=== PATIENT | female | born 1940 | race Caucasian/White ===

== ENCOUNTER 2023-04-29 14:10 | Outpatient (REF) | payer MEDICARE, SELFPAY ==
[2023-04-29 14:21] LABS: Bilirubin Urine NEGATIVE (NEGATIVE); Blood Urine SMALL (NEGATIVE); Clarity Urine SLIGHTLY CLOUDY (CLEAR); Color Urine LT. YELLOW (YELLOW); Glucose Urine UA NEGATIVE (NEGATIVE); Ketones Urine NEGATIVE (NEGATIVE); Leukocyte Esterase Urine SMALL (NEGATIVE); Nitrite Urine POSITIVE (NEGATIVE); Protein Urine NEGATIVE (NEG/TRACE); Specific Gravity Urine 1.025 (1.005-1.025); Urine Microscopic Indicated YES; Urobilinogen Urine 0.2 EU/dL (0.2-1.0)
[2023-04-29 14:28] LABS: Bacteria Urine SMALL #/HPF (NONE SEEN); Cast Seen? NONE SEEN #/LPF (NONE SEEN); Crystals Seen? None Seen #/HPF (None Seen); Mucus Urine NONE SEEN (NONE SEEN); RBC Urine 0-2 #/HPF (0-2); Squamous Epithelial Cell Urine RARE #/LPF (NONE/RARE); Urine Culture Indicated YES
== END 2023-04-29 14:11 | disposition home or self-care (01) ==
LOC: LAB 14:10
PROVIDERS: PCP Family Medicine; Visit Provider Family Medicine
DX: R35.0 Frequency of micturition (principal); R32 Unspecified urinary incontinence
CPT/HCPCS: 81001; 87086; 87150; 87186

== ENCOUNTER 2023-11-04 08:31 | Outpatient (REF) | payer MEDICARE, SELFPAY ==
--- OUTSIDE RECORDS SUMMARY | 2023-11-04 08:38 | XMS_ITS | CCD ---
Author Organization [place] [facility] Care Team Providers Care Engraver Flatware Name Role Phone Whitney Goodman MD Primary Care Provider [phone] DOLORES CHAPA Referring Unavailable WHITNEY GOODMAN Primary Care Unavailable WHITNEY GOODMAN Primary Care Unavailable DOLORES CHAPA Referring Unavailable WHITNEY GOODMAN Primary Care Unavailable UNKNOWN, PHYSICIAN Referring Unavailable JULIETH YOUNG Attending Unavailable BINA MOSCOSO Admitting Unavailable WHITNEY GOODMAN Primary Care Unavailable EMERGENCY, BELLUE Referring Unavailable YANIKC HEALY Admitting Unavailable YANICK HEALY Attending Unavailable MAXINE Gamble, DR OLSON Primary Care Unavailable HOY ., DR OLSON Consulting Unavailable HOY ., DR OLSON Admitting Unavailable HOY ., DR OLSON Attending Unavailable ZIEBER, DR NGOC Villafuerte Consulting Unavailable HOY ., DR OLSON Primary Care Unavailable ZIEBCORNELIUS, DR NGOC Villafuerte Consulting Unavailable ANH RAMIREZ Admitting Unavailable ANH RAMIREZ Attending Unavailable ANH RAMIREZ Consulting Unavailable HOY ., DR OLSON Attending Unavailable HOY ., DR OLSON Primary Care Unavailable HOY ., DR OLSON Admitting Unavailable YENIFER, DR DIANA Villafuerte Consulting Unavailable HOY ., DR OLSON Consulting Unavailable JAZZY, DR МАРИЯ Givens Consulting Unavailable REINA CNOWAY Consulting Unavailable Мария Whittington Consulting Unavailable HARVEYY ., DR OLSON Attending Unavailable HOY ., DR OLSON Primary Care Unavailable HOVern ., DR OLSON Consulting Unavailable MAXINE ., DR OLSON Admitting Unavailable ZIEBCORNELIUS, DR NGOC Villafuerte Consulting Unavailable PAY ., DR BECKER Consulting Unavailable CHRISTINATOMASA REECE Consulting Unavailable HOY ., DR OLSON Primary Care Unavailable HOY ., DR OLSON Consulting Unavailable HOY ., DR OLSON Admitting Unavailable HOY ., DR OLSON Attending Unavailable CURTER, DR NGOC Villafuerte Consulting Unavailable ANAYELI .LEONEL Consulting Unavailabl ana WELLS ., DR IQBAL Consulting Unavailable AHDOOT, LEESA Consulting Unavailable RENEA DIXON Consulting Unavailable KEITH ., JOSE Consulting Unavailable SHAIKH Ady FELIPE Consulting Unavailable MARGAUX WILDE Consulting Unavailable FIDEL MICHAELS Consulting Unavailable HOY ., DR OLSON Consulting Unavailable HOY ., DR OLSON Primary Care Unavailable HOY ., DR OLSON Attending Unavailable HOY ., DR OLSON Admitting Unavailable HOY ., DR OLSON Primary Care Unavailable HOY ., DR OLSNO Consulting Unavailable HOY ., DR OLSON Admitting Unavailable HOY ., DR OLSON Attending Unavailable HOY ., DR OLSON Consulting Unavailable HOY ., DR OLSON Admitting Unavailable HOY ., DR OLSON Attending Unavailable HOY ., DR OLSON Primary Care Unavailable HOY ., DR OLSON Consulting Unavailable HOY ., DR OLSON Admitting Unavailable HOY ., DR OLSON Primary Care Unavailable HOY ., DR OLSON Attending Unavailable HOY ., DR OLSON Primary Care Unavailable KEITH ., JOSE Attending Unavailable KEITH ., JOSE Admitting Unavailable KEITH ., JOSE Consulting Unavailable ANSHUL LOPEZ Consulting Unavailable EBONI CHAN Consulting Unavailable DAVID GRIFFITH Consulting Unavailable MAXINE ., DR OLSON Primary Care Unavailable AUBREY PANTOJA Attending Unavailable YENIFER, DR DIANA Villafuerte Consulting Unavailable AUBREY PANTOJA Admitting Unavailable RONDA, DR NGOC Villafuerte Consulting Unavailable AUBREY PANTOJA Consulting Unavailable JOHNATHON, LEESA Consulting Unavailable JUANITO ADAME Consulting Unavailable SHINE, CHRISTOPHER Referring Unavailable SHINE, CHRISTOPHER Referring Unavailable DEVAN, GEORGE A Referring Unavailable SHINE, CHRISTOPHER Referring Unavailable SHINE, CHRISTFORREST Attending Unavailable DEVAN, GEORGE A Attending Unavailable DEVAN, GEORGE A Attending Unavailable SHINE, CHRISTOPHER Attending Unavailable EBRAHEIM, JASKARAN Referring Unavailable DEVAN, GEORGE A Referring Unavailable SHINE, CHRISTADEER Attending Unavailable ANH RAMIREZ Referring Unavailable VELY, ULISES Admitting Unavailable LEONID WHITTEN Attending Unavailable DEVAN, GEORGE A Referring Unavailable SHINE, CHRISTOPHER Referring Unavailable EBRAHEIM, JASKARAN Referring Unavailable GEORGE HARTMAN Referring Unavailable GEORGINAEVANREMY Referring Unavailable MERZA, NOORALDIN Referring Unavailable GAGANDEEP LUGO Referring Unavailable MERGALLITO, NOORALDIN Referring Unavailable CARLIE SHINE Referring Unavailable GEORGE HARTMAN Attending Unavailable SELF, REFERRED Referring Unavailable CARLIE SHINE Referring Unavailable Allergies Allergy Classification Reported Allergen(s) Allergy Type Date of Onset Reaction(s) Facility Acetaminophen / oxyCODONE (2 sources) Acetaminophen / oxyCODONE Drug Allergy 09-25-19 21 [facility] Adhesive Tape (2 sources) Adhesive Tape Substance Allergy 10-10-19 21 [facility] Quinolones (antibiotic) (2 sources) Ciprofloxacin Drug Allergy 10-10-19 21 Other (See Comments) [facility] Sulfamethoxazole / Trimethoprim (2 sources) Sulfamethoxazole / Trimethoprim Drug Allergy 10-10-19 21 [facility] Sulfonamides (antibiotic) (2 sources) Sulfonamides (Antibiotic) Drug Allergy 10-10-19 21 [facility] (2 sources) Acetaminophen / oxyCODONE Drug Allergy 09-25-19 21 [facility] Rep[facility] (3 sources) Adhesive agent; Translations: [ADHESIVE] Drug allergy (disorder) 06-11-19 14 [facility] (2 sources) Ciprofloxacin Drug Allergy 09-29-19 17 [facility] (2 sources) Penicillin Drug Allergy 11-22-19 22 [facility] (2 sources) Sulfonamides (Antibiotic) Drug allergy (disorder) 12-21-19 12 [facility] (1 source) Acetaminophen / oxyCODONE; Translations: [OXYCODONE-ACETAMIN OPHEN] Drug Allergy 09-25-19 21 [facility] (1 source) Ciprofloxacin; Translations: [CIPROFLOXACIN] Drug Allergy 10-10-19 21 [facility] (1 source) Sulfamethoxazole / Trimethoprim; Translations: [SULFAMETHOXAZOLE-T RIMETHOPRIM] Drug Allergy 10-10-19 21 [facility] Rep[facility] (1 source) Sulfonamides (Antibiotic); Translations: [SULFA (SULFONAMIDE ANTIBIOTICS)] Propensity to adverse reactions to drug (disorder) 04-19-20 14 [facility] Rep[facility] (1 source) ADHESIVE TAPE-SILICONES; Translations: [ADHESIVE TAPE-SILICONES] Propensity to adverse reactions to drug (disorder) 10-10-19 21 [facility] NEGATED: Highlighted row has been ruled out!Unclassified (2 sources) Other Propensity to adverse reactions 06-23-19 16 Rash, Other (See Comments) [facility] Medications Current Medications Medication Drug Class(es) Dates Sig (Normalized) Sig (Original) ALPRAZolam 0.5 mg oral tablet (2 sources) Benzodiazepine Start: 07-15-2020 take 1-2 tablets by mouth three times daily as needed ALPRAZolam (XANAX) 0.5 MG tablet TAKE 1 TO 2 TABLETS BY MOUTH 3 TIMES A DAY NEEDED 0 07/15/2020 Active carbidopa 10 mg / levodopa 100 mg oral tablet (2 sources) Aromatic Amino Acid Decarboxylation Inhibitor, Aromatic Amino Acid Start: 09-28-2020 take 1 tablet by mouth three times daily carbidopa-levodop a (SINEMET) 10-100 MG per tablet TAKE 1 TABLET BY MOUTH THREE TIMES A DAY 0 09/28/2020 Active clonazePAM 0.5 mg oral tablet (1 source) Benzodiazepine Start: 10-28-2020 End: 11-27-2020 take 1 tablet by mouth twice daily clonazePAM (KLONOPIN) 0.5 MG tablet Indications: Anxiety , Panic disorder Take 1 tablet by mouth 2 times daily for 30 days. 60 tablet 3 10/28/2020 11/27/2020 Active hyoscyamine sulfate 0.125 mg sublingual tablet (2 sources) Start: 09-01-2020 hyoscyamine (LEVSIN/SL) 125 MCG sublingual tablet memantine hydrochloride 5 mg oral tablet (1 source) P-gqyvcc-C-aspartate Receptor Antagonist Start: 10-20-2020 take 1 tablet by mouth once daily memantine (NAMENDA) 5 MG tablet Take 1 tablet by mouth nightly 30 tablet 1 10/20/2020 Active metoprolol tartrate 25 mg oral tablet (2 sources) beta-Adrenergic Roberto Start: 10-08-2020 metoprolol tartrate (LOPRESSOR) 25 MG tablet pantoprazole 40 mg delayed release oral tablet (2 sources) Proton Pump Inhibitor Start: 09-06-2020 pantoprazole (PROTONIX) 40 MG tablet sucralfate 1000 mg oral tablet (2 sources) Aluminum Complex Start: 10-08-2020 sucralfate (CARAFATE) 1 GM tablet traMADol hydrochloride 50 mg oral tablet (2 sources) Opioid Agonist take 1 tablet by mouth every four hours as needed for pain traMADol (ULTRAM) 50 MG tablet Take 50 mg by mouth every 4 hours as needed for Pain. 0 Active 24 hr venlafaxine 75 mg extended release oral capsule (2 sources) Serotonin and Norepinephrine Reuptake Inhibitor Start: 10-08-2020 venlafaxine (EFFEXOR XR) 75 MG extended release capsule Problems Active Problems Problem Classification Problem Date Documented Date Episodic/Chronic Abdominal pain (1 source) Abdominal pain; Translations: [Unspecified abdominal pain] Onset: 10-09-2020 10-09-2020 Episodic Acute cerebrovascular disease (1 source) Cerebrovascular accident; Translations: [Cerebral infarction, unspecified] Chronic Acute posthemorrhagic anemia (1 source) Acute posthemorrhagic anemia; Translations: [Acute posthemorrhagic anemia] Onset: 10-15-2020 11-05-2020 Episodic Anxiety disorders (2 sources) Anxiety disorder; Translations: [Anxiety disorder, unspecified] Onset: 10-15-2020 11-13-2020 Chronic Cancer of colon (1 source) Malignant tumor of appendix; 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] Onset: 10-23-2020 11-13-2020 Chronic Cataract (1 source) Age-related nuclear cataract of right eye; Translations: [Age-related nuclear cataract, right eye] Onset: 05-13-2020 11-05-2020 Chronic Chronic obstructive pulmonary disease and bronchiectasis (4 sources) Chronic obstructive lung disease; Translations: [Chronic obstructive pulmonary disease, unspecified] Onset: 03-06-2020 10-09-2020 Chronic Coagulation and hemorrhagic disorders (2 sources) Platelet count below reference range; Translations: [Thrombocytopenia, unspecified] Onset: 10-15-2020 11-13-2020 Chronic Deficiency and other anemia (2 sources) Iron deficiency anemia; Translations: [Iron deficiency anemia, unspecified] Onset: 10-09-2020 10-09-2020 Episodic Delirium, dementia, and amnestic and other cognitive disorders (4 sources) Dementia; Translations: [Unspecified dementia without behavioral disturbance] Onset: 10-15-2020 11-13-2020 Chronic Disorders of lipid metabolism (6 sources) Pure hypercholesterolemia; Translations: [Pure hypercholesterolemia, unspecified] Onset: 03-06-2020 11-05-2020 Chronic Esophageal disorders (3 sources) Gastroesophageal reflux disease; Translations: [Gastro-esophageal reflux disease without esophagitis] Onset: 10-09-2020 10-09-2020 Chronic Essential hypertension (2 sources) Essential hypertension; Translations: [Essential (primary) hypertension] Onset: 10-29-2019 11-05-2020 Chronic Genitourinary symptoms and ill-defined conditions (7 sources) Abnormal urine; Translations: [Other abnormal findings in urine] Onset: 02-25-2020 11-05-2020 Episodic Immunizations and screening for infectious disease (2 sources) Contact with or exposure to other viral diseases; Translations: [Contact with and (suspected) exposure to covid-19] Onset: 02-25-2020 11-05-2020 Episodic Malaise and fatigue (3 sources) Asthenia; Translations: [Weakness] Onset: 02-11-2020 11-05-2020 Episodic Mood disorders (4 sources) Recurrent major depressive episodes, moderate ; Translations: [Major depressive disorder, recurrent, moderate] Onset: 06-23-2015 11-05-2020 Chronic Mood disorders (1 source) Mood disorders; Translations: [DEPRESSION UNSPECIFIED] Onset: 05-12-2022 Neoplasms of unspecified nature or uncertain behavior (1 source) Neoplasm of digestive system; Translations: [Neoplasm of unspecified behavior of digestive system] Onset: 10-15-2020 11-05-2020 Episodic Nutritional deficiencies (1 source) Moderate protein-calorie malnutrition; Translations: [MODERATE PROTEIN-CALORIE MLNUTRIT] Onset: 02-04-2022 Chronic Osteoporosis (2 sources) Other osteoporosis without current pathological fracture; Translations: [Other osteoporosis without current pathological fracture] Onset: 01-25-2022 Chronic Other aftercare (1 source) Long-term current use of drug therapy; Translations: [Other [place] [facility] therapy] Onset: 10-15-2020 11-13-2020 Episodic Other aftercare (2 sources) Encounter for other specified surgical aftercare; Translations: [Encounter for other specified surgical aftercare] Onset: 11-19-2022 Episodic Other and ill-defined heart disease (1 source) Heart disease, unspecified; Translations: [HEART DISEASE UNSPECIFIED] Onset: 02-04-2022 Chronic Other connective tissue disease (2 sources) Presence of left artificial hip joint; Translations: [Presence of left artificial hip joint] Onset: 05-28-2022 Chronic Other infections; including parasitic (2 sources) Personal history of other infectious and parasitic diseases; Translations: [Personal history of COVID-19] Onset: 10-09-2020 10-09-2020 Episodic Other lower respiratory disease (1 source) History of recurrent pneumonia; Translations: [Personal history of pneumonia (recurrent)] Onset: 10-15-2020 11-13-2020 Episodic Other nervous system disorders (1 source) Metabolic encephalopathy; Translations: [METABOLIC ENCEPHALOPATHY] Onset: 02-04-2022 Chronic Parkinson`s disease (3 sources) Parkinson's disease; Translations: [Parkinson's disease] Onset: 09-30-2020 Chronic Residual codes; unclassified (1 source) Sleep apnea; Translations: [Sleep apnea, unspecified] Onset: 10-15-2020 11-13-2020 Chronic Residual codes; unclassified (1 source) Memory impairment; Translations: [Other amnesia] Episodic Residual codes; unclassified (2 sources) Acquired absence of organ; Translations: [Acquired absence of other organs] Onset: 10-09-2020 10-09-2020 Episodic Residual codes; unclassified (1 source) Disorientation, unspecified; Translations: [DISORIENTATION UNSPECIFIED] Onset: 08-22-2022 Episodic Thyroid disorders (5 sources) Hypothyroidism, unspecified; Translations: [HYPOTHYROIDISM UNSPECIFIED] Onset: 02-04-2022 Chronic Unclassified (1 source) PERSONAL HISTORY OF COVID-19; Translations: [PERSONAL HISTORY OF COVID-19] Onset: 05-12-2022 Unclassified (1 source) CONTACT W/AND (SUSP) EXPOS COVID-19; Translations: [CONTACT W/AND (SUSP) EXPOS COVID-19] Onset: 05-12-2022 Urinary tract infections (5 sources) Urinary tract infectious disease; Translations: [Urinary tract infection, site not specified] Onset: 02-11-2020 11-05-2020 Episodic Past or Other Problems Problem Classification Problem Date Documented Da te Episodic/Chronic Acute and unspecified renal failure (2 sources) Acute renal failure syndrome; Translations: [Acute kidney failure, unspecified] Onset: 1 11-13-2020 Episodic Allergic reactions (1 source) Eczema; Translations: [Dermatitis, unspecified] Onset: 9 11-05-2020 Episodic Appendicitis and other appendiceal conditions (1 source) Acute appendicitis; Translations: [Unspecified acute appendicitis] Onset: 0 11-05-2020 Episodic Aspiration pneumonitis; food/vomitus (1 source) Pneumonitis due to inhalation of food and vomit; Translations: [PNEUMONITIS D/T INHAL FOOD AND VOMIT] Onset: 2 Episodic Cardiac dysrhythmias (1 source) Tachycardia, unspecified; Translations: [TACHYCARDIA UNSPECIFIED] Onset: 2 Episodic Conditions associated with dizziness or vertigo (1 source) Dizziness and giddiness; Translations: [Dizziness and giddiness] Onset: 9 11-05-2020 Episodic Deficiency and other anemia (1 source) Iron deficiency anemia, unspecified; Translations: [IRON DEFICIENCY ANEMIA UNSPECIFIED] Onset: 3 Episodic Deficiency and other anemia (1 source) Other iron deficiency anemias; Translations: [OTHER IRON DEFICIENCY ANEMIAS] Onset: 2 Episodic E Codes: Fall (5 sources) Unspecified fall, initial encounter; Translations: [Unspecified fall, sequela] Onset: 3 Episodic E Codes: Place of occurrence (2 sources) Unspecified place in unspecified non-institutional (private) residence as the place of occurrence of the external cause; Translations: [Unspecified place in unspecified non-institutional (private) residence as the place of occurrence of the external cause] Onset: 3 Episodic Fluid and electrolyte disorders (5 sources) Dehydration; Translations: [Dehydration] Onset: 0 11-05-2020 Episodic Fracture of lower limb (6 sources) Unspecified fracture of lower end of left tibia, initial encounter for closed fracture; Translations: [Other fracture of upper and lower end of left fibula, initial encounter for closed fracture] Onset: 2 Episodic Fracture of neck of femur (hip) (3 sources) Fracture of unspecified part of neck of right femur, initial encounter for closed fracture; Translations: [FX UNS PRT NCK RT FEM INIT CLOS] Onset: 3 Episodic Fracture of neck of femur (hip) (1 source) Displaced intertrochanteric fracture of left femur, initial encounter for closed fracture; Translations: [DSPL IT FX LT FEMUR INITIAL CLOS FX] Onset: 2 Episodic Headache; including migraine (1 source) Cervicogenic headache; Translations: [Cervicogenic headache] Onset: 9 11-05-2020 Episodic Menopausal disorders (1 source) Hormone replacement therapy; Translations: [HORMONE REPLACEMENT THERAPY] Onset: 3 Episodic Nausea and vomiting (1 source) Nausea and vomiting; Translations: [Nausea with vomiting, unspecified] Onset: 0 11-05-2020 Episodic Nonspecific chest pain (1 source) Chest pain; Translations: [Chest pain, unspecified] Onset: 0 11-05-2020 Episodic Other aftercare (1 source) Polypharmacy ; Translations: [Other buttermaker helper (current) drug therapy] Onset: 9 11-05-2020 Episodic Other aftercare (1 source) Other buttermaker helper (current) drug therapy; Translations: [OTH [facility] CURRENT DRUG THERAPY] Onset: 3 Episodic Other bone disease and musculoskeletal deformities (1 source) Other specified disorders of bone density and structure, unspecified site; Translations: [OTH D/O BONE DEN STRUCT UNS SITE] Onset: 2 Episodic Other circulatory disease (1 source) Low blood pressure; Translations: [Hypotension, unspecified] Onset: 0 11-05-2020 Episodic Other connective tissue disease (3 sources) Pain in right leg; Translations: [PAIN IN RIGHT LEG] Onset: 3 Episodic Other connective tissue disease (5 sources) Pain in left leg; Translations: [PAIN IN LEFT LEG] Onset: 2 Episodic Other gastrointestinal disorders (1 source) Dysphagia, unspecified; Translations: [DYSPHAGIA UNSPECIFIED] Onset: 2 Episodic Other gastrointestinal disorders (1 source) Constipation, unspecified; Translations: [CONSTIPATION UNSPECIFIED] Onset: 2 Episodic Other hematologic conditions (1 source) Other specified abnormalities of plasma proteins; Translations: [OTH SPEC ABNORM PLASMA PROTEINS] Onset: 2 Episodic Other infections; including parasitic (1 source) H/O: infectious disease; Translations: [Personal history of other infectious and parasitic diseases] Onset: 0 11-05-2020 Episodic Other injuries and conditions due to external causes (1 source) History of fall; Translations: [History of falling] Onset: 0 11-05-2020 Episodic Other injuries and conditions due to external causes (1 source) Personal history of (healed) traumatic fracture; Translations: [PERSONAL HX HEALED TRAUMATIC FX] Onset: 2 Episodic Other lower respiratory disease (1 source) Dyspnea; Translations: [Shortness of breath] Onset: 0 11-05-2020 Episodic Other lower respiratory disease (1 source) Personal history of pneumonia (recurrent); Translations: [PERSONAL HX OF PNEUMONIA RECURRENT] Onset: 3 Episodic Other lower respiratory disease (4 sources) Other nonspecific abnormal finding of lung field; Translations: [OTH NONSPECIFIC ABN FIND LNG FIELD] Onset: 2 Episodic Other nervous system disorders (1 source) Abnormal gait; Translations: [Unspecified abnormalities of gait and mobility] Onset: 9 11-05-2020 Episodic Other non-traumatic joint disorders (5 sources) Pain in left hip; Translations: [PAIN IN LEFT HIP] Onset: 2 Episodic Other nutritional; endocrine; and metabolic disorders (1 source) Body mass index (BMI) 27.0-27.9, adult; Translations: [BODY MASS INDEX BMI 27.0-27.9 ADULT] Onset: 2 Episodic Other screening for suspected conditions (not mental disorders or infectious disease) (2 sources) Blood chemistry abnormal; Translations: [Other specified abnormal findings of blood chemistry] Onset: 0 11-05-2020 Episodic Pneumonia (except that caused by tuberculosis or sexually transmitted disease) (2 sources) Infective pneumonia; Translations: [Pneumonia, unspecified organism] Onset: 0 11-05-2020 Episodic Pulmonary heart disease (1 source) Other pulmonary embolism without acute cor pulmonale; Translations: [OTH PULM EMBO W/O AC COR PULMONALE] Onset: 2 Episodic Residual codes; unclassified (1 source) Acquired absence of other specified parts of digestive tract; Translations: [ACQ ABSENCE OTH PART DIGESTV TRACT] Onset: 3 Episodic Residual codes; unclassified (4 sources) Altered mental status, unspecified; Translations: [ALTERED MENTAL STATUS UNSPECIFIED] Onset: 2 Episodic Septicemia (except in labor) (4 sources) Sepsis, unspecified organism; Translations: [Severe sepsis without septic shock] Onset: 2 Episodic Spondylosis; intervertebral disc disorders; other back problems (1 source) Neck pain; Translations: [Cervicalgia] Onset: 9 11-05-2020 Episodic Results Test Name Value Interpretation Reference Range Facility Follow-Upon 11-19-2022 Follow-Up [id number] Fausto Yanes 1940 F Date Provider Department Center 11/19/2022 CARLIE MITCHELL MP ORTH[facility] MP[facility]THO Family History Family history unknown: Yes Level of Service:81609 OK OFFICE/OUTPATIENT ESTABLISHED LOW MDM 20-29 MIN (GC) Reason for Visit and Comments: Follow-up [964263] Follow-up [[id number]] Normal [facility] 36on 10-26-2022 36 Lvm to call office back to reschedule appointment on 11/12/2022- please schedule on 11/19/2022 Normal [facility] CULTURE URINEon 08-20-2022 CULTURE URINE Normal [facility] Comment on above: Performed By: #### U RCX ####[facility] [id number] [place], [place] [address]Dr. 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 Arnoldo Taylor Color (U) LT. YELLOW Normal YELLOW [facility] Comment on above: Performed By: #### U MICRO, UACSIND ####[facility] [id number] [place] [address]Dr. Arnoldo Taylor Glucose Ql (U) Negative Normal NEGATIVE [facility] Comment on above: Performed By: #### U MICRO, UACSIND ####[facility] [id number] [place], [place] [address]Dr. Arnoldo Taylor Hemoglobin Ql (U) TRACE-INTACT Abnormal NEGATIVE [facility] Comment on above: Performed By: #### U MICRO, UACSIND ####[facility] [id number] [place], [place] [address]Dr. Arnoldo Taylor Ketones Ql (U) Negative Normal NEGATIVE [facility] Comment on above: Performed By: #### U MICRO, UACSIND ####[facility] [id number] [place], [place] [address]Dr. Arnoldo Taylor LEUKOCYTES LARGE Abnormal NEGATIVE [facility] Comment on above: Performed By: #### U MICRO, UACSIND ####[facility] [id number] [place], [place] [address]Dr. Arnoldo Taylor Nitrite Ql (U) Positive Abnormal NEGATIVE [facility] Comment on above: Performed By: #### U MICRO, UACSIND ####[facility] [address] [place], [place] [address]Dr. Arnoldo Taylor pH (U) 5.5 [pH] Normal 5-9 [facility] Comment on above: Performed By: #### U MICRO, UACSIND ####[facility] F[address]fun[address] [place], [place] [address]Dr. Arnoldo Taylor SPEC GRAVITY 1.010 Normal 1.005-<=1.025 [facility] Comment on above: Performed By: #### U MICRO, UACSIND ####[facility] Sdgzlmeaye[address] [place], [place] [address]Dr. Arnoldo Taylor UA PROTEIN Negative Normal NEGATIVE/ TRACE [facility] Comment on above: Performed By: #### U MICRO, UACSIND ####[facility] Yncehgmcvc36[address] [place] [address]Dr. Arnoldo Taylor UR MICRO IND INDICATED Normal [facility] Comment on above: Performed By: #### U MICRO, UACSIND ####[facility] Pguuvvsfxd3027 [place] [address]Dr. Arnoldo Taylor Urobilinogen Qn (U) 0.2 {Adrienne'U}/dL Normal 0.2 - 1. 0 [facility] Comment on above: Performed By: #### U MICRO, UACSIND ####[facility] Cbglhzuwnx[address] [place], [place] [address]Dr. Arnoldo Taylor URINE MICROSCOPIC ONLYon BACTERIA SMALL Abnormal NONE SEEN [facility] Comment on above: Performed By: #### U MICRO, UACSIND ####[facility] Eldjavokju[address] [place], [place] [address]Dr. Arnoldo Taylor Bacteria identified Cx Nom (U) INDICATED Normal [facility] Comment on above: Performed By: #### U MICRO, UACSIND ####[facility] Akrhdbqhjj[address] [place], [place] [address]Dr. Arnoldo Taylor CAST NONE SEEN Normal NONE SEEN [facility] Comment on above: Performed By: #### U MICRO, UACSIND ####[facility] Brrljwymdz[address] [place], [place] [address]Dr. Arnoldo Taylor Crystals LM Nom (Urine sed) NONE SEEN Normal NONE SEEN [facility] Comment on above: Performed By: #### U MICRO, UACSIND ####[facility] Miflqhclfy[address] [place], [place] [address]Dr. Arnoldo Taylor Epithelial cells LM Ql (Urine sed) FEW Abnormal NONE SEEN /RARE [facility] Comment on above: Performed By: #### U MICRO, UACSIND ####[facility] Qvmtwbjlkl48[address] [place] [address]Dr. Arnoldo Taylor MUCOUS NONE SEEN Normal NONE SEEN [facility] Comment on above: Performed By: #### U MICRO, UACSIND ####[facility] [address] [place], [place] [address]Yo. Arnoldo Taylor RBC 0-2 Normal 0-2 [facility] Comment on above: Performed By: #### U MICRO, UACSIND ####[facility] Dyywuywhdr033[address] [place] [id number]. Arnoldo Taylor WBC 5-10 Abnormal NONE SEEN [facility] Comment on above: Performed By: #### U MICRO, UACSIND ####[facility] Taxcpnvdqq4[address] [place] [id number]. Arnoldo Taylor Follow-Upon 07-02-2022 Follow-Up [id number] Fausto Yanes 1940 F Date Provider Department Center 07/02/2022 CARLIE MITCHELL MP ORTHO MPORTHO Family History Family history unknown: Yes Level of Service:51864 [place] POSTOP FOLLOW UP VISIT RELATED TO ORIGINAL PX Reason for Visit and Comments: Follow-up [691270] Follow-up [114709] - Older injury that is bothering her more than her newer left hip surgery. Normal [facility] CBC AUTO DIFFon 06-18-2022 BASO # 0.0 103/ul Normal 0.0-0.1 [facility] Comment on above: Performed By: #### C BC ####[facility] Pbjikthuex97[address] [place] [id number]. Arnoldo Taylor Basophils/100 WBC (Bld) 0.1 % Critically low 0.2-2.0 [facility] Comment on above: Performed By: #### C BC ####[facility] Oektnindyz3286 [place] [id number]. Arnoldo Taylor EO # 0.2 103/ul Normal 0.0-0.7 [facility] Comment on above: Performed By: #### C BC ####[facility] Vtpcmusspl4096 [place] [id number]. Arnoldo Taylor Eosinophils/100 WBC (Bld) 2.4 % Normal 0.9-7.0 [facility] Comment on above: Performed By: #### C BC ####[facility] Ygtsnvgzbh2202 [place] [address]Dr. Arnoldo Taylor Erythrocyte distribution width (RBC) [Ratio] 13.7 % Normal 11.0-15.0 [facility] Comment on above: Performed By: #### C BC ####[facility] Owafnspvri6[address] [place], [place] [address]Dr. Arnoldo Taylor Hematocrit (Bld) [Volume fraction] 32.7 % Critically low 36.0-48.0 [facility] Comment on above: Performed By: #### C BC ####[facility] Utnciwldhf[address] [place], [place] [address]Dr. Arnoldo Taylor Hemoglobin (Bld) [Mass/Vol] 10.5 g/dL Critically low 12.0-16.0 [facility] Comment on above: Performed By: #### C BC ####[facility] Zczzvsghio[address] [place], [place] [address]Dr. Arnoldo Taylor IG # 0.02 10e3/ul Normal 0.00-0.03 [facility] Comment on above: Performed By: #### C BC ####[facility] Rcrwnkdvsk[address] [place], [place] [address]Dr. Arnoldo Taylor IG % 0.3 % Normal 0.0-0.5 [facility] Comment on above: Performed By: #### C BC ####[facility] Bugkucrgbt[address] [place], [place] [address]Dr. Arnoldo Taylor LYMPH # 2.1 103/ul Normal 1.2-3.8 [facility] Comment on above: Performed By: #### C BC ####[facility] Ozfvwelsgz6463[address] [place], [place] [address]Dr. Arnoldo Taylor Lymphocytes/100 WBC (Bld) 31.5 % Normal 20.5-60.0 [facility] Comment on above: Performed By: #### C BC ####[facility] Afdytemkfz[address] [place], [place] [address]Dr. Arnoldo Taylor MANUAL DIFF REQ NO Normal [facility] Comment on above: Performed By: #### C BC ####[facility] Vkuecoyjji12[address] [place] [address]Dr. Arnoldo Taylor MCH (RBC) [Entitic mass] 30.0 pg Normal 26.7-34.0 [facility] Comment on above: Performed By: #### C BC ####[facility] Zxhcbgoeuu3724 [place] [address]Dr. Arnoldo Taylro MCHC (RBC) [Mass/Vol] 32.1 g/dL Normal 29.9-35.2 [facility] Comment on above: Performed By: #### C BC ####[facility] Zyrxqbiodn[address] [place], [place] [address]Dr. Arnoldo Taylor MCV (RBC) [Entitic vol] 93.4 fL Normal 81.0-99.0 [facility] Comment on above: Performed By: #### C BC ####[facility] Xjyorhmchx64[address] [place], [place] [address]Dr. Arnoldo Taylor MONO # 0.8 103/ul Normal 0.3-0.8 [facility] Comment on above: Performed By: #### C BC ####[facility] Poylqttfye[address] [place], [place] [address]Dr. Arnoldo Taylor Monocytes/100 WBC (Bld) 12.3 % Critically high 1.7-12.0 [facility] Comment on above: Performed By: #### C BC ####[facility] Odnhzkehvl[address] [place], [place] [address]Dr. Arnoldo Taylor NEUT # 3.6 103/ul Normal 1.4-6.5 [facility] Comment on above: Performed By: #### C BC ####[facility] Ihoaaydivf[address] [place], [place] [address]Dr. Arnoldo Taylor Neutrophils/100 WBC (Bld) 53.4 % Normal 43.0-75.0 [facility] Comment on above: Performed By: #### C BC ####[facility] Ecckuoqruf[address] [place], [place] [address]Dr. Arnoldo Taylor Platelet mean volume (Bld) [Entitic vol] 8.9 fL Critically low 9.5-13.5 [facility] Comment on above: Performed By: #### C BC ####[facility] Uddgxiyrcb8[address] [place] [address]Dr. Arnoldo Taylor PLT 214 103/ul Normal 150-450 [facility] Comment on above: Performed By: #### C BC ####[facility] Vqawfkuyae1296 [place] [phone]. Arnoldo Taylor RBC 3.50 106/ul Critically low 4.20-5.40 [facility] Comment on above: Performed By: #### C BC ####[facility] Xrglkxhlzv9347 [place] [phone]. Arnoldo Taylor WBC 6.7 103/ul Normal 4.0-11.0 [facility] Comment on above: Performed By: #### C BC ####[facility] Qqirozsmek0768 [place] [address]Dr. Arnoldo Taylor FREE T3on 06-18-2022 FREE T3 1.89 pg/mlL Critically low 2.18-3.98 [facility] Comment on above: Performed By: #### F T3, T4, TSH, BMP ####[facility] Nxfqluxaff0767 [place] [address]Dr. Arnoldo Taylor PROF CHEM 8 (BAS METB)on Anion gap [Moles/Vol] 11.5 mmol/L Normal [facility] Comment on above: Performed By: #### F T3, T4, TSH, BMP ####[facility] Wlmezpnykn5[address] [place] [address]Dr. Arnoldo Taylor Calcium [Mass/Vol] 8.9 mg/dL Normal 8.5-10.1 [facility] Comment on above: Performed By: #### F T3, T4, TSH, BMP ####[facility] Ueocsuzykm6358 [place] [address]Dr. Arnoldo Taylor Chloride [Moles/Vol] 107 mmol/L Normal 98-107 [facility] Comment on above: Performed By: #### F T3, T4, TSH, BMP ####[facility] Xyezncaajs0480 [place] [address]Dr. Arnoldo Taylor CO2 [Moles/Vol] 30.5 mmol/L Normal 21.0-32.0 [facility] Comment on above: Performed By: #### F T3, T4, TSH, BMP ####[facility] Jeqryxmzbp1898 [place] [address]Dr. Arnoldo Taylor Creatinine [Mass/Vol] 0.87 mg/dL Normal 0.55-1.02 [facility] Comment on above: Performed By: #### F T3, T4, TSH, BMP ####[facility] Ajiargtdwo25[address] [place], [place] [address]Dr. Arnoldo Taylor EGFR-AF BURKINAN >60 Normal >=60 [facility] Comment on above: Performed By: #### F T3, T4, TSH, BMP ####[facility] Buswuvwhvd[address] [place], [place] [address]Dr. Arnoldo Taylor EGFR-NON AF BURKINAN >60 Normal >=60 [facility] Comment on above: Performed By: #### F T3, T4, TSH, BMP ####[facility] Glbphilzxg05[address] [place], [place] [address]Dr. Arnoldo Taylor Glucose [Mass/Vol] 91 mg/dL Normal 74-106 [facility] Comment on above: Performed By: #### F T3, T4, TSH, BMP ####[facility] Zlcjrpxgbr4508 [place] [address]Dr. Arnoldo Taylor Potassium [Moles/Vol] 3.0 mmol/L Critically low 3.5-5.1 [facility] Comment on above: Performed By: #### F T3, T4, TSH, BMP ####[facility] Kkozybtgdj02[address] [place], [place] [address]Dr. Arnoldo Taylor Sodium [Moles/Vol] 146 mmol/L Critically high 136-145 [facility] Comment on above: Performed By: #### F T3, T4, TSH, BMP ####[facility] Xxfeesmlbr99[address] [place], [place] [address]Dr. Arnoldo Taylor Urea nitrogen [Mass/Vol] 13.0 mg/dL Normal 7.0-18.0 [facility] Comment on above: Performed By: #### F T3, T4, TSH, BMP ####[facility] Wcarwwykjd06[address] [place], [place] [address]Dr. Arnoldo Taylor Urea nitrogen/Creatinine [Mass ratio] 14.9 mg/mg Normal [facility] Comment on above: Performed By: #### F T3, T4, TSH, BMP ####[facility] Xnjutckjcc[address]24[address] [place], [place] [address]Dr. Arnoldo Taylor T4on 06-18-2022 T4 [Mass/Vol] 9.30 ug/dL Normal 4.80-13.90 [facility] Comment on above: Performed By: #### F T3, T4, TSH, BMP ####[facility] Vmukjredrb[address] [place], [place] [address]Dr. Arnoldo Taylor TSHon 06-18-2022 TSH 1.387 uIU/mL Normal 0.358-3.740 [facility] Comment on above: Performed By: #### F T3, T4, TSH, BMP ####[facility] Drfetzgogo66[address] [place], [place] [address]Dr. Arnoldo Brandon CULTURE URINEon 06-04-2022 CULTURE URINE Isolate 1 Ashlyn glabrata 75,000 cfu/mL of Normal [facility] Comment on above: Performed By: #### U RCX ####[facility] Wmaruyoiiz[address] [place], [place] [address]Dr. Arnoldo Taylor UA (CLEAN/CATCH) CATHEAD WORKER/MICRO I F IND.on 06-04-2022 Bilirubin Ql (U) Negative Normal NEGATIVE [facility] Comment on above: Performed By: #### U ACSCRYSTAL UMICRO ####[facility] Tpwjtzywmb8[address] [place], [place] [address]Dr. Arnoldo Taylor Clarity (U) CLEAR Normal CLEAR [facility] Comment on above: Performed By: #### U ACSCRYSTAL UMICRO ####[facility] Fgauahgnaq[address] [place], [place] [address]Dr. Arnoldo Taylor Color (U) LT. YELLOW Normal YELLOW [facility] Comment on above: Performed By: #### U ACSCRYSTAL UMICRO ####[facility] Zjuiygrryp9389 [place] [address]Dr. Arnoldo Taylor Glucose Ql (U) Negative Normal NEGATIVE [facility] Comment on above: Performed By: #### U ACSIND, UMICRO ####[facility] Aymzboiknh[address] [place], [place] [address]Dr. Lynettesujata Brandon Hemoglobin Ql (U) Negative Normal NEGATIVE [facility] Comment on above: Performed By: #### U ACSIND, UMICRO ####[facility] Bzqtkupmbv13[address] [place], [place] [address]Dr. Arnoldo Taylor Ketones Ql (U) Negative Normal NEGATIVE [facility] Comment on above: Performed By: #### U ACSIND, UMICRO ####[facility] Iedbtktazi[address] [place], [place] [address]Dr. Arnoldo Taylor LEUKOCYTES SMALL Abnormal NEGATIVE [facility] Comment on above: Performed By: #### U ACSCRYSTAL, UMICRO ####[facility] Tuhayguvpt[address] [place], [place] [address]Dr. Arnoldo Taylor Nitrite Ql (U) Negative Normal NEGATIVE [facility] Comment on above: Performed By: #### U ACSCRYSTAL, UMICRO ####[facility] Qnnfucvbgz[address] [place], [place] [address]Dr. Arnoldo Taylor pH (U) 6.0 [pH] Normal 5-9 [facility] Comment on above: Performed By: #### U ACSIND, UMICRO ####[facility] Fjhnuqnzbv33[address] [place], [place] [address]Dr. Arnoldo Taylor SPEC GRAVITY 1.010 Normal 1.005-<=1.025 [facility] Comment on above: Performed By: #### U ACSIND, UMICRO ####[facility] Iovhqijpst[address] [place], [place] [address]Dr. Arnoldo Taylor UA PROTEIN Negative Normal NEGATIVE/ TRACE [facility] Comment on above: Performed By: #### U ACSIND, UMICRO ####[facility] Xoknquhrta4[address] [place], [place] [address]Dr. Arnoldo Taylor UR MICRO IND INDICATED Normal [facility] Comment on above: Performed By: #### U ACSIND, UMICRO ####[facility] Alypmmqfmj7760 [place] [address]Dr. Arnoldo Taylor Urobilinogen Qn (U) 0.2 {Adrienne'U}/dL Normal 0.2 - 1. 0 [facility] Comment on above: Performed By: #### U ACSIND, UMICRO ####[facility] Jijxefgcbs3127 [place] [address]Dr. Arnoldo Brandon URINE MICROSCOPIC ONLYon BACTERIA TRACE Abnormal NONE SEEN [facility] Comment on above: Performed By: #### U ACSCRYSTAL, UMICRO ####[facility] Iqqdimjakf8620 [place] [address]Dr. Lynettesujata Taylor Bacteria identified Cx Nom (U) INDICATED Normal [facility] Comment on above: Performed By: #### U ACSCRYSTAL, UMICRO ####[facility] Z[address]mmwljnjz[address] [place], [place] [address]Dr. Arnoldo Taylor CAST NONE SEEN Normal NONE SEEN [facility] Comment on above: Performed By: #### U ACSCRYSTAL, UMICRO ####[facility] Xbezywvlhs42[address] [place], [place] [address]Dr. Arnoldo Brandon Crystals LM Nom (Urine sed) NONE SEEN Normal NONE SEEN [facility] Comment on above: Performed By: #### U ACSCRYSTAL, UMICRO ####[facility] Igxzhhntdx5[address] [place], [place] [address]Dr. Arnoldo Taylor Epithelial cells LM Ql (Urine sed) FEW Abnormal NONE SEEN /RARE [facility] Comment on above: Performed By: #### U ACSCRYSTAL, UMICRO ####[facility] Onzxjswibs[address] [place], [place] [address]Dr. Arnoldo Taylor MUCOUS NONE SEEN Normal NONE SEEN [facility] Comment on above: Performed By: #### U ACSIND, UMICRO ####[facility] Sxcvcdmvgn7792 [place] [address]Dr. Arnoldo Taylor RBC 0-2 Normal 0-2 [facility] Comment on above: Performed By: #### U ACSIND, UMICRO ####[facility] Sworey[address] [place], [place] [address]Kv. Lynettesujata Taylor WBC 10-20 Abnormal NONE SEEN [facility] Comment on above: Performed By: #### U JESSICA CLEANING ####[facility] Dgoglscbar6401 [place] [phone]. Arnoldo Taylor YEAST PRESENT Abnormal NONE SEEN [facility] Comment on above: Performed By: #### U CHARLY CLEANINGRO ####[facility] Yshjdfnouy27[address] [place] [phone]. 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 Pat nurse said PCP has already been advised and she is not sure who called. Normal [facility] CBC AUTO DIFFon 05-17-2022 BASO # 0.0 103/ul Normal 0.0-0.1 [facility] Comment on above: Performed By: #### C BC ####[facility] Rryylykxzv3593 [place] [address]Dr. Arnoldo Taylor Basophils/100 WBC (Bld) 0.1 % Critically low 0.2-2.0 [facility] Comment on above: Performed By: #### C BC ####[facility] Atbrjaqgwf3167 [place] [id number]. Arnoldo Taylor EO # 0.2 103/ul Normal 0.0-0.7 [facility] Comment on above: Performed By: #### C BC ####[facility] Kwqvhgyhao5165 [place] [id number]. Arnoldo Taylor Eosinophils/100 WBC (Bld) 2.0 % Normal 0.9-7.0 [facility] Comment on above: Performed By: #### C BC ####[facility] Bvuoirvcbe4586 [place] [address]Dr. Arnoldo Taylor Erythrocyte distribution width (RBC) [Ratio] 14.5 % Normal 11.0-15.0 [facility] Comment on above: Performed By: #### C BC ####[facility] Ozkzxfbqrs8120 [place] [address]Dr. Arnoldo Taylor Hematocrit (Bld) [Volume fraction] 26.2 % Critically low 36.0-48.0 [facility] Comment on above: Performed By: #### C BC ####[facility] Ijylizvtjl47[address] [place], [place] [address]Dr. Arnoldo Taylor Hemoglobin (Bld) [Mass/Vol] 8.4 g/dL Critically low 12.0-16.0 [facility] Comment on above: Performed By: #### C BC ####[facility] Qyzpdthvda[address] [place], [place] [address]DrTye Arnoldo Taylor IG # 0.05 10e3/ul Critically high 0.00-0.03 [facility] Comment on above: Performed By: #### C BC ####[facility] Gqwzifunfl[address] [place], [place] [address]Dr. Arnoldo Taylor IG % 0.5 % Normal 0.0-0.5 [facility] Comment on above: Performed By: #### C BC ####[facility] Jgtcclnrtn[address] [place], [place] [address]DrTye Arnoldo Taylor LYMPH # 2.0 103/ul Normal 1.2-3.8 [facility] Comment on above: Performed By: #### C BC ####[facility] Bqaaqislck[address] [place], [place] [address]DrTye Arnoldo Brandon Lymphocytes/100 WBC (Bld) 20.9 % Normal 20.5-60.0 [facility] Comment on above: Performed By: #### C BC ####[facility] Wnedrffuwr8064[address] [place], [place] [address]DrTye Lynettesujata Taylor MANUAL DIFF REQ NO Normal [facility] Comment on above: Performed By: #### C BC ####[facility] Hivrqjfpsp9659 [place] [id number]. Arnoldo Brandon MCH (RBC) [Entitic mass] 29.8 pg Normal 26.7-34.0 [facility] Comment on above: Performed By: #### C BC ####[facility] Fyaiinqngz6803 [place] [id number]. Arnoldo Taylor MCHC (RBC) [Mass/Vol] 32.1 g/dL Normal 29.9-35.2 [facility] Comment on above: Performed By: #### C BC ####[facility] Frestummhg4063 [place] [address]Dr. Arnoldo Taylor MCV (RBC) [Entitic vol] 92.9 fL Normal 81.0-99.0 [facility] Comment on above: Performed By: #### C BC ####[facility] Wfkxnqkmav6[address] [place], [place] [address]DrTye Taylor MONO # 1.2 103/ul Critically high 0.3-0.8 [facility] Comment on above: Performed By: #### C BC ####[facility] Ruhcoelokg7[address] [place], [place] [address]Dr. Arnoldo Taylor Monocytes/100 WBC (Bld) 12.0 % Normal 1.7-12.0 [facility] Comment on above: Performed By: #### C BC ####[facility] Saxqgbjhuj7[address] [place], [place] [address]Dr. Arnoldo Taylor NEUT # 6.2 103/ul Normal 1.4-6.5 [facility] Comment on above: Performed By: #### C BC ####[facility] K[address]bibvcsnr[address] [place], [place] [address]DrTye Taylor Neutrophils/100 WBC (Bld) 64.5 % Normal 43.0-75.0 [facility] Comment on above: Performed By: #### C BC ####[facility] Lfssggltgi4[address] [place], [place] [address]DrTye Taylor Platelet mean volume (Bld) [Entitic vol] 9.6 fL Normal 9.5-13.5 [facility] Comment on above: Performed By: #### C BC ####[facility] Rvgfhpjwdp5640 [place] [id number]. Arnoldo Taylor PLT 212 103/ul Normal 150-450 [facility] Comment on above: Performed By: #### C BC ####[facility] Diawvmwkat6138 [place] [id number]. Arnoldo Taylor RBC 2.82 106/ul Critically low 4.20-5.40 [facility] Comment on above: Performed By: #### C BC ####[facility] Dhnfsfpsih9181 [place] [id number]. Arnoldo Taylor WBC 9.6 103/ul Normal 4.0-11.0 [facility] Comment on above: Performed By: #### C BC ####[facility] Ptkgbjowpc3507 [place] [address]Dr. Arnoldo Taylor PROF CHEM 8 (BAS METB)on Anion gap [Moles/Vol] 10.5 mmol/L Normal [facility] Comment on above: Performed By: #### B MP ####[facility] Jcpgsunihd[address] [place], [place] [address]Dr. Arnoldo Taylor Calcium [Mass/Vol] 8.8 mg/dL Normal 8.5-10.1 [facility] Comment on above: Performed By: #### B MP ####[facility] Ybmrtokjoj3682 [place] [address]Dr. Arnoldo Taylor Chloride [Moles/Vol] 103 mmol/L Normal 98-107 [facility] Comment on above: Performed By: #### B MP ####[facility] Mzwigndjjl3966 [place] [phone] Taylor CO2 [Moles/Vol] 30.5 mmol/L Normal 21.0-32.0 [facility] Comment on above: Performed By: #### B MP ####[facility] Omqhrsgkje0236 [place] [id number]. Arnoldo Taylor Creatinine [Mass/Vol] 0.83 mg/dL Normal 0.55-1.02 [facility] Comment on above: Performed By: #### B MP ####[facility] Abljipsdwx7495 [place] [id number]. Arnoldo Taylor EGFR-AF BURKINAN >60 Normal >=60 [facility] Comment on above: Performed By: #### B MP ####[facility] Btgfmhbukv8341 [place] [id number]. Lynettesujata Brandon EGFR-NON AF BURKINAN >60 Normal >=60 [facility] Comment on above: Performed By: #### B MP ####[facility] Ndjotbjsya2866 [place] [id number]. Arnoldo Taylor Glucose [Mass/Vol] 96 mg/dL Normal 74-106 [facility] Comment on above: Performed By: #### B MP ####[facility] Himugygrep1530 [place] [address]Dr. Arnoldo Taylor Potassium [Moles/Vol] 4.0 mmol/L Normal 3.5-5.1 [facility] Comment on above: Performed By: #### B MP ####[facility] Rlzgowibih5953 [place] [id number]. Arnoldo Taylor Sodium [Moles/Vol] 140 mmol/L Normal 136-145 The [facility] Comment on above: Performed By: #### B MP ####[facility] [id number] [id number]. Arnoldo Taylor Urea nitrogen [Mass/Vol] 22.0 mg/dL Critically high 7.0-18.0 [facility] Comment on above: Performed By: #### B MP ####[facility] [id number] [id number]. Arnoldo Taylor Urea nitrogen/Creatinine [Mass ratio] 26.5 mg/mg Normal [facility] Comment on above: Performed By: #### B MP ####[facility] [id number] [id number]. Arnoldo Taylor BASIC METABOLIC PANELon 05-02 Anion gap [Moles/Vol] 8 mmol/L Normal 7-20 [facility] Comment on above: Performed By: #### L [id number] ####[facility] [place] [address] Calcium [Mass/Vol] 8.8 mg/dL Normal 8.6-10.3 [facility] Comment on above: Performed By: #### L [id number] ####[facility] ([facility])[address] [place] [address] Chloride [Moles/Vol] 105 mmol/L Normal 98-107 [facility] Comment on above: Performed By: #### L [id number] ####[facility] ([facility])[address] [place] [address] CO2 [Moles/Vol] 24 mmol/L Normal 21-31 [facility] Comment on above: Performed By: #### L [id number] ####[facility] ([facility])[address] [place] [address] Creatinine [Mass/Vol] 0.93 mg/dL Normal 0.60-1.20 [facility] Comment on above: Performed By: #### L [id number] ####[facility] ([facility])[address] [place] [address] GLOMERULAR FILTRATION RATE ML/MIN/1.73 SQ M.PREDICTED 58.6 mL/min/1.73m*2 Low >60.0 [facility] Comment on above: Result Comment: The [facility]???s estimated glomerular filtration rate (eGFR) will no longer include consideration of race in its calculation. The National Kidney Foundation???s eGFR Task Force developed new recommendations for the estimation of the glomerular filtration rate in the [place] They recommend immediate implementation of the new equation refit without the race variable in all laboratories because the calculation does not include race. In addition to not including race in the calculation and reporting, it included diversity in its development, and has acceptable performance characteristics and potential consequences that do not disproportionately affect any one group of individuals. Performed By: #### L [id number] ####[facility] ([facility] [place] [address] Glucose [Mass/Vol] 164 mg/dL High 70-100 [facility] Comment on above: Performed By: #### L [id number] ####[facility] ([facility])[address] [place] [address] Potassium [Moles/Vol] 4.2 mmol/L Normal 3.5-5.1 [facility] Comment on above: Performed By: #### L [id number] ####[facility] ([facility])[address] [place] [address] Sodium [Moles/Vol] 137 mmol/L Normal 136-145 [facility] Comment on above: Performed By: #### L [id number] ####[facility] ([facility])[address] [place] [address] Urea nitrogen [Mass/Vol] 17 mg/dL Normal 7-25 [facility] Comment on above: Performed By: #### L [id number] ####[facility] ([facility])[address] [place] [address] UREA NITROGEN/CREATININE (MASS RATIO) IN SER/PLAS 18.28 Normal [facility] Comment on above: Performed By: #### L [id number] ####[facility] ([facility])[address] [place] [address] CBCon 05-12-2022 Erythrocyte distribution width (RBC) [Ratio] 13.6 % Normal 11.5-15.0 [facility] Comment on above: Performed By: #### L [id number] ####[facility] ([facility])[address] [place] [address] ERYTHROCYTE MEAN CORPUSCULAR HEMOGLOBIN CONCENTRATION (G/DL) BY AUTOMATED 34.0 g/dL Normal 32.0-35.0 [facility] Comment on above: Performed By: #### L [id number] ####[facility] ([facility])[address] [place] [address] Hematocrit (Bld) [Volume fraction] 28.8 % Low 36.0-48.0 [facility] Comment on above: Performed By: #### L [id number] ####[facility] [place] [address] Hemoglobin (Bld) [Mass/Vol] 9.8 g/dL Low 12.0-15.0 [facility] Comment on above: Performed By: #### L [id number] ####[facility] ([facility] [place] [address] MCH (RBC) [Entitic mass] 30.8 pg Normal 27.0-33.0 [facility] Comment on above: Performed By: #### L [id number] ####[facility] ([facility])[address] [place] [address] MCV (RBC) [Entitic vol] 90.6 fL Normal 82.0-98.0 [facility] Comment on above: Performed By: #### L [id number] ####[facility] ([facility])[address] [place] [address] PLATELETS (10*3/UL) IN BLOOD AUTOMATED COUNT 111 10*3/uL Low 150-400 [facility] Comment on above: Performed By: #### L [id number] ####[facility] ([facility])[address] [place] [address] RBC (Bld) [#/Vol] 3.18 10*6/uL Low 3.80-5.00 [facility] Comment on above: Performed By: #### L [id number] ####[facility] ([facility])[address] [place] [address] WBC (Bld) [#/Vol] 11.38 10*3/uL High 4.00-10.60 [facility] Comment on above: Performed By: #### L [id number] ####[facility] ([facility] [place] [address] MAGNESIUMon 05-12-2022 Magnesium [Mass/Vol] 1.5 mg/dL Low 1.9-2.7 [facility] Comment on above: Performed By: #### L [id number] ####[facility] ([facility])[address] [place] [address] PHOSPHORUSon 05-12-2022 Magnesium [Mass/Vol] 2.6 mg/dL Normal 2.5-5.0 [facility] Comment on above: Performed By: #### L [id number] ####[facility] ([facility])[address] [place] [address] Anesthesiaon 05-11-2022 Anesthesia [id number] Fausto Yanes 1940 F Date Provider Department Center 05/11/2022 ELISHA SINGLETON [facility] [place] [facility] Family History Family history unknown: Yes Normal [facility] BASIC METABOLIC PANELon 05-02 Anion gap [Moles/Vol] 6 mmol/L Low 7-20 [facility] Comment on above: Performed By: #### L [id number] ####[facility] ([facility])[address] [place] [address] Calcium [Mass/Vol] 9.1 mg/dL Normal 8.6-10.3 [facility] Comment on above: Performed By: #### L [id number] ####[facility] ([facility])[address] [place] [address] Chloride [Moles/Vol] 106 mmol/L Normal 98-107 [facility] Comment on above: Performed By: #### L [id number] ####[facility] ([facility])[address] [place] [address] CO2 [Moles/Vol] 27 mmol/L Normal 21-31 [facility] Comment on above: Performed By: #### L [id number] ####[facility] ([facility])[address] [place] [address] Creatinine [Mass/Vol] 0.84 mg/dL Normal 0.60-1.20 [facility] Comment on above: Performed By: #### L [id number] ####[facility] ([facility])[address] [place] [address] GLOMERULAR FILTRATION RATE ML/MIN/1.73 SQ M.PREDICTED 66.3 mL/min/1.73m*2 Normal >60.0 [facility] Comment on above: Result Comment: The [facility]???s estimated glomerular filtration rate (eGFR) will no longer include consideration of race in its calculation. The National Kidney Foundation???s eGFR Task Force developed new recommendations for the estimation of the glomerular filtration rate in the [place] They recommend immediate implementation of the new equation refit without the race variable in all laboratories because the calculation does not include race. In addition to not including race in the calculation and reporting, it included diversity in its development, and has acceptable performance characteristics and potential consequences that do not disproportionately affect any one group of individuals. Performed By: #### L [id number] ####[facility] ([facility])[address] [place] [address] Glucose [Mass/Vol] 100 mg/dL Normal 70-100 [facility] Comment on above: Performed By: #### L [id number] ####[facility] ([facility])[address] [place] [address] Potassium [Moles/Vol] 4.2 mmol/L Normal 3.5-5.1 [facility] Comment on above: Performed By: #### L [id number] ####[facility] ([facility])[address] [place] [address] Sodium [Moles/Vol] 139 mmol/L Normal 136-145 [facility] Comment on above: Performed By: #### L [id number] ####[facility] ([facility])[address] [place] [address] Urea nitrogen [Mass/Vol] 18 mg/dL Normal 7-25 [facility] Comment on above: Performed By: #### L [id number] ####[facility] ([facility])[address] [place] [address] UREA NITROGEN/CREATININE (MASS RATIO) IN SER/PLAS 21.43 Normal [facility] Comment on above: Performed By: #### L [id number] ####[facility] ([facility])[address] [place] [address] CBCon 05-11-2022 Erythrocyte distribution width (RBC) [Ratio] 13.7 % Normal 11.5-15.0 [facility] Comment on above: Performed By: #### L [id number] ####[facility] ([facility])[address] [place] [address] ERYTHROCYTE MEAN CORPUSCULAR HEMOGLOBIN CONCENTRATION (G/DL) BY AUTOMATED 33.3 g/dL Normal 32.0-35.0 [facility] Comment on above: Performed By: #### L [id number] ####[facility] ([facility] [place] [address] Hematocrit (Bld) [Volume fraction] 37.2 % Normal 36.0-48.0 [facility] Comment on above: Performed By: #### L [id number] ####[facility] ([facility] [place] [address] Hemoglobin (Bld) [Mass/Vol] 12.4 g/dL Normal 12.0-15.0 [facility] Comment on above: Performed By: #### L [id number] ####[facility] ([facility])[address] [place] [address] IMMATURE PLATELET FRACTION % 1.5 % Normal 0.8-6.3 [facility] Comment on above: Performed By: #### L [id number] ####[facility] ([facility])[address] [place] [address] MCH (RBC) [Entitic mass] 30.5 pg Normal 27.0-33.0 [facility] Comment on above: Performed By: #### L [id number] ####[facility] ([facility])[address] [place] [address] MCV (RBC) [Entitic vol] 91.4 fL Normal 82.0-98.0 [facility] Comment on above: Performed By: #### L [id number] ####[facility] ([facility])[address] [place] [address] PLATELETS (10*3/UL) IN BLOOD AUTOMATED COUNT 130 10*3/uL Low 150-400 [facility] Comment on above: Performed By: #### L [id number] ####[facility] ([facility])[address] [place] [address] RBC (Bld) [#/Vol] 4.07 10*6/uL Normal 3.80-5.00 [facility] Comment on above: Performed By: #### L [id number] ####[facility] ([facility])[address] [place] [address] WBC (Bld) [#/Vol] 8.01 10*3/uL Normal 4.00-10.60 [facility] Comment on above: Performed By: #### L [id number] ####[facility] ([facility])[address] [place] [address] CONSULTon 05-11-2022 CONSULT -- Attestation signed by Ulises Thomas MD at 05/11/2022 10:27 PM I personally saw and examined the patient on the same date of service as the Non-Physician Provider LEONEL Wasserman. I discussed the findings and therapeutic plan with the Non-Physician Provider LEONEL Wasserman. I agree with the documentation, except for any edits/updates below. Teaching Physician's Revisions: 81 year old woman in fall with right hip fracture on anticoagulation (Eliquis) Geriatric consult Ortho consult Reason For Consult Fall, primary Referring Provider: Hospital medicine History Of Present Illness Myranda A Jimbo is a 81 y.o. female presenting with Hip Pain. She was a transfer from [place] for a fall, hip fracture. Patient is a very poor historian with no family at bedside Per OSH report, she was found down at 1am at her nursing facility on 05/10 and taken to [facility], where she was found to have a right femoral neck fracture. Upon exam patient admits to right hip pain, denies headache, neck pain, chest pain, abdominal pain Of note she had a left hip fracture in October that was operative fixation and left tibia fracture 2 weeks later Patient is on anticoagulation: Eliquis Past Medical History She has a past medical history of Anxiety, COPD (chronic obstructive pulmonary disease) ([facility]), Dementia ([facility]), GERD (gastroesophageal reflux disease), and Hypertension. Surgical History She has a past surgical history that includes Hip surgery (Left). Family History Family History Family history unknown: Yes Social History She reports that she has never smoked. She has never used smokeless tobacco. She reports that she does not drink alcohol. No history on file for drug use. Allergies Sulfa (sulfonamide antibiotics), Adhesive, Adhesive tape-silicones, Ciprofloxacin, Oxycodone-acetaminophe n, and Sulfamethoxazole-trime thoprim Medications (Not in a hospital admission) Active Hospital Medications Medication Dose Route Frequency Last Admin acetaminophen 650 mg oral q6h PRN ALPRAZolam 0.25 mg oral TID PRN 0.25 mg at 05/10/22 2340 D5 % and 0.9 % sodium chloride 50 mL/hr intravenous Continuous 50 mL/hr at 05/11/22 0300 HYDROmorphone 0.4 mg intravenous q3h PRN 0.4 mg at 05/11/22 0020 metoprolol tartrate 12.5 mg oral BID 12.5 mg at 05/10/22 2303 pantoprazole 40 mg oral Daily 40 mg at 05/10/22 2304 prazosin 1 mg oral Nightly 1 mg at 05/10/22 2304 sodium chloride 10 mL intravenous q8h PRN Review of Systems Negative unless stated in HPI Last Recorded Vitals Patient Vitals for the past 24 hrs: BP Temp Temp src Pulse Resp SpO2 Height Weight 05/11/22 0243 134/61 -- -- (!) 112 -- 96 % -- -- 05/11/22 0226 133/59 -- -- (!) 115 -- 96 % -- -- 05/11/22 0216 133/61 -- -- (!) 121 -- 96 % -- -- 05/11/22 0206 139/65 -- -- 109 -- 97 % -- -- 05/11/22 0156 142/66 -- -- 104 -- 97 % -- -- 05/11/22 0146 133/69 -- -- 109 -- 98 % -- -- 05/11/22 0136 141/60 -- -- 101 -- 98 % -- -- 05/11/22 0123 129/63 -- -- 103 -- 96 % -- -- 05/11/22 0115 134/70 -- -- 97 -- 94 % -- -- 05/11/22 0105 132/60 -- -- 97 -- 95 % -- -- 05/11/22 0055 130/73 -- -- 94 -- 93 % -- -- 05/11/22 0028 117/62 -- -- 101 -- 98 % -- -- 05/11/22 0016 132/68 -- -- 96 -- 97 % -- -- 05/10/22 2243 163/84 -- -- -- -- 94 % -- -- 05/10/22 2233 173/80 -- -- -- -- 93 % -- -- 05/10/22 2224 (!) 181/87 -- -- 108 22 95 % -- -- 05/10/22 2130 (!) 181/95 -- -- -- -- 94 % -- -- 05/10/22 2116 (!) 160/92 36.1 ???C (97 ???F) Oral 93 20 100 % 1.702 m (5' 7 ) 74.8 kg (165 lb) Physical Exam General: Awake, Alert, No acute distress Head: Normocephalic And Atraumatic. Mid Face Stable. Tympanic Membranes Intact. Nares Patent Bilaterally, No Epistaxis. Mouth Clear Of Foreign Bodies, No Lacerations Or Abrasions, Teeth Intact Eyes: PERRL. EOMI. Atraumatic Neurologic: Alert And Oriented X1. Moving Extremities And Following Commands. CN 2-12 Grossly Intact Neck: Cervical Spine Is Nontender To Palpation Without Step-Offs, Crepitus, Or Deformity. No Abrasions, Contusions, Or Ecchymosis Noted Back: Thoracic And Lumbar Spine Are Nontender To Palpation Without Step-Offs, Crepitus, Or Deformity. No Abrasions, Contusions, Or Ecchymosis Noted Lungs: Clear To Auscultation Bilaterally With Normal Work Of Breathing On Room Air Chest Wall: Chest Rise Symmetrical. No Crepitus, Deformities, Lacerations, Or Abrasions Heart: RRR. Normal S1/S2. No Obvious Murmurs Abdomen: Soft, Nontender, And Nondistended With Normoactive Bowel Sounds. No Guarding, Non-Peritoneal Pelvis: Pelvis Is Stable To Compression, tenderness to right hip GI/: No Blood At The Urinary Meatus. No Gross Hematuria Extremities: No Gross Deformities. Pulse, Motor, And Sensation Intact Bilaterally Skin: Warm And Dry. Normal For Ethnic (more content not included)... Normal [facility] CT CERVICAL SPINE WO IV CONT [facility] 05-11-2022 CT CERVICAL SPINE WO IV CONTRAST CT CERVICAL SPINE WO IV CONTRAST 05/11/2022 12:00 AM CLINICAL INDICATIONS: Neck pain, fall. TECHNIQUE: Multi detector CT axial slices of the cervical spine are obtained. Coronal and sagittal reformats obtained. All CT scans at this facility use dose modulation, iterative reconstruction, and/or weight based dosing when appropriate to reduce radiation dose to as low as reasonably achievable COMPARISON: 11/21/2021. FINDINGS: No acute fracture or malalignment of cervical spine. Intact dens. Normal atlantodental interval. Unremarkable prevertebral soft tissues. Multilevel facet hypertrophy. Atlantodental spurring. Biapical pleural thickening, which was seen on prior chest radiograph. 3-4 mm anterior right upper lobe nodule axial image 75 series 3. Additional 6 mm groundglass nodule anterior upper lobe and 3 mm solid nodule anterior upper lobe axial images 64 and 66, respectively. A 1.5 cm low-density nodule right thyroid. IMPRESSION: 1. No acute fracture or malalignment of cervical spine. MRI or flexion/extension radiographs can be considered if concerns for occult or ligamentous injury. 2. Incidental 1.5 cm right thyroid nodule, recommend thyroid ultrasound in the outpatient setting. 3. There is a 3-4 mm anterior right upper lobe pulmonary nodule. Additional 6 mm groundglass nodule anterior upper lobe and 3 mm solid nodule anterior upper lobe. Follow-up CT chest in 12 months is advised for Fleischner guidelines. Approved by:Miguel Benavidez05/11/2022 1:04 AM. I, Duarte Pollard,have reviewed the image(s) and agree with the findings in this report. Electronically signed: Duarte Pollard. Normal [facility] HEMOGLOBIN A1Con 05-11-2022 Glucose [Mass/Vol] 93.93 mg/dL Normal [facility] Comment on above: Performed By: #### L [id number] ####[facility] ([facility])[address] [place] [address] HbA1c (Bld) [Mass fraction] 4.9 % Normal 4.0-6.0 [facility] Comment on above: Performed By: #### L [id number] ####[facility] ([facility])[address] [place] [address] HPon 05-11-2022 HP History Of Present Illness Myranda Yanes is a 81 y.o. female presenting with Hip Pain. This is a 81 years old female lady with a medical history of hypertension, advanced vascular dementia, deafness type II, Parkinson disease, peripheral neuropathy, gastroesophageal reflux disease, hypothyroidism, ideation hours anxiety disorder, obstructive sleep apnea, thrombocytopenia unspecified, iron deficiency anemia. She came into [facility] ED as a transfer from outside hospital /[facility] for fall and hip fracture. The patient is very poor historian and she has advanced dementia and the details from the record & medical report from the ED physician as that she was found on the floor at 1am 05/10/22 and taken to [facility]. And found to have a R femoral neck fracture and bruising to her forehead when found. She denies loss of consciousness and is on plavix/on a different report they state that she is on Eliquis we will need to verified as the care everywhere in [facility] does not show the correct medication list. Follow radiological evaluation and trauma consult was placed and we are trying to work her up for possible medical clearance Past Medical History She has a past medical history of Anxiety, COPD (chronic obstructive pulmonary disease) ([facility]), Dementia ([facility]), GERD (gastroesophageal reflux disease), and Hypertension. Surgical History She has a past surgical history that includes Hip surgery (Left). Social History She reports that she has never smoked. She has never used smokeless tobacco. She reports that she does not drink alcohol. No history on file for drug use. Family History Family History Family history unknown: Yes Allergies Sulfa (sulfonamide antibiotics), Adhesive, Adhesive tape-silicones, Ciprofloxacin, Oxycodone-acetaminophe n, and Sulfamethoxazole-trime thoprim Medications (Not in a hospital admission) Review of Systems Constitutional: Positive for activity change and fatigue. Psychiatric/Behavioral : Positive for confusion. All other systems reviewed and are negative. Last Recorded Vitals Patient Vitals for the past 24 hrs: BP Temp Temp src Pulse Resp SpO2 Height Weight 05/10/22 2224 (!) 181/87 -- -- 108 22 95 % -- -- 05/10/22 2130 (!) 181/95 -- -- -- -- 94 % -- -- 05/10/22 2116 (!) 160/92 36.1 ???C (97 ???F) Oral 93 20 100 % 1.702 m (5' 7 ) 74.8 kg (165 lb) Physical Exam Vitals and nursing note reviewed. Constitutional: Appearance: Normal appearance. She is normal weight. HENT: Head: Normocephalic. Comments: Bruises at the forehead area Right Ear: Tympanic membrane and external ear normal. Left Ear: Ear canal normal. Nose: Nose normal. Mouth/Throat: Mouth: Mucous membranes are moist. Pharynx: Oropharynx is clear. Eyes: Conjunctiva/sclera: Conjunctivae normal. Pupils: Pupils are equal, round, and reactive to light. Cardiovascular: Rate and Rhythm: Normal rate. Pulmonary: Effort: Pulmonary effort is normal. Abdominal: General: Abdomen is flat. Bowel sounds are normal. Musculoskeletal: General: Normal range of motion. Cervical back: Neck supple. Skin: General: Skin is warm. Capillary Refill: Capillary refill takes 2 to 3 seconds. Neurological: General: No focal deficit present. Mental Status: She is alert. Mental status is at baseline. She is disoriented. Psychiatric: Mood and Affect: Mood normal. Relevant Lab Results Lab Results Component Value Date CO2 28 11/28/2021 BUN 21 11/28/2021 CALCIUM 8.1 (L) 11/28/2021 EGFR >60 11/28/2021 Relevant Imaging Results XR hip left 2 or 3 views Narrative: XR HIP 2 OR 3 VW LEFT 03/30/2022 9:26 AM Clinical Indication: Orthopedic follow-up. Comparison: 02/23/2022 FINDINGS: Status post intramedullary nail fixation of the left proximal femur, with no evidence of hardware associated complication. Similar appearance of heterotopic bone formation about the left greater and lesser trochanters. Similar appearance of nondisplaced lesser trochanter fracture. Significant degenerative changes of the visualized lumbar spine. Impression: Stable appearance of left hip hardware with no evidence of complication. Approved by:Rochelle Camarillo04/01/2022 8:39 AM. I, Michel Willett,have reviewed the image(s) and agree with the findings in this report. Electronically signed: Michel Willett. XR tibia fibula 2 views left Narrative: XR TIBIA FIBULA 2 VIEWS LEFT 03/30/2022 9:26 AM Clinical Indication: Orthopedic follow-up, left leg pain. Comparison: 02/23/2022. FINDINGS: Status post intramedullary nikhil fixation of the left tibia, with no evidence of hardware associated complication. Stable alignment and similar appearance of healing progression at distal tibia and fibula distal diaphyseal oblique fractures. Degenerative changes of the left knee joint and posterior calcaneal enthesophytosis. Impression: 1.No acute findings. 2.Intramedullary nikhil internal fixation o (more content not included)... Normal [facility] LIPID PANELon 05-11-2022 CHOL/HDL 3.96 mg/dL Normal [facility] Comment on above: Performed By: #### L [id number] ####[facility] ([facility])[address] [place] [address] Cholesterol [Mass/Vol] 198 mg/dL Normal 120-200 [facility] Comment on above: Performed By: #### L [id number] ####[facility] ([employer])[address] [place] [address] Magnesium [Mass/Vol] 95 mg/dL Normal 40-149 [facility] Comment on above: Result Comment: TRIG LYCERIDE REFERENCE RANGE: 20 YEARS AND OLDER CARDIOVASCULAR RISK LESS THAN 150 mg/dL LOW RISK 150 TO 199 mg/dL BORDERLINE RISK 200 mg/dL AND GREATER HIGH RISK Performed By: #### L [id number] ####[facility] ([facility])[address] [place] [address] Magnesium [Mass/Vol] 129 mg/dL Normal 0-160 [facility] Comment on above: Performed By: #### L [id number] ####[facility] ([facility])[address] [place] [address] Magnesium [Mass/Vol] 50 mg/dL Normal 23-92 [facility] Comment on above: Performed By: #### L [id number] ####[facility] ([facility])[address] [place] [address] NON HDL CHOL. (LDL+VLDL) 148 Normal [facility] Comment on above: Performed By: #### L [id number] ####[facility] ([facility])[address] [place] [address] TOTAL VLDL-C 19 mg/dL Normal 0-40 [facility] Comment on above: Performed By: #### L [id number] ####[facility] ([facility])[address] [place] [address] OPNOTEon 05-11-2022 OPNOTE -- Attestation signed by Carlie Shine MD at 05/11/2022 8:37 PM I agree with above documentation. Date: 05/11/2022 Location: [facility] OR Name: Myranda Yanes, : 1940, Diagnosis Pre-op Diagnosis * Closed fracture of neck of right femur, initial encounter ([facility]) [S72.001A] Post-op Diagnosis * Closed fracture of neck of right femur, initial encounter ([facility]) [S72.001A] Procedures * Right femur hemiarthroplasty Surgeons * Carlie Shine - Primary Procedure Summary Anesthesia: General ASA: III Estimated Blood Loss: 150 mL Total IV Fluids: See anesthesia note. Drains: Urethral Catheter (Active) Site Assessment Other (Comment) 05/11/22 1450 Collection Container Standard drainage bag 05/11/22 0507 Output (mL) 250 mL 05/11/22 0508 Implants Type Name Action Serial No. Bone Cement CEMENT,BONE,R,1X40US - [id number] Wasted Echo FX Hip System Implanted Total Joint PLUG,BONE,LARGE - [id number] Implanted Distal Centralizer/Centering Sleeve Implanted Bone Cement CEMENT,BONE,R,1X40US - [id number] Implanted Total Joint INSERT,ENDO II TAPER,STD - [id number] Implanted Total Joint HEAD,MODULAR,49MM - [id number] Implanted Staff: Oil Burner: Aidan Park RN Relief Scrub: Batsheva Smith Scrub Person: Susana Guerrero, INDUSTRIAL SAFETY AND HEALTH MANAGER Indications: Myranda Yanes is an 81 y.o. female who is having surgery for Closed fracture of neck of right femur, initial encounter ([facility]) [S72.001A]. Findings: femoral neck fracture, displaced minimally Complications: None; patient tolerated the procedure well. Disposition: PACU - hemodynamically stable. Condition: stable Specimens Collected: No specimens collected during this procedure. Attending Attestation: I was present for the entire procedure. Carlie Shine Dictated by Мария Pillai MD Orthopedic Surgery, PGY-2 Pager [phone] [facility] OPNOTE Right femur hemiarthroplasty (R) Operative Note Date: 05/11/2022 Location: [facility] OR Name: Myranda Yanes, : 1940, Diagnosis Pre-op Diagnosis * Closed fracture of neck of right femur, initial encounter ([facility]) [S72.001A] Post-op Diagnosis * Closed fracture of neck of right femur, initial encounter ([facility]) [S72.001A] Procedures * Right femur hemiarthroplasty Surgeons * Carlie Shine - Primary Procedure Summary Anesthesia: General ASA: III Estimated Blood Loss: 350 mL Total IV Fluids: see anesthesia note Drains: Urethral Catheter (Active) Site Assessment Other (Comment) 05/11/22 1450 Collection Container Standard drainage bag 05/11/22 0507 Output (mL) 250 mL 05/11/22 0508 Implants Type Name Action Serial No. Bone Cement CEMENT,BONE,R,1X40US - [id number] Wasted Echo FX Hip System Implanted Total Joint PLUG,BONE,LARGE - [id number] Implanted Distal Centralizer/Centering Sleeve Implanted Bone Cement CEMENT,BONE,R,1X40US - [id number] Implanted Total Joint INSERT,ENDO II TAPER,STD - [id number] Implanted Total Joint HEAD,MODULAR,49MM - [id number] Implanted Staff: Oil Burner: Aidan Park RN Relief Scrub: Batsheva Smith Scrub Person: Susana Guerrero CST Indications: Myranda Yanes is an 81 y.o. female who is having surgery for Closed fracture of neck of right femur, initial encounter ([facility]) [S72.001A]. DISPOSITION: PACU. FINDINGS: Displaced femoral neck fracture, stable. Palpable pulse, equal leg at the completion of the case. No iatrogenic fracture on postop Xray. IMPLANTS USED: Biomet size #11 cemented Echo hemiarthroplasty stem, standard neck, 49 head, cement restrictor. HISTORY OF PRESENT ILLNESS/INDICATION FOR SURGERY: Pt is a 81 yo F with dementia who sustained a mechanical fall with right hip pain and inability to ambulate. Radiographic imaging identified a right slighlty displaced and comminuted femoral neck fracture indicating for the aforementioned hemiarthroplasty procedure. The patient has multiple medical problems and has been seen evaluated and optimized for surgical intervention by the Medical and Trauma Services. Risks, benefits, alternatives, surgical versus nonoperative management including bleeding, infection, , damage to normal structure, PE, DVT, SC, stroke, nonunion, malunion, chronic pain, arthrosis, arthritis, limited function, and need for further surgical intervention. The patient and family understand possibility of hip dislocation as a complication of the procedure. The patient/family understand the limited function need for assistive devices with rehabilitation, high risk of mortality at 1 year and the risks of recumbency (PE/DVT, UTI, decubitus ulcer, pneumonia) associated with hip fractures. Informed consent was obtained and documented in chart. DESCRIPTION OF PROCEDURE: The patient was identified in the preoperative holding area. Dr. Shine's initials were placed in the operative extremity. Consent was deemed to be appropriate. The patient was taken to the operating room by the anesthesia staff with controlled airway and C-spine all times during the case. The patient underwent anesthesia and was placed on the OR table in the standard fashion. Care was taken to identify and pad all bony prominences. The patient was rolled in lateral decubitus position and the down leg and peroneal nerves were padded appropriately with blankets as well as the axillary roll. Beanbag was inflated and the patient was secured appropriately to the table in the standard fashion. The operative limb was provisionally draped in plastic draping and then scrubbed with pre-scrub wipes. The limb was then prepped and draped in standard sterile orthopedic fashion. A time-out was performed. Everybody in the room stopped. Consent was read aloud and surgical procedure commenced after ancef was given were confirmed and given and operative leg confirmed by team and initials. A curvilinear incision was made over the proximal buttock region. Sharp and blunt dissection was taken down to the level of fascia. Electrocautery was used to obtain hemostasis. The fascia was identified and opened in line with the incision. First wheatlander then Charnley retractors were placed to protect neurovascular structures, especially the sciatic nerve. The piriformis and short external rotators were tenotomized and tagged for later repair. Capsulotomy was performed following the piriformis, in line with the neck. Displaced femoral neck fracture was identified and hematoma was removed. The neck cut was freshened with an oscillating saw 1 cm above the lesser trochanter after protecting the trochanters and neurovascular structures. The bony fragments were removed. The head was removed from the acetabulum, and sized for a size 49. The acetabulum was copiously irrigated with normal saline. Attention was turned to the proximal femur preparation. (more content not included)... Normal [facility] POCT GLUCOSE METER UNSOLICIT ED RESULTSon 05-11-2022 Glucose [Mass/Vol] 116 mg/dL High 70-105 [facility] Comment on above: Result Comment: [facility] Performed By: #### L [id number] ####[facility] ([facility])[address] [place] [address] Prep for Procedureon 023 Prep for Procedure [id number] Fausot Yanes 1940 F Date Provider Department Center 05/11/2022 JOHN RASHID MP [facility] Family History Family history unknown: Yes Normal [facility] T4, FREEon 05-11-2022 THYROXINE (T4) FREE (NG/DL) IN SER/PLAS 1.38 ng/dL Normal 0.71-1.85 [facility] Comment on above: Performed By: #### L [id number] ####[facility] ([facility])[address] [place] [address] TSH3 REFLEX TO FT4on 023 THYROTROPIN (MIU/L) IN SER/PLAS BY DETECTION LIMIT <= 0.05 MIU/L 0.03 mIU/L Low 0.34-5.60 [facility] Comment on above: Performed By: #### L [id number] ####[facility] ([facility])[address] [place] [address] TYPE AND SCREENon 05-11-2022 AB SCREEN Negative Normal [facility] Comment on above: Performed By: #### L [id number] ####[facility], ABO group Nom (Bld) A Normal [facility] Comment on above: Performed By: #### L [id number] ####[facility], RH TYPE IN BLOOD Positive Normal [facility] Comment on above: Performed By: #### L [id number] ####[facility], URINALYSIS MICROSCOPIC WITH REFLEX CULTUREon 05-11-2022 CASTS IN URINE Normal [facility] Comment on above: Performed By: #### L [id number] ####[facility] ([facility])[address] [place] [address] CRYSTALS IN URINE Normal [facility] Comment on above: Performed By: #### L [id number] ####[facility] ([facility])[address] [place] [address] LEUKOCYTE ESTERASE PRESENCE IN URINE BY TEST STRIP Negative Normal Negative [facility] Comment on above: Performed By: #### L [id number] ####[facility] ([facility])[address] [place] [address] Order Comment: 0000 Performed By: #### L [id number] ####[facility] ([facility])[address] [place] [address] MUCUS (#/HPF) IN URINE SEDIMENT Occasional Normal None Seen, Occasional, Few [facility] Comment on above: Performed By: #### L [id number] ####[facility] ([facility])[address] [place] [address] NITRITE PRESENCE IN URINE Negative Normal Negative [facility] Comment on above: Performed By: #### L [id number] ####[facility] ([facility])[address] [place] [address] Order Comment: 0000 Performed By: #### L [id number] ####[facility] ([facility])[address] [place] [address] OTHER MICROSCOPIC ELEMENTS Normal [facility] Comment on above: Performed By: #### L [id number] ####[facility] ([facility])[address] [place] [address] RBC (#/HPF) IN URINE SEDIMENT 11-20 Abnormal None Seen [facility] Comment on above: Performed By: #### L [id number] ####[facility] ([facility])[address] [place] [address] SQUAMOUS EPITHELIAL CELLS (#/HPF) IN URINE SEDIMENT None Seen Normal None Seen, Occasional [facility] Comment on above: Performed By: #### L [id number] ####[facility] ([facility])[address] [place] [address] WBC (LEUKOCYTE) (#/HPF) IN URINE SEDIMENT 0-2 Abnormal None Seen [facility] Comment on above: Performed By: #### L [id number] ####[facility] ([facility])[address] [place] [address] URINALYSIS WITH REFLEX CULTU REon 05-11-2022 BILIRUBIN, TOTAL PRESENCE IN URINE Negative Normal Negative [facility] Comment on above: Order Comment: 0000 Performed By: #### L [id number] ####[facility] ([facility])[address] [place] [address] Clarity (U) Clear Normal Clear [facility] Comment on above: Order Comment: 0000 Performed By: #### L [id number] ####[facility] ([facility])[address] [place] [address] Color (U) Yellow Normal Yellow, Dark Yellow, Straw [facility] Comment on above: Order Comment: 0000 Performed By: #### L [id number] ####[facility] ([facility])[address] [place] [address] Glucose (U) [Mass/Vol] Negative Normal Negative [facility] Comment on above: Order Comment: 0000 Performed By: #### L [id number] ####[facility] ([facility])[address] [place] [address] HEMOGLOBIN PRESENCE IN URINE Small Abnormal Negative [facility] Comment on above: Order Comment: 0000 Performed By: #### L [id number] ####[facility] ([facility])[address] [place] [address] Ketones Ql (U) Negative Normal Negative [facility] Comment on above: Order Comment: 0000 Performed By: #### L [id number] ####[facility] ([facility])[address] [place] [address] pH (U) 7.5 [pH] Normal 5.0-8.0 [facility] Comment on above: Order Comment: 0000 Performed By: #### L [id number] ####[facility] ([facility])[address] [place] [address] Protein (U) [Mass/Vol] Negative Normal Negative [facility] Comment on above: Order Comment: 0000 Performed By: #### L [id number] ####[facility] ([facility])[address] [place] [address] Specific gravity (U) [Rel density] 1.015 Normal 1.015-1.020 [facility] Comment on above: Order Comment: 0000 Performed By: #### L [id number] ####[facility] ([facility])[address] [place] [facility] [address] UROBILINOGEN (EU/DL) IN URINE 0.2 EU/dL Normal Negative [facility] Comment on above: Order Comment: 0000 Performed By: #### L [id number] ####[facility] ([facility])[address] [place] [address] CBC AUTO DIFFon 05-10-2022 BASO # 0.0 103/ul Normal 0.0-0.1 [facility] Comment on above: Performed By: #### C BC ####[facility] [address] [place], [place] [address]Dr. Arnoldo Taylor Basophils/100 WBC (Bld) 0.1 % Critically low 0.2-2.0 [facility] Comment on above: Performed By: #### C BC ####[facility] [address] [place], [place] [address]Dr. Arnoldo Taylor EO # 0.2 103/ul Normal 0.0-0.7 [facility] Comment on above: Performed By: #### C BC ####[facility] [address] [place], [place] [address]Dr. Arnoldo Taylor Eosinophils/100 WBC (Bld) 1.7 % Normal 0.9-7.0 [facility] Comment on above: Performed By: #### C BC ####[facility] [address] [place], [place] [address]Dr. Arnoldo Taylor Erythrocyte distribution width (RBC) [Ratio] 13.9 % Normal 11.0-15.0 [facility] Comment on above: Performed By: #### C BC ####[facility] [address] [place] [address]Dr. Arnoldo Taylor Hematocrit (Bld) [Volume fraction] 34.1 % Critically low 36.0-48.0 [facility] Comment on above: Performed By: #### C BC ####[facility] [address] [place], [place] [address]Dr. Arnoldo Taylor Hemoglobin (Bld) [Mass/Vol] 11.8 g/dL Critically low 12.0-16.0 [facility] Comment on above: Performed By: #### C BC ####[facility] [address] [place], [place] [address]Dr. Arnoldo Taylor IG # 0.01 10e3/ul Normal 0.00-0.03 [facility] Comment on above: Performed By: #### C BC ####[facility] [address] [place], [place] [address]Dr. Arnoldo Taylor IG % 0.1 % Normal 0.0-0.5 [facility] Comment on above: Performed By: #### C BC ####[facility] [address] [place], [place] [address]Dr. Arnoldo Taylor LYMPH # 1.6 103/ul Normal 1.2-3.8 [facility] Comment on above: Performed By: #### C BC ####[facility] [address] [place], [place] [address]Dr. Arnoldo Taylor Lymphocytes/100 WBC (Bld) 17.9 % Critically low 20.5-60.0 [facility] Comment on above: Performed By: #### C BC ####[facility] [address] [place], [place] [address]Dr. Arnoldo Brandon MANUAL DIFF REQ NO Normal [facility] Comment on above: Performed By: #### C BC ####[facility] [address] [place], [place] [address]Dr. Arnoldo Brandon MCH (RBC) [Entitic mass] 29.9 pg Normal 26.7-34.0 [facility] Comment on above: Performed By: #### C BC ####[facility] [address] [place] [address]Dr. Arnoldo Talyor MCHC (RBC) [Mass/Vol] 34.6 g/dL Normal 29.9-35.2 [facility] Comment on above: Performed By: #### C BC ####[facility] [address] [place], [place] [address]Dr. Arnoldo Brandon MCV (RBC) [Entitic vol] 86.3 fL Normal 81.0-99.0 [facility] Comment on above: Performed By: #### C BC ####[facility] [address] [place], [place] [address]Dr. Arnoldo Taylor MONO # 0.9 103/ul Critically high 0.3-0.8 [facility] Comment on above: Performed By: #### C BC ####[facility] [address] [place], [place] [address]Dr. Lynettesujata Taylor Monocytes/100 WBC (Bld) 9.9 % Normal 1.7-12.0 [facility] Comment on above: Performed By: #### C BC ####[facility] [address] [place], [place] [address]Dr. Arnoldo Taylor NEUT # 6.2 103/ul Normal 1.4-6.5 [facility] Comment on above: Performed By: #### C BC ####[facility] [address] [place], [place] [address]Dr. Arnoldo Taylor Neutrophils/100 WBC (Bld) 70.3 % Normal 43.0-75.0 [facility] Comment on above: Performed By: #### C BC ####[facility] [address] [place], [place] [address]Dr. Arnoldo Taylor Platelet mean volume (Bld) [Entitic vol] 9.3 fL Critically low 9.5-13.5 [facility] Comment on above: Performed By: #### C BC ####[facility] [address] [place], [place] [address]Sp. Arnoldo Taylor PLT 134 103/ul Critically low 150-450 [facility] Comment on above: Performed By: #### C BC ####[facility] [address] [place], [place] [address]Sq. Arnoldo Taylor RBC 3.95 106/ul Critically low 4.20-5.40 [facility] Comment on above: Performed By: #### C BC ####[facility] [address] [place], [place] [address]Fz. Arnoldo Taylor WBC 8.8 103/ul Normal 4.0-11.0 [facility] Comment on above: Performed By: #### C BC ####[facility] [address] [place], [place] [address]Vz. Arnoldo Taylor CONSULTon 05-10-2022 CONSULT -- Attestation signed by Carlie Shine MD at 05/11/2022 3:35 PM I personally saw and examined the patient on the same date of service as resident/fellow Yosvany Ballard. I discussed the findings and therapeutic plan with the resident/fellow Yosvany Ballard. I agree with the documentation, except for any edits/updates below. Teaching Physician's Revisions: I agree with above. Patient with right hip pain after a fall from standing yesterday. She has a history of dementia. Awake and alert. Follows commands but not fully oriented. Right hip- skin is clean and dry. No open wounds or skin compromise. Motion deferred due to known fracture. Intact DF/PF/EHL. Full sensation distally. 2+ DP pulse. No gross deformity. X-rays and CT reviewed showing a minimally displaced valgus impacted right femoral neck fracture in the setting of osteoporosis. Given her dementia and fracture with mild displacement, will plan to proceed with right hip cemented hemiarthroplasty to hopefully prevent excessive collapse or reoperation risk with cannulated screw fixation. Consented. Marked. All questions answered and patient and her son wish to proceed. Reason For Consult hip fracture History Of Present Illness Myranda Yanes is a 81 y.o. female presenting as a transfer from an outside hospital for concern of right hip fracture. Due to her history of dementia, it is difficult to obtain a complete history from her and therefore, her son, who says that he is he MPOA, provided the majority of her history. He said that she fell last night and was taken to the ER. Of note, she had a left hip fracture in October that was treated with operative fixation and left tibia fracture two weeks later that was treated as well. On examination, she does note left leg pain. She denies back pain. Past Medical History She has no past medical history on file. Dementia. Surgical History She has a past surgical history that includes Hip surgery (Left). And left tibia IM nikhil. Family History Family History Family history unknown: Yes Social History She reports that she has never smoked. She has never used smokeless tobacco. She reports that she does not drink alcohol. No history on file for drug use. Allergies Sulfa (sulfonamide antibiotics), Adhesive, Adhesive tape-silicones, Ciprofloxacin, Oxycodone-acetaminophe n, and Sulfamethoxazole-trime thoprim Medications (Not in a hospital admission) No current facility-administered medications for this encounter. Last Recorded Vitals No data found. Physical Exam Gen: Alert, no acute distress. Respiratory: Breathing comfortably. Right upper extremity: Skin is intact along the right shoulder, elbow, wrist. Nontender to palpation along the shoulder elbow and wrist. Nontender with short arc range of motion of shoulder elbow and wrist. Left upper extremity: Skin is intact along the right shoulder, elbow, wrist. Nontender palpation along the shoulder elbow and wrist. Nontender with short arc range of motion of shoulder elbow and wrist. Right lower extremity: Skin is intact along the right groin, right thigh, right knee right leg and ankle. Positive logroll. Right knee and leg is tender palpation Fires ankle dorsiflexors and plantar flexors appropriately. Dorsalis pedis pulse intact. Left lower extremity: Skin is intact along the left hip, left thigh, left knee, left leg and ankle (there is a small wound along the posterior heel that is likely a pressure sore). Left leg is tender to palpation Fires ankle dorsiflexors and plantar flexors appropriately. Dorsalis pedis pulse intact. Relevant Results No visits with results within 1 Day(s) from this visit. Latest known visit with results is: Legacy Encounter on 11/06/2021 Component Date Value Ref Range Status Ventricular Rate 11/06/2021 81 BPM Final Atrial Rate 11/06/2021 81 BPM Final OK Interval 11/06/2021 162 ms Final QRS DURATION 11/06/2021 90 ms Final QT Interval 11/06/2021 414 ms Final QTC CALCULATION(BAZETT) 11/06/2021 480 ms Final P [place] 11/06/2021 80 degrees Final R-[place] 11/06/2021 61 degrees Final T Wave [place] 11/06/2021 69 degrees Final Diagnosis 11/06/2021 Final Value:Normal sinus rhythm Nonspecific ST abnormality Abnormal ECG No previous ECGs available Confirmed by Sheeba LR, SAPNA Thompson ([id number]) on 11/06/2021 9:12:48 AM Assessment/Plan Active Problems: There are no active Hospital Problems. 81 yo f with right femoral neck fracture that will benefit from operative fixation. -Keep NPO at midnight. -Will obtain consent from her son who he says is her Medical Power Of Dobie Worker, as the patient is unable to consent for herself due to her dementia. The son stated that he did her prior two surgical consents as well. -Appreci (more content not included)... Normal [facility] CT HEAD WO CONon 05-10-2022 CT HEAD WO CON Normal [facility] CT HIP RT WO CONon CT HIP RT WO CON Normal [facility] Covid-19 PCR (CVDTB)on SARS-CoV-2 (COVID-19) RNA JAMMIE+probe Ql (Unsp spec) Not detected Normal NOT DETECTED [facility] Comment on above: Result Comment: When diagnostic testing is negative, the possibility of a false negative should be considered inthe context of a patient's recent exposures and the presence of clinical signs and symptomsconsistent with SARS-CoV-2.This test is not yet approved or cleared by the [place] FDA. When there are no FDA-approved or cleared tests available, and other criteria are met, FDA can make tests available under an emergency access mechanism called an Emergency Use Authorization (EUA). The EUA for this test is supported by the Executive Sous Chef of Health and Human Service's declaration that circumstances exist to justify the emergency use of in vitro diagnostics for the detection and/or diagnosis of the virus that causes COVID-19. This EUA will remain in effect for the duration of the COVID-19 declaration justifying emergency of IVDs, unless it is terminated or revoked by the FDA (after which the test may no longer be used). Performed By: #### C [facility] ####[facility] [address] [place], [place] [address]Rh. Arnoldo Taylor EDNIlana 05-10-2022 EDKALE Pt arrives by squad this date as an ER transfer from [facility]. Pt is a resident of [facility], she was found on the floor at 1am 05/10/22 and taken to [facility]. Pt found to have a R femoral neck fracture and bruising to her forehead when found. Pt denies loss of consciousness and is on plavix. The son (Attila Yanes) is patients POA and his number is [phone]. The son is notified by ortho and proposal writer speaks with him as witness regarding consent and explanation of plan for upcoming procedure. Per son, he reports pt had dementia and since her last surgery she has drastically declined. Son states she most likely will not make any sense and is difficult to understand, he also states she is prone to UTIs which worsen her orientation Normal [facility] EDPROVon 05-10-2022 EDPROV HPI Chief Complaint Patient presents with Hip Pain R hip fracture Patient presenting as transfer from outside hospital for fall and hip fracture. Per report, she fell at her assisted and had right hip pain, she was found on x-ray and CT at outside facility to have a right femoral neck fracture with no other injuries. She is on Eliquis per her report. The patient has a history of dementia and is oriented to self only at baseline, she is unable to provide any history. She complains of pain in her left hip. Lorna Coma Scale Score: 15 Patient History Past Medical History: Diagnosis Date Anxiety COPD (chronic obstructive pulmonary disease) ([facility]) Dementia ([facility]) GERD (gastroesophageal reflux disease) Hypertension Past Surgical History: Procedure Laterality Date HIP SURGERY Left Family History Family history unknown: Yes Social History Tobacco Use Smoking status: Never Smokeless tobacco: Never Substance Use Topics Alcohol use: Never Drug use: Not on file Review of Systems Review of Systems Constitutional: Negative for fatigue and fever. HENT: Negative for congestion. Eyes: Negative for visual disturbance. Respiratory: Negative for shortness of breath. Cardiovascular: Negative for chest pain. Gastrointestinal: Negative for abdominal pain, nausea and vomiting. Genitourinary: Negative for dysuria. Musculoskeletal: Negative for back pain and neck pain. Hip pain Skin: Negative for wound. Neurological: Negative for headaches. Hematological: Bruises/bleeds easily. Physical Exam ED Triage Vitals Temp Pulse Resp BP -- -- -- -- SpO2 Temp src Heart Rate Source Patient Position -- -- -- -- BP Location FiO2 (%) -- -- Physical Exam Vitals and nursing note reviewed. Constitutional: General: She is not in acute distress. Appearance: She is not ill-appearing. HENT: Head: Normocephalic and atraumatic. Eyes: Extraocular Movements: Extraocular movements intact. Cardiovascular: Rate and Rhythm: Normal rate and regular rhythm. Pulses: Normal pulses. Heart sounds: No murmur heard. Pulmonary: Effort: No tachypnea or respiratory distress. Breath sounds: Normal breath sounds. Abdominal: Palpations: Abdomen is soft. Tenderness: There is no abdominal tenderness. Musculoskeletal: Cervical back: Normal range of motion and neck supple. Right lower leg: No edema. Left lower leg: No edema. Comments: Pelvis stable. There is no significant tenderness over the right hip. There is tenderness over the left greater trochanter and pain in the left hip with attempted external rotation of the leg. Skin: General: Skin is warm and dry. Neurological: General: No focal deficit present. Mental Status: She is alert. Mental status is at baseline. Psychiatric: Mood and Affect: Mood normal. Behavior: Behavior normal. Procedures ED Course & MDM ED Course as of 05/10/222224May 10, 20222010 Patient transferred from outside hospital for hip fracture. Lives at SNF, history of significant dementia, patient is a very poor historian, unsure what happened. Per note, she fell. She is on Eliquis. Work-up at outside hospital was sent here with CT reads but no images. CT brain did not show any bleeds. CT hip showed right femoral neck fracture. Because we do not have images in our charts here, orthopedic surgery is requesting repeat hip x-ray. She also has left hip pain with tenderness to palpation as well as pain with range of motion on my exam, therefore will obtain images of the left hip and femur as well as the right. If isolated hip fracture, she will likely need admission to hospitalist. [LM] 214 Orthopedic resident stating on AP view of pelvis, no obvious left hip fracture, he would recommend admission to medicine at this time to begin clearance process for surgery for right hip [LM] 2151 Internal medicine agreed to admission but requested trauma consultation due to fall and fracture on blood thinner; I will call Trauma team [LM] 2223 Spoke with surgery resident who will evaluate patient for trauma clearance [LM] ED Course User Index [LM] Keyonna Flaco Diagnoses as of 05/10/222224 Fall, initial encounter Closed fracture of neck of right femur, initial encounter ([facility]) Fall at home, sequela Medical Decision Making Dr. Ramsay performed a history and physical examination of Myranda Yanes and discussed her management with the resident. Dr. Ramsay agrees with the history, physical, assessment, and plan of care, with the following exceptions: None A 81 y.o female presents to the ED via transfer from [facility] for right hip fracture. Pt updated on plan of care. JESSICA MOORE Attestation: I performed a history and physical exam on this patient and discussed his or her management with the resident. I reviewed the resident's note and agree with the documented findings and plan of care with th (more content not included)... Normal [facility] PROF CHEM 8 (BAS METB)on Anion gap [Moles/Vol] 10.0 mmol/L Normal [facility] Comment on above: Performed By: #### B MP ####[facility] [address] [place] [address]Dr. Arnoldo Taylor Calcium [Mass/Vol] 9.1 mg/dL Normal 8.5-10.1 [facility] Comment on above: Performed By: #### B MP ####[facility] [address] [place] [address]Dr. Arnoldo Taylor Chloride [Moles/Vol] 106 mmol/L Normal 98-107 [facility] Comment on above: Performed By: #### B MP ####[facility] [address] [place] [address]Dr. Arnoldo Taylor CO2 [Moles/Vol] 28.1 mmol/L Normal 21.0-32.0 [facility] Comment on above: Performed By: #### B MP ####[facility] [address] [place], [place] [address]Dr. Arnoldo Taylor Creatinine [Mass/Vol] 0.92 mg/dL Normal 0.55-1.02 [facility] Comment on above: Performed By: #### B MP ####[facility] [address] [place], [place] [address]Dr. Arnoldo Taylor EGFR-AF BURKINAN >60 Normal >=60 [facility] Comment on above: Performed By: #### B MP ####[facility] [address] [place], [place] [address]Dr. Arnoldo Taylor EGFR-NON AF BURKINAN 59 mL/min/1.73m2 Critically low >=60 [facility] Comment on above: Performed By: #### B MP ####[facility] [address] [place], [place] [address]Dr. Arnoldo Taylor Glucose [Mass/Vol] 103 mg/dL Normal 74-106 [facility] Comment on above: Performed By: #### B MP ####[facility] [address] [place], [place] [address]Dr. Arnoldo Taylor Potassium [Moles/Vol] 4.1 mmol/L Normal 3.5-5.1 [facility] Comment on above: Performed By: #### B MP ####[facility] [address] [place], [place] [address]Xk. Arnoldo Taylor Sodium [Moles/Vol] 140 mmol/L Normal 136-145 [facility] Comment on above: Performed By: #### B MP ####[facility] [address] [place], [place] [address]Mg. Arnoldo Taylor Urea nitrogen [Mass/Vol] 22.0 mg/dL Critically high 7.0-18.0 [facility] Comment on above: Performed By: #### B MP ####[facility] [address] [place], [place] [address]Fv. Arnoldo Taylor Urea nitrogen/Creatinine [Mass ratio] 23.9 mg/mg Normal [facility] Comment on above: Performed By: #### B MP ####[facility] [address] [place], [place] [address]Vh. Arnoldo Taylor XR HIP RT 2 3V W PELVISon XR HIP RT 2 3V W PELVIS Normal [facility] XR KNEE RT 4V or >on 023 XR KNEE RT 4V or > Normal [facility] CT CHEST WO CONon 04-06-2022 CT CHEST WO CON Normal [facility] Office Visiton 03-30-2022 Follow-up visit [id number] Fausto Yanes 1940 Provider Department Center 03/30/2022 GEORGE HOOD MP [facility] Family History Family history unknown: Yes Level of Service:85353 [place] OFFICE/OUTPATIENT ESTABLISHED LOW MDM 20-29 MIN Reason for Visit and Comments: Follow-up [918315] Normal [facility] Orders Onlyon 03-30-2022 Orders Only [id number] Fausto Yanes 1940 Provider Department Center 03/30/2022 CHANDRA DEAL MP ORTHO [facility] Family History Family history unknown: Yes Normal [facility] Office Visiton 02-23-2022 Follow-up visit [id number] Fausto Yanes 1940 Date Provider Department Center 02/23/2022 GEORGE HOOD MP [facility] Family History Family history unknown: Yes Level of Service:63377 [place] POSTOP FOLLOW UP VISIT RELATED TO ORIGINAL PX Reason for Visit and Comments: Pain [136] Normal [facility] Orders Onlyon 02-23-2022 Orders Only [id number] Fausto Yanes 1940 F Date Provider Department Center 02/23/2022 792-CHANDRA LUCIO MP [facility] Family History Family history unknown: Yes Normal [facility] CBC AUTO DIFFon 02-01-2022 BASO # 0.0 103/ul Normal 0.0-0.1 [facility] Comment on above: Performed By: #### C BC ####[facility] [address] [place] [address]Dr. Arnoldo Taylor Basophils/100 WBC (Bld) 0.3 % Normal 0.2-2.0 [facility] Comment on above: Performed By: #### C BC ####[facility] [address] [place], [place] [address]Dr. Arnoldo Taylor EO # 0.5 103/ul Normal 0.0-0.7 [facility] Comment on above: Performed By: #### C BC ####[facility] [address] [place], [place] [address]Dr. Arnoldo Taylor Eosinophils/100 WBC (Bld) 6.5 % Normal 0.9-7.0 [facility] Comment on above: Performed By: #### C BC ####[facility] [address] [place] [address]Dr. Arnoldo Taylor Erythrocyte distribution width (RBC) [Ratio] 13.3 % Normal 11.0-15.0 [facility] Comment on above: Performed By: #### C BC ####[facility] [address] [place], [place] [address]Dr. Arnoldo Taylor Hematocrit (Bld) [Volume fraction] 36.2 % Normal 36.0-48.0 [facility] Comment on above: Performed By: #### C BC ####[facility] [address] [place], [place] [address]Dr. Arnoldo Taylor Hemoglobin (Bld) [Mass/Vol] 11.4 g/dL Critically low 12.0-16.0 [facility] Comment on above: Performed By: #### C BC ####[facility] [address] [place] [address]Dr. Arnoldo Taylor IG # 0.02 10e3/ul Normal 0.00-0.03 [facility] Comment on above: Performed By: #### C BC ####[facility] [address] [place] [address]Dr. Arnoldo Taylor IG % 0.3 % Normal 0.0-0.5 [facility] Comment on above: Performed By: #### C BC ####[facility] [address] [place], [place] [address]Dr. Arnoldo Taylor LYMPH # 3.0 103/ul Normal 1.2-3.8 [facility] Comment on above: Performed By: #### C BC ####[facility] [address] [place], [place] [address]Dr. Arnoldo Taylor Lymphocytes/100 WBC (Bld) 39.8 % Normal 20.5-60.0 [facility] Comment on above: Performed By: #### C BC ####[facility] [address] [place], [place] [address]Dr. Arnoldo Taylor MANUAL DIFF REQ NO Normal [facility] Comment on above: Performed By: #### C BC ####[facility] [address] [place], [place] [address]Dr. Arnoldo Taylor MCH (RBC) [Entitic mass] 29.3 pg Normal 26.7-34.0 [facility] Comment on above: Performed By: #### C BC ####[facility] Gh[address]mum[address] [place], [place] [address]Dr. Arnoldo Taylor MCHC (RBC) [Mass/Vol] 31.5 g/dL Normal 29.9-35.2 [facility] Comment on above: Performed By: #### C BC ####[facility] [address] [place], [place] [address]Dr. Arnoldo Taylor MCV (RBC) [Entitic vol] 93.1 fL Normal 81.0-99.0 [facility] Comment on above: Performed By: #### C BC ####[facility] [address] [place] [address]DrTye Taylor MONO # 0.8 103/ul Normal 0.3-0.8 [facility] Comment on above: Performed By: #### C BC ####[facility] [address] [place], [place] [address]Dr. Arnoldo Taylor Monocytes/100 WBC (Bld) 10.0 % Normal 1.7-12.0 [facility] Comment on above: Performed By: #### C BC ####[facility] [address] [place], [place] [address]Dr. Arnoldo Taylor NEUT # 3.3 103/ul Normal 1.4-6.5 [facility] Comment on above: Performed By: #### C BC ####[facility] [address] [place], [place] [address]Dr. Arnoldo Taylor Neutrophils/100 WBC (Bld) 43.1 % Normal 43.0-75.0 [facility] Comment on above: Performed By: #### C BC ####[facility] [address] [place], [place] [address]Dr. Arnoldo Taylor Platelet mean volume (Bld) [Entitic vol] 9.4 fL Critically low 9.5-13.5 [facility] Comment on above: Performed By: #### C BC ####[facility] [address] [place], [place] [address]Dr. Arnoldo Brandon PLT 185 103/ul Normal 150-450 [facility] Comment on above: Performed By: #### C BC ####[facility] [address] [place], [place] [address]DrTye Arnoldo Brandon RBC 3.89 106/ul Critically low 4.20-5.40 [facility] Comment on above: Performed By: #### C BC ####[facility] [address] [place], [place] [address]DrTye Arnoldo Taylor WBC 7.6 103/ul Normal 4.0-11.0 [facility] Comment on above: Performed By: #### C BC ####[facility] [address] [place] [address]Dr. Arnoldo Taylor POINT OF CARE GLUCOSEon 10-0 Glucose [Mass/Vol] 136 mg/dL Critically high 74-106 [facility] Comment on above: Performed By: #### P OCGLUC ####[facility] [address] [place] [address]Dr. Arnoldo Taylor PROF 14(COMP METB)on 022 Albumin [Mass/Vol] 2.4 g/dL Critically low 3.4-5.0 [facility] Comment on above: Performed By: #### C MP ####[facility] [address] [place] [address]Dr. Arnoldo Taylor Albumin/Globulin [Mass ratio] 0.6 {ratio} Normal [facility] Comment on above: Performed By: #### C MP ####[facility] [address] [place], [place] [address]Dr. Arnoldo Taylor ALP [Catalytic activity/Vol] 76 U/L Normal 46-116 [facility] Comment on above: Performed By: #### C MP ####[facility] [address] [place] [address]Dr. Arnoldo Taylor ALT [Catalytic activity/Vol] 12 U/L Critically low 14-59 [facility] Comment on above: Performed By: #### C MP ####[facility] [address] [place] [address]Dr. Arnoldo Taylor Anion gap [Moles/Vol] 10.5 mmol/L Normal [facility] Comment on above: Performed By: #### C MP ####[facility] [address] [place], [place] [address]Dr. Arnoldo Taylor AST [Catalytic activity/Vol] 16 U/L Normal 15-37 [facility] Comment on above: Performed By: #### C MP ####[facility] [address] [place], [place] [address]Dr. Arnoldo Taylor Bilirubin [Mass/Vol] 0.3 mg/dL Normal 0.2-1.0 [facility] Comment on above: Performed By: #### C MP ####[facility] [address] [place], [place] [address]Dr. Arnoldo Taylor Calcium [Mass/Vol] 8.5 mg/dL Normal 8.5-10.1 [facility] Comment on above: Performed By: #### C MP ####[facility] [address]tysp[address] [place], [place] [address]Dr. Arnoldo Taylor Chloride [Moles/Vol] 110 mmol/L Critically high 98-107 [facility] Comment on above: Performed By: #### C MP ####[facility] [address]jbjsba[address] [place], [place] [address]Dr. Arnoldo Taylor CO2 [Moles/Vol] 26.3 mmol/L Normal 21.0-32.0 [facility] Comment on above: Performed By: #### C MP ####[facility] [address]lonhhlri[address] [place], [place] [address]Dr. Arnoldo Taylor Creatinine [Mass/Vol] 0.82 mg/dL Normal 0.55-1.02 [facility] Comment on above: Performed By: #### C MP ####[facility] [address]qzwujox[address] [place], [place] [address]Dr. Arnoldo Brandon EGFR-AF BURKINAN >60 Normal >=60 [facility] Comment on above: Performed By: #### C MP ####[facility] [address] [place], [place] [address]Dr. Arnoldo Brandon EGFR-NON AF BURKINAN >60 Normal >=60 [facility] Comment on above: Performed By: #### C MP ####[facility] [address] [place], [place] [address]Dr. Lynettesujata Brandon Globulin (S) [Mass/Vol] 4.0 g/dL Normal [facility] Comment on above: Performed By: #### C MP ####[facility] [address]sxy[address]ivx[address] [place], [place] [address]Dr. Lynettesujata Brandon Glucose [Mass/Vol] 97 mg/dL Normal 74-106 [facility] Comment on above: Performed By: #### C MP ####[facility] [address] [place] [address]Dr. Arnoldo Taylor Potassium [Moles/Vol] 3.8 mmol/L Normal 3.5-5.1 [facility] Comment on above: Performed By: #### C MP ####[facility] [address] [place], [place] [address]Dr. Arnoldo Taylor Protein [Mass/Vol] 6.4 g/dL Normal 6.4-8.2 [facility] Comment on above: Performed By: #### C MP ####[facility] [address] [place], [place] [address]Dr. Arnoldo Taylor Sodium [Moles/Vol] 143 mmol/L Normal 136-145 [facility] Comment on above: Performed By: #### C MP ####[facility] Mrspxeqsdl[address] [place], [place] [address]Dr. Arnoldo Taylor Urea nitrogen [Mass/Vol] 13.0 mg/dL Normal 7.0-18.0 [facility] Comment on above: Performed By: #### C MP ####[facility] [address] [place], [place] [address]Dr. Arnoldo Taylor Urea nitrogen/Creatinine [Mass ratio] 15.9 mg/mg Normal [facility] Comment on above: Performed By: #### C MP ####[facility] [address]mfz[address] [place], [place] [address]Dr. Arnoldo Taylor CBC AUTO DIFFon 01-31-2022 BASO # 0.0 103/ul Normal 0.0-0.1 [facility] Comment on above: Performed By: #### C BC ####[facility] [address]clf[address]fs[address] [place], [place] [address]Dr. Arnoldo Taylor Basophils/100 WBC (Bld) 0.1 % Critically low 0.2-2.0 [facility] Comment on above: Performed By: #### C BC ####[facility] [address]qpbfehb[address] [place], [place] [address]Dr. Arnoldo Taylor EO # 0.5 103/ul Normal 0.0-0.7 [facility] Comment on above: Performed By: #### C BC ####[facility] [address] [place] [address]Dr. Arnoldo Taylor Eosinophils/100 WBC (Bld) 6.6 % Normal 0.9-7.0 [facility] Comment on above: Performed By: #### C BC ####[facility] [address]yrz[address] [place], [place] [address]Dr. Arnoldo Taylor Erythrocyte distribution width (RBC) [Ratio] 13.2 % Normal 11.0-15.0 [facility] Comment on above: Performed By: #### C BC ####[facility] [address]frta[address]az[address] [place], [place] [address]Dr. Arnoldo Taylor Hematocrit (Bld) [Volume fraction] 36.7 % Normal 36.0-48.0 [facility] Comment on above: Performed By: #### C BC ####[facility] [address]seq[address]zj[address] [place], [place] [address]Dr. Arnoldo Taylor Hemoglobin (Bld) [Mass/Vol] 11.9 g/dL Critically low 12.0-16.0 [facility] Comment on above: Performed By: #### C BC ####[facility] [address] [place], [place] [address]Dr. Arnoldo Taylor IG # 0.01 10e3/ul Normal 0.00-0.03 [facility] Comment on above: Performed By: #### C BC ####[facility] [address]gs[address] [place], [place] [address]Dr. Arnoldo Taylor IG % 0.1 % Normal 0.0-0.5 [facility] Comment on above: Performed By: #### C BC ####[facility] [address]wqn[address] [place], [place] [address]DrTye Arnoldo Taylor LYMPH # 2.8 103/ul Normal 1.2-3.8 [facility] Comment on above: Performed By: #### C BC ####[facility] [address]ks[address]fr[address] [place], [place] [address]Dr. Arnoldo Taylor Lymphocytes/100 WBC (Bld) 39.1 % Normal 20.5-60.0 [facility] Comment on above: Performed By: #### C BC ####[facility] [address] [place] [address]DrTye Taylor MANUAL DIFF REQ NO Normal [facility] Comment on above: Performed By: #### C BC ####[facility] [address] [place] [address]Dr. Arnoldo Taylor MCH (RBC) [Entitic mass] 30.1 pg Normal 26.7-34.0 [facility] Comment on above: Performed By: #### C BC ####[facility] [address] [place], [place] [address]Dr. Arnoldo Taylor MCHC (RBC) [Mass/Vol] 32.4 g/dL Normal 29.9-35.2 [facility] Comment on above: Performed By: #### C BC ####[facility] [address] [place], [place] [address]Dr. Arnoldo Taylor MCV (RBC) [Entitic vol] 92.9 fL Normal 81.0-99.0 [facility] Comment on above: Performed By: #### C BC ####[facility] Tohhzyztre[address] [place], [place] [address]Dr. Arnoldo Taylor MONO # 0.7 103/ul Normal 0.3-0.8 [facility] Comment on above: Performed By: #### C BC ####[facility] Tquhbukjpy[address] [place], [place] [address]Dr. Arnoldo Taylor Monocytes/100 WBC (Bld) 9.5 % Normal 1.7-12.0 [facility] Comment on above: Performed By: #### C BC ####[facility] Tethwswvqu[address] [place], [place] [address]DrTye Taylor NEUT # 3.2 103/ul Normal 1.4-6.5 [facility] Comment on above: Performed By: #### C BC ####[facility] Nmvdedlfbp06[address] [place], [place] [address]DrTye Taylor Neutrophils/100 WBC (Bld) 44.6 % Normal 43.0-75.0 [facility] Comment on above: Performed By: #### C BC ####[facility] Xkkmxshesq0[address] [place] [address]Dr. Arnoldo Taylor Platelet mean volume (Bld) [Entitic vol] 9.6 fL Normal 9.5-13.5 [facility] Comment on above: Performed By: #### C BC ####[facility] Rweinjfjlx3406 [place] [address]Dr. Arnoldo Brandon PLT 169 103/ul Normal 150-450 [facility] Comment on above: Performed By: #### C BC ####[facility] Cscooailoo7082 [place] [address]Dr. Arnoldo Brandon RBC 3.95 106/ul Critically low 4.20-5.40 [facility] Comment on above: Performed By: #### C BC ####[facility] Vigucuwwma0759 [place] [address]Dr. Arnoldo Brandon WBC 7.1 103/ul Normal 4.0-11.0 [facility] Comment on above: Performed By: #### C BC ####[facility] Vrxycgyglh6[address] [place], [place] [address]Dr. Arnoldo Taylor POINT OF CARE GLUCOSEon 10-0 -2021 Glucose [Mass/Vol] 111 mg/dL Critically high 74-106 [facility] Comment on above: Performed By: #### P OCGLUC ####[facility] Xjfpcvqrte1750 [place] [address]Dr. Arnoldo Taylor Glucose [Mass/Vol] 91 mg/dL Normal 74-106 [facility] Comment on above: Performed By: #### P OCGLUC ####[facility] Iogffnfbmn09[address] [place], [place] [address]Dr. Arnoldo Taylor Glucose [Mass/Vol] 114 mg/dL Critically high 74-106 [facility] Comment on above: Performed By: #### P OCGLUC ####[facility] Mvyhdxtxdu6[address] [place], [place] [address]DrTye Taylor PROF 14(COMP METB)on 022 Albumin [Mass/Vol] 2.5 g/dL Critically low 3.4-5.0 [facility] Comment on above: Performed By: #### C MP ####[facility] Mrgusporix4368 [place] [address]Dr. Arnoldo Taylor Albumin/Globulin [Mass ratio] 0.6 {ratio} Normal [facility] Comment on above: Performed By: #### C MP ####[facility] Qfjywcdvza[address] [place], [place] [address]Dr. Arnoldo Taylor ALP [Catalytic activity/Vol] 77 U/L Normal 46-116 [facility] Comment on above: Performed By: #### C MP ####[facility] Ehhpdyzynr220[address] [place], [place] [address]Dr. Arnoldo Taylor ALT [Catalytic activity/Vol] 14 U/L Normal 14-59 [facility] Comment on above: Performed By: #### C MP ####[facility] Dlncpzmufg499[address] [place], [place] [address]Dr. Arnoldo Taylor Anion gap [Moles/Vol] 10.1 mmol/L Normal [facility] Comment on above: Performed By: #### C MP ####[facility] Wblqrbaamt25[address] [place], [place] [address]Dr. Arnoldo Taylor AST [Catalytic activity/Vol] 27 U/L Normal 15-37 [facility] Comment on above: Performed By: #### C MP ####[facility] Oyhdnldrfx44[address] [place], [place] [address]Dr. Arnoldo Taylor Bilirubin [Mass/Vol] 0.4 mg/dL Normal 0.2-1.0 [facility] Comment on above: Performed By: #### C MP ####[facility] Reljukkgjw3367[address] [place], [place] [address]Dr. Arnoldo Taylor Calcium [Mass/Vol] 8.6 mg/dL Normal 8.5-10.1 [facility] Comment on above: Performed By: #### C MP ####[facility] Dqqvvissmz067[address] [place], [place] [address]Dr. Arnoldo Taylor Chloride [Moles/Vol] 108 mmol/L Critically high 98-107 [facility] Comment on above: Performed By: #### C MP ####[facility] Pwloqhsgzh1656 [place] [address]Dr. Arnoldo Taylor CO2 [Moles/Vol] 25.7 mmol/L Normal 21.0-32.0 [facility] Comment on above: Performed By: #### C MP ####[facility] Leqjddiipf3120 [place] [address]Dr. Arnoldo Taylor Creatinine [Mass/Vol] 0.81 mg/dL Normal 0.55-1.02 [facility] Comment on above: Performed By: #### C MP ####[facility] Gfkitbqecq8670 [place] [address]Dr. Arnoldo Taylor EGFR-AF BURKINAN >60 Normal >=60 [facility] Comment on above: Performed By: #### C MP ####[facility] Lxzceauess4185 [place] [address]Dr. Arnoldo Taylor EGFR-NON AF BURKINAN >60 Normal >=60 [facility] Comment on above: Performed By: #### C MP ####[facility] Rguqqwsank4737 [place] [address]Dr. Arnoldo Talyor Globulin (S) [Mass/Vol] 4.2 g/dL Normal [facility] Comment on above: Performed By: #### C MP ####[facility] Vtbwthdilr8692 [place] [address]Dr. Arnoldo Brandon Glucose [Mass/Vol] 90 mg/dL Normal 74-106 [facility] Comment on above: Performed By: #### C MP ####[facility] Tborjlareh8100 [place] [address]Dr. Arnoldo Taylor Potassium [Moles/Vol] 3.8 mmol/L Normal 3.5-5.1 [facility] Comment on above: Performed By: #### C MP ####[facility] Epluhqelfa8185 [place] [address]Dr. Arnoldo Brandon Protein [Mass/Vol] 6.7 g/dL Normal 6.4-8.2 [facility] Comment on above: Performed By: #### C MP ####[facility] Mzcfllkqoy57[address] [place], [place] [address]Dr. Arnoldo Brandon Sodium [Moles/Vol] 140 mmol/L Normal 136-145 [facility] Comment on above: Performed By: #### C MP ####[facility] Ksemdvbrer65[address] [place], [place] [address]Dr. Arnoldo Brandon Urea nitrogen [Mass/Vol] 10.0 mg/dL Normal 7.0-18.0 [facility] Comment on above: Performed By: #### C MP ####[facility] Tpctaludjo9[address] [place], [place] [address]Dr. Arnoldo Taylor Urea nitrogen/Creatinine [Mass ratio] 12.3 mg/mg Normal [facility] Comment on above: Performed By: #### C MP ####[facility] Huqtpvjgav144[address] [place], [place] [address]Dr. Arnoldo Taylor CBC AUTO DIFFon 01-30-2022 BASO # 0.0 103/ul Normal 0.0-0.1 [facility] Comment on above: Performed By: #### C BC ####[facility] Wvaecjtrkz14[address] [place], [place] [address]Dr. Arnoldo Taylor Basophils/100 WBC (Bld) 0.1 % Critically low 0.2-2.0 [facility] Comment on above: Performed By: #### C BC ####[facility] Kzdrfpiicw15[address] [place], [place] [address]Dr. Lynettesujata Brandon EO # 0.6 103/ul Normal 0.0-0.7 [facility] Comment on above: Performed By: #### C BC ####[facility] Ylfvrtdvql631[address] [place], [place] [address]Dr. Arnoldo Taylor Eosinophils/100 WBC (Bld) 8.8 % Critically high 0.9-7.0 [facility] Comment on above: Performed By: #### C BC ####[facility] Vuiwuyfzuv6826[address] [place], [place] [address]Dr. Arnoldo Taylor Erythrocyte distribution width (RBC) [Ratio] 13.2 % Normal 11.0-15.0 [facility] Comment on above: Performed By: #### C BC ####[facility] Jjxiouioon8208 [place] [address]Dr. Arnoldo Taylor Hematocrit (Bld) [Volume fraction] 34.7 % Critically low 36.0-48.0 [facility] Comment on above: Performed By: #### C BC ####[facility] Lymmshufpc8869[address] [place], [place] [address]Dr. Arnoldo Taylor Hemoglobin (Bld) [Mass/Vol] 11.2 g/dL Critically low 12.0-16.0 [facility] Comment on above: Performed By: #### C BC ####[facility] Xfnubkloqi668[address] [place], [place] [address]Dr. Lynettesujata Taylor IG # 0.02 10e3/ul Normal 0.00-0.03 [facility] Comment on above: Performed By: #### C BC ####[facility] Qjrsnuvgat5594[address] [place], [place] [address]Dr. Arnoldo Brandon IG % 0.3 % Normal 0.0-0.5 [facility] Comment on above: Performed By: #### C BC ####[facility] Itatdrafzk5586[address] [place], [place] [address]Dr. Arnoldo Brandon LYMPH # 2.0 103/ul Normal 1.2-3.8 [facility] Comment on above: Performed By: #### C BC ####[facility] Zrkqpjgvwh3313[address] [place], [place] [address]Dr. Arnoldo Brandon Lymphocytes/100 WBC (Bld) 28.4 % Normal 20.5-60.0 [facility] Comment on above: Performed By: #### C BC ####[facility] Wlyfdrxzut8[address] [place], [place] [address]Dr. Lynettesujata Taylor MANUAL DIFF REQ NO Normal [facility] Comment on above: Performed By: #### C BC ####[facility] Bbgbijagjy[address] [place], [place] [address]Dr. Lynettesujata Taylor MCH (RBC) [Entitic mass] 30.0 pg Normal 26.7-34.0 [facility] Comment on above: Performed By: #### C BC ####[facility] Oybybktahp3197 [place] [address]DrTye Taylor MCHC (RBC) [Mass/Vol] 32.3 g/dL Normal 29.9-35.2 [facility] Comment on above: Performed By: #### C BC ####[facility] Votthhvszk3186[address] [place], [place] [address]DrTye Taylor MCV (RBC) [Entitic vol] 93.0 fL Normal 81.0-99.0 [facility] Comment on above: Performed By: #### C BC ####[facility] Dxcdxzpqlg9904[address] [place], [place] [address]DrTye Taylor MONO # 0.8 103/ul Normal 0.3-0.8 [facility] Comment on above: Performed By: #### C BC ####[facility] Wtmucedruw01[address] [place], [place] [address]DrTye Taylor Monocytes/100 WBC (Bld) 11.0 % Normal 1.7-12.0 [facility] Comment on above: Performed By: #### C BC ####[facility] Xlnkttorqp766[address] [place], [place] [address]DrTye Taylor NEUT # 3.6 103/ul Normal 1.4-6.5 [facility] Comment on above: Performed By: #### C BC ####[facility] Nhalpbbqen60[address] [place], [place] [address]DrTye Taylor Neutrophils/100 WBC (Bld) 51.4 % Normal 43.0-75.0 [facility] Comment on above: Performed By: #### C BC ####[facility] Qwcqejrsly46[address] [place], [place] [address]DrTye Taylor Platelet mean volume (Bld) [Entitic vol] 9.2 fL Critically low 9.5-13.5 [facility] Comment on above: Performed By: #### C BC ####[facility] Ffbgwtoaek139[address] [place], [place] [address]Dr. Arnoldo Taylor PLT 150 103/ul Normal 150-450 [facility] Comment on above: Performed By: #### C BC ####[facility] Ujanpojtdu4404 [place] [address]Dr. Arnoldo Taylor RBC 3.73 106/ul Critically low 4.20-5.40 [facility] Comment on above: Performed By: #### C BC ####[facility] Nmkrbptbtv4368 [place] [address]Dr. Arnoldo Taylor WBC 7.0 103/ul Normal 4.0-11.0 [facility] Comment on above: Performed By: #### C BC ####[facility] Rbxesoyjin1886 [place] [address]Dr. Arnoldo Brandon POINT OF CARE GLUCOSEon 10-0 Glucose [Mass/Vol] 90 mg/dL Normal 74-106 [facility] Comment on above: Performed By: #### P OCGLUC ####[facility] Zymyvmiquu3670 [place] [address]Dr. Arnoldo Taylor Glucose [Mass/Vol] 137 mg/dL Critically high 74-106 [facility] Comment on above: Performed By: #### P OCGLUC ####[facility] Bwhxzppqqv75[address] [place], [place] [address]Dr. Arnoldo Taylor Glucose [Mass/Vol] 91 mg/dL Normal 74-106 [facility] Comment on above: Performed By: #### P OCGLUC ####[facility] Fqvyhfrkhg2063[address] [place], [place] [address]Dr. Arnoldo Brandon PROF 14(COMP METB)on 022 Albumin [Mass/Vol] 2.5 g/dL Critically low 3.4-5.0 [facility] Comment on above: Performed By: #### C MP ####[facility] Ofnwaqwiyj0916[address] [place], [place] [address]Dr. Arnoldo Taylor Albumin/Globulin [Mass ratio] 0.7 {ratio} Normal [facility] Comment on above: Performed By: #### C MP ####[facility] Zpputmufnq4828 [place] [address]Dr. Arnoldo Taylor ALP [Catalytic activity/Vol] 83 U/L Normal 46-116 [facility] Comment on above: Performed By: #### C MP ####[facility] Euixzqohjj3460 [place] [address]Dr. Arnoldo Taylor ALT [Catalytic activity/Vol] 14 U/L Normal 14-59 [facility] Comment on above: Performed By: #### C MP ####[facility] Ipfawtclbo2516 [place] [address]Dr. Arnoldo Brandon Anion gap [Moles/Vol] 11.3 mmol/L Normal [facility] Comment on above: Performed By: #### C MP ####[facility] Qeglemyctt3239[address] [place], [place] [address]Dr. Arnoldo Brandon AST [Catalytic activity/Vol] 16 U/L Normal 15-37 [facility] Comment on above: Performed By: #### C MP ####[facility] Gnkpfjxzex6[address] [place], [place] [address]Dr. Arnoldo Brandon Bilirubin [Mass/Vol] 0.3 mg/dL Normal 0.2-1.0 [facility] Comment on above: Performed By: #### C MP ####[facility] Afkghkhuug4932[address] [place], [place] [address]Dr. Arnoldo Brandon Calcium [Mass/Vol] 8.5 mg/dL Normal 8.5-10.1 [facility] Comment on above: Performed By: #### C MP ####[facility] Uzjzpilloj0404 [place] [address]Dr. Arnoldo Brandon Chloride [Moles/Vol] 110 mmol/L Critically high 98-107 [facility] Comment on above: Performed By: #### C MP ####[facility] Jayiemlnnk[address] [place], [place] [address]Dr. Arnoldo Taylor CO2 [Moles/Vol] 25.8 mmol/L Normal 21.0-32.0 [facility] Comment on above: Performed By: #### C MP ####[facility] Vpnnviwaik9513 [place] [address]Dr. [place] Taylor Creatinine [Mass/Vol] 0.83 mg/dL Normal 0.55-1.02 [facility] Comment on above: Performed By: #### C MP ####[facility] Qlfpioijff9530 [place] [id number]. Arnoldo Taylor EGFR-AF BURKINAN >60 Normal >=60 [facility] Comment on above: Performed By: #### C MP ####[facility] Schiodpuaf3146 [place] [id number]. Arnoldo Brandon EGFR-NON AF BURKINAN >60 Normal >=60 [facility] Comment on above: Performed By: #### C MP ####[facility] Fmqhyojwjt9352 [place] [id number]. Arnoldo Brandon Globulin (S) [Mass/Vol] 3.8 g/dL Normal [facility] Comment on above: Performed By: #### C MP ####[facility] Hwsyyywrru8563 [place] [address]Dr. Arnoldo Brandon Glucose [Mass/Vol] 98 mg/dL Normal 74-106 [facility] Comment on above: Performed By: #### C MP ####[facility] Qxojfchacr9030 [place] [address]Dr. Arnoldo Brandon Potassium [Moles/Vol] 3.1 mmol/L Critically low 3.5-5.1 [facility] Comment on above: Performed By: #### C MP ####[facility] Wobwxxxbnk8471 [place] [id number]. Arnoldo Brandon Protein [Mass/Vol] 6.3 g/dL Critically low 6.4-8.2 [facility] Comment on above: Performed By: #### C MP ####[facility] Vdidomxdbo5112 [place] [address]Dr. Arnoldo Brandon Sodium [Moles/Vol] 144 mmol/L Normal 136-145 [facility] Comment on above: Performed By: #### C MP ####[facility] Ytgfpvdtoy8984 [place] [address]Dr. Arnoldo Brandon Urea nitrogen [Mass/Vol] 8.0 mg/dL Normal 7.0-18.0 [facility] Comment on above: Performed By: #### C MP ####[facility] Nxinjeoblc84[address] [place], [place] [address]Dr. Arnoldo Taylor Urea nitrogen/Creatinine [Mass ratio] 9.6 mg/mg Normal [facility] Comment on above: Performed By: #### C MP ####[facility] Okywtwzvfy8127[address] [place], [place] [address]Dr. Arnoldo Taylor CBC AUTO DIFFon 01-29-2022 BASO # 0.0 103/ul Normal 0.0-0.1 [facility] Comment on above: Performed By: #### C BC ####[facility] Eastwgfzlj257[address] [place], [place] [address]Dr. Arnoldo Taylor Basophils/100 WBC (Bld) 0.2 % Normal 0.2-2.0 [facility] Comment on above: Performed By: #### C BC ####[facility] Mjhhhfrflz5865[address] [place], [place] [address]DrTye Taylor EO # 0.6 103/ul Normal 0.0-0.7 [facility] Comment on above: Performed By: #### C BC ####[facility] Heyblbpsjq9717[address] [place], [place] [address]Dr. Arnoldo Taylor Eosinophils/100 WBC (Bld) 9.9 % Critically high 0.9-7.0 [facility] Comment on above: Performed By: #### C BC ####[facility] Vndqvurijd4134[address] [place], [place] [address]Dr. Arnoldo Taylor Erythrocyte distribution width (RBC) [Ratio] 13.7 % Normal 11.0-15.0 [facility] Comment on above: Performed By: #### C BC ####[facility] Ajjcicqpbq10[address] [place], [place] [address]DrTye Taylor Hematocrit (Bld) [Volume fraction] 32.0 % Critically low 36.0-48.0 [facility] Comment on above: Performed By: #### C BC ####[facility] Omxekfjesw6612[address] [place], [place] [address]Dr. Arnoldo Taylor Hemoglobin (Bld) [Mass/Vol] 10.2 g/dL Critically low 12.0-16.0 [facility] Comment on above: Performed By: #### C BC ####[facility] Ytgxxvsvme5516 [place] [address]Dr. Arnoldo Taylor IG # 0.03 10e3/ul Normal 0.00-0.03 [facility] Comment on above: Performed By: #### C BC ####[facility] Dqhxeetbyq1070 [place] [address]Dr. Arnoldo Taylor IG % 0.5 % Normal 0.0-0.5 [facility] Comment on above: Performed By: #### C BC ####[facility] Pcugximwdh3138[address] [place], [place] [address]DrTye Taylor LYMPH # 2.0 103/ul Normal 1.2-3.8 [facility] Comment on above: Performed By: #### C BC ####[facility] Zkoutjbhsm6975[address] [place], [place] [address]Dr. Arnoldo Taylor Lymphocytes/100 WBC (Bld) 32.9 % Normal 20.5-60.0 [facility] Comment on above: Performed By: #### C BC ####[facility] Ruoxkeovnz8654[address] [place], [place] [address]DrTye Taylor MANUAL DIFF REQ NO Normal [facility] Comment on above: Performed By: #### C BC ####[facility] Nfiljkovau8413[address] [place], [place] [address]Dr. Arnoldo Taylor MCH (RBC) [Entitic mass] 30.2 pg Normal 26.7-34.0 [facility] Comment on above: Performed By: #### C BC ####[facility] Ygbvgmnyaa9718[address] [place], [place] [address]Dr. Arnoldo Taylor MCHC (RBC) [Mass/Vol] 31.9 g/dL Normal 29.9-35.2 [facility] Comment on above: Performed By: #### C BC ####[facility] Ibiqahojsi6074[address] [place], [place] [address]Dr. Arnoldo Taylor MCV (RBC) [Entitic vol] 94.7 fL Normal 81.0-99.0 [facility] Comment on above: Performed By: #### C BC ####[facility] Moktfkhvht3142 [place] [address]DrTye Arnoldo Taylor MONO # 0.7 103/ul Normal 0.3-0.8 [facility] Comment on above: Performed By: #### C BC ####[facility] Gmpighzoqp7041 [place] [address]DrTye Taylor Monocytes/100 WBC (Bld) 11.7 % Normal 1.7-12.0 [facility] Comment on above: Performed By: #### C BC ####[facility] Yoyvcrtvie2768[address] [place], [place] [address]Dr. Arnoldo Taylor NEUT # 2.8 103/ul Normal 1.4-6.5 [facility] Comment on above: Performed By: #### C BC ####[facility] Mpzatxkwhh[address] [place], [place] [address]Dr. Arnoldo Taylor Neutrophils/100 WBC (Bld) 44.8 % Normal 43.0-75.0 [facility] Comment on above: Performed By: #### C BC ####[facility] Bohtxghira745[address] [place], [place] [address]Dr. Lynettesujata Taylor Platelet mean volume (Bld) [Entitic vol] 9.3 fL Critically low 9.5-13.5 [facility] Comment on above: Performed By: #### C BC ####[facility] Xeerstwgnm0418 [place] [address]Dr. Arnoldo Taylor PLT 130 103/ul Critically low 150-450 [facility] Comment on above: Performed By: #### C BC ####[facility] Dyzlhpkast6[address] [place], [place] [address]Dr. Arnoldo Taylor RBC 3.38 106/ul Critically low 4.20-5.40 [facility] Comment on above: Performed By: #### C BC ####[facility] Zariouunfr149[address] [place], [place] [address]Dr. Arnoldo Taylor WBC 6.2 103/ul Normal 4.0-11.0 [facility] Comment on above: Performed By: #### C BC ####[facility] Ysewmwgkoa6725 [place] [address]Dr. Arnoldo Taylor POINT OF CARE GLUCOSEon 01-02 Glucose [Mass/Vol] 97 mg/dL Normal 74-106 [facility] Comment on above: Performed By: #### P OCGLUC ####[facility] Asrwnstyrd8571 [place] [address]Dr. Arnoldo Taylor Glucose [Mass/Vol] 95 mg/dL Normal 74-106 [facility] Comment on above: Performed By: #### P OCGLUC ####[facility] Gfvmgaommv97[address] [place], [place] [address]Dr. Arnoldo Taylor Glucose [Mass/Vol] 94 mg/dL Normal 74-106 [facility] Comment on above: Performed By: #### P OCGLUC ####[facility] Sjkdggcckv17[address] [place], [place] [address]Dr. Arnoldo Taylor PROF 14(COMP METB)on 022 Albumin [Mass/Vol] 2.4 g/dL Critically low 3.4-5.0 [facility] Comment on above: Performed By: #### C MP ####[facility] Vnltpbfclc1509 [place] [address]Dr. Arnoldo Taylor Albumin/Globulin [Mass ratio] 0.6 {ratio} Normal [facility] Comment on above: Performed By: #### C MP ####[facility] Xjzocuufaz3106 [place] [address]Dr. Arnoldo Taylor ALP [Catalytic activity/Vol] 79 U/L Normal 46-116 [facility] Comment on above: Performed By: #### C MP ####[facility] Gaakmsrmhd0657[address] [place], [place] [address]Dr. Arnoldo Taylor ALT [Catalytic activity/Vol] 14 U/L Normal 14-59 [facility] Comment on above: Performed By: #### C MP ####[facility] Srdubtdtra40[address] [place], [place] [address]Dr. Arnoldo Taylor Anion gap [Moles/Vol] 13.2 mmol/L Normal [facility] Comment on above: Performed By: #### C MP ####[facility] Qncubjxcmo2684 [place] [address]Dr. Arnoldo Brandon AST [Catalytic activity/Vol] 16 U/L Normal 15-37 [facility] Comment on above: Performed By: #### C MP ####[facility] Luhbdvluxe6[address] [place], [place] [address]Dr. Arnoldo Brandon Bilirubin [Mass/Vol] 0.3 mg/dL Normal 0.2-1.0 [facility] Comment on above: Performed By: #### C MP ####[facility] Mbyrqkdmxf00[address] [place], [place] [address]Dr. Arnoldo Brandon Calcium [Mass/Vol] 8.6 mg/dL Normal 8.5-10.1 [facility] Comment on above: Performed By: #### C MP ####[facility] Iojolqmqcg8675[address] [place], [place] [address]Dr. Arnoldo Taylor Chloride [Moles/Vol] 113 mmol/L Critically high 98-107 [facility] Comment on above: Performed By: #### C MP ####[facility] Owpsxxbsnj8676[address] [place], [place] [address]Dr. Arnoldo Brandon CO2 [Moles/Vol] 22.2 mmol/L Normal 21.0-32.0 [facility] Comment on above: Performed By: #### C MP ####[facility] Hsxxchkgho[address] [place], [place] [address]Dr. Lynettesujata Taylor Creatinine [Mass/Vol] 0.86 mg/dL Normal 0.55-1.02 [facility] Comment on above: Performed By: #### C MP ####[facility] Xepgqwrcgn89[address] [place], [place] [address]Dr. Arnoldo Taylor EGFR-AF BURKINAN >60 Normal >=60 [facility] Comment on above: Performed By: #### C MP ####[facility] Eqpoqdlncu5[address] [place], [place] [address]Dr. Arnoldo Taylor EGFR-NON AF BURKINAN >60 Normal >=60 [facility] Comment on above: Performed By: #### C MP ####[facility] Gdnmwxyymw[address] [place] [address]Dr. Arnoldo Taylor Globulin (S) [Mass/Vol] 3.8 g/dL Normal [facility] Comment on above: Performed By: #### C MP ####[facility] Wpurexobwn8[address] [place] [id number]. Arnoldo Taylor Glucose [Mass/Vol] 97 mg/dL Normal 74-106 [facility] Comment on above: Performed By: #### C MP ####[facility] Wuqmgcqori14[address] [place] [address]Dr. Arnoldo Taylor Potassium [Moles/Vol] 3.4 mmol/L Critically low 3.5-5.1 [facility] Comment on above: Performed By: #### C MP ####[facility] Ioleigcwox[address] [place], [place] [address]Dr. Arnoldo Taylor Protein [Mass/Vol] 6.2 g/dL Critically low 6.4-8.2 [facility] Comment on above: Performed By: #### C MP ####[facility] Wyipfkrclp[address] [place], [place] [address]Dr. Arnoldo Taylor Sodium [Moles/Vol] 145 mmol/L Normal 136-145 [facility] Comment on above: Performed By: #### C MP ####[facility] Okyzdbtbol45[address] [place] [address]Dr. Arnoldo Taylor Urea nitrogen [Mass/Vol] 8.0 mg/dL Normal 7.0-18.0 [facility] Comment on above: Performed By: #### C MP ####[facility] Gubzaszsuo[address] [place], [place] [address]Dr. Arnoldo Taylor Urea nitrogen/Creatinine [Mass ratio] 9.3 mg/mg Normal [facility] Comment on above: Performed By: #### C MP ####[facility] Jnkpijfhsp[address] [place], [place] [address]Dr. Lynettesujata Brandon T4 LABCORPon 01-29-2022 T4 [Mass/Vol] 8.5 ug/dL Normal 4.5-12.0 [facility] Comment on above: Performed By: #### T 4LC ####[facility] Wefyzjmooa[address] [place] [address]Dr. Arnoldo Taylor CARDIAC DIANA 3-6on 2 CK [Catalytic activity/Vol] 102 U/L Normal 26-192 [facility] Comment on above: Performed By: #### C MREP ####[facility] Dbvrznupxc1373 [place] [address]Dr. Arnoldo Taylor CK.MB [Mass/Vol] 2.04 ng/mL Normal <=3.60 [facility] Comment on above: Performed By: #### C MREP ####[facility] Hakjmjeztp38[address] [place] [address]Dr. Arnoldo Taylor HSTROP 53.7 pg/mL Critically high 4.0-51.3 [facility] Comment on above: Result Comment: CUT- OFF POINTS HAVE BEEN ESTABLISHED BASED ON THE FOURTH UNIVERSAL DEFINITIONS OF MYOCARDIALINFARCTION. THE UPPER REFERENCE LIMIT (URL) OF TROPONIN, DEFINED THE 99TH PERCENTILE OFcTnI DISTRIBUTION IN A REFERENCE POPULATION, HAS BEEN CONFIRMED THE DECISION THRESHOLDFOR SC DIAGNOSIS. Performed By: #### C MREP ####[facility] Bjhejtbzcj27[address] [place] [address]Dr. Arnoldo Taylor CK [Catalytic activity/Vol] 107 U/L Normal 26-192 [facility] Comment on above: Performed By: #### C MREP ####[facility] Hwxzqhczwm6943 [place] [address]Dr. Arnoldo Taylor CK.MB [Mass/Vol] 2.23 ng/mL Normal <=3.60 [facility] Comment on above: Performed By: #### C MREP ####[facility] Jhlfvtqhyb[address] [place], [place] [address]Dr. Arnoldo Taylor HSTROP 66.7 pg/mL Critically high 4.0-51.3 [facility] Comment on above: Result Comment: CUT- OFF POINTS HAVE BEEN ESTABLISHED BASED ON THE FOURTH UNIVERSAL DEFINITIONS OF MYOCARDIALINFARCTION. THE UPPER REFERENCE LIMIT (URL) OF TROPONIN, DEFINED THE 99TH PERCENTILE OFcTnI DISTRIBUTION IN A REFERENCE POPULATION, HAS BEEN CONFIRMED THE DECISION THRESHOLDFOR SC DIAGNOSIS. Performed By: #### C MREP ####[facility] Gdhuvihodr7[address] [place] [address]Dr. Arnoldo Taylor CBC AUTO DIFFon 01-28-2022 BASO # 0.0 103/ul Normal 0.0-0.1 [facility] Comment on above: Performed By: #### C BC ####[facility] Okrdnnrjtr70[address] [place], [place] [address]Dr. Arnoldo Taylor Basophils/100 WBC (Bld) 0.1 % Critically low 0.2-2.0 [facility] Comment on above: Performed By: #### C BC ####[facility] Mlcbckctyf84[address] [place], [place] [address]Dr. Arnoldo Taylor EO # 0.5 103/ul Normal 0.0-0.7 [facility] Comment on above: Performed By: #### C BC ####[facility] Emjkwgkplv684[address] [place], [place] [address]Dr. Arnoldo Taylor Eosinophils/100 WBC (Bld) 5.9 % Normal 0.9-7.0 [facility] Comment on above: Performed By: #### C BC ####[facility] Nfxuokfnga5[address] [place], [place] [address]Dr. Arnoldo Taylor Erythrocyte distribution width (RBC) [Ratio] 13.8 % Normal 11.0-15.0 [facility] Comment on above: Performed By: #### C BC ####[facility] Seolznofor59[address] [place], [place] [address]Dr. Arnoldo Taylor Hematocrit (Bld) [Volume fraction] 30.4 % Critically low 36.0-48.0 [facility] Comment on above: Performed By: #### C BC ####[facility] Hlinjgiwxo5[address] [place], [place] [address]Dr. Arnoldo Taylor Hemoglobin (Bld) [Mass/Vol] 9.8 g/dL Critically low 12.0-16.0 [facility] Comment on above: Performed By: #### C BC ####[facility] Sgmifmiays9[address] [place] [phone]. Arnoldo Taylor IG # 0.01 10e3/ul Normal 0.00-0.03 [facility] Comment on above: Performed By: #### C BC ####[facility] Uiggitqpql1238 [place] [phone]. Arnoldo Taylor IG % 0.1 % Normal 0.0-0.5 [facility] Comment on above: Performed By: #### C BC ####[facility] Swjaqmbwlh47[address] [place] [address]Dr. Arnoldo Brandon LYMPH # 3.4 103/ul Normal 1.2-3.8 [facility] Comment on above: Performed By: #### C BC ####[facility] Onfpcccnqi0921 [place] [address]Dr. Arnoldo Taylor Lymphocytes/100 WBC (Bld) 44.4 % Normal 20.5-60.0 [facility] Comment on above: Performed By: #### C BC ####[facility] Pazwanzrti8[address] [place] [address]Dr. Lynettesujata Taylor MANUAL DIFF REQ NO Normal [facility] Comment on above: Performed By: #### C BC ####[facility] Idytnpookc7530 [place] [address]Dr. Arnoldo Brandon MCH (RBC) [Entitic mass] 30.1 pg Normal 26.7-34.0 [facility] Comment on above: Performed By: #### C BC ####[facility] Dapewpazpl1041 [place] [address]Dr. Arnoldo Brandon MCHC (RBC) [Mass/Vol] 32.2 g/dL Normal 29.9-35.2 [facility] Comment on above: Performed By: #### C BC ####[facility] Geadupcuqb52[address] [place] [address]Dr. Arnoldo Brandon MCV (RBC) [Entitic vol] 93.3 fL Normal 81.0-99.0 [facility] Comment on above: Performed By: #### C BC ####[facility] Iqxdsuutmk29[address] [place] [phone]. Arnoldo Taylor MONO # 0.8 103/ul Normal 0.3-0.8 [facility] Comment on above: Performed By: #### C BC ####[facility] Brmrwvgelp2298 [place] [phone]. Arnoldo Taylor Monocytes/100 WBC (Bld) 10.4 % Normal 1.7-12.0 [facility] Comment on above: Performed By: #### C BC ####[facility] Qdfrnhtpdq8365 [place] [phone]. Arnoldo Taylor NEUT # 3.0 103/ul Normal 1.4-6.5 [facility] Comment on above: Performed By: #### C BC ####[facility] Zvydrjrube1188 [place] [phone]. Arnoldo Taylor Neutrophils/100 WBC (Bld) 39.1 % Critically low 43.0-75.0 [facility] Comment on above: Performed By: #### C BC ####[facility] Wbcokhuxzk9934 [place] [phone]. Arnoldo Taylor Platelet mean volume (Bld) [Entitic vol] 9.5 fL Normal 9.5-13.5 [facility] Comment on above: Performed By: #### C BC ####[facility] Pumnnwemyk040[address] [place] [phone]. Arnoldo Taylor PLT 108 103/ul Critically low 150-450 [facility] Comment on above: Performed By: #### C BC ####[facility] Qhwmywpanz3840 [place] [phone]. Arnoldo Taylor RBC 3.26 106/ul Critically low 4.20-5.40 [facility] Comment on above: Performed By: #### C BC ####[facility] Hwetpfbyyk0900 [place] [phone]. Arnoldo Taylor WBC 7.6 103/ul Normal 4.0-11.0 [facility] Comment on above: Performed By: #### C BC ####[facility] Xrafubtqyx9845 [place] [phone]. Arnoldo Taylor CTA CHEST WO W CONon 022 CTA CHEST WO W CON Normal [facility] POINT OF CARE GLUCOSEon 01-01 Glucose [Mass/Vol] 88 mg/dL Normal 74-106 [facility] Comment on above: Performed By: #### P OCGLUC ####[facility] Komuhsusgh20[address] [place] [address]Dr. Arnoldo Taylor Glucose [Mass/Vol] 95 mg/dL Normal 74-106 [facility] Comment on above: Performed By: #### P OCGLUC ####[facility] Sayogxhwvl6407 [place] [address]Dr. Arnoldo Taylor Glucose [Mass/Vol] 117 mg/dL Critically high 74-106 [facility] Comment on above: Performed By: #### P OCGLUC ####[facility] Sopljdtnqv5827 [place] [address]Dr. Arnoldo Taylor PROF 14(COMP METB)on 022 Albumin [Mass/Vol] 2.4 g/dL Critically low 3.4-5.0 [facility] Comment on above: Performed By: #### C MP ####[facility] Itlnmycrtl9642 [place] [address]Dr. Arnoldo Taylor Albumin/Globulin [Mass ratio] 0.7 {ratio} [facility] Comment on above: Performed By: #### C MP ####[facility] Eufwwmwyfe4474 [place] [address]Dr. Arnoldo Taylor ALP [Catalytic activity/Vol] 75 U/L Normal 46-116 [facility] Comment on above: Performed By: #### C MP ####[facility] Gbkzxhndyc5379 [place] [address]Dr. Arnoldo Taylor ALT [Catalytic activity/Vol] 14 U/L Normal 14-59 [facility] Comment on above: Performed By: #### C MP ####[facility] Trdpsbuxah5808 [place] [address]Dr. Arnoldo Taylor Anion gap [Moles/Vol] 13.0 mmol/L Normal [facility] Comment on above: Performed By: #### C MP ####[facility] Fwvrrukhak6601 [place] [phone]. Arnoldo Taylor AST [Catalytic activity/Vol] 15 U/L Normal 15-37 [facility] Comment on above: Performed By: #### C MP ####[facility] Ytecdxuemx3870 [place] [phone]. Arnoldo Taylor Bilirubin [Mass/Vol] 0.3 mg/dL Normal 0.2-1.0 [facility] Comment on above: Performed By: #### C MP ####[facility] Vmfnkiokmg3100 [place] [address]Dr. Arnoldo Taylor Calcium [Mass/Vol] 8.2 mg/dL Critically low 8.5-10.1 [facility] Comment on above: Performed By: #### C MP ####[facility] Kagaraaswt[address] [place], [place] [address]Dr. Arnoldo Taylor Chloride [Moles/Vol] 111 mmol/L Critically high 98-107 [facility] Comment on above: Performed By: #### C MP ####[facility] Euspldwxup8[address] [place], [place] [address]Dr. Arnoldo Taylor CO2 [Moles/Vol] 21.3 mmol/L Normal 21.0-32.0 [facility] Comment on above: Performed By: #### C MP ####[facility] Ltizxdyxgl45[address] [place], [place] [address]Dr. Arnoldo Taylor Creatinine [Mass/Vol] 0.96 mg/dL Normal 0.55-1.02 [facility] Comment on above: Performed By: #### C MP ####[facility] Twbcmkadgz23[address] [place], [place] [phone]. Lynettesujata Brandon EGFR-AF BURKINAN >60 Normal >=60 [facility] Comment on above: Performed By: #### C MP ####[facility] Powpautqbo[address] [place], [place] [phone]. Arnoldo Taylor EGFR-NON AF BURKINAN 56 mL/min/1.73m2 Critically low >=60 [facility] Comment on above: Performed By: #### C MP ####[facility] Chsklmnett1025 [place] [address]Dr. Arnoldo Taylor Globulin (S) [Mass/Vol] 3.4 g/dL Normal [facility] Comment on above: Performed By: #### C MP ####[facility] Iolcyihsyr5631 [place] [phone]. Arnoldo Taylor Glucose [Mass/Vol] 97 mg/dL Normal 74-106 [facility] Comment on above: Performed By: #### C MP ####[facility] Mimafexnmk2094 [place] [address]Dr. Arnoldo Taylor Potassium [Moles/Vol] 3.3 mmol/L Critically low 3.5-5.1 [facility] Comment on above: Performed By: #### C MP ####[facility] Umvszhtvfm2677 [place] [address]Dr. Arnoldo Taylor Protein [Mass/Vol] 5.8 g/dL Critically low 6.4-8.2 [facility] Comment on above: Performed By: #### C MP ####[facility] Uwtfqyzxtj2179 [place] [address]Dr. Arnoldo Taylor Sodium [Moles/Vol] 142 mmol/L Normal 136-145 [facility] Comment on above: Performed By: #### C MP ####[facility] Dvfpxfnxrl9185 [place] [address]Dr. Arnoldo Taylor Urea nitrogen [Mass/Vol] 12.0 mg/dL Normal 7.0-18.0 [facility] Comment on above: Performed By: #### C MP ####[facility] Eexasgfvnb7641 [place] [address]Dr. Arnoldo Taylor Urea nitrogen/Creatinine [Mass ratio] 12.5 mg/mg Normal [facility] Comment on above: Performed By: #### C MP ####[facility] Vskjonvezx1656 [place] [address]Dr. Arnoldo [address] CT CHEST WO CONon 01-27-2022 CT CHEST WO CON Normal [facility] ECHOCARDIO M/2D COMPLETEon 0 01-27-2022 ECHOCARDIO M/2D COMPLETE Normal [facility] POINT OF CARE GLUCOSEon 09-2 Glucose [Mass/Vol] 142 mg/dL Critically high 74-106 [facility] Comment on above: Performed By: #### P OCGLUC ####[facility] Lnpngwkwov7065 [place] [address]Dr. Arnoldo Taylor Glucose [Mass/Vol] 121 mg/dL Critically high 74-106 [facility] Comment on above: Performed By: #### P OCGLUC ####[facility] Ydokcsinvv8729 [place] [address]Dr. Arnoldo Taylor RESPIRATORY PANEL PLUSon Adenovirus Not detected Normal NOT DETECTED [facility] Comment on above: Performed By: #### R SPLUS ####[facility] Wqvcbqsspr13[address] [place], [place] [address]Dr. Arnoldo Taylor B. Parapertusis Not detected Normal NOT DETECTED [facility] Comment on above: Performed By: #### R SPLUS ####[facility] Ijqymzhuee3[address] [place], [place] [address]Dr. Arnoldo Taylor B. Pertussis Not detected Normal NOT DETECTED [facility] Comment on above: Performed By: #### R SPLUS ####[facility] Ziyfuirkrs029[address] [place], [place] [address]Dr. Arnoldo Taylor Chlamydia Pneumoniae Not detected Normal NOT DETECTED [facility] Comment on above: Performed By: #### R SPLUS ####[facility] Iwiuppjpck184[address] [place], [place] [address]Dr. Arnoldo Taylor Coronavirus 229E Not detected Normal NOT DETECTED [facility] Comment on above: Performed By: #### R SPLUS ####[facility] Jifqcbmoyz8735[address] [place], [place] [address]Dr. Arnoldo Taylor Coronavirus HKU1 Not detected Normal NOT DETECTED [facility] Comment on above: Performed By: #### R SPLUS ####[facility] Ugxwtckiwd8527[address] [place], [place] [address]Dr. Arnoldo Taylor Coronavirus NL63 Not detected Normal NOT DETECTED [facility] Comment on above: Performed By: #### R SPLUS ####[facility] Dckznlibfk2188 [place] [address]Dr. Arnoldo Taylor Coronavirus OC43 Not detected Normal NOT DETECTED [facility] Comment on above: Performed By: #### R SPLUS ####[facility] Bgoghtefqz4323 [place] [address]Dr. Arnoldo Taylor Influenza A H1 2009 Not detected Normal NOT DETECTED [facility] Comment on above: Performed By: #### R SPLUS ####[facility] Qgckrwfhdl549[address] [place], [place] [address]Dr. Arnoldo Taylor Influenza A H3 Not detected Normal NOT DETECTED [facility] Comment on above: Performed By: #### R SPLUS ####[facility] Siigbccmcj634[address] [place], [place] [address]Dr. Arnoldo Taylor Influenza B Not detected Normal NOT DETECTED [facility] Comment on above: Performed By: #### R SPLUS ####[facility] Pxagfqbnzl13[address] [place], [place] [address]Dr. Arnoldo Taylor Metapneumovirus Not detected Normal NOT DETECTED [facility] Comment on above: Performed By: #### R SPLUS ####[facility] Muhjipjtoc045[address] [place], [place] [address]Dr. Arnoldo Taylor Mycoplas. Pneumoniae Not detected Normal NOT DETECTED [facility] Comment on above: Performed By: #### R SPLUS ####[facility] Bkqumljkfj96[address] [place], [place] [address]Dr. Arnoldo Taylor Parainfluenza 1 Not detected Normal NOT DETECTED [facility] Comment on above: Performed By: #### R SPLUS ####[facility] Ikggetjpzj3599[address] [place], [place] [address]Dr. Yisujata Taylor Parainfluenza 2 Not detected Normal NOT DETECTED [facility] Comment on above: Performed By: #### R SPLUS ####[facility] Frcqwvbqif3[address] [place], [place] [address]Dr. Arnoldo Taylor Parainfluenza 3 Not detected Normal NOT DETECTED [facility] Comment on above: Performed By: #### R SPLUS ####[facility] Lebswqmjkf8131 [place] [address]Dr. Arnoldo Taylor Parainfluenza 4 Not detected Normal NOT DETECTED [facility] Comment on above: Performed By: #### R SPLUS ####[facility] Zguzbxueet8165 [place] [address]Dr. Arnoldo Taylor Rhino/Enterovirus Not detected Normal NOT DETECTED [facility] Comment on above: Performed By: #### R SPLUS ####[facility] Wuarvwokqc7792[address] [place], [place] [address]Dr. Arnoldo Taylor RP2 Header 1 RESPIRATORY PANEL: VIRUSES Normal [facility] Comment on above: Performed By: #### R SPLUS ####[facility] Fbpglpoxvl8634[address] [place], [place] [address]Dr. Arnoldo Taylor RP2 Header 2 RESPIRATORY PANEL: BACTERIA Normal [facility] Comment on above: Performed By: #### R SPLUS ####[facility] Thudmkwore9454[address] [place], [place] [address]Dr. Arnoldo Taylor RSV Not detected Normal NOT DETECTED [facility] Comment on above: Performed By: #### R SPLUS ####[facility] Thanwxcrni4605[address] [place], [place] [address]Dr. Arnoldo Taylor SARS-CoV-2 (COVID-19) RNA JAMMIE+probe Ql (Unsp spec) Not detected Normal NOT DETECTED [facility] Comment on above: Performed By: #### R SPLUS ####[facility] Pebduormua4943[address] [place], [place] [address]Dr. Arnoldo Taylor TROPONIN, HIGH SENSITIVITYon 01-27-2022 HSTROP 149.8 pg/mL Critically high 4.0-51.3 [facility] Comment on above: Result Comment: CUT- OFF POINTS HAVE BEEN ESTABLISHED BASED ON THE FOURTH UNIVERSAL DEFINITIONS OF MYOCARDIALINFARCTION. THE UPPER REFERENCE LIMIT (URL) OF TROPONIN, DEFINED THE 99TH PERCENTILE OFcTnI DISTRIBUTION IN A REFERENCE POPULATION, HAS BEEN CONFIRMED THE DECISION THRESHOLDFOR SC DIAGNOSIS. Performed By: #### H STROPN ####[facility] Ipvykqehpq1521 [place] [address]Dr. Arnoldo Taylor ACETONE SERUMon 01-26-2022 ACETONE Negative Normal NEGATIVE [facility] Comment on above: Performed By: #### A CETON ####[facility] Fdjcvrzvvh15[address] [place], [place] [address]Dr. Arnoldo Taylor AMMONIAon 01-26-2022 Ammonia (P) [Mass/Vol] ug/dL Critically low 11-32 [facility] Comment on above: Performed By: #### A MM ####[facility] Ouiponpjov50[address] [place], [place] [address]Dr. Arnoldo Taylor CBC AUTO DIFFon 01-26-2022 BASO # 0.0 103/ul Normal 0.0-0.1 [facility] Comment on above: Performed By: #### C BC ####[facility] Vboqqyhuco8[address] [place], [place] [address]Dr. Arnoldo Taylor Basophils/100 WBC (Bld) 0.1 % Critically low 0.2-2.0 [facility] Comment on above: Performed By: #### C BC ####[facility] Okhfhhqcpo223[address] [place], [place] [address]Dr. Arnoldo Taylor EO # 0.2 103/ul Normal 0.0-0.7 [facility] Comment on above: Performed By: #### C BC ####[facility] Uivqiflkva5184[address] [place], [place] [address]Dr. Arnoldo Taylor Eosinophils/100 WBC (Bld) 2.6 % Normal 0.9-7.0 [facility] Comment on above: Performed By: #### C BC ####[facility] Dvxmbeoljn0512[address] [place], [place] [address]Dr. Arnoldo Taylor Erythrocyte distribution width (RBC) [Ratio] 13.4 % Normal 11.0-15.0 [facility] Comment on above: Performed By: #### C BC ####[facility] Jowvooeghj4825[address] [place], [place] [address]Dr. Arnoldo Taylor Hematocrit (Bld) [Volume fraction] 35.3 % Critically low 36.0-48.0 [facility] Comment on above: Performed By: #### C BC ####[facility] Yggpclzumr4036 [place] [phone]. Arnoldo Taylor Hemoglobin (Bld) [Mass/Vol] 11.5 g/dL Critically low 12.0-16.0 [facility] Comment on above: Performed By: #### C BC ####[facility] Wuqckhjrah3691 [place] [phone]. Arnoldo Taylor IG # 0.04 10e3/ul Critically high 0.00-0.03 [facility] Comment on above: Performed By: #### C BC ####[facility] Cyulcvjbsz3830 [place] [address]Dr. Arnoldo Taylor IG % 0.5 % Normal 0.0-0.5 [facility] Comment on above: Performed By: #### C BC ####[facility] Rzyogseuxn86[address] [place], [place] [address]Dr. Arnoldo Taylor LYMPH # 2.8 103/ul Normal 1.2-3.8 [facility] Comment on above: Performed By: #### C BC ####[facility] Mnixptlsbm6678 [place] [address]Dr. Arnoldo Taylor Lymphocytes/100 WBC (Bld) 31.3 % Normal 20.5-60.0 [facility] Comment on above: Performed By: #### C BC ####[facility] Hwzfztxitl2606 [place] [address]Dr. Arnoldo Taylor MANUAL DIFF REQ NO Normal [facility] Comment on above: Performed By: #### C BC ####[facility] Ckbpjccaal[address] [place], [place] [address]Dr. Arnoldo Taylor MCH (RBC) [Entitic mass] 30.2 pg Normal 26.7-34.0 [facility] Comment on above: Performed By: #### C BC ####[facility] Oijxlnkvhg759[address] [place], [place] [address]Dr. Arnoldo Taylor MCHC (RBC) [Mass/Vol] 32.6 g/dL Normal 29.9-35.2 [facility] Comment on above: Performed By: #### C BC ####[facility] [address]owhuqexw[address] [place] [id number]. Arnoldo Taylor MCV (RBC) [Entitic vol] 92.7 fL Normal 81.0-99.0 [facility] Comment on above: Performed By: #### C BC ####[facility] [address]si[address]sizc[address] [place] [id number]. Arnoldo Taylor MONO # 0.9 103/ul Critically high 0.3-0.8 [facility] Comment on above: Performed By: #### C BC ####[facility] Zbnkcehwhd0939 [place] [id number]. Arnoldo Taylor Monocytes/100 WBC (Bld) 9.8 % Normal 1.7-12.0 [facility] Comment on above: Performed By: #### C BC ####[facility] Bnwxkyvvik[address] [place], [place] [address]Dr. Arnoldo Taylor NEUT # 4.9 103/ul Normal 1.4-6.5 [facility] Comment on above: Performed By: #### C BC ####[facility] Thoueqlzqe[address] [place], [place] [id number]. Arnoldo Taylor Neutrophils/100 WBC (Bld) 55.7 % Normal 43.0-75.0 [facility] Comment on above: Performed By: #### C BC ####[facility] Ugvzkyhyxr[address] [place], [place] [id number]. Arnoldo Taylor Platelet mean volume (Bld) [Entitic vol] 9.5 fL Normal 9.5-13.5 [facility] Comment on above: Performed By: #### C BC ####[facility] Imgtkgateh8[address] [place] [id number]. Arnoldo Taylor PLT 124 103/ul Critically low 150-450 [facility] Comment on above: Performed By: #### C BC ####[facility] Qoxvbwgced5865 [place] [id number]. Arnoldo Taylor RBC 3.81 106/ul Critically low 4.20-5.40 [facility] Comment on above: Performed By: #### C BC ####[facility] Xgqwvxwlcn9133 [place], [place] [address]Er. Arnoldo Taylor WBC 8.9 103/ul Normal 4.0-11.0 [facility] Comment on above: Performed By: #### C BC ####[facility] Phhpmijmlu6640 [place], [place] [address]Nb. Arnoldo Taylor CT STROKE HEAD WOon 01-27-20 CT STROKE HEAD WO Normal [facility] [place] [facility] CULTURE BLOODon 01-26-2022 Microscopic examination of blood, culture Culture Observations: NO GROWTH AT 5 DAYS. Normal [facility] Comment on above: Performed By: #### B LDCX2 ####[facility] Okajzcfwcz[address] [place] [id number]. Arnoldo Taylor Microscopic examination of blood, culture Culture Observations: NO GROWTH AT 5 DAYS. Normal [facility] Comment on above: Performed By: #### B LDCX1 ####[facility] Qvfplphulf9391 [place], [place] [address]Zp. Arnoldo Taylor Covid-19 PCR (CVDTBH)on 01-01 SARS-CoV-2 (COVID-19) RNA JAMMIE+probe Ql (Unsp spec) Not detected Normal NOT DETECTED [facility] Comment on above: Result Comment: When diagnostic testing is negative, the possibility of a false negative should be considered inthe context of a patient's recent exposures and the presence of clinical signs and symptomsconsistent with SARS-CoV-2.This test is not yet approved or cleared by the [place] FDA. When there are no FDA-approved or cleared tests available, and other criteria are met, FDA can make tests available under an emergency access mechanism called an Emergency Use Authorization (EUA). The EUA for this test is supported by the Executive Sous Chef of Health and Human Service's declaration that circumstances exist to justify the emergency use of in vitro diagnostics for the detection and/or diagnosis of the virus that causes COVID-19. This EUA will remain in effect for the duration of the COVID-19 declaration justifying emergency of IVDs, unless it is terminated or revoked by the FDA (after which the test may no longer be used). Performed By: #### C VDTBH ####[facility] Hpzjjrubzj15[address] [place] [address]Dr. Arnoldo Taylor ER URINE PROFILEon 2 Bilirubin Ql (U) Negative Normal NEGATIVE [facility] Comment on above: Performed By: #### U MICRO, ERUR ####[facility] Plkkztvqdt[address] [place], [place] [address]Dr. Arnoldo Taylor Clarity (U) SL CLOUDY Abnormal CLEAR [facility] Comment on above: Performed By: #### U MICRO, ERUR ####[facility] Ioxssvlcyb18[address] [place], [place] [address]Dr. Arnoldo Taylor Color (U) LT. YELLOW Normal YELLOW [facility] Comment on above: Performed By: #### U MICRO, ERUR ####[facility] Tkouluvkqp[address] [place], [place] [address]Dr. Arnoldo Taylor ERUAHD A micrscopic examination will be performed if indicated. Normal [facility] Comment on above: Performed By: #### U MICRO, ERUR ####[facility] Wpnxryhxas07[address] [place], [place] [address]Dr. Arnoldo Taylor Glucose Ql (U) Negative Normal NEGATIVE [facility] Comment on above: Performed By: #### U MICRO, ERUR ####[facility] Kjuenhuphs54[address] [place], [place] [address]Dr. Arnoldo Taylor Hemoglobin Ql (U) TRACE-LYSED Abnormal NEGATIVE [facility] Comment on above: Performed By: #### U MICRO, ERUR ####[facility] Iryvngcljz78[address] [place], [place] [address]Dr. Arnoldo Taylor Ketones Ql (U) Negative Normal NEGATIVE [facility] Comment on above: Performed By: #### U MICRO, ERUR ####[facility] Janaiupbwx7714[address] [place], [place] [address]Dr. Arnoldo Taylor LEUKOCYTES Negative Normal NEGATIVE [facility] Comment on above: Performed By: #### U MICRO, ERUR ####[facility] Kednchdjwr53[address] [place], [place] [address]Dr. Lynettelan Taylor Nitrite Ql (U) Negative Normal NEGATIVE [facility] Comment on above: Performed By: #### U MICRO, ERUR ####[facility] Gglvubmgig45[address] [place] [address]Dr. Arnoldo Taylor pH (U) 6.0 [pH] Normal 5-9 [facility] Comment on above: Performed By: #### U MICRO, ERUR ####[facility] Ombtnhuury09[address] [place] [address]Dr. Arnoldo Taylor SPEC GRAVITY 1.010 Normal 1.005-<=1.025 [facility] Comment on above: Performed By: #### U MICRO, ERUR ####[facility] Ovusapwltx[address] [place], [place] [address]Dr. Arnoldo Taylor UA PROTEIN Negative Normal NEGATIVE/ TRACE [facility] Comment on above: Performed By: #### U MICRO, ERUR ####[facility] Litzggvrto020[address] [place], [place] [address]Dr. Arnoldo Taylor UR MICRO IND INDICATED Normal [facility] Comment on above: Performed By: #### U MICRO, ERUR ####[facility] Puxxandhug[address] [place], [place] [address]Dr. Arnoldo Brandon Urobilinogen Qn (U) 0.2 {Adrienne'U}/dL Normal 0.2 - 1. 0 [facility] Comment on above: Performed By: #### U MICRO, ERUR ####[facility] Opmkoppgfx00[address] [place], [place] [address]Dr. Arnoldo Brandon LACTATE/LACTIC ACIDon 2021 Lactate [Moles/Vol] 1.4 mmol/L Normal 0.4-1.9 [facility] Comment on above: Performed By: #### L ACT ####[facility] Uvqztvqhtb[address] [place], [place] [address]Dr. Arnoldo Taylor Lactate [Moles/Vol] 3.6 mmol/L Critically high 0.4-1.9 [facility] Comment on above: Performed By: #### L ACT ####[facility] Hrjehlhgqb6[address] [place], [place] [address]Dr. Lynettesujata Taylor PH VENOUS BLOODon 01-26-2022 PCO2 VENOUS 30.5 mmHg Critically low 40.0-52.0 [facility] Comment on above: Performed By: #### P HVEN ####[facility] Kkcoruaack[address] [place] [address]Dr. Arnoldo Taylor pH VENOUS 7.542 Critically high 7.330-7.430 [facility] Comment on above: Performed By: #### P HVEN ####[facility] Axeysajekx[address] [place] [address]Dr. Arnoldo Taylor PROF 14(COMP METB)on 022 Albumin [Mass/Vol] 2.9 g/dL Critically low 3.4-5.0 [facility] Comment on above: Performed By: #### C MP, TSH, HSTROPN ####[facility] Dmsjwdhjar3[address] [place], [place] [address]Dr. Arnoldo Taylor Albumin/Globulin [Mass ratio] 0.7 {ratio} Normal [facility] Comment on above: Performed By: #### C MP, TSH, HSTROPN ####[facility] Yfxnktylgy4157[address] [place], [place] [address]Dr. Arnoldo Taylor ALP [Catalytic activity/Vol] 92 U/L Normal 46-116 [facility] Comment on above: Performed By: #### C MP, TSH, HSTROPN ####[facility] Wbqxguhobj[address] [place] [address]Dr. Arnoldo Taylor ALT [Catalytic activity/Vol] 15 U/L Normal 14-59 [facility] Comment on above: Performed By: #### C MP, TSH, HSTROPN ####[facility] Iyczulyxpz4[address] [place] [address]Dr. Arnoldo Taylor Anion gap [Moles/Vol] 14.2 mmol/L Normal [facility] Comment on above: Performed By: #### C MP, TSH, HSTROPN ####[facility] Afeujcxcrt64[address] [place] [address]Dr. Arnoldo Taylor AST [Catalytic activity/Vol] 17 U/L Normal 15-37 [facility] Comment on above: Performed By: #### C MP, TSH, HSTROPN ####[facility] Qsdpfmjcox5[address] [place] [address]Dr. Arnoldo Taylor Bilirubin [Mass/Vol] 0.3 mg/dL Normal 0.2-1.0 [facility] Comment on above: Performed By: #### C MP, TSH, HSTROPN ####[facility] Yxsanzcqnf12[address] [place], [place] [address]Dr. Arnoldo Taylor Calcium [Mass/Vol] 9.2 mg/dL Normal 8.5-10.1 [facility] Comment on above: Performed By: #### C MP, TSH, HSTROPN ####[facility] Ifahjnpwri23[address] [place], [place] [address]Dr. Arnoldo Taylor Chloride [Moles/Vol] 105 mmol/L Normal 98-107 [facility] Comment on above: Performed By: #### C MP, TSH, HSTROPN ####[facility] Wjwonklwbd7[address] [place], [place] [address]Dr. Arnoldo Taylor CO2 [Moles/Vol] 25.3 mmol/L Normal 21.0-32.0 [facility] Comment on above: Performed By: #### C MP, TSH, HSTROPN ####[facility] Isocpjiqml15[address] [place], [place] [address]Dr. Arnoldo Taylor Creatinine [Mass/Vol] 1.38 mg/dL Critically high 0.55-1.02 [facility] Comment on above: Performed By: #### C MP, TSH, HSTROPN ####[facility] Pokdnhwbmt4766[address] [place], [place] [address]Dr. Arnoldo Taylor EGFR-AF BURKINAN 45 mL/min/1.73m2 Critically low >=60 [facility] Comment on above: Performed By: #### C MP, TSH, HSTROPN ####[facility] Mfhcovkssu9817[address] [place], [place] [address]Dr. Arnoldo Taylor EGFR-NON AF BURKINAN 37 mL/min/1.73m2 Critically low >=60 [facility] Comment on above: Performed By: #### C MP, TSH, HSTROPN ####[facility] Wbtixanzxv10[address] [place] [address]Dr. Arnoldo Taylor Globulin (S) [Mass/Vol] 4.3 g/dL Normal [facility] Comment on above: Performed By: #### C MP, TSH, HSTROPN ####[facility] Dqvoircygn9076 [place] [address]Dr. Arnoldo Taylor Glucose [Mass/Vol] 90 mg/dL Normal 74-106 [facility] Comment on above: Performed By: #### C MP, TSH, HSTROPN ####[facility] Vooenlefqr6[address] [place] [address]Dr. Arnoldo Taylor Potassium [Moles/Vol] 3.5 mmol/L Normal 3.5-5.1 [facility] Comment on above: Performed By: #### C MP, TSH, HSTROPN ####[facility] Yuuawfnkgh15[address] [place], [place] [address]Dr. Arnoldo Taylor Protein [Mass/Vol] 7.2 g/dL Normal 6.4-8.2 [facility] Comment on above: Performed By: #### C MP, TSH, HSTROPN ####[facility] Lnzvxavomc0[address] [place], [place] [address]Dr. Arnoldo Taylor Sodium [Moles/Vol] 141 mmol/L Normal 136-145 [facility] Comment on above: Performed By: #### C MP, TSH, HSTROPN ####[facility] Yvnyvqsacu[address] [place], [place] [address]Dr. Arnoldo Taylor Urea nitrogen [Mass/Vol] 29.0 mg/dL Critically high 7.0-18.0 [facility] Comment on above: Performed By: #### C MP, TSH, HSTROPN ####[facility] Mamiudxkls[address] [place], [place] [address]Dr. Arnoldo Taylor Urea nitrogen/Creatinine [Mass ratio] 21.0 mg/mg Normal [facility] Comment on above: Performed By: #### C MP, TSH, HSTROPN ####[facility] Uiddjogaez[address] [place] [address]Dr. Arnoldo Taylor PROTIMEon 01-26-2022 INR Coag (PPP) [Relative time] 1.06 {INR} Normal [facility] Comment on above: Performed By: #### P T, PTT ####[facility] Xkjqjomfvn[address] [place], [place] [address]Dr. Arnoldo Taylor INR GUIDELINES SEE BELOW Normal [facility] Comment on above: Result Comment: CASSIDY RED INR: 2.0 - 3.0 CONDITIONS NOT LISTED BELOW 2.5 - 3.5 FOR PROSTHETIC HEART VALVE REPLACEMENT 2.5 - 3.5 RECURRENT THROMBOSIS Performed By: #### P T, PTT ####[facility] Scinxopgqw5234[address] [place], [place] [address]Dr. Arnoldo Taylor PT Coag (PPP) [Time] 11.4 s Normal 9.0-11.6 [facility] Comment on above: Performed By: #### P T, PTT ####[facility] Ujyaadvtiv23[address] [place], [place] [address]Dr. Arnoldo Taylor PTTon 01-26-2022 aPTT Coag (Bld) [Time] 29.1 s Normal 22.3-36.2 [facility] Comment on above: Performed By: #### P T, PTT ####[facility] Yzowiwvtxs[address] [place], [place] [address]Dr. Arnoldo Taylor TROPONIN, HIGH SENSITIVITYon 01-26-2022 HSTROP 157.4 pg/mL Critically high 4.0-51.3 [facility] Comment on above: Result Comment: CUT- OFF POINTS HAVE BEEN ESTABLISHED BASED ON THE FOURTH UNIVERSAL DEFINITIONS OF MYOCARDIALINFARCTION. THE UPPER REFERENCE LIMIT (URL) OF TROPONIN, DEFINED THE 99TH PERCENTILE OFcTnI DISTRIBUTION IN A REFERENCE POPULATION, HAS BEEN CONFIRMED THE DECISION THRESHOLDFOR SC DIAGNOSIS. Performed By: #### H STROPN ####[facility] Yefjzlwlqk7[address] [place], [place] [address]Dr. Arnoldo Taylor HSTROP 182.2 pg/mL Critically high 4.0-51.3 [facility] Comment on above: Result Comment: CUT- OFF POINTS HAVE BEEN ESTABLISHED BASED ON THE FOURTH UNIVERSAL DEFINITIONS OF MYOCARDIALINFARCTION. THE UPPER REFERENCE LIMIT (URL) OF TROPONIN, DEFINED THE 99TH PERCENTILE OFcTnI DISTRIBUTION IN A REFERENCE POPULATION, HAS BEEN CONFIRMED THE DECISION THRESHOLDFOR SC DIAGNOSIS. Performed By: #### C MP, TSH, HSTROPN ####[facility] Trksmmuqvh[address] [place] [address]Dr. Arnoldo Taylor TSHon 01-26-2022 TSH 4.233 uIU/mL Critically high 0.358-3.740 [facility] Comment on above: Performed By: #### C MP, TSH, HSTROPN ####[facility] Hbtgtgrqjd7[address] [place] [address]Dr. Arnoldo Taylor URINE MICROSCOPIC ONLYon BACTERIA NONE SEEN Normal NONE SEEN [facility] Comment on above: Performed By: #### U MICRO, ERUR ####[facility] Wlocnrktgs4724 [place] [address]Dr. Arnoldo Taylor Bacteria identified Cx Nom (U) NOT INDICATED Normal [facility] Comment on above: Performed By: #### U MICRO, ERUR ####[facility] Klbzegfdkh6943 [place] [address]Dr. Arnoldo Taylor CAST NONE SEEN Normal NONE SEEN [facility] Comment on above: Performed By: #### U MICRO, ERUR ####[facility] Wwniyswrnp5[address] [place] [address]Dr. Arnoldo Taylor Crystals LM Nom (Urine sed) NONE SEEN Normal NONE SEEN [facility] Comment on above: Performed By: #### U MICRO, ERUR ####[facility] Axlymgalyy3[address] [place], [place] [address]Dr. Arnoldo Taylor Epithelial cells LM Ql (Urine sed) RARE Normal NONE SEEN /RARE [facility] Comment on above: Performed By: #### U MICRO, ERUR ####[facility] Lwsdwwkeum[address] [place], [place] [address]Dr. Arnoldo Taylor MUCOUS NONE SEEN Normal NONE SEEN [facility] Comment on above: Performed By: #### U MICRO, ERUR ####[facility] Iocvlytjft[address] [place], [place] [address]Dr. Arnoldo Brandon RBC 2-5 Abnormal 0-2 [facility] Comment on above: Performed By: #### U MICRO, ERUR ####[facility] Vskxxzeefw6[address] [place] [id number]. Arnoldo Brandon WBC NONE SEEN Normal NONE SEEN [facility] Comment on above: Performed By: #### U MICRO, ERUR ####[facility] Hhrqpeyfny39[address] [place] [id number]. Arnoldo Brandon XR CHEST 1 Von 01-26-2022 XR CHEST 1 V Normal [facility] Office Visiton 01-25-2022 Follow-up visit [id number] Fausto Yanes 1940 F Date Provider Department Center 01/25/2022 [facility] Family History Family history unknown: Yes Level of Service:53630 [place] POSTOP FOLLOW UP VISIT RELATED TO ORIGINAL PX Reason for Visit and Comments: Follow-up [917503] Normal [facility] CBC AUTO DIFFon 01-14-2022 BASO # 0.0 103/ul Normal 0.0-0.1 [facility] Comment on above: Performed By: #### C BC ####[facility] Petlxaalvo[address] [place] [address]Dr. Arnoldo Brandon Basophils/100 WBC (Bld) 0.2 % Normal 0.2-2.0 [facility] Comment on above: Performed By: #### C BC ####[facility] Qbmjdkufki01[address] [place] [address]Dr. Lynettesujata Brandon EO # 0.4 103/ul Normal 0.0-0.7 [facility] Comment on above: Performed By: #### C BC ####[facility] Vpwgrgjqwg3513 [place] [id number]. Lynettesujata Taylor Eosinophils/100 WBC (Bld) 5.6 % Normal 0.9-7.0 [facility] Comment on above: Performed By: #### C BC ####[facility] Hgbgalpvbr5168 [place] [id number]. Lynettesujata Taylor Erythrocyte distribution width (RBC) [Ratio] 14.1 % Normal 11.0-15.0 [facility] Comment on above: Performed By: #### C BC ####[facility] Ypczszozzo9002 [place] [address]DrTye Taylor Hematocrit (Bld) [Volume fraction] 30.3 % Critically low 36.0-48.0 [facility] Comment on above: Performed By: #### C BC ####[facility] Vinmoyyesc1858 [place] [address]DrTye Taylor Hemoglobin (Bld) [Mass/Vol] 9.8 g/dL Critically low 12.0-16.0 [facility] Comment on above: Performed By: #### C BC ####[facility] Ideqbnwfnu04[address] [place], [place] [address]DrTye Taylor IG # 0.02 10e3/ul Normal 0.00-0.03 [facility] Comment on above: Performed By: #### C BC ####[facility] Fwfjbvcqjh8426[address] [place], [place] [address]DrTye Taylor IG % 0.3 % Normal 0.0-0.5 [facility] Comment on above: Performed By: #### C BC ####[facility] Jogumkisov[address] [place], [place] [address]DrTye Taylor LYMPH # 3.3 103/ul Normal 1.2-3.8 [facility] Comment on above: Performed By: #### C BC ####[facility] Bcfaqrggmn[address] [place], [place] [address]DrTye Taylor Lymphocytes/100 WBC (Bld) 52.0 % Normal 20.5-60.0 [facility] Comment on above: Performed By: #### C BC ####[facility] Gbmnusyaxz8[address] [place], [place] [address]DrTye Taylor MANUAL DIFF REQ NO Normal [facility] Comment on above: Performed By: #### C BC ####[facility] Cyllqtwgdm8801[address] [place], [place] [address]DrTye Taylor MCH (RBC) [Entitic mass] 30.4 pg Normal 26.7-34.0 [facility] Comment on above: Performed By: #### C BC ####[facility] Qicmfonnhs2798 [place] [address]Dr. Arnoldo Taylor MCHC (RBC) [Mass/Vol] 32.3 g/dL Normal 29.9-35.2 [facility] Comment on above: Performed By: #### C BC ####[facility] Dafubwloju5236 [place] [address]DrTye Taylor MCV (RBC) [Entitic vol] 94.1 fL Normal 81.0-99.0 [facility] Comment on above: Performed By: #### C BC ####[facility] Uturcyjpbm04[address] [place], [place] [address]DrTye Taylor MONO # 0.6 103/ul Normal 0.3-0.8 [facility] Comment on above: Performed By: #### C BC ####[facility] Dlsltocpqh4[address] [place], [place] [address]Dr. Arnoldo Taylor Monocytes/100 WBC (Bld) 10.0 % Normal 1.7-12.0 [facility] Comment on above: Performed By: #### C BC ####[facility] Bnfhpbhghb[address] [place], [place] [address]DrTye Taylor NEUT # 2.0 103/ul Normal 1.4-6.5 [facility] Comment on above: Performed By: #### C BC ####[facility] Efaakrsdzc4[address] [place], [place] [address]Dr. Arnoldo Taylor Neutrophils/100 WBC (Bld) 31.9 % Critically low 43.0-75.0 [facility] Comment on above: Performed By: #### C BC ####[facility] Jdyqwclokb14[address] [place], [place] [address]DrTye Taylor Platelet mean volume (Bld) [Entitic vol] 9.6 fL Normal 9.5-13.5 [facility] Comment on above: Performed By: #### C BC ####[facility] Zwvyoqrrts9234[address] [place], [place] [address]Dr. Arnoldo Taylor PLT 116 103/ul Critically low 150-450 [facility] Comment on above: Performed By: #### C BC ####[facility] Okdtqmpjqt13[address] [place] [id number]. Lynettesujata Brandon RBC 3.22 106/ul Critically low 4.20-5.40 [facility] Comment on above: Performed By: #### C BC ####[facility] Nclpihjefn24[address] [place] [address]Dr. Arnoldo Taylor WBC 6.3 103/ul Normal 4.0-11.0 [facility] Comment on above: Performed By: #### C BC ####[facility] Asgmzdwwzw1678 [place] [address]DrTye Taylor PROF 14(COMP METB)on 022 Albumin [Mass/Vol] 2.4 g/dL Critically low 3.4-5.0 [facility] Comment on above: Performed By: #### C MP ####[facility] Yxiygnnfgp[address] [place], [place] [address]Dr. Arnoldo Taylor Albumin/Globulin [Mass ratio] 0.7 {ratio} Normal [facility] Comment on above: Performed By: #### C MP ####[facility] Vfhhpynsbs[address] [place], [place] [address]Dr. Arnoldo Taylor ALP [Catalytic activity/Vol] 92 U/L Normal 46-116 [facility] Comment on above: Performed By: #### C MP ####[facility] Wvkjnhtwev022[address] [place] [address]Dr. Arnoldo Taylor ALT [Catalytic activity/Vol] 28 U/L Normal 14-59 [facility] Comment on above: Performed By: #### C MP ####[facility] Hbbodtwjoq7980 [place] [address]Dr. Arnoldo Taylor Anion gap [Moles/Vol] 9.6 mmol/L Normal [facility] Comment on above: Performed By: #### C MP ####[facility] Sxgauddrje01[address] [place], [place] [address]Dr. Arnoldo Taylor AST [Catalytic activity/Vol] 25 U/L Normal 15-37 [facility] Comment on above: Performed By: #### C MP ####[facility] Rgkiofjibf4[address] [place] [address]Dr. Arnoldo Brandon Bilirubin [Mass/Vol] 0.2 mg/dL Normal 0.2-1.0 [facility] Comment on above: Performed By: #### C MP ####[facility] Tdzhmpxluh34[address] [place], [place] [address]Dr. Arnoldo Brandon Calcium [Mass/Vol] 8.3 mg/dL Critically low 8.5-10.1 [facility] Comment on above: Performed By: #### C MP ####[facility] Kwpfqzvlrc7[address] [place], [place] [address]Dr. Arnoldo Brandon Chloride [Moles/Vol] 103 mmol/L Normal 98-107 [facility] Comment on above: Performed By: #### C MP ####[facility] Xzaxphwgjr94[address] [place], [place] [address]Dr. Arnoldo Brandon CO2 [Moles/Vol] 25.5 mmol/L Normal 21.0-32.0 [facility] Comment on above: Performed By: #### C MP ####[facility] Flzvlpwabd[address] [place], [place] [address]Dr. Arnoldo Brandon Creatinine [Mass/Vol] 1.17 mg/dL Critically high 0.55-1.02 [facility] Comment on above: Performed By: #### C MP ####[facility] Ztozchjurd[address] [place], [place] [address]Dr. Arnoldo Brandon EGFR-AF BURKINAN 54 mL/min/1.73m2 Critically low >=60 [facility] Comment on above: Performed By: #### C MP ####[facility] Mwdlmzynqk[address] [place], [place] [address]Dr. Arnoldo Taylor EGFR-NON AF BURKINAN 45 mL/min/1.73m2 Critically low >=60 [facility] Comment on above: Performed By: #### C MP ####[facility] Hjkelrwthv[address] [place], [place] [address]Dr. Arnoldo Taylor Globulin (S) [Mass/Vol] 3.4 g/dL Normal [facility] Comment on above: Performed By: #### C MP ####[facility] Zpklnxclxq952[address] [place], [place] [address]Dr. Arnoldo Taylor Glucose [Mass/Vol] 110 mg/dL Critically high 74-106 T [facility] Comment on above: Performed By: #### C MP ####[facility] Skcnfbidah40[address] [place], [place] [address]Dr. Arnoldo Taylor Potassium [Moles/Vol] 4.1 mmol/L Normal 3.5-5.1 [facility] Comment on above: Performed By: #### C MP ####[facility] Btqmhtoedh[address] [place], [place] [address]Dr. Arnoldo Taylor Protein [Mass/Vol] 5.8 g/dL Critically low 6.4-8.2 Th [facility] Comment on above: Performed By: #### C MP ####[facility] Eolqzrvmxl9072[address] [place], [place] [address]Dr. Arnoldo Taylor Sodium [Moles/Vol] 134 mmol/L Critically low 136-145 Th [facility] Comment on above: Performed By: #### C MP ####[facility] Bbbbyddmzk[address] [place], [place] [address]Dr. Arnoldo Taylor Urea nitrogen [Mass/Vol] 15.0 mg/dL Normal 7.0-18.0 [facility] Comment on above: Performed By: #### C MP ####[facility] Bjobpuwgeh6816[address] [place], [place] [address]Dr. Arnoldo Taylor Urea nitrogen/Creatinine [Mass ratio] 12.8 mg/mg Normal [facility] Comment on above: Performed By: #### C MP ####[facility] Ovnawbuiez34[address] [place], [place] [address]Dr. Arnoldo Taylor CBC AUTO DIFFon 01-13-2022 BASO # 0.0 103/ul Normal 0.0-0.1 [facility] Comment on above: Performed By: #### C BC ####[facility] Bdgozcmhvb5058[address] [place], [place] [address]Dr. Arnoldo Taylor Basophils/100 WBC (Bld) 0.2 % Normal 0.2-2.0 [facility] Comment on above: Performed By: #### C BC ####[facility] Yyzowudgck4525[address] [place], [place] [address]DrTye Arnoldo Taylor EO # 0.3 103/ul Normal 0.0-0.7 [facility] Comment on above: Performed By: #### C BC ####[facility] Eyivmkgptd2834[address] [place], [place] [address]Dr. Arnoldo Taylor Eosinophils/100 WBC (Bld) 6.1 % Normal 0.9-7.0 [facility] Comment on above: Performed By: #### C BC ####[facility] Leibbbjvtz2363[address] [place], [place] [address]Dr. Arnoldo Taylor Erythrocyte distribution width (RBC) [Ratio] 14.2 % Normal 11.0-15.0 [facility] Comment on above: Performed By: #### C BC ####[facility] Tmgirdqoqe8039[address] [place], [place] [address]Dr. Arnoldo Taylor Hematocrit (Bld) [Volume fraction] 32.1 % Critically low 36.0-48.0 [facility] Comment on above: Performed By: #### C BC ####[facility] Rletftkqkg5784[address] [place], [place] [address]Dr. Arnoldo Taylor Hemoglobin (Bld) [Mass/Vol] 10.1 g/dL Critically low 12.0-16.0 [facility] Comment on above: Performed By: #### C BC ####[facility] Osqphmpfjr9[address] [place], [place] [address]Dr. Arnoldo Taylor IG # 0.01 10e3/ul Normal 0.00-0.03 [facility] Comment on above: Performed By: #### C BC ####[facility] Bgsufhcnxw1786[address] [place], [place] [address]DrTye Arnoldo Brandon IG % 0.2 % Normal 0.0-0.5 [facility] Comment on above: Performed By: #### C BC ####[facility] Zztuijvzfs8[address] [place], [place] [address]Dr. Arnoldo Taylor LYMPH # 2.6 103/ul Normal 1.2-3.8 [facility] Comment on above: Performed By: #### C BC ####[facility] Nlghtpwwex55[address] [place] [address]Dr. Arnoldo Taylor Lymphocytes/100 WBC (Bld) 46.8 % Normal 20.5-60.0 [facility] Comment on above: Performed By: #### C BC ####[facility] Hjjifoyvol59[address] [place] [address]Dr. Arnoldo Taylor MANUAL DIFF REQ NO Normal [facility] Comment on above: Performed By: #### C BC ####[facility] Awyegwndzu49[address] [place] [address]Dr. Arnoldo Taylor MCH (RBC) [Entitic mass] 30.5 pg Normal 26.7-34.0 [facility] Comment on above: Performed By: #### C BC ####[facility] Xrzktgmqsd0594[address] [place], [place] [address]Dr. Arnoldo Taylor MCHC (RBC) [Mass/Vol] 31.5 g/dL Normal 29.9-35.2 [facility] Comment on above: Performed By: #### C BC ####[facility] Tbsiqtxzuu5738[address] [place], [place] [address]Dr. Arnoldo Taylor MCV (RBC) [Entitic vol] 97.0 fL Normal 81.0-99.0 [facility] Comment on above: Performed By: #### C BC ####[facility] Bmusippfgi975[address] [place], [place] [address]Dr. Arnoldo Taylor MONO # 0.6 103/ul Normal 0.3-0.8 [facility] Comment on above: Performed By: #### C BC ####[facility] Jkauuyypgv59[address] [place], [place] [address]Dr. Arnoldo Taylor Monocytes/100 WBC (Bld) 10.6 % Normal 1.7-12.0 [facility] Comment on above: Performed By: #### C BC ####[facility] Gvdnqmabbc3124[address] [place], [place] [address]Dr. Arnoldo Taylor NEUT # 2.0 103/ul Normal 1.4-6.5 [facility] Comment on above: Performed By: #### C BC ####[facility] Attjkoidvk5[address] [place] [address]Dr. Arnoldo Taylor Neutrophils/100 WBC (Bld) 36.1 % Critically low 43.0-75.0 [facility] Comment on above: Performed By: #### C BC ####[facility] Kworegbxfc5211 [place] [address]Dr. Arnoldo Brandon Platelet mean volume (Bld) [Entitic vol] 10.3 fL Normal 9.5-13.5 [facility] Comment on above: Performed By: #### C BC ####[facility] Cesujppjsb7966[address] [place], [place] [address]DrTye Ojedasujata Brandon PLT 102 103/ul Critically low 150-450 [facility] Comment on above: Performed By: #### C BC ####[facility] Ptoelarima033[address] [place], [place] [address]Dr. Lynettesujata Brandon RBC 3.31 106/ul Critically low 4.20-5.40 [facility] Comment on above: Performed By: #### C BC ####[facility] Ujofecilqz2222[address] [place], [place] [address]DrTye Arnoldo Brandon WBC 5.6 103/ul Normal 4.0-11.0 [facility] Comment on above: Performed By: #### C BC ####[facility] Jyrtiktdvd01[address] [place], [place] [address]DrTye Taylor PROF 14(COMP METB)on 022 Albumin [Mass/Vol] 2.5 g/dL Critically low 3.4-5.0 [facility] Comment on above: Performed By: #### C MP ####[facility] Oybyijjfan785[address] [place], [place] [address]DrTye Taylor Albumin/Globulin [Mass ratio] 0.7 {ratio} Normal [facility] Comment on above: Performed By: #### C MP ####[facility] Kyvegnvsmw4152[address] [place], [place] [address]Dr. Arnoldo Brandon ALP [Catalytic activity/Vol] 109 U/L Normal 46-116 [facility] Comment on above: Performed By: #### C MP ####[facility] Qnuinffulo2794 [place] [address]Dr. Arnoldo Brandon ALT [Catalytic activity/Vol] 33 U/L Normal 14-59 [facility] Comment on above: Performed By: #### C MP ####[facility] Pixxoqnjzd8498 [place] [address]Dr. Arnoldo Brandon Anion gap [Moles/Vol] 10.1 mmol/L Normal [facility] Comment on above: Performed By: #### C MP ####[facility] Vataskmxeg657[address] [place], [place] [address]Dr. Arnoldo Brandon AST [Catalytic activity/Vol] 39 U/L Critically high 15-37 [facility] Comment on above: Performed By: #### C MP ####[facility] Nitwcsswsi5757[address] [place], [place] [address]Dr. Arnoldo Brandon Bilirubin [Mass/Vol] 0.1 mg/dL Critically low 0.2-1.0 [facility] Comment on above: Performed By: #### C MP ####[facility] Uyuuisekds627[address] [place], [place] [address]Dr. Arnoldo Taylor Calcium [Mass/Vol] 8.4 mg/dL Critically low 8.5-10.1 Th [facility] Comment on above: Performed By: #### C MP ####[facility] Zwblctgedh9466 [place] [address]Dr. Lynettesujata Taylor Chloride [Moles/Vol] 104 mmol/L Normal 98-107 [facility] Comment on above: Performed By: #### C MP ####[facility] Wedpziqlen8478[address] [place], [place] [address]Dr. Arnoldo Taylor CO2 [Moles/Vol] 26.3 mmol/L Normal 21.0-32.0 [facility] Comment on above: Performed By: #### C MP ####[facility] Hqulxewlqu6932[address] [place], [place] [address]Dr. Arnoldo Taylor Creatinine [Mass/Vol] 1.10 mg/dL Critically high 0.55-1.02 [facility] Comment on above: Performed By: #### C MP ####[facility] Vfvqqyicdu29[address] [place] [address]Dr. Arnoldo Taylor EGFR-AF BURKINAN 58 mL/min/1.73m2 Critically low >=60 [facility] Comment on above: Performed By: #### C MP ####[facility] Zpnktuvhsq0897 [place] [id number]. Arnoldo Brandon EGFR-NON AF BURKINAN 48 mL/min/1.73m2 Critically low >=60 [facility] Comment on above: Performed By: #### C MP ####[facility] Bjjkawzjjs939[address] [place], [place] [address]Dr. Arnoldo Taylor Globulin (S) [Mass/Vol] 3.5 g/dL Normal [facility] Comment on above: Performed By: #### C MP ####[facility] Vevodonziv2442[address] [place], [place] [address]Dr. Arnoldo Taylor Glucose [Mass/Vol] 103 mg/dL Normal 74-106 [facility] Comment on above: Performed By: #### C MP ####[facility] Mutlbgnqpe3774[address] [place], [place] [address]Dr. Arnoldo Taylor Potassium [Moles/Vol] 4.4 mmol/L Normal 3.5-5.1 [facility] Comment on above: Performed By: #### C MP ####[facility] Fawkmapqzv7171 [place] [address]Dr. Arnoldo Taylor Protein [Mass/Vol] 6.0 g/dL Critically low 6.4-8.2 Th e [facility] Comment on above: Performed By: #### C MP ####[facility] Qgudrdkjoi983[address] [place], [place] [address]Dr. Arnoldo Taylor Sodium [Moles/Vol] 136 mmol/L Normal 136-145 [facility] Comment on above: Performed By: #### C MP ####[facility] Ssxghahjlp7647[address] [place], [place] [address]Dr. Arnoldo Taylor Urea nitrogen [Mass/Vol] 15.0 mg/dL Normal 7.0-18.0 [facility] Comment on above: Performed By: #### C MP ####[facility] Wlaxglkspk7815[address] [place], [place] [address]Dr. Arnoldo Taylor Urea nitrogen/Creatinine [Mass ratio] 13.6 mg/mg Normal [facility] Comment on above: Performed By: #### C MP ####[facility] Hlqayhlfoz8434[address] [place], [place] [address]Dr. Arnoldo Taylor XR CHEST 2 Von 01-13-2022 XR CHEST 2 V Normal [facility] CBC AUTO DIFFon 01-12-2022 BASO # 0.0 103/ul Normal 0.0-0.1 [facility] Comment on above: Performed By: #### C BC ####[facility] Zeyzjkyejb[address] [place], [place] [address]Dr. Arnoldo Brandon Basophils/100 WBC (Bld) 0.2 % Normal 0.2-2.0 [facility] Comment on above: Performed By: #### C BC ####[facility] Cnzikpsbij[address] [place], [place] [address]Dr. Arnoldo Taylor EO # 0.3 103/ul Normal 0.0-0.7 [facility] Comment on above: Performed By: #### C BC ####[facility] Miatnukwcw[address] [place], [place] [address]Dr. Arnoldo Taylor Eosinophils/100 WBC (Bld) 5.0 % Normal 0.9-7.0 [facility] Comment on above: Performed By: #### C BC ####[facility] Jhedjduhly[address] [place], [place] [address]Dr. Arnoldo Taylor Erythrocyte distribution width (RBC) [Ratio] 14.2 % Normal 11.0-15.0 [facility] Comment on above: Performed By: #### C BC ####[facility] Qacvczsdur2958[address] [place], [place] [address]Dr. Arnoldo Taylor Hematocrit (Bld) [Volume fraction] 29.6 % Critically low 36.0-48.0 [facility] Comment on above: Performed By: #### C BC ####[facility] Cjlpccjogl04[address] [place] [id number]. Arnoldo Taylor Hemoglobin (Bld) [Mass/Vol] 9.4 g/dL Critically low 12.0-16.0 [facility] Comment on above: Performed By: #### C BC ####[facility] Sivdrjcmli1238 [place] [id number]. Arnoldo Taylor IG # 0.02 10e3/ul Normal 0.00-0.03 [facility] Comment on above: Performed By: #### C BC ####[facility] Vhplobdhpn6365 [place] [id number]. Arnoldo Taylor IG % 0.4 % Normal 0.0-0.5 [facility] Comment on above: Performed By: #### C BC ####[facility] Khmdlfxsqi11[address] [place] [address]Dr. Arnoldo Taylor LYMPH # 2.7 103/ul Normal 1.2-3.8 [facility] Comment on above: Performed By: #### C BC ####[facility] Bjznwtdxmb3864 [place] [id number]. Arnoldo Taylor Lymphocytes/100 WBC (Bld) 48.9 % Normal 20.5-60.0 [facility] Comment on above: Performed By: #### C BC ####[facility] Skwpqruqye9106 [place] [id number]. Arnoldo Taylor MANUAL DIFF REQ NO Normal [facility] Comment on above: Performed By: #### C BC ####[facility] Liuorrpaly0991 [place] [phone]. Arnoldo Taylor MCH (RBC) [Entitic mass] 30.5 pg Normal 26.7-34.0 [facility] Comment on above: Performed By: #### C BC ####[facility] Anxmumvwcc4214 [place] [id number]. Arnoldo Taylor MCHC (RBC) [Mass/Vol] 31.8 g/dL Normal 29.9-35.2 [facility] Comment on above: Performed By: #### C BC ####[facility] Wjedbvhrrz5374 [place] [phone]. Arnoldo Taylor MCV (RBC) [Entitic vol] 96.1 fL Normal 81.0-99.0 [facility] Comment on above: Performed By: #### C BC ####[facility] Aovujpaywz4563 [place] [id number]. Arnoldo Taylor MONO # 0.7 103/ul Normal 0.3-0.8 [facility] Comment on above: Performed By: #### C BC ####[facility] Qxtklemtji2884 [place] [phone]. Arnoldo Taylor Monocytes/100 WBC (Bld) 13.2 % Critically high 1.7-12.0 [facility] Comment on above: Performed By: #### C BC ####[facility] Oyfwjexegb7[address] [place], [place] [address]Dr. Arnoldo Taylor NEUT # 1.8 103/ul Normal 1.4-6.5 [facility] Comment on above: Performed By: #### C BC ####[facility] Ziwhhtmwaw[address] [place], [place] [address]Dr. Arnoldo Taylor Neutrophils/100 WBC (Bld) 32.3 % Critically low 43.0-75.0 [facility] Comment on above: Performed By: #### C BC ####[facility] Jenfzlvsvx697[address] [place], [place] [address]Dr. Arnoldo Taylor Platelet mean volume (Bld) [Entitic vol] 9.6 fL Normal 9.5-13.5 [facility] Comment on above: Performed By: #### C BC ####[facility] Xzkfnrdcjc6665 [place] [id number]. Arnoldo Taylor PLT 106 103/ul Critically low 150-450 [facility] Comment on above: Performed By: #### C BC ####[facility] Chcxbwvqgp8438 [place] [phone]. Arnoldo Taylor RBC 3.08 106/ul Critically low 4.20-5.40 [facility] Comment on above: Performed By: #### C BC ####[facility] Jjiihzjcag6933 [place] [address]Dr. Arnoldo Taylor WBC 5.4 103/ul Normal 4.0-11.0 [facility] Comment on above: Performed By: #### C BC ####[facility] Beanvwyzsl80[address] [place] [address]Dr. Arnoldo Taylor PROF 14(COMP METB)on 022 Albumin [Mass/Vol] 2.3 g/dL Critically low 3.4-5.0 Th [facility] Comment on above: Performed By: #### C MP ####[facility] Wqgyotygtd7479 [place] [address]Dr. Arnoldo Taylor Albumin/Globulin [Mass ratio] 0.7 {ratio} Normal [facility] Comment on above: Performed By: #### C MP ####[facility] Ukbvxuuefu27[address] [place], [place] [address]Dr. Arnoldo Taylor ALP [Catalytic activity/Vol] 105 U/L Normal 46-116 [facility] Comment on above: Performed By: #### C MP ####[facility] Jagtsvmopu7979 [place] [address]Dr. Arnoldo Taylor ALT [Catalytic activity/Vol] 34 U/L Normal 14-59 [facility] Comment on above: Performed By: #### C MP ####[facility] Aynpkzgelu2937 [place] [address]Dr. Arnoldo Taylor Anion gap [Moles/Vol] 9.7 mmol/L Normal [facility] Comment on above: Performed By: #### C MP ####[facility] Kfrkpeybsy2030 [place] [address]Dr. Arnoldo Taylor AST [Catalytic activity/Vol] 44 U/L Critically high 15-37 [facility] Comment on above: Performed By: #### C MP ####[facility] Qhgcgppgov9918 [place] [address]Dr. Arnoldo Taylor Bilirubin [Mass/Vol] 0.2 mg/dL Normal 0.2-1.0 [facility] Comment on above: Performed By: #### C MP ####[facility] Zkrjjpngtg0239 [place] [id number]. rAnoldo Taylor Calcium [Mass/Vol] 8.2 mg/dL Critically low 8.5-10.1 Th [facility] Comment on above: Performed By: #### C MP ####[facility] Filvqszqph8574 [place] [phone]. Arnoldo Taylor Chloride [Moles/Vol] 107 mmol/L Normal 98-107 [facility] Comment on above: Performed By: #### C MP ####[facility] Bwooniezny3415 [place] [phone]. Arnoldo Taylor CO2 [Moles/Vol] 25.3 mmol/L Normal 21.0-32.0 [facility] Comment on above: Performed By: #### C MP ####[facility] Zkhkutlrfl2903 [place] [address]Dr. Arnoldo Taylor Creatinine [Mass/Vol] 1.05 mg/dL Critically high 0.55-1.02 [facility] Comment on above: Performed By: #### C MP ####[facility] Kqimcjgpog4085 [place] [address]Dr. Arnoldo Taylor EGFR-AF BURKINAN >60 Normal >=60 [facility] Comment on above: Performed By: #### C MP ####[facility] Hwhotnwhgg1493 [place] [phone]. Arnoldo Taylor EGFR-NON AF BURKINAN 51 mL/min/1.73m2 Critically low >=60 [facility] Comment on above: Performed By: #### C MP ####[facility] Lhxrivvxbn7860 [place] [phone]. Arnoldo Taylor Globulin (S) [Mass/Vol] 3.4 g/dL Normal [facility] Comment on above: Performed By: #### C MP ####[facility] Eqeqqdqnjq5447 [place] [id number]. Arnoldo Taylor Glucose [Mass/Vol] 109 mg/dL Critically high 74-106 [facility] Comment on above: Performed By: #### C MP ####[facility] Qmbzydytfk1749 [place] [phone]. Arnoldo Taylor Potassium [Moles/Vol] 4.0 mmol/L Normal 3.5-5.1 [facility] Comment on above: Performed By: #### C MP ####[facility] Ucnmdiqcqi4032 [place] [phone]. Arnoldo Taylor Protein [Mass/Vol] 5.7 g/dL Critically low 6.4-8.2 Th [facility] Comment on above: Performed By: #### C MP ####[facility] Yhoximyzgs5838[address] [place], [place] [address]Dr. Arnoldo Taylor Sodium [Moles/Vol] 138 mmol/L Normal 136-145 [facility] Comment on above: Performed By: #### C MP ####[facility] Egwzpsllgz1535[address] [place], [place] [address]Dr. Arnoldo Taylor Urea nitrogen [Mass/Vol] 14.0 mg/dL Normal 7.0-18.0 [facility] Comment on above: Performed By: #### C MP ####[facility] Orolicuspj8183[address] [place], [place] [address]Dr. Arnoldo Taylor Urea nitrogen/Creatinine [Mass ratio] 13.3 mg/mg Normal [facility] Comment on above: Performed By: #### C MP ####[facility] Snrhrzaemo843[address] [place], [place] [address]Dr. Arnoldo Brandon CBC AUTO DIFFon 01-11-2022 BASO # 0.0 103/ul Normal 0.0-0.1 [facility] Comment on above: Performed By: #### C BC ####[facility] Mtgxvmuytg8229[address] [place], [place] [address]Dr. Arnoldo Brandon Basophils/100 WBC (Bld) 0.2 % Normal 0.2-2.0 [facility] Comment on above: Performed By: #### C BC ####[facility] Yrhanehpjs7766[address] [place], [place] [address]Dr. Arnoldo Taylor EO # 0.2 103/ul Normal 0.0-0.7 [facility] Comment on above: Performed By: #### C BC ####[facility] Bvoydeqscz5356 [place] [address]Dr. Arnoldo Taylor Eosinophils/100 WBC (Bld) 3.6 % Normal 0.9-7.0 [facility] Comment on above: Performed By: #### C BC ####[facility] Cvlcjimsui969[address] [place], [place] [address]Dr. Arnoldo Taylor Erythrocyte distribution width (RBC) [Ratio] 14.0 % Normal 11.0-15.0 [facility] Comment on above: Performed By: #### C BC ####[facility] Svrjcspnmg437[address] [place], [place] [address]Dr. Arnoldo Taylor Hematocrit (Bld) [Volume fraction] 31.9 % Critically low 36.0-48.0 [facility] Comment on above: Performed By: #### C BC ####[facility] Vlboatkgro9166[address] [place], [place] [address]Dr. Arnoldo Taylor Hemoglobin (Bld) [Mass/Vol] 10.1 g/dL Critically low 12.0-16.0 [facility] Comment on above: Performed By: #### C BC ####[facility] Tlaceghlte5329[address] [place], [place] [address]Dr. Arnoldo Taylor IG # 0.01 10e3/ul Normal 0.00-0.03 [facility] Comment on above: Performed By: #### C BC ####[facility] Isnarzzwcc4997[address] [place], [place] [address]Dr. Arnoldo Taylor IG % 0.2 % Normal 0.0-0.5 [facility] Comment on above: Performed By: #### C BC ####[facility] Uxhojhfzuq7368[address] [place], [place] [address]Dr. Arnoldo Taylor LYMPH # 2.1 103/ul Normal 1.2-3.8 [facility] Comment on above: Performed By: #### C BC ####[facility] Ipjmvtzoqk036[address] [place], [place] [address]Dr. Arnoldo Taylor Lymphocytes/100 WBC (Bld) 39.1 % Normal 20.5-60.0 [facility] Comment on above: Performed By: #### C BC ####[facility] Ifxyhoalfx9335 [place] [phone]. Arnoldo Taylor MANUAL DIFF REQ NO Normal [facility] Comment on above: Performed By: #### C BC ####[facility] Ndobgydthw0454 [place] [phone]. Arnoldo Taylor MCH (RBC) [Entitic mass] 30.4 pg Normal 26.7-34.0 [facility] Comment on above: Performed By: #### C BC ####[facility] Wlgtuhjuny5309 [place] [phone]. Arnoldo Taylor MCHC (RBC) [Mass/Vol] 31.7 g/dL Normal 29.9-35.2 [facility] Comment on above: Performed By: #### C BC ####[facility] Gieonnscrt5730 [place] [address]Dr. Arnoldo Taylor MCV (RBC) [Entitic vol] 96.1 fL Normal 81.0-99.0 [facility] Comment on above: Performed By: #### C BC ####[facility] Xqfplzporo[address] [place], [place] [address]Dr. Arnoldo Taylor MONO # 0.9 103/ul Critically high 0.3-0.8 [facility] Comment on above: Performed By: #### C BC ####[facility] Jebezychnh[address]42[address] [place], [place] [address]Dr. Arnoldo Taylor Monocytes/100 WBC (Bld) 16.8 % Critically high 1.7-12.0 [facility] Comment on above: Performed By: #### C BC ####[facility] Buiguckqqq0186 [place] [id number]. Arnoldo Taylor NEUT # 2.1 103/ul Normal 1.4-6.5 [facility] Comment on above: Performed By: #### C BC ####[facility] Tjkzhsjobn[address] [place], [place] [phone]. Arnoldo Taylor Neutrophils/100 WBC (Bld) 40.1 % Critically low 43.0-75.0 [facility] Comment on above: Performed By: #### C BC ####[facility] Xwbowcgwoa8911 [place] [id number]. Arnoldo Taylor Platelet mean volume (Bld) [Entitic vol] 9.7 fL Normal 9.5-13.5 [facility] Comment on above: Performed By: #### C BC ####[facility] Mphcgejlno8714 [place] [id number]. Arnoldo Taylor PLT 115 103/ul Critically low 150-450 [facility] Comment on above: Performed By: #### C BC ####[facility] Ajpgdewbde5645 [place] [id number]. Arnoldo Taylor RBC 3.32 106/ul Critically low 4.20-5.40 [facility] Comment on above: Performed By: #### C BC ####[facility] Abdppedqxe1399 [place] [id number]. Arnoldo Taylor WBC 5.2 103/ul Normal 4.0-11.0 [facility] Comment on above: Performed By: #### C BC ####[facility] Rhermrluat9592 [place] [id number]. Arnoldo Taylor Basophils/100 WBC (Bld) 0.0 % Critically low 0.2-2.0 [facility] Comment on above: Performed By: #### C BC ####[facility] Tghwsxpfhh8946 [place] [id number]. Arnoldo Taylor Eosinophils/100 WBC (Bld) 4.5 % Normal 0.9-7.0 [facility] Comment on above: Performed By: #### C BC ####[facility] Aqmxrejwxv9125 [place] [id number]. Arnoldo Taylor Erythrocyte distribution width (RBC) [Ratio] 13.8 % Normal 11.0-15.0 [facility] Comment on above: Performed By: #### C BC ####[facility] Rjcqtjnjkz5377 [place] [id number]. Arnoldo Taylor Hematocrit (Bld) [Volume fraction] 30.5 % Critically low 36.0-48.0 [facility] Comment on above: Performed By: #### C BC ####[facility] Ouvcqtspeb1801 [place] [id number]. Arnoldo Taylor Hemoglobin (Bld) [Mass/Vol] 9.8 g/dL Critically low 12.0-16.0 [facility] Comment on above: Performed By: #### C BC ####[facility] Hgspltdcdh2153 [place] [id number]. Arnoldo Taylor IG # 0.00 10e3/ul Normal 0.00-0.03 [facility] Comment on above: Performed By: #### C BC ####[facility] Fkytzpsvpb4110 [place] [id number]. Arnoldo Taylor IG % 0.0 % Normal 0.0-0.5 [facility] Comment on above: Performed By: #### C BC ####[facility] Yfmybpcnoj1597 [place] [address]Dr. Arnoldo Taylor LYMPH # 1.8 103/ul Normal 1.2-3.8 [facility] Comment on above: Performed By: #### C BC ####[facility] Nugcqkfood9877 [place] [id number]. Arnoldo Taylor Lymphocytes/100 WBC (Bld) 41.3 % Normal 20.5-60.0 [facility] Comment on above: Performed By: #### C BC ####[facility] Grhsujnctd7240 [place] [phone]. Arnoldo Taylor MCH (RBC) [Entitic mass] 30.8 pg Normal 26.7-34.0 [facility] Comment on above: Performed By: #### C BC ####[facility] Omsdjqnama2468 [place] [phone]. Arnoldo Taylor MCHC (RBC) [Mass/Vol] 32.1 g/dL Normal 29.9-35.2 [facility] Comment on above: Performed By: #### C BC ####[facility] Xenedcuotb9297 [place] [phone] Arnoldo Taylor MCV (RBC) [Entitic vol] 95.9 fL Normal 81.0-99.0 [facility] Comment on above: Performed By: #### C BC ####[facility] Azgqbodxqm1141 [place] [id number]. Arnoldo Taylor MONO # 0.7 103/ul Normal 0.3-0.8 [facility] Comment on above: Performed By: #### C BC ####[facility] Kwowwosurm0121 [place] [phone]. Arnoldo Taylor Monocytes/100 WBC (Bld) 16.3 % Critically high 1.7-12.0 [facility] Comment on above: Performed By: #### C BC ####[facility] Ycrwhprzyf7048 [place] [address]Dr. Arnoldo Taylor NEUT # 1.7 103/ul Normal 1.4-6.5 [facility] Comment on above: Performed By: #### C BC ####[facility] Zguqinlfri4103 [place] [address]Dr. Arnoldo Taylor Neutrophils/100 WBC (Bld) 37.9 % Critically low 43.0-75.0 [facility] Comment on above: Performed By: #### C BC ####[facility] Qsqebnelua3452 [place] [address]Dr. Arnoldo Taylor Platelet mean volume (Bld) [Entitic vol] 9.4 fL Critically low 9.5-13.5 [facility] Comment on above: Performed By: #### C BC ####[facility] Zcdfaadylb0762 [place] [phone]. Arnoldo Taylor PLT 94 103/ul Critically low 150-450 [facility] Comment on above: Performed By: #### C BC ####[facility] Izujrfdfev2654 [place] [phone]. Lynettesujata Taylor RBC 3.18 106/ul Critically low 4.20-5.40 [facility] Comment on above: Performed By: #### C BC ####[facility] Cpgopltzle3739 [place] [phone]. Arnoldo Brandon WBC 4.4 103/ul Normal 4.0-11.0 [facility] Comment on above: Performed By: #### C BC ####[facility] Dckjndnmqv5735 [place] [address]DrTye Taylor PROF 14(COMP METB)on 022 Albumin [Mass/Vol] 2.4 g/dL Critically low 3.4-5.0 [facility] Comment on above: Performed By: #### C MP ####[facility] Sidfgqsywt1616 [place] [address]DrTye Taylor Albumin/Globulin [Mass ratio] 0.7 {ratio} Normal [facility] Comment on above: Performed By: #### C MP ####[facility] Gxqhzalwyc6298 [place] [address]Dr. Arnoldo Taylor ALP [Catalytic activity/Vol] 113 U/L Normal 46-116 [facility] Comment on above: Performed By: #### C MP ####[facility] Mmwlktceqc60[address] [place], [place] [address]Dr. Arnoldo Taylor ALT [Catalytic activity/Vol] 21 U/L Normal 14-59 [facility] Comment on above: Performed By: #### C MP ####[facility] Zaiixazpzd1580 [place] [address]Dr. Arnoldo Taylor Anion gap [Moles/Vol] 8.8 mmol/L Normal [facility] Comment on above: Performed By: #### C MP ####[facility] Pccgarzwmv2234 [place] [address]Dr. Arnoldo Taylor AST [Catalytic activity/Vol] 31 U/L Normal 15-37 [facility] Comment on above: Performed By: #### C MP ####[facility] Ynwdktqlsh3892 [place] [address]DrTye Taylor Bilirubin [Mass/Vol] 0.2 mg/dL Normal 0.2-1.0 [facility] Comment on above: Performed By: #### C MP ####[facility] Bhdyyvqljo0644 [place] [address]DrTye Taylor Calcium [Mass/Vol] 8.2 mg/dL Critically low 8.5-10.1 [facility] Comment on above: Performed By: #### C MP ####[facility] Qlzxadvrct6731 [place] [address]Dr. Arnoldo Taylor Chloride [Moles/Vol] 108 mmol/L Critically high 98-107 [facility] Comment on above: Performed By: #### C MP ####[facility] Tudnibsxzo4483 [place] [address]Dr. Arnoldo Taylor CO2 [Moles/Vol] 26.8 mmol/L Normal 21.0-32.0 [facility] Comment on above: Performed By: #### C MP ####[facility] Ypiumlvxyw3229 [place] [address]Dr. Arnoldo Taylor Creatinine [Mass/Vol] 0.94 mg/dL Normal 0.55-1.02 [facility] Comment on above: Performed By: #### C MP ####[facility] Jrzqpcinwx0964 [place] [address]Dr. Arnoldo Taylor EGFR-AF BURKINAN >60 Normal >=60 [facility] Comment on above: Performed By: #### C MP ####[facility] Nwdgxycsha5098 [place] [address]Dr. Arnoldo Taylor EGFR-NON AF BURKINAN 57 mL/min/1.73m2 Critically low >=60 [facility] Comment on above: Performed By: #### C MP ####[facility] Sgunpapmpg7855 [place] [address]Dr. Arnoldo Taylor Globulin (S) [Mass/Vol] 3.3 g/dL Normal [facility] Comment on above: Performed By: #### C MP ####[facility] Dqoxsnzcfz6467 [place] [address]Dr. Arnoldo Taylro Glucose [Mass/Vol] 106 mg/dL Normal 74-106 [facility] Comment on above: Performed By: #### C MP ####[facility] Sjnrsloywt5418 [place] [address]Dr. Lynettesujata Brandon Potassium [Moles/Vol] 3.6 mmol/L Normal 3.5-5.1 [facility] Comment on above: Performed By: #### C MP ####[facility] Iclzvfgdaa0965 [place] [phone]. Arnoldo Taylor Protein [Mass/Vol] 5.7 g/dL Critically low 6.4-8.2 [facility] Comment on above: Performed By: #### C MP ####[facility] Rdlhjkyvqo5528 [place] [phone]. Arnoldo Taylor Sodium [Moles/Vol] 140 mmol/L Normal 136-145 [facility] Comment on above: Performed By: #### C MP ####[facility] Msbtcrsohf399[address] [place], [place] [address]Dr. Arnoldo Taylor Urea nitrogen [Mass/Vol] 13.0 mg/dL Normal 7.0-18.0 [facility] Comment on above: Performed By: #### C MP ####[facility] Vejmkbkxxw5912[address] [place], [place] [address]Dr. Arnoldo Taylor Urea nitrogen/Creatinine [Mass ratio] 13.8 mg/mg Normal [facility] Comment on above: Performed By: #### C MP ####[facility] Lhanxgqqjm925[address] [place], [place] [phone]. Arnoldo Taylor CBC AUTO DIFFon 01-10-2022 BASO # 0.0 103/ul Normal 0.0-0.1 [facility] Comment on above: Performed By: #### C BC ####[facility] Qozuertmzb9633[address] [place], [place] [address]Dr. Arnoldo Taylor Basophils/100 WBC (Bld) 0.1 % Critically low 0.2-2.0 [facility] Comment on above: Performed By: #### C BC ####[facility] Usqourkntu354[address] [place], [place] [phone]. Arnoldo Taylor EO # 0.1 103/ul Normal 0.0-0.7 [facility] Comment on above: Performed By: #### C BC ####[facility] Uhhdlhcbkp0147[address] [place], [place] [phone]. Arnoldo Brandon Eosinophils/100 WBC (Bld) 1.6 % Normal 0.9-7.0 [facility] Comment on above: Performed By: #### C BC ####[facility] Eryntmmmag5419 [place] [address]Dr. Arnoldo Brandon Erythrocyte distribution width (RBC) [Ratio] 13.2 % Normal 11.0-15.0 [facility] Comment on above: Performed By: #### C BC ####[facility] Ugutfymdkn6268 [place] [address]Dr. Arnoldo Taylor Hematocrit (Bld) [Volume fraction] 35.4 % Critically low 36.0-48.0 [facility] Comment on above: Performed By: #### C BC ####[facility] Zdbcmhgbul7059[address] [place], [place] [address]Dr. Arnoldo Taylor Hemoglobin (Bld) [Mass/Vol] 11.6 g/dL Critically low 12.0-16.0 [facility] Comment on above: Performed By: #### C BC ####[facility] Cybvzogdeg4565[address] [place], [place] [address]Dr. Arnoldo Taylor IG # 0.08 10e3/ul Critically high 0.00-0.03 [facility] Comment on above: Performed By: #### C BC ####[facility] Tpbpmfaslt099[address] [place], [place] [address]Dr. Arnoldo Taylor IG % 1.2 % Critically high 0.0-0.5 [facility] Comment on above: Performed By: #### C BC ####[facility] Ezwnryiqrp5354[address] [place], [place] [address]Dr. Arnoldo Taylor LYMPH # 1.8 103/ul Normal 1.2-3.8 [facility] Comment on above: Performed By: #### C BC ####[facility] Cfimsifbdz1362[address] [place], [place] [address]Dr. Arnoldo Taylor Lymphocytes/100 WBC (Bld) 26.6 % Normal 20.5-60.0 [facility] Comment on above: Performed By: #### C BC ####[facility] Gnkemshait8915[address] [place], [place] [address]Dr. Arnoldo Taylor MANUAL DIFF REQ NO Normal [facility] Comment on above: Performed By: #### C BC ####[facility] Isjpkhxpsa9977 [place] [address]Dr. Arnoldo Taylor MCH (RBC) [Entitic mass] 30.5 pg Normal 26.7-34.0 [facility] Comment on above: Performed By: #### C BC ####[facility] Dcplavnaux2451 [place] [address]Dr. Arnoldo Taylor MCHC (RBC) [Mass/Vol] 32.8 g/dL Normal 29.9-35.2 [facility] Comment on above: Performed By: #### C BC ####[facility] Ufxzqyqzho9[address] [place], [place] [address]Dr. Arnoldo Taylor MCV (RBC) [Entitic vol] 93.2 fL Normal 81.0-99.0 [facility] Comment on above: Performed By: #### C BC ####[facility] Bfkvwdihhy37[address] [place], [place] [address]DrTye Taylor MONO # 0.9 103/ul Critically high 0.3-0.8 [facility] Comment on above: Performed By: #### C BC ####[facility] Ueeftdytot5[address] [place], [place] [address]DrTye Taylor Monocytes/100 WBC (Bld) 13.6 % Critically high 1.7-12.0 [facility] Comment on above: Performed By: #### C BC ####[facility] Nebjxdxmwf1086[address] [place], [place] [address]DrTye Taylor NEUT # 3.8 103/ul Normal 1.4-6.5 [facility] Comment on above: Performed By: #### C BC ####[facility] Qoqpwfuqnl5723[address] [place], [place] [address]DrTye Taylor Neutrophils/100 WBC (Bld) 56.9 % Normal 43.0-75.0 [facility] Comment on above: Performed By: #### C BC ####[facility] Hnrkrbwzbw066[address] [place], [place] [address]DrTye Taylor Platelet mean volume (Bld) [Entitic vol] 10.0 fL Normal 9.5-13.5 [facility] Comment on above: Performed By: #### C BC ####[facility] Cjaeifzqbl8927 [place] [address]Dr. Arnoldo Taylor PLT 128 103/ul Critically low 150-450 [facility] Comment on above: Performed By: #### C BC ####[facility] Ekuotzvrni4058 [place] [phone]. Arnoldo Taylor RBC 3.80 106/ul Critically low 4.20-5.40 [facility] Comment on above: Performed By: #### C BC ####[facility] Ndmwtobjla2420 [place] [address]Dr. Arnoldo Taylor WBC 6.7 103/ul Normal 4.0-11.0 [facility] Comment on above: Performed By: #### C BC ####[facility] Ffgaeplldo9988 [place] [address]Dr. Arnoldo Talyor CT HEAD WO CONon 01-10-2022 CT HEAD WO CON Normal [facility] CULTURE URINEon 01-10-2022 CULTURE URINE Culture Observations : LIGHT GROWTH OF MIXED GENITAL ZAYRA. NO POTENTIAL PATHOGENS SEEN. Normal [facility] Comment on above: Performed By: #### U RCX ####[facility] Laocodnwsf5203[address] [place], [place] [address]Dr. Arnoldo Brandon ER URINE PROFILEon 2 Bilirubin Ql (U) Negative Normal NEGATIVE [facility] Comment on above: Performed By: #### CHARLY WRIGHTRO ####[facility] Qftmkvyvbv7066 [place] [phone]. Arnoldo Taylor Clarity (U) CLEAR Normal CLEAR [facility] Comment on above: Performed By: #### CHARLY WRIGHTRO ####[facility] Zrsryyvoze2831 [place] [phone]. Arnoldo Taylor Color (U) LT. YELLOW Normal YELLOW [facility] Comment on above: Performed By: #### CHARLY WRIGHTRO ####[facility] Twifxrtkqt3264[address] [place], [place] [address]Dr. Arnoldo SIMMONS A micrscopic examination will be performed if indicated. Normal [facility] Comment on above: Performed By: #### JESSICA WRIGHT ####[facility] Egyyxwfydu158[address] [place], [place] [address]Dr. Arnoldo Taylor Glucose Ql (U) Negative Normal NEGATIVE [facility] Comment on above: Performed By: #### JESSICA WRIGHT ####[facility] Kkmzroeylr7436[address] [place], [place] [address]Dr. Arnoldo Taylor Hemoglobin Ql (U) TRACE-INTACT Abnormal NEGATIVE [facility] Comment on above: Performed By: #### JESSICA WRIGHT ####[facility] Axygsteszu224[address] [place], [place] [address]Dr. Arnoldo Taylor Ketones Ql (U) 15 mg/dl Abnormal NEGATIVE [facility] Comment on above: Performed By: #### JESSICA WRIGHT ####[facility] Qdpnowzxwm360[address] [place], [place] [address]Dr. Arnoldo Taylor LEUKOCYTES SMALL Abnormal NEGATIVE [facility] Comment on above: Performed By: #### JESSICA WRIGHT ####[facility] Vjgrtimpkm7337[address] [place], [place] [address]Dr. Arnoldo Taylor Nitrite Ql (U) Negative Normal NEGATIVE [facility] Comment on above: Performed By: #### JESSICA WRIGHT ####[facility] Sgyhzdopbu7518[address] [place], [place] [address]Dr. Arnoldo Taylor pH (U) 8.5 [pH] Normal 5-9 [facility] Comment on above: Performed By: #### JESSICA WRIGHT ####[facility] Ljjuzwktvc619[address] [place], [place] [address]Dr. Arnoldo Taylor SPEC GRAVITY 1.015 Normal 1.005-<=1.025 [facility] Comment on above: Performed By: #### JESSICA WRIGHT ####[facility] Wmiitjwvmh12[address] [place], [place] [address]Dr. Arnoldo Taylor UA PROTEIN Negative Normal NEGATIVE/ TRACE [facility] Comment on above: Performed By: #### E JACEK UMICRO ####[facility] Lbbtkzuunz5877 [place] [address]Dr. Arnoldo Taylor UR MICRO IND INDICATED Normal [facility] Comment on above: Performed By: #### E JACEK UMICRO ####[facility] Nsbgywkgil5888 [place] [address]Dr. Arnoldo Taylor Urobilinogen Qn (U) 0.2 {Adrienne'U}/dL Normal 0.2 - 1. 0 [facility] Comment on above: Performed By: #### CHARLY WRIGHTRO ####[facility] Vxgwxmrjvc35[address] [place], [place] [address]Dr. Arnoldo Taylor LACTATE/LACTIC ACIDon 2021 Lactate [Moles/Vol] 2.1 mmol/L Critically high 0.4-1.9 [facility] Comment on above: Performed By: #### L ACT ####[facility] Vzwkgcghfh9060 [place] [address]Dr. Arnoldo Taylor Lactate [Moles/Vol] 1.0 mmol/L Normal 0.4-1.9 [facility] Comment on above: Performed By: #### L ACT ####[facility] Jlwqizkuns67[address] [place], [place] [address]Dr. Arnoldo Taylor PROF 14(COMP METB)on 022 Albumin [Mass/Vol] 2.8 g/dL Critically low 3.4-5.0 [facility] Comment on above: Performed By: #### C MP ####[facility] Ciggmgundh1141 [place] [address]Dr. Arnoldo Taylor Albumin/Globulin [Mass ratio] 0.8 {ratio} Normal [facility] Comment on above: Performed By: #### C MP ####[facility] Kxlnjnxcii0594[address] [place], [place] [address]Dr. Arnoldo Taylor ALP [Catalytic activity/Vol] 133 U/L Critically high 46-116 [facility] Comment on above: Performed By: #### C MP ####[facility] Mzijcdwfoz2427 [place] [phone]. Arnoldo Taylor ALT [Catalytic activity/Vol] 21 U/L Normal 14-59 [facility] Comment on above: Performed By: #### C MP ####[facility] Mhwtvriyud8801 [place] [phone]. Arnoldo Taylor Anion gap [Moles/Vol] 12.9 mmol/L Normal [facility] Comment on above: Performed By: #### C MP ####[facility] Ujhwbkjeag5601 [place] [phone]. Arnoldo Taylor AST [Catalytic activity/Vol] 22 U/L Normal 15-37 [facility] Comment on above: Performed By: #### C MP ####[facility] Nccmjsgajh1382 [place] [address]Dr. Arnoldo Taylor Bilirubin [Mass/Vol] 0.5 mg/dL Normal 0.2-1.0 [facility] Comment on above: Performed By: #### C MP ####[facility] Irufldmurw1531 [place] [phone]. Arnoldo Taylor Calcium [Mass/Vol] 8.7 mg/dL Normal 8.5-10.1 [facility] Comment on above: Performed By: #### C MP ####[facility] Nvgduxxied8193 [place] [phone]. Arnoldo Taylor Chloride [Moles/Vol] 105 mmol/L Normal 98-107 [facility] Comment on above: Performed By: #### C MP ####[facility] Geztpxirzv1772 [place] [address]Dr. Arnoldo Taylor CO2 [Moles/Vol] 26.5 mmol/L Normal 21.0-32.0 [facility] Comment on above: Performed By: #### C MP ####[facility] Nzjhflozix7489 [place] [phone]. Arnoldo Taylor Creatinine [Mass/Vol] 1.06 mg/dL Critically high 0.55-1.02 [facility] Comment on above: Performed By: #### C MP ####[facility] Xeowlccjfh6793 [place] [phone]. Arnoldo Taylor EGFR-AF BURKINAN >60 Normal >=60 [facility] Comment on above: Performed By: #### C MP ####[facility] Jqvvhzgxfk6521 [place] [address]Dr. Arnoldo Taylor EGFR-NON AF BURKINAN 50 mL/min/1.73m2 Critically low >=60 [facility] Comment on above: Performed By: #### C MP ####[facility] Aauozajwqt6368 [place] [address]Dr. Arnoldo Taylor Globulin (S) [Mass/Vol] 3.7 g/dL Normal [facility] Comment on above: Performed By: #### C MP ####[facility] Saufvmovvg[address] [place], [place] [address]Dr. Arnoldo Taylor Glucose [Mass/Vol] 110 mg/dL Critically high 74-106 [facility] Comment on above: Performed By: #### C MP ####[facility] Ddiytpvgsu60[address] [place], [place] [address]Dr. Arnoldo Taylor Potassium [Moles/Vol] 3.4 mmol/L Critically low 3.5-5.1 [facility] Comment on above: Performed By: #### C MP ####[facility] Cfuzhkvivn838[address] [place], [place] [address]Dr. Arnoldo Taylor Protein [Mass/Vol] 6.5 g/dL Normal 6.4-8.2 [facility] Comment on above: Performed By: #### C MP ####[facility] Fndujhbzvn4142[address] [place], [place] [address]Dr. Arnoldo Taylor Sodium [Moles/Vol] 141 mmol/L Normal 136-145 [facility] Comment on above: Performed By: #### C MP ####[facility] Uzgghswhph965[address] [place], [place] [address]Dr. Arnoldo Taylor Urea nitrogen [Mass/Vol] 22.0 mg/dL Critically high 7.0-18.0 [facility] Comment on above: Performed By: #### C MP ####[facility] Erhzooiuet3997 [place] [address]Dr. Arnoldo Taylor Urea nitrogen/Creatinine [Mass ratio] 20.8 mg/mg Normal [facility] Comment on above: Performed By: #### C MP ####[facility] Vnxrhqvddt4[address] [place], [place] [address]Dr. Arnoldo Taylor URINE MICROSCOPIC ONLYon BACTERIA TRACE Abnormal NONE SEEN [facility] Comment on above: Performed By: #### CHARLY WRIGHTRO ####[facility] Lytcqxioez11[address] [place], [place] [address]Dr. Arnoldo Taylor Bacteria identified Cx Nom (U) INDICATED Normal [facility] Comment on above: Performed By: #### JESSICA WRIGHT ####[facility] Cpnhqbkhfn[address] [place], [place] [address]Dr. Arnoldo Taylor CAST NONE SEEN Normal NONE SEEN [facility] Comment on above: Performed By: #### JESSICA WRIGHT ####[facility] Qonivhehqp585[address] [place], [place] [address]Dr. Arnoldo Taylor Crystals LM Nom (Urine sed) NONE SEEN Normal NONE SEEN [facility] Comment on above: Performed By: #### JESSICA WRIGHT ####[facility] Pjdsanwvcd9[address] [place], [place] [address]Dr. Arnoldo Taylor Epithelial cells LM Ql (Urine sed) RARE Normal NONE SEEN /RARE [facility] Comment on above: Performed By: #### JESSICA WRIGHT ####[facility] Tlcvxmxcql13[address] [place], [place] [address]Dr. Arnoldo Taylor MUCOUS NONE SEEN Normal NONE SEEN [facility] Comment on above: Performed By: #### CHARLY WRIGHTRO ####[facility] Ttxptmrnjy7[address] [place], [place] [address]Dr. Arnoldo Taylor RBC 0-2 Normal 0-2 [facility] Comment on above: Performed By: #### CHARLY WRIGHTRO ####[facility] Kdaclpkaum33[address] [place], [place] [address]Dr. Arnoldo Taylor WBC 5-10 Abnormal NONE SEEN [facility] [place] Comment on above: Performed By: #### E JESSICA READ ####[facility] Ywtyyxknyv6[address] [place] [id number]. Arnoldo Taylor XR CHEST 1 Von 01-10-2022 XR CHEST 1 V Normal [facility] CBC AUTO DIFFon 01-09-2022 BASO # 0.0 103/ul Normal 0.0-0.1 [facility] Comment on above: Performed By: #### C BC ####[facility] Oxayzbtyim[address] [place] [address]Dr. Lynettesujata Taylor Basophils/100 WBC (Bld) 0.1 % Critically low 0.2-2.0 [facility] Comment on above: Performed By: #### C BC ####[facility] Cwbmfkmc[address] [place], [place] [address]Dr. Arnoldo Brandon EO # 0.1 103/ul Normal 0.0-0.7 [facility] Comment on above: Performed By: #### C BC ####[facility] Niphhkvipp[address] [place], [place] [address]Dr. Lynettesujata Taylor Eosinophils/100 WBC (Bld) 1.2 % Normal 0.9-7.0 [facility] Comment on above: Performed By: #### C BC ####[facility] Zfrshghlgj04[address] [place] [address]Dr. Arnoldo Taylor Erythrocyte distribution width (RBC) [Ratio] 13.2 % Normal 11.0-15.0 [facility] Comment on above: Performed By: #### C BC ####[facility] Frepdtcgzh26[address] [place] [address]Dr. Arnoldo Taylor Hematocrit (Bld) [Volume fraction] 38.0 % Normal 36.0-48.0 [facility] Comment on above: Performed By: #### C BC ####[facility] Qqurbutnab[address] [place], [place] [address]Dr. Arnoldo Taylor Hemoglobin (Bld) [Mass/Vol] 12.4 g/dL Normal 12.0-16.0 [facility] Comment on above: Performed By: #### C BC ####[facility] Kklzxsxmxf[address] [place] [phone]. Arnoldo Taylor IG # 0.03 10e3/ul Normal 0.00-0.03 [facility] Comment on above: Performed By: #### C BC ####[facility] Cozlenbtpk29[address] [place] [address]Dr. Arnoldo Taylor IG % 0.4 % Normal 0.0-0.5 [facility] Comment on above: Performed By: #### C BC ####[facility] Wuwpictwvu9243 [place] [address]Dr. Arnoldo Brandon LYMPH # 2.1 103/ul Normal 1.2-3.8 [facility] Comment on above: Performed By: #### C BC ####[facility] Xzzvhcnjrw1644 [place] [address]Dr. Arnoldo Taylor Lymphocytes/100 WBC (Bld) 25.8 % Normal 20.5-60.0 [facility] Comment on above: Performed By: #### C BC ####[facility] Dfhiypoavb1545 [place] [address]Dr. Lynettesujata Taylor MANUAL DIFF REQ NO Normal [facility] Comment on above: Performed By: #### C BC ####[facility] Pbwjcvzkvl1576 [place] [address]Dr. Arnoldo Taylor MCH (RBC) [Entitic mass] 30.8 pg Normal 26.7-34.0 [facility] Comment on above: Performed By: #### C BC ####[facility] Aouxwkxjzo6133 [place] [address]Dr. Arnoldo Taylor MCHC (RBC) [Mass/Vol] 32.6 g/dL Normal 29.9-35.2 [facility] Comment on above: Performed By: #### C BC ####[facility] Qwwecklplv6753 [place] [address]Dr. Arnoldo Taylor MCV (RBC) [Entitic vol] 94.5 fL Normal 81.0-99.0 [facility] Comment on above: Performed By: #### C BC ####[facility] [address] [place] [address]Ub. Arnoldo Taylor MONO # 0.8 103/ul Normal 0.3-0.8 [facility] Comment on above: Performed By: #### C BC ####[facility] Baboqcodwv9[address] [place] [address]Dr. Arnoldo Taylor Monocytes/100 WBC (Bld) 10.0 % Normal 1.7-12.0 [facility] Comment on above: Performed By: #### C BC ####[facility] Tcmxsoiqku[address] [place], [place] [address]Dr. Arnoldo Taylor NEUT # 5.0 103/ul Normal 1.4-6.5 [facility] Comment on above: Performed By: #### C BC ####[facility] Diinwnekji20[address] [place], [place] [address]Dr. Arnoldo Taylor Neutrophils/100 WBC (Bld) 62.5 % Normal 43.0-75.0 [facility] Comment on above: Performed By: #### C BC ####[facility] Hkjibwsvvb[address] [place], [place] [address]Dr. Arnoldo Taylor Platelet mean volume (Bld) [Entitic vol] 9.9 fL Normal 9.5-13.5 [facility] Comment on above: Performed By: #### C BC ####[facility] Wenqvxunzr3550 [place] [address]Dr. Arnoldo Taylor PLT 149 103/ul Critically low 150-450 [facility] Comment on above: Performed By: #### C BC ####[facility] Ftguwbeqmv6[address] [place] [phone]. Arnoldo Taylor RBC 4.02 106/ul Critically low 4.20-5.40 [facility] Comment on above: Performed By: #### C BC ####[facility] Lhheisrccz[address] [place], [place] [id number]. Arnoldo Taylor WBC 8.1 103/ul Normal 4.0-11.0 [facility] Comment on above: Performed By: #### C BC ####[facility] V[address]jzixuqr[address] [place], [place] [address]Dr. Arnoldo Tyalor CULTURE BLOODon 01-09-2022 Microscopic examination of blood, culture Culture Observations: NO GROWTH AT 5 DAYS. Normal [facility] Comment on above: Performed By: #### B LDCX1 ####[facility] Kmyudpxnrk[address] [place] [address]Dr. Arnoldo Taylor Covid-19 PCR (CVDTB)on 12-31 SARS-CoV-2 (COVID-19) RNA JAMMIE+probe Ql (Unsp spec) Not detected Normal NOT DETECTED [facility] Comment on above: Result Comment: When diagnostic testing is negative, the possibility of a false negative should be considered inthe context of a patient's recent exposures and the presence of clinical signs and symptomsconsistent with SARS-CoV-2.This test is not yet approved or cleared by the [place] FDA. When there are no FDA-approved or cleared tests available, and other criteria are met, FDA can make tests available under an emergency access mechanism called an Emergency Use Authorization (EUA). The EUA for this test is supported by the [place] of Health and Human Service's declaration that circumstances exist to justify the emergency use of in vitro diagnostics for the detection and/or diagnosis of the virus that causes COVID-19. This EUA will remain in effect for the duration of the COVID-19 declaration justifying emergency of IVDs, unless it is terminated or revoked by the FDA (after which the test may no longer be used). Performed By: #### C VDTBH ####[facility] Emvpvjcjgb9[address] [place] [address]Dr. Arnoldo Taylor LACTATE/LACTIC ACIDon 2021 Lactate [Moles/Vol] 2.1 mmol/L Critically high 0.4-1.9 [facility] Comment on above: Performed By: #### L ACT ####[facility] Put[address]whzr[address] [place], [place] [address]DrTye Arnoldo Taylor PROF 14(COMP METB)on 022 Albumin [Mass/Vol] 3.1 g/dL Critically low 3.4-5.0 [facility] Comment on above: Performed By: #### C MP ####[facility] Qzgfoeqzjr8678 [place] [address]Dr. Arnoldo Brandon Albumin/Globulin [Mass ratio] 0.8 {ratio} Normal [facility] Comment on above: Performed By: #### C MP ####[facility] Anexnknfdd[address] [place], [place] [address]Dr. Arnoldo Brandon ALP [Catalytic activity/Vol] 146 U/L Critically high 46-116 [facility] Comment on above: Performed By: #### C MP ####[facility] Isjsqvrytr7[address] [place], [place] [address]Dr. Arnoldo Brandon ALT [Catalytic activity/Vol] 20 U/L Normal 14-59 [facility] Comment on above: Performed By: #### C MP ####[facility] Znnivupvwq11[address] [place], [place] [address]Dr. Arnoldo Taylor Anion gap [Moles/Vol] 13.7 mmol/L Normal [facility] Comment on above: Performed By: #### C MP ####[facility] Jjuqyzqili8[address] [place], [place] [address]Dr. Arnoldo Brandon AST [Catalytic activity/Vol] 22 U/L Normal 15-37 [facility] Comment on above: Performed By: #### C MP ####[facility] Stiwzwejav7[address] [place], [place] [address]Dr. Arnoldo Taylor Bilirubin [Mass/Vol] 0.4 mg/dL Normal 0.2-1.0 [facility] Comment on above: Performed By: #### C MP ####[facility] Tnnmcnqleh[address] [place], [place] [address]Dr. Arnoldo Taylor Calcium [Mass/Vol] 9.2 mg/dL Normal 8.5-10.1 [facility] Comment on above: Performed By: #### C MP ####[facility] Nbwinhxyum[address] [place], [place] [address]Dr. Arnoldo Taylor Chloride [Moles/Vol] 103 mmol/L Normal 98-107 [facility] Comment on above: Performed By: #### C MP ####[facility] Kxiieuyyyg[address] [place], [place] [address]Dr. Arnoldo Taylor CO2 [Moles/Vol] 28.1 mmol/L Normal 21.0-32.0 [facility] Comment on above: Performed By: #### C MP ####[facility] Knnmxibuiw60[address] [place] [address]Dr. Arnoldo Brandon Creatinine [Mass/Vol] 1.19 mg/dL Critically high 0.55-1.02 [facility] Comment on above: Performed By: #### C MP ####[facility] [address]zvzdogphy[address] [place], [place] [address]Dr. Arnoldo Brandon EGFR-AF BURKINAN 53 mL/min/1.73m2 Critically low >=60 [facility] Comment on above: Performed By: #### C MP ####[facility] [address]ybwgtipcf[address] [place], [place] [address]Dr. Arnoldo Taylor EGFR-NON AF BURKINAN 44 mL/min/1.73m2 Critically low >=60 [facility] Comment on above: Performed By: #### C MP ####[facility] Vjfmsfznku[address] [place], [place] [address]Dr. Arnoldo Taylor Globulin (S) [Mass/Vol] 3.9 g/dL Normal [facility] Comment on above: Performed By: #### C MP ####[facility] Ryvziywily[address] [place], [place] [address]Dr. Arnoldo Taylor Glucose [Mass/Vol] 119 mg/dL Critically high 74-106 [facility] Comment on above: Performed By: #### C MP ####[facility] Rmypeqkvcd[address] [place], [place] [address]Dr. Arnoldo Taylor Potassium [Moles/Vol] 3.8 mmol/L Normal 3.5-5.1 [facility] Comment on above: Performed By: #### C MP ####[facility] Uqjymcglly364[address] [place], [place] [address]Dr. Arnoldo Taylor Protein [Mass/Vol] 7.0 g/dL Normal 6.4-8.2 [facility] Comment on above: Performed By: #### C MP ####[facility] Sunometwud[address] [place], [place] [address]Dr. Arnoldo Taylor Sodium [Moles/Vol] 141 mmol/L Normal 136-145 [facility] Comment on above: Performed By: #### C MP ####[facility] Jrzblrhqtf36[address] [place], [place] [address]Dr. Arnoldo Taylor Urea nitrogen [Mass/Vol] 25.0 mg/dL Critically high 7.0-18.0 [facility] Comment on above: Performed By: #### C MP ####[facility] Dgjmfsngov5[address] [place], [place] [address]Dr. Arnoldo Taylor Urea nitrogen/Creatinine [Mass ratio] 21.0 mg/mg Normal [facility] Comment on above: Performed By: #### C MP ####[facility] Oabjisuotp[address] [place], [place] [address]Dr. Arnoldo Taylor CBC AUTO DIFFon 01-08-2022 BASO # 0.0 103/ul Normal 0.0-0.1 [facility] Comment on above: Performed By: #### C BC ####[facility] Lpcampndxl[address] [place], [place] [address]Dr. Arnoldo Brandon Basophils/100 WBC (Bld) 0.1 % Critically low 0.2-2.0 [facility] Comment on above: Performed By: #### C BC ####[facility] Szhwepowpu[address] [place], [place] [address]Dr. Arnoldo Taylor EO # 0.3 103/ul Normal 0.0-0.7 [facility] Comment on above: Performed By: #### C BC ####[facility] Byngwyoqwf64[address] [place], [place] [address]Dr. Arnoldo Brandon Eosinophils/100 WBC (Bld) 3.8 % Normal 0.9-7.0 [facility] Comment on above: Performed By: #### C BC ####[facility] Orpswobygs[address] [place], [place] [address]Dr. Arnoldo Taylor Erythrocyte distribution width (RBC) [Ratio] 13.5 % Normal 11.0-15.0 [facility] Comment on above: Performed By: #### C BC ####[facility] Yhuxxgmrgz55[address] [place] [address]Dr. Arnoldo Taylor Hematocrit (Bld) [Volume fraction] 37.5 % Normal 36.0-48.0 [facility] Comment on above: Performed By: #### C BC ####[facility] Toqbrprcml9480 [place] [address]Dr. Arnoldo Taylor Hemoglobin (Bld) [Mass/Vol] 11.7 g/dL Critically low 12.0-16.0 [facility] Comment on above: Performed By: #### C BC ####[facility] Tcixqiynrm06[address] [place] [address]Dr. Arnoldo Taylor IG # 0.01 10e3/ul Normal 0.00-0.03 [facility] Comment on above: Performed By: #### C BC ####[facility] Sixgiyyxfl9826 [place] [address]Dr. Arnoldo Taylor IG % 0.1 % Normal 0.0-0.5 [facility] Comment on above: Performed By: #### C BC ####[facility] Fowqgmblgv7[address] [place] [address]Dr. Arnoldo Brandon LYMPH # 4.1 103/ul Critically high 1.2-3.8 [facility] Comment on above: Performed By: #### C BC ####[facility] Dhjztgfgxz4926 [place] [address]Dr. Lynettesujata Taylor Lymphocytes/100 WBC (Bld) 57.4 % Normal 20.5-60.0 [facility] Comment on above: Performed By: #### C BC ####[facility] Uswmxxmbdd0273 [place] [address]DrTye Lynettesujata Taylor MANUAL DIFF REQ NO Normal [facility] Comment on above: Performed By: #### C BC ####[facility] Jgyutgujjz1192 [place] [address]DrTye Lynettesujata Taylor MCH (RBC) [Entitic mass] 30.5 pg Normal 26.7-34.0 [facility] Comment on above: Performed By: #### C BC ####[facility] [address]okjsqxkd[address] [place], [place] [address]Dr. Arnoldo Taylor MCHC (RBC) [Mass/Vol] 31.2 g/dL Normal 29.9-35.2 [facility] Comment on above: Performed By: #### C BC ####[facility] Tfispyasju79[address] [place] [phone]. Arnoldo Taylor MCV (RBC) [Entitic vol] 97.9 fL Normal 81.0-99.0 [facility] Comment on above: Performed By: #### C BC ####[facility] Nwrsimbnrb5738 [place] [address]Dr. Arnoldo Brandon MONO # 0.8 103/ul Normal 0.3-0.8 [facility] Comment on above: Performed By: #### C BC ####[facility] Mxqmgrmyvv8783 [place] [address]Dr. Lynettesujata Taylor Monocytes/100 WBC (Bld) 11.0 % Normal 1.7-12.0 [facility] Comment on above: Performed By: #### C BC ####[facility] Aezpzwvyri8109 [place] [address]Dr. Arnoldo Brandon NEUT # 2.0 103/ul Normal 1.4-6.5 [facility] Comment on above: Performed By: #### C BC ####[facility] Jmwrcfysqo0343 [place] [address]Dr. Arnoldo Brandon Neutrophils/100 WBC (Bld) 27.6 % Critically low 43.0-75.0 [facility] Comment on above: Performed By: #### C BC ####[facility] Swchruzdpw7740 [place] [address]Dr. Arnoldo Brandon Platelet mean volume (Bld) [Entitic vol] 9.9 fL Normal 9.5-13.5 [facility] Comment on above: Performed By: #### C BC ####[facility] Dsiaauvnsz8940 [place] [phone]. Arnoldo Brandon PLT 142 103/ul Critically low 150-450 [facility] Comment on above: Performed By: #### C BC ####[facility] Qcmfdwuqez8404 [place] [address]Dr. Lynettesujata Brandon RBC 3.83 106/ul Critically low 4.20-5.40 [facility] Comment on above: Performed By: #### C BC ####[facility] Ewehykpgof2818 [place] [address]Dr. Arnoldo Taylor WBC 7.2 103/ul Normal 4.0-11.0 [facility] Comment on above: Performed By: #### C BC ####[facility] Wqhlthwixd4884 [place] [address]Dr. Arnoldo Taylor PROF 14(COMP METB)on 022 Albumin [Mass/Vol] 2.5 g/dL Critically low 3.4-5.0 [facility] Comment on above: Performed By: #### C MP ####[facility] Xdxgtryhlz8[address] [place], [place] [address]Dr. Arnoldo Taylor Albumin/Globulin [Mass ratio] 0.7 {ratio} Normal [facility] Comment on above: Performed By: #### C MP ####[facility] Hiiwzzrqnt0998 [place] [address]Dr. Arnoldo Taylor ALP [Catalytic activity/Vol] 147 U/L Critically high 46-116 [facility] Comment on above: Performed By: #### C MP ####[facility] Bjzzarqteo8[address] [place], [place] [address]Dr. Arnoldo Taylor ALT [Catalytic activity/Vol] 18 U/L Normal 14-59 [facility] Comment on above: Performed By: #### C MP ####[facility] Rftplthuyl3450 [place] [address]Dr. Arnoldo Taylor Anion gap [Moles/Vol] 7.7 mmol/L Normal [facility] Comment on above: Performed By: #### C MP ####[facility] Ajnxjpfwwq7678[address] [place], [place] [address]Dr. Arnoldo Taylor AST [Catalytic activity/Vol] 17 U/L Normal 15-37 [facility] Comment on above: Performed By: #### C MP ####[facility] Ztlxaoxpts[address] [place], [place] [address]Dr. Arnoldo Brandon Bilirubin [Mass/Vol] 0.3 mg/dL Normal 0.2-1.0 [facility] Comment on above: Performed By: #### C MP ####[facility] Rphpsatvfx5532 [place] [address]Dr. Arnoldo Taylor Calcium [Mass/Vol] 8.6 mg/dL Normal 8.5-10.1 [facility] Comment on above: Performed By: #### C MP ####[facility] Obdcibbjhe9[address] [place], [place] [address]Dr. Lynettesujata Brandon Chloride [Moles/Vol] 109 mmol/L Critically high 98-107 [facility] Comment on above: Performed By: #### C MP ####[facility] Fihhtxwwkw0[address] [place], [place] [address]Dr. Lynettesujata Brandon CO2 [Moles/Vol] 29.1 mmol/L Normal 21.0-32.0 [facility] Comment on above: Performed By: #### C MP ####[facility] Zobcgrxhim337[address] [place], [place] [address]Dr. Arnoldo Brandon Creatinine [Mass/Vol] 1.03 mg/dL Critically high 0.55-1.02 [facility] Comment on above: Performed By: #### C MP ####[facility] Rorvibbbri37[address] [place], [place] [address]Dr. Lynettesujata Brandon EGFR-AF BURKINAN >60 Normal >=60 [facility] Comment on above: Performed By: #### C MP ####[facility] Uttzlhxcbs[address] [place], [place] [address]Dr. Arnoldo Taylor EGFR-NON AF BURKINAN 52 mL/min/1.73m2 Critically low >=60 [facility] Comment on above: Performed By: #### C MP ####[facility] Vaevymlwbq65[address] [place], [place] [address]Dr. Arnoldo Taylor Globulin (S) [Mass/Vol] 3.5 g/dL Normal [facility] Comment on above: Performed By: #### C MP ####[facility] Ywhatdjgmj632[address] [place], [place] [address]Dr. Arnoldo Taylor Glucose [Mass/Vol] 94 mg/dL Normal 74-106 [facility] Comment on above: Performed By: #### C MP ####[facility] Pxphatafwc0524 [place] [address]Dr. Arnoldo Taylor Potassium [Moles/Vol] 3.8 mmol/L Normal 3.5-5.1 [facility] Comment on above: Performed By: #### C MP ####[facility] Kvpadyimzx99[address] [place], [place] [address]Dr. Arnoldo Taylor Protein [Mass/Vol] 6.0 g/dL Critically low 6.4-8.2 Th e [facility] Comment on above: Performed By: #### C MP ####[facility] Doodrwkmsn[address] [place], [place] [address]Dr. Arnoldo Taylor Sodium [Moles/Vol] 142 mmol/L Normal 136-145 [facility] Comment on above: Performed By: #### C MP ####[facility] Sfjzzaanrk[address] [place], [place] [address]Dr. Arnoldo Taylor Urea nitrogen [Mass/Vol] 21.0 mg/dL Critically high 7.0-18.0 [facility] Comment on above: Performed By: #### C MP ####[facility] Gpcauznldk[address] [place], [place] [address]Dr. Arnoldo Taylor Urea nitrogen/Creatinine [Mass ratio] 20.4 mg/mg Normal [facility] Comment on above: Performed By: #### C MP ####[facility] Lvgraftlgq5[address] [place], [place] [address]Dr. Arnoldo Taylor CBC AUTO DIFFon 01-07-2022 BASO # 0.0 103/ul Normal 0.0-0.1 [facility] Comment on above: Performed By: #### C BC ####[facility] Imsmkiblwd30[address] [place], [place] [address]Dr. Arnoldo Taylor Basophils/100 WBC (Bld) 0.3 % Normal 0.2-2.0 [facility] Comment on above: Performed By: #### C BC ####[facility] Qbvpulonuk7454 [place] [address]Dr. Arnoldo Taylor EO # 0.3 103/ul Normal 0.0-0.7 [facility] Comment on above: Performed By: #### C BC ####[facility] Whtfghzdmu2075 [place] [address]Dr. Arnoldo Taylor Eosinophils/100 WBC (Bld) 3.5 % Normal 0.9-7.0 [facility] Comment on above: Performed By: #### C BC ####[facility] Lzkwupajvz[address] [place], [place] [address]Dr. Arnoldo Taylor Erythrocyte distribution width (RBC) [Ratio] 13.8 % Normal 11.0-15.0 [facility] Comment on above: Performed By: #### C BC ####[facility] Zinivllxnt5[address] [place], [place] [address]Dr. Arnoldo Taylor Hematocrit (Bld) [Volume fraction] 38.0 % Normal 36.0-48.0 [facility] Comment on above: Performed By: #### C BC ####[facility] Seixhctqrt[address] [place], [place] [address]Dr. Arnoldo Taylor Hemoglobin (Bld) [Mass/Vol] 11.7 g/dL Critically low 12.0-16.0 [facility] Comment on above: Performed By: #### C BC ####[facility] Qxrgmriiwv[address] [place], [place] [address]Dr. Arnoldo Taylor IG # 0.02 10e3/ul Normal 0.00-0.03 [facility] Comment on above: Performed By: #### C BC ####[facility] Zgzicxdlsz[address] [place], [place] [address]Dr. Arnoldo Taylor IG % 0.3 % Normal 0.0-0.5 [facility] Comment on above: Performed By: #### C BC ####[facility] Hhmasgzvyp[address] [place], [place] [address]Dr. Arnoldo Taylor LYMPH # 4.1 103/ul Critically high 1.2-3.8 [facility] Comment on above: Performed By: #### C BC ####[facility] Tawbmjlgqc4824 [place] [id number]. Arnoldo Brandon Lymphocytes/100 WBC (Bld) 53.8 % Normal 20.5-60.0 [facility] Comment on above: Performed By: #### C BC ####[facility] Qrhcsclcrh8019 [place] [id number]. Lynettesujata Taylor MANUAL DIFF REQ NO Normal [facility] Comment on above: Performed By: #### C BC ####[facility] Panqmukfgv7417 [place] [address]Dr. Lynettesujata Taylor MCH (RBC) [Entitic mass] 30.3 pg Normal 26.7-34.0 [facility] Comment on above: Performed By: #### C BC ####[facility] Vwjvodkhhg1327 [place] [address]Dr. Lynettesujata Taylor MCHC (RBC) [Mass/Vol] 30.8 g/dL Normal 29.9-35.2 [facility] Comment on above: Performed By: #### C BC ####[facility] Illzwczypv6300 [place] [address]Dr. Lynettesujata Taylor MCV (RBC) [Entitic vol] 98.4 fL Normal 81.0-99.0 [facility] Comment on above: Performed By: #### C BC ####[facility] Rxjmvwwllm6204 [place] [address]Dr. Arnoldo Taylor MONO # 0.9 103/ul Critically high 0.3-0.8 [facility] Comment on above: Performed By: #### C BC ####[facility] Wxfchezqjq3576 [place] [address]Dr. Arnoldo Taylor Monocytes/100 WBC (Bld) 11.6 % Normal 1.7-12.0 [facility] [facility] Comment on above: Performed By: #### C BC ####[facility] Vgzcyujgba[address] [place] [address]Dr. Arnoldo Taylor NEUT # 2.3 103/ul Normal 1.4-6.5 [facility] Comment on above: Performed By: #### C BC ####[facility] Rkqfiuywug95[address] [place] [id number]. Arnoldo Taylor Neutrophils/100 WBC (Bld) 30.5 % Critically low 43.0-75.0 [facility] Comment on above: Performed By: #### C BC ####[facility] Bfepeizpms5916 [place] [phone]. Arnoldo Taylor Platelet mean volume (Bld) [Entitic vol] 9.6 fL Normal 9.5-13.5 [facility] Comment on above: Performed By: #### C BC ####[facility] Oqnpbxenos0845 [place] [phone]. Lynettesujata Brandon PLT 157 103/ul Normal 150-450 [facility] Comment on above: Performed By: #### C BC ####[facility] Vbxykolchc7588 [place] [phone]. Lynettesujata Brandon RBC 3.86 106/ul Critically low 4.20-5.40 [facility] Comment on above: Performed By: #### C BC ####[facility] Zlklbhfmto1347 [place] [phone]. Arnoldo Brandon WBC 7.7 103/ul Normal 4.0-11.0 [facility] Comment on above: Performed By: #### C BC ####[facility] Qwimbgvsqq0161 [place] [phone]. Arnoldo Taylor PROF 14(COMP METB)on 022 Albumin [Mass/Vol] 2.6 g/dL Critically low 3.4-5.0 [facility] Comment on above: Performed By: #### C MP ####[facility] Aspkhmxyun04[address] [place] [phone]. Arnoldo Taylor Albumin/Globulin [Mass ratio] 0.7 {ratio} Normal [facility] Comment on above: Performed By: #### C MP ####[facility] Jgfstoxvom6827 [place] [phone]. Arnoldo Taylor ALP [Catalytic activity/Vol] 157 U/L Critically high 46-116 [facility] Comment on above: Performed By: #### C MP ####[facility] Rmwbkoavmd3800 [place] [phone]. Arnoldo Taylor ALT [Catalytic activity/Vol] 13 U/L Critically low 14-59 [facility] Comment on above: Performed By: #### C MP ####[facility] Sbuptgrdcc7765 [place] [address]Dr. Arnoldo Taylor Anion gap [Moles/Vol] 10.9 mmol/L Normal [facility] Comment on above: Performed By: #### C MP ####[facility] Leugnburga5[address] [place] [address]Dr. Arnoldo Taylor AST [Catalytic activity/Vol] 19 U/L Normal 15-37 [facility] Comment on above: Performed By: #### C MP ####[facility] Gtocyrfngj8592 [place] [address]Dr. Arnoldo Taylor Bilirubin [Mass/Vol] 0.4 mg/dL Normal 0.2-1.0 [facility] Comment on above: Performed By: #### C MP ####[facility] Labktreyez[address] [place], [place] [address]Dr. Arnoldo Taylor Calcium [Mass/Vol] 8.9 mg/dL Normal 8.5-10.1 [facility] Comment on above: Performed By: #### C MP ####[facility] Qadwbleiao[address] [place], [place] [address]Dr. Arnoldo Taylor Chloride [Moles/Vol] 107 mmol/L Normal 98-107 [facility] Comment on above: Performed By: #### C MP ####[facility] Okvqcilaun30[address] [place] [address]Dr. Arnoldo Taylor CO2 [Moles/Vol] 26.0 mmol/L Normal 21.0-32.0 [facility] Comment on above: Performed By: #### C MP ####[facility] Reqnaictai[address] [place], [place] [address]Dr. Arnoldo Taylor Creatinine [Mass/Vol] 1.17 mg/dL Critically high 0.55-1.02 [facility] Comment on above: Performed By: #### C MP ####[facility] Hxztdxxhok05[address] [place] [phone]. Arnoldo Taylor EGFR-AF BURKINAN 54 mL/min/1.73m2 Critically low >=60 [facility] Comment on above: Performed By: #### C MP ####[facility] Pmwjknmool0709 [place] [phone]. Arnoldo Taylor EGFR-NON AF BURKINAN 45 mL/min/1.73m2 Critically low >=60 [facility] Comment on above: Performed By: #### C MP ####[facility] Bdxbdmmqcn0814 [place] [phone]. Arnoldo Taylor Globulin (S) [Mass/Vol] 3.7 g/dL Normal [facility] Comment on above: Performed By: #### C MP ####[facility] Vkalimrqxf8686 [place] [address]Dr. Arnoldo Taylor Glucose [Mass/Vol] 94 mg/dL Normal 74-106 [facility] Comment on above: Performed By: #### C MP ####[facility] Uqzsdoqgjg4935 [place] [address]Dr. Arnoldo Taylor Potassium [Moles/Vol] 3.9 mmol/L Normal 3.5-5.1 [facility] Comment on above: Performed By: #### C MP ####[facility] Jlbyaanzif[address] [place] [address]Dr. Arnoldo Taylor Protein [Mass/Vol] 6.3 g/dL Critically low 6.4-8.2 [facility] Comment on above: Performed By: #### C MP ####[facility] Qgjqmvkeob5109 [place] [phone]. Arnoldo Taylor Sodium [Moles/Vol] 140 mmol/L Normal 136-145 [facility] Comment on above: Performed By: #### C MP ####[facility] Tzlamrrixy7[address] [place] [address]Dr. Arnoldo Taylor Urea nitrogen [Mass/Vol] 28.0 mg/dL Critically high 7.0-18.0 [facility] Comment on above: Performed By: #### C MP ####[facility] Qdpiinrpnr1407 [place] [address]Dr. Arnoldo Taylor Urea nitrogen/Creatinine [Mass ratio] 23.9 mg/mg Normal [facility] Comment on above: Performed By: #### C MP ####[facility] Emevmttmlq98[address] [place], [place] [address]Dr. Arnoldo Taylor BNPon 01-06-2022 Natriuretic peptide B (Bld) [Mass/Vol] 382.0 pg/mL Normal <=1,800.0 [facility] Comment on above: Performed By: #### B CAPACITY ANALYST, LIPA, CMP, HSTROPN ####[facility] Sxfzdqopfh[address] [place], [place] [address]Dr. Lynettesujata Taylor CBC AUTO DIFFon 01-06-2022 BASO # 0.0 103/ul Normal 0.0-0.1 [facility] Comment on above: Performed By: #### C BC ####[facility] Adsvipmmem[address] [place], [place] [address]Dr. Arnoldo Taylor Basophils/100 WBC (Bld) 0.1 % Critically low 0.2-2.0 [facility] Comment on above: Performed By: #### C BC ####[facility] Pfssxqnpck[address] [place], [place] [address]Dr. Arnoldo Taylor EO # 0.1 103/ul Normal 0.0-0.7 [facility] Comment on above: Performed By: #### C BC ####[facility] Rlxltepgqv183[address] [place], [place] [address]Dr. Arnoldo Taylor Eosinophils/100 WBC (Bld) 1.2 % Normal 0.9-7.0 [facility] Comment on above: Performed By: #### C BC ####[facility] Sciqnmqhud79[address] [place], [place] [address]Dr. Arnoldo Taylor Erythrocyte distribution width (RBC) [Ratio] 13.3 % Normal 11.0-15.0 [facility] Comment on above: Performed By: #### C BC ####[facility] Sfvhuwweyz[address] [place], [place] [address]Dr. Arnoldo Taylor Hematocrit (Bld) [Volume fraction] 41.0 % Normal 36.0-48.0 [facility] Comment on above: Performed By: #### C BC ####[facility] Kkatmjsxrc1420 [place] [address]DrTye Taylor Hemoglobin (Bld) [Mass/Vol] 13.5 g/dL Normal 12.0-16.0 [facility] Comment on above: Performed By: #### C BC ####[facility] Lrejmcquqy9641 [place] [address]DrTye Taylor IG # 0.02 10e3/ul Normal 0.00-0.03 [facility] Comment on above: Performed By: #### C BC ####[facility] Vmueblvfjo[address] [place], [place] [address]DrTye Taylor IG % 0.2 % Normal 0.0-0.5 [facility] Comment on above: Performed By: #### C BC ####[facility] Lhtbotnzng[address] [place], [place] [address]DrTye Taylor LYMPH # 4.4 103/ul Critically high 1.2-3.8 [facility] Comment on above: Performed By: #### C BC ####[facility] Oignjvdlnc[address] [place], [place] [address]DrTye Taylor Lymphocytes/100 WBC (Bld) 46.9 % Normal 20.5-60.0 [facility] Comment on above: Performed By: #### C BC ####[facility] Nbsvtclqjg0[address] [place], [place] [address]DrTye Taylor MANUAL DIFF REQ NO Normal [facility] Comment on above: Performed By: #### C BC ####[facility] Amhtmwwbgn5439 [place] [phone] Taylor MCH (RBC) [Entitic mass] 30.8 pg Normal 26.7-34.0 [facility] Comment on above: Performed By: #### C BC ####[facility] Ynvzshcuiv2223 [place] [phone] Taylor MCHC (RBC) [Mass/Vol] 32.9 g/dL Normal 29.9-35.2 [facility] Comment on above: Performed By: #### C BC ####[facility] Rwjqxwbmkl8140 [place] [address]DrTye Taylor MCV (RBC) [Entitic vol] 93.4 fL Normal 81.0-99.0 [facility] Comment on above: Performed By: #### C BC ####[facility] Xcpvnmozsb7263 [place] [address]DrTye Taylor MONO # 0.9 103/ul Critically high 0.3-0.8 [facility] Comment on above: Performed By: #### C BC ####[facility] Qviuajlugd0799 [place] [address]DrTye Taylor Monocytes/100 WBC (Bld) 9.6 % Normal 1.7-12.0 [facility] Comment on above: Performed By: #### C BC ####[facility] Rzvtvxqxus7[address] [place], [place] [address]DrTye Taylor NEUT # 3.9 103/ul Normal 1.4-6.5 [facility] Comment on above: Performed By: #### C BC ####[facility] Xumfmhxuhg[address] [place], [place] [address]DrTye Taylor Neutrophils/100 WBC (Bld) 42.0 % Critically low 43.0-75.0 [facility] Comment on above: Performed By: #### C BC ####[facility] Xdbdwuoyof67[address] [place], [place] [address]DrTye Taylor Platelet mean volume (Bld) [Entitic vol] 10.2 fL Normal 9.5-13.5 [facility] Comment on above: Performed By: #### C BC ####[facility] Bhpqvcsfzv7[address] [place], [place] [address]DrTye Taylor PLT 199 103/ul Normal 150-450 [facility] Comment on above: Performed By: #### C BC ####[facility] Idjlnlossb[address] [place], [place] [address]DrTye Taylor RBC 4.39 106/ul Normal 4.20-5.40 [facility] Comment on above: Performed By: #### C BC ####[facility] Cazjbczdkh24[address] [place] [phone]. Arnoldo Taylor WBC 9.3 103/ul Normal 4.0-11.0 [facility] Comment on above: Performed By: #### C BC ####[facility] Plnlcfjgut8244 [place] [phone]. Arnoldo Taylor CT HEAD WO CONon 01-06-2022 CT HEAD WO CON Normal [facility] CULTURE BLOODon 01-06-2022 Microscopic examination of blood, culture Culture Observations: NO GROWTH AT 5 DAYS. Normal [facility] Comment on above: Performed By: #### B LDCX2 ####[facility] Wmqvrqccxx2221 [place] [phone]. Arnoldo Taylor Microscopic examination of blood, culture Culture Observations: NO GROWTH AT 5 DAYS. Normal [facility] Comment on above: Performed By: #### B LDCX1 ####[facility] Ttsoezwteh69[address] [place] [phone]. Arnoldo Taylor CULTURE URINEon 01-06-2022 CULTURE URINE Culture Observations : NO GROWTH. Normal [facility] Comment on above: Performed By: #### U RCX ####[facility] Huazirbnay23[address] [place] [phone]. Arnoldo Taylor Covid-19 PCR ([facility])on SARS-CoV-2 (COVID-19) RNA JAMMIE+probe Ql (Unsp spec) Not detected Normal NOT DETECTED [facility] Comment on above: Result Comment: When diagnostic testing is negative, the possibility of a false negative should be considered inthe context of a patient's recent exposures and the presence of clinical signs and symptomsconsistent with SARS-CoV-2.This test is not yet approved or cleared by the [place] FDA. When there are no FDA-approved or cleared tests available, and other criteria are met, FDA can make tests available under an emergency access mechanism called an Emergency Use Authorization (EUA). The EUA for this test is supported by the [place] of Health and Human Service's declaration that circumstances exist to justify the emergency use of in vitro diagnostics for the detection and/or diagnosis of the virus that causes COVID-19. This EUA will remain in effect for the duration of the COVID-19 declaration justifying emergency of IVDs, unless it is terminated or revoked by the FDA (after which the test may no longer be used). Performed By: #### C [facility] ####[facility] Vauligdnks[address] [place], [place] [address]Dr. Lynettesujata Brandon ER URINE PROFILEon 2 Bilirubin Ql (U) Negative Normal NEGATIVE [facility] Comment on above: Performed By: #### E RUR ####[facility] Mlxxanrded768[address] [place], [place] [address]Dr. Lynettesujata Taylor Clarity (U) CLEAR Normal CLEAR [facility] Comment on above: Performed By: #### E RUR ####[facility] Wfcauhraqx[address] [place], [place] [address]Dr. Lynettelan Taylor Color (U) YELLOW Normal YELLOW [facility] Comment on above: Performed By: #### E RUR ####[facility] Hcftjqdnpm[address] [place], [place] [address]Dr. Arnoldo Taylor ERUAHD A micrscopic examination will be performed if indicated. Normal [facility] Comment on above: Performed By: #### E RUR ####[facility] Cwlvxvxmuu[address] [place], [place] [address]Dr. Lynettelan Taylor Glucose Ql (U) Negative Normal NEGATIVE [facility] Comment on above: Performed By: #### E RUR ####[facility] Hbyrmkgtdq[address] [place], [place] [address]Dr. Yilan Taylor Hemoglobin Ql (U) Negative Normal NEGATIVE [facility] Comment on above: Performed By: #### E RUR ####[facility] Yeyxxceheh[address] [place], [place] [address]Dr. Lynettelan Taylor Ketones Ql (U) Negative Normal NEGATIVE The [facility] Comment on above: Performed By: #### E RUR ####[facility] Cdyfiyenps[address] [place], [place] [address]Dr. Lynettelan Taylor LEUKOCYTES Negative Normal NEGATIVE The [facility] Comment on above: Performed By: #### E RUR ####[facility] Stjqdeahmu6111 [place] [address]Dr. Arnoldo Taylor Nitrite Ql (U) Negative Normal NEGATIVE The [facility] Comment on above: Performed By: #### E RUR ####[facility] Hsrizvbvfr[address] [place], [place] [address]Dr. Arnoldo Taylor pH (U) 7.5 [pH] Normal 5-9 [facility] Comment on above: Performed By: #### E RUR ####[facility] Sarmqiloyv[address] [place], [place] [address]Dr. Arnoldo Brandon SPEC GRAVITY 1.010 Normal 1.005-<=1.025 [facility] Comment on above: Performed By: #### E RUR ####[facility] Nzexquhlzq98[address] [place], [place] [address]Dr. Arnoldo Taylor UA PROTEIN Negative Normal NEGATIVE/ TRACE [facility] Comment on above: Performed By: #### E RUR ####[facility] Qhxyoujsza9[address] [place], [place] [address]Dr. Lynettesujata Taylor UR MICRO IND NOT INDICATED Normal [facility] Comment on above: Performed By: #### E RUR ####[facility] Gatjlbvbei[address] [place], [place] [address]Dr. Arnoldo Brandon Urobilinogen Qn (U) 0.2 {Adrienne'U}/dL Normal 0.2 - 1. 0 [facility] Comment on above: Performed By: #### E RUR ####[facility] Eaqvbabgnf[address] [place], [place] [address]Dr. Arnoldo Brandon LACTATE/LACTIC ACIDon 2021 Lactate [Moles/Vol] 1.6 mmol/L Normal 0.4-1.9 [facility] Comment on above: Performed By: #### L ACT ####[facility] Btetfduetv[address] [place], [place] [address]Dr. Arnoldo Brandon LIPASEon 01-06-2022 Lipase [Catalytic activity/Vol] 85.0 U/L Normal 73.0-393.0 [facility] Comment on above: Performed By: #### B CAPACITY ANALYST, LIPA, CMP, HSTROPN ####[facility] Mclatmkhgt9[address] [place] [address]Dr. Arnoldo Taylor PROF 14(COMP METB)on 022 Albumin [Mass/Vol] 3.2 g/dL Critically low 3.4-5.0 Th e [facility] Comment on above: Performed By: #### B CAPACITY ANALYST, LIPA, CMP, HSTROPN ####[facility] Roecyrghcl47[address] [place] [address]Dr. Arnoldo Taylor Albumin/Globulin [Mass ratio] 0.7 {ratio} Normal [facility] Comment on above: Performed By: #### B CAPACITY ANALYST, LIPA, CMP, HSTROPN ####[facility] Xbinvnwdwu2369 [place] [address]Dr. Arnoldo Taylor ALP [Catalytic activity/Vol] 188 U/L Critically high 46-116 [facility] Comment on above: Performed By: #### B CAPACITY ANALYST, LIPA, CMP, HSTROPN ####[facility] Txdznbynjm[address] [place], [place] [address]Dr. Arnoldo Taylor ALT [Catalytic activity/Vol] 16 U/L Normal 14-59 [facility] Comment on above: Performed By: #### B CAPACITY ANALYST, LIPA, CMP, HSTROPN ####[facility] Pslpkwlniq2587 [place] [address]Dr. Arnoldo Taylor Anion gap [Moles/Vol] 13.5 mmol/L Normal [facility] Comment on above: Performed By: #### B CAPACITY ANALYST, LIPA, CMP, HSTROPN ####[facility] Ltohnukcdi6636 [place] [address]Dr. Arnoldo Taylor AST [Catalytic activity/Vol] 20 U/L Normal 15-37 [facility] Comment on above: Performed By: #### B CAPACITY ANALYST, LIPA, CMP, HSTROPN ####[facility] Chbtgexrby4982 [place] [address]Dr. Arnoldo Taylor Bilirubin [Mass/Vol] 0.7 mg/dL Normal 0.2-1.0 [facility] Comment on above: Performed By: #### B CAPACITY ANALYST, LIPA, CMP, HSTROPN ####[facility] [address]djymsyjvr[address] [place], [place] [address]Dr. Arnoldo Taylor Calcium [Mass/Vol] 9.6 mg/dL Normal 8.5-10.1 [facility] Comment on above: Performed By: #### B CAPACITY ANALYST, LIPA, CMP, HSTROPN ####[facility] Pwkrbsbdeh[address] [place], [place] [address]Dr. Arnoldo Taylor Chloride [Moles/Vol] 103 mmol/L Normal 98-107 [facility] Comment on above: Performed By: #### B CAPACITY ANALYST, LIPA, CMP, HSTROPN ####[facility] Zyncvxcsrt[address] [place], [place] [address]Dr. Arnoldo Taylor CO2 [Moles/Vol] 24.9 mmol/L Normal 21.0-32.0 [facility] Comment on above: Performed By: #### B CAPACITY ANALYST, LIPA, CMP, HSTROPN ####[facility] Neqkvzdjkc6[address] [place], [place] [address]Dr. Arnoldo Taylor Creatinine [Mass/Vol] 1.20 mg/dL Critically high 0.55-1.02 [facility] Comment on above: Performed By: #### B CAPACITY ANALYST, LIPA, CMP, HSTROPN ####[facility] Eqifnqrfdn20[address] [place], [place] [address]Dr. Arnoldo Taylor EGFR-AF BURKINAN 53 mL/min/1.73m2 Critically low >=60 [facility] Comment on above: Performed By: #### B CAPACITY ANALYST, LIPA, CMP, HSTROPN ####[facility] Noncuohnit85[address] [place], [place] [address]Dr. rAnoldo Taylor EGFR-NON AF BURKINAN 43 mL/min/1.73m2 Critically low >=60 [facility] Comment on above: Performed By: #### B CAPACITY ANALYST, LIPA, CMP, HSTROPN ####[facility] Bkazjduzio8[address] [place], [place] [address]Dr. Arnoldo Taylor Globulin (S) [Mass/Vol] 4.3 g/dL Normal [facility] Comment on above: Performed By: #### B CAPACITY ANALYST, LIPA, CMP, HSTROPN ####[facility] Wsdexrptew6[address] [place] [address]Dr. Arnoldo Taylor Glucose [Mass/Vol] 96 mg/dL Normal 74-106 The [facility] Comment on above: Performed By: #### B CAPACITY ANALYST, LIPA, CMP, HSTROPN ####[facility] Klenflmwbq6[address] [place] [address]Dr. Arnoldo Taylor Potassium [Moles/Vol] 3.4 mmol/L Critically low 3.5-5.1 [facility] Comment on above: Performed By: #### B CAPACITY ANALYST, LIPA, CMP, HSTROPN ####[facility] Gkqhrwlgjf66[address] [place] [address]Dr. Arnoldo Taylor Protein [Mass/Vol] 7.5 g/dL Normal 6.4-8.2 [facility] Comment on above: Performed By: #### B CAPACITY ANALYST, LIPA, CMP, HSTROPN ####[facility] Loawiesygo[address] [place] [address]Dr. Arnoldo Taylor Sodium [Moles/Vol] 138 mmol/L Normal 136-145 [facility] Comment on above: Performed By: #### B CAPACITY ANALYST, LIPA, CMP, HSTROPN ####[facility] Qoqmbgrhpv4[address] [place] [address]Dr. Arnoldo Taylor Urea nitrogen [Mass/Vol] 35.0 mg/dL Critically high 7.0-18.0 [facility] Comment on above: Performed By: #### B CAPACITY ANALYST, LIPA, CMP, HSTROPN ####[facility] Lsyogkvsds2760 [place] [address]Dr. Arnoldo Taylor Urea nitrogen/Creatinine [Mass ratio] 29.2 mg/mg Normal [facility] Comment on above: Performed By: #### B CAPACITY ANALYST, LIPA, CMP, HSTROPN ####[facility] Qnhnbywcid5070 [place], [place] [address]Mo. Arnoldo Taylor TROPONIN, HIGH SENSITIVITYon 01-06-2022 HSTROP 8.4 pg/mL Normal 4.0-51.3 [facility] Comment on above: Result Comment: CUT- OFF POINTS HAVE BEEN ESTABLISHED BASED ON THE FOURTH UNIVERSAL DEFINITIONS OF MYOCARDIALINFARCTION. THE UPPER REFERENCE LIMIT (URL) OF TROPONIN, DEFINED THE 99TH PERCENTILE OFcTnI DISTRIBUTION IN A REFERENCE POPULATION, HAS BEEN CONFIRMED THE DECISION THRESHOLDFOR SC DIAGNOSIS. Performed By: #### B CAPACITY ANALYST, LIPA, CMP, HSTROPN ####[facility] Opiqjbmwvx67[address] [place], [place] [address]Dt. Arnoldo Taylor XR ABD FLAT UP_PA Byron 01-06 XR ABD FLAT UP_PA CH Normal [facility] HIP LEFT 1 OR 2 VWS WITH PEL VISon 12-24-2021 HIP LEFT 1 OR 2 VWS WITH PELVIS [facility] Department of Radiology [address] [place] [id number] ======== Patient Name: MYRANDA YANES : 1940 Sex: F Age: Race: White Pt. Location: Patient Status: O Ordered Date: 12/24/2021 9:55:00 AM Completed Date: 12/24/2021 10:06 AM Requesting Provider: GEORGE HARTMAN Attending Provider: JASKARAN BEAL Report Copy To: Signs & Symptoms: Z48.89 Encounter for other specified surgical aftercare I10 History: Comments: Evaluate Exam: HIP LEFT 1 OR 2 VWS WITH PELVIS ======== HIP LEFT 1 OR 2 VWS WITH PELVIS 12/24/2021 10:06 AM CLINICAL INDICATIONS: Z48.89 Encounter for other specified surgical aftercare I10 TECHNOLOGIST COMMENTS: left hip and left tibia surgery check healing QUESTION FOR THE RADIOLOGIST: Evaluate PROTOCOL: AP(PA) and Lateral views were obtained. COMPARISON: XR left hip and pelvis 11/19/2021 IMPRESSION: Stable appearance of left hip hardware without evidence for hardware associated complication. Mild progression of healing at the femoral neck fracture site. Stable chronic displacement of lesser trochanter. Approved by:Rochelle Camarillo12/24/2021 2:25 PM. I, Remy Montalvo,have reviewed the image(s) and agree with the findings in this report. Electronically signed: Remy Montalvo. Transcribed by: [email or web address], User Resident: ROCEHLLE GARNETT Electronically Signed by: REMY MONTALVO @ 12/24/2021 02:40 PM I personally read this/these film(s) with this resident Normal [facility] Comment on above: Order Comment: Crite brittaney for reflexing a culture was not met. Please call the lab at [phone] within 24 hours of collection time if culture is needed TIBIA FIBULA LEFTon 12-25-19 22 TIBIA FIBULA LEFT [facility] Department of Radiology [address] [place] [phone] ======== Patient Name: MYRANDA YANES : 1940 Sex: F Age: Race: White Pt. Location: Patient Status: D Ordered Date: 12/24/2021 10:00:00 AM Completed Date: 12/24/2021 10:06 AM Requesting Provider: GEORGE HARTMAN Attending Provider: JASKARAN BEAL Report Copy To: Signs & Symptoms: Z48.89 Encounter for other specified surgical aftercare I10 History: Comments: Evaluate Exam: TIBIA FIBULA LEFT ======== TIBIA FIBULA LEFT 12/24/2021 10:06 AM CLINICAL INDICATIONS: Z48.89 Encounter for other specified surgical aftercare I10 TECHNOLOGIST COMMENTS: left hip and left tibia surgery check healing QUESTION FOR THE RADIOLOGIST: Evaluate PROTOCOL: AP(PA) and Lateral views were obtained. COMPARISON: Fluoroscopy left tibia/fibula 11/23/2021, XR left tibia/fibula 11/21/2021 IMPRESSION: Interval placement of tibial intramedullary nail fixation, with no evidence of hardware associated complication. Mildly improved anatomic alignment of distal tibial fracture fragments with persistent lucency indicative of incomplete healing. Unchanged alignment and appearance of distal fibular fracture site. Approved by:Rochelle Camarillo12/25/2021 1:51 PM. I, Tomasa Glass,have reviewed the image(s) and agree with the findings in this report. Electronically signed: Tomasa Glass. Transcribed by: [email or web address], User Resident: ROCHELLE GARNETT Electronically Signed by: TOMASA GLASS @ 12/25/2021 03:33 PM I personally read this/these film(s) with this resident Normal [facility] Comment on above: Order Comment: Evalu ate BASIC METABOLIC PANELon 07-3 Calcium [Mass/Vol] 8.1 mg/dL Low 8.6-10.3 [facility] Comment on above: Order Comment: Hemog lobin < 9 gm/dl with known cardiac or cerebrovascular disease Performed By: #### 8 [id number] #### [facility] [address] [place] [address], [facility] Chloride [Moles/Vol] 101 mmol/L Normal 98-107 [facility] Comment on above: Order Comment: Hemog lobin < 9 gm/dl with known cardiac or cerebrovascular disease Performed By: #### 8 [id number] #### [facility] [address] [place] [address], [facility] CO2 [Moles/Vol] 28 mmol/L Normal 21-31 [facility] Comment on above: Order Comment: Hemog lobin < 9 gm/dl with known cardiac or cerebrovascular disease Performed By: #### 8 [id number] #### [facility] [address] [place] [address], [facility] Creatinine [Mass/Vol] 0.76 mg/dL Normal 0.60-1.20 [facility] Comment on above: Order Comment: Hemog lobin < 9 gm/dl with known cardiac or cerebrovascular disease Performed By: #### 8 [id number] #### [facility] [address] [place] [address], [facility] GFR/1.73 sq M.predicted among non-blacks MDRD (S/P/Bld) [Vol rate/Area] mL/min/{1.73_m2} Normal >60 [facility] Comment on above: Order Comment: Hemog lobin < 9 gm/dl with known cardiac or cerebrovascular disease Result Comment: [facility]'s estimated glomerular filtration rate (eGFR) will no longer include consideration of race in its calculation. The [employer]'s eGFR Task Force developed new recommendations for the estimation of the glomerular filtration rate in the [place] They recommend immediate implementation of the new equation refit without the race variable in all laboratories because the calculation does not include race. In addition to not including race in the calculation and reporting, it included diversity in its development, and has acceptable performance characteristics and potential consequences that do not disproportionately affect any one group of individuals. Performed By: #### 8 [id number] #### [facility] [address] [facility] [place] [id number], [facility] Glucose [Mass/Vol] 83 mg/dL Normal 70-100 [facility] Comment on above: Order Comment: Hemog lobin < 9 gm/dl with known cardiac or cerebrovascular disease Performed By: #### 8 6002 #### [facility] [address] [place] [address], [place] Potassium [Moles/Vol] 4.1 mmol/L Normal 3.5-5.1 [facility] Comment on above: Order Comment: Hemog lobin < 9 gm/dl with known cardiac or cerebrovascular disease Performed By: #### 8 6002 #### [facility] [address] [place] [address], [place] Sodium [Moles/Vol] 136 mmol/L Normal 136-145 [facility] Comment on above: Order Comment: Hemog lobin < 9 gm/dl with known cardiac or cerebrovascular disease Performed By: #### 8 6002 #### [facility] [address] [place] [address], [place] Urea nitrogen [Mass/Vol] 21 mg/dL Normal 7-25 [facility] Comment on above: Order Comment: Hemog lobin < 9 gm/dl with known cardiac or cerebrovascular disease Performed By: #### 8 [id number] #### [facility] [address] [place] [address], [facility] CBC COMPLETE BLOOD COUNTon 0 11-28-2021 Erythrocyte distribution width (RBC) [Ratio] 13.5 % Normal 11.5-15.0 [facility] Comment on above: Order Comment: No: D o not add to previous draw Performed By: #### 5 [id number] #### [facility] [address] [place] [address], [facility] Hematocrit (Bld) [Volume fraction] 24.3 % Low 36.0-45.0 [facility] Comment on above: Order Comment: No: D o not add to previous draw Performed By: #### 5 0608 #### [facility] [address] [place] [address], [facility] Hemoglobin (Bld) [Mass/Vol] 7.7 g/dL Low 12.0-15.0 [facility] Comment on above: Order Comment: No: D o not add to previous draw Performed By: #### 5 0608 #### [facility] [address] MCH (RBC) [Entitic mass] 30.9 pg Normal 27.0-33.0 [facility] Comment on above: Order Comment: No: D o not add to previous draw Performed By: #### 5 0608 #### [facility] [address] MCHC (RBC) [Mass/Vol] 31.7 g/dL Low 32.0-35.0 [facility] Comment on above: Order Comment: No: D o not add to previous draw Performed By: #### 5 0608 #### [facility] [address] MCV (RBC) [Entitic vol] 97.6 fL Normal 82.0-98.0 [facility] Comment on above: Order Comment: No: D o not add to previous draw Performed By: #### 5 0608 #### [facility] [address] [facility]. [address] Nucleated RBC/100 WBC (Bld) [Ratio] 0 % Normal 0-0 [facility] Comment on above: Order Comment: No: D o not add to previous draw Performed By: #### 5 0608 #### [facility] [address] [facility] [address], [facility] PLAT CNT 171 10*3/uL Normal 150-400 [facility] Comment on above: Order Comment: No: D o not add to previous draw Performed By: #### 5 0608 #### [facility] [address] [facility] [address], [facility] RBC (Bld) [#/Vol] 2.49 10*6/uL Low 3.80-5.00 [facility] Comment on above: Order Comment: No: D o not add to previous draw Performed By: #### 5 0608 #### [facility] [address] [place] [address], [facility] WBC (Bld) [#/Vol] 6.96 10*3/uL Normal 4.00-10.60 [facility] Comment on above: Order Comment: No: D o not add to previous draw Performed By: #### 5 0608 #### [facility] [address] [place] [address], [facility] BASIC METABOLIC PANELon 07- Calcium [Mass/Vol] 8.2 mg/dL Low 8.6-10.3 [facility] Comment on above: Order Comment: No: D o not add to previous draw Performed By: #### 0 0071, [id number] ####[facility] [place] [address], [facility] Chloride [Moles/Vol] 101 mmol/L Normal 98-107 [facility] Comment on above: Order Comment: No: D o not add to previous draw Performed By: #### 0 0071, 00953 ####[facility] [facility] [place] [address], [facility] CO2 [Moles/Vol] 29 mmol/L Normal 21-31 [facility] Comment on above: Order Comment: No: D o not add to previous draw Performed By: #### 0 0071, [id number] ####[facility] [place] [address], [facility] Creatinine [Mass/Vol] 0.79 mg/dL Normal 0.60-1.20 [facility] Comment on above: Order Comment: No: D o not add to previous draw Performed By: #### 0 0071, 24863 ####[facility] [place] [address], [facility] GFR/1.73 sq M.predicted among non-blacks MDRD (S/P/Bld) [Vol rate/Area] mL/min/{1.73_m2} Normal >60 [facility] Comment on above: Order Comment: No: D o not add to previous draw Result Comment: [facility]'s estimated glomerular filtration rate (eGFR) will no longer include consideration of race in its calculation. The National Kid[employer] Foundation's eGFR Task Force developed new recommendations for the estimation of the glomerular filtration rate in the [place] They recommend immediate implementation of the new equation refit without the race variable in all laboratories because the calculation does not include race. In addition to not including race in the calculation and reporting, it included diversity in its development, and has acceptable performance characteristics and potential consequences that do not disproportionately affect any one group of individuals. Performed By: #### 0 0071, [id number] ####[facility] [place] [address], [facility] Glucose [Mass/Vol] 100 mg/dL Normal 70-100 [facility] Comment on above: Order Comment: No: D o not add to previous draw Performed By: #### 0 0071, 05005 ####[facility] [place] [address], [facility] Potassium [Moles/Vol] 4.7 mmol/L Normal 3.5-5.1 [facility] Comment on above: Order Comment: No: D o not add to previous draw Performed By: #### 0 0071, 83638 ####[facility] [facility] [place] [address], [facility] Sodium [Moles/Vol] 137 mmol/L Normal 136-145 [facility] Comment on above: Order Comment: No: D o not add to previous draw Performed By: #### 0 0071, 66947 ####[facility] [facility] [place] [address], [facility] Urea nitrogen [Mass/Vol] 21 mg/dL Normal 7-25 [facility] Comment on above: Order Comment: No: D o not add to previous draw Performed By: #### 0 0071, [id number] ####[facility] [facility] CBC COMPLETE BLOOD COUNTon 0 11-27-2021 Erythrocyte distribution width (RBC) [Ratio] 13.3 % Normal 11.5-15.0 [facility] Comment on above: Order Comment: No: D o not add to previous draw Performed By: #### 5 0608 #### [facility] [address] [place] [address], [facility] Hematocrit (Bld) [Volume fraction] 25.2 % Low 36.0-45.0 [facility] Comment on above: Order Comment: No: D o not add to previous draw Performed By: #### 5 0608 #### [facility] [address] Hemoglobin (Bld) [Mass/Vol] 7.9 g/dL Low 12.0-15.0 [facility] Comment on above: Order Comment: No: D o not add to previous draw Performed By: #### 5 0608 #### [facility] [address] [facility] [facility] [place] [address], [facility] MCH (RBC) [Entitic mass] 30.6 pg Normal 27.0-33.0 [facility] Comment on above: Order Comment: No: D o not add to previous draw Performed By: #### 5 0608 #### [facility] [address] [place] [address], [facility] MCHC (RBC) [Mass/Vol] 31.3 g/dL Low 32.0-35.0 [facility] Comment on above: Order Comment: No: D o not add to previous draw Performed By: #### 5 0608 #### [facility] [address] [place] [address], [facility] MCV (RBC) [Entitic vol] 97.7 fL Normal 82.0-98.0 [facility] Comment on above: Order Comment: No: D o not add to previous draw Performed By: #### 5 0608 #### [facility] [address] [facility] [address] Nucleated RBC/100 WBC (Bld) [Ratio] 0 % Normal 0-0 [facility] Comment on above: Order Comment: No: D o not add to previous draw Performed By: #### 5 0608 #### [facility] [address] [facility] [place] [address], [facility] PLAT CNT 179 10*3/uL Normal 150-400 [facility] Comment on above: Order Comment: No: D o not add to previous draw Performed By: #### 5 0608 #### [facility] [address] [facility] [address], [facility] RBC (Bld) [#/Vol] 2.58 10*6/uL Low 3.80-5.00 [facility] Comment on above: Order Comment: No: D o not add to previous draw Performed By: #### 5 0608 #### [facility] [address] [place] [address], [facility] WBC (Bld) [#/Vol] 7.89 10*3/uL Normal 4.00-10.60 [facility] Comment on above: Order Comment: No: D o not add to previous draw Performed By: #### 5 0608 #### [facility] [address] [facility]. [address] PHOSPHORUS BLOODon Phosphate [Mass/Vol] 3.2 mg/dL Normal 2.5-5.0 [facility] Comment on above: Order Comment: No: D o not add to previous draw Performed By: #### 0 0071, 03919 ####[facility] [facility] BASIC METABOLIC PANELon - Calcium [Mass/Vol] 7.6 mg/dL Low 8.6-10.3 [facility] Comment on above: Order Comment: Hemog lobin < 9 gm/dl with known cardiac or cerebrovascular disease Performed By: #### 8 6002 #### [facility] [address] [place] [address], [facility] Chloride [Moles/Vol] 104 mmol/L Normal 98-107 [facility] Comment on above: Order Comment: Hemog lobin < 9 gm/dl with known cardiac or cerebrovascular disease Performed By: #### 8 6002 #### [facility] [address] [place] [address], [place] CO2 [Moles/Vol] 24 mmol/L Normal 21-31 [facility] Comment on above: Order Comment: Hemog lobin < 9 gm/dl with known cardiac or cerebrovascular disease Performed By: #### 8 6002 #### [facility] [address] [place] [address], [facility] Creatinine [Mass/Vol] 0.76 mg/dL Normal 0.60-1.20 [facility] Comment on above: Order Comment: Hemog lobin < 9 gm/dl with known cardiac or cerebrovascular disease Performed By: #### 8 6002 #### [facility] [address] [place] [address], [facility] GFR/1.73 sq M.predicted among non-blacks MDRD (S/P/Bld) [Vol rate/Area] mL/min/{1.73_m2} Normal >60 [facility] Comment on above: Order Comment: Hemog lobin < 9 gm/dl with known cardiac or cerebrovascular disease Result Comment: [facility]'s estimated glomerular filtration rate (eGFR) will no longer include consideration of race in its calculation. The [employer] Kid[employer]'s eGFR Task Force developed new recommendations for the estimation of the glomerular filtration rate in the [place] They recommend immediate implementation of the new equation refit without the race variable in all laboratories because the calculation does not include race. In addition to not including race in the calculation and reporting, it included diversity in its development, and has acceptable performance characteristics and potential consequences that do not disproportionately affect any one group of individuals. Performed By: #### 8 [id number] #### [facility] [address] [place] [address], [facility] Glucose [Mass/Vol] 100 mg/dL Normal 70-100 [facility] Comment on above: Order Comment: Hemog lobin < 9 gm/dl with known cardiac or cerebrovascular disease Performed By: #### 8 6002 #### [facility] [address] [place] [address], [facility] Potassium [Moles/Vol] 4.5 mmol/L Normal 3.5-5.1 [facility] Comment on above: Order Comment: Hemog lobin < 9 gm/dl with known cardiac or cerebrovascular disease Performed By: #### 8 6002 #### [facility] [address] [place] [address], [facility] Sodium [Moles/Vol] 136 mmol/L Normal 136-145 [facility] Comment on above: Order Comment: Hemog lobin < 9 gm/dl with known cardiac or cerebrovascular disease Performed By: #### 8 6002 #### [facility] [address] [place] [address], [facility] Urea nitrogen [Mass/Vol] 18 mg/dL Normal 7-25 [facility] Comment on above: Order Comment: Hemog lobin < 9 gm/dl with known cardiac or cerebrovascular disease Performed By: #### 8 6002 #### [facility] [address] [place] [address], [facility] CBC COMPLETE BLOOD COUNTon 0 7- Hematocrit (Bld) [Volume fraction] 23.0 % Low 36.0-45.0 [facility] Comment on above: Order Comment: No: D o not add to previous draw Performed By: #### 5 0608 #### [facility] [address] [place] [address], [facility] Hemoglobin (Bld) [Mass/Vol] 7.3 g/dL Low 12.0-15.0 [facility] Comment on above: Order Comment: No: D o not add to previous draw Performed By: #### 5 0608 #### [facility] [address] [place] [address], [facility] MCH (RBC) [Entitic mass] 30.7 pg Normal 27.0-33.0 [facility] Comment on above: Order Comment: No: D o not add to previous draw Performed By: #### 5 0608 #### [facility] [address] [place] [address], [facility] MCHC (RBC) [Mass/Vol] 31.7 g/dL Low 32.0-35.0 [facility] Comment on above: Order Comment: No: D o not add to previous draw Performed By: #### 5 0608 #### [facility] [address] [place] [address], [facility] MCV (RBC) [Entitic vol] 96.6 fL Normal 82.0-98.0 [facility] Comment on above: Order Comment: No: D o not add to previous draw Performed By: #### 5 0608 #### [facility] [address] [place] [address], [place] PLAT CNT 144 10*3/uL Low 150-400 [facility] Comment on above: Order Comment: No: D o not add to previous draw Performed By: #### 5 0608 #### [facility] [address] [place] [address], [place] RBC (Bld) [#/Vol] 2.38 10*6/uL Low 3.80-5.00 [facility] Comment on above: Order Comment: No: D o not add to previous draw Performed By: #### 5 0608 #### [facility] [address] [place] [address], [place] WBC (Bld) [#/Vol] 8.38 10*3/uL Normal 4.00-10.60 [facility] Comment on above: Order Comment: No: D o not add to previous draw Performed By: #### 5 0608 #### [facility] [address] [place] [address], [facility] Erythrocyte distribution width (RBC) [Ratio] 13.4 % Normal 11.5-15.0 [facility] Comment on above: Order Comment: No: D o not add to previous draw Performed By: #### 5 0608 #### [facility] [address] [place] [address], [facility] Nucleated RBC/100 WBC (Bld) [Ratio] 0 % Normal 0-0 [facility] Comment on above: Order Comment: No: D o not add to previous draw Performed By: #### 5 0608 #### [facility] [address] [place] [place] [address], [facility] CBC W/DIFFon 11-26-2021 ABS IMM GRANS 0.0 10*3/uL Normal 0.0-0.2 [facility] Comment on above: Order Comment: No: D o not add to previous draw Performed By: #### 5 0608 #### [facility] [address] [place] [address], [facility] ABS NEUTROPHILS 4.4 10*3/uL Normal 1.6-7.6 The [facility] Comment on above: Order Comment: No: D o not add to previous draw Performed By: #### 5 0608 #### [facility] [address] [place] [address], [facility] Basophils (Bld) [#/Vol] 0.0 10*3/uL Normal 0.0-0.2 [facility] Comment on above: Order Comment: No: D o not add to previous draw Performed By: #### 5 0608 #### [facility] [address] [place] [address], [facility] Basophils/100 WBC (Bld) 0.2 % Normal 0.0-1.0 [facility] Comment on above: Order Comment: No: D o not add to previous draw Performed By: #### 5 0608 #### [facility] [address] [place] [address], [facility] Eosinophils (Bld) [#/Vol] 0.2 10*3/uL Normal 0.0-0.5 [facility] Comment on above: Order Comment: No: D o not add to previous draw Performed By: #### 5 0608 #### [facility] [address] [place] [address], [facility] Eosinophils/100 WBC (Bld) 1.8 % Normal 0.0-6.0 [facility] Comment on above: Order Comment: No: D o not add to previous draw Performed By: #### 5 0608 #### [facility] [address] [facility] [place] [address], [facility] Hematocrit (Bld) [Volume fraction] 23.3 % Low 36.0-45.0 [facility] Comment on above: Order Comment: No: D o not add to previous draw Performed By: #### 5 0608 #### [facility] [address] [place] [address], [facility] Hemoglobin (Bld) [Mass/Vol] 7.6 g/dL Low 12.0-15.0 [facility] Comment on above: Order Comment: No: D o not add to previous draw Performed By: #### 5 0608 #### [facility] [address] [place] [address], [facility] IMM PLATELET FRAC 1.8 % Normal 0.8-6.3 [facility] Comment on above: Order Comment: No: D o not add to previous draw Performed By: #### 5 0608 #### [facility] [address] [place] [address], [facility] IMMATURE GRANS 0.5 % Normal 0.0-1.0 [facility] Comment on above: Order Comment: No: D o not add to previous draw Performed By: #### 5 0608 #### [facility] [address] [place] [address], [facility] Lymphocytes (Bld) [#/Vol] 2.9 10*3/uL Normal 1.2-4.0 [facility] Comment on above: Order Comment: No: D o not add to previous draw Performed By: #### 5 0608 #### [facility] [address] [place] [address], [facility] Lymphocytes/100 WBC (Bld) 33.7 % Normal 20.0-45.0 [facility] Comment on above: Order Comment: No: D o not add to previous draw Performed By: #### 5 0608 #### [facility] [address] [facility] [place] [address], [facility] MCH (RBC) [Entitic mass] 31.7 pg Normal 27.0-33.0 [facility] Comment on above: Order Comment: No: D o not add to previous draw Performed By: #### 5 [id number] #### [facility] [address] [place] [address], [facility] MCHC (RBC) [Mass/Vol] 32.6 g/dL Normal 32.0-35.0 [facility] Comment on above: Order Comment: No: D o not add to previous draw Performed By: #### 5 0608 #### [facility] [address] [place] [id number], [facility] MCV (RBC) [Entitic vol] 97.1 fL Normal 82.0-98.0 [facility] Comment on above: Order Comment: No: D o not add to previous draw Performed By: #### 5 0608 #### [facility] [address] [place] [address], [facility] Monocytes (Bld) [#/Vol] 1.1 10*3/uL High 0.1-1.0 [facility] Comment on above: Order Comment: No: D o not add to previous draw Performed By: #### 5 0608 #### [facility] [address] [place] [address], [facility] MONOS 12.9 % High 5.0-12.0 [facility] Comment on above: Order Comment: No: D o not add to previous draw Performed By: #### 5 0608 #### [facility] [address] [place] [address], [facility] Neutrophils/100 WBC (Bld) 50.9 % Normal 40.0-72.0 [facility] Comment on above: Order Comment: No: D o not add to previous draw Performed By: #### 5 0608 #### [facility] [address] [facility] [address], [facility] PLAT CNT 143 10*3/uL Low 150-400 [facility] Comment on above: Order Comment: No: D o not add to previous draw Result Comment: RESU LTS CHECKED Performed By: #### 5 0608 #### [facility] [address] [place] [address], [facility] RBC (Bld) [#/Vol] 2.40 10*6/uL Low 3.80-5.00 [facility] Comment on above: Order Comment: No: D o not add to previous draw Performed By: #### 5 0608 #### [facility] [address] [place] [address], [facility] WBC (Bld) [#/Vol] 8.54 10*3/uL Normal 4.00-10.60 [facility] Comment on above: Order Comment: No: D o not add to previous draw Performed By: #### 5 0608 #### [facility] [address] [place] [address], [facility] MAGNESIUM BLOODon 11-26-2021 Magnesium [Mass/Vol] 1.9 mg/dL Normal 1.9-2.7 [facility] Comment on above: Order Comment: No: D o not add to previous draw Performed By: #### 5 0608 #### [facility] [address] [place] [address], [facility] PHOSPHORUS BLOODon Phosphate [Mass/Vol] 2.3 mg/dL Low 2.5-5.0 [facility] Comment on above: Order Comment: No: D o not add to previous draw Performed By: #### 5 0608 #### [facility] [address] [place] [address], [facility] BASIC METABOLIC PANELon 10-31 Calcium [Mass/Vol] 7.7 mg/dL Low 8.6-10.3 [facility] Comment on above: Order Comment: Evalu ate Performed By: #### 4 1000, [id number], 01946 ####[facility] [place] [address], [facility] Chloride [Moles/Vol] 104 mmol/L Normal 98-107 [facility] Comment on above: Order Comment: Evalu ate Performed By: #### 4 1000, 86061, 23298 ####[facility] [place] [address], [place] CO2 [Moles/Vol] 27 mmol/L Normal 21-31 [facility] Comment on above: Order Comment: Evalu ate Performed By: #### 4 1000, 47223, 53399 ####[facility] [place] [address], [facility] Creatinine [Mass/Vol] 0.85 mg/dL Normal 0.60-1.20 [facility] Comment on above: Order Comment: Evalu ate Performed By: #### 4 1000, 42649, 86394 ####[facility] [place] [address], [facility] GFR/1.73 sq M.predicted among non-blacks MDRD (S/P/Bld) [Vol rate/Area] mL/min/{1.73_m2} Normal >60 [facility] Comment on above: Order Comment: Evalu ate Result Comment: [facility]'s estimated glomerular filtration rate (eGFR) will no longer include consideration of race in its calculation. The National Kidney Foundation's eGFR Task Force developed new recommendations for the estimation of the glomerular filtration rate in the [place] They recommend immediate implementation of the new equation refit without the race variable in all laboratories because the calculation does not include race. In addition to not including race in the calculation and reporting, it included diversity in its development, and has acceptable performance characteristics and potential consequences that do not disproportionately affect any one group of individuals. Performed By: #### 4 999, 22069, 62048 ####[facility] [place] [address], [facility] Glucose [Mass/Vol] 109 mg/dL High 70-100 [facility] Comment on above: Order Comment: Evalu ate Performed By: #### 4 999, 45355, 38613 ####[facility] [place] [address], [facility] Potassium [Moles/Vol] 4.1 mmol/L Normal 3.5-5.1 [facility] Comment on above: Order Comment: Evalu ate Performed By: #### 4 999, 20184, 81322 ####[facility] [place] [address], [facility] Sodium [Moles/Vol] 137 mmol/L Normal 136-145 [facility] Comment on above: Order Comment: Evalu ate Performed By: #### 4 1000, 67986, 98673 ####[facility] [place] [address], [facility] Urea nitrogen [Mass/Vol] 22 mg/dL Normal 7-25 [facility] Comment on above: Order Comment: Evalu ate Performed By: #### 4 1000, 36784, 78949 ####[facility] [place] [address], [facility] CBC W/DIFFon 11-25-2021 ABS IMM GRANS 0.0 10*3/uL Normal 0.0-0.2 [facility] Comment on above: Order Comment: No: D o not add to previous draw Performed By: #### 5 0608 #### [facility] [address] [place] [address], [facility] ABS NEUTROPHILS 5.7 10*3/uL Normal 1.6-7.6 The [facility] Comment on above: Order Comment: No: D o not add to previous draw Performed By: #### 5 0608 #### [facility] [address] [place] [address], [facility] Basophils (Bld) [#/Vol] 0.0 10*3/uL Normal 0.0-0.2 [facility] Comment on above: Order Comment: No: D o not add to previous draw Performed By: #### 5 0608 #### [facility] [address] [place] [address], [facility] Basophils/100 WBC (Bld) 0.1 % Normal 0.0-1.0 [facility] Comment on above: Order Comment: No: D o not add to previous draw Performed By: #### 5 0608 #### [facility] [address] [place] [address], [facility] Eosinophils (Bld) [#/Vol] 0.2 10*3/uL Normal 0.0-0.5 [facility] Comment on above: Order Comment: No: D o not add to previous draw Performed By: #### 5 0608 #### [facility] [address] [place] [address], [facility] Eosinophils/100 WBC (Bld) 2.4 % Normal 0.0-6.0 [facility] Comment on above: Order Comment: No: D o not add to previous draw Performed By: #### 5 0608 #### [facility] [address] [place] [address], [facility] Erythrocyte distribution width (RBC) [Ratio] 13.4 % Normal 11.5-15.0 [facility] Comment on above: Order Comment: No: D o not add to previous draw Performed By: #### 5 0608 #### [facility] [address] [place] [address], [facility] Hematocrit (Bld) [Volume fraction] 23.2 % Low 36.0-45.0 [facility] Comment on above: Order Comment: No: D o not add to previous draw Performed By: #### 5 0608 #### [facility] [address] [place] [address], [facility] Hemoglobin (Bld) [Mass/Vol] 7.4 g/dL Low 12.0-15.0 [facility] Comment on above: Order Comment: No: D o not add to previous draw Performed By: #### 5 0608 #### [facility] [address] [place] [address], [facility] IMMATURE GRANS 0.4 % Normal 0.0-1.0 [facility] Comment on above: Order Comment: No: D o not add to previous draw Performed By: #### 5 0608 #### [facility] [address] [place] [address], [facility] Lymphocytes (Bld) [#/Vol] 2.2 10*3/uL Normal 1.2-4.0 [facility] Comment on above: Order Comment: No: D o not add to previous draw Performed By: #### 5 0608 #### [facility] [address] [place] [address], [facility] Lymphocytes/100 WBC (Bld) 23.2 % Normal 20.0-45.0 [facility] Comment on above: Order Comment: No: D o not add to previous draw Performed By: #### 5 0608 #### [facility] [address] [place] [address], [facility] MCH (RBC) [Entitic mass] 30.7 pg Normal 27.0-33.0 [facility] Comment on above: Order Comment: No: D o not add to previous draw Performed By: #### 5 0608 #### [facility] [address] [facility] [place] [address], [facility] MCHC (RBC) [Mass/Vol] 31.9 g/dL Low 32.0-35.0 [facility] Comment on above: Order Comment: No: D o not add to previous draw Performed By: #### 5 0608 #### [facility] [address] [facility] [place] [address], [facility] MCV (RBC) [Entitic vol] 96.3 fL Normal 82.0-98.0 [facility] Comment on above: Order Comment: No: D o not add to previous draw Performed By: #### 5 0608 #### [facility] [address] [place] [address], [facility] Monocytes (Bld) [#/Vol] 1.2 10*3/uL High 0.1-1.0 [facility] Comment on above: Order Comment: No: D o not add to previous draw Performed By: #### 5 0608 #### [facility] [address] [place] [address], [facility] MONOS 12.8 % High 5.0-12.0 [facility] Comment on above: Order Comment: No: D o not add to previous draw Performed By: #### 5 0608 #### [facility] [address] [facility] [place] [address], [facility] Neutrophils/100 WBC (Bld) 61.1 % Normal 40.0-72.0 [facility] Comment on above: Order Comment: No: D o not add to previous draw Performed By: #### 5 0608 #### [facility] [address] [place] [address], [facility] Nucleated RBC/100 WBC (Bld) [Ratio] 0 % Normal 0-0 [facility] Comment on above: Order Comment: No: D o not add to previous draw Performed By: #### 5 0608 #### [facility] [address] [place] [address], [facility] PLAT CNT 145 10*3/uL Low 150-400 [facility] Comment on above: Order Comment: No: D o not add to previous draw Performed By: #### 5 0608 #### [facility] [address] [place] [address], [facility] RBC (Bld) [#/Vol] 2.41 10*6/uL Low 3.80-5.00 [facility] Comment on above: Order Comment: No: D o not add to previous draw Performed By: #### 5 0608 #### [facility] [address] [place] [address], [facility] WBC (Bld) [#/Vol] 9.31 10*3/uL Normal 4.00-10.60 [facility] Comment on above: Order Comment: No: D o not add to previous draw Performed By: #### 5 0608 #### [facility] [address] [facility] [place] [address], [facility] MAGNESIUM BLOODon 11-25-2021 Magnesium [Mass/Vol] 1.8 mg/dL Low 1.9-2.7 [facility] Comment on above: Order Comment: No: D o not add to previous draw Performed By: #### 4 1000, 66099, 20286 ####[facility] [place] [address], [facility] PHOSPHORUS BLOODon Phosphate [Mass/Vol] 1.8 mg/dL Low 2.5-5.0 [facility] Comment on above: Order Comment: Evalu ate Performed By: #### 4 1000, 34499, 72043 ####[facility] [place] [address], [facility] BASIC METABOLIC PANELon - Calcium [Mass/Vol] 7.6 mg/dL Low 8.6-10.3 [facility] Comment on above: Order Comment: Hemog lobin < 9 gm/dl with known cardiac or cerebrovascular disease Performed By: #### 8 6002 #### [facility] [address] [place] [address], [facility] Chloride [Moles/Vol] 105 mmol/L Normal 98-107 [facility] Comment on above: Order Comment: Hemog lobin < 9 gm/dl with known cardiac or cerebrovascular disease Performed By: #### 8 6002 #### [facility] [address] [place] [address], [place] CO2 [Moles/Vol] 28 mmol/L Normal 21-31 [facility] Comment on above: Order Comment: Hemog lobin < 9 gm/dl with known cardiac or cerebrovascular disease Performed By: #### 8 6002 #### [facility] [address] [place] [address], [place] Creatinine [Mass/Vol] 0.77 mg/dL Normal 0.60-1.20 [facility] Comment on above: Order Comment: Hemog lobin < 9 gm/dl with known cardiac or cerebrovascular disease Performed By: #### 8 6002 #### [facility] [address] [place] [address], [facility] GFR/1.73 sq M.predicted among non-blacks MDRD (S/P/Bld) [Vol rate/Area] mL/min/{1.73_m2} Normal >60 [facility] Comment on above: Order Comment: Hemog lobin < 9 gm/dl with known cardiac or cerebrovascular disease Result Comment: [facility]'s estimated glomerular filtration rate (eGFR) will no longer include consideration of race in its calculation. The National Kid[employer] Foundation's eGFR Task Force developed new recommendations for the estimation of the glomerular filtration rate in the [place] They recommend immediate implementation of the new equation refit without the race variable in all laboratories because the calculation does not include race. In addition to not including race in the calculation and reporting, it included diversity in its development, and has acceptable performance characteristics and potential consequences that do not disproportionately affect any one group of individuals. Performed By: #### 8 [id number] #### [facility] [address] [place] [address], [facility] Glucose [Mass/Vol] 103 mg/dL High 70-100 [facility] Comment on above: Order Comment: Hemog lobin < 9 gm/dl with known cardiac or cerebrovascular disease Performed By: #### 8 6002 #### [facility] [address] [place] [address], [facility] Potassium [Moles/Vol] 4.4 mmol/L Normal 3.5-5.1 [facility] Comment on above: Order Comment: Hemog lobin < 9 gm/dl with known cardiac or cerebrovascular disease Performed By: #### 8 6002 #### [facility] [address] [facility] [place] [address], [facility] Sodium [Moles/Vol] 138 mmol/L Normal 136-145 [facility] Comment on above: Order Comment: Hemog lobin < 9 gm/dl with known cardiac or cerebrovascular disease Performed By: #### 8 6002 #### [facility] [address] [place] [address], [facility] Urea nitrogen [Mass/Vol] 19 mg/dL Normal 7-25 [facility] Comment on above: Order Comment: Hemog lobin < 9 gm/dl with known cardiac or cerebrovascular disease Performed By: #### 8 6002 #### [facility] [address] [place] [address], [facility] CBC COMPLETE BLOOD COUNTon 0 - Erythrocyte distribution width (RBC) [Ratio] 13.5 % Normal 11.5-15.0 [facility] Comment on above: Order Comment: No: D o not add to previous draw Performed By: #### 5 0608 #### [facility] [address] [place] [address], [facility] Hematocrit (Bld) [Volume fraction] 26.0 % Low 36.0-45.0 [facility] Comment on above: Order Comment: No: D o not add to previous draw Performed By: #### 5 0608 #### [facility] [address] [place] [address], [facility] Hemoglobin (Bld) [Mass/Vol] 8.4 g/dL Low 12.0-15.0 [facility] Comment on above: Order Comment: No: D o not add to previous draw Performed By: #### 5 0608 #### [facility] [address] [place] [address], [facility] MCH (RBC) [Entitic mass] 31.1 pg Normal 27.0-33.0 [facility] Comment on above: Order Comment: No: D o not add to previous draw Performed By: #### 5 0608 #### [facility] [address] [place] [address], [facility] MCHC (RBC) [Mass/Vol] 32.3 g/dL Normal 32.0-35.0 [facility] Comment on above: Order Comment: No: D o not add to previous draw Performed By: #### 5 0608 #### [facility] [address] [place] [address], [facility] MCV (RBC) [Entitic vol] 96.3 fL Normal 82.0-98.0 [facility] Comment on above: Order Comment: No: D o not add to previous draw Performed By: #### 5 0608 #### [facility] [address] [place] [address], [facility] Nucleated RBC/100 WBC (Bld) [Ratio] 0 % Normal 0-0 [facility] Comment on above: Order Comment: No: D o not add to previous draw Performed By: #### 5 0608 #### [facility] [address] [place] [address], [facility] PLAT CNT 155 10*3/uL Normal 150-400 [facility] Comment on above: Order Comment: No: D o not add to previous draw Performed By: #### 5 0608 #### [facility] [address] [place] [address], [facility] RBC (Bld) [#/Vol] 2.70 10*6/uL Low 3.80-5.00 [facility] Comment on above: Order Comment: No: D o not add to previous draw Performed By: #### 5 0608 #### [facility] [address] [place] [address], [facility] WBC (Bld) [#/Vol] 11.01 10*3/uL High 4.00-10.60 [facility] Comment on above: Order Comment: No: D o not add to previous draw Performed By: #### 5 0608 #### [facility] [address] MAGNESIUM BLOODon 11-24-2021 Magnesium [Mass/Vol] 1.7 mg/dL Low 1.9-2.7 [facility] Comment on above: Order Comment: Hemog lobin < 9 gm/dl with known cardiac or cerebrovascular disease Performed By: #### 8 [id number] #### [facility] [address] Operative Reporton 2 Operative Report MR#: [id number] I [facility] Pt. Name: Myranda Yanes Room #: [id number] Discharge Date: Birthdate: 1940 OPERATIVE REPORT DATE OF SURGERY: 11/23/2021 SURGEON: Jaskaran Beal M.D. ASSISTANTS: 1. Manjinder Davis MD. 2. Jus Yancey MD. 3. Ankit Tobias MD. PREOPERATIVE DIAGNOSIS: Left tibial shaft fracture. POSTOPERATIVE DIAGNOSIS: Left tibial shaft fracture. PROCEDURE PERFORMED: Intramedullary nailing of left tibial shaft fracture. ANESTHESIA: General. BLOOD LOSS: Minimal. FLUIDS: Per anesthesia record. SPECIMENS: None. COMPLICATIONS: None. IMPLANTS: One [place] T2 alpha tibial nail measuring 11 x 345 with appropriate distal and proximal locking screws. INDICATION: The patient is a 81-year-old female, who is known to the [facility]opedic [facility]uma [facility], who arrived in our Emergency Department, complaints of left lower leg pain. X-rays were taken that demonstrated a left tibial shaft fracture. Risks and benefits were discussed and the patient elected to proceed with the procedure as mentioned above. PROCEDURE IN DETAIL: The patient was met in the preoperative area. Informed consent was obtained. Appropriate surgical site was marked. All questions raised by the patient were answered by attending physician as well as assistants present. The patient was taken back to the operative suite where general anesthesia was smoothly induced. The patient transferred over to a flat Dwight table with all bony prominences appropriately padded. The patient had nonsterile tourniquet applied to the left lower extremity. The patient's left lower extremity was then prepped and draped in standard sterile fashion. Appropriate surgical time-out was completed for patient, procedure, and laterality using 2 patient identifiers. We began our procedure by taking biplanar fluoroscopy of the left lower extremity demonstrating the fracture and this was then close reduced. We then made a standard suprapatellar approach to the left knee. Sharp incision was made through the skin and subcutaneous tissue down to level of the quadriceps tendon. Longitudinal incision was then made in the quadriceps tendon with care to not violate the paratenon to grossly. This was carried down to level of the suprapatellar pole. We then passed our sleeve with soft tissue protector through the suprapatellar pouch down to the level of the tibial plateau. A guide pin was then placed and biplanar fluoroscopy was appropriately used to position the pin. The pin was passed and then opening reamer was passed and a guidewire was passed. We then directed our attention to the fracture site. Guidewire was then passed appropriately and biplanar fluoroscopy was taken to confirm appropriate fracture reduction as well as pin placement. We then began reaming. We placed a size 12 reamer down the length of the tibia and then placed our size 11 nail. Prior to this, the wound was copiously irrigated with Betadine and normal saline. Once the nail was placed, once again, biplanar fluoroscopy was used to confirm appropriate reduction of the left tibial shaft fracture as well as appropriate length and rotational alignment. We then did perfect circles for the distal interlock screws and used the guided jig for the proximal lockers. Two screws were placed both proximally and distally. The wounds were then copiously irrigated with Betadine and normal saline. All hardware was removed and final x-rays were taken to confirm appropriate fracture reduction, length of hardware and length of screws. The wound was then closed using 0 Vicryl for the quadriceps tendon, 2-0 for the deep dermals and kaitlynn for the skin. The patient's wounds were dressed with Xeroform, 4x4s, and Tegaderm. The patient was awoken from general anesthesia, transferred to PACU for recovery. The patient tolerated the procedure well. The patient will return to the floor with appropriate antibiotics as well as DVT prophylaxis given the patient's poor bone health to remain nonweightbearing to left lower extremity. The patient will follow up in clinic in 10-[address] Beal was present for all critical portions of the case and made all critical decisions regarding the patient's care. Electronically Signed by: Jaskaran Beal M.D. 11/24/2021 11:42 A Jaskaran Beal M.D. I was present for the mora and critical portions and I was otherwise immediately available to assist. Date Dict: 11/23/2021/05:34 P/Manjinder Davis MD Date Trans: 11/24/2021 04:10 A/lalo KILGORE_JN:[id number] cc: Whitney Goodman M.D. [address] [facility] [id number] [place] [facility] 2 Phosphate [Mass/Vol] 3.7 mg/dL Normal 2.5-5.0 [facility] Comment on above: Order Comment: Hemog lobin < 9 gm/dl with known cardiac or cerebrovascular disease Performed By: #### 8 [id number] #### [facility] [address] *MRSA/MSSA DNA NASALon 11-23 *MRSA/MSSA DNA NASAL Clinical Report: (D) Specimen: NASAL SWAB Collected: 11/23/2021 15:10 Status: Final Last Updated: 11/23/2021 22:50 MSSA DNA (Final) Negative MRSA DNA (Final) Negative Normal [facility] Comment on above: Performed By: #### 3 1595 #### [facility] [address] [facility] [place] [address], [facility] BASIC METABOLIC PANELon 10-31 Calcium [Mass/Vol] 7.9 mg/dL Low 8.6-10.3 [facility] Comment on above: Order Comment: No: D o not add to previous draw Performed By: #### 5 0608 #### [facility] [address] [place] [address], [facility] Chloride [Moles/Vol] 104 mmol/L Normal 98-107 [facility] Comment on above: Order Comment: No: D o not add to previous draw Performed By: #### 5 0608 #### [facility] [address] [facility] [place] [address], [facility] CO2 [Moles/Vol] 26 mmol/L Normal 21-31 [facility] Comment on above: Order Comment: No: D o not add to previous draw Performed By: #### 5 0608 #### [facility] [address] [place] [address], [facility] Creatinine [Mass/Vol] 0.83 mg/dL Normal 0.60-1.20 [facility] Comment on above: Order Comment: No: D o not add to previous draw Performed By: #### 5 0608 #### [facility] [address] [place] [address], [place] GFR/1.73 sq M.predicted among blacks MDRD (S/P/Bld) [Vol rate/Area] mL/min/{1.73_m2} Normal >60 [facility] Comment on above: Order Comment: No: D o not add to previous draw Result Comment: Calc ulation may not be valid for patients over 70 years Performed By: #### 5 0608 #### [facility] [address] [place] [address], [place] GFR/1.73 sq M.predicted among non-blacks MDRD (S/P/Bld) [Vol rate/Area] mL/min/{1.73_m2} Normal >60 [facility] Comment on above: Order Comment: No: D o not add to previous draw Result Comment: Calc ulation may not be valid for patients over 70 years Performed By: #### 5 0608 #### [facility] [address] [place] [address], [place] Glucose [Mass/Vol] 104 mg/dL High 70-100 [facility] Comment on above: Order Comment: No: D o not add to previous draw Performed By: #### 5 0608 #### [facility] [address] [place] [address], [place] Potassium [Moles/Vol] 4.2 mmol/L Normal 3.5-5.1 [facility] Comment on above: Order Comment: No: D o not add to previous draw Performed By: #### 5 0608 #### [facility] [address] [place] [address], [place] Sodium [Moles/Vol] 136 mmol/L Normal 136-145 [facility] Comment on above: Order Comment: No: D o not add to previous draw Performed By: #### 5 0608 #### [facility] [address] [place] [address], [place] Urea nitrogen [Mass/Vol] 25 mg/dL Normal 7-25 [facility] Comment on above: Order Comment: No: D o not add to previous draw Performed By: #### 5 0608 #### [facility] [address] [place] [address], [facility] CBC COMPLETE BLOOD COUNTon 0 11-23-2021 Erythrocyte distribution width (RBC) [Ratio] 13.5 % Normal 11.5-15.0 [facility] Comment on above: Order Comment: No: D o not add to previous draw Performed By: #### 5 0608 #### [facility] [address] [facility] [place] [address], [facility] Hematocrit (Bld) [Volume fraction] 22.7 % Low 36.0-45.0 [facility] Comment on above: Order Comment: No: D o not add to previous draw Performed By: #### 5 0608 #### [facility] [address] [place] [address], [facility] Hemoglobin (Bld) [Mass/Vol] 7.3 g/dL Low 12.0-15.0 [facility] Comment on above: Order Comment: No: D o not add to previous draw Performed By: #### 5 0608 #### [facility] [address] [place] [address], [facility] MCH (RBC) [Entitic mass] 31.2 pg Normal 27.0-33.0 [facility] Comment on above: Order Comment: No: D o not add to previous draw Performed By: #### 5 0608 #### [facility] [address] [place] [address], [facility] MCHC (RBC) [Mass/Vol] 32.2 g/dL Normal 32.0-35.0 [facility] Comment on above: Order Comment: No: D o not add to previous draw Performed By: #### 5 0608 #### [facility] [address] MCV (RBC) [Entitic vol] 97.0 fL Normal 82.0-98.0 [facility] Comment on above: Order Comment: No: D o not add to previous draw Performed By: #### 5 0608 #### [facility] [address] [place] [address], [facility] Nucleated RBC/100 WBC (Bld) [Ratio] 0 % Normal 0-0 [facility] Comment on above: Order Comment: No: D o not add to previous draw Performed By: #### 5 0608 #### [facility] [address] [place] [address], [facility] PLAT CNT 146 10*3/uL Low 150-400 The [facility] Comment on above: Order Comment: No: D o not add to previous draw Performed By: #### 5 0608 #### [facility] [address] [place] [address], [facility] RBC (Bld) [#/Vol] 2.34 10*6/uL Low 3.80-5.00 [facility] Comment on above: Order Comment: No: D o not add to previous draw Performed By: #### 5 0608 #### [facility] [address] [place] [address], [facility] WBC (Bld) [#/Vol] 9.70 10*3/uL Normal 4.00-10.60 [facility] Comment on above: Order Comment: No: D o not add to previous draw Performed By: #### 5 0608 #### [facility] [address] [place] [address], [facility] HEMOGLOBINon 11-23-2021 Hemoglobin (Bld) [Mass/Vol] 9.5 g/dL Low 12.0-15.0 [facility] Comment on above: Order Comment: No: D o not add to previous draw Performed By: #### 5 0608 #### [facility] [address] [place] [address], [facility] MAGNESIUM BLOODon 11-23-2021 Magnesium [Mass/Vol] 1.7 mg/dL Low 1.9-2.7 [facility] Comment on above: Order Comment: No: D o not add to previous draw Performed By: #### 5 0608 #### [facility] [address] [place] [address], [facility] PHOSPHORUS BLOODon 2 Phosphate [Mass/Vol] 2.1 mg/dL Low 2.5-5.0 [facility] Comment on above: Order Comment: No: D o not add to previous draw Performed By: #### 5 0608 #### [facility] [address] [place] [address], [facility] POC GLUCOSE LABon 11-23-2021 Glucose [Mass/Vol] 82 mg/dL Normal 70-100 [facility] Comment on above: Performed By: #### 8 5499 #### [facility] [address] [place] [address], [facility] RBC'S 1 UNITon 11-23-2021 CROSSMATCH INTERP 1 COMP Normal [facility] Comment on above: Performed By: #### 8 6001 ####[facility] [facility].[address] PRODUCT CODE 1 E0336 Normal [facility] Comment on above: Performed By: #### 8 6001 ####[facility] [facility].[address] PRODUCT STATUS 1 RE Normal The [facility] Comment on above: Result Comment: Resu lt changed by IF on 11/23/2021 16:20. The previous value was XM. Result changed by IF on 11/23/2021 18:36. The previous value was IS. Result changed by IF on 11/25/2021 07:10. The previous value was XM. Performed By: #### 8 6001 ####[facility] [place] [address], [facility] UNIT ABO 1 A Normal [facility] Comment on above: Performed By: #### 8 6001 ####[facility] [place] [address], [facility] UNIT ID 1 [id number] Normal [facility] Comment on above: Performed By: #### 8 6001 ####[facility] [place] [address], [facility] UNIT RH 1 Positive Normal [facility] Comment on above: Performed By: #### 8 6001 ####[facility] [place] [address], [facility] RBC'S 2 UNITSon 11-23-2021 CROSSMATCH INTERP 1 COMP Normal [facility] Comment on above: Order Comment: Hemog lobin < 9 gm/dl with known cardiac or cerebrovascular disease Performed By: #### 8 6002 #### [facility] [address] [place] [address], [facility] CROSSMATCH INTERP 2 COMP Normal [facility] Comment on above: Order Comment: Hemog lobin < 9 gm/dl with known cardiac or cerebrovascular disease Performed By: #### 8 6002 #### [facility] [address] [place] [address], [facility] PRODUCT CODE 1 E0336 Normal [facility] Comment on above: Order Comment: Hemog lobin < 9 gm/dl with known cardiac or cerebrovascular disease Performed By: #### 8 6002 #### [facility] [address] [place] [address], [facility] PRODUCT CODE 2 E0336 Normal [facility] Comment on above: Order Comment: Hemog lobin < 9 gm/dl with known cardiac or cerebrovascular disease Performed By: #### 8 6002 #### [facility] [address] PRODUCT STATUS 1 RE Normal [facility] Comment on above: Order Comment: Hemog lobin < 9 gm/dl with known cardiac or cerebrovascular disease Result Comment: Resu lt changed by IF on 11/23/2021 16:20. The previous value was XM. Result changed by IF on 11/23/2021 18:36. The previous value was IS. Result changed by IF on 11/25/2021 07:10. The previous value was XM. Performed By: #### 8 6002 #### [facility] [address] PRODUCT STATUS 2 PT Normal The [facility] Comment on above: Order Comment: Hemog lobin < 9 gm/dl with known cardiac or cerebrovascular disease Result Comment: Resu lt changed by IF on 11/23/2021 10:46. The previous value was XM. Result changed by IF on 11/24/2021 00:30. The previous value was IS. Performed By: #### 8 6002 #### [facility] [address] [place] [address], [facility] UNIT ABO 1 A Normal [facility] Comment on above: Order Comment: Hemog lobin < 9 gm/dl with known cardiac or cerebrovascular disease Performed By: #### 8 6002 #### [facility] [address] [place] [address], [facility] UNIT ABO 2 A Normal [facility] Comment on above: Order Comment: Hemog lobin < 9 gm/dl with known cardiac or cerebrovascular disease Performed By: #### 8 6002 #### [facility] [address] [place] [address], [facility] UNIT ID 1 [id number] Normal [facility] Comment on above: Order Comment: Hemog lobin < 9 gm/dl with known cardiac or cerebrovascular disease Performed By: #### 8 6002 #### [facility] [address] [facility] [address] UNIT ID 2 [id number] Normal [facility] Comment on above: Order Comment: Hemog lobin < 9 gm/dl with known cardiac or cerebrovascular disease Performed By: #### 8 6002 #### [facility] [address] [facility] [address] UNIT RH 1 Positive Normal [facility] Comment on above: Order Comment: Hemog lobin < 9 gm/dl with known cardiac or cerebrovascular disease Performed By: #### 8 6002 #### [facility] [address] [facility] [address], [facility] UNIT RH 2 Positive Normal [facility] Comment on above: Order Comment: Hemog lobin < 9 gm/dl with known cardiac or cerebrovascular disease Performed By: #### 8 6002 #### [facility] [address] [facility]. [address] TIBIA FIBULA LEFTon 11-24-19 22 TIBIA FIBULA LEFT [facility] Department of Radiology [address] [place] [id number] ======== Patient Name: MYRANDA YANES : 1940 Sex: F Age: Race: White Pt. Location: [id number] Patient Status: I Ordered Date: 11/23/2021 6:45:00 AM Completed Date: 11/23/2021 08:19 PM Requesting Provider: JASKARAN BEAL Attending Provider: YANICK HEALY Report Copy To: Signs & Symptoms: IM rodding left tibia History: Comments: IM rodding left tibia Exam: TIBIA FIBULA LEFT ======== TIBIA FIBULA LEFT HISTORY: Fracture fixation. COMPARISON: 11/21/2021. IMPRESSION: 1. There are 21 images, total time 1 minute 47 seconds. Fluoroscopic guidance provided. Electronically signed: Dread Wills. Transcribed by: [email or web address], User Resident: Electronically Signed by: DREAD WILLS @ 11/24/2021 02:58 PM Normal [facility] Comment on above: Order Comment: IM ro dding left tibia BASIC METABOLIC PANELon 10-31 Calcium [Mass/Vol] 8.3 mg/dL Low 8.6-10.3 [facility] Comment on above: Order Comment: No: D o not add to previous draw Performed By: #### 4 1000, 90227, 24726 ####[facility] [place] [address], [facility] Chloride [Moles/Vol] 106 mmol/L Normal 98-107 [facility] Comment on above: Order Comment: No: D o not add to previous draw Performed By: #### 4 1000, 86385, 49836 ####[facility] [place] [address], [place] CO2 [Moles/Vol] 27 mmol/L Normal 21-31 [facility] Comment on above: Order Comment: No: D o not add to previous draw Performed By: #### 4 1000, 91240, 11568 ####[facility] [address], [place] Creatinine [Mass/Vol] 0.88 mg/dL Normal 0.60-1.20 [facility] Comment on above: Order Comment: No: D o not add to previous draw Performed By: #### 4 1000, 37857, 80835 ####[facility] [place] [address], [place] GFR/1.73 sq M.predicted among blacks MDRD (S/P/Bld) [Vol rate/Area] mL/min/{1.73_m2} Normal >60 [facility] Comment on above: Order Comment: No: D o not add to previous draw Result Comment: Calc ulation may not be valid for patients over 70 years Performed By: #### 4 999, 93257, 41925 ####[facility] [place] [address], [place] GFR/1.73 sq M.predicted among non-blacks MDRD (S/P/Bld) [Vol rate/Area] mL/min/{1.73_m2} Normal >60 [facility] Comment on above: Order Comment: No: D o not add to previous draw Result Comment: Calc ulation may not be valid for patients over 70 years Performed By: #### 4 999, 50812, 24568 ####[facility] [place] [address], [place] Glucose [Mass/Vol] 103 mg/dL High 70-100 [facility] Comment on above: Order Comment: No: D o not add to previous draw Performed By: #### 4 999, 55901, 58048 ####[facility] [facility] [place] [address], [place] Potassium [Moles/Vol] 4.4 mmol/L Normal 3.5-5.1 [facility] Comment on above: Order Comment: No: D o not add to previous draw Performed By: #### 4 999, 49605, 37547 ####[facility] [facility] [place] [address], [place] Sodium [Moles/Vol] 139 mmol/L Normal 136-145 [facility] Comment on above: Order Comment: No: D o not add to previous draw Performed By: #### 4 999, 09778, 29394 ####[facility] [place] [address], [facility] Urea nitrogen [Mass/Vol] 30 mg/dL High 7-25 [facility] Comment on above: Order Comment: No: D o not add to previous draw Performed By: #### 4 1000, 28482, 61959 ####[facility] [place] [address], [facility] CBC COMPLETE BLOOD COUNTon 0 - Erythrocyte distribution width (RBC) [Ratio] 13.8 % Normal 11.5-15.0 [facility] Comment on above: Order Comment: No: D o not add to previous draw Performed By: #### 5 0608 #### [facility] [address] [place] [address], [facility] Hematocrit (Bld) [Volume fraction] 27.9 % Low 36.0-45.0 [facility] Comment on above: Order Comment: No: D o not add to previous draw Performed By: #### 5 0608 #### [facility] [address] [place] [address], [facility] Hemoglobin (Bld) [Mass/Vol] 8.7 g/dL Low 12.0-15.0 [facility] Comment on above: Order Comment: No: D o not add to previous draw Performed By: #### 5 0608 #### [facility] [address] [place] [address], [facility] MCH (RBC) [Entitic mass] 30.7 pg Normal 27.0-33.0 [facility] Comment on above: Order Comment: No: D o not add to previous draw Performed By: #### 5 0608 #### [facility] [address] [place] [address], [facility] MCHC (RBC) [Mass/Vol] 31.2 g/dL Low 32.0-35.0 [facility] Comment on above: Order Comment: No: D o not add to previous draw Performed By: #### 5 0608 #### [facility] [address] [place] [address], [facility] MCV (RBC) [Entitic vol] 98.6 fL High 82.0-98.0 [facility] Comment on above: Order Comment: No: D o not add to previous draw Performed By: #### 5 0608 #### [facility] [address] [place] [address], [facility] Nucleated RBC/100 WBC (Bld) [Ratio] 0 % Normal 0-0 [facility] Comment on above: Order Comment: No: D o not add to previous draw Performed By: #### 5 0608 #### [facility] [address] [place] [place] [address], [facility] PLAT CNT 196 10*3/uL Normal 150-400 [facility] Comment on above: Order Comment: No: D o not add to previous draw Performed By: #### 5 0608 #### [facility] [address] [facility] [address], [facility] RBC (Bld) [#/Vol] 2.83 10*6/uL Low 3.80-5.00 [facility] Comment on above: Order Comment: No: D o not add to previous draw Performed By: #### 5 0608 #### [facility] [address] [place] [address], [facility] WBC (Bld) [#/Vol] 9.05 10*3/uL Normal 4.00-10.60 [facility] Comment on above: Order Comment: No: D o not add to previous draw Performed By: #### 5 0608 #### [facility] [address] [place] [address], [facility] MAGNESIUM BLOODon 11-22-2021 Magnesium [Mass/Vol] 2.0 mg/dL Normal 1.9-2.7 [facility] Comment on above: Order Comment: No: D o not add to previous draw Performed By: #### 4 1000, 35255, 63858 ####[facility] [facility] [place] [address], [facility] PHOSPHORUS BLOODon 2 Phosphate [Mass/Vol] 3.1 mg/dL Normal 2.5-5.0 [facility] Comment on above: Order Comment: No: D o not add to previous draw Performed By: #### 4 1000, 01038, 13279 ####[facility] [place] [address], [facility] URINALYSIS REFLEXon 11-23-19 22 Appearance (U) SL CLOUDY Abnormal CLEAR [facility] Comment on above: Order Comment: No: D o not add to previous drawCriteria for reflexing a culture was not met. Please call the lab [id number] within 24 hours of collection time if culture is needed Performed By: #### 3 2043 #### [facility] [address] [place] [address], [facility] Bilirubin Ql (U) Negative Normal NEGATIVE The [facility] Comment on above: Order Comment: No: D o not add to previous drawCriteria for reflexing a culture was not met. Please call the lab [email or web address] within 24 hours of collection time if culture is needed Performed By: #### 3 2043 #### [facility] [address] [place] [address], [facility] Color (U) YELLOW Normal YELLOW [facility] Comment on above: Order Comment: No: D o not add to previous drawCriteria for reflexing a culture was not met. Please call the lab [id number] within 24 hours of collection time if culture is needed Performed By: #### 3 2043 #### [facility] [address] [place] [address], [place] EPIS NONE SEEN Normal FEW,OCC,NONE SEEN [facility] Comment on above: Order Comment: No: D o not add to previous drawCriteria for reflexing a culture was not met. Please call the lab [id number] within 24 hours of collection time if culture is needed Performed By: #### 3 2043 #### [facility] [address] [place] [address], [facility] Glucose Ql (U) Negative Normal NEGATIVE [facility] Comment on above: Order Comment: No: D o not add to previous drawCriteria for reflexing a culture was not met. Please call the lab [id number] within 24 hours of collection time if culture is needed Performed By: #### 3 2043 #### [facility] [address] [place] [address], [facility] Hemoglobin Ql (U) MODERATE Abnormal NEGATIVE [facility] Comment on above: Order Comment: No: D o not add to previous drawCriteria for reflexing a culture was not met. Please call the lab [phone] within 24 hours of collection time if culture is needed Performed By: #### 3 2043 #### [facility] [address] [place] [address], [facility] KETONE Negative Normal NEGATIVE [facility] Comment on above: Order Comment: No: D o not add to previous drawCriteria for reflexing a culture was not met. Please call the lab [email or web address] within 24 hours of collection time if culture is needed Performed By: #### 3 2043 #### [facility] [address] [place], [place] [address], [facility] [place] BEV Negative Normal NEGATIVE [facility] Comment on above: Order Comment: No: D o not add to previous drawCriteria for reflexing a culture was not met. Please call the lab [id number] within 24 hours of collection time if culture is needed Performed By: #### 3 2043 #### [facility] [address] [place] [address], [place] MUCUS THREADS MOD Abnormal NONE SEEN The [facility] Comment on above: Order Comment: No: D o not add to previous drawCriteria for reflexing a culture was not met. Please call the lab [id number] within 24 hours of collection time if culture is needed Performed By: #### 3 2043 #### [facility] [address] [facility] [place] [address], [facility] Nitrite Ql (U) Positive Abnormal NEGATIVE The [facility] Comment on above: Order Comment: No: D o not add to previous drawCriteria for reflexing a culture was not met. Please call the lab [id number] within 24 hours of collection time if culture is needed Performed By: #### 3 2043 #### [facility] [address] [facility] [place] [address], [facility] pH (U) 5.0 [pH] Normal 5.0-8.0 [facility] Comment on above: Order Comment: No: D o not add to previous drawCriteria for reflexing a culture was not met. Please call the lab [id number] within 24 hours of collection time if culture is needed Performed By: #### 3 2043 #### [facility] [address] [place] [address], [facility] Protein Ql (U) Negative Normal NEGATIVE The [facility] Comment on above: Order Comment: No: D o not add to previous drawCriteria for reflexing a culture was not met. Please call the lab [id number] within 24 hours of collection time if culture is needed Performed By: #### 3 2043 #### [facility] [address] [facility] [address], [facility] RBC 0-2 Abnormal NONE SEEN [facility] Comment on above: Order Comment: No: D o not add to previous drawCriteria for reflexing a culture was not met. Please call the lab [id number] within 24 hours of collection time if culture is needed Performed By: #### 3 2043 #### [facility] [address] [place] [address] [place] [id number], [facility] SPEC GRAV 1.019 Normal 1.015-1.020 The [facility] Comment on above: Order Comment: No: D o not add to previous drawCriteria for reflexing a culture was not met. Please call the lab [id number] within 24 hours of collection time if culture is needed Performed By: #### 3 4 #### [facility] [address] [place] [address], [facility] WBC UA 0-2 Abnormal NONE SEEN [facility] Comment on above: Order Comment: No: D o not add to previous drawCriteria for reflexing a culture was not met. Please call the lab [id number] within 24 hours of collection time if culture is needed Performed By: #### 3 4 #### [facility] [address] [facility]. [address] APTTon 11-21-2021 aPTT Coag (Bld) [Time] 28.9 s Normal 25.0-35.0 [facility] Comment on above: Result Comment: ALL RESULTS MUST BE INTERPRETED WITH RESPECT TO BLOOD DRAWING ARTIFACT OR DILUTION ERROR OF ANTICOAGULANT AT THE TIME OF SAMPLING. THE APTT SHOULD NOT BE USED TO MONITOR UNFRACTIONATED HEPARIN THERAPY, THIS LABORATORY NO LONGER HAS AN ESTABLISHED THERAPEUTIC RANGE BASED ON THE APTT. IT IS RECOMMENDED THAT THE [facility] - HEPARIN ASSAY (ANTI-XA ACTIVITY) BE USED FOR THIS PURPOSE. Performed By: #### 5 0608 #### [facility] [address] CBC AUTO DIFFon 11-21-2021 BASO # 0.0 103/ul Normal 0.0-0.1 [facility] Comment on above: Performed By: #### C BC ####[facility] C[address] [place], [place] [address]Dr. Arnoldo Taylor Basophils/100 WBC (Bld) 0.2 % Normal 0.2-2.0 [facility] Comment on above: Performed By: #### C BC ####[facility] [address] [place] [address]Dr. Yilan Taylor EO # 0.2 103/ul Normal 0.0-0.7 [facility] Comment on above: Performed By: #### C BC ####[facility] Aovkcvmhsl52[address] [place] [address]Dr. Arnoldo Taylor Eosinophils/100 WBC (Bld) 1.1 % Normal 0.9-7.0 [facility] Comment on above: Performed By: #### C BC ####[facility] Yasvrglnnx[address] [place], [place] [address]Dr. Arnoldo Taylor Erythrocyte distribution width (RBC) [Ratio] 13.8 % Normal 11.0-15.0 [facility] Comment on above: Performed By: #### C BC ####[facility] Zxgywjgtpo[address] [place], [place] [address]Dr. Arnoldo Taylor Hematocrit (Bld) [Volume fraction] 32.1 % Critically low 36.0-48.0 [facility] Comment on above: Performed By: #### C BC ####[facility] Oyxrnsmsqa[address] [place], [place] [address]Dr. Arnoldo Taylor Hemoglobin (Bld) [Mass/Vol] 10.2 g/dL Critically low 12.0-16.0 [facility] Comment on above: Performed By: #### C BC ####[facility] T[address]bkms[address] [place], [place] [address]Dr. Arnoldo Taylor IG # 0.08 10e3/ul Critically high 0.00-0.03 [facility] Comment on above: Performed By: #### C BC ####[facility] Fumbfosxin[address] [place] [address]Dr. Arnoldo Taylor IG % 0.6 % Critically high 0.0-0.5 [facility] Comment on above: Performed By: #### C BC ####[facility] Jcpoghvv[address] [place], [place] [address]Dr. Arnoldo Taylor LYMPH # 1.1 103/ul Critically low 1.2-3.8 The [facility] Comment on above: Performed By: #### C BC ####[facility] Q[address]ysudqryg[address] [place], [place] [address]Dr. Arnoldo Taylor Lymphocytes/100 WBC (Bld) 8.0 % Critically low 20.5-60.0 [facility] Comment on above: Performed By: #### C BC ####[facility] Sthkyzrvdz[address] [place] [id number]. Arnoldo Taylor MANUAL DIFF REQ NO Normal The [facility] Comment on above: Performed By: #### C BC ####[facility] F[address]jawumw[address] [place] [id number]. Arnoldo Taylor MCH (RBC) [Entitic mass] 30.7 pg Normal 26.7-34.0 [facility] Comment on above: Performed By: #### C BC ####[facility] Jgvcgnucrz[address] [place], [place] [address]Dr. Arnoldo Taylor MCHC (RBC) [Mass/Vol] 31.8 g/dL Normal 29.9-35.2 [facility] Comment on above: Performed By: #### C BC ####[facility] Wnupynugcn[address] [place], [place] [address]Dr. Arnoldo Taylor MCV (RBC) [Entitic vol] 96.7 fL Normal 81.0-99.0 [facility] Comment on above: Performed By: #### C BC ####[facility] Rxtgofokwi16[address] [place] [id number]. Arnoldo Brandon MONO # 1.2 103/ul Critically high 0.3-0.8 The [facility] Comment on above: Performed By: #### C BC ####[facility] Etxpvlrwak[address] [place] [address]Dr. Arnoldo Taylor Monocytes/100 WBC (Bld) 8.6 % Normal 1.7-12.0 [facility] Comment on above: Performed By: #### C BC ####[facility] Hry[address]apu[address] [place], [place] [address]Dr. Lynettesujata Taylor NEUT # 10.9 103/ul Critically high 1.4-6.5 [facility] Comment on above: Performed By: #### C BC ####[facility] Zbzesngfnp[address] [place], [place] [address]Dr. Arnoldo Taylor Neutrophils/100 WBC (Bld) 81.5 % Critically high 43.0-75.0 [facility] Comment on above: Performed By: #### C BC ####[facility] Fkzynckoil6528 [place], [place] [address]Zz. Arnoldo Taylor Platelet mean volume (Bld) [Entitic vol] 8.8 fL Critically low 9.5-13.5 [facility] Comment on above: Performed By: #### C BC ####[facility] Ldvlqnbqrh6828 [place], [place] [address]Cj. Arnoldo Taylor PLT 242 103/ul Normal 150-450 [facility] Comment on above: Performed By: #### C BC ####[facility] Ecbdtzeqgf1749 [place], [place] [address]Ja. Arnoldo Taylor RBC 3.32 106/ul Critically low 4.20-5.40 [facility] Comment on above: Performed By: #### C BC ####[facility] Qepedepvio4432 [place], [place] [address]Bg. Arnoldo Taylor WBC 13.4 103/ul Critically high 4.0-11.0 [facility] Comment on above: Performed By: #### C BC ####[facility] Yzmxonhsin6706 [place], [place] [address]Pe. Arnoldo Taylor CBC W/DIFFon 11-21-2021 ABS IMM GRANS 0.1 10*3/uL Normal 0.0-0.2 [facility] Comment on above: Performed By: #### 5 0608 #### [facility] [address] [place] [address], [facility] ABS NEUTROPHILS 9.6 10*3/uL High 1.6-7.6 The [facility] Comment on above: Performed By: #### 5 0608 #### [facility] [address] [place] [address], [facility] Basophils (Bld) [#/Vol] 0.0 10*3/uL Normal 0.0-0.2 [facility] Comment on above: Performed By: #### 5 0608 #### [facility] [address] [facility] [place] [address], [facility] Basophils/100 WBC (Bld) 0.2 % Normal 0.0-1.0 [facility] Comment on above: Performed By: #### 5 0608 #### [facility] [address] [place] [address], [facility] Eosinophils (Bld) [#/Vol] 0.1 10*3/uL Normal 0.0-0.5 [facility] Comment on above: Performed By: #### 5 0608 #### [facility] [address] [place] [address], [facility] Eosinophils/100 WBC (Bld) 0.5 % Normal 0.0-6.0 [facility] Comment on above: Performed By: #### 5 0608 #### [facility] [address] [facility] [address] Erythrocyte distribution width (RBC) [Ratio] 13.8 % Normal 11.5-15.0 [facility] Comment on above: Performed By: #### 5 0608 #### [facility] [address] [facility] [place] [address], [facility] Hematocrit (Bld) [Volume fraction] 31.8 % Low 36.0-45.0 [facility] Comment on above: Performed By: #### 5 0608 #### [facility] [address] [facility] [address] Hemoglobin (Bld) [Mass/Vol] 9.9 g/dL Low 12.0-15.0 [facility] Comment on above: Performed By: #### 5 0608 #### [facility] [address] [place] [address], [facility] IMMATURE GRANS 0.4 % Normal 0.0-1.0 [facility] Comment on above: Performed By: #### 5 0608 #### [facility] [address] [place] [address], [facility] Lymphocytes (Bld) [#/Vol] 1.9 10*3/uL Normal 1.2-4.0 [facility] Comment on above: Performed By: #### 5 0608 #### [facility] [address] [facility] [address], [facility] Lymphocytes/100 WBC (Bld) 14.7 % Low 20.0-45.0 [facility] Comment on above: Performed By: #### 5 0608 #### [facility] [address] [facility] [address], [facility] MCH (RBC) [Entitic mass] 30.5 pg Normal 27.0-33.0 [facility] Comment on above: Performed By: #### 5 0608 #### [facility] [address] [facility]. [address] MCHC (RBC) [Mass/Vol] 31.1 g/dL Low 32.0-35.0 [facility] Comment on above: Performed By: #### 5 0608 #### [facility] [address] [place] [address], [facility] MCV (RBC) [Entitic vol] 97.8 fL Normal 82.0-98.0 [facility] Comment on above: Performed By: #### 5 0608 #### [facility] [address] [facility] [address], [facility] Monocytes (Bld) [#/Vol] 1.5 10*3/uL High 0.1-1.0 [facility] Comment on above: Performed By: #### 5 0608 #### [facility] [address] [place] [address], [facility] MONOS 11.2 % Normal 5.0-12.0 [facility] Comment on above: Performed By: #### 5 0608 #### [facility] [address] [facility] [place] [address], [facility] Neutrophils/100 WBC (Bld) 73.0 % High 40.0-72.0 [facility] Comment on above: Performed By: #### 5 0608 #### [facility] [address] [facility] [address], [facility] Nucleated RBC/100 WBC (Bld) [Ratio] 0 % Normal 0-0 [facility] Comment on above: Performed By: #### 5 0608 #### [facility] [address] [facility] [address], [facility] PLAT CNT 261 10*3/uL Normal 150-400 [facility] Comment on above: Performed By: #### 5 0608 #### [facility] [address] [facility]. [address] RBC (Bld) [#/Vol] 3.25 10*6/uL Low 3.80-5.00 [facility] Comment on above: Performed By: #### 5 0608 #### [facility] [address] [facility]. [address] WBC (Bld) [#/Vol] 13.09 10*3/uL High 4.00-10.60 [facility] Comment on above: Performed By: #### 5 0608 #### [facility] [address] COMP METABOLIC PANELon 11-21 Albumin [Mass/Vol] 3.5 g/dL Normal 3.5-5.7 [facility] Comment on above: Performed By: #### 0 0121, 84364 ####[facility] [facility] ALKALINE PHOSPH 138 IU/L High 34-104 [facility] Comment on above: Performed By: #### 0 0121, 39043 ####[facility] ALT [Catalytic activity/Vol] 22 U/L Normal 7-52 [facility] Comment on above: Performed By: #### 0 0121, 93711 ####[facility] [place] [address], [facility] AST [Catalytic activity/Vol] 21 U/L Normal 13-39 [facility] Comment on above: Performed By: #### 0 0121, 50580 ####[facility] [place] [address], [place] Bilirubin [Mass/Vol] 0.9 mg/dL Normal 0.3-1.0 [facility] Comment on above: Performed By: #### 0 0121, 83382 ####[facility] [place] [address], [place] Calcium [Mass/Vol] 8.8 mg/dL Normal 8.6-10.3 [facility] Comment on above: Performed By: #### 0 012, 40082 ####[facility] [place] [address], [place] Chloride [Moles/Vol] 105 mmol/L Normal 98-107 [facility] Comment on above: Performed By: #### 0 0121, 07348 ####[facility] [place] [address], [place] CO2 [Moles/Vol] 28 mmol/L Normal 21-31 [facility] Comment on above: Performed By: #### 0 0121, 20008 ####[facility] [place] [address], [place] Creatinine [Mass/Vol] 0.94 mg/dL Normal 0.60-1.20 [facility] Comment on above: Performed By: #### 0 0121, 40064 ####[facility] [place] [address], [place] eGFR- non- 57 ml/min/1.73sq m Abnormal >60 [facility] Comment on above: Result Comment: Calc ulation may not be valid for patients over 70 years Performed By: #### 0 0121, 67546 ####[facility] [place] [address], [place] GFR/1.73 sq M.predicted among blacks MDRD (S/P/Bld) [Vol rate/Area] mL/min/{1.73_m2} Normal >60 [facility] Comment on above: Result Comment: Calc ulation may not be valid for patients over 70 years Performed By: #### 0 0121, 35268 ####[facility] [place] [address], [place] Glucose [Mass/Vol] 106 mg/dL High 70-100 [facility] Comment on above: Performed By: #### 0 0121, 28037 ####[facility] [place] [address], [place] Potassium [Moles/Vol] 4.9 mmol/L Normal 3.5-5.1 [facility] Comment on above: Performed By: #### 0 0121, 79603 ####[facility] [place] [address], [place] Protein [Mass/Vol] 6.6 g/dL Normal 6.0-8.3 [facility] Comment on above: Performed By: #### 0 0121, 61903 ####[facility] [place] [address], [place] Sodium [Moles/Vol] 140 mmol/L Normal 136-145 [facility] Comment on above: Performed By: #### 0 0121, 83712 ####[facility] [place] [address], [place] Urea nitrogen [Mass/Vol] 31 mg/dL High 7-25 [facility] Comment on above: Performed By: #### 0 0121, 66207 ####[facility] CSPINE WO CONon CT CSPINE WO CON Normal [facility] CT LOWER EXTREMITY WO CONTRA ST LEFTon 11-21-2021 CT LOWER EXTREMITY WO CONTRAST LEFT [facility] Department of Radiology [address] [place] [id number] ======== Patient Name: MYRANDA YANES : 1940 Sex: F Age: Race: White Pt. Location: [facility] Patient Status: E Ordered Date: 11/21/2021 3:25:00 PM Completed Date: 11/21/2021 03:56 PM Requesting Provider: LEONCIO HUFFMAN Attending Provider: GINO FOX Report Copy To: Signs & Symptoms: Fracture History: See Comments Comments: Other, please include left ankle joint Exam: CT LOWER EXTREMITY WO CONTRAST LEFT ======== CT LOWER EXTREMITY WO CONTRAST LEFT 11/21/2021 3:56 PM CLINICAL INDICATIONS: Fracture TECHNOLOGIST COMMENTS: pt has injuring to left lower leg area QUESTION FOR THE RADIOLOGIST: Other, please include left ankle joint PROTOCOL: Axial CT images of the extremity were obtained without IV contrast. TECHNIQUE: Multidetector CT axial slices of the without IV contrast. Multiplanar reformats were performed and viewed on a separate workstation and reviewed to further define anatomy and possible pathology. All CT scans at this facility use dose modulation, iterative reconstruction, and/or weight based dosing when appropriate to reduce radiation dose to as low as reasonably achievable COMPARISON: None. FINDINGS: There is a comminuted fracture of the distal diaphysis and metaphysis of the tibia. Multiple fragments are present including a displaced and rotated butterfly fragment. There is mild to moderate displacement of fragments. On the CT scan there is a nondisplaced fracture lucency extending all the way to the tibial articular surface near the medial malleolus. This is not apparent on the plain radiographs. There is a comminuted and displaced fracture of the distal diaphysis of the tibia extending towards the metadiaphyseal junction. No intraarticulation and displacement is less severe. Bilateral soft tissue swelling. IMPRESSION: * Comminuted distal metadiaphyseal fracture of the tibia which has multiple moderately displaced fragments including a rotated butterfly fragment. The CT also demonstrates nondisplaced intra-articular extension which is not present on plain radiographs * comminuted and displaced fracture of the distal diaphysis of the tibia extending towards the metadiaphyseal junction. No intraarticulation and displacement is less severe. * Bilateral soft tissue swelling. Electronically signed: Liane Wright. Transcribed by: [email or web address], User Resident: Electronically Signed by: LIANE WRIGHT @ 11/21/2021 04:08 PM Normal [facility] Comment on above: Order Comment: Other , please include left ankle joint Covid-19 PCR (CVDTBH)on 10-31 SARS-CoV-2 (COVID-19) RNA JAMMIE+probe Ql (Unsp spec) Not detected Normal NOT DETECTED [facility] Comment on above: Result Comment: When diagnostic testing is negative, the possibility of a false negative should be considered inthe context of a patient's recent exposures and the presence of clinical signs and symptomsconsistent with SARS-CoV-2.This test is not yet approved or cleared by the [place] FDA. When there are no FDA-approved or cleared tests available, and other criteria are met, FDA can make tests available under an emergency access mechanism called an Emergency Use Authorization (EUA). The EUA for this test is supported by the [place] of Health and Human Service's declaration that circumstances exist to justify the emergency use of in vitro diagnostics for the detection and/or diagnosis of the virus that causes COVID-19. This EUA will remain in effect for the duration of the COVID-19 declaration justifying emergency of IVDs, unless it is terminated or revoked by the FDA (after which the test may no longer be used). Performed By: #### C VDTB ####[facility] [address]ixdt[address] [place] [address]Dr. Lynettesujata Taylor ER URINE PROFILEon 2 Bilirubin Ql (U) Negative Normal NEGATIVE [facility] Comment on above: Performed By: #### U MICRO, ERUR ####[facility] [address] [place], [place] [address]Dr. Lynettesujata Taylor Clarity (U) CLEAR Normal CLEAR [facility] Comment on above: Performed By: #### U MICRO, ERUR ####[facility] [address]xq[address] [place], [place] [address]Dr. Lynettesujata Taylor Color (U) LT. YELLOW Normal YELLOW [facility] Comment on above: Performed By: #### U MICRO, ERUR ####[facility] [address] [place], [place] [address]Dr. Arnoldo Taylor ERUAHD A micrscopic examination will be performed if indicated. Normal [facility] Comment on above: Performed By: #### U MICRO, ERUR ####[facility] [address] [place], [place] [address]Dr. Lynettelan Taylor Glucose Ql (U) Negative Normal NEGATIVE [facility] Comment on above: Performed By: #### U MICRO, ERUR ####[facility] [address]rwx[address] [place], [place] [address]Dr. Yilan Taylor Hemoglobin Ql (U) SMALL Abnormal NEGATIVE [facility] Comment on above: Performed By: #### U MICRO, ERUR ####[facility] [address]dr[address]qqjp[address] [place], [place] [address]Dr. Lynettelan Taylor Ketones Ql (U) Negative Normal NEGATIVE [facility] Comment on above: Performed By: #### U MICRO, ERUR ####[facility] [address]hll[address] [place], [place] [address]Dr. Yilan Taylor LEUKOCYTES Negative Normal NEGATIVE [facility] Comment on above: Performed By: #### U MICRO, ERUR ####[facility] [address] [place] [address]Dr. Arnoldo Brandon Nitrite Ql (U) Negative Normal NEGATIVE [facility] Comment on above: Performed By: #### U MICRO, ERUR ####[facility] Y[address]cjds[address]pz46[address] [place] [address]Dr. Arnoldo Taylor pH (U) 6.0 [pH] Normal 5-9 [facility] Comment on above: Performed By: #### U MICRO, ERUR ####[facility] [address]wwqss[address] [place] [address]Dr. Arnoldo Taylor SPEC GRAVITY 1.010 Normal 1.005-<=1.025 [facility] Comment on above: Performed By: #### U MICRO, ERUR ####[facility] [address]gcqlh[address] [place] [address]Dr. Arnoldo Taylor UA PROTEIN Negative Normal NEGATIVE/ TRACE [facility] Comment on above: Performed By: #### U MICRO, ERUR ####[facility] [place] [id number] [place] [address]Dr. Arnoldo Taylor UR MICRO IND INDICATED Normal [facility] Comment on above: Performed By: #### U MICRO, ERUR ####[facility] [address]vshhoebmk[address] [place] [address]Dr. Arnoldo Taylor Urobilinogen Qn (U) 0.2 {Adrienne'U}/dL Normal 0.2 - 1. 0 [facility] Comment on above: Performed By: #### U MICRO, ERUR ####[facility] Oxqohlcucw[address] [place] [address]Dr. Arnoldo Taylor POC SARS COV2 IDon 2 SARS-CoV-2 (COVID-19) RNA JAMMIE+probe Ql (Unsp spec) Negative Normal NEGATIVE [facility] Comment on above: Result Comment: ID N OW COVID-19 assay performed on the ID NOW Instrument is a rapid molecular in vitro diagnostic test utilizing an isothermal nucleic acid amplification technology intended for the qualitative detection of nucleic acid from the SARS-CoV-2 virus in direct anterior nasal (nasal), nasopharyngeal or throat swabs from individuals who are suspected of COVID-19 by their healthcare provider within the first seven days of the onset of symptoms. Testing is limited to laboratories certified under the Clinical Laboratory Improvement Amendments of 1988 (CLIA), 42 U.S.C. ???263a,that meet the requirements to perform high, moderate, or waived complexity tests. The ID NOW COVID-19 assay is also authorized for use at the Point of Care (POC), i.e., in patient care settings operating under a CLIA Certificate of Waiver, Certificate of Compliance, or Certificate of Accreditation. Performed By: #### 3 1595 #### [address] PORTABLE TIBIA FIBULA LEFTon 11-21-2021 PORTABLE TIBIA FIBULA LEFT [facility] Department of Radiology [address] [place] [id number] ======== Patient Name: MYRANDA YANES : 1940 Sex: F Age: Race: White Pt. Location: [facility] Patient Status: E Ordered Date: 11/21/2021 3:10:00 PM Completed Date: 11/21/2021 03:20 PM Requesting Provider: VIDAL BELLO Attending Provider: GINO FOX Report Copy To: Signs & Symptoms: Pain ( specify Location) History: Comments: Evaluate for FX, stress view Exam: PORTABLE TIBIA FIBULA LEFT ======== PORTABLE TIBIA FIBULA LEFT 11/21/2021 3:25 PM CLINICAL INDICATIONS: Pain ( specify Location) TECHNOLOGIST COMMENTS: Post splint of the left lower leg QUESTION FOR THE RADIOLOGIST: Evaluate for FX, stress view PROTOCOL: AP(PA) and Lateral views were obtained. COMPARISON: None Comminuted fracture of the distal metadiaphyseal junction of the left tibia with multiple fragments posterior angulation and mild anterior displacement of the distal fragment there is an associated metadiaphyseal fracture of the left fibula is also comminuted with multiple small fragments with mild posterior angulation. No definite extension to an articular surface. Some surrounding soft tissue swelling. IMPRESSION: Comminuted and mildly to moderately displaced fractures of the distal metadiaphyseal junctions of the left tibia and fibula. Electronically signed: Liane Wright. Transcribed by: [email or web address], User Resident: Electronically Signed by: LIANE WRIGHT @ 11/21/2021 03:53 PM Normal [facility] Comment on above: Order Comment: Crite brittaney for reflexing a culture was not met. Please call the lab at [phone] within 24 hours of collection time if culture is needed PROF CHEM 8 (BAS METB)on Anion gap [Moles/Vol] 11.8 mmol/L Normal [facility] Comment on above: Performed By: #### B MP ####[facility] I[address] [place] [address]Dr. Arnoldo Taylor Calcium [Mass/Vol] 8.8 mg/dL Normal 8.5-10.1 [facility] Comment on above: Performed By: #### B MP ####[facility] [address]ys[address] [place] [address]Dr. Yilan Taylor Chloride [Moles/Vol] 105 mmol/L Normal 98-107 [facility] Comment on above: Performed By: #### B MP ####[facility] Ecftoevgsb[address] [place] [address]Dr. Yilan Taylor CO2 [Moles/Vol] 27.3 mmol/L Normal 21.0-32.0 [facility] Comment on above: Performed By: #### B MP ####[facility] [address] [place] [address]Dr. Arnoldo Taylor Creatinine [Mass/Vol] 1.07 mg/dL Critically high 0.55-1.02 [facility] Comment on above: Performed By: #### B MP ####[facility] Flbvnrbtiy[address] [place] [address]Dr. Arnoldo Taylor EGFR-AF BURKINAN =60 Normal >=60 [facility] Comment on above: Performed By: #### B MP ####[facility] [address] [place], [place] [address]Dr. Arnoldo Taylor EGFR-NON AF BURKINAN 49 mL/min/1.73m2 Critically low >=60 [facility] Comment on above: Performed By: #### B MP ####[facility] [address] [place], [place] [address]Dr. Arnoldo Taylor Glucose [Mass/Vol] 112 mg/dL Critically high 74-106 [facility] Comment on above: Performed By: #### B MP ####[facility] [address] [place], [place] [address]Dr. Arnoldo Taylor Potassium [Moles/Vol] 4.1 mmol/L Normal 3.5-5.1 [facility] Comment on above: Performed By: #### B MP ####[facility] [address] [place], [place] [address]Dr. Arnoldo Taylor Sodium [Moles/Vol] 140 mmol/L Normal 136-145 [facility] Comment on above: Performed By: #### B MP ####[facility] [address] [place], [place] [address]Dr. Arnoldo Taylor Urea nitrogen [Mass/Vol] 29.0 mg/dL Critically high 7.0-18.0 [facility] Comment on above: Performed By: #### B MP ####[facility] Web[address] [place], [place] [address]Dr. Arnoldo Taylor Urea nitrogen/Creatinine [Mass ratio] 27.1 mg/mg Normal [facility] Comment on above: Performed By: #### B MP ####[facility] [address] [place], [place] [address]DrTye Taylor PROTHROMBIN TIMEon 2 INR Coag (PPP) [Relative time] 1.07 {INR} Normal 0.91-1.16 [facility] Comment on above: Result Comment: ACCC P RECOMMENDED INR FOR WARFARIN THERAPY ------ ------- CONDITION INR PROPHYLAXIS OF VENOUS THROMBOSIS 2-3 (HIGH-RISK SURGERY) TREATMENT OF VENOUS THROMBOSIS 2-3 TREATMENT OF PULMONARY EMBOLISM 2-3 PREVENTION OF SYSTEMIC EMBOLISM: 2-3 ACUTE MYOCARDIAL INFARCTION TISSUE HEART VALVES VALVULAR HEART DISEASE ATRIAL FIBRILLATION RECURRENT SYSTEMIC EMBOLISM MECHANICAL HEART VALVE 2.5-3.5 FROM: ORAL ANTICOAGULANTS. MECHANISM OF ACTION, CLINICAL EFFECTIVENESS, AND OPTIMAL THERAPEUTIC RANGE. CHEST 1995;108:231S-246S. Performed By: #### 5 0608 #### [address] PT Coag (PPP) [Time] 13.9 s Normal 12.3-14.8 [facility] Comment on above: Result Comment: ALL RESULTS MUST BE INTERPRETED WITH RESPECT TO BLOOD DRAWING ARTIFACT OR DILUTION ERROR OF ANTICOAGULANT AT THE TIME OF SAMPLING. Performed By: #### 5 0608 #### [address] TIBIA FIBULA LEFTon 11-22-19 22 TIBIA FIBULA LEFT [facility] Department of Radiology [address] [place] [id number] ======== Patient Name: MYRANDA YANES : 1940 Sex: F Age: Race: White Pt. Location: [facility] Patient Status: E Ordered Date: 11/21/2021 2:35:00 PM Completed Date: 11/21/2021 03:25 PM Requesting Provider: VIDAL BELLO Attending Provider: GINO FOX Report Copy To: Signs & Symptoms: Deformity History: Comments: R/O FX, post-reduction x-rays, 3 views. Will call when ready. Exam: TIBIA FIBULA LEFT ======== TIBIA FIBULA LEFT 11/21/2021 3:25 PM CLINICAL INDICATIONS: Deformity TECHNOLOGIST COMMENTS: Stress view by ortho resident of the left lower leg QUESTION FOR THE RADIOLOGIST: R/O FX, post-reduction x-rays, 3 views. Will call when ready. PROTOCOL: AP(PA) and Lateral views were obtained. COMPARISON: 2 views FINDINGS: Comminuted fracture of the distal metadiaphyseal junction of the left tibia with multiple fragments posterior angulation and mild anterior displacement of the distal fragment there is an associated metadiaphyseal fracture of the left fibula is also comminuted with multiple small fragments with mild posterior angulation. No definite extension to an articular surface. Some surrounding soft tissue swelling. IMPRESSION: Comminuted and mildly to moderately displaced fractures of the distal metadiaphyseal junctions of the left tibia and fibula. Electronically signed: Liane Wright. Transcribed by: [email or web address], User Resident: Electronically Signed by: LIANE WRIGHT @ 11/21/2021 03:50 PM Normal [facility] Comment on above: Order Comment: Crite brittaney for reflexing a culture was not met. Please call the lab at [phone] within 24 hours of collection time if culture is needed TROPONIN-Ion 07-23-2022 Troponin I.cardiac [Mass/Vol] 0.01 ng/mL Normal 0.00-0.04 [facility] Comment on above: Result Comment: REFE RENCE RANGES: 0.00 - 0.04 ng/ml NORMAL 0.05 - 0.50 ng/ml INDETERMINATE > 0.50 ng/ml CONSISTENT WITH AN M.I. Performed By: #### 0 0121, [id number] ####[facility] TYPE AND SCREENon 11-21-2021 ABO INTERPRETATION A Normal [facility] Comment on above: Performed By: #### 5 0608 #### [facility] [address] RH INTERPRETATION Positive Normal [facility] Comment on above: Performed By: #### 5 0608 #### [facility] [address] URINALYSIS REFLEXon 11-22-19 22 Appearance (U) CLEAR Normal CLEAR [facility] Comment on above: Order Comment: Crite brittaney for reflexing a culture was not met. Please call the lab at [phone] within 24 hours of collection time if culture is needed Performed By: #### 3 0965 #### [facility] [address] Bilirubin Ql (U) Negative Normal NEGATIVE The [facility] Comment on above: Order Comment: Crite brittaney for reflexing a culture was not met. Please call the lab at [phone] within 24 hours of collection time if culture is needed Performed By: #### 3 0965 #### [facility] [address] Color (U) YELLOW Normal YELLOW [facility] Comment on above: Order Comment: Crite brittaney for reflexing a culture was not met. Please call the lab at [phone] within 24 hours of collection time if culture is needed Performed By: #### 3 0965 #### [facility] [address] [place] [address], [place] EPIS NONE SEEN Normal FEW,OCC,NONE SEEN [facility] Comment on above: Order Comment: Crite brittaney for reflexing a culture was not met. Please call the lab at [phone] within 24 hours of collection time if culture is needed Performed By: #### 3 0965 #### [facility] [address] [place] [address], [place] Glucose Ql (U) Negative Normal NEGATIVE [facility] Comment on above: Order Comment: Crite brittaney for reflexing a culture was not met. Please call the lab at [phone] within 24 hours of collection time if culture is needed Performed By: #### 3 0965 #### [facility] [address] [place] [address], [place] Hemoglobin Ql (U) SMALL Abnormal NEGATIVE [facility] Comment on above: Order Comment: Crite brittaney for reflexing a culture was not met. Please call the lab at [phone] within 24 hours of collection time if culture is needed Performed By: #### 3 0965 #### [facility] [address] [place] [address], [place] KETONE Negative Normal NEGATIVE [facility] Comment on above: Order Comment: Crite brittaney for reflexing a culture was not met. Please call the lab at [phone] within 24 hours of collection time if culture is needed Performed By: #### 3 0965 #### [facility] [address] [place] [address], [place] LEUK BEV Negative Normal NEGATIVE [facility] Comment on above: Order Comment: Crite brittaney for reflexing a culture was not met. Please call the lab at [phone] within 24 hours of collection time if culture is needed Performed By: #### 3 0965 #### [facility] [address] [place] [address], [place] Nitrite Ql (U) Negative Normal NEGATIVE [facility] Comment on above: Order Comment: Crite brittaney for reflexing a culture was not met. Please call the lab at [phone] within 24 hours of collection time if culture is needed Performed By: #### 3 0965 #### [facility] [address] pH (U) 6.0 [pH] Normal 5.0-8.0 [facility] Comment on above: Order Comment: Crite brittaney for reflexing a culture was not met. Please call the lab at [phone] within 24 hours of collection time if culture is needed Performed By: #### 3 0965 #### [facility] [address] Protein Ql (U) Negative Normal NEGATIVE [facility] Comment on above: Order Comment: Crite brittaney for reflexing a culture was not met. Please call the lab at [phone] within 24 hours of collection time if culture is needed Performed By: #### 3 0965 #### [facility] [address] RBC 3-5 Abnormal NONE SEEN [facility] Comment on above: Order Comment: Crite brittaney for reflexing a culture was not met. Please call the lab at [phone] within 24 hours of collection time if culture is needed Performed By: #### 3 0965 #### [facility] [address] SPEC GRAV 1.011 Low 1.015-1.020 [facility] Comment on above: Order Comment: Crite brittaney for reflexing a culture was not met. Please call the lab at [phone] within 24 hours of collection time if culture is needed Performed By: #### 3 0965 #### [facility] [address] [place] [address], [facility] WBC UA 0-2 Abnormal NONE SEEN [facility] Comment on above: Order Comment: Crite brittaney for reflexing a culture was not met. Please call the lab at [phone] within 24 hours of collection time if culture is needed Performed By: #### 3 0965 #### [facility] [address] [place] [address], [facility] URINE MICROSCOPIC ONLYon BACTERIA NONE SEEN Normal NONE SEEN [facility] Comment on above: Performed By: #### U MICRO, ERUR ####[facility] [address] [place] [address]Dr. Arnoldo Taylor Bacteria identified Cx Nom (U) NOT INDICATED Normal [facility] Comment on above: Performed By: #### U MICRO, ERUR ####[facility] [address] [place] [address]Dr. Arnoldo Taylor CAST NONE SEEN Normal NONE SEEN [facility] Comment on above: Performed By: #### U MICRO, ERUR ####[facility] [address] [place] [address]Dr. Arnoldo Taylor Crystals LM Nom (Urine sed) NONE SEEN Normal NONE SEEN [facility] Comment on above: Performed By: #### U MICRO, ERUR ####[facility] [address] [place] [address]Dr. Arnoldo Taylor Epithelial cells LM Ql (Urine sed) RARE Normal NONE SEEN /RARE [facility] Comment on above: Performed By: #### U MICRO, ERUR ####[facility] [address] [place] [address]Dr. Lynettelan Brandon MUCOUS NONE SEEN Normal NONE SEEN [facility] Comment on above: Performed By: #### U MICRO, ERUR ####[facility] [address]pj[address] [place] [address]Dr. Arnoldo Taylor RBC 0-2 Normal 0-2 [facility] Comment on above: Performed By: #### U MICRO, ERUR ####[facility] [address]fpio[address] [place] [address]Dr. Arnoldo Taylor WBC NONE SEEN Normal NONE SEEN [facility] Comment on above: Performed By: #### U MICRO, ERUR ####[facility] [address]hb[address] [place] [address]Dr. Arnoldo Taylor XR CHEST 1 Von 11-21-2021 XR CHEST 1 V Normal [facility] XR FEMUR LTon 11-21-2021 XR FEMUR LT Normal [facility] XR TIB_FIB LT 2Von 2 XR TIB_FIB LT 2V Normal [facility] HIP LEFT 1 OR 2 VWS WITH PEL VISon 11-19-2021 HIP LEFT 1 OR 2 VWS WITH PELVIS [facility] Department of Radiology [address] [place] [address] ======== Patient Name: MYRANDA YANES : 1940 Sex: F Age: Race: White Pt. Location: Patient Status: D Ordered Date: 11/19/2021 9:35:00 AM Completed Date: 11/19/2021 09:39 AM Requesting Provider: MASON RUIZ Attending Provider: MASON RUIZ Report Copy To: Signs & Symptoms: Z48.89 Encounter for other specified surgical aftercare I10 History: Rachel Comments: Evaluate Exam: HIP LEFT 1 OR 2 VWS WITH PELVIS ======== HIP LEFT 1 OR 2 VWS WITH PELVIS 11/19/2021 9:39 AM CLINICAL INDICATIONS: Z48.89 Encounter for other specified surgical aftercare I10 TECHNOLOGIST COMMENTS: ortho follow up. left hip surgery 11/06/21 QUESTION FOR THE RADIOLOGIST: Evaluate PROTOCOL: AP(PA) and Lateral views were obtained. COMPARISON: November 06, 2021 FINDINGS: Reduction and internal fixation of bases cervical fracture of the left hip with a dynamic screw and intramedullary nikhil. Alignment is anatomic fracture healing is incomplete. Once again there is a separate fragment for the lesser trochanter which is medially displaced. No other fractures are noted. Degenerative changes in the lower lumbar spine IMPRESSION: 1. Reduction and internal fixation of bases cervical fracture of the left hip with a dynamic screw and intramedullary nikhil. Alignment is anatomic fracture healing is incomplete. 2. Once again there is a separate fragment for the lesser trochanter which is medially displaced. Electronically signed: Liane Wright. Transcribed by: [email or web address], User Resident: Electronically Signed by: LIANE WRIGHT @ 11/22/2021 02:59 PM Normal [facility] Comment on above: Order Comment: Crite brittaney for reflexing a culture was not met. Please call the lab at [phone] within 24 hours of collection time if culture is needed POC SARS COV2 ANTIGEN NEGATI VEon 11-12-2021 POC SARS COV2 ANTIGEN NEG Negative Normal NEGATIVE [facility] Comment on above: Result Comment: Nega tive results should be treated as presumptive and confirmation with a molecular assay, if necessary, for patient management, may be performed. Negative results do not rule out SARS-CoV-2 infection and not should be used as the sole basis for treatment or patient management decisions, including infection control decisions. Negative results should be considered in the context of a patient's recent exposures, history, and the presence of clinical signs and symptoms consistent with COVID-19. The Clarity COVID-19 Antigen Rapid Test Cassette is a rapid chromatographic immunoassay intended for the qualitative detection of the nucleocapsid protein antigen from SARS-CoV-2 in direct nasopharyngeal swab (CAPACITY ANALYST) specimens from individuals who are suspected of COVID-19 by their healthcare provider within the first six days of symptom onset. Testing is limited to laboratories certified under the Clinical Laboratory Improvement Amendments of 1988 (CLIA), 42 U.S.C. ???263a, that meet the requirements to perform moderate complexity, high complexity, or waived tests. This test is authorized for use at the Point of Care (POC), i.e., in patient care settings operating under a CLIA Certificate of Waiver, Certificate of Compliance, or Certificate of Accreditation. Performed By: #### 3 2044 #### [place] [address] [address] POC GLUCOSE LABon 11-11-2021 Glucose [Mass/Vol] 130 mg/dL High 70-100 [facility] Comment on above: Performed By: #### 3 1595 #### [facility] [address] [place] [address], [facility] Glucose [Mass/Vol] 125 mg/dL High 70-100 [facility] Comment on above: Performed By: #### 8 5499 #### [facility] [address] [place] [address], [facility] CBC W/DIFFon 11-10-2021 ABS IMM GRANS 0.0 10*3/uL Normal 0.0-0.2 [facility] Comment on above: Order Comment: No: D o not add to previous draw Performed By: #### 5 0608 #### [facility] [address] [facility] [address], [facility] ABS NEUTROPHILS 4.0 10*3/uL Normal 1.6-7.6 The [facility] Comment on above: Order Comment: No: D o not add to previous draw Performed By: #### 5 0608 #### [facility] [address] [facility] [address], [facility] Basophils (Bld) [#/Vol] 0.0 10*3/uL Normal 0.0-0.2 [facility] Comment on above: Order Comment: No: D o not add to previous draw Performed By: #### 5 0608 #### [facility] [address] [facility] [address], [facility] Basophils/100 WBC (Bld) 0.1 % Normal 0.0-1.0 [facility] Comment on above: Order Comment: No: D o not add to previous draw Performed By: #### 5 0608 #### [facility] [address] [facility] [address], [facility] Eosinophils (Bld) [#/Vol] 0.2 10*3/uL Normal 0.0-0.5 [facility] Comment on above: Order Comment: No: D o not add to previous draw Performed By: #### 5 0608 #### [facility] [address] [place] [address], [facility] Eosinophils/100 WBC (Bld) 2.7 % Normal 0.0-6.0 [facility] Comment on above: Order Comment: No: D o not add to previous draw Performed By: #### 5 0608 #### [facility] [address] [place] [address], [facility] Erythrocyte distribution width (RBC) [Ratio] 12.6 % Normal 11.5-15.0 [facility] Comment on above: Order Comment: No: D o not add to previous draw Performed By: #### 5 0608 #### [facility] [address] [place] [place] [address], [facility] Hematocrit (Bld) [Volume fraction] 23.7 % Low 36.0-45.0 [facility] Comment on above: Order Comment: No: D o not add to previous draw Performed By: #### 5 0608 #### [facility] [address] [place] [place] [address], [facility] Hemoglobin (Bld) [Mass/Vol] 8.1 g/dL Low 12.0-15.0 [facility] Comment on above: Order Comment: No: D o not add to previous draw Performed By: #### 5 0608 #### [facility] [address] [place] [address], [facility] IMMATURE GRANS 0.4 % Normal 0.0-1.0 [facility] Comment on above: Order Comment: No: D o not add to previous draw Performed By: #### 5 0608 #### [facility] [address] [place] [id number], [facility] Lymphocytes (Bld) [#/Vol] 2.4 10*3/uL Normal 1.2-4.0 [facility] Comment on above: Order Comment: No: D o not add to previous draw Performed By: #### 5 0608 #### [facility] [address] [facility] [address], [facility] Lymphocytes/100 WBC (Bld) 31.4 % Normal 20.0-45.0 [facility] Comment on above: Order Comment: No: D o not add to previous draw Performed By: #### 5 0608 #### [facility] [address] [place] [address], [facility] MCH (RBC) [Entitic mass] 31.4 pg Normal 27.0-33.0 [facility] Comment on above: Order Comment: No: D o not add to previous draw Performed By: #### 5 0608 #### [facility] [address] MCHC (RBC) [Mass/Vol] 34.2 g/dL Normal 32.0-35.0 [facility] Comment on above: Order Comment: No: D o not add to previous draw Performed By: #### 5 0608 #### [facility] [address] [facility] [address], [facility] MCV (RBC) [Entitic vol] 91.9 fL Normal 82.0-98.0 [facility] Comment on above: Order Comment: No: D o not add to previous draw Performed By: #### 5 0608 #### [facility] [address] [place] [address], [facility] Monocytes (Bld) [#/Vol] 1.1 10*3/uL High 0.1-1.0 [facility] Comment on above: Order Comment: No: D o not add to previous draw Performed By: #### 5 0608 #### [facility] [address] [place] [address], [facility] MONOS 13.5 % High 5.0-12.0 [facility] Comment on above: Order Comment: No: D o not add to previous draw Performed By: #### 5 0608 #### [facility] [address] [place] [address], [facility] Neutrophils/100 WBC (Bld) 51.9 % Normal 40.0-72.0 [facility] Comment on above: Order Comment: No: D o not add to previous draw Performed By: #### 5 0608 #### [facility] [address] [place] [address], [facility] Nucleated RBC/100 WBC (Bld) [Ratio] 0 % Normal 0-0 [facility] Comment on above: Order Comment: No: D o not add to previous draw Performed By: #### 5 0608 #### [facility] [address] [place] [address], [facility] PLAT CNT 131 10*3/uL Low 150-400 [facility] Comment on above: Order Comment: No: D o not add to previous draw Performed By: #### 5 0608 #### [facility] [address] [place] [address], [facility] RBC (Bld) [#/Vol] 2.58 10*6/uL Low 3.80-5.00 [facility] Comment on above: Order Comment: No: D o not add to previous draw Performed By: #### 5 0608 #### [facility] [address] [facility]. [place] [address], [place] WBC (Bld) [#/Vol] 7.78 10*3/uL Normal 4.00-10.60 [facility] Comment on above: Order Comment: No: D o not add to previous draw Performed By: #### 5 0608 #### [facility] [address] [place] [address], [facility] POC GLUCOSE LABon 11-10-2021 Glucose [Mass/Vol] 128 mg/dL High 70-100 [facility] Comment on above: Performed By: #### 3 4 #### [facility] [address] [place] [address], [place] Glucose [Mass/Vol] 107 mg/dL High 70-100 [facility] Comment on above: Performed By: #### 3 2043 #### [facility] [address] [place] [address], [place] Glucose [Mass/Vol] 185 mg/dL High 70-100 [facility] Comment on above: Performed By: #### 8 5499 #### [facility] [address] [place] [address], [place] Glucose [Mass/Vol] 111 mg/dL High 70-100 [facility] Comment on above: Performed By: #### 8 5499 #### [facility] [address] [place] [address], [place] POC GLUCOSE LABon 11-09-2021 Glucose [Mass/Vol] 100 mg/dL Normal 70-100 [facility] Comment on above: Performed By: #### 3 1595 #### [facility] [address] [place] [address], [place] Glucose [Mass/Vol] 148 mg/dL High 70-100 [facility] Comment on above: Performed By: #### 3 1595 #### [facility] [address] [place] [address], [place] Glucose [Mass/Vol] 112 mg/dL High 70-100 [facility] Comment on above: Performed By: #### 3 1595 #### [facility] [address] [place] [address], [place] BASIC METABOLIC PANELon 07- Calcium [Mass/Vol] 7.7 mg/dL Low 8.6-10.3 [facility] Comment on above: Order Comment: No: D o not add to previous draw Performed By: #### 5 0608 #### [facility] [address] [place] [address], [place] Chloride [Moles/Vol] 105 mmol/L Normal 98-107 [facility] Comment on above: Order Comment: No: D o not add to previous draw Performed By: #### 5 0608 #### [facility] [address] [place] [address], [place] CO2 [Moles/Vol] 24 mmol/L Normal 21-31 The [facility] Comment on above: Order Comment: No: D o not add to previous draw Performed By: #### 5 0608 #### [facility] [address] [place] [address], [place] Creatinine [Mass/Vol] 0.90 mg/dL Normal 0.60-1.20 [facility] Comment on above: Order Comment: No: D o not add to previous draw Performed By: #### 5 0608 #### [facility] [address] [place] [address], [place] GFR/1.73 sq M.predicted among blacks MDRD (S/P/Bld) [Vol rate/Area] mL/min/{1.73_m2} Normal >60 [facility] Comment on above: Order Comment: No: D o not add to previous draw Result Comment: Calc ulation may not be valid for patients over 70 years Performed By: #### 5 0608 #### [facility] [address] [place] [address], [place] GFR/1.73 sq M.predicted among non-blacks MDRD (S/P/Bld) [Vol rate/Area] mL/min/{1.73_m2} Normal >60 [facility] Comment on above: Order Comment: No: D o not add to previous draw Result Comment: Calc ulation may not be valid for patients over 70 years Performed By: #### 5 0608 #### [facility] [address] [place] [address], [facility] Glucose [Mass/Vol] 104 mg/dL High 70-100 [facility] Comment on above: Order Comment: No: D o not add to previous draw Performed By: #### 5 0608 #### [facility] [address] [place] [address], [facility] Potassium [Moles/Vol] 3.7 mmol/L Normal 3.5-5.1 [facility] Comment on above: Order Comment: No: D o not add to previous draw Performed By: #### 5 0608 #### [facility] [address] [place] [address], [facility] Sodium [Moles/Vol] 137 mmol/L Normal 136-145 [facility] Comment on above: Order Comment: No: D o not add to previous draw Performed By: #### 5 0608 #### [facility] [address] [place] [address], [facility] Urea nitrogen [Mass/Vol] 26 mg/dL High 7-25 [facility] Comment on above: Order Comment: No: D o not add to previous draw Performed By: #### 5 0608 #### [facility] [address] [facility] [place] [address], [facility] CBC W/DIFFon 11-08-2021 ABS IMM GRANS 0.0 10*3/uL Normal 0.0-0.2 [facility] Comment on above: Order Comment: No: D o not add to previous draw Performed By: #### 5 0103 #### [facility] [address] [place] [address], [facility] ABS NEUTROPHILS 5.0 10*3/uL Normal 1.6-7.6 The [facility] Comment on above: Order Comment: No: D o not add to previous draw Performed By: #### 5 0103 #### [facility] [address] [place] [address], [facility] Basophils (Bld) [#/Vol] 0.0 10*3/uL Normal 0.0-0.2 [facility] Comment on above: Order Comment: No: D o not add to previous draw Performed By: #### 5 0103 #### [facility] [address] [place] [address], [facility] Basophils/100 WBC (Bld) 0.1 % Normal 0.0-1.0 [facility] Comment on above: Order Comment: No: D o not add to previous draw Performed By: #### 5 0103 #### [facility] [address] [place] [address], [facility] Eosinophils (Bld) [#/Vol] 0.2 10*3/uL Normal 0.0-0.5 [facility] Comment on above: Order Comment: No: D o not add to previous draw Performed By: #### 5 0103 #### [facility] [address] [place] [address], [facility] Eosinophils/100 WBC (Bld) 1.7 % Normal 0.0-6.0 [facility] Comment on above: Order Comment: No: D o not add to previous draw Performed By: #### 5 0103 #### [facility] [address] [place] [address], [facility] Erythrocyte distribution width (RBC) [Ratio] 13.5 % Normal 11.5-15.0 [facility] Comment on above: Order Comment: No: D o not add to previous draw Performed By: #### 5 0103 #### [facility] [address] [place] [address], [facility] Hematocrit (Bld) [Volume fraction] 27.0 % Low 36.0-45.0 [facility] Comment on above: Order Comment: No: D o not add to previous draw Performed By: #### 5 0103 #### [facility] [address] [place] [address], [facility] Hemoglobin (Bld) [Mass/Vol] 8.8 g/dL Low 12.0-15.0 [facility] Comment on above: Order Comment: No: D o not add to previous draw Performed By: #### 5 0103 #### [facility] [address] [place] [address], [facility] IMM PLATELET FRAC 1.1 % Normal 0.8-6.3 [facility] Comment on above: Order Comment: No: D o not add to previous draw Performed By: #### 5 0103 #### [facility] [address] [facility] [place] [address], [facility] IMMATURE GRANS 0.3 % Normal 0.0-1.0 [facility] Comment on above: Order Comment: No: D o not add to previous draw Performed By: #### 5 0103 #### [facility] [address] [place] [place] [address], [facility] Lymphocytes (Bld) [#/Vol] 2.3 10*3/uL Normal 1.2-4.0 [facility] Comment on above: Order Comment: No: D o not add to previous draw Performed By: #### 5 0103 #### [facility] [address] [facility] [place] [address], [facility] Lymphocytes/100 WBC (Bld) 26.4 % Normal 20.0-45.0 [facility] Comment on above: Order Comment: No: D o not add to previous draw Performed By: #### 5 0103 #### [facility] [address] [place] [address], [facility] MCH (RBC) [Entitic mass] 31.3 pg Normal 27.0-33.0 [facility] Comment on above: Order Comment: No: D o not add to previous draw Performed By: #### 5 0103 #### [facility] [address] [facility] MCHC (RBC) [Mass/Vol] 32.6 g/dL Normal 32.0-35.0 [facility] Comment on above: Order Comment: No: D o not add to previous draw Performed By: #### 5 0103 #### [facility] [address] [place] [address], [facility] MCV (RBC) [Entitic vol] 96.1 fL Normal 82.0-98.0 [facility] Comment on above: Order Comment: No: D o not add to previous draw Performed By: #### 5 0103 #### [facility] [address] [facility] [place] [address], [facility] Monocytes (Bld) [#/Vol] 1.2 10*3/uL High 0.1-1.0 [facility] Comment on above: Order Comment: No: D o not add to previous draw Performed By: #### 5 0103 #### [facility] [address] [place] [place] [address], [facility] MONOS 13.9 % High 5.0-12.0 [facility] Comment on above: Order Comment: No: D o not add to previous draw Performed By: #### 5 0103 #### [facility] [address] [facility] [place] [address], [facility] Neutrophils/100 WBC (Bld) 57.6 % Normal 40.0-72.0 [facility] Comment on above: Order Comment: No: D o not add to previous draw Performed By: #### 5 0103 #### [facility] [address] [facility] [place] [address], [facility] Nucleated RBC/100 WBC (Bld) [Ratio] 0 % Normal 0-0 [facility] Comment on above: Order Comment: No: D o not add to previous draw Performed By: #### 5 0103 #### [facility] [address] [place] [address], [place] PLAT CNT 101 10*3/uL Low 150-400 [facility] Comment on above: Order Comment: No: D o not add to previous draw Performed By: #### 5 0103 #### [facility] [address] [place] [address], [place] RBC (Bld) [#/Vol] 2.81 10*6/uL Low 3.80-5.00 [facility] Comment on above: Order Comment: No: D o not add to previous draw Performed By: #### 5 3 #### [facility] [address] [place] [address], [place] WBC (Bld) [#/Vol] 8.71 10*3/uL Normal 4.00-10.60 [facility] Comment on above: Order Comment: No: D o not add to previous draw Performed By: #### 5 3 #### [facility] [address] [place] [address], [facility] POC GLUCOSE LABon 11-08-2021 Glucose [Mass/Vol] 92 mg/dL Normal 70-100 [facility] Comment on above: Performed By: #### 8 5499 #### [facility] [address] [place] [address], [place] Glucose [Mass/Vol] 102 mg/dL High 70-100 [facility] Comment on above: Performed By: #### 3 2044 #### [facility] [address] [place] [address], [place] Glucose [Mass/Vol] 108 mg/dL High 70-100 [facility] Comment on above: Performed By: #### 8 5499 #### [facility] [address] [place] [address], [place] Glucose [Mass/Vol] 125 mg/dL High 70-100 [facility] Comment on above: Performed By: #### 8 5499 #### [facility] [address] [place] [address], [facility] BASIC METABOLIC PANELon 07-0 -2021 Calcium [Mass/Vol] 7.6 mg/dL Low 8.6-10.3 [facility] Comment on above: Order Comment: Evalu ate Performed By: #### 4 1000, 85773, 09782 ####[facility] [address], [place] Chloride [Moles/Vol] 107 mmol/L Normal 98-107 [facility] Comment on above: Order Comment: Evalu ate Performed By: #### 4 1000, 53725, 35103 ####[facility] [place] [address], [place] CO2 [Moles/Vol] 27 mmol/L Normal 21-31 [facility] Comment on above: Order Comment: Evalu ate Performed By: #### 4 1000, 54502, 91686 ####[facility] [place] [address], [place] Creatinine [Mass/Vol] 0.83 mg/dL Normal 0.60-1.20 [facility] Comment on above: Order Comment: Evalu ate Performed By: #### 4 1000, 04613, 55028 ####[facility] [place] [address], [place] GFR/1.73 sq M.predicted among blacks MDRD (S/P/Bld) [Vol rate/Area] mL/min/{1.73_m2} Normal >60 [facility] Comment on above: Order Comment: Evalu ate Result Comment: Calc ulation may not be valid for patients over 70 years Performed By: #### 4 1000, 67877, 37179 ####[facility] [place] [address], [place] GFR/1.73 sq M.predicted among non-blacks MDRD (S/P/Bld) [Vol rate/Area] mL/min/{1.73_m2} Normal >60 [facility] Comment on above: Order Comment: Evalu ate Result Comment: Calc ulation may not be valid for patients over 70 years Performed By: #### 4 1000, 15769, 51328 ####[facility] [place] [address], [place] Glucose [Mass/Vol] 113 mg/dL High 70-100 [facility] Comment on above: Order Comment: Evalu ate Performed By: #### 4 1000, 25724, 01006 ####[facility] [place] [address], [place] Potassium [Moles/Vol] 3.8 mmol/L Normal 3.5-5.1 [facility] Comment on above: Order Comment: Evalu ate Performed By: #### 4 1000, 33310, 68126 ####[facility] [place] [address], [place] Sodium [Moles/Vol] 140 mmol/L Normal 136-145 [facility] Comment on above: Order Comment: Evalu ate Performed By: #### 4 1000, 24062, 80194 ####[facility] [place] [address], [place] Urea nitrogen [Mass/Vol] 24 mg/dL Normal 7-25 [facility] Comment on above: Order Comment: Evalu ate Performed By: #### 4 1000, 43744, 16646 ####[facility] [place] [address], [place] CBC COMPLETE BLOOD COUNTon 0 - Erythrocyte distribution width (RBC) [Ratio] 13.0 % Normal 11.5-15.0 [facility] Comment on above: Order Comment: No: D o not add to previous draw Performed By: #### 5 0608 #### [facility] [address] [place] [address], [place] Hematocrit (Bld) [Volume fraction] 24.0 % Low 36.0-45.0 [facility] Comment on above: Order Comment: No: D o not add to previous draw Performed By: #### 5 0608 #### [facility] [address] [place] [address], [facility] Hemoglobin (Bld) [Mass/Vol] 7.9 g/dL Low 12.0-15.0 [facility] Comment on above: Order Comment: No: D o not add to previous draw Performed By: #### 5 0608 #### [facility] [address] [place] [address], [facility] MCH (RBC) [Entitic mass] 30.5 pg Normal 27.0-33.0 [facility] Comment on above: Order Comment: No: D o not add to previous draw Performed By: #### 5 0608 #### [facility] [address] [place] [address], [facility] MCHC (RBC) [Mass/Vol] 32.9 g/dL Normal 32.0-35.0 [facility] Comment on above: Order Comment: No: D o not add to previous draw Performed By: #### 5 0608 #### [facility] [address] [place] [address], [facility] MCV (RBC) [Entitic vol] 92.7 fL Normal 82.0-98.0 [facility] Comment on above: Order Comment: No: D o not add to previous draw Performed By: #### 5 0608 #### [facility] [address] [place] [address], [facility] Nucleated RBC/100 WBC (Bld) [Ratio] 0 % Normal 0-0 [facility] Comment on above: Order Comment: No: D o not add to previous draw Performed By: #### 5 0608 #### [facility] [address] [place] [address], [facility] PLAT CNT 114 10*3/uL Low 150-400 [facility] Comment on above: Order Comment: No: D o not add to previous draw Performed By: #### 5 0608 #### [facility] [address] [place] [address], [facility] RBC (Bld) [#/Vol] 2.59 10*6/uL Low 3.80-5.00 [facility] Comment on above: Order Comment: No: D o not add to previous draw Performed By: #### 5 0608 #### [facility] [address] [place] [address], [facility] WBC (Bld) [#/Vol] 10.96 10*3/uL High 4.00-10.60 [facility] Comment on above: Order Comment: No: D o not add to previous draw Performed By: #### 5 0608 #### [facility] [address] [place] [address], [facility] HEMOGLOBINon 11-07-2021 Hemoglobin (Bld) [Mass/Vol] 8.6 g/dL Low 12.0-15.0 [facility] Comment on above: Order Comment: No: D o not add to previous draw Performed By: #### 5 0608 #### [facility] [address] [place] [address], [facility] Hemoglobin (Bld) [Mass/Vol] 7.6 g/dL Low 12.0-15.0 [facility] Comment on above: Order Comment: No: D o not add to previous draw Performed By: #### 5 0608 #### [facility] [address] [place] [address], [facility] MAGNESIUM BLOODon 11-07-2021 Magnesium [Mass/Vol] 1.6 mg/dL Low 1.9-2.7 [facility] Comment on above: Order Comment: Evalu ate Performed By: #### 4 1000, 28709, 71307 ####[facility] Operative Reporton Operative Report MR#: [id number] I [facility] Pt. Name: Myranda Yanes Room #: [id number] Discharge Date: Birthdate: 1940 OPERATIVE REPORT DATE OF SURGERY: 11/06/2021 SURGEON: Jaskaran Beal M.D. ASSISTANTS: 1. Ankit Tobias M.D. 2. Jus Yancey M.D. 3. Manjinder Davis M.D. PREOPERATIVE DIAGNOSIS: Left intertrochanteric fracture. POSTOPERATIVE DIAGNOSIS: Left intertrochanteric fracture. PROCEDURE: Left cephalomedullary nail. ANESTHESIA: General. BLOOD LOSS: 100 mL. FLUIDS: Per anesthesia records. SPECIMENS: None. COMPLICATIONS: None. IMPLANTS: [place] Gamma3 short cephalomedullary nail 125 degree, 11 x 180, and 100 mm lag screw and 5 mm lag screw. INDICATIONS: The patient is a 81-year-old female who presented to the emergency room after a fall. The patient was found to have a left intertrochanteric fracture. The patient had been admitted to the hospital for after discussions of conservative and surgical treatment options. After risks and benefits were discussed with the patient and her family, they have elected to proceed with operative stabilization of her left hip. PROCEDURE IN DETAIL: The patient was met in the preoperative holding area with Dr. Beal. The physical exam was performed that was consistent with previous exam findings. The operative limb was identified and was signed with Dr. Beal. The patient was taken to the operating suite where she was moved to the [place] table. The patient was put to sleep with general anesthesia. The patient was properly placed and secured onto the [place] table. The patient was prepped and draped in appropriate sterile fashion. Preoperative antibiotics were given per protocol. Reduction was performed by pulling the patient's leg out to length using [place] table, appropriate reduction was achieved and agreed on an AP and lateral views upon all team members. The greater trochanter was identified and incision was made proximally. A curved awl was placed on the medial aspect of the greater trochanter in an appropriate standard starting point fashion. The awl was advanced and confirmed in AP and lateral views to be in an appropriate place. Guide wire was passed using a T-handle through the awl into the femur. The awl was removed and 15.5 opening reamer was used at the proximal femur. Next, the patient's femur was reamed up to a 13. A cephalomedullary nail as previously described in implants was inserted into the patient's proximal femur, and was appropriately placed with lag screw trajectory going into the middle of the femoral head. A K-wire was used through a guide to drill to the femoral head of the lag screw. This was then measured. A K-wire was over threaded with a lag screw. After confirming AP and lateral, a distal interlocking screw was placed. A locking screw was placed at the proximal aspect of the nail. Nails handle was then removed. The patient's wounds were irrigated with Betadine and saline. The patient's wounds were closed with 2-0 Vicryl and 3-0 Novafil. The patient's incisions were dressed with Xeroform gauze and Tegaderm. The patient was awakened in the operating room from general anesthesia without any complications. The patient was taken to the PACU recovery room without any issue. The patient tolerated the procedure well. PLAN: The patient will be weightbearing as tolerated and will return to her room as she was admitted to the hospital service. She will workup with physical therapy. The patient will follow up in clinic in 7 to 10 days postoperatively. The patient will be given 24 hours of perioperative antibiotics. The patient will be placed on DVT prophylaxis per protocol. Dr. Beal was present for all critical portions of the case and made all critical decisions regarding the patient's care. Electronically Signed by: Jaskaran Beal M.D. 11/09/2021 04:07 P Jaskaran Beal M.D. I was present for the mora and critical portions and I was otherwise immediately available to assist. Date Dict: 11/06/2021/03:09 Rakan/Ankit Tobias MD Date Trans: 11/07/2021 03:00 A/lalo [id number] cc: Whitney Goodman M.D. [address] [place] [phone] Normal [facility] PHOSPHORUS BLOODon 2 Phosphate [Mass/Vol] 2.6 mg/dL Normal 2.5-5.0 [facility] Comment on above: Order Comment: Evalu ate Performed By: #### 4 1000, 67820, 99455 ####[facility] [place] [address], [facility] POC GLUCOSE LABon 11-07-2021 Glucose [Mass/Vol] 120 mg/dL High 70-100 [facility] Comment on above: Performed By: #### 3 2044 #### [facility] [address] [facility] [place] [address], [place] Glucose [Mass/Vol] 113 mg/dL High 70-100 [facility] Comment on above: Performed By: #### 8 5499 #### [facility] [address] [facility] [address], [place] Glucose [Mass/Vol] 134 mg/dL High 70-100 [facility] Comment on above: Performed By: #### 3 4 #### [facility] [address] [facility] [place] [address], [place] Glucose [Mass/Vol] 107 mg/dL High 70-100 [facility] Comment on above: Performed By: #### 3 1595 #### [facility] [address] [place] [address], [place] RBC'S 1 UNITon 11-07-2021 CROSSMATCH INTERP 1 COMP Normal [facility] Comment on above: Order Comment: Evalu ate Performed By: #### 8 6001 ####[facility] [facility] [place] [address], [place] PRODUCT CODE 1 E0336 Normal [facility] Comment on above: Order Comment: Evalu ate Performed By: #### 8 6001 ####[facility] [facility].[address] PRODUCT STATUS 1 PT Normal The [facility] Comment on above: Order Comment: Evalu ate Result Comment: Resu lt changed by IF on 11/07/2021 12:29. The previous value was XM. Result changed by IF on 11/08/2021 00:30. The previous value was IS. Performed By: #### 8 6001 ####[facility] [facility].[address] UNIT ABO 1 A Normal [facility] Comment on above: Order Comment: Evalu ate Performed By: #### 8 6001 ####[facility] [facility].[address] UNIT ID 1 [id number] Normal The [facility] Comment on above: Order Comment: Evalu ate Performed By: #### 8 6001 ####[facility] [facility].[address] UNIT RH 1 Positive Normal [facility] Comment on above: Order Comment: Evalu ate Performed By: #### 8 6001 ####[place] [address] lactate w/reflex #2on 2021 Lactate [Moles/Vol] 2.1 mmol/L Normal .5-2.2 [facility] Comment on above: Order Comment: Refle xed from accession #[id number] Time:2249RESULT >=2.0; ADDITIONAL LACTATE ORDERED IN 4 HRS PER SEPSIS PROTOCOL Performed By: #### 3 1415 ####[address] lactate w/reflex #3on 2021 Lactate [Moles/Vol] 1.0 mmol/L Normal .5-2.2 [facility] Comment on above: Order Comment: Hemog lobin < 9 gm/dl with known cardiac or cerebrovascular disease Performed By: #### 8 6002 #### [facility] [address] *BLOOD CULTUREon 11-06-2021 *BLOOD CULTURE Clinical Report: (D) Specimen: BLOOD CULTURE Collected: 11/06/2021 18:49 Status: Final Last Updated: 11/12/2021 07:40 (1) Rtwrist 1848 CULT RES (Final) No Growth Day 5 Normal [facility] Comment on above: Order Comment: Rtwri st 1848 Performed By: #### 3 1595 #### [facility] [address] *BLOOD CULTURE Clinical Report: (D) Specimen: BLOOD CULTURE Collected: 11/06/2021 18:49 Status: Final Last Updated: 11/12/2021 07:40 (1) Lwrist 1845 CULT RES (Final) No Growth Day 5 Normal [facility] Comment on above: Order Comment: Lwris t 1845 Performed By: #### 3 1595 #### [facility] [address] *MRSA/MSSA DNA NASALon 11-06 *MRSA/MSSA DNA NASAL Clinical Report: (D) Specimen: NASAL SWAB Collected: 11/06/2021 11:50 Status: Final Last Updated: 11/07/2021 11:10 MSSA DNA (Final) Negative MRSA DNA (Final) Negative Normal [facility] Comment on above: Performed By: #### 3 1595 #### [facility] [address] *URINE CULTUREon 11-06-2021 *URINE CULTURE Clinical Report: (D) Specimen/Source: URINE/CLEAN VOID URINE Collected: 11/06/2021 05:02 Status: Final Last Updated: 11/08/2021 07:31 ISO (Final) Escherichia coli >100,000 Cfu/Ml ISOLATE: Escherichia coli -- GIBSON (mcg/ml) AMP./SULBAC (AMS) 4/2 Susceptible AMPICILLIN (AM) <=4 Susceptible AZTREONAM (AZM) <=2 Susceptible CEFAZOLIN (CZ) <=1 Susceptible CEFTRIAXONE (OPEN SOURCE DEVELOPER) <=1 Susceptible CIPROFLOXACIN (CIP) <=0.25 Susceptible ESBL (-/+) (ESBL) Negative GENTAMICIN (GM) <=2 Susceptible NITROFURANTOIN (FT) <=16 Susceptible PIP/TAZO (TZP) <=2/4 Susceptible TOBRAMYCIN (TOB) <=2 Susceptible TRIMETH/SULFA (SXT) <=0.5/9.5 Susceptible Normal [facility] Comment on above: Performed By: #### 5 0608 #### [address] APTTon 11-06-2021 aPTT Coag (Bld) [Time] 28.7 s Normal 25.0-35.0 [facility] Comment on above: Result Comment: ALL RESULTS MUST BE INTERPRETED WITH RESPECT TO BLOOD DRAWING ARTIFACT OR DILUTION ERROR OF ANTICOAGULANT AT THE TIME OF SAMPLING. THE APTT SHOULD NOT BE USED TO MONITOR UNFRACTIONATED HEPARIN THERAPY, THIS LABORATORY NO LONGER HAS AN ESTABLISHED THERAPEUTIC RANGE BASED ON THE APTT. IT IS RECOMMENDED THAT THE [facility] - HEPARIN ASSAY (ANTI-XA ACTIVITY) BE USED FOR THIS PURPOSE. Performed By: #### 5 0608 #### [address] CBC W/DIFFon 11-06-2021 ABS IMM GRANS 0.0 10*3/uL Normal 0.0-0.2 [facility] Comment on above: Performed By: #### 5 0608 #### [facility] [address] ABS NEUTROPHILS 7.6 10*3/uL Normal 1.6-7.6 The [facility] Comment on above: Performed By: #### 5 0608 #### [facility] [address] [place] [id number], [facility] Basophils (Bld) [#/Vol] 0.0 10*3/uL Normal 0.0-0.2 [facility] Comment on above: Performed By: #### 5 0608 #### [facility] [address] [place] [address], [facility] Basophils/100 WBC (Bld) 0.1 % Normal 0.0-1.0 [facility] Comment on above: Performed By: #### 5 0608 #### [facility] [address] [facility] [place] [address], [facility] Eosinophils (Bld) [#/Vol] 0.0 10*3/uL Normal 0.0-0.5 [facility] Comment on above: Performed By: #### 5 0608 #### [facility] [address] [facility] [place] [address], [facility] Eosinophils/100 WBC (Bld) 0.0 % Normal 0.0-6.0 [facility] Comment on above: Performed By: #### 5 0608 #### [facility] [address] [facility]. [address] Erythrocyte distribution width (RBC) [Ratio] 12.7 % Normal 11.5-15.0 [facility] Comment on above: Performed By: #### 5 0608 #### [facility] [address] [facility] [place] [address], [facility] Hematocrit (Bld) [Volume fraction] 38.2 % Normal 36.0-45.0 [facility] Comment on above: Performed By: #### 5 0608 #### [facility] [address] [facility] [place] [address], [facility] Hemoglobin (Bld) [Mass/Vol] 12.4 g/dL Normal 12.0-15.0 [facility] Comment on above: Performed By: #### 5 0608 #### [facility] [address] IMMATURE GRANS 0.4 % Normal 0.0-1.0 The [facility] nisa [facility] Comment on above: Performed By: #### 5 0608 #### [facility] [address] [place] [address], [facility] Lymphocytes (Bld) [#/Vol] 1.1 10*3/uL Low 1.2-4.0 [facility] Comment on above: Performed By: #### 5 0608 #### [facility] [address] [place] [address], [facility] Lymphocytes/100 WBC (Bld) 11.2 % Low 20.0-45.0 [facility] Comment on above: Performed By: #### 5 0608 #### [facility] [address] [place] [address], [facility] MCH (RBC) [Entitic mass] 30.0 pg Normal 27.0-33.0 [facility] Comment on above: Performed By: #### 5 0608 #### [facility] [address] [place] [address], [facility] MCHC (RBC) [Mass/Vol] 32.5 g/dL Normal 32.0-35.0 [facility] Comment on above: Performed By: #### 5 0608 #### [facility] [address] [place] [address], [facility] MCV (RBC) [Entitic vol] 92.5 fL Normal 82.0-98.0 [facility] Comment on above: Performed By: #### 5 0608 #### [facility] [address] [place] [address], [facility] Monocytes (Bld) [#/Vol] 1.0 10*3/uL Normal 0.1-1.0 [facility] Comment on above: Performed By: #### 5 0608 #### [facility] [address] [place] [id number], [facility] MONOS 9.8 % Normal 5.0-12.0 [facility] Comment on above: Performed By: #### 5 0608 #### [facility] [address] [facility] [address], [facility] Neutrophils/100 WBC (Bld) 78.5 % High 40.0-72.0 [facility] Comment on above: Performed By: #### 5 0608 #### [facility] [address] [place] [address], [facility] Nucleated RBC/100 WBC (Bld) [Ratio] 0 % Normal 0-0 [facility] Comment on above: Performed By: #### 5 0608 #### [facility] [address] [place] [address], [facility] PLAT CNT 149 10*3/uL Low 150-400 The [facility] Comment on above: Performed By: #### 5 0608 #### [facility] [address] [place] [address], [facility] RBC (Bld) [#/Vol] 4.13 10*6/uL Normal 3.80-5.00 [facility] Comment on above: Performed By: #### 5 0608 #### [facility] [address] [place] [address], [facility] WBC (Bld) [#/Vol] 9.65 10*3/uL Normal 4.00-10.60 [facility] Comment on above: Performed By: #### 5 0608 #### [place] [address], [facility] CHEST 1 [facility] 11-06-2021 CHEST 1 [facility] Department of Radiology [address] [place] [address] [phone] ======== Patient Name: MYRANDA YANES : 1940 Sex: F Age: Race: White Pt. Location: [facility] Patient Status: E Ordered Date: 11/06/2021 4:50:00 AM Completed Date: 11/06/2021 06:11 AM Requesting Provider: NITO BARBER Attending Provider: NITO BARBER Report Copy To: Signs & Symptoms: Trauma History: Comments: Infiltrates Exam: CHEST 1 VW ======== CHEST 1 VW HISTORY: Trauma. Fall. COMPARISON: None FINDINGS: AP supine film obtained. The cardiomediastinal silhouette is within normal limits. No pleural effusion or pneumothorax. No consolidation. Deformity of the proximal right humeral diaphysis, likely sequelae of remote trauma. IMPRESSION: No radiographic evidence of acute cardiopulmonary process. Approved by:Chente Key11/06/2021 6:31 AM. I, Mandeep Alvarado,have reviewed the image(s) and agree with the findings in this report. Electronically signed: Mandeep Alvarado. Transcribed by: [email or web address], User Resident: CHENTE MONSALVE Electronically Signed by: MANDEEP ALVARADO @ 11/06/2021 06:38 AM I personally read this/these film(s) with this resident Normal [facility] Comment on above: Order Comment: Crite brittaney for reflexing a culture was not met. Please call the lab at [phone] within 24 hours of collection time if culture is needed COMP METABOLIC PANELon 11-06 Albumin [Mass/Vol] 3.9 g/dL Normal 3.5-5.7 [facility] Comment on above: Performed By: #### 8 6002 #### [facility] [address] [place] [address], [place] ALKALINE PHOSPH 66 IU/L Normal 34-104 [facility] Comment on above: Performed By: #### 8 6002 #### [facility] [address] [place] [address], [place] ALT [Catalytic activity/Vol] 9 U/L Normal 7-52 [facility] Comment on above: Performed By: #### 8 6002 #### [facility] [address] [place] [address], [place] AST [Catalytic activity/Vol] 18 U/L Normal 13-39 [facility] Comment on above: Performed By: #### 8 6002 #### [facility] [address] [place] [address], [place] Bilirubin [Mass/Vol] 0.8 mg/dL Normal 0.3-1.0 [facility] Comment on above: Performed By: #### 8 6002 #### [facility] [address] [place] [address], [place] Calcium [Mass/Vol] 9.0 mg/dL Normal 8.6-10.3 [facility] Comment on above: Performed By: #### 8 6002 #### [facility] [address] [place] [address], [place] Chloride [Moles/Vol] 102 mmol/L Normal 98-107 [facility] Comment on above: Performed By: #### 8 6002 #### [facility] [address] [place] [address], [place] CO2 [Moles/Vol] 26 mmol/L Normal 21-31 [facility] Comment on above: Performed By: #### 8 6002 #### [facility] [address] [place] [address], [place] Creatinine [Mass/Vol] 0.91 mg/dL Normal 0.60-1.20 [facility] Comment on above: Performed By: #### 8 6002 #### [facility] [address] [place] [address], [facility] eGFR- non- 59 ml/min/1.73sq m Abnormal >60 [facility] Comment on above: Result Comment: Calc ulation may not be valid for patients over 70 years Performed By: #### 8 6002 #### [facility] [address] [place] [address], [place] GFR/1.73 sq M.predicted among blacks MDRD (S/P/Bld) [Vol rate/Area] mL/min/{1.73_m2} Normal >60 [facility] Comment on above: Result Comment: Calc ulation may not be valid for patients over 70 years Performed By: #### 8 6002 #### [facility] [address] [place] [address], [place] Glucose [Mass/Vol] 128 mg/dL High 70-100 [facility] Comment on above: Performed By: #### 8 6002 #### [facility] [address] [place] [address], [place] Potassium [Moles/Vol] 3.8 mmol/L Normal 3.5-5.1 [facility] Comment on above: Performed By: #### 8 6002 #### [facility] [address] [place] [address], [place] Protein [Mass/Vol] 7.3 g/dL Normal 6.0-8.3 [facility] Comment on above: Performed By: #### 8 6002 #### [facility] [address] [place] [address], [place] Sodium [Moles/Vol] 139 mmol/L Normal 136-145 [facility] Comment on above: Performed By: #### 8 6002 #### [address] [place] [address], [facility] Urea nitrogen [Mass/Vol] 20 mg/dL Normal 7-25 [facility] Comment on above: Performed By: #### 8 6002 #### [address] BRAIN WO CONTRASTon 11-06 CT BRAIN WO CONTRAST [facility] Department of Radiology [address] [place] [phone] ======== Patient Name: MYRANDA YANES : 1940 Sex: F Age: Race: White Pt. Location: [facility] Patient Status: E Ordered Date: 11/06/2021 4:45:00 AM Completed Date: 11/06/2021 05:59 AM Requesting Provider: NITO BARBER Attending Provider: NITO BARBER Report Copy To: Signs & Symptoms: Trauma History: See Comments Comments: Bleed Exam: CT BRAIN WO CONTRAST ======== CT BRAIN WO CONTRAST HISTORY: Trauma. Fall. COMPARISON: None TECHNIQUE: CT brain without intravenous contrast. Automated exposure control was utilized. All CT scans at this facility use dose modulation, iterative reconstruction, and/or weight based dosing when appropriate to reduce radiation dose to as low as reasonably achievable. FINDINGS: No midline shift, mass effect, acute intracranial hemorrhage, or evidence of acute large vessel ischemia/infarct. Mild, diffuse cerebral volume loss with proportionate prominence of the ventricles, cisterns, and sulci. Hypoattenuation of the periventricular white matter, likely related to chronic microvascular ischemic disease. Brainstem and cerebellum are unremarkable. Visualized intraorbital contents and the infratemporal soft tissues show no acute abnormality. The visualized paranasal sinuses and mastoid air cells are clear. Osseous structures in skull base and calvarium show no acute abnormality. IMPRESSION: No acute intracranial findings. Approved by:Chnete Monsalveon11/06/2021 6:04 AM. I, Mandeep Alvarado,have reviewed the image(s) and agree with the findings in this report. Electronically signed: Mandeep Alvarado. Transcribed by: [email or web address], User Resident: CHENTE MONSALVE Electronically Signed by: MANDEEP ALVARADO @ 11/06/2021 06:14 AM I personally read this/these film(s) with this resident Normal [facility] Comment on above: Order Comment: Crite brittaney for reflexing a culture was not met. Please call the lab at [phone] within 24 hours of collection time if culture is needed FEMUR LEFT 2 VWSon 2 FEMUR LEFT 2 VWS [facility] Department of Radiology [address] [place] [phone] ======== Patient Name: MYRANDA YANES : 1940 Sex: F Age: Race: White Pt. Location: [facility] Patient Status: E Ordered Date: 11/06/2021 4:55:00 AM Completed Date: 11/06/2021 06:11 AM Requesting Provider: NITO BARBER Attending Provider: NITO BARBER Report Copy To: Signs & Symptoms: Pain History: Comments: FX Exam: FEMUR LEFT 2 VWS ======== FEMUR LEFT 2 VWS HISTORY: Left hip pain status post fall COMPARISON: None FINDINGS: AP and lateral views obtained. Comminuted left intertrochanteric fracture with increased varus angulation. No dislocation. The remaining osseous structures show no acute abnormality. Tricompartmental degenerative changes of the knee. IMPRESSION: Comminuted left intertrochanteric fracture. Approved by:Chente Key11/06/2021 6:34 AM. I, Mandeep Alvarado,have reviewed the image(s) and agree with the findings in this report. Electronically signed: Mandeep Alvarado. Transcribed by: [email or web address], User Resident: CHENTE MONSALVE Electronically Signed by: MANDEEP ALVARADO @ 11/06/2021 06:38 AM I personally read this/these film(s) with this resident Normal [facility] Comment on above: Order Comment: FX HIP LEFT 1 OR 2 VWS WITH PEL VISon 11-06-2021 HIP LEFT 1 OR 2 VWS WITH PELVIS [facility] Department of Radiology [address] [place] [phone] ======== Patient Name: MYRANDA YANES : 1940 Sex: F Age: Race: White Pt. Location: [facility] Patient Status: I Ordered Date: 11/06/2021 6:50:00 AM Completed Date: 11/06/2021 03:09 PM Requesting Provider: JASKARAN BEAL Attending Provider: NITO BARBER Report Copy To: Signs & Symptoms: intra op left hip History: Comments: left hip cephalomedullary nail Exam: HIP LEFT 1 OR 2 VWS WITH PELVIS ======== HIP LEFT 1 OR 2 VWS WITH PELVIS intraoperative fluoroscopy 11/06/2021 3:09 PM CLINICAL INDICATIONS: intra op left hip, ORIF left hip fracture. Intraoperative fluoroscopy. TECHNOLOGIST COMMENTS: left hip cephalomedullary nail with Dr. Beal 1 minute 22 seconds of fluoro time 21.13 mGy QUESTION FOR THE RADIOLOGIST: left hip cephalomedullary nail PROTOCOL: AP(PA) and Lateral views were obtained. COMPARISON: 11/06/2021 FINDINGS: AP and lateral fluoroscopic images of the left hip submitted, 13 total images demonstrating overlying surgical instruments and hardware. IMPRESSION: Intraoperative fluoroscopy for left hip surgery, please refer to operative report. Electronically signed: Duarte Pollard. Transcribed by: [email or web address], User Resident: Electronically Signed by: DUARTE POLLARD @ 11/06/2021 03:16 PM Normal [facility] Comment on above: Order Comment: Crite brittaney for reflexing a culture was not met. Please call the lab at [phone] within 24 hours of collection time if culture is needed LACTATE BLOODon 11-06-2021 Lactate [Moles/Vol] 3.3 mmol/L High .5-2.2 [facility] Comment on above: Result Comment: M-CR ITICAL RESULT(S) REVIEWED, CALLED TO AND READ BACK BY HANK KAPOOR RN AT 0711 ON 11.06.21. Performed By: #### 1 0054 ####[place] [address] [place] [address], [facility] LACTATE WITH REFLEXon 2021 Lactate [Moles/Vol] 2.6 mmol/L High .5-2.2 [facility] Comment on above: Order Comment: No: D o not add to previous draw Result Comment: M-OK EVIOUS CRITICAL RESULT 3.3 Performed By: #### 5 0608 #### [address] [place], [place] [id number] [place] [address] LIPASE BLOODon 11-06-2021 LIPASE 15 Units/L Normal [facility] Comment on above: Performed By: #### 8 6002 #### [address] [place], [place] [id number] [place] [address] PELVIS 1 OR 2 VWSon 11-07-19 22 PELVIS 1 OR 2 VWS [facility] Department of Radiology [address] [place] [address] [phone] ======== Patient Name: MYRANDA YANES : 1940 Sex: F Age: Race: White Pt. Location: [facility] Patient Status: E Ordered Date: 11/06/2021 4:55:00 AM Completed Date: 11/06/2021 06:11 AM Requesting Provider: NITO BARBER Attending Provider: NITO BARBER Report Copy To: Signs & Symptoms: Pain History: Comments: FX Exam: PELVIS 1 OR 2 VWS ======== PELVIS 1 OR 2 VWS HISTORY: Left hip pain status post fall COMPARISON: None FINDINGS: AP view of the pelvis obtained. Comminuted left intertrochanteric fracture with increased varus angulation. No dislocation. The remaining osseous structures are unremarkable. IMPRESSION: Comminuted left intertrochanteric fracture. Approved by:Chente Key11/06/2021 6:33 AM. I, Mandeep Alvarado,have reviewed the image(s) and agree with the findings in this report. Electronically signed: Mandeep Alvarado. Transcribed by: [email or web address], User Resident: CHENTE MONSALVE Electronically Signed by: MANDEEP ALVARADO @ 11/06/2021 06:38 AM I personally read this/these film(s) with this resident Normal [facility] Comment on above: Order Comment: Crite brittaney for reflexing a culture was not met. Please call the lab at [phone] within 24 hours of collection time if culture is needed POC GLUCOSE EDon 11-06-2021 Glucose [Mass/Vol] 107 mg/dL High 70-100 [facility] Comment on above: Performed By: #### 8 5499 #### [facility] [address] [place] [address], [facility] POC GLUCOSE LABon 11-06-2021 Glucose [Mass/Vol] 165 mg/dL High 70-100 [facility] Comment on above: Performed By: #### 8 5499 #### [facility] [address] [place] [address], [facility] Glucose [Mass/Vol] 153 mg/dL High 70-100 [facility] Comment on above: Performed By: #### 8 [id number] #### [facility] [address] [place] [address], [facility] POC SARS COV2 IDon 2 SARS-CoV-2 (COVID-19) RNA JAMMIE+probe Ql (Unsp spec) Negative Normal NEGATIVE The [facility] Comment on above: Result Comment: ID N OW COVID-19 assay performed on the ID NOW Instrument is a rapid molecular in vitro diagnostic test utilizing an isothermal nucleic acid amplification technology intended for the qualitative detection of nucleic acid from the SARS-CoV-2 virus in direct anterior nasal (nasal), nasopharyngeal or throat swabs from individuals who are suspected of COVID-19 by their healthcare provider within the first seven days of the onset of symptoms. Testing is limited to laboratories certified under the Clinical Laboratory Improvement Amendments of 1988 (CLIA), 42 U.S.C. ???263a,that meet the requirements to perform high, moderate, or waived complexity tests. The ID NOW COVID-19 assay is also authorized for use at the Point of Care (POC), i.e., in patient care settings operating under a CLIA Certificate of Waiver, Certificate of Compliance, or Certificate of Accreditation. Performed By: #### 3 1595 #### [facility] [address] PROTHROMBIN TIMEon 2 INR Coag (PPP) [Relative time] 1.01 {INR} Normal 0.91-1.16 [facility] Comment on above: Result Comment: ACCC P RECOMMENDED INR FOR WARFARIN THERAPY ------ ------- CONDITION INR PROPHYLAXIS OF VENOUS THROMBOSIS 2-3 (HIGH-RISK SURGERY) TREATMENT OF VENOUS THROMBOSIS 2-3 TREATMENT OF PULMONARY EMBOLISM 2-3 PREVENTION OF SYSTEMIC EMBOLISM: 2-3 ACUTE MYOCARDIAL INFARCTION TISSUE HEART VALVES VALVULAR HEART DISEASE ATRIAL FIBRILLATION RECURRENT SYSTEMIC EMBOLISM MECHANICAL HEART VALVE 2.5-3.5 FROM: ORAL ANTICOAGULANTS. MECHANISM OF ACTION, CLINICAL EFFECTIVENESS, AND OPTIMAL THERAPEUTIC RANGE. CHEST 1995;108:231S-246S. Performed By: #### 5 0608 #### [facility] [address] [place] [address], [facility] PT Coag (PPP) [Time] 13.3 s Normal 12.3-14.8 [facility] Comment on above: Result Comment: ALL RESULTS MUST BE INTERPRETED WITH RESPECT TO BLOOD DRAWING ARTIFACT OR DILUTION ERROR OF ANTICOAGULANT AT THE TIME OF SAMPLING. Performed By: #### 5 0608 #### [facility] [address] [facility] [address] TROPONIN-Ion 11-06-2021 Troponin I.cardiac [Mass/Vol] 0.00 ng/mL Normal 0.00-0.04 [facility] Comment on above: Result Comment: REFE RENCE RANGES: 0.00 - 0.04 ng/ml NORMAL 0.05 - 0.50 ng/ml INDETERMINATE > 0.50 ng/ml CONSISTENT WITH AN M.I. Performed By: #### 8 6002 #### [facility] [address] [facility] [place] [address], [facility] TYPE AND SCREENon 11-06-2021 ABO INTERPRETATION A Normal The [facility] Comment on above: Performed By: #### 6 2586 ####[facility]3000 [facility].[address] RH INTERPRETATION Positive Normal The [facility] Comment on above: Performed By: #### 6 2586 ####[facility] URINALYSIS REFLEXon 11-07-19 22 Appearance (U) CLOUDY Abnormal CLEAR The [facility] Comment on above: Order Comment: Crite brittaney for reflexing a culture was met. Urine Culture and sensitivitywill be performed. Performed By: #### 3 4 #### [facility] [address] [facility] [address], [facility] Bilirubin Ql (U) Negative Normal NEGATIVE The [facility] Comment on above: Order Comment: Crite brittaney for reflexing a culture was met. Urine Culture and sensitivitywill be performed. Performed By: #### 3 2044 #### [facility] [address] [facility] [address], [facility] Color (U) YELLOW Normal YELLOW [facility] Comment on above: Order Comment: Crite brittaney for reflexing a culture was met. Urine Culture and sensitivitywill be performed. Performed By: #### 3 2044 #### [facility] [address] [place] [address], [place] EPIS FEW Normal FEW,OCC,NONE SEEN [facility] Comment on above: Order Comment: Crite brittaney for reflexing a culture was met. Urine Culture and sensitivitywill be performed. Performed By: #### 3 2043 #### [facility] [address] [place] [address], [place] Glucose Ql (U) Negative Normal NEGATIVE The [facility] Comment on above: Order Comment: Crite brittaney for reflexing a culture was met. Urine Culture and sensitivitywill be performed. Performed By: #### 3 2043 #### [facility] [address] [place] [address], [place] Hemoglobin Ql (U) MODERATE Abnormal NEGATIVE The [facility] Comment on above: Order Comment: Crite brittaney for reflexing a culture was met. Urine Culture and sensitivitywill be performed. Performed By: #### 3 2043 #### [facility] [address] [place] [address], [place] KETONE Negative Normal NEGATIVE [facility] Comment on above: Order Comment: Crite brittaney for reflexing a culture was met. Urine Culture and sensitivitywill be performed. Performed By: #### 3 2043 #### [facility] [address] [place] [address], [place] LEUK BEV MODERATE Abnormal NEGATIVE [facility] Comment on above: Order Comment: Crite brittaney for reflexing a culture was met. Urine Culture and sensitivitywill be performed. Performed By: #### 3 2043 #### [facility] [address] [place] [address], [place] MUCUS THREADS MOD Abnormal NONE SEEN The [facility] Comment on above: Order Comment: Crite brittaney for reflexing a culture was met. Urine Culture and sensitivitywill be performed. Performed By: #### 3 2043 #### [facility] [address] Nitrite Ql (U) Positive Abnormal NEGATIVE The [facility] Comment on above: Order Comment: Crite brittaney for reflexing a culture was met. Urine Culture and sensitivitywill be performed. Performed By: #### 3 2043 #### [facility] [address] [place] [address], [facility] pH (U) 5.0 [pH] Normal 5.0-8.0 [facility] Comment on above: Order Comment: Crite brittaney for reflexing a culture was met. Urine Culture and sensitivitywill be performed. Performed By: #### 3 2043 #### [facility] [address] [facility]. [address] Protein Ql (U) 30 mg/dL Abnormal NEGATIVE The [facility] Comment on above: Order Comment: Crite brittaney for reflexing a culture was met. Urine Culture and sensitivitywill be performed. Performed By: #### 3 2043 #### [facility] [address] [facility]. [address] RBC 6-10 Abnormal NONE SEEN [facility] Comment on above: Order Comment: Crite brittaney for reflexing a culture was met. Urine Culture and sensitivitywill be performed. Performed By: #### 3 2043 #### [facility] [address] [facility]. [address] SPEC GRAV 1.014 Low 1.015-1.020 The [facility] Comment on above: Order Comment: Crite brittaney for reflexing a culture was met. Urine Culture and sensitivitywill be performed. Performed By: #### 3 2043 #### [facility] [address] [facility] [address], [facility] WBC UA 51-100 Abnormal NONE SEEN [facility] Comment on above: Order Comment: Crite brittaney for reflexing a culture was met. Urine Culture and sensitivitywill be performed. Performed By: #### 3 2043 #### [facility] [address] [place] [address], [facility] VITAMIN D 25-HYDROXYon 11-06 VITAMIN D 25-OH 23.6 ng/mL Low 30.0-80.0 The [facility] Comment on above: Result Comment: >80. 0 Toxicity possible Performed By: #### 8 6002 #### [facility] [address] [place] [address], [facility] AMMONIAon 11-05-2021 Ammonia (P) [Moles/Vol] 24 umol/L Normal 11-32 The [facility] Comment on above: Performed By: #### A MM ####[facility] [address] [place] [address]Dr. Lynettesujata Taylor BNPon 11-05-2021 Natriuretic peptide B (Bld) [Mass/Vol] 350.0 pg/mL Normal <=1,800.0 [facility] Comment on above: Performed By: #### H STROPN, CMP, BNP ####[facility] [address] [place] [address]Dr. Arnoldo Taylor CBC AUTO DIFFon 11-05-2021 BASO # 0.0 103/ul Normal 0.0-0.1 [facility] Comment on above: Performed By: #### C BC ####[facility] [address] [place] [address]Dr. Arnoldo Taylor Basophils/100 WBC (Bld) 0.2 % Normal 0.2-2.0 [facility] Comment on above: Performed By: #### C BC ####[facility] [address] [place] [address]Dr. Arnoldo Taylor EO # 0.2 103/ul Normal 0.0-0.7 [facility] Comment on above: Performed By: #### C BC ####[facility] [address] [place] [address]Dr. Arnoldo Taylor Eosinophils/100 WBC (Bld) 2.3 % Normal 0.9-7.0 [facility] Comment on above: Performed By: #### C BC ####[facility] [address] [place], [place] [address]Dr. Arnoldo Taylor Erythrocyte distribution width (RBC) [Ratio] 12.7 % Normal 11.0-15.0 [facility] Comment on above: Performed By: #### C BC ####[facility] [address] [place], [place] [address]Dr. Arnoldo Taylor Hematocrit (Bld) [Volume fraction] 38.1 % Normal 36.0-48.0 [facility] Comment on above: Performed By: #### C BC ####[facility] Inps[address]ues[address] [place], [place] [address]Dr. Arnoldo Taylor Hemoglobin (Bld) [Mass/Vol] 12.4 g/dL Normal 12.0-16.0 [facility] Comment on above: Performed By: #### C BC ####[facility] [address] [place], [place] [address]Dr. Arnoldo Taylor IG # 0.02 10e3/ul Normal 0.00-0.03 [facility] Comment on above: Performed By: #### C BC ####[facility] X[address]exl[address] [place], [place] [address]Dr. Arnoldo Brandon IG % 0.2 % Normal 0.0-0.5 [facility] Comment on above: Performed By: #### C BC ####[facility] Glrfx[address]ej[address] [place], [place] [address]Dr. Arnoldo Brandon LYMPH # 3.5 103/ul Normal 1.2-3.8 [facility] Comment on above: Performed By: #### C BC ####[facility] [address] [place], [place] [address]Dr. Lynettesujata Taylor Lymphocytes/100 WBC (Bld) 37.9 % Normal 20.5-60.0 [facility] Comment on above: Performed By: #### C BC ####[facility] [address] [place], [place] [address]Dr. Lynettesujata Taylor MANUAL DIFF REQ NO Normal The [facility] Comment on above: Performed By: #### C BC ####[facility] Xcir[address]xiz[address] [place], [place] [address]Dr. Arnoldo Taylor MCH (RBC) [Entitic mass] 30.1 pg Normal 26.7-34.0 [facility] Comment on above: Performed By: #### C BC ####[facility] [address] [place] [address]Dr. Arnoldo Taylor MCHC (RBC) [Mass/Vol] 32.5 g/dL Normal 29.9-35.2 [facility] Comment on above: Performed By: #### C BC ####[facility] [address] [place] [address]Dr. Arnoldo Taylor MCV (RBC) [Entitic vol] 92.5 fL Normal 81.0-99.0 [facility] Comment on above: Performed By: #### C BC ####[facility] [address]vjtr[address]mt[address] [place] [address]Dr. Arnoldo Taylor MONO # 1.0 103/ul Critically high 0.3-0.8 The [facility] Comment on above: Performed By: #### C BC ####[facility] Lieketqun[address] [place], [place] [address]Dr. Arnoldo Brandon Monocytes/100 WBC (Bld) 10.2 % Normal 1.7-12.0 [facility] Comment on above: Performed By: #### C BC ####[facility] [address] [place], [place] [address]Dr. Arnoldo Taylor NEUT # 4.6 103/ul Normal 1.4-6.5 The [facility] Comment on above: Performed By: #### C BC ####[facility] [address] [place], [place] [address]Dr. Arnoldo Brandon Neutrophils/100 WBC (Bld) 49.2 % Normal 43.0-75.0 [facility] Comment on above: Performed By: #### C BC ####[facility] Zh[address] [place], [place] [address]Dr. Arnoldo Taylor Platelet mean volume (Bld) [Entitic vol] 10.8 fL Normal 9.5-13.5 [facility] Comment on above: Performed By: #### C BC ####[facility] [address] [place], [place] [address]Pb. Arnoldo Taylor PLT 159 103/ul Normal 150-450 [facility] Comment on above: Performed By: #### C BC ####[facility] [address] [place], [place] [address]Nw. Arnoldo Taylor RBC 4.12 106/ul Critically low 4.20-5.40 The [facility] Comment on above: Performed By: #### C BC ####[facility] [address] [place], [place] [address]Qs. Arnoldo Taylor WBC 9.3 103/ul Normal 4.0-11.0 [facility] Comment on above: Performed By: #### C BC ####[facility] [address] [place], [place] [address]Of. [address]o Taylor CT HIP LT WO CONon CT HIP LT WO CON Normal The [facility]on SARS-CoV-2 (COVID-19) RNA JAMMIE+probe Ql (Unsp spec) Not detected Normal NOT DETECTED The [facility] Comment on above: Result Comment: When diagnostic testing is negative, the possibility of a false negative should be considered inthe context of a patient's recent exposures and the presence of clinical signs and symptomsconsistent with SARS-CoV-2.This test is not yet approved or cleared by the [place] FDA. When there are no FDA-approved or cleared tests available, and other criteria are met, FDA can make tests available under an emergency access mechanism called an Emergency Use Authorization (EUA). The EUA for this test is supported by the [place] of Health and Human Service's declaration that circumstances exist to justify the emergency use of in vitro diagnostics for the detection and/or diagnosis of the virus that causes COVID-19. This EUA will remain in effect for the duration of the COVID-19 declaration justifying emergency of IVDs, unless it is terminated or revoked by the FDA (after which the test may no longer be used). Performed By: #### C VDTBH ####[facility] [address] [place], [place] [address]Ig. Arnoldo Taylor PROF 14(COMP METB)on 022 Albumin [Mass/Vol] 3.6 g/dL Normal 3.4-5.0 [facility] Comment on above: Performed By: #### H STROPN, CMP, BNP ####[facility] [address] [place] [address]Dr. Arnoldo Taylor Albumin/Globulin [Mass ratio] 0.8 {ratio} Normal [facility] Comment on above: Performed By: #### H STROPN, CMP, BNP ####[facility] [address] [place] [address]Dr. Arnoldo Taylor ALP [Catalytic activity/Vol] 79 U/L Normal 46-116 [facility] Comment on above: Performed By: #### H STROPN, CMP, BNP ####[facility] [address] [place], [place] [address]Dr. Arnoldo Taylor ALT [Catalytic activity/Vol] 19 U/L Normal 14-59 [facility] Comment on above: Performed By: #### H STROPN, CMP, BNP ####[facility] [address] [place] [address]Dr. Arnoldo Taylor Anion gap [Moles/Vol] 10.8 mmol/L Normal [facility] Comment on above: Performed By: #### H STROPN, CMP, BNP ####[facility] [address] [place], [place] [address]Dr. Arnoldo Taylor AST [Catalytic activity/Vol] 20 U/L Normal 15-37 [facility] Comment on above: Performed By: #### H STROPN, CMP, BNP ####[facility] [address] [place] [address]Dr. Arnoldo Taylor Bilirubin [Mass/Vol] 0.5 mg/dL Normal 0.2-1.0 [facility] Comment on above: Performed By: #### H STROPN, CMP, BNP ####[facility] [address]ym[address] [place], [place] [address]Dr. Arnoldo Taylor Calcium [Mass/Vol] 9.4 mg/dL Normal 8.5-10.1 The [facility] Comment on above: Performed By: #### H STROPN, CMP, BNP ####[facility] [address] [place] [address]Dr. Arnoldo Taylor Chloride [Moles/Vol] 104 mmol/L Normal 98-107 [facility] Comment on above: Performed By: #### H STROPN, CMP, BNP ####[facility] [address] [place] [address]Dr. Arnoldo Taylor CO2 [Moles/Vol] 28.0 mmol/L Normal 21.0-32.0 [facility] Comment on above: Performed By: #### H STROPN, CMP, BNP ####[facility] [address] [place] [address]Dr. Arnoldo Taylor Creatinine [Mass/Vol] 1.00 mg/dL Normal 0.55-1.02 [facility] Comment on above: Performed By: #### H STROPN, CMP, BNP ####[facility] [address] [place], [place] [address]Dr. Arnoldo Taylor EGFR-AF BURKINAN >60 Normal >=60 [facility] Comment on above: Performed By: #### H STROPN, CMP, BNP ####[facility] [address] [place], [place] [address]Dr. Arnoldo Taylor EGFR-NON AF BURKINAN 53 mL/min/1.73m2 Critically low >=60 [facility] Comment on above: Performed By: #### H STROPN, CMP, BNP ####[facility] [address] [place] [address]Dr. Arnoldo Taylor Globulin (S) [Mass/Vol] 4.4 g/dL Normal [facility] Comment on above: Performed By: #### H STROPN, CMP, BNP ####[facility] [address] [place] [address]Dr. Arnoldo Taylor Glucose [Mass/Vol] 104 mg/dL Normal 74-106 [facility] Comment on above: Performed By: #### H STROPN, CMP, BNP ####[facility] [address] [place] [address]Dr. Arnoldo Taylor Potassium [Moles/Vol] 3.8 mmol/L Normal 3.5-5.1 [facility] Comment on above: Performed By: #### H STROPN, CMP, BNP ####[facility] [address] [place] [address]Dr. Arnoldo Taylor Protein [Mass/Vol] 8.0 g/dL Normal 6.4-8.2 The [facility] Comment on above: Performed By: #### H STROPN, CMP, BNP ####[facility] [address] [place] [address]Dr. Arnoldo Taylor Sodium [Moles/Vol] 139 mmol/L Normal 136-145 [facility] Comment on above: Performed By: #### H STROPN, CMP, BNP ####[facility] [address] [place] [address]Dr. Lynettesujata Taylor Urea nitrogen [Mass/Vol] 19.0 mg/dL Critically high 7.0-18.0 [facility] Comment on above: Performed By: #### H STROPN, CMP, BNP ####[facility] [address] [place] [address]Dr. Lynettesujata Taylor Urea nitrogen/Creatinine [Mass ratio] 19.0 mg/mg Normal [facility] Comment on above: Performed By: #### H STROPN, CMP, BNP ####[facility] [address] [place] [address]Dr. Arnoldo Taylor TROPONIN, HIGH SENSITIVITYon 11-05-2021 HSTROP 6.0 pg/mL Normal 4.0-51.3 [facility] Comment on above: Result Comment: CUT- OFF POINTS HAVE BEEN ESTABLISHED BASED ON THE FOURTH UNIVERSAL DEFINITIONS OF MYOCARDIALINFARCTION. THE UPPER REFERENCE LIMIT (URL) OF TROPONIN, DEFINED THE 99TH PERCENTILE OFcTnI DISTRIBUTION IN A REFERENCE POPULATION, HAS BEEN CONFIRMED THE DECISION THRESHOLDFOR SC DIAGNOSIS. Performed By: #### H STROPN, CMP, BNP ####[facility] [address] [place] [address]Dr. Arnoldo Taylor XR FEMUR LTon 11-05-2021 XR FEMUR LT Normal [facility] XR HIP LT 2 3V W PELVISon XR HIP LT 2 3V W PELVIS Normal [facility] Outside Labson 06-29-2021 Outside Labs [id number] 01 [id number]#1.0 0CD:127 Normal [facility] Outside Labs [id number] 05 [id number]#1. 00CD:127 Normal [facility] Coding Summary.on 06-16-2021 Coding Summary. CD:[id number] Gh 0bWw+PGhlYWQ+TU0ARTMcH 14hqWDhgO4RL4vOAQ5SNTJ GGEZLWH4VWN4miYO8SAnkO 2VybiAv BbhraWGrJZ83QNu6YTO6nE hsDPhyyW7gmEVrG4p2VcFn SX46aA79JYusKOVsJfD6Vp ZpbjsgbWFy C1wxHyTnnUDfIed+PHRhYm xlIHdpZHRoPScxMDAlJyBz hCpaKB0hBt4dYBPuSHWnuI xhcHNlOiBj p4bdCEBtAFcqTX4wzRrfO7 GvsCY1CYOwk0x5Pw85oVQ+ HKPlDCD6rUuvUZwoq429Bg Kwn4dmYZA5 rNWiZYkxDFE6M40xj3M3ON YwPRObBIW7kDV0gX8bcRai evnvZ3YrhKAwRlF2EIV1yA LghH9sdNri cwvnkP3sCxu+U24BUX8GIG XXVR6JRdu6L8KwRuyqqOB+ ZW80URSlJG83hJHksLWve2 jlkBz1WpHi HAIyKAF5sGndPGcxl8CvON YyU67cyTFgs5Z6KMOvkNjl fCPdIwAimHH4uV9hRMxwrq pyr1hugzzn Zyvnk2tlew80aW46R95nRQ pyEHLmYHT7XQNpPTCwoUmv jm6ilS5nLu6+KAmjj3jbp5 fcaJi9DqZh UJMorwAxbZexLKQ8w2SdTl 75K0JpcQbqg9VuOey6vb60 eXJxu9U7fDF6UKhbCTFypO 4wTPssOmK5 DZVmMmUjeS47dFBnJTnrOs 0mvPxmaElaCX0fJCQeccyv PLIoyP7yLLBjpVQpmPtpGV 4wNTBpbjtm c952RlGmIFJ6ATScyUNqN2 SwnW9qChIuXJSlOXSiA8Go iHCfNHzhK138VJfyAoJ0XA MfesWmA6Eu YWEsqPvwBfX4g0I2Dw1Ur9 IwtrbeWVR4LOhgQADkHcQ8 SaVgCqL0T9UjGqh1YYNgxJ neEA3wM0Hu SGJxkbqkewruoUR1ROZrXM IplV56kHGmMAcyHt8bj9N2 d953PZZpWTOzbX03Gq6abM ogMTBwdCBU kL5zloefh1igbbmiIfBlWZ GxIDd6ATr8PGRanJykZkGi ZYI2KnF1ZBG6uLWvxB0ysK ngugvglR9a Oyc+Q47bxG0jTWN4YPY3yc ndYBDabpWbCT64ZA67B4Km PjwvdGFibGU+PGRpdiBzdH tzOR4zDpRg z4rft4TqCWtfS7RcXSGxSB hoGqu9BXYuFIE3fBG6pL4q BKGgBBsfx2G2aKS0M8Kutt Gfmh5ta3qd KTHbMPxuX97ewHSbv4E0VG BtqCC0DNGzyOgfVcRvlG14 Oyc+MFCbxAqxv7NxOdywa6 uiu2qnqQr7 SiDyNTMuzoEceUurKWX3w2 VmDw41Y47jWBcdGYOaGLJq MRUuDJGtlHydvh0flZ0mTb 8+PGNvbCB3 mJC7wI4kTIWcVqW2DKxfS4 69NzZytUWlLmnem4kfj8qr vDf2MyEeCYJpmzAzdGunWW Z7v2ZqJd69 G09lJKenRDXsMDBoUAMyQD RodDrffo3fbZ5aZk4+PC9j z0owuk50aL86oOO+PHRkIH Z5nIwvFBgr UQWgoX2xGFrlUeE2VIJlGh GooK54zFKlLZwsYw3zqXar hVriGA7tDTCbtangj676Xo Oaw9ywXLKm yNKoDHiiTXP2P45uq9H7JE PgSLNaEWB2zTR2oU7zfShv bjogbGVmdDsgdmVydGljYW paCDxnW193 IHRvcDsnPlBhdGllbnQgTm HiNFx7K0UpMrk5VEZraXbk EP6csCGtUYlkBs3igLyqgL chXR1aRWHd apjtp200KySey3vmWZXdwW FrYPfqOEJ3L32nz5P2KJSj KGVnTDN1xIL6vW9ovUimsy ogbGVmdDsg keGvdKudWUfcLNwoJ764UM RvcDsnPkJpcnRoIERhdGU6 MA11SS95kVXim5M8cYB0G6 BhZGRpbmct qkukkLS5NIGnVSKjfD73St 4cyUzaLz7yQAMtVZK1CYDv qHYrK8HbwL7xCiWtFPKiIU RwB6AmoHLl URgaZ758RBvsKlW3JZTitd OvY2KtZSTpiUvpVaF9i6I1 Tj3JE9V2DZ60PF96dSLbp1 J6iPH7R4Uh HHHnpluidblehSK7BMOxPJ BcpQ38Yj6rpKckSh1hEHPn YHL2UNUlzDRaX8JpwW0yIt AjMDAwMDAw C5FhrQFmBVqbE892ERusUg K6MKJqzyUhD8CpECKobVxn AaM6r8M4Zz5VCZy8FC84EI 50oCJsh5F7 iRM0N5DcJZAclivfkuhkrC Y1UUKiIFBegL15Ab4fgJmv Gk7iZSDgBWW4MPJibUVgA6 BvcX1iWmFh YNJxAZDzI6NdpSMjAGjcL6 46DRjrJnU8HOUiosAzX0Pt AABnnYazGcZ7h9N1Za0FGI IjIW13OSB9 eYE6SQ05SL74L9BqTeeedL FibGU+PHRhYmxlIHdpZHRo BKrqJEJzXbFfpUtgVX7bJg 9yZGVyLWNv lQhtqPLsGdFiu1xdILNsFO eqEZ0fwPjnL6ZzyUA3ATTz w3z7Nc18G61xB3LpcPQ+PG ZtqKI8zHY6 sL7eGvJzQhL7IAjqJ822Qk GbxMDnTonmz3jlq3dlkTt7 EnM9PCBzjrOpnXcrJSC2v4 PhFu53E35a IHdpZHRoPSIxNSUiIHZhbG npek7knA9kQi9+PGNvbCB3 rLU2uO5tGvKlIoC8MKdyH3 49InRvcCIv Eydsf2jka5lqbXi0DxXaIB RmsnVrqErgNVL6y2LyPx18 B2OmkQwal4AgCzs2fw19aB Geh3F5dEB2 P2GuWQXzotuhxZApvPdzEC 3hPVJhrbakDSXhkW6kFQLi R9d5ZgZqCxB6DGviE7Txrf Y7GJBknMJz OPugPHI5S85ad3F7KDLmES JbDMP5tWE6bY8ydRvfjyot bGVmdDsgdmVydGljYWwtYW nwK024ZZGp sDsnGJTxvE4qWVAtkIBmeB bpGB3xZURxlsruIvZAB6cm IFNISVJMRVkgQTwvdGQ+PH KqEDJ7fZav TShjOSBaaX9qPRKhD7d1Ci LqCrA0KAerR9BvYRUzligs Sl70kE1pExSjPiY1QXoyD5 CncbI6DFMv cDZwKZzkAYI5Q82tf4F3TT FjIOEiGMW2rEO6kW4gkIfb bjogbGVmdDsgdmVydGljYW iwLWqfA195 ZZTibSuaPmEgUsU7KeC8IM C2M8FeRvd9WTZasPshVL1v yFLdNAimQu8pzJyiiXhpIK 4wNTBpbjtw WPDrnO6iOBScnNWrvEelMK 7kDKVdsphbn159VkBgYSJ0 POVrxPIdA8PehN5mCeKpRP KbXHScU9Ir tHCsNLqlG650LDvcDbU8ZO JhumMpZ1OeTYFkyWbvTbE6 w6N6Vf14SSWMRILvdfzwgK Q+PHRkIHN0 iOxjEEhuJQLozG9iNNMpC7 s5PnLlVqM2ZEipO7AyFDAy xidzNb74cS4eWsMeWoX3OB ydA9YuwrY1 CDNjkVVyPUrlDJE0Y47hz9 J3BZSeMOZaVJH5jFJ0pM6b bGlnbjogbGVmdDsgdmVydG ljYWwtYWxp A917FGXpkTyqAlSorTGjWN wvdGQ+HTXkMGG1eQujXRje MHAjoY9tUFFfT8v6RrGhUe R1GMisH9Pu BDHqwrvwYh48xI0qBkGqDw Y9HOncE9CbffJ2VIHdhPDs HEsjPBX8W02ue5J0RXXcIE RxSWO7iEH8 qJ6vdJfitvrwkTDxpGbckp FfjEsfATytXVlvP933TFWw mRgkCb95aCRxhXutrjF6T2 RkPjwvdHI+ AD87OZXyAC51jOKucCKps8 swmVp2AsKeKDXeULV1yKqx YHkui2GrESIrZ90jzPZsc2 P9EAFvvIno tVKgJlQgcQQ8mP4kCMkzqc ybf7uzibikEutfk0kzvd89 wU23E43sGTzzSVHkGXSiUS UiIHZhbGln uz2aqD4kVx7+CNVthBF0tT C2dH0jRmZiFmP6SPugQ180 VyTjfEBbDycqi7pst4kqtM j0OsDqMRLt lyKipFaiTHZ1u6OmAe56X3 9sIHdpZHRoPSIyMCUiIHZh eZnkiw4csL6iMc9+PC9jb2 nurg83mW03 dHI+ENPwYAF7gBfdCIsqGL FhrU5bTMzwTqY0VMWoNzEh qG85kFVcEDgeXg4yjZizrV cmYU5cPHPb lsfxn652VpPxn4njNVDqgO CoQGcsSMG6W32wi1G5ETSu JRXoQBA9lXI6rL5alRyjcr ogbGVmdDsg uiSkfLwwCQqyZYqfZ638VJ FnyAatUxEayCRnK9eyiyWL YV4oUlkxaRK+NXNpFNC7bR xlPSdwYWRk gX1vABYeS9m5DuNmAjF0HO iiL6BjgvU1FJVxsDOuOQIw lOPQcN7fnixfb8ujketvQl AwMDAwMDt0 OLw8OOFstWzcYpPwQIT9Wm C3SZO3kQGyoE7bnSsatwmk mO9rArk+RklOOjwvdGQ+PH KvMTS5zMpz UFhwYYWexQ9gQCDdX7a5Oh CtEuP6DSdhR1PnfaU2QHRz vVMjJQEtxUXGnM7vwoxgk0 xvcjogIzAw PZNfCRx2ZCn0QKEbgUgoMl CfOMQ6InM0ISA8bNAmqH6z gXkoixedvA3tFla+TVJOOj wvdGQ+PHRk FYP0gTloMQfbDNKoeF2qPV YxQ3l5QpLlMbP8EEynZ9Zu xaG8BJPkyVMaMZNfuUWYsK 7snzbwr5db fwxzIhAzSOAbNSx1RJx8UK NizVvtCuHmTJQ0OcV4AZO6 oPAohU3bsHwaivarsN1gZd c+IPP4KPD2 EF65EC31B5PgDmacdFSveU U+PHRhYmxlIHdpZHRoPScx UPCtQdOhvBzoAO2dHr5zAS VyLWNvbGxh cHNl (more content not included)... Normal [facility] CT Chest w/o Contraston 06-02 CT Chest w/o Contrast Exam Date/Time: 06/12/2021 13:27 EST Reason for Exam: Interstitial lung disease;Other (please specify) Report IMPRESSION: 6 MM GROUNDGLASS NODULE AND 4 MM PULMONARY NODULE IN THE RIGHT LUNG APEX. RECOMMEND 1 YEAR FOLLOW-UP 1.6 CM HYPODENSE NODULE IN THE PERIPHERAL CALCIFICATION IN THE RIGHT LOBE OF THYROID GLAND. RECOMMEND THYROID ULTRASOUND. CLINICAL HISTORY: Interstitial lung disease COMPARISON: NONE. FINDINGS: CT scan of the chest was done without intravenous injection of contrast. There are fibrotic scarrings in the right middle lobe laterally. There is a discoid atelectasis in the lingular segment of the left upper lobe. There are pleural parenchymal thickening/scarring in the both lung apices. There is about 6 mm ground glass nodule in the right lung apex. There is about 4 mm, nodule in the right lung apex anteriorly. There is a calcified granuloma in the right lower lobe adjacent to the major fissure. There is no pleural effusion. There is a 1.6 cm hypodense nodule with peripheral calcification in the right lobe of the thyroid gland. There are mild atherosclerotic calcifications of thoracic aorta. There is no mediastinal or hilar lymphadenopathy. There is a 5.7 cm left renal cyst. There is old healed compression fracture of the L1 vertebral body. All CT scans at this facility use dose modulation, iterative reconstruction, and/or weight based dosing when appropriate to reduce radiation dose to as low as reasonably achievable. FINAL REPORT Dictated: 06/12/2021 2:48 pm Milad Marquze M.D. Signed (Electronic Signature): 06/12/2021 2:48 pm Signed by: Milad Marquez M.D. Transcribed by: BACILIO Technologist: [facility] Consent for Treatmenton 06-02 Consent for Treatment [id number]#1.0 0CD:127 [facility] Coding Summary.on 06-08-2021 Coding Summary. CD:[id number] Gh 0bWw+PGhlYWQ+XQ9GMNOxA 21owJQjkH1RO2qQMC4RIMR BYYAKUD0PJQ9brIV1CEvzD 2VybiAv JauadYGvYC66SZl8XYR6qF ugSJrazM9hpBFxX9a3EjQg KM94oT43GMduNVGmTaO6Sq ZpbjsgbWFy B6ngHwGbwDZwQsz+PHRhYm xlIHdpZHRoPScxMDAlJyBz gJgpFZ8gBi1pYHMeTAFkqN xhcHNlOiBj h6lbOCWkMUbzKM2qkJtnT8 ZmaOM4PIMju1u3Cd48cEK+ QLQsBZG9tXhdOKulj690Xt Aqo1zvKLZ9 cJVcUXaeWMH2E08oz8C2CH MxRGYvFSQ3iOP7jC0wrYsq qoskR7YfpYQnVpV4SWF0nF YzgP3ygDcy lumsbV8bJyy+H43CYW9DTB ZVBC5HQkh9F8ScZbvhaKO+ GU39LDBkOS62xMEmqYHhp8 vkcLw7CpQt GQKeBOY5zOlqGRtqs1BdYB JcW16sqWStp0L1PPFrsTbq iLAiPiWjhFD8gW9xEAsxlx kkr3isgpxg Pwghn8fwsr48eR12Z91gZE ykZLXxRAZ0ZVKqINLcgNci ht6wpI3bOe4+AOhlv9uoc6 vtiWh9OjOk FKZrxjRknUniGHW2f1YbUw 62T3MwoAxjl3ViBnm3vf31 pOBcn1O9kIF0IOtbPSRwyN 6sVAufIqY1 FMHmNzOqkH45wGDhIZvdLq 2vgSticVyjJE8xSFWctqrq RPDirD1xAWDyhWEixDsgUK 4wNTBpbjtm d638LcKqFHE7PNMcsOHqS0 ZwtP1dXiIqBVKgGEPcJ0Ul nCVoQQfgC159GYcjBvV3WW NurnItJ0Ff XCMklQmdKqG7a1O5Sn1Il7 WsbhixDOV4MIllGYSjJaL9 WgFuVpQ2V3VxJye9WVSeiV irVS8sF8Ur XYKbdmvfrrxfmKX6PENeGB EwhR48mZGkQFnmTg8ez7T6 v940WXRkAKPnuS84Oe8ahT ogMTBwdCBU kA9jgbsxm1liodzwJfHdGB XzKBo5UGx0UTSzcOzuOeDr XWW9UyN4WAU0yYCunG4tnR jgyvzxuF2e Oyc+R54bpF0kBPO6OWM0hr cxDIImnhFsUW12HE71C4Cx PjwvdGFibGU+PGRpdiBzdH niBM7iOzAb k1omg6OeHFolK2CjXDHeVA daJtn4LZYuDOJ7nEO2mZ8f RLXbWFrew1S9hBQ7D6Eqdj Ycgx3vt9ut TXChTEdyQ67cwBLhj2Q7YZ DdeEX6ZJMjrXavXeEffG94 Oyc+AKWgtJkmo5ShXpigq2 olz7xqnTd9 TnAyPHMcqtZnqWqmDAZ1f8 XuZc65W94cHZyrOGFaMKWz VIGbEOHtzAqkqm0tnQ3fHk 8+PGNvbCB3 cUN2lH6bJGKiGeJ5UPrxO1 66LxGgoEYvLtbct6lrv2ky mVw6WxJqJSPxeeSoeAroBN Y3b3OgFb38 F21qOOxoHNAzBQQnNVVySM OfbExldg9iuW1nLt8+PC9j o4setj23pG06jRA+PHRkIH C0hJdtLJnp HYYjoH9kZPtzUdI3ZPCkMn GwjI87sQCwGZodYn4phIwx bPvzHO2tZHSlmrgtp803Of Ymq0aoQKUn eVJnFFxxICM0R85ay4C0ZJ EhOCLhWXX1yML0tH9ndWve bjogbGVmdDsgdmVydGljYW krPVkkJ647 IHRvcDsnPlBhdGllbnQgTm NpICt8I5EiUhv3TURnuInp NF9ypWUmSTrzWv2jnCaeaN vbTN1lGXHn upyfc903KeNua1jrJLSkwY UyWLcgVWJ7X87vv9C6CFGu SKXnYQO5kRY7cL2omBlxox ogbGVmdDsg grXwbJuqWAqxWNdaS346KP RvcDsnPkJpcnRoIERhdGU6 RX80ZA45fLTqi5L4jRZ0L1 BhZGRpbmct yhauqXJ2ZFNuWGHymY08Gu 1qmUqgMc0wYNFtAQJ4XFEy uPYxN4DrxF3zTnPmKGYlRW NeI9WocOLw URrsI960HHmpMeG7XOAolf ZvQ0JyENQsiZfvRwK1h6X9 Ik8XZ9D8EL32QP05qDErg6 V0tCI6C0Zx NCNyfvzlbqyaoWQ3KOLkQD ZgnP91Kg0vsDsiQg4wDKCm ZYB6XODrsAEkB9YnbE5iFj AjMDAwMDAw C1VhpYAnFKjyF276GHiuZi H2LIMqdiRzI2RbRHPlbAtl ZvS4y2E4Eg8ZIEy5RY14EH 92dFHkz2B4 tDV0Q4PdIKBhoejennrvkU I9BMLaRIKznI48Sy0eiUhs Nt5wWJPoAYR3YOUfmKIqO4 PveT5pMjNj BBZmWPUeA0AqgVCdHKghI1 95ZLswBvN9IQMbqvJmK0Jr ARZsdCbhLsI6s9E6Oi1ZFU AbKG51VQK3 fWL2DG90HW90W8NjKrszhP FibGU+PHRhYmxlIHdpZHRo SBpxVUQsFnSlfJsfHO5hYv 9yZGVyLWNv vWdgrLAnUkLgu8clJOAuOF kxCY2dmSdqK3BvsXO5VNYi c0i5Sv75P25iV3SdyEN+PG GzwYW0sXM2 vU2dNaYjPhH9TOkjE242Sc TepFZyZnube3jmw7rjwJc2 ZbO8IDLrzePhaEwaTPS6g6 TxCy34E93a IHdpZHRoPSIxNSUiIHZhbG vdjm4qcM4bXk8+PGNvbCB3 nOA7kE9eFvOaJrO1XQduA0 49InRvcCIv Hllkm1yfe2zroBx7VrNqND DlxbHnkQhzQGW3v1WaDs72 G1MomSkue9WgKgv1lk32lO Kqs6K4xIP5 K8AbYJWfqrixpMWknAnvVH 2iORGdaihuPERtbK0eGHDt Y5w7NmCbZjN4TQhwY7Imoh C6KHWhdWKd DNvjOTW4Y27dj0H3ASJfHA SnRHK0uCF3zZ6juNwjgiyf bGVmdDsgdmVydGljYWwtYW tzC818FYZs fImmGRZotX0rGLAioKCdlO uhLN3sRSEerqucQtDRT7vu IFNISVJMRVkgQTwvdGQ+PH IiZML9jCul QBicYICutQ6kODRuL9c5Mn FmNwD7KRfyO4GrURGepeip Xm86nA4eMsUxUpV5VMfbY1 FzudS4EJAe uCWwNDkpHQR2O68np0L5JJ WhKIIsXUY3zUB4aY7rtKit bjogbGVmdDsgdmVydGljYW tcDBsqV179 YLQwyBqsLtPtAxY3VcL2PE R1V5EnImx9NFPplLguBH0l eEPaNZonXb7kzOqjuYcmCD 4wNTBpbjtw TLXwtM8bCHExgAKcgXmhBD 7bBFMqymfhx329TvBtLBB1 XGQyfQGvT3PviE0iQtJhRM OkRZHkM1Lj wEZvJJvlV949FMyhGgR8DT LqjxYoB0TjWMLdnYghVnF5 z1Y8Tr35SUQPBMDlfnrwwD Q+PHRkIHN0 kNteECuvTGDthY6lYTRnU2 x5AyJsVjR5AVlhW2RzLBQt jryhYt64oV5rDwZgIvC3LE oxX5PmuzX7 SYPggZLzDGbkZPG2O02nb2 K4GIPtVPGcVDI7jTL6qM7i bGlnbjogbGVmdDsgdmVydG ljYWwtYWxp O548BGIuoUrwPaQbnLRmUN wvdGQ+UMKiZIG7tKelUBvg QIAflP0aAHGiE8s3MnPmKc D2PFoiI1No XCXblconGi53rV5gFkRjFr Y2TVwfT0AnuwI5TYZjxTGw QRnfUZR9X30ng7Z0PKVnTA OgXFO5bMP5 vV0ayTwqcpjtoKBnjSfxfv XqtGonVPczFYkfU430RVJv cKanKd81wEWkcIjmxfD1Q9 RkPjwvdHI+ FE08DRHbXA35mKHigZZaz3 wfkSf1QrXpFWTrSSD0eXzy UDdew9HxBRTvB43vlSVqq4 H4WCJboVla rBJbBnOhkST8cH7bENfibv ffm6wcjibaZevfa8uwol01 dL22R95dJTksRUAwYBUzVX UiIHZhbGln oh6twC4cMw5+YWFjwEB1cM A0lP1iHxJgGvT6CZkpM356 XrBklAAkUkocd7uik0tiiZ d7WkWsOLSq ndSifYfdWRO3a1UmWc47N1 9sIHdpZHRoPSIyMCUiIHZh wLfdcs2ybM1cZu9+PC9jb2 nrfn17oW50 dHI+CWMaDPC1rQnrCAgeNV JqiO6cZVwkGrV7TVVdTrGi oY00zRPhIEobWr3bxBugrN xmSL5tLCRw mkiga717YnXbn3lvUJIjvU PcTTpfFEB8J53tp9J8RKUe APCfGMX7sCU3uA7mkEokal ogbGVmdDsg qkJyvGrbVRviYBupJ370PM SsiMbyXkWuyKHzB7hnwkHZ TE9bOmhzyJN+BYXmTGB2hR xlPSdwYWRk hL7zMEGnV0r5BaBhEbC4PN piD1AenqK2IMUolHTdOKMq wPRWwJ7mcoxvs1tjbtgeAe AwMDAwMDt0 RBz2GFSrdLawTnIzMAR0Vt M2PYF4yMPrsT7ynYrfxykc iG2aZij+RklOOjwvdGQ+PH BhVEC0bItr WLjtZMGwwI0tLOUmB7m9Gd AvCvX2CJwjS7SbhtQ0YYVe kGRkNGHbtLOMzI6hjywdt9 xvcjogIzAw ZTUxLZl2FHt6XDXbdFpwTw GjHGI5HlH2VLP0hKCbbX9c aUrbplbftI6sViz+TVJOOj wvdGQ+PHRk XGF8xPpfQCclHDRxnA6lDE KiQ6f6DsKfEdF0TYfhH3Dt ubX1GDTilUJxMJUzfEICxI 7wssoel2pd tqobQqAoFUMuBYo5GLw0CT NmuEwoHnJoQJJ4PvO6VSO6 nEGtiE7qdUrychytzR5aXt c+GCW1BBC6 EC48WK78Z7YyLgpbfDLiuP U+PHRhYmxlIHdpZHRoPScx FJKgYnXpsTmgMB3dOf8kZW VyLWNvbGxh cHNl (more content not included)... Normal [facility] Pre-Certification Formon Pre-Certification Form [id number]#1.0 0CD:127 [facility] Consent for Treatmenton 05-04 Consent for Treatment [id number]#1.0 0CD:127 [facility] Heart and Vascular Office/Cl inic Noteon 06-01-2021 Heart and Vascular Office/Clinic Note Chief Complaint Follow up PFT and Chest X-ray - ongoing cough History of Present Illness Since her last visit she underwent pulmonary function test which showed restrictive lung disease and reduced DLCO consistent with interstitial lung disease her chest x-ray has prominent interstitial markings suggestive of chronic lung disease. She does have chronic cough and sometimes paroxysmal she does have acid reflux and taking pantoprazole She does have mild dementia and sometimes she does get some cough while eating but no katherine aspiration Review of Systems ROS - Clinical Support Cardiopulmonary Symptoms: Cough, Shortness of breath Pain Symptoms: No 12 point system review was done and negative except what mentioned in HPI Physical Exam Vitals & Measurements HR: 65(Peripheral) RR: 20 BP: 178/81 SpO2: 100% HT: 170.0 cm HT: 170 cm WT: 80.7 kg WT: 80.7 kg BMI: 27.92 General: alert, no acute distress Skin: warm, dry Head: no trauma, normocephalic Neck: Trachea midline, no adenopathy, no tenderness Eye: normal conjunctiva, sclera clear ENMT: TM's clear, oral mucosa moist, no pharyngeal erythema or exudate Cardiovascular: regular rate and rhythm, normal peripheral perfusion Respiratory: Lungs CTA, respirations non labored Chest wall: no deformity. Gastrointestinal: soft, non distended, no tenderness, no guarding. Extremities: no deformity, no trauma Neurological: oriented LOC appropriate for age, CN II-XII intact, motor strength equal & normal bilaterally speech normal Psychiatric: cooperative, Assessment/Plan 1. ILD (interstitial lung disease) (J84.9: Interstitial pulmonary disease, unspecified) Her pulmonary function test are suggestive of interstitial lung disease her chronic insidious cough is also suggestive of interstitial lung disease, I will obtain CT chest to evaluate further. I will send serology for work-up for interstitial lung disease. The findings were discussed with her son. Regarding her cough I will start symptomatic treatment with Mucinex DM and Tessalon Perles and continue PPI for GERD. The chronic nature of the cough was discussed with the patient and her son. Will reevaluate after CT chest and labs Ordered: benzonatate, 100 mg = 1 cap(s), Oral, TID, PRN Cough and Congestion, X 14 day(s), # 42 cap(s), Refills(s) 1 dextromethorphan-guaif enesin, 1 tab(s), Oral, q12hr for 30 day(s), 60 tab(s), Refill(s) 1 AISHWARYA w/Reflex if POS Antineutrophil Cytoplasmic Antibody C-Reactive Protein CBC w/ Auto Diff CT Chest w/o Contrast Rheumatoid Factor Quantitative 2. Chronic GERD (K21.9: Gastro-esophageal reflux disease without esophagitis) Follow-up No qualifying data available Problem List/Past Medical History Ongoing No qualifying data Historical No qualifying data Medications ClonazePAM 0.5 mg Tab, 0.5 mg= 1 tab(s), Oral, TID docusate sodium 50 mg oral capsule, 50 mg= 1 cap(s), Oral, BID, PRN Lopressor 25 mg oral tablet, 25 mg= 1 tab(s), Oral, Daily magnesium oxide 400 mg Tab memantine 5 mg Tab, 5 mg= 1 tab(s), Oral, BID Mucinex DM 30 mg-600 mg Tab-ER, 1 tab(s), Oral, q12hr, 1 refills pantoprazole 40 mg Oral EC Tab, 40 mg= 1 tab(s), Oral, Daily Tessalon 100 mg Cap, 100 mg= 1 cap(s), Oral, TID, PRN, 1 refills venlafaxine 75 mg Cap-ER zinc acetate 25 mg oral capsule, 25 mg= 1 cap(s), Oral, TID Allergies Tape (Rash) ciprofloxacin (Muscle weakness) sulfa drugs (Hives) Normal [facility] Comment on above: Result Comment: Elec tronically Signed By: Kalpana ALDANA, Winston X\.br\Date and Time Signed: 06/01/21 17:29 EST Prescriptions/Work Noteson 0 06-01-2021 Prescriptions/Work Notes [id number]#1. 00CD:127 Normal [facility] Progress Note-Physicianon Progress Note-Physician [id number]#1. 00CD:127 Normal [facility] Pulmonary Function Studieson 04-20-2021 Pulmonary Function Studies PULMONARY FUNCTION TEST: 04/14/2021 REFERRING PHYSICIAN: Whitney Goodman M.D., and Winston Acuna M.D. REASON FOR TESTING: This is a 80-year-old female former smoker, and pulmonary function test is performed to evaluate for chronic cough. The patient had difficulty performing the tests, and best results are reported. Spirometry results show reduced FEV1 at 65% predicted, reduced forced vital capacity at 63% predicted. FEV1/forced vital capacity ratio is normal at 78%. After administration of bronchodilators there is no significant response to bronchodilators except in small airways. Lung volume testing shows reduced total lung capacity at 77% predicted. Residual volume is normal at 114% predicted. The lung diffusion capacity is reduced at 50% predicted, and with correction to alveolar volume it improves to 77% predicted. IMPRESSION: Spirometry and lung volume testing show moderate restrictive lung disease. There is no significant response to bronchodilators. The lung diffusion capacity is reduced. Clinical and radiographic correlation are recommended. READ BY: Sheeba Barksdale Dictated: 04/18/2021 [id number] Transcribed: 04/19/2021 cc:Whitney Goodman M.D. [facility] Comment on above: Result Comment: Elec tronically Signed By: Kalpana ALDANA, Winston X\.br\Date and Time Signed: 04/20/21 12:13 EST Coding Summary.on 04-19-2021 Coding Summary. CD:[id number] Gh 0bWw+PGhlYWQ+PC1WRQUvH 37lyFVrnA9RT4nQDS1TBFL FTJPXKR0SXG5ftJG6LUyvF 2VybiAv BefgjYKdQI11EZr8ZTP3tJ gyUXgjiK2usLDsP5h3GwBj DG51zN80BCloQFXeJhS8Jq ZpbjsgbWFy L3wbWvVxhHZyKvp+PHRhYm xlIHdpZHRoPScxMDAlJyBz vJkmYY9wYj3eXRUcCRVwqI xhcHNlOiBj x5abSXXoBMjtIC2odDpvS8 PfqFG2VYOos4j8Pf89aAC+ HTXyMBG8eJplSGegc854Gw Cnu6sqWIR0 uIQiNMjhTCL2F34sx9R4SI AcRTIpDJR4uIM7mP7arBix azbgD5NsfRYyNiW4EFI3wI VgsE9vtDzj yotwoU2sTqh+D02LEQ2GOF DCQU6WHpv4S5WbWxmcjXL+ KI65RNTvVQ78cOMiyTKjn2 vmuYt6RaVm KYAbZVB3lGqeDCtlh2DmIM HdL22wwOYbq1G5IWQqdKfx uPFfWuJvpRK9fX1lMComza nmk9pktrqh Mvlta1lyno08uM55E23zRA dmAIUxKIL4HHWfDSYigMow ei7duM1dAx7+LPqjb6qoe1 lhmEn8YeVw FPOnlqPhvShdAFV5f5PrPi 50X7DijKkde6DyMwz9rb18 zIVlg9E6yTL6IYrcIZJbhW 6jKUvsFqQ2 CAMoXvZffP26lPSwZEpgSy 5eaGdaiXwyXS6tZSQudzgp NRPsbJ2bPEWrvCSlzRnsKW 4wNTBpbjtm z915JhWfRFY4KRXygPJkP9 NguE3nNgTgQICkLJOzC5Ox oMWvCOavQ116XTblAlO7PI WxlwQtC7Ua PNZpjBwgSiU1l9P0Ul0Jk6 QenyqqVWR6WDwoAFJfPrT9 YvAcXwU6Z9EtLax8SVTroV urLB9qG9Is SQJslemhjafebRO9XQOgGD TssA17aRLeDNcvZn9zs4P1 r015SWWcFXRxqD73Bl2wxI ogMTBwdCBU fP7rnjeyt6koxvmzFcCtBV DePIp3KPx5ICBhgSgeUxEh CWN9ObN1UKU2iHGlkH4whU pxksdseA5m Oyc+F01thC9cDIC3ARP8va ufHOSzeyMhOJ51HM03L9Ql PjwvdGFibGU+PGRpdiBzdH rkZF3aSvBk g1caj4GgYJexF0IiRKCbZO jgMsu0VDCtONY6rWS3bT4j UJNoVHjvy9U5wXV2M1Bfnb Iyby3xw9vr EOJyRYevA17xlDGey2A1NE QflDX9WORsrEqbXdLawE16 Oyc+MJHkiRlxe4BbBlicy8 xmq9udsFw2 SfLdOBWpkbUojPxyAWP0b4 JdDs50D37eLIlnWUVtGSQh BYMkIZPfpFsrwt5okO8mBh 8+PGNvbCB3 vDU8dP8yGRQaHtD3JAppN7 18LqUaxIDyRkzrc7zuw1hk tPc8HnSqUCRjdiBjxPlhKF C0e1NqUn01 I85lYMdxKHGuCQImXBYfEF VdhKspfx4haQ7lZb5+PC9j l4rgqu72iF43eDI+PHRkIH K9kGntKWuo DMEaaU2fYHcxOoY4VYKbSm AnzA33mOMjDEtgFn1lvNji eKqpXM3lRTOhysmoo693Zc Wve8mgHZWj bJOmJHmqSWX6A76be0V5DR NtWZOoSNF2tLA2bQ8ohNez bjogbGVmdDsgdmVydGljYW pcOChdL552 IHRvcDsnPlBhdGllbnQgTm MkUIs4B7RrHsc8QDLpnSts TB1nhQVuWOgdAj0qtLipfR yrME9sAEHk yqyrb802MvKnz7rrETLfhU CiGTapAZQ6Q19ty2Y3GETw WKKqRVS9jYM7vX1rbJzibn ogbGVmdDsg mnSptMtvSZtoSPfaL198HU RvcDsnPkJpcnRoIERhdGU6 QF10LZ60kEApg6P4iBA4O5 BhZGRpbmct tlntgWQ3FKGbVKHzcI58Vp 6zqOiyLg9yDBOiHWZ8GAMs qWGdK0YioZ8nBjJlXDHqVY NlB7FgkRIu ILpxL989VYliUqK1ZCVvlw SwI1DoWDWnwGflIuN3n1G6 Nu6VC9X0OA10UD87yKGqz2 R9yFY0K0Qg LSJwvadfjsesyKZ2STKyBA UjrL97Bp4wcFaqPa1dMCUa LJC2TYLsnFQoJ1HxrS6jPt AjMDAwMDAw V2TyxFXgQIymL347QZiwIm C2WELikpAxV5ZbSLTnpRxr KhG0w1D4Yo2UCDb6QL38LG 75yJHev8Y0 wHK0G9VnGYRwsbshjfppxH W8NPYfWHPlgR21Zp6ioNwu Jz8cABHsTPA3HDDxmHEmF5 TjkU7xEnKf WAEfXVLrV6NugZEwRSwgH2 49UYakPnS3XCDnsoRcY0Vv KIGwwWtjCyO0j8R8Vj4ILR OiBS72TGO8 iMQ3NE58YZ98D8QoNsuzuP FibGU+PHRhYmxlIHdpZHRo IEgnNPNmHvLaxWvnYF7eLe 9yZGVyLWNv iErkiCGzLoFbg0acMHNhJG fzAB1akSyqG1ZgdBV0NHLv g0y6Bn63W58yL4HepGL+PG EcrMW7gWI3 fH3sKsUmYoJ6RDtzH622Ck BowDZmYwkmc4xki6xqrVg6 AjJ1WVBbuxJuuCyfMXV9o2 MnEr44B14r IHdpZHRoPSIxNSUiIHZhbG otic4aiK8cTs2+PGNvbCB3 dYD6kN9cQzFgFuC8HHfwA4 49InRvcCIv Yipqo6uro2sayCo0InCmHO MslnXdlXwpJIP4k4OeAh10 V4UixZwqx7CzIms5hp87pX Ttv3I8nXF5 J8ZmZKMfjmzhfCGgmSljER 2gJCSulrtaNCEoaH2nFZMk E9u1WpAfGjP4FIcoU7Nuux N0QDXkcALd UYcoYXS6M79gz4Y7DZOyDJ XbFZH4gBR1oD0wsUtecovi bGVmdDsgdmVydGljYWwtYW cvW524WKCt mApzVZFzkP2nJVCjhDZzhD hzZZ8kJESibdatLyCKE9cr IFNISVJMRVkgQTwvdGQ+PH CxSDK9gDzx PKyvVAXttQ6cBOFtG5y7Ed DcZoA1HTkgH1MnJJMgutgt Rc61bZ2oVbIcHuN0YWrrP3 BgjsF2KUJn dURiPQabEPV9U63yz0T8NF RoBZDuXKA9vXM6cV8ceAsh bjogbGVmdDsgdmVydGljYW bfRJsqQ697 BZIahIgsBvPuXqX2KpU9EB W3Q5GeXrz9NMIsnObaBV1e dTNdDYroCt0xrMreqOhfXC 4wNTBpbjtw CQQwjU6oLRQodWDqzKnnDS 7jFWVpwbdoo492UlDmWDV0 DQHtrEOeL2PtjI3iLoPhAJ EcQYQsS9Db cLSlBItxL532FDiaIzA9VT OemdTwG7MdNFQnfEfkLhO3 q4B0Gd21UKNJSYFytbtjsY Q+PHRkIHN0 bFxdAJexAJMbxN7vVBBiL9 t6TrFbUrW4HVntZ3AsAEQs bprbDm66yB4nZfNhWfJ3GC isA0AixmO9 FWTriZEbIGwuCNF6Z32nz8 P8WWHrHYJdXKG7wSI2qS2r bGlnbjogbGVmdDsgdmVydG ljYWwtYWxp I271XPGkfPkwVxJpxQAsLK wvdGQ+LGXtAZJ2vOeyLNrp BIOsmZ6hXKFfB5v2CxSvLn P2TBceI1Gy SUDdbozyHc53mJ0vWrVmMo R1QYliM8PnrfL7GFJgzLGk JFzjTAM1Z86jy2Z1QOMbVC PqDTZ2zKF0 dL2xsGabpohavDKcvEgfqo GkfQqkKMjkLCoqT273BQQm kMkqFp48iOCzbObzrpY2C6 RkPjwvdHI+ ZC83CFJqZW65xTKupOZip1 psxRr9HdSvNEIyTTQ4dGdn YYpow3FlVFUfU07fyPHfv4 U9TFZtcLuo pFGwEwRagTJ2zY3hYRsvho lmu1xpieiqGwszn9xeug72 uC36C87bISwdCHHjDSLzKP UiIHZhbGln kz8hdG8rVe7+ROSikGO1tM V0fZ5fQoEsIdK1UArzG006 AvVffJMpIblku2eqo1duqP u2SuBfMQBx yrNcrNgwHTK0e7PwXc27H3 9sIHdpZHRoPSIyMCUiIHZh uSqvrh1ugE8rIy6+PC9jb2 wvle92jP17 dHI+IYUqUXV1qEcqNNquUY NntD0pHUgfNkA9QZZcHzFf oL19rXGhUAnkPr5zkJflfY dqWD9yTDHk hdgdn947MtPjp5efDAUzxP TnYXrwLXR9U64yv9H7VUIx BCMbRTJ4lVU8qX9chCibzt ogbGVmdDsg vsTbeSarBZejVTucK410QT QyuSucStYltPLvN9noylHF OQ8lXtopmGN+PMGuDOU8kQ xlPSdwYWRk tR2uQWXgE6g3QxEyFyZ3SD idI7TlomF9YBRbqLQdMAQm eLDQgT6pzkufb7bdcyzyMp AwMDAwMDt0 TEr5NEQhfQhtKuPaXCA3Lr D7AVR9rBMzoP6qyLasihxt qR3jFos+RklOOjwvdGQ+PH PvGCH1zZgx DNwnCDVklE1uTQXfX3j9Sg NpHhC6RIpbR5CgwfJ4OHLf nHDuYGHmhNLQzP4brcadz9 xvcjogIzAw YHItJHc4DJo1XPOhiTvdWr LlNDE8JlB7DHK8yXAjyD1n bDbuysanzK3eJaq+TVJOOj wvdGQ+PHRk BSS7iZauHEgxXQXnlA6aRN PmH1n4UwXjNzS9IWvcV7Hx qiD4UYZmnZKdYFNpyGZYoH 3jlexgm0er arkjHzCzWBHeBOg8GCl3DQ PymKlaFuEfMLK9XyL2AJP1 lKCcnX9pvEnuwxnvyR5oIi c+PXZ9ASH6 NO95UE34N9WcEztifIGocO U+PHRhYmxlIHdpZHRoPScx DFXfAdFsrKcmDC6eEh0uFW VyLWNvbGxh cHNl (more content not included)... Normal [facility] Coding Summary.on 04-15-2021 Coding Summary. CD:[id number]:[id number] Gh 0bWw+PGhlYWQ+TB5WJPLyD 73cwOCbtR9NQ8kNIJ1BLEH HWDCTHL4HYF6prZR2AOkdS 2VybiAv SdiktRWgRZ14JVa3RDG6rE oaBEiqoH5khRGcX8d1SxOi UD27kR59QLfyYSTpZmB6Cg ZpbjsgbWFy P6weInTcjCCeKwy+PHRhYm xlIHdpZHRoPScxMDAlJyBz dZwrGI8hIx4dHCNzGMMkrH xhcHNlOiBj b9qhCQLwARahQJ3wbAzkY7 EgjIB4WXKoe9n7Rv08dCO+ EUXoLEN0lZwvYGhpe891Nd Dun8fqTBD6 vSEwROkrPHD4M97lv2Z2NI VqIPTwJQP5bWU0jL8isBli kdqyS4JhoNXvIuW4QLG8bM XtnH2ewIot xsxjyR5sBcm+M73DOF9XKP GYUR2EVyy2Q0XlSuhwaDD+ ZA52SGCqLP33cBPfvOTux1 vebDb9XoFq RMUyQXF8wQsxCZcoh3MlOU LlU67mdKHmn6V0JQYphXmb bHTtZwIqpSR6vN2sFXrzam tln9qvgpkl Lhaah6hmlv63tC97R60jHM ngWLGvMCC0XSTvXYBsvNiv ms1smJ8rVa6+GSepq9foo6 rzgIz2JmIu XWUljaDmvWydHHF8p0FiSy 51Y5JzqIfxu4KlTqw6mn03 lIXeh4F1fCS1TOkuVQNejW 7fKKygKuZ3 YZBuWgYpaC84xDRpNIrjNu 5qzRyrnCngBH8fJSJpjpka TWZuvN5hBTTpaNOtaGsmWQ 4wNTBpbjtm h974XoAfFQS6SVStoSWfN4 SzrL3tFuBjSVHoDWLjO4Sn yVDvGTvhC309BQvmKtH7WU QzjcIbU8Tc TPYhwHqqXwZ6l8W6Lj8Xa2 RlaounLKC6VCwfCQFzKuD2 AfFfXhE3M7AtWed5AHZivN drWO7iJ4Ao ZSDsoueactinfHL6YKQfKQ YgxB57xFBnPQhaZz2vc2Y3 w555DBXsINBbdY19Xg4ijZ ogMTBwdCBU vX1ijchnp1bdkoeyXiNhVJ EbCDs0RKk9AJAidZusTpCo RQN0SlH7QUB4mCZgzE4krP vqtygcbT7o Oyc+E73bjG2uAXS8GXM1hs ugMGUekfVcJQ89HW40J1Wg PjwvdGFibGU+PGRpdiBzdH qiUN5fUaRv a6wfg3IkRFuvM4FoQJGnIA rcBrv3CDQeDOB2vAC8oR9w ZASqFWyxc6D8kHP5B6Egbu Mqlx4de4we WXXaPKrxS74qoONdr4L9PT ZgtRX8FKIpcHetAoItlP76 Oyc+IQLilMljb4CtTvvdk0 mdm5zltAw1 IjYdJMLhtwLnkDqhQQK0g5 XcSc46O86mYAjvFGYdCESn JUSqMMVimUnhnj4diY6hSn 8+PGNvbCB3 cZB2uE5pIBHkFjZ8RUvoU6 07SdIrrUPuVnddw2ljm0ow sBi6DjMuYSNylqHkvLgpWA N7g7RwAy70 D14nCWroYPAmBADmVATnVJ AmmJtekj5khM2wDb9+PC9j z4rvsk09oO52pTD+PHRkIH K0cNwwVExd NXKixW5lXEysPgS1GYRcTo EawR35uYRfQZuhIq7mzXva zNmyUD5uZWYlktlxa993Ys Mzm5jyWVRc sFQfWGqwIIK3D24fq0S5AL ZdNGNdRSO5rPH9yG1uaUwr bjogbGVmdDsgdmVydGljYW miTJriT188 IHRvcDsnPlBhdGllbnQgTm ZyUWp7L8IjIxy6PMVivOxp QR6neZKyVAmaYi8idHlxuD esWR2bMIMr wdwuk736MuIqw2agRWSzpM SmQCbcBGJ9G62hg1G7MDZt QALqYHD0nXP1iZ6mkDwaxh ogbGVmdDsg yhPmgPorPXkeLDfoR476BQ RvcDsnPkJpcnRoIERhdGU6 EN19AG67jROtg4Q0gNU9T0 BhZGRpbmct wvhkyNL5REJlHXRrqB61Vk 8kvGcbPe9sIKJeMYG2BOPp bSXdJ5TzrI5dAbDqZLVbKH OlA3BgnQOl TUhpU897WJigMdZ2KBBdtf MrO5TbUDVfzOawBsS3c2E9 Gp3UU3Y3YP01MG27rDAhu0 O0qEF0C9Uq EYGrclhomaydfGH5BSKjLT HemQ92Zb9xuLwbXq4fUTTu YHI7IEVhlSMlI2GjzX8sJw AjMDAwMDAw M5SdeXGaEHnvC207OXcjZq A5KWOnhjLhL5EeVYUcvAcr TeA7f7N0Rd4YVGa2BU19UA 36tQKdh0B9 wKO5X3VcYURygtbarqeytI F5PUJsCXEseQ80Gh8twBjb Wy7zPEFgZDW9WGMzuIRpA0 FvdR1gJfOy PJHgAMSfF8YbdPFeKSiuP0 59BBotHfW5XWJtxeUrS9Wg RFRhvIruOdI9s0I6Ze3HYC FlVH53WEJ5 dFB2GH15YA13H9LxWqkkdV FibGU+PHRhYmxlIHdpZHRo NEodFFBbNmBchFedAB5tZk 9yZGVyLWNv yMlgtTCjDnGzn6fwVULpRS qnLH2fyXfvS8IzkQS8LBTp x0k2Yl59N45wQ0DafWN+PG LodGB8dUF0 iJ8uUlAjGnN1DByjO765Oy CskBPrNhgte5esk0urdLm6 ByQ5PQPjmxUjoEhhSWJ3h6 VsNc05M19v IHdpZHRoPSIxNSUiIHZhbG miya9kaB5iZp0+PGNvbCB3 uWO2uK3jQdIfXxD5VXshN8 49InRvcCIv Aszve4usv1jymDz0CvFfAP YawxDllChbFZD6o0MlTr43 A3ShvBvme7HjCko1sn55bU Ojb8Z8tGW2 C8TlLFDdojarrCFjbHjgMW 1tZTZkzychGHIjqV8lXVKw X4v9IaIzLwA4WMplO9Gwev V1WBWavGAa JUceWVR5X18pj9J3QCMeVN WlWFJ7cKU7zM2clNnbtynk bGVmdDsgdmVydGljYWwtYW xyO284GUHn qHftTJDieF5tITHmrNZnwK nqLZ4xMMSkubdbUwHBH7xm IFNISVJMRVkgQTwvdGQ+PH ApUBJ3gEon XOgjPBXngP4kTAXlC9v8Dl EwAgQ9LWhmY8DxWYAksifb Li46lH6wKzXvReA4AArpE7 JaqaR4FQXd eHUrXRkmLXW4P94ez3C9DE HgIMTfRTZ0bDW9oU2udTbb bjogbGVmdDsgdmVydGljYW ccIStrT998 GFByeHmnCcQfKwP8GsD6VF A3B2JpMkz0MLMbnSsvHU8q iUKxUTnyXs0ywDdsgFleBH 4wNTBpbjtw TJQwgX4fAWSnvABgfOvuLI 5tJAQtuwbfo367ZpReXQP7 JLBodULtD0XxxB2oDoSqJI HnLKLyV3Pi mTAlIOhhG316IVkaVrF0ZZ PxqiVlO6BsDSEsyOjiDdZ6 v0F6Tz54OONGOGMsynpqdG Q+PHRkIHN0 qElgSTxyPYEjaY0jBTPgK3 h7VpKlSmM0SRiaG0InWUNe oggcDw15rE5sPvLkZrZ0LX wdK1NxofQ4 WNNlnEFlPGalVBV2S49vp9 Z5KSOeFFTwSUY1gBC4iG6e bGlnbjogbGVmdDsgdmVydG ljYWwtYWxp R063BKRmsJuwHnPmtETgUI wvdGQ+WBTsAKI6gFrpAHpu EEHowV5qJXKhD4a8TwPuJi F5XOolZ9Mo TWJldbaiBg73eI8bGiXpDf E4ADkuC9QidiK2GJGskVQx ATdwAQC2X37yd8K1SGLmIM MtGYY9kOB0 oM1wyJngrjlplZKipDladw YiwLvhXWuiSTanM835KZMb kGchIl23tJWaeGylerO8B5 RkPjwvdHI+ BS03DYAtHL59eIIiaQTky1 yhvIi6LqAgUXRmERW7gRqs KBofc4ExAPEyQ68krVFwt9 K2MRWxnAis jNYhOqOpuLR8bT6vWQmtvr uvl0tamlfvCyhic2mgpc49 cS97P39aQTxxKQHfWHPzMH UiIHZhbGln qp4jeL0oKa6+ZFFhgEW9iM K0rI8bYoTrDoZ0SMqhU867 OwXwpRYrXialo8jkr8ynvJ x2PwCuBWDq cpKnzQqlVPJ1h4ExEe19F2 9sIHdpZHRoPSIyMCUiIHZh uNtnmy5ozP1jXr0+PC9jb2 aian36rH77 dHI+HOHtGQJ0oXfsMMlxDP AriA0vXZssMjN7PKGeZeNm tX44vWZvIOonDb2udQpwdF imHO1sZKTp nnafs141ZqIbd7tsBQImdT HoAFlaLCA8N16cc8Z6NPHc HCOhGXC4wSV4dA9rmPzkxj ogbGVmdDsg gvEspPpiZNrpHNlwM170PY HljTteGjYhhIPmF6yazzGF XM1kAsrcdOG+ZKRsEGQ8vK xlPSdwYWRk sE5mYNLmS3j0IpIiYjZ6EH dqP0AwkoQ1EFEhsJYzUPZp wGLIyJ0bxvgit5spvffxLy AwMDAwMDt0 CWj0VJLntFqgViItUXG2Ra G0LNP5pQXljW0kjAcdbizy fG4zWyo+RklOOjwvdGQ+PH MaMSW0eSru OJemMBEgsZ1sXEXbJ3y7Zl RcDoM6PSvzQ6GfyoS2PAEa bLVdHOCweJHDgJ4vfwjlt9 xvcjogIzAw VDCqLKc0CUg8ARVbxQbkOn VdAXX0BnZ9QXB2uMFxcR8d nEjkixggmN5bHfd+TVJOOj wvdGQ+PHRk CIQ9nJlbCKlqUZPjrW9yVO WsG1v2ThWsPqT6VSahU3Dc vyM1LRJxbBWvXYKxiPEZuE 9xggtse4cy cgmkKtYqWRJqCSr4DIj3AP KqsXaaNfFdGYW3JxR8IPD3 gZHodU5njJvacqaadH0kZt c+VSM9BGV7 ZC39BJ79S3WqFwjbpDLfoW U+PHRhYmxlIHdpZHRoPScx TKYsZfUjgHstUX1cCc3nVF VyLWNvbGxh cHNl (more content not included)... Normal [facility] XR Chest 2 Viewson XR Chest 2 Views Exam Date/Time: 04/14/2021 15:18 EST Reason for Exam: Chronic cough;Cough Report IMPRESSION: FINDINGS CONSISTENT WITH CHRONIC LUNG DISEASE. NO EVIDENCE OF ACUTE CHEST DISEASE. CLINICAL HISTORY: Cough, Chronic cough. Shortness breath. Chest pain. COMMENT: The heart is normal in size. The mediastinum is unremarkable. The lungs appear hyperinflated. There is mild pleural thickening at both lung apices. There are slightly accentuated lung markings bilaterally. No consolidated air space opacification nor pleural effusion is evident. FINAL REPORT Dictated: 04/15/2021 1:05 pm Gino Sanchez M.D. Signed (Electronic Signature): 04/15/2021 1:05 pm Signed by: Gino Sanchez M.D. Transcribed by: BACILIO Technologist: GAYE Normal [facility] Consent for Treatmenton 04-01 Consent for Treatment [id number]#1.0 0CD:127 Normal [facility] Pulmonary Function Testson 06-15-2020 Pulmonary Function Tests [id number]#1. 00CD:127 Normal [facility] Consent for Treatmenton Consent for Treatment [id number]#1.0 0CD:127 Normal [facility] Progress Note-Physicianon Progress Note-Physician [id number]#1. 00CD:127 Normal [facility] MRI BRAIN WO CONTRASTon 09-30 MRI BRAIN WO CONTRAST EXAM: MRI of the brain without contrast History: Cerebrovascular accident. Memory problem. Parkinson's disease. Technique: Multiplanar multisequence MRI of the brain was performed without contrast. Comparison: None available Findings: Nonspecific white matter signal abnormality within the supratentorial white matter and patchy hyperintense T2/FLAIR signal within the anyi are nonspecific but most compatible with chronic small vessel ischemic changes in a patient of this age. Prominence of the sulci and ventricles compatible with mild generalized parenchymal volume loss. No acute hemorrhage, mass, mass effect, midline shift, or abnormal extra-axial fluid collection. Cerebellum appears normal. There is no diffusion restriction. Two roughly 4 mm foci of susceptibility artifact within the left thalamus, a roughly 4 mm focus of susceptibility artifact within the right thalamus, a punctate focus of susceptibility artifact within the right temporal lobe, and a 3 mm focus of subtly artifact within the left temporal lobe are nonspecific but most likely represents sequela of prior microhemorrhages. The major intracranial vascular flow voids are maintained. Cranial nerves 7/8 complexes appear grossly unremarkable. The visualized paranasal sinuses and bilateral mastoid air cells are clear. IMPRESSION: No acute ischemia or acute intracranial process. Generalized parenchymal volume loss and nonspecific white matter findings most compatible with chronic small vessel ischemic changes in a patient of this age. Nonspecific supratentorial signal abnormality most likely due to sequela of prior remote microhemorrhages. Interpreted by: Bao Larson DO Signed by: Bao Larson DO 10/17/20 CC Recipients: Rigoberto Molina MD - In Basket (authorizing provider) Final result Normal [facility] MRI BRAIN WO CONTRASTOrdered By: Rigoberto Molina on 10-17-2020 No acute ischemia or acute intracranial process. Generalized parenchymal volume loss and nonspecific white matter findings most compatible with chronic small vessel ischemic changes in a patient of this age. Nonspecific supratentorial signal abnormality most likely due to sequela of prior remote microhemorrhages. [employer] Phone: EXAM: MRI of the bra in without contrast History: Cerebrovascular accident. Memory problem. Parkinson's disease. Technique: Multiplanar multisequence MRI of the brain was performed without contrast. Comparison: None available Findings: Nonspecific white matter signal abnormality within the supratentorial white matter and patchy hyperintense T2/FLAIR signal within the anyi are nonspecific but most compatible with chronic small vessel ischemic changes in a patient of this age. Prominence of the sulci and ventricles compatible with mild generalized parenchymal volume loss. No acute hemorrhage, mass, mass effect, midline shift, or abnormal extra-axial fluid collection. Cerebellum appears normal. There is no diffusion restriction. Two roughly 4 mm foci of susceptibility artifact within the left thalamus, a roughly 4 mm focus of susceptibility artifact within the right thalamus, a punctate focus of susceptibility artifact within the right temporal lobe, and a 3 mm focus of subtly artifact within the left temporal lobe are nonspecific but most likely represents sequela of prior microhemorrhages. The major intracranial vascular flow voids are maintained. Cranial nerves 7/8 complexes appear grossly unremarkable. The visualized paranasal sinuses and bilateral mastoid air cells are clear. [employer] Phone: Agustin, po Incoming Radiant Results From [employer] - 10/17/2020 5:53 PM EDT EXAM: MRI of the brain without contrast History: Cerebrovascular accident. Memory problem. Parkinson's disease. Technique: Multiplanar multisequence MRI of the brain was performed without contrast. Comparison: None available Findings: Nonspecific white matter signal abnormality within the supratentorial white matter and patchy hyperintense T2/FLAIR signal within the anyi are nonspecific but most compatible with chronic small vessel ischemic changes in a patient of this age. Prominence of the sulci and ventricles compatible with mild generalized parenchymal volume loss. No acute hemorrhage, mass, mass effect, midline shift, or abnormal extra-axial fluid collection. Cerebellum appears normal. There is no diffusion restriction. Two roughly 4 mm foci of susceptibility artifact within the left thalamus, a roughly 4 mm focus of susceptibility artifact within the right thalamus, a punctate focus of susceptibility artifact within the right temporal lobe, and a 3 mm focus of subtly artifact within the left temporal lobe are nonspecific but most likely represents sequela of prior microhemorrhages. The major intracranial vascular flow voids are maintained. Cranial nerves 7/8 complexes appear grossly unremarkable. The visualized paranasal sinuses and bilateral mastoid air cells are clear. IMPRESSION: No acute ischemia or acute intracranial process. Generalized parenchymal volume loss and nonspecific white matter findings most compatible with chronic small vessel ischemic changes in a patient of this age. Nonspecific supratentorial signal abnormality most likely due to sequela of prior remote microhemorrhages. [facility] Phone: [facility] Phone: Hemoglobin A1con 10-10-2020 HbA1c (Bld) [Mass fraction] 5.1 % Normal 4.8-5.9 [facility] Comment on above: Performed By: #### A 1C #### [facility] [address] [place] [address] CBC With Platelet and Differ entialon 10-09-2020 Basophils (Bld) [#/Vol] 0.0 10*3/uL Normal 0.0-0.2 [facility] Comment on above: Performed By: #### C BCWD #### [facility] [address] [place] [address] Basophils/100 WBC (Bld) 0.1 % Normal [facility] Comment on above: Performed By: #### C BCWD #### [facility] [address] [place] [address] Eosinophils (Bld) [#/Vol] 0.1 10*3/uL Normal 0.0-0.7 [facility] Comment on above: Performed By: #### C BCWD #### [facility] [address] [place] [address] Eosinophils/100 WBC (Bld) 0.7 % Normal [facility] Comment on above: Performed By: #### C BCWD #### [facility] [address] [place] [address] Erythrocyte distribution width (RBC) [Ratio] 13.0 % Normal 11.5-14.5 [facility] Comment on above: Performed By: #### C BCWD #### [facility] [address] [place] [address] Hematocrit (Bld) [Volume fraction] 34.8 % Low 37.0-47.0 [facility] Comment on above: Performed By: #### C BCWD #### [facility] [address] [place] [address] Hemoglobin (Bld) [Mass/Vol] 11.6 g/dL Low 12.0-16.0 [facility] Comment on above: Performed By: #### C BCWD #### [facility] [address] [place] [address] Lymphocytes (Bld) [#/Vol] 1.2 10*3/uL Normal 1.0-4.8 [facility] Comment on above: Performed By: #### C BCWD #### [facility] [address] [place] [address] Lymphocytes/100 WBC (Bld) 13.0 % Normal [facility] Comment on above: Performed By: #### C BCWD #### [facility] [address] [place] [address] MCH (RBC) [Entitic mass] 30.8 pg Normal 27.0-31.3 [facility] Comment on above: Performed By: #### C BCWD #### [facility] [address] [place] [address] MCHC 33.3 % Normal 33.0-37.0 [facility] Comment on above: Performed By: #### C BCWD #### [facility] [address] [place] [address] MCV (RBC) [Entitic vol] 92.5 fL Normal 82.0-100.0 [facility] Comment on above: Performed By: #### C BCWD #### [facility] [address] [place] [address] Monocytes (Bld) [#/Vol] 0.7 10*3/uL Normal 0.2-0.8 [facility] Comment on above: Performed By: #### C BCWD #### [facility] [address] [place] [address] Monocytes/100 WBC (Bld) 7.7 % Normal [facility] Comment on above: Performed By: #### C BCWD #### [facility] [address] [place] [address] Neutrophils (Bld) [#/Vol] 7.1 10*3/uL Critically high 1.4-6.5 [facility] Comment on above: Performed By: #### C BCWD #### [facility] [address] [place] [address] Neutrophils/100 WBC (Bld) 78.5 % Normal [facility] Comment on above: Performed By: #### C BCWD #### [facility] [address] [place] [address] Platelets (Bld) [#/Vol] 275 10*3/uL Normal 130-400 [facility] Comment on above: Performed By: #### C BCWD #### [facility] [address] [place] [address] RBC (Bld) [#/Vol] 3.76 10*6/uL Low 4.20-5.40 [facility] Comment on above: Performed By: #### C BCWD #### [facility] [address] [place] [address] WBC (Bld) [#/Vol] 9.1 10*3/uL Normal 4.8-10.8 [facility] Comment on above: Performed By: #### C BCWD #### [facility] [address] [place] [address] Comprehensive Metabolic Pane ke 10-09-2020 Albumin [Mass/Vol] 4.1 g/dL Normal 3.5-4.6 [facility] Comment on above: Performed By: #### C MP #### [facility] [address] [place] [address] ALP [Catalytic activity/Vol] 65 U/L Normal 40-130 [facility] Comment on above: Performed By: #### C MP #### [facility] [address] [place] [address] ALT [Catalytic activity/Vol] U/L Normal 0-33 [facility] Comment on above: Performed By: #### C MP #### [facility] [address] [place] [address] Anion gap [Moles/Vol] 14 mmol/L Normal 9-15 [facility] Comment on above: Performed By: #### C MP #### [facility] [address] [place] [address] AST [Catalytic activity/Vol] 17 U/L Normal 0-35 [facility] Comment on above: Performed By: #### C MP #### [facility] [address] [place] [address] Bilirubin [Mass/Vol] 0.4 mg/dL Normal 0.2-0.7 [facility] Comment on above: Performed By: #### C MP #### [facility] [address] [place] [address] Calcium [Mass/Vol] 9.7 mg/dL Normal 8.5-9.9 [facility] Comment on above: Performed By: #### C MP #### [facility] [address] [place] [address] Chloride [Moles/Vol] 100 mmol/L Normal 95-107 [facility] Comment on above: Performed By: #### C MP #### [facility] [address] [place] [address] CO2 [Moles/Vol] 25 mmol/L Normal 20-31 [facility] Comment on above: Performed By: #### C MP #### [facility] [address] [place] [address] Creatinine [Mass/Vol] 0.81 mg/dL Normal 0.50-0.90 [facility] Comment on above: Performed By: #### C MP #### [facility] [address] [place] [address] GFR >60.0 Normal >60 [facility] Comment on above: Result Comment: >60 mL/min/1.73m2 EGFR, calc. for ages 18 and older using the MDRD formula (not corrected for weight), is valid for stable renal function. Performed By: #### C MP #### [facility] [address] [place] [address] GFR/1.73 sq M.predicted among blacks MDRD (S/P/Bld) [Vol rate/Area] mL/min/{1.73_m2} Normal >60 [facility] Comment on above: Result Comment: >60 mL/min/1.73m2 EGFR, calc. for ages 18 and older using the MDRD formula (not corrected for weight), is valid for stable renal function. Performed By: #### C MP #### [facility] [address] [place] [address] Globulin (S) [Mass/Vol] 3.3 g/dL Normal 2.3-3.5 [facility] Comment on above: Performed By: #### C MP #### [facility] [address] [place] [address] Glucose [Mass/Vol] 125 mg/dL Critically high 70-99 [facility] Comment on above: Performed By: #### C MP #### [facility] [address] [place] [address] Potassium [Moles/Vol] 3.9 mmol/L Normal 3.4-4.9 [facility] Comment on above: Performed By: #### C MP #### [facility] [address] [place] [address] Protein [Mass/Vol] 7.4 g/dL Normal 6.3-8.0 [facility] Comment on above: Performed By: #### C MP #### [facility] [address] [place] [address] Sodium [Moles/Vol] 139 mmol/L Normal 135-144 [facility] Comment on above: Performed By: #### C MP #### [facility] [address] [place] [address] Urea nitrogen [Mass/Vol] 17 mg/dL Normal 8-23 [facility] Comment on above: Performed By: #### C MP #### [facility] [address] [place] [address] Lipid Panelon 10-09-2020 Cholesterol [Mass/Vol] 251 mg/dL Critically high 0-199 [facility] Comment on above: Result Comment: ATP III Cholesterol Classification is High. Performed By: #### L IPID #### [facility] [address] [place] [address] Cholesterol in HDL [Mass/Vol] 69 mg/dL Critically high 40-59 [facility] Comment on above: Result Comment: ATP III HDL Cholesterol Classification is high. Expected Values: Males: >55 = No Risk 35-55 = Moderate Risk <35 = High Risk Females: >65 = No Risk 45-65 = Moderate Risk <45 = High Risk NCEP Guidelines: Third Report August 2000 >59 = negative risk factor for CHD <40 = major risk factor for CHD Performed By: #### L IPID #### [facility] [address] [place] [address] Cholesterol in LDL [Mass/Vol] 160 mg/dL Critically high 0-129 [facility] Comment on above: Result Comment: ATP III LDL Classification is High. Performed By: #### L IPID #### [facility] [address] [place] [address] Triglyceride [Mass/Vol] 108 mg/dL Normal 0-150 [facility] Comment on above: Result Comment: ATP III Triglycerides Classification is Normal. Performed By: #### L IPID #### [facility] [address] [place] [address] TSH w/Reflexon 10-09-2020 TSH w/Reflex 1.420 uIU/mL Normal 0.440-3.86 [facility] Comment on above: Performed By: #### T SHR #### [facility] [address] [place] [address] Vitamin B12 and Folateon Cobalamin (Vitamin B12) [Mass/Vol] 415 pg/mL Normal 232-1245 [facility] Comment on above: Performed By: #### B 12FO #### [facility] [address] [place] [address] Folate 11.7 ng/mL Normal 7.3-26.1 [facility] Comment on above: Result Comment: As o f 15, the methodology has changed. Results from this methodology should not be compared with results from previous methodology. Performed By: #### B 12FO #### [facility] [address] [place] [address] Vitamin Don 10-09-2020 Vitamin D 46.4 ng/mL Normal 30.0-100.0 [facility] Comment on above: Result Comment: (30- 100 ng/mL) Optimum Level This assay accurately quantifies the sum of vitamin D3, 25-Hydroxy and vitamin D2, 25-Hyroxy. Performed By: #### V ITD #### [facility] [address] [address] SURGICAL PATH REPORTon 10-02 SURGICAL PATH REPORT [facility] Department of Pathology [address] [place] [id number] Name: MYRANDA YANES : 1940 Financial [id number] Number: Gender: Female Location: [facility] Admit 80 years Attending SARKIS VALERO Age: Provider: Ordering SARKIS VALERO Provider: Consulting: Surgical Pathology Report ACCESSION: COLLECTED DATE/TIME: RECEIVED DATE/TIME: PATHOLOGIST: [id number] 09/25/2020 16:30 EDT 09/26/2020 12:22 EDT JARETH ALDANA, [facility] Final Diagnosis Report for [facility] [place] ILEOCOLIC RESECTION: - LOW GRADE APPENDICEAL MUCINOUS NEOPLASM (LAMN) , SEE NOTE. - TEN (10) BENIGN LYMPH NODES. NOTE: The neoplasm is confined in the appendix and measures 3.5 cm in greatest dimension. There is no invasion seen. Resection margins are negative for neoplasm. Intradepartmental consultation has been obtained. CANCER CASE SUMMARY Procedure Ileocolic resection Tumor Size Greatest dimension: 3.5 cm Histologic Type Low-grade appendiceal mucinous neoplasm Histologic Grade G1 : Well differentiated Tumor Extension Negative for invasion Margins Proximal Margin Uninvolved by low-grade appendiceal mucinous neoplasm Print Date10/02/2020 13:59 EDT Number: Time: [facility] Department of Pathology [address] [place] [id number] Name: MYRANDA YANES : 1940 Financial [id number] Number: Gender: Female Location: [facility] Admit 80 years Attending SARKIS VALERO Age: Provider: Ordering SARKIS VALERO Provider: Consulting: Surgical Pathology Report ACCESSION: COLLECTED DATE/TIME: RECEIVED DATE/TIME: PATHOLOGIST: [id number] 09/25/2020 16:30 EDT 09/26/2020 12:22 EDT JARETH ALDANA, [facility] Final Diagnosis Mesenteric Margin Uninvolved by appendiceal mucinous neoplasm Other Margins Distal margin: uninvolved by appendiceal mucinous neoplasm Lymphovascular Invasion Not identified Tumor Deposits Not identified Perineural Invasion Not identified Regional Lymph Nodes Number of Lymph Nodes Involved: 0 Number of Lymph Nodes Examined: 10 Pathologic Stage Classification (pTNM, AJCC 8th Edition) Primary Tumor (pT) pTis (LAMN): 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 Regional Lymph Nodes (pN) pN0: No regional lymph node metastasis YOVANA WILLS PATHOLOGIST (Electronic Signature) Date Verified 10/02/2020 CL Print Date/ 10/02/2020 13:59 EDT Number: Time: [facility] Department of Pathology [address] [place] [id number] Name: MYRANDA YANES : 1940 [facility] [id number] Number: Gender: Female Location: JORGE SILVA Admit 80 years Attending SARKIS VALERO Age: Provider: Ordering SARKIS VALERO Provider: Consulting: Surgical Pathology Report ACCESSION: COLLECTED DATE/TIME: RECEIVED DATE/TIME: PATHOLOGIST: [id number] 09/25/2020 16:30 EDT 09/26/2020 12:22 EDT JARETH ALDANA, [facility] Clinical Data PRE-OP DIAGNOSIS: Not specified POST-OP DIAGNOSIS: Acute appendicitis PROCEDURES: Laparoscopic appendectomy turned open ileocolic resection SPECIMEN: Ileocolic resection / Observation Gross Description Labeled ileocolic resection. Received in formalin is a colonic segment with attached fibroadipose tissue measuring 6.5 cm in length. A 5.0 cm length of terminal ileum is also attached. The serosal surface is pink purple, smooth and glistening. The appendix is pink white, dilated and measuring 3.5 x 1.7 x 1.6 cm. Sectioning of the appendix reveals mucinous content which is confined in the appendix. Upon opening the bowel it has a normal fold pattern with no masses, polyps or diverticula identified grossly. A few possible lymph nodes are encountered in the fibroadipose tissue. Additionally present in the specimen container is an additional stapled segment of castano pink mucosal surfaced soft tissue measuring 4.2 x 2.5 x 1.5 cm. Group Art Supervisor sections are submitted under the following designations: 1 - Proximal line of resection 2 - Distal line of resection 3-4 - Group Art Supervisor sections of specimen from proximal to distal 5-10 - Entire appendiceal mass-like area 11 - Additional tissue in container 12 - Possible lymph nodes MP/joseph 09/26/2020 Labeled ileocolic resection. Additional sections are submitted under the following designations: 13 - Two possible lymph nodes recovered in the fibroadipose tissue 14-34 - Remainder of fibroadipose tissue due to lack of lymph node recovery (more content not included)... [facility] Comment on above: Performed By: #### [id number] #### [facility] Laboratory Services [address] [place] [id number] Security Orderly: Figueroa Coto MD Encounters Encounter Date Encounter Type Care Provider Facility Start: 11-19-2022 End: 11-20-2022 ambulatory [facility] Start: 08-18-2022 End: 08-18-[address] WHITNEY GOODMAN . Facility:[facility] Start: 07-02-2022 End: 07-03-2022 ambulatory [facility] Start: 06-18-2022 End: 06-18-[address] WHITNEY GOODMAN . Facility:[facility] Start: 06-04-2022 End: 06-04-[address] WHITNEY GOODMAN . Facility:[facility] Start: 05-28-2022 End: 05-29-2022 ambulatory [facility] Start: 05-17-2022 End: 05-17-[address] WHITNEY GOODMAN . Facility:[facility] Start: 05-11-2022 Evaluation and manag ement of inpatient [facility] Start: 05-11-2022 Evaluation and manag ement of inpatient [facility] Start: 05-11-2022 Evaluation and manag ement of inpatient [facility] Start: 05-11-2022 Evaluation and manag ement of inpatient [facility] Start: 05-10-2022 Emergency department patient visit REMY RAMSAY [facility] Start: 05-10-2022 End: 05-12-2022 Evaluation and management of inpatient ANH ASHLEY [facility] Start: 05-10-2022 End: 05-10-[address] WHITNEY GOODMAN . Facility:[facility] Start: 04-06-2022 End: 04-07-[address] WHITNEY GOODMAN . Facility:[facility] Start: 03-30-2022 End: 03-31-2022 ambulatory GEORGE Lisset [facility] Start: 02-23-2022 End: 02-24-2022 ambulatory GEORGE Darling [facility] Start: 01-28-2022 End: 02-01-2022 Evaluation and management of inpatient DR WHITNEY GOODMAN . Facility:[facility] Start: 01-25-2022 End: 01-26-2022 ambulatory JASKARAN BEAL [facility] Start: 01-10-2022 End: 01-14-[address] WHITNEY GOODMAN . Facility:[facility] Start: 01-06-2022 End: 01-08-[address] WHITNEY GOODMAN . Facility: Start: 11-21-2021 End: 12-01-2021 Evaluation and management of inpatient WHITNEY GOODMAN Facility:[facility] Start: 11-21-2021 End: 11-21-[address] WHITNEY GOODMAN . Facility: Start: 11-06-2021 End: 11-12-2021 Evaluation and management of inpatient WHITNEY GOODMAN Facility:[facility] Start: 11-05-2021 End: 11-06-[address] WHITNEY GOODMAN . Facility: Start: 11-11-2020 End: 11-14-2020 ambulatory WHITNEY GOODMAN [facility] Start: 11-11-2020 End: 11-13-2020 Subsequent hospital visit by physician [facility] Schedule [facility] Comment on above: Arrived Start: 10-17-2020 End: 10-20-2020 ambulatory DOLORES CHAPA [facility] Start: 10-17-2020 End: 10-19-2020 Subsequent hospital visit by physician [facility] MRI Comment on above: Cerebrovascular acci dent (CVA), unspecified mechanism (HCC); Memory problem; Parkinson's disease (HCC) Procedures Date Procedure Procedure Detail Performing Clinician Start: 11-21-2021 Antibody screen WHITNEY GOODMAN Comment on above: Performed By: #### [id number] #### [facility] [address] Start: 11-06-2021 Antibody screen WHITNEY GOODMAN Comment on above: Performed By: #### [id number] ####[facility] [address] Start: 10-17-2020 Mri brain brain stem w/o contrast material Dolores Chapa PA-C Work Phone: Start: 10-15-2020 H/O: surgery Laparoscopic s urgical procedure converted to open procedure [facility] Schedule Plan of Treatment Date Care Activity Detail Author Start: 10-09-2021 Creatinine measurement [facility] Start: 10-09-2021 Potassium monitoring Potassium monitoring [facility] [employer] Phone: Start: 12-31-2020 Influenza vaccination [facility] [employer] Phone: Start: 11-14-2020 End: 11-14-2020 Patient encounter procedure 11/14/2020 Office Visit Neurology Dolores Chapa PA-C [id number] [id number] [employer] [facility] Start: 2007 Pneumococcal 65+ years Vaccine (1 of 1 - PPSV23) Pneumococcal 65+ years Vaccine (1 of 1 - PPSV23) [employer] Phone: Start: 1997 Screening for osteoporosis DEXA (modify frequency per FRAX score) [employer] Phone: Start: 1992 Shingles Vaccine (1 of 2) Shingles Vaccine (1 of 2) [employer] Phone: Start: 1961 DTaP/Tdap/Td vaccine (1 - Tdap) DTaP/Tdap/Td vaccine (1 - Tdap) [employer] Phone: Start: 1954 COVID-19 Vaccine (1) COVID-19 Vaccine (1) [employer] Phone: Start: 1940 Hepatitis C screening Hepatitis C screen [employer] Phone: Payers Date Payer Category Payer Medicare [id number] 1957 Private Health Insurance [id number] 1940 Unknown [id number] 2.16.8 [id number] 1940 Unknown [id number] 2.16.8 [id number] 1940 Unknown [id number] 2.16.8 [id number] 1940 Unknown [id number] 2.16.8 [id number] 1940 Unknown [id number] 2.16.84 [id number] 1940 Unknown [id number] 2.16.84 [id number] 1940 Unknown [id number] 2.16.84 [id number] 1940 Unknown [id number] 2.16.84 [id number] 1940 Unknown [id number] 2.16.84 [id number] 1940 Unknown [id number] 2.16.84 [id number] 1940 Unknown [id number] 2.16.84 [id number] 1940 Unknown [id number] 2.16.84 [id number] 1940 Unknown [id number] 2.16.84 0.1.127673.3.579.2.593 1940 Unknown [id number] 2.16.84 [id number] 1940 Unknown [id number] 2.16.84 [id number] Social History Date Type Detail Facility Start: 10-09-2020 Tobacco smoking stat [facility] Unknown if ever smoked [employer] Phone: Start: 1940 Sex Assigned At Not on file [facility] [employer] Phone: Exposure to SARS-CoV -2 (event) Not sure [employer] Clinical Notes 06-12-2020 to 11-19-2022 Note Date & Type Note Facility 11-19-2022 Note Subjective Chief complaint: Chief Complaint Patient presents with Right Hip - Follow-up Left Hip - Follow-up 11/19/22 Patient is accompanied by her family. She currently resides in a assisted living facility. She has finished physical therapy. Patient's family states they have noticed an increase in weakness. She normally ambulates with a walker at her facility. She states she has minimal pain. She is also noted to have left lower extremity shortening for which she is wearing a shoe insert. Family also states she has an antalgic gait when ambulating. Pt also had a L CMN 11/06/21 and L tibial nail 11/26/[address] Beal. 07/02/22 Myranda Yanes is a 82 y.o. year old female presenting for evaluation of R hip S/p hemiarthroplasty with Dr. Shine 05/11/22. Patient overall doing well. Pain has been improving. Ambulating with walker and increasing activity. No issues with incision. Notes some internal rotation to the RLE. Here today with family who notes she is progressing well. She feels she is continue to make progress with physical therapy 3x/week. Patient has dementia. Previous Treatments: physical therapy ROS: Denies fevers, chills, and other constitutional symptoms. Denies shortness of breath. Patient History Past Surgical History: Procedure Laterality Date HIP SURGERY Left Past Medical History: Diagnosis Date Anxiety COPD (chronic obstructive pulmonary disease) ([facility]) Dementia ([facility]) Dysphagia mechanical soft diet with nectar thick liquids and instruction to drink after each bite of food Femoral neck fracture ([facility]) 05/10/2022 right side GERD (gastroesophageal reflux disease) Hyperlipidemia Hypertension Parkinson's disease ([facility]) Objective General: There is no height or weight on file to calculate BMI. There were no vitals filed for this visit. No acute distress, comfortable Respiratory: Unlabored breathing with normal rate, no cough Cardiovascular: Warm well perfused extremities Psych: Appropriate mood behavior Right Hip: Nontender to palpation over proximal femur, pelvis No pain with flexion and rotation of the right hip Hip ROM: 10 degrees of increased internal rotation L hip compared to R. Strength: Hip Flexion 4+/5 Hip Extension 4+/5 Knee Extension 4/5 LLE is shortened 1-2 cm compared to the right Imaging: We have personally reviewed the following images and our independent interpretation is as follows: Radiographs of right hip taken today 11/19/22 demonstrate(s) R Hemiarthroplasty and cement in place, no evidence of lucency, new fractures or dislocations. L nail also in place with some shortening of the fracture and femoral neck. No obvious fractures, dislocations, or acute bony pathology appreciated. Assessment/Plan Myranda Yanes is a 82 y.o. year old female s/p R hip hemiarthroplasty for R FNF (DOS: 05/11/22). Pt also had a L CMN 11/06/21 and L tibial nail 11/26/[address] Beal. Pt completed PT at her nursing facility. Given script for custom shoe lift on the left given LLD Plan: -WBAT RLE -posterior hip precautions -FU PRN. Call with any questions/concerns. Renea Ortiz MD Orthopaedic Surgery PGY-2 [facility] 11/19/22 10:31 AM [facility] 07-02-2022 Note Subjective Chief complaint: Chief Complaint Patient presents with Left Hip - Follow-up Right Hip - Follow-up Older injury that is bothering her more than her newer left hip surgery. 07/02/22 Myranda Yanes is a 82 y.o. year old female presenting for evaluation of R hip S/p hemiarthroplasty with Dr. Shine 05/11/22. Patient overall doing well. Pain has been improving. Ambulating with walker and increasing activity. No issues with incision. Notes some internal rotation to the RLE. Here today with family who notes she is progressing well. She feels she is continue to make progress with physical therapy 3x/week. Patient has dementia. Previous Treatments: physical therapy ROS: Denies fevers, chills, and other constitutional symptoms. Denies shortness of breath. Patient History Past Surgical History: Procedure Laterality Date HIP SURGERY Left Past Medical History: Diagnosis Date Anxiety COPD (chronic obstructive pulmonary disease) ([facility]) Dementia ([facility]) Dysphagia mechanical soft diet with nectar thick liquids and instruction to drink after each bite of food Femoral neck fracture ([facility]) 05/10/2022 right side GERD (gastroesophageal reflux disease) Hyperlipidemia Hypertension Parkinson's disease ([facility]) Objective General: There is no height or weight on file to calculate BMI. There were no vitals filed for this visit. No acute distress, comfortable Respiratory: Unlabored breathing with normal rate, no cough Cardiovascular: Warm well perfused extremities Psych: Appropriate mood behavior Right Hip: Nontender to palpation over proximal femur, pelvis Hip ROM: Internal Rotation 20??? External Rotation 20??? Flexion 80??? Strength: Hip Flexion 4+/5 Hip Extension 4+/5 Knee Extension 4/5 LLE is shortened 1-2 cm compared to the right Gait: antalgic Imaging: We have personally reviewed the following images and our independent interpretation is as follows: Radiographs of right hip taken today 07/02/22 demonstrate(s) Hemiarthroplasty and cement in place, no evidence of lucency, new fractures or dislocations. L nail also in place with some shortening of the fracture and femoral neck. No obvious fractures, dislocations, or acute bony pathology appreciated. Assessment/Plan Myranda Yanes is a 82 y.o. year old female s/p L hip hemiarthroplasty for L FNF with Dr. Shine 05/11/22. Plan: -WBAT RLE -PT for Gait/ROM/Strengthening -posterior hip precautions -Follow up in 3 months with pelvis and right hip x-rays -Given script for custom shoe lift on the left given LLD Call with any questions/concerns. Мария Pillai MD Orthopedic Surgery, PGY-2 [facility] By using the attestations below, the signing clinician agrees that I have read and verify that the documentation has been personally reviewed by me and ensure that the documentation accurately reflects the encounter. GC: I personally saw this patient on the day of the encounter, performed the mora portion(s) of the service and participated in the management and confirm the resident's documentation. Please note there may be an additional personal documentation from me. [facility] 05-28-2022 Note Subjective Chief complaint: Chief Complaint Patient presents with Right Hip - Post-op, Pain 05/28/22 Myranda Yanes is a 82 y.o. year old female presenting for evaluation of R hip S/p hemiarthroplasty with Dr. Shine 05/11/22. Patient overall doing well. Pain has been improving. Ambulating with walker minimally. Patient said she is up to around 10 steps at a time. She feels she is continue to make progress with physical therapy. Patient has not been using abduction pillow at rest. She is primarily in the bed son and daughter would prefer if she can get more physical therapy and activity. Patient has dementia. Overall she said her pain is improving substantially and she is solely relying on Tylenol for pain control. Overall she feels she is doing quite well eating, drinking normally. She does have an active UTI and some lower abdominal pain which the facility physician is managing. Patient is taking Eliquis for DVT prophylaxis. It is unclear whether or not she has new onset of A. fib. We recommend least 2 more weeks of physical of DVT prophylaxis in the department to her PCP and facility physician. Denies numbness, tingling, and weakness. Previous Treatments: physical therapy ROS: Denies fevers, chills, and other constitutional symptoms. Denies shortness of breath. Patient History Past Surgical History: Procedure Laterality Date HIP SURGERY Left Past Medical History: Diagnosis Date Anxiety COPD (chronic obstructive pulmonary disease) ([facility]) Dementia ([facility]) Dysphagia mechanical soft diet with nectar thick liquids and instruction to drink after each bite of food Femoral neck fracture ([facility]) 05/10/2022 right side GERD (gastroesophageal reflux disease) Hyperlipidemia Hypertension Parkinson's disease ([facility]) Objective General: Body mass index is 22.15 kg/m???. There were no vitals filed for this visit. No acute distress, comfortable Respiratory: Unlabored breathing with normal rate, no cough Cardiovascular: Warm well perfused extremities Psych: Appropriate mood behavior Right Hip: Inspection- sutures removed, incision CDI, no ecchymosis, no edema Tender to palpation over incision minimally. Nontender to palpation over proximal femur, pelvis Hip ROM: Internal Rotation 20??? External Rotation 20??? Flexion 80??? Strength: Hip Flexion 4/5 Hip Extension 4/5 Knee Flexion 4/5 Knee Extension 4/5 Sensation: intact over superficial peroneal, deep peroneal and tibial nerve distributions Gait: antalgic Imaging: We have personally reviewed the following images and our independent interpretation is as follows: Radiographs of right hip taken today 05/28/22 demonstrate(s) Hemiarthroplasty and cement in place, no evidence of lucency, new fractures or dislocations. L nail also in place. No obvious fractures, dislocations, or acute bony pathology appreciated. Assessment/Plan Myranda Yanes is a 82 y.o. year old female s/p L hip hemiarthroplasty for L FNF with Dr. Shine 05/11/22. Plan: -WBAT RLE -PT for Gait/ROM/Strengthening -Abduction pillow at rest -Pain control -Eliquis DVT prophylaxis, we recommend at least 2 more weeks, then per pcp/facility physician. -ABX for UTI per facility physician. -posterior hip precautions -Follow up in 6 weeks. Call with any questions/concerns. Мария Pillai MD Orthopedic Surgery, PGY-2 [facility] By using the attestations below, the signing clinician agrees that I have read and verify that the documentation has been personally reviewed by me and ensure that the documentation accurately reflects the encounter. GC: I personally saw this patient on the day of the encounter, performed the mora portion(s) of the service and participated in the management and confirm the resident's documentation. Please note there may be an additional personal documentation from me. [facility] 05-12-2022 Note Spoke with pt's son this morning to inform of DC today. Son does not want pt to return [facility]. [facility] PT/OT recommends SNF, phoned and sent referral to [facility]. They will accept pt under [employer] Waiver and start precert. [facility] will transport pt at 6:30pm. Transfer packet done and AVS/DC orders sent. Skye NESBITT will call with report. Son will meet pt at [facility] this evening. [facility] 05-12-2022 Note PHYSICAL THERAPY NONI ANDERSONATION 05/12/22 1527 Time Calculation Start Time 1032 Stop Time 1049 Time Calculation (min) 17 min PT Evaluation Time Entry PT Evaluation (Moderate) Time Entry 17 History of Present Illness 81 y/o female presenting as transfer from [facility] for fall and R hip fracture. Per report, she fell at her assisted and had right hip pain, she was found on x-ray and CT at outside facility to have a right femoral neck fracture with no other injuries. Past Medical History Advanced vascular dementia, HTN, anxiety, COPD, GERD, L hip ORIF, L tibia IM nikhil, deafness, Parkinson's dz, peripheral neuropathy, hypothyroidism, LAURITA, thrombocytopenia. Current Diagnoses right femoral neck fracture s/p right hip cemented hemiarthroplasty 05/12/22 1033 PT Last Visit PT Received On 05/12/22 Precautions LE Weight Bearing Status Right;WBAT Medical Precautions bed alarm;fall risk;chair alarm;telemetry;[place] Post-Surgical Precautions hip abductor pillow when in bed; posterior hip precautions Pain Assessment Pain Score 10 - Worst possible pain Pain Type Acute pain Pain Location Hip Pain Orientation Right;Left Parker Scale (RS): Score (Min to moderate pain behaviors observed. Pt participated actively in functional mobility assessment) Cognition Overall Cognitive Status Impaired Arousal/Alertness Appropriate responses to stimuli Orientation Level Oriented to person;Disoriented to time;Disoriented to situation;Disoriented to place (does not recall injury or surgery) Following Commands Follows one step commands with increased time;Follows one step commands with repetition Awareness of Errors Decreased awareness of errors Attention Span Attends with cues to redirect Memory Decreased recall of recent events;Decreased short term memory;Decreased recall of precautions;Decreased recall of biographical information Problem Solving Assistance required to identify errors made;Assistance required to generate solutions;Assistance required to implement solutions Home Living Type of Home Assisted living Home Layout One level Home Access Level entry Prior Function Level of [place] (independent prior to L hip fx in recent past; had just returned [place]F [place] after L hip rehab) Perception Motor Planning (deficits noted during bed mobility) Coordination Movements are Fluid and Coordinated Yes Postural Control Postural Control Deficits on evaluation Trunk Control posterior LOB w/ single knee extension when sitting EOB and w/ scooting to EOB Righting Reactions decreased Protective Responses decreased Static Sitting Balance Static Sitting-Balance Support Unilateral upper extremity supported;Feet supported Static Sitting-Level of Assistance Contact guard Dynamic Sitting Balance Dynamic Sitting-Balance Support Right upper extremity supported;Left upper extremity supported;Feet supported Dynamic Sitting-Balance (to scoot toward EOB in sitting) Dynamic Sitting Balance-Level of Assistance Minimum assistance Static Standing Balance Static Standing-Balance Support (RW) Static Standing-Level of Assistance Moderate assistance Static Standing-Comment/Number of Minutes Decreased weight bearing on RLE; hip and knee flexion noted w/ heel off ground; L hip IR also noted Bed Mobility 1 Bed Mobility From 1 Supine Bed Mobility Type 1 To Bed Mobility to 1 Short sit Level of Assistance 1 Maximum assistance Bed Mobility Comments 1 HOB raised, decreased motor planning, difficulty scooting hips, need for supervision/manual cues to maintain hip precautions (Physical assist to raise trunk, turn hips) Transfer 1 Transfer From 1 Sit Transfer Type 1 To and from Transfer to 1 Stand Technique 1 Sit to stand Transfer Device 1 rolling walker Transfer Level of Assistance 1 Moderate assistance Ambulation 1 Device 1 Rolling walker Assistance 1 Maximum assistance Comments/Distance (ft) 1 3' RLE Assessment RLE Assessment (R quads tested antigravity, movements are antalgic but otherwise smooth/coordinated) LLE Assessment LLE Assessment (L quads tested antigravity; L hip noted to be positioned in IR at rest and during standing and gait; pt s/p ORIF L hip) PT Assessment Impairments Decreased strength;Decreased range of motion;Decreased endurance;Impaired balance;Decreased mobility;Decreased coordination;Decreased cognition;Impaired judgement;Decreased safety awareness;Orthopedic restrictions PT Assessment 81 y/o female demonstrating the above impairments resulting in need for skilled PT services to return to safe functional mobility w/in orthopedic restrictions. Evaluation/Treatment Tolerance Patient tolerated treatment well Plan Level of assist 2 assist (for gait) Treatment/Interventions Functional transfer training;LE strengthening/ROM;Endurance training;Patient/family training;Equipment eval/education;Bed mobility (more content not included)... [facility] 05-12-2022 Note Hospital Medicine Discharge Summary Final Discharge Diagnosis: #Traumatic fall: #Right femoral neck fracture s/p R hemiarthroplasty 05/11/21 #Hypertension: #Gastroesophageal reflux disease #Advanced dementia #History of severe anxiety Admission Diagnosis: Closed fracture of neck of right femur, initial encounter ([facility]) [S72.001A] Fall, initial encounter [W19.XXXA] Fall at home, sequela [W19.XXXS, Y92.009] Hospital course: 81 years old female lady with a medical history of hypertension, advanced vascular dementia, deafness type II, Parkinson disease, peripheral neuropathy, gastroesophageal reflux disease, hypothyroidism, ideation hours anxiety disorder, obstructive sleep apnea, thrombocytopenia unspecified, iron deficiency anemia. She came into [facility] ED as a transfer from outside hospital /[facility] for fall and hip fracture and was found to have a R femoral neck fracture and bruising to her forehead. orthopedic team was consulted and patient underwent hemiarthroplasty on . her postop course remained unremarkable. Of note patient is noted to be at Eliquis at home for unclear reasons that was started by her family physician in January 2022, Eliquis is continued at discharge and instructions are provided to follow-up with PCP after discharge. Dear Dr. Maxine MD, [facility] is advised to follow up with you within 1-2 weeks. Follow-up with: Orthopedics Scheduled appointments: Future Appointments Date Time Provider Department Center 05/28/2022 12:40 PM Carlie Shine MD [facility] Your medication list START taking these medications Instructions Last Dose Given Next Dose Due HYDROmorphone 2 mg tablet Commonly known as: Dilaudid Take 1 tablet (2 mg) by mouth every 6 (six) hours if needed for severe pain (8-10 pain score) for up to 5 days. CONTINUE taking these medications Instructions Last Dose Given Next Dose Due acetaminophen 325 mg tablet Commonly known as: Tylenol albuterol 2.5 mg /3 mL (0.083 %) nebulizer solution amitriptyline 75 mg tablet Commonly known as: Elavil apixaban 5 mg tablet Commonly known as: Eliquis benzonatate 200 mg capsule Commonly known as: Tessalon bisacodyl 10 mg suppository Commonly known as: Dulcolax bisacodyl 5 mg EC tablet Commonly known as: Dulcolax clonazePAM 0.5 mg tablet Commonly known as: KlonoPIN clonazePAM 0.5 mg tablet Commonly known as: KlonoPIN dextromethorphan-guaifenesin 10-100 mg/5 mL syrup Commonly known as: Robitussin DM hyoscyamine 0.125 mg dissolvable tablet Commonly known as: Levsin SL levothyroxine 75 mcg tablet Commonly known as: Synthroid, Levoxyl Maalox Advanced 200-200-20 mg/5 mL oral suspension Generic drug: alum-mag hydroxide-simeth memantine 28 mg capsule,sprinkle,ER 24hr Commonly known as: Namenda XR metoprolol tartrate 25 mg tablet Commonly known as: Lopressor pantoprazole 40 mg EC tablet Commonly known as: ProtoNix polyethylene glycol 17 gram packet Commonly known as: Glycolax sennosides-docusate sodium 8.6-50 mg tablet Commonly known as: Jacinda-Colace venlafaxine XR 75 mg 24 hr capsule Commonly known as: Effexor-XR Vitamin D3 50 MCG (2000 UT) tablet Generic drug: cholecalciferol Where to Get Your Medications You can get these medications from any pharmacy Bring a paper prescription for each of these medications HYDROmorphone 2 mg tablet Myranda is allergic to sulfa (sulfonamide antibiotics), adhesive, adhesive tape-silicones, ciprofloxacin, oxycodone-acetaminophen, and sulfamethoxazole-trimethoprim. Disposition: [facility] Facility Discharge Condition: Stable Code Status: Full Code Diagnostic Results Hematology: Results from last 7 days Lab Units 05/12/22 0604 05/10/22 2324 WBC AUTO 10*3/uL 11.38* 8.01 HEMOGLOBIN g/dL 9.8* 12.4 HEMATOCRIT % 28.8* 37.2 MCV fL 90.6 91.4 PLATELETS AUTO 10*3/uL 111* 130* Chemistry: Results from last 7 days Lab Units 05/12/22 0604 05/10/22 2302 SODIUM mmol/L 137 139 POTASSIUM mmol/L 4.2 4.2 CHLORIDE mmol/L 105 106 CO2 mmol/L 24 27 BUN mg/dL 17 18 CREATININE mg/dL 0.93 0.84 GLUCOSE mg/dL 164* 100 MAGNESIUM mg/dL 1.5* -- CALCIUM mg/dL 8.8 9.1 PHOSPHORUS mg/dL 2.6 -- No lab exists for component: AFIO2, APHT, APCOT, APOT, ATCO2, CK, ALB, IBILI Test Results Pending At Discharge: Diet at the time of discharge: regular diet Activity: WBAT, posterior hip precautions Objective Blood pressure 138/59, pulse 108, temperature 36.7 ???C (98.1 ???F), temperature source Oral, resp. rate 25, height 1.702 m (5' 7.01 ), weight 68.9 kg (151 lb 14.4 oz), SpO2 94 %. General: Alert , disoriented, at baseline Cardiology: Normal rate, regular rhythm. Lungs: Clear to auscultation, no wheezes, rales or rhonchi, symmetric air entry. Abdomen: Soft, non tender, non distended. Total time for discharge - review of data, exam, discussion with providers and care-team, med-rec (more content not included)... [facility] 05-12-2022 Note Occupational Therapy Occupational Therapy Evaluation Patient Name: Myranda Yanes : 1940 Today's Date: 05/12/2022 Discharge Recommendation: SNF Myranda Yanes is a 81 y.o. female presenting with Hip Pain. This is a 81 years old female lady with a medical history of hypertension, advanced vascular dementia, deafness type II, Parkinson disease, peripheral neuropathy, gastroesophageal reflux disease, hypothyroidism, ideation hours anxiety disorder, obstructive sleep apnea, thrombocytopenia unspecified, iron deficiency anemia. She came into [facility] ED as a transfer from outside hospital /[facility] for fall and hip fracture. R hip hemiarthroplasty 05/11/21. Initiated session with pt supine in bed. Pt supine to sit with extended time and A from OT/PT, tolerated ROM and MMT, sit to stand on 2nd attempt, functional mobility to chair with A and cues, and stand to sit in chair. Concluded session with pt seated in chair setup for breakfast with call light in reach and chair alarm armed. RN approved pt for OOB activity this date and pt agreeable. Time In: 1016 Time Out: 1050 General Subjective: Pt pleasant, cooperative, confused, unreliable historian Family/Caregiver Present: No Patient Active Problem List Diagnosis Closed fracture of left fibula and tibia Fall at home, sequela Closed fracture of neck of right femur (CMS/HCC) Past Medical History: Diagnosis Date Anxiety COPD (chronic obstructive pulmonary disease) (CMS/HCC) Dementia ([facility]/HCC) Dysphagia mechanical soft diet with nectar thick liquids and instruction to drink after each bite of food Femoral neck fracture (CMS/HCC) 05/10/2022 right side GERD (gastroesophageal reflux disease) Hyperlipidemia Hypertension Parkinson's disease ([facility]/HCC) Past Surgical History: Procedure Laterality Date HIP SURGERY Left Pain Pain Assessment Pain Assessment: 0-10 Pain Score: 10 - Worst possible pain Pain Type: Acute pain, Surgical pain Pain Location: Hip Pain Orientation: Right, Left Home Living Home Living Type of Home: Assisted living (admitted from SNF) Lives With: Spouse Home Adaptive Equipment: (pt unable to report) Home Living Comments: pt unable to reliably report home s/u, reports and son are available to A PRN and states both still work Home Layout: One level Home Access: Level entry Prior Level of Function Prior Function Level of [place]: Independent with ADLs and functional transfers, Independent with homemaking with ambulation (A from family PRN, reports typically no device for mobility) Receives Help From: Family Static Sitting Balance Static Sitting Balance Static Sitting-Balance Support: Unilateral upper extremity supported, Feet supported Static Sitting-Level of Assistance: Contact guard (EOB, distant supervision in chair) Dynamic Sitting Balance Dynamic Sitting Balance Dynamic Sitting-Balance Support: Unilateral upper extremity supported, Feet supported Dynamic Sitting Balance-Level of Assistance: Minimum assistance (vs CGA) Static Standing Balance Static Standing Balance Static Standing-Balance Support: Right upper extremity supported, Left upper extremity supported (rw and A from OT/PT) Static Standing-Level of Assistance: Minimum assistance Dynamic Standing Balance Dynamic Standing Balance Dynamic Standing-Balance Support: Right upper extremity supported, Left upper extremity supported (rw and A from OT/PT) Dynamic Standing Balance-Level of Assistance: Moderate assistance Bed Mobility Bed Mobility Bed Mobility: Yes Bed Mobility 1 Bed Mobility From 1: Supine Bed Mobility Type 1: To Bed Mobility to 1: Short sit Level of Assistance 1: Moderate assistance, Maximum verbal cues, Minimal tactile cues Bed Mobility Comments 1: pt able to scoot hips to R putting pressure through BLE, A to raise trunk from bed and begin scooting to EOB, cues for precautions and technique Transfers Transfers Transfer: Yes Transfer 1 Transfer From 1: Bed Transfer Type 1: To Transfer to 1: Chair with arms Technique 1: Sit to stand, Stand to sit Transfer Device 1: rolling walker Transfer Level of Assistance 1: Moderate assistance, Maximum verbal cues, Moderate tactile cues (A to stand following failed attempt, cues for precautions and technique) Objective General Visit Information: General Subjective: Pt pleasant, cooperative, confused, unreliable historian Family/Caregiver Present: No Precautions Precautions LE Weight Bearing Status: Right, WBAT Medical Precautions: bed alarm, chair alarm, fall risk, IV, franco, posterior JANELLE, telemetry (abduction pillow) Cognition Cognition Overall Cognitive Status: Impaired Arousal/Alertness: Appropriate responses to stimuli Orientation Level: Oriented to situation, Disoriented to place, Disoriented to time, Disoriented to person (oriented to self with multiple promp (more content not included)... [facility] 05-12-2022 Note I reviewed the patie nt's events and examined the patient. I viewed the relevant imaging and reviewed recent laboratory results. Co-morbidities addressed and medications reconciled. The plan of care reviewed with the team. I agree with the findings and the plan of care as documented in the detailed note with the following points of emphasis: Patient condition serious at the time of examination on 2022. I provided a substantive portion of the care of this patient , I personally performed Medical Decision Making ( Lena Paredes ) in its entirety for this encounter, My substantive portion of the care includes the following: Reviewing interval events, Performing pertinent physical exam, Review of any laboratory results, making appropriate management decisions, and/or ordering any new laboratory tests if needed, and/or Independent review of X-rays and/or CT scans and making clinical decisions based on the findings, deciding on continuation and/or discontinuation of medications and/or adding new medications as needed. Discussion of management with consultants if needed. These are documented in the brief clinical summary and the detailed note. Pj Hays MD PhD This is an 82-year-old female who sustained a fall at the assisted that resulted in right femoral neck fracture, full trauma work-up did not show any other injuries, tertiary survey was conducted this morning and patient is alert and oriented to self, there is no apparent neck pain and his c-collar was removed, lungs are clear bilaterally abdomen soft nontender not distended no guarding no rebound, pelvis is stable tenderness over the right hip, neurovascular checks in the lower extremity are normal, patient had right hemiarthroplasty, NA 137, K4.2, BUN 17, creatinine 0.93, glucose 164, calcium 8.8, WBC 13.38, Hb 9.8, HCT 28.8, PLT 111, Mg 1.5 and is being replaced, PT 2.6, patient is doing very well and trauma surgery will sign off at this time Subjective Patient relates she rested well overnight and her pain is well controlled. Denies abdominal pain, chest pain, numbness/tingling of the extremities, or shortness of breath, Objective BP: (122-157)/(59-92) 138/59 (05/12 826) Temp: [36.4 ???C (97.5 ???F)-37.4 ???C (99.3 ???F)] 36.7 ???C (98.1 ???F) (05/12 826) Temp Source: Oral (05/12 826) Heart Rate: [89-113] 108 (05/12 826) Resp: [11-29] 25 (05/12 826) SpO2: [94 %-100 %] 94 % (05/12 826) Height: [170.2 cm (5' 7.01 )] 170.2 cm (5' 7.01 ) (05/11 1299) Weight: [68.9 kg (151 lb 14.4 oz)] 68.9 kg (151 lb 14.4 oz) (05/11 1299) Lorna Coma Scale Score: 14 Intake/Output Summary (Last 24 hours) at 05/12/2022 1004 Last data filed at 05/12/2022 0700 Gross per 24 hour Intake 2031.17 ml Output 2000 ml Net 31.17 ml Recent Results (from the past 12 hour(s)) Basic metabolic panel Collection Time: 05/12/22 6:04 AM Result Value Ref Range Sodium 137 136 - 145 mmol/L Potassium 4.2 3.5 - 5.1 mmol/L Chloride 105 98 - 107 mmol/L CO2 24 21 - 31 mmol/L BUN 17 7 - 25 mg/dL Creatinine 0.93 0.60 - 1.20 mg/dL Glucose 164 (H) 70 - 100 mg/dL Calcium 8.8 8.6 - 10.3 mg/dL Anion Gap 8 7 - 20 mmol/L eGFR 58.6 (L) >60.0 mL/min/1.73m*2 BUN/Creatinine Ratio 18.28 CBC Collection Time: 05/12/22 6:04 AM Result Value Ref Range Auto WBC 11.38 (H) 4.00 - 10.60 10*3/uL RBC 3.18 (L) 3.80 - 5.00 10*6/uL Hemoglobin 9.8 (L) 12.0 - 15.0 g/dL Hematocrit 28.8 (L) 36.0 - 48.0 % MCV 90.6 82.0 - 98.0 fL MCH 30.8 27.0 - 33.0 pg MCHC 34.0 32.0 - 35.0 g/dL RDW 13.6 11.5 - 15.0 % Platelets 111 (L) 150 - 400 10*3/uL Magnesium Collection Time: 05/12/22 6:04 AM Result Value Ref Range Magnesium 1.5 (L) 1.9 - 2.7 mg/dL Phosphorus Collection Time: 05/12/22 6:04 AM Result Value Ref Range Phosphorus 2.6 2.5 - 5.0 mg/dL Physical Exam: Tertiary Survey: General: Awake, Alert, No acute distress Head: Normocephalic And Atraumatic. Eyes: PERRL. EOMI. Atraumatic Neurologic: Alert And Oriented to self. Moving Extremities And Following Commands. Neck: Cervical Spine Is Nontender To Palpation Without Step-Offs, Crepitus, Or Deformity. No Abrasions, Contusions, Or Ecchymosis Noted Lungs: Clear with diminished bases. Nonlabored on room air. Chest Wall: Chest Rise Symmetrical. No Crepitus, Deformities, Lacerations, Or Abrasions Heart: Regular rhythm, 2+ radial/dp pulses bilaterally Abdomen: Soft, Nontender, And Nondistended Pelvis: Pelvis Is Stable To Compression, tenderness to palpation of right hip Extremities: RLE: Dry dressing in place over surgical site. Compartments soft and compressible. Brisk capillary refill. Abduction pillow in place. Skin: Warm And Dry Myranda Yanes is a 81 year old female who presents after a fall at assisted resulting in a right femoral neck fracture. Assessment/Plan Principal Problem: Fall at home, sequela Active Problems: Closed fracture of neck of right femur ([facility]) Plan: -Te (more content not included)... [facility] 05-12-2022 Note ------ Attestation signed by Carlie Shine MD at 05/12/2022 8:50 AM Patient seen and examined and I agree with above documentation. ------ Subjective NAEON. Patient said pain well controlled. Denies new weakness, numbness, tingling. Denies fevers, chills, CP, SOB, NVD, additional/systemic symptoms. Objective Patient Vitals for the past 24 hrs: BP Temp Temp src Pulse Resp SpO2 Height Weight 05/12/22 0400 125/76 -- -- 100 -- 98 % -- -- 05/12/22 0000 142/75 -- -- 97 23 98 % -- -- 05/11/22 2041 141/77 36.8 ???C (98.2 ???F) Oral 100 13 100 % -- -- 05/11/222014 134/80 -- -- 98 22 -- -- -- 05/11/221999 130/81 -- -- 99 23 -- -- -- 05/11/22 1945 147/62 -- -- 105 13 -- -- -- 05/11/22 1930 144/66 -- -- 108 16 -- -- -- 05/11/22 1920 (!) 122/92 36.4 ???C (97.5 ???F) Temporal 108 17 -- -- -- 05/11/22 1306 -- -- -- 101 15 100 % -- -- 05/11/22 1305 -- -- -- 89 16 100 % -- -- 05/11/22 1304 -- -- -- 101 20 100 % -- -- 05/11/22 1303 -- -- -- 99 22 99 % -- -- 05/11/22 1302 -- -- -- 103 19 100 % -- -- 05/11/22 1301 -- -- -- 95 16 100 % -- -- 05/11/22 1300 157/77 37.4 ???C (99.3 ???F) Temporal 89 16 99 % 1.702 m (5' 7.01 ) 68.9 kg (151 lb 14.4 oz) 05/11/22 1259 -- -- -- 103 25 100 % -- -- 05/11/22 1257 -- -- -- 99 17 99 % -- -- 05/11/22 1256 -- -- -- 99 14 100 % -- -- 05/11/22 1255 -- -- -- 95 17 99 % -- -- 05/11/22 1254 -- -- -- 99 16 100 % -- -- 05/11/22 1253 -- -- -- 97 14 100 % -- -- 05/11/22 1252 -- -- -- 96 16 99 % -- -- 05/11/22 1251 -- -- -- 98 15 99 % -- -- 05/11/22 1250 -- -- -- 97 18 98 % -- -- 05/11/22 1249 -- -- -- 98 19 98 % -- -- 05/11/22 1248 -- -- -- 101 14 99 % -- -- 05/11/22 1247 -- -- -- 99 19 98 % -- -- 05/11/22 1246 -- -- -- 99 13 100 % -- -- 05/11/22 1245 -- -- -- 99 14 100 % -- -- 05/11/22 1244 -- -- -- 94 14 98 % -- -- 05/11/22 1243 -- -- -- 97 17 97 % -- -- 05/11/22 1242 -- -- -- 97 17 97 % -- -- 05/11/22 1241 -- -- -- 98 13 97 % -- -- 05/11/22 1240 -- -- -- 102 19 98 % -- -- 05/11/22 1239 -- -- -- 93 11 99 % -- -- 05/11/22 1238 -- -- -- 95 12 99 % -- -- 05/11/22 1237 -- -- -- 93 18 100 % -- -- 05/11/22 1236 -- -- -- 101 20 98 % -- -- 05/11/22 1235 -- -- -- 101 -- 99 % -- -- 05/11/22 1234 -- -- -- 108 -- 97 % -- -- 05/11/22 1233 -- -- -- (!) 112 -- 99 % -- -- 05/11/22 1232 -- -- -- 110 -- 97 % -- -- 05/11/22 1231 -- -- -- 110 -- 97 % -- -- 05/11/221229 -- -- -- 106 -- 96 % -- -- 05/11/221228 -- -- -- 108 -- 97 % -- -- 05/11/221227 -- -- -- 109 -- 96 % -- -- 05/11/221226 -- -- -- 110 -- 95 % -- -- 05/11/221225 -- -- -- 109 -- 97 % -- -- 05/11/221224 -- -- -- 107 -- 96 % -- -- 05/11/221223 -- -- -- 108 -- 98 % -- -- 05/11/221222 -- -- -- 108 -- 98 % -- -- 05/11/221221 -- -- -- 107 -- 99 % -- -- 05/11/221220 -- -- -- 106 -- 98 % -- -- 05/11/221219 -- -- -- 110 -- 95 % -- -- 05/11/221218 -- -- -- 108 -- 97 % -- -- 05/11/221217 -- -- -- 108 -- 98 % -- -- 05/11/221216 -- -- -- 105 -- 99 % -- -- 05/11/221215 -- -- -- 102 -- 98 % -- -- 05/11/221214 143/73 -- -- 108 -- 99 % -- -- 05/11/221213 -- -- -- (!) 113 -- 99 % -- -- 05/11/221212 -- -- -- 110 -- 99 % -- -- 05/11/221211 -- -- -- 105 -- 97 % -- -- 05/11/221210 -- -- -- 109 -- 98 % -- -- 05/11/221209 -- -- -- 106 -- 98 % -- -- 05/11/221208 -- -- -- 107 -- 96 % -- -- 05/11/221207 -- -- -- 109 -- 98 % -- -- 05/11/22 1207 -- -- -- 104 -- 98 % -- -- 05/11/22 1206 -- -- -- 103 -- 97 % -- -- 05/11/22 1205 -- -- -- 105 -- 98 % -- -- 05/11/22 1204 -- -- -- 105 -- 97 % -- -- 05/11/22 1203 -- -- -- 102 -- 99 % -- -- 05/11/22 120 -- -- -- 103 -- 99 % -- -- 05/11/22 120 -- -- -- 107 -- 99 % -- -- 05/11/22 1200 -- -- -- 104 -- 98 % -- -- 05/11/22 1159 -- -- -- 102 -- 98 % -- -- 05/11/22 1158 -- -- -- 101 -- 99 % -- -- 05/11/22 1036 -- -- -- (!) 112 16 -- -- -- 05/11/22 1035 -- -- -- 109 23 -- -- -- 05/11/22 1034 -- -- -- (!) 111 16 -- -- -- 05/11/22 1033 -- -- -- (!) 111 (!) 29 -- -- -- 05/11/22 1032 -- -- -- 107 17 -- -- -- 05/11/22 1031 -- -- -- (!) 113 22 -- -- -- 05/11/22 1030 -- -- -- 108 21 -- -- -- 05/11/22 1029 -- -- -- 110 18 -- -- -- 05/11/22 1028 -- -- -- (!) 113 20 -- -- -- 05/11/22 1027 -- -- -- (!) 111 19 -- -- -- 05/11/22 1026 -- -- -- 108 17 -- -- -- 05/11/22 1025 -- -- -- (!) 111 16 -- -- -- 05/11/22 1024 -- -- -- (!) 112 17 -- -- -- 05/11/22 1023 -- -- -- 110 15 -- -- -- 05/11/22 1022 -- -- -- (!) 112 21 -- -- -- 05/11/22 1021 -- -- -- 108 20 -- -- -- 05/11/22 1020 -- -- -- 108 21 -- -- -- 05/11/22 1019 -- -- -- 107 20 -- -- -- 05/11/22 1018 -- -- -- (!) 111 26 -- -- -- 05/11/22 1017 -- -- -- 107 20 -- -- -- 05/11/22 1016 -- -- -- 109 14 -- -- -- 05/11/22 1015 -- -- -- 109 16 -- -- -- 05/11/22 1014 -- -- -- 107 15 -- -- -- 05/11/22 1013 -- -- -- 105 21 -- -- -- (more content not included)... [facility] 05-12-2022 Note Patient: Myranda Connolly ick Vitals Value Taken Time BP 134/80 05/11/222014 Temp 36.4 ???C (97.5 ???F) 05/11/22 1920 Pulse 98 05/11/222014 Resp 22 05/11/22 2015 SpO2 100 05/12/22 0639 Post-Anesthesia Patient Progress Note Patient location during evaluation: floor Patient Visit: No Chart Reviewed: Yes Patient participation: complete - patient participated Mental Status: Baseline mental status Cardiovascular status: acceptable Respiratory status: acceptable Airway patency: patent Pain management: adequate Post-operative Nausea and Vomiting: No Temperature within normal limits: Yes Hydration status: acceptable Apparent anesthesia complications: Patient has no apparent anesthesia complications [facility] 05-12-2022 Note Problem: Fall Risk Goal: LTG-No falls Outcome: Progressing The patient is Moderately Stable - Low risk of patient condition declining or worsening The patient's goals for the shift include comfort The clinical goals for the shift include VSS [facility] 05-11-2022 Note Patient: Myranda toussaint Procedure Summary Date: 05/11/22 Room / Location: [facility] OPERATING ROOM 02 / [facility] Operating Room Anesthesia Start: 1611 Anesthesia Stop: 1926 Procedure: Right femur hemiarthroplasty (Right: Thigh - Leg Upper) Diagnosis: Closed fracture of neck of right femur, initial encounter ([facility]) (Closed fracture of neck of right femur, initial encounter ([facility]) [S72.001A]) Surgeons: Carlie Shine MD Responsible Provider: Fito aGrcia MD Anesthesia Type: general ASA Status: 3 Anesthesia Type: general Vitals Value Taken Time BP 134/80 05/11/222014 Temp 36.4 ???C (97.5 ???F) 05/11/221919 Pulse 98 05/11/222014 Resp 22 05/11/222014 SpO2 100 05/12/22 0638 Anesthesia Post Evaluation Patient location during evaluation: PACU Patient participation: complete - patient participated Level of consciousness: awake and alert Pain score: 1 Pain management: adequate Airway patency: patent Cardiovascular status: acceptable Respiratory status: acceptable Hydration status: acceptable No notable events documented. [facility] 05-11-2022 Note Airway Date/Time: 05/11/2022 4:24 PM Urgency: elective General Information and Staff Patient location during procedure: OR Anesthesiologist: Fito Garcia MD Resident/CUSTOMER SERVICE ASSOCIATE/CAA: Jose Martin Myers DO Performed: resident/CUSTOMER SERVICE ASSOCIATE/CAA Indications and Patient Condition Indications for airway management: anesthesia Spontaneous Ventilation: absent Sedation level: deep Preoxygenated: yes Mask difficulty assessment: 1 - vent by mask Final Airway Details Final airway type: endotracheal airway Successful airway: ETT Cuffed: yes Successful intubation technique: video laryngoscopy Endotracheal tube insertion site: oral Blade: Rubio Blade size: #3 ETT size (mm): 7.5 Cormack-Lehane Classification: grade I - full view of glottis Placement verified by: chest auscultation and capnometry Measured from: lips ETT to lips (cm): 22 Number of attempts at approach: 1 Number of other approaches attempted: 0 [facility] 05-11-2022 Note Patient: Myranda toussaint Procedure Information Date/Time: 05/11/22 1615 Procedure: Right femur hemiarthroplasty (Right: Thigh - Leg Upper) Location: [facility] OPERATING ROOM 02 / [facility] Operating Room Surgeons: Carlie Shine MD Relevant Problems Musculoskeletal (+) Closed fracture of neck of right femur (CMS/HCC) Other (+) Fall at home, sequela Past Medical History: Diagnosis Date ??? Anxiety ??? COPD (chronic obstructive pulmonary disease) (CMS/HCC) ??? Dementia (CMS/HCC) ??? Dysphagia mechanical soft diet with nectar thick liquids and instruction to drink after each bite of food ??? Femoral neck fracture (CMS/HCC) 05/10/2022 right side ??? GERD (gastroesophageal reflux disease) ??? Hyperlipidemia ??? Hypertension ??? Parkinson's disease (CMS/HCC) Past Surgical History: Procedure Laterality Date ??? HIP SURGERY Left Allergies Allergen Reactions ??? Sulfa (Sulfonamide Antibiotics) Other, Rash and Unknown She cannot reaction ??? Adhesive ??? Adhesive Tape-Silicones ??? Ciprofloxacin Other ??? Oxycodone-Acetaminophen ??? Sulfamethoxazole-Trimethoprim All sulfa anitibiotics All sulfa anitibiotics OB History No obstetric history on file. Estimated Date of Delivery: None noted. Patient Active Problem List Diagnosis ??? Closed fracture of left fibula and tibia ??? Fall at home, sequela ??? Closed fracture of neck of right femur (CMS/HCC) Scheduled Meds:[JUN Hold] acetaminophen, 650 mg, oral, q6h [JUN Hold] amitriptyline, 75 mg, oral, Daily ceFAZolin, 2 g, intravenous, Once [JUN Hold] cholecalciferol, 2,000 Units, oral, Daily [JUN Hold] cyclobenzaprine, 5 mg, oral, TID [JUN Hold] docusate sodium, 100 mg, oral, BID [Held by provider] enoxaparin, 30 mg, subcutaneous, BID [JUN Hold] levothyroxine, 75 mcg, oral, Daily before breakfast [JUN Hold] memantine, 28 mg, oral, Daily [JUN Hold] metoprolol tartrate, 25 mg, oral, BID [JUN Hold] pantoprazole, 40 mg, oral, Daily [JUN Hold] polyethylene glycol, 17 g, oral, BID [JUN Hold] venlafaxine XR, 75 mg, oral, Daily Continuous Infusions:D5 % and 0.9 % sodium chloride, 50 mL/hr, Last Rate: 50 mL/hr (05/11/22 0656) PRN Meds:.PRN medications: [JUN Hold] ALPRAZolam, [JUN Hold] HYDROmorphone, [JUN Hold] sennosides-docusate sodium, [COMPLETED] Insert peripheral IV AND [COMPLETED] Saline lock IV AND [JUN Hold] sodium chloride BP 157/77 Pulse 101 Temp 37.4 ???C (99.3 ???F) (Temporal) Resp 15 Ht 1.702 m (5' 7.01 ) Wt 68.9 kg (151 lb 14.4 oz) SpO2 100% BMI 23.78 kg/m??? Results from last 7 days Lab Units 05/10/22 2324 WBC AUTO 10*3/uL 8.01 HEMOGLOBIN g/dL 12.4 HEMATOCRIT % 37.2 PLATELETS AUTO 10*3/uL 130* Results from last 7 days Lab Units 05/10/22 2302 SODIUM mmol/L 139 POTASSIUM mmol/L 4.2 CHLORIDE mmol/L 106 CO2 mmol/L 27 BUN mg/dL 18 CREATININE mg/dL 0.84 CALCIUM mg/dL 9.1 GLUCOSE mg/dL 100 TTE pending 05/11/21 EKG sinus rhythm with marked sinus arrythmia 05/11/22 Type and screened Clinical information reviewed: Tobacco Allergies Meds Med Hx Surg Hx Fam Hx Soc Hx Physical Exam Airway Mallampati: II TM distance: >3 FB Neck ROM: full Cardiovascular - normal exam Rhythm: regular Rate: normal Dental (+) upper dentures Comments: No lower dentures/teeth Pulmonary - normal exam Abdominal - normal exam Anesthesia Plan ASA 3 general The patient is not a current smoker. Patient did not smoke on day of procedure. intravenous induction Postoperative administration of opioids is intended. Anesthetic plan and risks discussed with patient. Use of blood products discussed with patient who consented to blood products. Plan discussed with attending. Additional Equipment Requests [facility] 05-11-2022 Note Attempted screen and unable to see due to pt being off unit. [facility] 05-11-2022 Note Hospital Medicine Daily Progress Note - 05/11/2022 9:48 AM; Room: [address] [place] [address] Admission: 05/10/2022 7:28 PM; Length of stay: 1 days THE HOSPITALIST TEAM PREFERS TO USE [employer] CHAT FOR COMMUNICATION 7AM-7PM. IF I DO NOT RESPOND WITHIN 15 MINUTES, PLEASE PAGE ME/CALL THROUGH THE BICYCLE ASSEMBLER. FROM 7PM-7AM, PLEASE PAGE [phone](COVR) Code Status: Full Code Discharge Destination: assisted Expected Discharge: 3-5 days Overview Patient is seen for management for fall and right femoral neck fracture Subjective No acute overnight events reported per staff, patient is a poor historian and is unable to provide any history. Physical Exam Visit Vitals BP 114/66 Pulse 107 Temp 36.9 ???C (98.4 ???F) Resp 21 Intake/Output Summary (Last 24 hours) at 05/11/2022 0948 Last data filed at 05/11/2022 0656 Gross per 24 hour Intake 394.17 ml Output 250 ml Net 144.17 ml Physical Exam HENT: Head: Normocephalic. Eyes: Pupils: Pupils are equal, round, and reactive to light. Cardiovascular: Rate and Rhythm: Normal rate. Pulmonary: Effort: Pulmonary effort is normal. Abdominal: General: Bowel sounds are normal. Musculoskeletal: General: Normal range of motion. Cervical back: Normal range of motion. Skin: Findings: Bruising present. Neurological: Mental Status: She is alert. She is disoriented. Estimated body mass index is 23.93 kg/m??? as calculated from the following: Height as of this encounter: 1.702 m (5' 7 ). Weight as of this encounter: 69.3 kg (152 lb 12.5 oz). Active Inpatient Problems Principal Problem: Fall at home, sequela Active Problems: Closed fracture of neck of right femur ([facility]) Assessment and Plan #Traumatic fall: #Right femoral neck fracture -Orthopedic team on board for possible ORIF today. -N.p.o. past midnight -Eliquis is held for procedure today. #Advanced dementia: -Home medication olanzapine -Consulting psychiatry team for any further recommendation to adjust her home medication #Hypertension: -Metoprolol tartrate 25 mg twice daily, home medication continued #Gastroesophageal reflux disease: -Pantoprazole Home medication continued 40 daily VTE Prophylaxis: Lovenox Scheduled Meds acetaminophen, 650 mg, oral, q6h cyclobenzaprine, 5 mg, oral, TID docusate sodium, 100 mg, oral, BID [Held by provider] enoxaparin, 30 mg, subcutaneous, BID metoprolol tartrate, 12.5 mg, oral, BID pantoprazole, 40 mg, oral, Daily polyethylene glycol, 17 g, oral, Daily prazosin, 1 mg, oral, Nightly D5 % and 0.9 % sodium chloride, 50 mL/hr, Last Rate: 50 mL/hr (05/11/22 0656) Pertinent Investigations Hematology: Results from last 7 days Lab Units 05/10/22 2324 WBC AUTO 10*3/uL 8.01 HEMOGLOBIN g/dL 12.4 HEMATOCRIT % 37.2 MCV fL 91.4 PLATELETS AUTO 10*3/uL 130* Chemistry: Results from last 7 days Lab Units 05/10/22 2302 SODIUM mmol/L 139 POTASSIUM mmol/L 4.2 CHLORIDE mmol/L 106 CO2 mmol/L 27 BUN mg/dL 18 CREATININE mg/dL 0.84 GLUCOSE mg/dL 100 CALCIUM mg/dL 9.1 No lab exists for component: AFIO2, APHT, APCOT, APOT, ATCO2, CK, ALB, IBILI Historical Values: (Includes values prior to this admission) Lab Results Component Value Date TSH 0.03 (L) 05/10/2022 FREET4 1.38 05/10/2022 HDL 50 05/10/2022 LDL 148 05/10/2022 No results found for: [id number], IRON, TIBC, C3, C4, AISHWARYA, CANCA, ASO, PSA, CEA, CA125, CA199, AFP, CA153 Imaging ECG 12 lead Sinus rhythm with marked sinus arrythmia Otherwise normal ECG When compared with ECG of 06-NOV-2021 05:36, No significant change was found CT cervical spine wo IV contrast Narrative: CT CERVICAL SPINE WO IV CONTRAST 05/11/2022 12:00 AM CLINICAL INDICATIONS: Neck pain, fall. TECHNIQUE: Multi detector CT axial slices of the cervical spine are obtained. Coronal and sagittal reformats obtained. All CT scans at this facility use dose modulation, iterative reconstruction, and/or weight based dosing when appropriate to reduce radiation dose to as low as reasonably achievable COMPARISON: 11/21/2021. FINDINGS: No acute fracture or malalignment of cervical spine. Intact dens. Normal atlantodental interval. Unremarkable prevertebral soft tissues. Multilevel facet hypertrophy. Atlantodental spurring. Biapical pleural thickening, which was seen on prior chest radiograph. 3-4 mm anterior right upper lobe nodule axial image 75 series 3. Additional 6 mm groundglass nodule anterior upper lobe and 3 mm solid nodule anterior upper lobe axial images 64 and 66, respectively. A 1.5 cm low-density nodule right thyroid. Impression: 1. No acute fracture or malalignment of cervical spine. MRI or flexion/extension radiographs can be considered if concerns for occult or ligamentous injury. 2. Incidental 1.5 cm right thyroid nodule, recommend thyroid ultrasound in the outpatient setting. 3. There is a 3-4 mm anterior right upper lobe pulmonary nodule. Additional (more content not included)... [facility] 05-11-2022 Note PHYSICAL THERAPY NONI CARNEY History of Present Illness 81 y/o female presenting as transfer from [facility] for fall and R hip fracture. Per report, she fell at her assisted and had right hip pain, she was found on x-ray and CT at outside facility to have a right femoral neck fracture with no other injuries. Past Medical History Advanced vascular dementia, HTN, anxiety, COPD, GERD, L hip ORIF, L tibia IM nikhil, deafness, Parkinson's dz, peripheral neuropathy, hypothyroidism, LAURITA, thrombocytopenia. Current Diagnoses R femoral neck fracture Resident at [facility] Pt to have surgery for R femoral neck fracture. Will Attempt eval 05/12 as pt's medical status permits. Catalina Lemus PT, MPT [facility] Acute Rehabilitation [facility] 05-11-2022 Note Occupational Therapy Cancel Note Reason: Surgery pending: scheduled for R femur hemiarthroplasty this date Testing: Refused: Medically Unstable: Bed Rest: Dialysis: Awaiting clarification of precautions: Intubated/Sedated: Other: OT will re-attempt as able. [facility] 05-11-2022 Note Problem: Fall Risk Goal: LTG-No falls Outcome: Progressing The patient is Moderately Stable - Low risk of patient condition declining or worsening The patient's goals for the shift include comfort The clinical goals for the shift include Stable vital signs, comfort, and safety [facility] 05-11-2022 Note Pharmacy completed a medication reconciliation for Myranda Yanes. Patient is a 81 y.o. year old female. Patient has allergies to: Sulfa (sulfonamide antibiotics), Adhesive, Adhesive tape-silicones, Ciprofloxacin, Oxycodone-acetaminophen, and Sulfamethoxazole-trimethoprim Medication list was obtained from patient's nursing facility records ([facility]). Home medication list has been updated. Please call pharmacy with any questions. Thank you! Thanks, Elisha Painter, PharmD, 05/10/22 [facility] 03-30-2022 Note *[facility] Post-Op F/U Reported by patient. Location: left Associated Symptoms: no warmth; no ecchymosis; no drainage; no swelling; no fever; no chills [id number] IM LT TIBIA [id number] LT HIP NAIL DATE OF SURGERY: 11/06/2021 SURGEON: Jaskaran Beal M.D. ASSISTANTS: 1. Ankit Tobias M.D. 2. Jus Yancey M.D. 3. Manjinder Davis M.D. PREOPERATIVE DIAGNOSIS: Left intertrochanteric fracture. POSTOPERATIVE DIAGNOSIS: Left intertrochanteric fracture. PROCEDURE: Left cephalomedullary nail. ANESTHESIA: General. BLOOD LOSS: 100 mL. FLUIDS: Per anesthesia records. SPECIMENS: None. ROS None recorded. Physical Exam HEENT atraumatic Neck Trachea midline Lungs no dyspnea Skin intact Post Operative Exam: General Appearance: no swelling, tenderness, or warmth and wound clean and dry and neurovascular intact. Procedure Documentation None recorded. Assessment / Plan FWB LLE F/U in 8 weeks with new xrays 1. Fracture of tibia S82.A: Unspecified fracture of shaft of left tibia, initial encounter for closed fracture [facility] 02-23-2022 Note *[facility] Post-Op F/U Reported by patient. Location: left Associated Symptoms: no warmth; no ecchymosis; no drainage; no swelling; no fever; no chills [id number] IM LT TIBIA [id number] LT HIP NAIL DATE OF SURGERY: 11/06/2021 SURGEON: Jaskaran Beal M.D. ASSISTANTS: 1. Ankit Tobias M.D. 2. Jus Yancey M.D. 3. Manjinder Davis M.D. PREOPERATIVE DIAGNOSIS: Left intertrochanteric fracture. POSTOPERATIVE DIAGNOSIS: Left intertrochanteric fracture. PROCEDURE: Left cephalomedullary nail. ANESTHESIA: General. BLOOD LOSS: 100 mL. FLUIDS: Per anesthesia records. SPECIMENS: None. ROS None recorded. Physical Exam Post Operative Exam: General Appearance: no swelling, tenderness, or warmth and wound clean and dry and neurovascular intact. Procedure Documentation None recorded. Assessment / Plan 50% PWB LLE F/U in 4 weeks with new xrays 1. Fracture of tibia S82.A: Unspecified fracture of shaft of left tibia, initial encounter for closed fracture [facility] 02-23-2022 Note Ft hip [facility] 01-25-2022 Note *[facility] Post-Op F/U Reported by patient. Location: left Associated Symptoms: no warmth; no ecchymosis; no drainage; no swelling; no fever; no chills [id number] IM LT TIBIA [id number] LT HIP NAIL DATE OF SURGERY: 11/06/2021 SURGEON: Jaskaran Beal M.D. ASSISTANTS: 1. Ankit Tobias M.D. 2. Jus Yancey M.D. 3. Manjinder Davis M.D. PREOPERATIVE DIAGNOSIS: Left intertrochanteric fracture. POSTOPERATIVE DIAGNOSIS: Left intertrochanteric fracture. PROCEDURE: Left cephalomedullary nail. ANESTHESIA: General. BLOOD LOSS: 100 mL. FLUIDS: Per anesthesia records. SPECIMENS: None. ROS None recorded. Physical Exam Post Operative Exam: General Appearance: no swelling, tenderness, or warmth and wound clean and dry and neurovascular intact. Procedure Documentation None recorded. Assessment / Plan Dr Beal was present and provided plan of care. 10% PWB LLE F/U in 4 weeks with new xrays 1. Fracture of tibia S82.A: Unspecified fracture of shaft of left tibia, initial encounter for closed fracture [facility] 12-13-2021 Note MR#: [id number] I [facility] Pt. Name: Myranda Yanes Admitted: 11/21/2021 Discharged: 12/01/2021 Date of : 1940 Physician: Jaskaran Beal M.D. DISCHARGE SUMMARY PRIMARY DIAGNOSIS: Left tibial shaft fracture. HOSPITAL COURSE: Myranda is a 81-year-old female known well to the Orthopedic Trauma Service after recently undergoing a left hip cephalomedullary nail. The patient subsequently was at a alf facility and fell and fractured her left tibia. The patient proceeded to return to the operating room for left tibial intramedullary nailing. Please see detailed operative report for patient information regarding procedure. The patient was then subsequently admitted to the floor for monitoring as well as for serial compartment checks and for IV antibiotics. The patient remained stable during her hospital course. The patient was subsequently discharged back to alf facility with appropriate DVT prophylaxis as well as pain medication. The patient will follow up appropriately as scheduled. Electronically Signed by: Jaskaran Beal M.D. 12/14/2021 05:29 P Jaskaran Beal M.D. I personally saw this patient on the day of the encounter, performed the mora portion(s) of the service and participated in the management and confirm the resident's documentation. Please note there may be an additional personal documentation from me. Date Dict: 12/13/2021/10:09 Lisset/Manjinder Davis MD Date Trans: 12/13/2021 11:15 Lisset/lalo [id number] cc: Whitney Goodman M.D. [address] [id number] [facility] 11-13-2021 Note MR#: [id number] I [facility] Pt. Name: Myranda Yanes Admitted: 11/06/2021 Discharged: 11/12/2021 Date of : 1940 Physician: Julieth Young MD DISCHARGE SUMMARY The patient was not discharged on November 09 due to pending placement. The patient was discharged on November 12. For detailed hospital course, please refer to discharge summary dated November 09. Electronically Signed by: Julieth Young MD 11/15/2021 02:44 P Julieth Young MD Date Dict: 11/13/2021/03:19 P/Julieth Young MD Date Trans: 11/13/2021 04:04 P/mmo [id number] cc: Whitney Goodman M.D. [address], [facility] [place] [phone] [facility] 11-09-2021 Note MR#: [id number] I [facility] Pt. Name: Myranda Yanes Admitted: 11/06/2021 Discharged: 11/12/2021 Date of : 1940 Physician: Carter Arvizu MD DISCHARGE SUMMARY DIAGNOSIS AT ADMISSION: Fall with left hip fracture. DIAGNOSES AT DISCHARGE: 1. Left hip fracture, status post cortical medullary nailing. 2. Postop blood-loss anemia, status post 1 PRBC transfusion. 3. Dementia. 4. Parkinson disease. 5. Chronic obstructive pulmonary disease. 6. Urinary tract infection. HOSPITAL COURSE: This is a 81-year-old female who came to the hospital after sustaining a mechanical fall with left femoral fracture, underwent intramedullary nailing, postoperatively she developed anemia with hemoglobin dropping to 7.4 from 12 g on admission, 1 PRBC was given. Hemoglobin stable since then with no hemodynamic instability. No chest pain or shortness of breath. No nausea, vomiting, or diarrhea. Pain is also well controlled. PHYSICAL EXAMINATION AT THE TIME OF DISCHARGE: VITAL SIGNS: The patient's blood pressure 139/67 mmHg, heart rate 94 per minute, temperature 98 degree Fahrenheit, respirations 16 per minute. EYES: No pallor or jaundice. ENT: No nasal discharge. RESPIRATORY: Bilateral air entry. CARDIOVASCULAR: S1, S2. ABDOMEN: Soft, nontender. MEDICATIONS: Reviewed, reconciled. DISCHARGE INSTRUCTIONS: The patient will be discharged to the skilled facility for physical, occupational therapy. Continue oral antibiotic to complete a 5-day course of UTI. Continue DVT prophylaxis with Lovenox for a total of 30 days. CONDITION ON DISCHARGE: Stable. Time spent on discharge process 35 minutes. Electronically Signed by: Carter Arvizu MD 11/17/2021 07:43 A Carter Arvizu MD Date Dict: 11/09/2021/10:30 A/Carter Arvizu MD Date Trans: 11/09/2021 10:53 A/lalo [id number] cc: Whitney Goodman M.D. [address] [facility] [id number] [facility] 04-06-2021 Note Chief Complaint New Patient - self referral - ongoing deep cough 3-4 months History of Present Illness This is 80-year-old female with chronic cough and here for evaluation. She has been having this cough for over couple years its been worse over last 3 months, mostly dry no productive sputum. Her cough is paroxysmal with attacks and cannot stop. She is not aware of any triggers. She denies wheezing, there is dyspnea on exertion occasionally. No history of smoking. She denies sinus disease or postnasal drip. She denies acid reflux and has been taking Protonix. No recent chest x-ray or PFTs. She was tried on multiple cough medications without improvement. She was at some point in the past on albuterol with only mild improvement Review of Systems ROS - Clinical Support Cardiopulmonary Symptoms: Shortness of breath Pain Symptoms: No 12 point system review was done and negative except what mentioned in HPI Physical Exam Vitals & Measurements HR: 76(Peripheral) RR: 18 BP: 178/82 SpO2: 99% HT: 172.0 cm HT: 172 cm WT: 78.4 kg WT: 78.4 kg BMI: 26.5 General: alert, no acute distress Skin: warm, dry Head: no trauma, normocephalic Neck: Trachea midline, no adenopathy, no tenderness Eye: normal conjunctiva, sclera clear ENMT: TM's clear, oral mucosa moist, no pharyngeal erythema or exudate Cardiovascular: regular rate and rhythm, normal peripheral perfusion Respiratory: Lungs CTA, respirations non labored Chest wall: no deformity. Gastrointestinal: soft, non distended, no tenderness, no guarding. Extremities: no deformity, no trauma Neurological: oriented LOC appropriate for age, CN II-XII intact, motor strength equal & normal bilaterally speech normal Psychiatric: cooperative, Assessment/Plan 1. Chronic cough (R05.3: Chronic cough) At this point I need to obtain pulmonary function test to evaluate for any obstructive lung disease versus interstitial lung disease I need chest x-ray. Based on her system upper airway cough syndrome is less likely and acid reflux is possible but she is already on medication and treatment so less likely to be the cause. Will reevaluate after testing Ordered: Pulmonary Function Testing XR Chest 2 Views Follow-up No qualifying data available Problem List/Past Medical History Ongoing No qualifying data Historical No qualifying data Medications No active medications Allergies Tape (Rash) ciprofloxacin (Muscle weakness) sulfa drugs (Hives) [facility] Comment on above: Result Comment: Elec tronically Signed By: Kalpana ALDANA, Winston X\.br\Date and Time Signed: 04/06/21 17:14 EST 06-12-2020 Note Patient Outreach ([place] [facility]) ------ MYRANDA YANES ([id number]) 1940 F Date Time Provider Department 06/12/20 MILA LEMUS During your visit today, we recorded the following information about you: Allergies As of Date: 06/12/2020 Noted Allergy Reaction SULFA (SULFONAMIDE ANTIBIOTICS) 06/23/2015 16 - Unknown Comments: She cannot reaction Date Reviewed: 01/08/2019 Reviewed by: Nataliia Adams Ma - Fully Assessed Order(s):SARS-COVID VACCINE 1ST DOSE APPT [[id number]] Order #: [id number] FUTURE Prescriptions as of 06/12/2020 Sig: PANTOPRAZOLE 40 MG TABLET,DEL* Take 40 mg by mouth once drake* SUCRALFATE 1 GRAM TABLET Take 1 g by mouth four times * CARBIDOPA 10 MG-LEVODOPA 100 * Take 1 tablet by mouth three * DESVENLAFAXINE SUCCINATE ER 5* Take 50 mg by mouth once drake* MECLIZINE 25 MG TABLET Take 25 mg by mouth three tony* CHOLECALCIFEROL (VITAMIN D3) * Take 5,000 Units by mouth onc* OXYBUTYNIN CHLORIDE ER 10 MG * Take 10 mg by mouth once drake* FUROSEMIDE 20 MG TABLET Take 20 mg by mouth twice ryan* PRIMIDONE 50 MG TABLET Take 50 mg by mouth four time* CLONAZEPAM 0.5 MG TABLET Take 1 tablet by mouth twice * Problem List As Of Date 06/12/2020 Noted Resolved Depression, major, recurrent, moderate (HCC) [F*06/23/2015 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*06/23/2015 Cervicogenic headache [R51.9] 01/08/2019 Cervicalgia [M54.2] 01/08/2019 Altered gait [R26.9] 01/08/2019 Dizziness and giddiness [R42] 01/08/2019 Recurrent major depression in partial remission*01/08/2019 Polypharmacy [Z79.899] 01/08/2019 Eczema [L30.9] 01/08/2019 Encounter Status:Closed by [employer], PRODUSER on 06/16/20 [facility] Evaluation note Diagnosis Cerebrovascular accident (CVA), unspecified mechanism (HCC) Memory problem Memory loss Parkinson's disease (HCC) Paralysis agitans documented in this encounter [facility] [employer] Phone: Summary Purpose Family History No Family History Records FoundNo Family History Records FoundNo Family History Records FoundNo Family History Records FoundNo Family History Records FoundNo Family History Records FoundNo Family History Records FoundNo Family History Records Found Advance Directives No Advanced Directives Records FoundNo Advanced Directives Records FoundNo Advanced Directives Records FoundNo Advanced Directives Records FoundNo Advanced Directives Records FoundNo Advanced Directives Records FoundNo Advanced Directives Records FoundNo Advanced Directives Records Found Additional Source Comments INFORMATION SOURCE (unrecogn ized section and content) DATE CREATED AUTHOR 10/03/2020 [facility] DATE CREATED AUTHOR AUTHOR'S ORGANIZ ATION 10/11/2020 [facility] DATE CREATED AUTHOR AUTHOR'S ORGANIZ ATION 11/14/2020 [facility] DATE CREATED AUTHOR AUTHOR'S ORGANIZ ATION 05/26/2021 [facility] DATE CREATED AUTHOR AUTHOR'S ORGANIZ ATION 07/19/2021 [facility] DATE CREATED AUTHOR AUTHOR'S ORGANIZ ATION 12/29/2021 [facility] DATE CREATED AUTHOR AUTHOR'S ORGANIZ ATION 08/22/2022 [facility] DATE CREATED AUTHOR AUTHOR'S ORGANIZ ATION 11/20/[address] [facility] Reason for Visit (unrecogniz ed section and content) Status Reason Specialty Diagnoses / Procedures Referre d By Contact Referred To Contact Closed Radiology Diagnoses Cerebrovascular accident (CVA), unspecified mechanism (HCC) Memory problem Parkinson's disease (HCC) Procedures MRI BRAIN WO CONTRAST MRI BRAIN W WO CONTRAST Dolores Chapa PA-C [address] [facility] [address] [place] [id number] Status Reason Specialty Diagnoses / Procedures Re ferred By Contact Referred To Contact Closed Sleep Center Diagnoses Fatigue, unspecified type Procedures Baseline Diagnostic Sleep Study Dolores Chapa PA-C [id number] [facility] [address] [place] [address] FOR RECORDS PERTAINING TO PATIENTS WHO ARE OR HAVE BEEN ENROLLED IN A CHEMICAL DEPENDENCY/SUBSTANCEABUSE PROGRAM, SOME INFORMATION MAY BE OMITTED. This clinical summary was aggregated from multiple sources. Caution should be exercised in using it in the provision of clinical care. This summary normalizes information from multiple sources, and as a consequence, information in this document may materially change the coding, format and clinical context of patient data. In addition, data may be omitted in some cases. CLINICAL DECISIONS SHOULD BE BASED ON THE PRIMARY CLINICAL RECORDS. [employer] provides no warranty or guarantee of the accuracy or completeness of information in this document.
[2023-11-04 08:44] LABS: Basophils Percent Auto 0.1 % (0.2-2.0); Eosinophils Absolute Auto 0.2 10^3/uL (0.0-0.7); Eosinophils Percent Auto 2.5 % (0.9-7.0); Hematocrit 39.1 % (36.0-48.0); Hemoglobin 12.5 g/dL (12.0-16.0); Immature Granulocytes Abs Auto 0.03 10^3/uL (0.00-0.03); Immature Granulocytes Pct Auto 0.3 % (0.0-0.5); Lymphocytes Absolute Auto 2.8 10^3/uL (1.2-3.8); Lymphocytes Percent Auto 31.6 % (20.5-60.0); Mean Corpuscular Hemoglobin 29.7 pg (26.7-34.0); Mean Corpuscular Volume 92.9 fL (81.0-99.0); Mean Platelet Volume 9.9 fL (9.5-13.5); Monocytes Absolute Auto 0.8 10^3/uL (0.3-0.8); Monocytes Percent Auto 9.3 % (1.7-12.0); Neutrophils Percent Auto 56.2 % (43.0-75.0); Platelet Count 185 10^3/uL (150-450); Red Blood Count 4.21 10^6/uL (4.20-5.40); Red Cell Distribution Width 13.2 % (11.0-15.0); White Blood Count 8.9 10^3/uL (4.0-11.0)
[2023-11-04 09:33] LABS: Alanine Aminotransferase 15 U/L (14-59); Albumin Globulin Ratio 0.9; Albumin Level 3.3 g/dL (3.4-5.0); Alkaline Phosphatase 76 U/L (46-116); Anion Gap 11.4; Aspartate Amino Transferase 15 U/L (15-37); BUN Creatinine Ratio 19.4; Bilirubin Total 0.7 mg/dL (0.2-1.0); Calcium 8.7 mg/dL (8.5-10.1); Carbon Dioxide 30.7 mmol/L (21.0-32.0); Chloride 105 mmol/L (98-107); Chol HDL Ratio 3.8; Cholesterol 262 mg/dL (<=200); Estimated GFR (African America >60 (>=60); Estimated GFR (Non-African Ame 54 (>=60); Free T3 2.09 pg/mL (2.18-3.98); Globulin 3.8 g/dL; Glucose 87 mg/dL (74-106); HDL Cholesterol 69 mg/dL (40-60); Potassium 3.1 mmol/L (3.5-5.1); Sodium 144 mmol/L (136-145); Thyroid Stimulating Hormone 1.305 uIU/mL (0.358-3.740); Total Protein 7.1 g/dL (6.4-8.2); Triglycerides 112 mg/dL (<=150); VLDL CHOLESTEROL 22.4 mg/dL
[2023-11-04 10:30] LABS: Estimated Average Glucose 103 mg/dL; Glycohemoglobin A1C 5.2 % (4.5-6.2)
[2023-11-04 11:18] LABS: Free T4 1.04 ng/dL (0.76-1.46)
== END 2023-11-04 08:32 | disposition home or self-care (01) ==
LOC: LAB 08:31
PROVIDERS: PCP Family Medicine; Visit Provider Family Medicine
DX: Z00.00 Encounter for general adult medical examination without abnormal findings (principal); E78.00 Pure hypercholesterolemia, unspecified; I10 Essential (primary) hypertension; E03.9 Hypothyroidism, unspecified
CPT/HCPCS: 36415; 80053; 80061; 83036; 84439; 84443; 84481; 85025

== ENCOUNTER 2023-11-29 08:59 | Outpatient (REF) | payer MEDICARE, SELFPAY ==
--- OUTSIDE RECORDS SUMMARY | 2023-11-29 09:15 | XMS_ITS | CCD ---
Author Organization [place] [facility] Team Providers Care Watch Mechanic Name Role Phone Whitney Goodman MD Primary Care Provider [phone] DOLORES CHAPA Referring Unavailable WHITNEY GOODMAN Primary Care Unavailable WHITNEY GOODMAN Primary Care Unavailable DOLORES CHAPA Referring Unavailable WHITNEY GOODMAN Primary Care Unavailable UNKNOWN, PHYSICIAN Referring Unavailable JULIETH YOUNG Attending Unavailable BINA MOSCOSO Admitting Unavailable WHITNEY GOODMAN Primary Care Unavailable EMERGENCY, BELLVUE Referring Unavailable YANICK HEALY Admitting Unavailable YANICK HEALY Attending Unavailable [...] JAZZY, DR МАРИЯ Givens Consulting Unavailable REINA CONWAY Consulting Unavailable Мария Whittington Consulting Unavailable HARVEYY ., DR OLSON Attending Unavailable HOY ., DR OLSON Primary Care Unavailable HOVern ., DR OLSON Consulting Unavailable HOVern ., DR OLSON Admitting Unavailable ZIEBCORNELIUS, DR [...] Unavailable AUBREY PANTOJA Attending Unavailable YENIFER, DR DIAAN Villafuerte Consulting Unavailable AUBREY PANTOJA Admitting Unavailable RONDA, DR NGOC Villafuerte Consulting Unavailable AUBREY PANTOJA Consulting Unavailable JOHNATHON, LEESA Consulting Unavailable JUANITO ADAME Consulting Unavailable SHINE, CHRISTOPHER Referring Unavailable SHINE, CHRISTOPHER Referring Unavailable DEVAN, GEORGE A Referring Unavailable SHINE, CHRISTOPHER Referring Unavailable SHINE, CHRISTFORREST Attending Unavailable DEVAN, GEORGE A Attending Unavailable DEVAN, GEOREG A Attending Unavailable SHINE, CHRISTOPHER Attending Unavailable [...] Acetaminophen / oxyCODONE Drug Allergy 09-25-19 21 [facility] Adhesive Tape (2 sources) Adhesive Tape Substance Allergy 10-10-19 21 [facility] Quinolones (antibiotic) (2 sources) Ciprofloxacin Drug Allergy 10-10-19 21 Other (See Comments) [facility] Sulfamethoxazole / Trimethoprim (2 sources) Sulfamethoxazole / Trimethoprim Drug Allergy 10-10-19 21 [facility] Sulfonamides (antibiotic) (2 sources) Sulfonamides (Antibiotic) Drug Allergy 10-10-19 21 [facility] (2 sources) Acetaminophen / oxyCODONE Drug Allergy 09-25-19 21 [facility] Repository (3 sources) Adhesive agent; Translations: [ADHESIVE] Drug allergy (disorder) 06-11-19 14 [facility] Repository (2 sources) Ciprofloxacin Drug Allergy 09-29-19 17 [facility] Repository (2 sources) Penicillin Drug Allergy 11-22-19 22 [facility] Repository (2 sources) Sulfonamides (Antibiotic) Drug allergy (disorder) 12-21-19 12 [facility] Repository (1 source) Acetaminophen / oxyCODONE; Translations: [OXYCODONE-ACETAMIN OPHEN] Drug Allergy 09-25-19 21 [facility] Repository (1 source) Ciprofloxacin; Translations: [CIPROFLOXACIN] Drug Allergy 10-10-19 21 [facility] Repository (1 source) Sulfamethoxazole / Trimethoprim; Translations: [SULFAMETHOXAZOLE-T RIMETHOPRIM] Drug Allergy 10-10-19 21 [facility] Repository (1 source) Sulfonamides (Antibiotic); Translations: [SULFA (SULFONAMIDE ANTIBIOTICS)] Propensity to adverse reactions to drug (disorder) 04-19-20 14 [facility] Repository (1 source) ADHESIVE TAPE-SILICONES; Translations: [ADHESIVE TAPE-SILICONES] Propensity to adverse reactions to drug (disorder) 10-10-19 21 [facility] Repository NEGATED: Highlighted row has been ruled out!Unclassified (2 sources) Other Propensity to adverse reactions 06-23-19 16 Rash, Other (See Comments) [facility] Medications Current Medications Medication Drug Class(es) Dates [...] hydrochloride 5 mg oral tablet (1 source) Z-pzfuil-O-aspartate Receptor Antagonist Start: 10-20-2020 take 1 tablet [...] current use of drug therapy; 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] Onset: 10-15-2020 11-13-2020 Episodic [...] aftercare (1 source) Polypharmacy ; 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] Onset: 9 11-05-2020 Episodic Other aftercare (1 source) 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; Translations: [OTH [facility] CURRENT DRUG THERAPY] Onset: 3 Episodic Other [...] Interpretation Reference Range Facility Follow-Upon 11-19-2022 Follow-Up [id number] Fausto Yanes 1940 F Date Provider Department Center 11/19/2022 CARLIE MITCHELL MP ORTHO MPORTHO Family History Family history unknown: Yes Level of Service:06737 HI OFFICE/OUTPATIENT ESTABLISHED LOW MDM 20-29 MIN (GC) Reason for Visit and Comments: Follow-up [126271] Follow-up [322053] Normal [facility] 36on 10-26-2022 36 Lvm to call office back to reschedule appointment on 11/12/2022- please schedule on 11/19/2022 Normal [facility] CULTURE URINEon 08-20-2022 CULTURE URINE Normal [facility] Comment on above: Performed By: #### U RCX ####[facility] G[address]vw[address] [place], [place] [address]Dr. Arnoldo Taylor UA (CLEAN/CATCH) SECURED ENTRANCE MONITOR/MICRO I F IND.on 08-18-2022 Bilirubin Ql (U) Negative Normal NEGATIVE [facility] Comment on above: Performed By: #### U MICRO, UACSIND ####[facility] Mkavminkiv[address] [place], [place] [address]DrTye Taylor Clarity (U) CLEAR Normal CLEAR [facility] Comment on above: Performed By: #### U MICRO, UACSIND ####[facility] [address] [place] [address]Dr. Arnoldo Taylor Color (U) LT. YELLOW Normal YELLOW [facility] Comment on above: Performed By: #### U MICRO, UACSIND ####[facility] N[address]ben[address] [place] [address]Dr. Arnoldo Taylor Glucose Ql (U) Negative Normal NEGATIVE [facility] Comment on above: Performed By: #### U MICRO, UACSIND ####[facility] Synucvdfzh[address] [place], [place] [address]Dr. Arnoldo Taylor Hemoglobin Ql (U) TRACE-INTACT Abnormal NEGATIVE [facility] Comment on above: Performed By: #### U MICRO, UACSIND ####[facility] Vlmvytdbsf[address] [place], [place] [address]Dr. Arnoldo Taylor Ketones Ql (U) Negative Normal NEGATIVE [facility] Comment on above: Performed By: #### U MICRO, UACSIND ####[facility] Xppvysqkxa[address] [place], [place] [address]Dr. Arnoldo Taylor LEUKOCYTES LARGE Abnormal NEGATIVE [facility] Comment on above: Performed By: #### U MICRO, UACSIND ####[facility] Aybzvpwtrs3[address] [place], [place] [address]Dr. Arnoldo Taylor Nitrite Ql (U) Positive Abnormal NEGATIVE [facility] Comment on above: Performed By: #### U MICRO, UACSIND ####[facility] Xhcexzcdah[address] [place], [place] [address]Dr. Arnoldo Taylor pH (U) 5.5 [pH] Normal 5-9 [facility] Comment on above: Performed By: #### U MICRO, UACSIND ####[facility] Mruhxoqeca[address] [place], [place] [address]Dr. Arnoldo Taylor SPEC GRAVITY 1.010 Normal 1.005-<=1.025 [facility] Comment on above: Performed By: #### U MICRO, UACSIND ####[facility] Ozktmyyfho[address] [place], [place] [address]Dr. Arnoldo Taylor UA PROTEIN Negative Normal NEGATIVE/ TRACE [facility] Comment on above: Performed By: #### U MICRO, UACSIND ####[facility] [address]oz[address] [place] [address]Dr. Arnoldo Taylor UR MICRO IND INDICATED Normal [facility] Comment on above: Performed By: #### U MICRO, UACSIND ####[facility] [address]ie[address] [place] [address]Dr. Arnoldo Taylor Urobilinogen Qn (U) 0.2 {Adrienne'U}/dL Normal 0.2 - 1. 0 [facility] Comment on above: Performed By: #### U MICRO, UACSIND ####[facility] Ixkpjrlbej[address] [place], [place] [address]Dr. Arnoldo Taylor URINE MICROSCOPIC ONLYon BACTERIA SMALL Abnormal NONE SEEN [facility] Comment on above: Performed By: #### U MICRO, UACSIND ####[facility] Vzcbgkfztf[address] [place], [place] [address]Dr. Arnoldo Taylor Bacteria identified Cx Nom (U) INDICATED Normal [facility] Comment on above: Performed By: #### U MICRO, UACSIND ####[facility] Bsaluuvwlp[address] [place], [place] [address]Dr. Arnoldo Taylor CAST NONE SEEN Normal NONE SEEN [facility] Comment on above: Performed By: #### U MICRO, UACSIND ####[facility] Vczirsvxhs[address] [place], [place] [address]Dr. Arnoldo Taylor Crystals LM Nom (Urine sed) NONE SEEN Normal NONE SEEN [facility] Comment on above: Performed By: #### U MICRO, UACSIND ####[facility] Ybwncpfbqm[address] [place], [place] [address]Dr. Arnoldo Taylor Epithelial cells LM Ql (Urine sed) FEW Abnormal NONE SEEN /RARE [facility] Comment on above: Performed By: #### U MICRO, UACSIND ####[facility] [address]ysxm[address] [place] [address]Dr. Arnoldo Taylor MUCOUS NONE SEEN Normal NONE SEEN [facility] Comment on above: Performed By: #### U MICRO, UACSIND ####[facility] X[address]ctvueow27[address] [place], [place] [address]Wx. Arnoldo Taylor RBC 0-2 Normal 0-2 [facility] Comment on above: Performed By: #### U MICRO, UACSIND ####[facility] [address] [place] [id number]. Arnoldo Taylor WBC 5-10 Abnormal NONE SEEN [facility] Comment on above: Performed By: #### U MICRO, UACSIND ####[facility] [address] [place] [id number]. Arnoldo Taylor Follow-Upon 07-02-2022 Follow-Up [id number] Fausto Yanes 1940 F Date Provider Department Center 07/02/2022 CARLIE MITCHELL MP ORTHO MPORTHO Family History Family history unknown: Yes Level of Service:35363 HI POSTOP FOLLOW UP VISIT RELATED TO ORIGINAL PX Reason for Visit and Comments: Follow-up [178846] Follow-up [950194] - Older injury that is bothering her more than her newer left hip surgery. Normal [facility] CBC AUTO DIFFon 06-18-2022 BASO # 0.0 103/ul Normal 0.0-0.1 [facility] Comment on above: Performed By: #### C BC ####[facility] [address]ms[address] [place] [id number]. Arnoldo Taylor Basophils/100 WBC (Bld) 0.1 % Critically low 0.2-2.0 [facility] Comment on above: Performed By: #### C BC ####[facility] J[address]mvtu[address] [place] [id number]. Arnoldo Taylor EO # 0.2 103/ul Normal 0.0-0.7 [facility] Comment on above: Performed By: #### C BC ####[facility] Gtbnkcqrxq[address] [place] [address]Dr. Arnoldo Taylor Eosinophils/100 WBC (Bld) 2.4 % Normal 0.9-7.0 [facility] Comment on above: Performed By: #### C BC ####[facility] [address]xvqlenc[address] [place] [address]Dr. Arnoldo Taylor Erythrocyte distribution width (RBC) [Ratio] 13.7 % Normal 11.0-15.0 [facility] Comment on above: Performed By: #### C BC ####[facility] Hagecyogqw[address] [place], [place] [address]Dr. Arnoldo Taylor Hematocrit (Bld) [Volume fraction] 32.7 % Critically low 36.0-48.0 [facility] Comment on above: Performed By: #### C BC ####[facility] Beoqdiskbp[address] [place], [place] [address]Dr. Arnoldo Taylor Hemoglobin (Bld) [Mass/Vol] 10.5 g/dL Critically low 12.0-16.0 [facility] Comment on above: Performed By: #### C BC ####[facility] Sw[address]rfnqdzp[address] [place], [place] [address]Dr. Arnoldo Taylor IG # 0.02 10e3/ul Normal 0.00-0.03 [facility] Comment on above: Performed By: #### C BC ####[facility] Nrofsjmxqe[address] [place], [place] [address]Dr. Arnoldo Taylor IG % 0.3 % Normal 0.0-0.5 [facility] Comment on above: Performed By: #### C BC ####[facility] Wkfwuusyuz[address] [place], [place] [address]Dr. Arnoldo Taylor LYMPH # 2.1 103/ul Normal 1.2-3.8 [facility] Comment on above: Performed By: #### C BC ####[facility] Dpnnhbdzlz[address] [place], [place] [address]Dr. Arnoldo Taylor Lymphocytes/100 WBC (Bld) 31.5 % Normal 20.5-60.0 [facility] Comment on above: Performed By: #### C BC ####[facility] Xznvipbiot[address] [place], [place] [address]Dr. Arnoldo Taylor MANUAL DIFF REQ NO Normal [facility] Comment on above: Performed By: #### C BC ####[facility] [address]ft[address]zx[address] [place] [address]Dr. Arnoldo Taylor MCH (RBC) [Entitic mass] 30.0 pg Normal 26.7-34.0 [facility] Comment on above: Performed By: #### C BC ####[facility] Br[address]abqcqsf[address] [place] [address]Dr. Arnoldo Taylor MCHC (RBC) [Mass/Vol] 32.1 g/dL Normal 29.9-35.2 [facility] Comment on above: Performed By: #### C BC ####[facility] Wq[address]hyfafh[address] [place], [place] [address]Dr. Arnoldo Taylor MCV (RBC) [Entitic vol] 93.4 fL Normal 81.0-99.0 [facility] Comment on above: Performed By: #### C BC ####[facility] Lcifyturfo[address] [place], [place] [address]Dr. Arnoldo Taylor MONO # 0.8 103/ul Normal 0.3-0.8 [facility] Comment on above: Performed By: #### C BC ####[facility] Sqkkzgkjyf[address] [place], [place] [address]Dr. Arnoldo Taylor Monocytes/100 WBC (Bld) 12.3 % Critically high 1.7-12.0 [facility] Comment on above: Performed By: #### C BC ####[facility] Rlkxkrbdrc[address] [place], [place] [address]Dr. Arnoldo Taylor NEUT # 3.6 103/ul Normal 1.4-6.5 [facility] Comment on above: Performed By: #### C BC ####[facility] Mubenjsuxb[address] [place], [place] [address]Dr. Arnoldo Taylor Neutrophils/100 WBC (Bld) 53.4 % Normal 43.0-75.0 [facility] Comment on above: Performed By: #### C BC ####[facility] Lfwfbuatly[address] [place], [place] [address]Dr. Arnoldo Taylor Platelet mean volume (Bld) [Entitic vol] 8.9 fL Critically low 9.5-13.5 [facility] Comment on above: Performed By: #### C BC ####[facility] [address]gurk[address] [place] [address]Dr. Arnoldo Taylor PLT 214 103/ul Normal 150-450 [facility] Comment on above: Performed By: #### C BC ####[facility] Uhgyettdhp59[address] [place] [id number]. Arnoldo Taylor RBC 3.50 106/ul Critically low 4.20-5.40 [facility] Comment on above: Performed By: #### C BC ####[facility] Unyoyznwxh[address] [place] [id number]. Arnoldo Taylor WBC 6.7 103/ul Normal 4.0-11.0 [facility] Comment on above: Performed By: #### C BC ####[facility] Nrqlvzdlwm[address] [place] [address]Dr. Arnoldo Taylor FREE T3on 06-18-2022 FREE T3 1.89 pg/mlL Critically low 2.18-3.98 [facility] Comment on above: Performed By: #### F T3, T4, TSH, BMP ####[facility] Xdlavyxxvo[address] [place] [address]Dr. Arnoldo Taylor PROF CHEM 8 (BAS METB)on Anion gap [Moles/Vol] 11.5 mmol/L Normal [facility] Comment on above: Performed By: #### F T3, T4, TSH, BMP ####[facility] Esc[address]ctdmaf[address] [place] [address]Dr. Arnoldo Taylor Calcium [Mass/Vol] 8.9 mg/dL Normal 8.5-10.1 [facility] Comment on above: Performed By: #### F T3, T4, TSH, BMP ####[facility] [address]zva[address] [place] [address]Dr. Arnoldo Taylor Chloride [Moles/Vol] 107 mmol/L Normal 98-107 [facility] Comment on above: Performed By: #### F T3, T4, TSH, BMP ####[facility] Olhmy[address]upa[address] [place] [address]Dr. Arnoldo Taylor CO2 [Moles/Vol] 30.5 mmol/L Normal 21.0-32.0 [facility] Comment on above: Performed By: #### F T3, T4, TSH, BMP ####[facility] Clkafobtvw[address] [place] [address]Dr. Arnoldo Taylor Creatinine [Mass/Vol] 0.87 mg/dL Normal 0.55-1.02 [facility] Comment on above: Performed By: #### F T3, T4, TSH, BMP ####[facility] Fivnhnettn[address] [place], [place] [address]Dr. Arnoldo Taylor EGFR-AF TRISTANIAN >60 Normal >=60 [facility] Comment on above: Performed By: #### F T3, T4, TSH, BMP ####[facility] Pxywchtxxr[address] [place], [place] [address]Dr. Arnoldo Taylor EGFR-NON AF TRISTANIAN >60 Normal >=60 [facility] Comment on above: Performed By: #### F T3, T4, TSH, BMP ####[facility] Rrvljkrxgr[address] [place], [place] [address]Dr. Arnoldo Taylor Glucose [Mass/Vol] 91 mg/dL Normal 74-106 [facility] Comment on above: Performed By: #### F T3, T4, TSH, BMP ####[facility] Jrwfzzriuw78[address] [place] [address]Dr. Arnoldo Taylor Potassium [Moles/Vol] 3.0 mmol/L Critically low 3.5-5.1 [facility] Comment on above: Performed By: #### F T3, T4, TSH, BMP ####[facility] Yawvvgjnid[address] [place], [place] [address]Dr. Arnoldo Taylor Sodium [Moles/Vol] 146 mmol/L Critically high 136-145 [facility] Comment on above: Performed By: #### F T3, T4, TSH, BMP ####[facility] Gmtwpqwnpl[address] [place], [place] [address]Dr. Arnoldo Taylor Urea nitrogen [Mass/Vol] 13.0 mg/dL Normal 7.0-18.0 [facility] Comment on above: Performed By: #### F T3, T4, TSH, BMP ####[facility] Jrsqucqwyz[address] [place], [place] [address]Dr. Arnoldo Taylor Urea nitrogen/Creatinine [Mass ratio] 14.9 mg/mg Normal [facility] Comment on above: Performed By: #### F T3, T4, TSH, BMP ####[facility] Dbklsztfsv8[address] [place], [place] [address]Dr. Arnoldo Taylor T4on 06-18-2022 T4 [Mass/Vol] 9.30 ug/dL Normal 4.80-13.90 [facility] Comment on above: Performed By: #### F T3, T4, TSH, BMP ####[facility] Bktmkiusdr[address] [place], [place] [address]Dr. Arnoldo Taylor TSHon 06-18-2022 TSH 1.387 uIU/mL Normal 0.358-3.740 [facility] Comment on above: Performed By: #### F T3, T4, TSH, BMP ####[facility] Vpheqlzjar7[address] [place], [place] [address]Dr. Arnoldo Brandon CULTURE URINEon 06-04-2022 CULTURE URINE Isolate 1 Ashlyn glabrata 75,000 cfu/mL of Normal [facility] Comment on above: Performed By: #### U RCX ####[facility] Sacobpjlfs4[address] [place], [place] [address]Dr. Arnoldo Taylor UA (CLEAN/CATCH) SECURED ENTRANCE MONITOR/MICRO I F IND.on 06-04-2022 Bilirubin Ql (U) Negative Normal NEGATIVE [facility] Comment on above: Performed By: #### U ACSCRYSTAL UMICRO ####[facility] Otoakwoqjx[address] [place], [place] [address]Dr. Arnoldo Taylor Clarity (U) CLEAR Normal CLEAR [facility] Comment on above: Performed By: #### U ACSCRYSTAL UMICRO ####[facility] Gxqgkkhvop[address] [place], [place] [address]Dr. Arnoldo Taylor Color (U) LT. YELLOW Normal YELLOW [facility] Comment on above: Performed By: #### U ACSCRYSTAL UMICRO ####[facility] Zqehmdhpvq[address] [place] [address]Dr. Arnoldo Taylor Glucose Ql (U) Negative Normal NEGATIVE [facility] Comment on above: Performed By: #### U ACSIND, UMICRO ####[facility] Ifkfbttkdj38[address] [place], [place] [address]Dr. Lynettesujata Brandon Hemoglobin Ql (U) Negative Normal NEGATIVE [facility] Comment on above: Performed By: #### U ACSIND, UMICRO ####[facility] Lmhvfhdtpy[address] [place], [place] [address]Dr. Arnoldo Taylor Ketones Ql (U) Negative Normal NEGATIVE [facility] Comment on above: Performed By: #### U ACSIND, UMICRO ####[facility] Qiuujhfewb[address] [place], [place] [address]Dr. Arnoldo Taylor LEUKOCYTES SMALL Abnormal NEGATIVE [facility] Comment on above: Performed By: #### U ACSCRYSTAL, UMICRO ####[facility] Ctvfpgdxuj25[address] [place], [place] [address]Dr. Arnoldo Taylor Nitrite Ql (U) Negative Normal NEGATIVE [facility] Comment on above: Performed By: #### U ACSCRYSTAL, UMICRO ####[facility] Pzrhysfvot[address] [place], [place] [address]Dr. Arnoldo Taylor pH (U) 6.0 [pH] Normal 5-9 [facility] Comment on above: Performed By: #### U ACSIND, UMICRO ####[facility] Jqwwwynlcb[address] [place], [place] [address]Dr. Arnoldo Taylor SPEC GRAVITY 1.010 Normal 1.005-<=1.025 [facility] Comment on above: Performed By: #### U ACSIND, UMICRO ####[facility] Swwykoexao[address] [place], [place] [address]Dr. Arnoldo Taylor UA PROTEIN Negative Normal NEGATIVE/ TRACE [facility] Comment on above: Performed By: #### U ACSIND, UMICRO ####[facility] Eusczpjuvo19[address] [place], [place] [address]Dr. Arnoldo Taylor UR MICRO IND INDICATED Normal [facility] Comment on above: Performed By: #### U ACSIND, UMICRO ####[facility] V[address]fm[address]abk[address] [place] [address]Dr. Arnoldo Taylor Urobilinogen Qn (U) 0.2 {Adrienne'U}/dL Normal 0.2 - 1. 0 [facility] Comment on above: Performed By: #### U ACSIND, UMICRO ####[facility] [address]azbtywo[address] [place] [address]Dr. Arnoldo Brandon URINE MICROSCOPIC ONLYon BACTERIA TRACE Abnormal NONE SEEN [facility] Comment on above: Performed By: #### U ACSCRYSTAL, UMICRO ####[facility] Oxhsxpknhs[address] [place] [address]Dr. Lynettesujata Taylor Bacteria identified Cx Nom (U) INDICATED Normal [facility] Comment on above: Performed By: #### U ACSCRYSTAL, UMICRO ####[facility] [address]qclqephd[address] [place], [place] [address]Dr. Arnoldo Taylor CAST NONE SEEN Normal NONE SEEN [facility] Comment on above: Performed By: #### U ACSCRYSTAL, UMICRO ####[facility] Kenwhrbffk[address] [place], [place] [address]Dr. Arnoldo Brandon Crystals LM Nom (Urine sed) NONE SEEN Normal NONE SEEN [facility] Comment on above: Performed By: #### U ACSCRYSTAL, UMICRO ####[facility] Nepjvnxths[address] [place], [place] [address]Dr. Arnoldo Taylor Epithelial cells LM Ql (Urine sed) FEW Abnormal NONE SEEN /RARE [facility] Comment on above: Performed By: #### U ACSCRYSTAL, UMICRO ####[facility] Lmepnrgfpc[address] [place], [place] [address]Dr. Arnoldo Taylor MUCOUS NONE SEEN Normal NONE SEEN [facility] Comment on above: Performed By: #### U ACSIND, UMICRO ####[facility] Z[address]qczc[address] [place] [address]Dr. Arnoldo Taylor RBC 0-2 Normal 0-2 [facility] Comment on above: Performed By: #### U ACSIND, UMICRO ####[facility] X[address]btzbnhx3[address] [place], [place] [address]Kw. Lynettesujata Taylor WBC 10-20 Abnormal NONE SEEN [facility] Comment on above: Performed By: #### U JESSICA CLEANING ####[facility] Jmpvjkqzzq66[address] [place] [phone]. Arnoldo Taylor YEAST PRESENT Abnormal NONE SEEN [facility] Comment on above: Performed By: #### U CHARLY CLEANINGRO ####[facility] Wywgpqxtdw[address] [place] [phone]. 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 Pat nurse said PCP has already been advised and she is not sure who called. Normal [facility] CBC AUTO DIFFon 05-17-2022 BASO # 0.0 103/ul Normal 0.0-0.1 [facility] Comment on above: Performed By: #### C BC ####[facility] [address] [place] [id number]. Arnoldo Taylor Basophils/100 WBC (Bld) 0.1 % Critically low 0.2-2.0 [facility] Comment on above: Performed By: #### C BC ####[facility] C[address]rdpx[address] [place] [id number]. Arnoldo Taylor EO # 0.2 103/ul Normal 0.0-0.7 [facility] Comment on above: Performed By: #### C BC ####[facility] Qmzfvzjszk[address] [place] [id number]. Arnoldo Taylor Eosinophils/100 WBC (Bld) 2.0 % Normal 0.9-7.0 [facility] Comment on above: Performed By: #### C BC ####[facility] [address] [place] [address]Dr. Arnoldo Taylor Erythrocyte distribution width (RBC) [Ratio] 14.5 % Normal 11.0-15.0 [facility] Comment on above: Performed By: #### C BC ####[facility] Edpxxnolsf[address] [place] [address]Dr. Arnoldo Taylor Hematocrit (Bld) [Volume fraction] 26.2 % Critically low 36.0-48.0 [facility] Comment on above: Performed By: #### C BC ####[facility] S[address] [place], [place] [address]Dr. Arnoldo Taylor Hemoglobin (Bld) [Mass/Vol] 8.4 g/dL Critically low 12.0-16.0 [facility] Comment on above: Performed By: #### C BC ####[facility] R[address] [place], [place] [address]DrTye Arnoldo Taylor IG # 0.05 10e3/ul Critically high 0.00-0.03 [facility] Comment on above: Performed By: #### C BC ####[facility] Zdcvyhokrq[address] [place], [place] [address]Dr. Arnoldo Taylor IG % 0.5 % Normal 0.0-0.5 [facility] Comment on above: Performed By: #### C BC ####[facility] Bjdneazub[address] [place], [place] [address]DrTye Arnoldo Taylor LYMPH # 2.0 103/ul Normal 1.2-3.8 [facility] Comment on above: Performed By: #### C BC ####[facility] V[address]ttjtrjre[address] [place], [place] [address]DrTye Arnoldo Brandon Lymphocytes/100 WBC (Bld) 20.9 % Normal 20.5-60.0 [facility] Comment on above: Performed By: #### C BC ####[facility] Fxbdqudblo[address] [place], [place] [address]DrTye Lynettesujata Taylor MANUAL DIFF REQ NO Normal [facility] Comment on above: Performed By: #### C BC ####[facility] Pymkhhfieo5[address] [place] [id number]. Arnoldo Brandon MCH (RBC) [Entitic mass] 29.8 pg Normal 26.7-34.0 [facility] Comment on above: Performed By: #### C BC ####[facility] Hasgqbabma4198 [place] [id number]. Arnoldo Taylor MCHC (RBC) [Mass/Vol] 32.1 g/dL Normal 29.9-35.2 [facility] Comment on above: Performed By: #### C BC ####[facility] Uajwycisht[address] [place] [address]Dr. Arnoldo Taylor MCV (RBC) [Entitic vol] 92.9 fL Normal 81.0-99.0 [facility] Comment on above: Performed By: #### C BC ####[facility] Wkieeadvbb[address] [place], [place] [address]DrTye Taylor MONO # 1.2 103/ul Critically high 0.3-0.8 [facility] Comment on above: Performed By: #### C BC ####[facility] Zktwogpgbu[address] [place], [place] [address]Dr. Arnoldo Taylor Monocytes/100 WBC (Bld) 12.0 % Normal 1.7-12.0 [facility] Comment on above: Performed By: #### C BC ####[facility] Nyyxyezanh[address] [place], [place] [address]Dr. Arnoldo Taylor NEUT # 6.2 103/ul Normal 1.4-6.5 [facility] Comment on above: Performed By: #### C BC ####[facility] C[address] [place], [place] [address]DrTye Taylor Neutrophils/100 WBC (Bld) 64.5 % Normal 43.0-75.0 [facility] Comment on above: Performed By: #### C BC ####[facility] Zfsmeilhke[address] [place], [place] [address]DrTye Taylor Platelet mean volume (Bld) [Entitic vol] 9.6 fL Normal 9.5-13.5 [facility] Comment on above: Performed By: #### C BC ####[facility] Asltyrjvgv9[address] [place] [id number]. Arnoldo Taylor PLT 212 103/ul Normal 150-450 [facility] Comment on above: Performed By: #### C BC ####[facility] Vgenmhejyn5783 [place] [id number]. Arnoldo Taylor RBC 2.82 106/ul Critically low 4.20-5.40 [facility] Comment on above: Performed By: #### C BC ####[facility] Bbctgootct4209 [place] [id number]. Arnoldo Taylor WBC 9.6 103/ul Normal 4.0-11.0 [facility] Comment on above: Performed By: #### C BC ####[facility] Pptbcgakvz[address] [place] [address]Dr. Arnoldo Taylor PROF CHEM 8 (BAS METB)on Anion gap [Moles/Vol] 10.5 mmol/L Normal [facility] Comment on above: Performed By: #### B MP ####[facility] Nflevscxiy[address] [place], [place] [address]Dr. Arnoldo Taylor Calcium [Mass/Vol] 8.8 mg/dL Normal 8.5-10.1 [facility] Comment on above: Performed By: #### B MP ####[facility] Dzlgmyaddk[address] [place] [address]Dr. Arnoldo Taylor Chloride [Moles/Vol] 103 mmol/L Normal 98-107 [facility] Comment on above: Performed By: #### B MP ####[facility] Ciiboezblq3166 [place] [address]DrTye Taylor CO2 [Moles/Vol] 30.5 mmol/L Normal 21.0-32.0 [facility] Comment on above: Performed By: #### B MP ####[facility] Chaqtzvdsx73[address] [place] [address]Dr. Arnoldo Taylor Creatinine [Mass/Vol] 0.83 mg/dL Normal 0.55-1.02 [facility] Comment on above: Performed By: #### B MP ####[facility] Wvzgslhcji75[address] [place] [address]Dr. Arnoldo Taylor EGFR-AF TRISTANIAN >60 Normal >=60 [facility] Comment on above: Performed By: #### B MP ####[facility] Awxgmtjbwa7326 [place] [address]Dr. Lynettesujata Brandon EGFR-NON AF TRISTANIAN >60 Normal >=60 [facility] Comment on above: Performed By: #### B MP ####[facility] Yahrconpyq28[address] [place] [address]Dr. Arnoldo Taylor Glucose [Mass/Vol] 96 mg/dL Normal 74-106 [facility] Comment on above: Performed By: #### B MP ####[facility] Idtbddwmpv52[address] [place] [address]Dr. Arnoldo Taylor Potassium [Moles/Vol] 4.0 mmol/L Normal 3.5-5.1 [facility] Comment on above: Performed By: #### B MP ####[facility] Piqtgphwpx6[address] [place] [address]Dr. Arnoldo Taylor Sodium [Moles/Vol] 140 mmol/L Normal 136-145 [facility] Comment on above: Performed By: #### B MP ####[facility] Laoygsqwbl8575 [place] [address]Dr. Arnoldo Taylor Urea nitrogen [Mass/Vol] 22.0 mg/dL Critically high 7.0-18.0 [facility] Comment on above: Performed By: #### B MP ####[facility] Wmfqmlqhbf26[address] [place] [id number]. Arnoldo Taylor Urea nitrogen/Creatinine [Mass ratio] 26.5 mg/mg Normal [facility] Comment on above: Performed By: #### B MP ####[facility] Wonbaxbrsw6[address] [place] [id number]. Arnoldo Taylor BASIC METABOLIC PANELon 05-02 Anion gap [Moles/Vol] 8 mmol/L Normal 7-20 [facility] Comment on above: Performed By: #### L AB15 ####[facility] ([facility])[address] [place] [address] Calcium [Mass/Vol] 8.8 mg/dL Normal 8.6-10.3 [facility] Comment on above: Performed By: #### L AB15 ####[facility] ([facility])[address] [place] [address] Chloride [Moles/Vol] 105 mmol/L Normal 98-107 [facility] Comment on above: Performed By: #### L AB15 ####[facility] ([facility])[address] [place] [address] CO2 [Moles/Vol] 24 mmol/L Normal 21-31 [facility] Comment on above: Performed By: #### L AB15 ####[facility] ([facility])[address] [place] [address] Creatinine [Mass/Vol] 0.93 mg/dL Normal 0.60-1.20 [facility] Comment on above: Performed By: #### L AB15 ####[facility] ([facility])[address] [place] [address] GLOMERULAR FILTRATION RATE ML/MIN/1.73 SQ M.PREDICTED 58.6 mL/min/1.73m*2 Low >60.0 [facility] Comment on above: Result Comment: [facility]???s estimated glomerular filtration rate (eGFR) will [...] of individuals. Performed By: #### L AB15 ####[facility] ([facility])[address] [place] [address] Glucose [Mass/Vol] 164 mg/dL High 70-100 [facility] Comment on above: Performed By: #### L AB15 ####[facility] ([facility])[address] [place] [address] Potassium [Moles/Vol] 4.2 mmol/L Normal 3.5-5.1 [facility] Comment on above: Performed By: #### L AB15 ####[facility] ([facility])[address] [place] [address] Sodium [Moles/Vol] 137 mmol/L Normal 136-145 [facility] Comment on above: Performed By: #### L [id number] ####[facility] ([facility])[address] [place] [address] Urea nitrogen [Mass/Vol] 17 mg/dL Normal 7-25 [facility] Comment on above: Performed By: #### L [id number] ####[facility] ([facility])[address] [place] [address] UREA NITROGEN/CREATININE (MASS RATIO) IN SER/PLAS 18.28 Normal [facility] Comment on above: Performed By: #### L AB15 ####[facility] ([facility])[address] [place] [address] CBCon 05-12-2022 Erythrocyte distribution width (RBC) [Ratio] 13.6 % Normal 11.5-15.0 [facility] Comment on above: Performed By: #### L [id number] ####[facility] ([facility])[address] [place] [address] ERYTHROCYTE MEAN CORPUSCULAR HEMOGLOBIN CONCENTRATION (G/DL) BY AUTOMATED 34.0 g/dL Normal 32.0-35.0 [facility] Comment on above: Performed By: #### L [id number] ####[facility] ([facility])[address] [place] [address] Hematocrit (Bld) [Volume fraction] 28.8 % Low 36.0-48.0 [facility] Comment on above: Performed By: #### L [id number] ####[facility] ([facility])[address] [place] [address] Hemoglobin (Bld) [Mass/Vol] 9.8 g/dL Low 12.0-15.0 [facility] Comment on above: Performed By: #### L [id number] ####[facility] ([facility])[address] [place] [address] MCH (RBC) [Entitic mass] 30.8 pg Normal 27.0-33.0 [facility] Comment on above: Performed By: #### L [id number] ####[facility] ([facility])[address] [place] [address] MCV (RBC) [Entitic vol] 90.6 fL Normal 82.0-98.0 [facility] Comment on above: Performed By: #### L [id number] ####[facility] ([facility])[address] [place] [address] PLATELETS (10*3/UL) IN BLOOD AUTOMATED COUNT 111 10*3/uL Low 150-400 [facility] Comment on above: Performed By: #### L [id number] ####[facility] ([facility])[address] [place] [address] RBC (Bld) [#/Vol] 3.18 10*6/uL Low 3.80-5.00 [facility] Comment on above: Performed By: #### L [id number] ####[facility] ([facility])[address] [place] [address] WBC (Bld) [#/Vol] 11.38 10*3/uL High 4.00-10.60 [facility] Comment on above: Performed By: #### L [id number] ####[facility] ([facility])[address] [place] [address] MAGNESIUMon 05-12-2022 Magnesium [Mass/Vol] 1.5 mg/dL Low 1.9-2.7 [facility] Comment on above: Performed By: #### L [id number] ####[facility] ([facility])[address] [place] [address] PHOSPHORUSon 05-12-2022 Magnesium [Mass/Vol] 2.6 mg/dL Normal 2.5-5.0 [facility] Comment on above: Performed By: #### L [id number] ####[facility] ([facility])[address] [place] [address] Anesthesiaon 05-11-2022 Anesthesia [id number] Fausto Yanes 1940 F Date Provider Department Center 05/11/[address] [facility] Medical C Family History Family history unknown: Yes Normal [facility] BASIC METABOLIC PANELon 05-02 Anion gap [Moles/Vol] 6 mmol/L Low 7-20 [facility] Comment on above: Performed By: #### L [id number] ####[facility] ([facility])[address] [place] [address] Calcium [Mass/Vol] 9.1 mg/dL Normal 8.6-10.3 [facility] Comment on above: Performed By: #### L [id number] ####[facility] ([facility])[address] [place] [address] Chloride [Moles/Vol] 106 mmol/L Normal 98-107 [facility] Comment on above: Performed By: #### L [id number] ####[facility] ([facility])[address] [place] [address] CO2 [Moles/Vol] 27 mmol/L Normal 21-31 [facility] Comment on above: Performed By: #### L [id number] ####[facility] ([facility])[address] [place] [address] Creatinine [Mass/Vol] 0.84 mg/dL Normal 0.60-1.20 [facility] Comment on above: Performed By: #### L [id number] ####[facility] ([facility])[address] [place] [address] GLOMERULAR FILTRATION RATE ML/MIN/1.73 SQ M.PREDICTED 66.3 mL/min/1.73m*2 Normal >60.0 [facility] Comment on above: Result Comment: [facility]???s estimated glomerular filtration rate (eGFR) will [...] of individuals. Performed By: #### L [id number] ####[facility] ([facility])[address] [place] [address] Glucose [Mass/Vol] 100 mg/dL Normal 70-100 [facility] Comment on above: Performed By: #### L [id number] ####[facility] ([facility])[address] [place] [address] Potassium [Moles/Vol] 4.2 mmol/L Normal 3.5-5.1 [facility] Comment on above: Performed By: #### L [id number] ####[facility] ([facility])[address] [facility] [place] [address] Sodium [Moles/Vol] 139 mmol/L Normal 136-145 [facility] Comment on above: Performed By: #### L [id number] ####[facility] ([facility])[address] [place] [address] Urea nitrogen [Mass/Vol] 18 mg/dL Normal 7-25 [facility] Comment on above: Performed By: #### L [id number] ####[facility] ([facility])[address] [place] [address] UREA NITROGEN/CREATININE (MASS RATIO) IN SER/PLAS 21.43 Normal [facility] Comment on above: Performed By: #### L [id number] ####[facility] ([facility])[address] [place] [address] CBCon 05-11-2022 Erythrocyte distribution width (RBC) [Ratio] 13.7 % Normal 11.5-15.0 [facility] Comment on above: Performed By: #### L [id number] ####[facility] ([facility])[address] [place] [address] ERYTHROCYTE MEAN CORPUSCULAR HEMOGLOBIN CONCENTRATION (G/DL) BY AUTOMATED 33.3 g/dL Normal 32.0-35.0 [facility] Comment on above: Performed By: #### L [id number] ####[facility] ([facility])[address] [place] [address] Hematocrit (Bld) [Volume fraction] 37.2 % Normal 36.0-48.0 [facility] Comment on above: Performed By: #### L [id number] ####[facility] ([facility])[address] [place] [address] Hemoglobin (Bld) [Mass/Vol] 12.4 g/dL Normal 12.0-15.0 [facility] Comment on above: Performed By: #### L [id number] ####[facility] ([facility])[address] [place] [address] IMMATURE PLATELET FRACTION % 1.5 % Normal 0.8-6.3 [facility] Comment on above: Performed By: #### L [id number] ####[facility] ([facility])[address] [place] [address] MCH (RBC) [Entitic mass] 30.5 pg Normal 27.0-33.0 [facility] Comment on above: Performed By: #### L [id number] ####[facility] ([facility])[address] [place] [address] MCV (RBC) [Entitic vol] 91.4 fL Normal 82.0-98.0 [facility] Comment on above: Performed By: #### L [id number] ####[facility] ([facility])[address] [place] [address] PLATELETS (10*3/UL) IN BLOOD AUTOMATED COUNT 130 10*3/uL Low 150-400 [facility] Comment on above: Performed By: #### L [id number] ####[facility] ([facility])[address] [place] [address] RBC (Bld) [#/Vol] 4.07 10*6/uL Normal 3.80-5.00 [facility] Comment on above: Performed By: #### L [id number] ####[facility] ([facility])[address] [place] [address] WBC (Bld) [#/Vol] 8.01 10*3/uL Normal 4.00-10.60 [facility] Comment on above: Performed By: #### L [id number] ####[facility] ([facility])[address] [place] [address] CONSULTon 05-11-2022 CONSULT -- Attestation signed by [...] Hip Pain. She was a transfer from [place] for a fall, hip fracture. Patient is a very poor historian with no family at bedside Per OSH report, she was found down at 1am at her nursing facility on 05/10 and taken to [place], where she was found to have a [...] of Anxiety, COPD (chronic obstructive pulmonary disease) ([facility]), Dementia ([facility]), GERD (gastroesophageal reflux disease), and Hypertension. Surgical [...] (more content not included)... Normal [facility] CT CERVICAL SPINE WO IV CONT [facility] 05-11-2022 CT CERVICAL SPINE WO IV CONTRAST [...] Electronically signed: Duarte Pollard. Normal [facility] HEMOGLOBIN A1Con 05-11-2022 Glucose [Mass/Vol] 93.93 mg/dL Normal [facility] Comment on above: Performed By: #### L AB90 ####[facility] ([facility])[address] [place] [address] HbA1c (Bld) [Mass fraction] 4.9 % Normal 4.0-6.0 [facility] Comment on above: Performed By: #### L AB90 ####[facility] ([facility])[address] [place] [address] HPon 05-11-2022 HP History Of Present Illness Myranda Yanes is a 81 y.o. female presenting with Hip Pain. This is a 81 years old female lady with a medical history of hypertension, advanced vascular dementia, deafness type II, Parkinson disease, peripheral neuropathy, gastroesophageal reflux disease, hypothyroidism, ideation hours anxiety disorder, obstructive sleep apnea, thrombocytopenia unspecified, iron deficiency anemia. She came into [facility] ED as a transfer from outside hospital /[facility] for fall and hip fracture. The patient is very poor historian and she has advanced dementia and the details from the record & medical report from the ED physician as that she was found on the floor at 1am 05/10/22 and taken to [facility]. And found to have a R femoral neck fracture and bruising to her forehead when found. She denies loss of consciousness and is on plavix/on a different report they state that she is on Eliquis we will need to verified as the care everywhere in [facility] does not show the correct medication list. Follow radiological evaluation and trauma consult was placed and we are trying to work her up for possible medical clearance Past Medical History She has a past medical history of Anxiety, COPD (chronic obstructive pulmonary disease) ([facility]), Dementia ([facility]), GERD (gastroesophageal reflux disease), and Hypertension. Surgical [...] (more content not included)... Normal [facility] LIPID PANELon 05-11-2022 CHOL/HDL 3.96 mg/dL Normal [facility] Comment on above: Performed By: #### L [id number] ####[facility] ([employer])[address] [place] [address] Cholesterol [Mass/Vol] 198 mg/dL Normal 120-200 [facility] Comment on above: Performed By: #### L [id number] ####[facility] ([employer])[address] [place] [address] Magnesium [Mass/Vol] 95 mg/dL Normal 40-149 [facility] Comment on above: Result Comment: TRIG LYCERIDE REFERENCE RANGE: 20 YEARS AND OLDER CARDIOVASCULAR RISK LESS THAN 150 mg/dL LOW RISK 150 TO 199 mg/dL BORDERLINE RISK 200 mg/dL AND GREATER HIGH RISK Performed By: #### L [id number] ####[facility] ([facility]ER)[address] [place] [address] Magnesium [Mass/Vol] 129 mg/dL Normal 0-160 [facility] Comment on above: Performed By: #### L [id number] ####[facility] ([facility]ER)[address] [place] [address] Magnesium [Mass/Vol] 50 mg/dL Normal 23-92 [facility] Comment on above: Performed By: #### L [id number] ####[facility] ([facility]ER)[address] [place] [address] NON HDL CHOL. (LDL+VLDL) 148 Normal [facility] Comment on above: Performed By: #### L [id number] ####[facility] ([facility])[address] [place] [address] TOTAL VLDL-C 19 mg/dL Normal 0-40 [facility] Comment on above: Performed By: #### L [id number] ####[facility] ([facility])[address] [place] [address] OPNOTEon 05-11-2022 OPNOTE -- Attestation signed by Carlie Shine MD at 05/11/2022 8:37 PM I agree with above documentation. Date: 05/11/2022 Location: [facility] OR Name: Myranda Yanes, : 1940, Diagnosis Pre-op Diagnosis * Closed fracture of neck of right femur, initial encounter ([facility]) [S72.001A] Post-op Diagnosis * Closed fracture of neck of right femur, initial encounter ([facility]) [S72.001A] Procedures * Right femur hemiarthroplasty Surgeons * Carlie Shine - Primary Procedure Summary Anesthesia: General ASA: III Estimated Blood Loss: 150 mL Total IV Fluids: See anesthesia note. Drains: Urethral Catheter (Active) Site Assessment Other (Comment) 05/11/22 1450 Collection Container Standard drainage bag 05/11/22 0507 Output (mL) 250 mL 05/11/22 0508 Implants Type Name Action Serial No. Bone Cement CEMENT,BONE,R,1X40US - [id number] Wasted Echo FX Hip System Implanted Total Joint PLUG,BONE,LARGE - [id number] Implanted Distal Centralizer/Centering Sleeve Implanted Bone Cement CEMENT,BONE,R,1X40US - [id number] Implanted Total Joint INSERT,ENDO II TAPER,STD - [id number] Implanted Total Joint HEAD,MODULAR,49MM - [id number] Implanted Staff: C S S Representative: Aidan Park RN Relief Scrub: Batsheva Smith Scrub Person: Susana Guerrero, FRIT BURNER Indications: Myranda Yanes is an 81 y.o. female who is having surgery for Closed fracture of neck of right femur, initial encounter ([facility]) [S72.001A]. Findings: femoral neck fracture, displaced minimally Complications: None; patient tolerated the procedure well. Disposition: PACU - hemodynamically stable. Condition: stable Specimens Collected: No specimens collected during this procedure. Attending Attestation: I was present for the entire procedure. Carlie Shine Dictated by Мария Pillai MD Orthopedic Surgery, PGY-2 Pager [phone] [facility] OPNOTE Right femur hemiarthroplasty (R) Operative Note Date: 05/11/2022 Location: [facility] OR Name: Myranda Yanes, : 1940, Diagnosis Pre-op Diagnosis * Closed fracture of neck of right femur, initial encounter ([facility]) [S72.001A] Post-op Diagnosis * Closed fracture of neck of right femur, initial encounter ([facility]) [S72.001A] Procedures * Right femur hemiarthroplasty Surgeons * Carlie Shine - Primary Procedure Summary Anesthesia: General ASA: III Estimated Blood Loss: 350 mL Total IV Fluids: see anesthesia note Drains: Urethral Catheter (Active) Site Assessment Other (Comment) 05/11/22 1450 Collection Container Standard drainage bag 05/11/22 0507 Output (mL) 250 mL 05/11/22 0508 Implants Type Name Action Serial No. Bone Cement CEMENT,BONE,R,1X40US - [id number] Wasted Echo FX Hip System Implanted Total Joint PLUG,BONE,LARGE - [id number] Implanted Distal Centralizer/Centering Sleeve Implanted Bone Cement CEMENT,BONE,R,1X40US - [id number] Implanted Total Joint INSERT,ENDO II TAPER,STD - [id number] Implanted Total Joint HEAD,MODULAR,49MM - [id number] Implanted Staff: C S S Representative: Aidan Park RN Relief Scrub: Batsheva Smith Scrub Person: Susana Guerrero CST Indications: Myranda Yanes is an 81 y.o. female who is having surgery for Closed fracture of neck of right femur, initial encounter ([facility]) [S72.001A]. DISPOSITION: PACU. FINDINGS: Displaced femoral neck [...] , damage to normal structure, PE, DVT, WA, stroke, nonunion, malunion, chronic pain, arthrosis, arthritis, [...] (more content not included)... Normal [facility] POCT GLUCOSE METER UNSOLICIT ED RESULTSon 05-11-2022 Glucose [Mass/Vol] 116 mg/dL High 70-105 [facility] Comment on above: Result Comment: [facility] Performed By: #### L [id number] ####[facility] ([facility])[address] [place] [address] Prep for Procedureon 023 Prep for Procedure [id number] Fausto Yanes 1940 F Date Provider Department Center 05/11/2022 JOHN RASHID MP [facility] Family History Family history unknown: Yes Normal [facility] T4, FREEon 05-11-2022 THYROXINE (T4) FREE (NG/DL) IN SER/PLAS 1.38 ng/dL Normal 0.71-1.85 [facility] Comment on above: Performed By: #### L [id number] ####[facility] ([facility])[address] [place] [address] TSH3 REFLEX TO FT4on 023 THYROTROPIN (MIU/L) IN SER/PLAS BY DETECTION LIMIT <= 0.05 MIU/L 0.03 mIU/L Low 0.34-5.60 [facility] Comment on above: Performed By: #### L [id number] ####[facility] ([facility])[address] [place] [address] TYPE AND SCREENon 05-11-2022 AB SCREEN Negative Normal [facility] Comment on above: Performed By: #### L [id number] ####[facility] BLOOD BANK, ABO group Nom (Bld) A Normal [facility] Comment on above: Performed By: #### L [id number] ####[facility]OD [facility], RH TYPE IN BLOOD Positive Normal [facility] Comment on above: Performed By: #### L [id number] ####[facility] B[facility]OD [facility], URINALYSIS MICROSCOPIC WITH REFLEX CULTUREon 05-11-2022 CASTS IN URINE Normal [facility] Comment on above: Performed By: #### L [id number] ####[facility] HOSPITAL LAB (BEAKER)[address] [place] [address] CRYSTALS IN URINE Normal [facility] Comment on above: Performed By: #### L [id number] ####[facility] (BE[facility])[address] [place] [address] LEUKOCYTE ESTERASE PRESENCE IN URINE BY TEST STRIP Negative Normal Negative [facility] Comment on above: Performed By: #### L [id number] ####[facility] (BEAKER)[address] [place] [address] Order Comment: 0000 Performed By: #### L [id number] ####[facility] (BEAKER)[address] [place] [address] MUCUS (#/HPF) IN URINE SEDIMENT Occasional Normal None Seen, Occasional, Few [facility] Comment on above: Performed By: #### L [id number] ####[facility] (BEAKER)[address] [place] [address] NITRITE PRESENCE IN URINE Negative Normal Negative [facility] Comment on above: Performed By: #### L [id number] ####[facility] (BEAKER)[address] [place] [address] Order Comment: 0000 Performed By: #### L [id number] ####[facility] HOSPITAL LAB (BEAKER)[address] [place] [address] OTHER MICROSCOPIC ELEMENTS Normal [facility] Comment on above: Performed By: #### L [id number] ####[facility] HOSPITAL LAB (BEAKER)[address] [place] [address] RBC (#/HPF) IN URINE SEDIMENT 11-20 Abnormal None Seen [facility] Comment on above: Performed By: #### L [id number] ####[facility] HOSPITAL LAB (BEAKER)[address] [place] [address] SQUAMOUS EPITHELIAL CELLS (#/HPF) IN URINE SEDIMENT None Seen Normal None Seen, Occasional [facility] Comment on above: Performed By: #### L [id number] ####[facility] HOSPITAL LAB (BEAKER)[address] [place] [address] WBC (LEUKOCYTE) (#/HPF) IN URINE SEDIMENT 0-2 Abnormal None Seen [facility] Comment on above: Performed By: #### L [id number] ####[facility] HOSPITAL LAB (BEAKER)[address] [place] [address] URINALYSIS WITH REFLEX CULTU REon 05-11-2022 BILIRUBIN, TOTAL PRESENCE IN URINE Negative Normal Negative [facility] Comment on above: Order Comment: 0000 Performed By: #### L [id number] ####[facility] (BEAKER)[address] [place] [address] Clarity (U) Clear Normal Clear [facility] Comment on above: Order Comment: 0000 Performed By: #### L [id number] ####[facility] (BEAKER)[address] [place] [address] Color (U) Yellow Normal Yellow, Dark Yellow, Straw [facility] Comment on above: Order Comment: 0000 Performed By: #### L [id number] ####[facility] HOSPITAL LAB (BEAKER)[address] [place] [address] Glucose (U) [Mass/Vol] Negative Normal Negative [facility] Comment on above: Order Comment: 0000 Performed By: #### L [id number] ####[facility] HOSPITAL LAB (BEAKER)[address] [place] [address] HEMOGLOBIN PRESENCE IN URINE Small Abnormal Negative [facility] Comment on above: Order Comment: 0000 Performed By: #### L [id number] ####[facility] HOSPITAL LAB (BEAKER)[address] [place] [address] Ketones Ql (U) Negative Normal Negative [facility] Comment on above: Order Comment: 0000 Performed By: #### L [id number] ####[facility] HOSPITAL LAB (BEAKER)[address] [place] [address] pH (U) 7.5 [pH] Normal 5.0-8.0 [facility] Comment on above: Order Comment: 0000 Performed By: #### L [id number] ####[facility] (BEAKER)[address] [place] [address] Protein (U) [Mass/Vol] Negative Normal Negative [facility] Comment on above: Order Comment: 0000 Performed By: #### L [id number] ####[facility] (BEAKER)[address] [place] [address] Specific gravity (U) [Rel density] 1.015 Normal 1.015-1.020 [facility] Comment on above: Order Comment: 0000 Performed By: #### L [id number] ####[facility] ([facility])[address] [place] [address] UROBILINOGEN (EU/DL) IN URINE 0.2 EU/dL Normal Negative [facility] Comment on above: Order Comment: 0000 Performed By: #### L [id number] ####[facility] (BEAKER)[address] [place] [address] CBC AUTO DIFFon 05-10-2022 BASO # 0.0 103/ul Normal 0.0-0.1 [facility] Comment on above: Performed By: #### C BC ####[facility] [address] [place], [place] [address]Dr. Arnoldo Taylor Basophils/100 WBC (Bld) 0.1 % Critically low 0.2-2.0 [facility] Comment on above: Performed By: #### C BC ####[facility] [address] [place], [place] [address]Dr. Arnoldo Taylor EO # 0.2 103/ul Normal 0.0-0.7 [facility] Comment on above: Performed By: #### C BC ####[facility] [address] [place], [place] [address]Dr. Arnoldo Taylor Eosinophils/100 WBC (Bld) 1.7 % Normal 0.9-7.0 [facility] Comment on above: Performed By: #### C BC ####[facility] S[address] [place], [place] [address]Dr. Arnoldo Taylor Erythrocyte distribution width (RBC) [Ratio] 13.9 % Normal 11.0-15.0 [facility] Comment on above: Performed By: #### C BC ####[facility] [address] [place] [address]Dr. Arnoldo Taylor Hematocrit (Bld) [Volume fraction] 34.1 % Critically low 36.0-48.0 [facility] Comment on above: Performed By: #### C BC ####[facility] [address] [place], [place] [address]Dr. Arnoldo Taylor Hemoglobin (Bld) [Mass/Vol] 11.8 g/dL Critically low 12.0-16.0 [facility] Comment on above: Performed By: #### C BC ####[facility] [address] [place], [place] [address]Dr. Arnoldo Taylor IG # 0.01 10e3/ul Normal 0.00-0.03 [facility] Comment on above: Performed By: #### C BC ####[facility] [address] [place], [place] [address]Dr. Arnoldo Taylor IG % 0.1 % Normal 0.0-0.5 [facility] Comment on above: Performed By: #### C BC ####[facility] [address] [place], [place] [address]Dr. Arnoldo Taylor LYMPH # 1.6 103/ul Normal 1.2-3.8 [facility] Comment on above: Performed By: #### C BC ####[facility] [address] [place], [place] [address]Dr. Arnoldo Taylor Lymphocytes/100 WBC (Bld) 17.9 % Critically low 20.5-60.0 [facility] Comment on above: Performed By: #### C BC ####[facility] [address] [place], [place] [address]Dr. Arnoldo Brandon MANUAL DIFF REQ NO Normal [facility] Comment on above: Performed By: #### C BC ####[facility] [address] [place], [place] [address]Dr. Arnoldo Brandon MCH (RBC) [Entitic mass] 29.9 pg Normal 26.7-34.0 [facility] Comment on above: Performed By: #### C BC ####[facility] [address] [place] [address]Dr. Arnoldo Taylor MCHC (RBC) [Mass/Vol] 34.6 g/dL Normal 29.9-35.2 [facility] Comment on above: Performed By: #### C BC ####[facility] [address] [place], [place] [address]Dr. Arnoldo Brandon MCV (RBC) [Entitic vol] 86.3 fL Normal 81.0-99.0 [facility] Comment on above: Performed By: #### C BC ####[facility] A[address] [place], [place] [address]Dr. Arnoldo Taylor MONO # 0.9 103/ul Critically high 0.3-0.8 [facility] Comment on above: Performed By: #### C BC ####[facility] [address] [place], [place] [address]Dr. Lynettesujata Taylor Monocytes/100 WBC (Bld) 9.9 % Normal 1.7-12.0 [facility] Comment on above: Performed By: #### C BC ####[facility] [address] [place], [place] [address]Dr. Arnoldo Taylor NEUT # 6.2 103/ul Normal 1.4-6.5 [facility] Comment on above: Performed By: #### C BC ####[facility] Q[address] [place], [place] [address]Dr. Arnoldo Taylor Neutrophils/100 WBC (Bld) 70.3 % Normal 43.0-75.0 [facility] Comment on above: Performed By: #### C BC ####[facility] [address] [place], [place] [address]Dr. Arnoldo Taylor Platelet mean volume (Bld) [Entitic vol] 9.3 fL Critically low 9.5-13.5 [facility] Comment on above: Performed By: #### C BC ####[facility] [address] [place], [place] [address]Xk. Arnoldo Taylor PLT 134 103/ul Critically low 150-450 [facility] Comment on above: Performed By: #### C BC ####[facility] [address] [place], [place] [address]Hy. Arnoldo Taylor RBC 3.95 106/ul Critically low 4.20-5.40 [facility] Comment on above: Performed By: #### C BC ####[facility] [address] [place], [place] [address]Zy. Arnoldo Taylor WBC 8.8 103/ul Normal 4.0-11.0 [facility] Comment on above: Performed By: #### C BC ####[facility] [address] [place], [place] [address]Ih. Arnoldo Taylor CONSULTon 05-10-2022 CONSULT -- Attestation [...] Final Atrial Rate 11/06/2021 81 BPM Final HI Interval 11/06/2021 162 ms Final QRS DURATION 11/06/2021 90 ms Final QT Interval 11/06/2021 414 ms Final QTC CALCULATION(BAZETT) 11/06/2021 480 ms Final P Java 11/06/2021 80 degrees Final R-Java 11/06/2021 61 degrees Final T Wave Java 11/06/2021 69 degrees Final Diagnosis 11/06/2021 Final [...] he says is her Medical Power Of Fitness And Wellness Coordinator, as the patient is unable to consent for herself due to her dementia. The son stated that he did her prior two surgical consents as well. -Appreci (more content not included)... Normal [facility] CT HEAD WO CONon 05-10-2022 CT HEAD WO CON Normal [facility] CT HIP RT WO CONon CT HIP RT WO CON Normal [facility] Covid-19 PCR (CVDTB)on SARS-CoV-2 (COVID-19) RNA [...] for this test is supported by the [employer]'s declaration that [...] longer be used). Performed By: #### C [facility] ####[facility] [address] [place], [place] [address]Bu. Arnoldo Taylor EDNIlana 05-10-2022 EDKALE Pt arrives by squad this date as an ER transfer from [facility]. Pt is a resident of [facility], she was found on the floor at 1am 05/10/22 and taken to [facility]. Pt found to have a R femoral neck fracture and bruising to her forehead when found. Pt denies loss of consciousness and is on plavix. The son (Attila Yanes) is patients POA and his number is [phone]. The son is notified by ortho and telegraphic typewriter installer speaks with him as witness regarding consent and explanation of plan for upcoming procedure. Per son, he reports pt had dementia and since her last surgery she has drastically declined. Son states she most likely will not make any sense and is difficult to understand, he also states she is prone to UTIs which worsen her orientation Normal [facility] EDPROVon 05-10-2022 EDPROV HPI Chief Complaint Patient presents with Hip Pain R hip fracture Patient presenting as transfer from outside hospital for fall and hip fracture. Per report, she fell at her alf and had right hip pain, she was [...] Date Anxiety COPD (chronic obstructive pulmonary disease) ([facility]) Dementia ([facility]) GERD (gastroesophageal reflux disease) Hypertension Past Surgical [...] of neck of right femur, initial encounter ([facility]) Fall at home, sequela Medical Decision Making Dr. Ramsay performed a history and physical examination of Myranda Yanes and discussed her management with the resident. Dr. Ramsay agrees with the history, physical, assessment, and plan of care, with the following exceptions: None A 81 y.o female presents to the ED via transfer from [facility] for right hip fracture. Pt updated on plan of care. JESSICA MOORE Attestation: I performed a history and physical exam on this patient and discussed his or her management with the resident. I reviewed the resident's note and agree with the documented findings and plan of care with th (more content not included)... Normal [facility] PROF CHEM 8 (BAS METB)on Anion gap [Moles/Vol] 10.0 mmol/L Normal [facility] Comment on above: Performed By: #### B MP ####[facility] [address] [place] [address]Dr. Arnoldo Taylor Calcium [Mass/Vol] 9.1 mg/dL Normal 8.5-10.1 [facility] Comment on above: Performed By: #### B MP ####[facility] [address] [place] [address]Dr. Arnoldo Taylor Chloride [Moles/Vol] 106 mmol/L Normal 98-107 [facility] Comment on above: Performed By: #### B MP ####[facility] [address] [place] [address]Dr. Arnoldo Taylor CO2 [Moles/Vol] 28.1 mmol/L Normal 21.0-32.0 [facility] Comment on above: Performed By: #### B MP ####[facility] [address] [place], [place] [address]Dr. Arnoldo Taylor Creatinine [Mass/Vol] 0.92 mg/dL Normal 0.55-1.02 [facility] Comment on above: Performed By: #### B MP ####[facility] [address] [place], [place] [address]Dr. Arnoldo Taylor EGFR-AF TRISTANIAN >60 Normal >=60 [facility] Comment on above: Performed By: #### B MP ####[facility] [address] [place], [place] [address]Dr. Arnoldo Taylor EGFR-NON AF TRISTANIAN 59 mL/min/1.73m2 Critically low >=60 [facility] Comment on above: Performed By: #### B MP ####[facility] [address] [place], [place] [address]Dr. Arnoldo Taylor Glucose [Mass/Vol] 103 mg/dL Normal 74-106 [facility] Comment on above: Performed By: #### B MP ####[facility] [address]our[address] [place], [place] [address]Dr. Arnoldo Taylor Potassium [Moles/Vol] 4.1 mmol/L Normal 3.5-5.1 [facility] Comment on above: Performed By: #### B MP ####[facility] [address] [place], [place] [address]Nz. Arnoldo Taylor Sodium [Moles/Vol] 140 mmol/L Normal 136-145 [facility] Comment on above: Performed By: #### B MP ####[facility] [address] [place], [place] [address]Td. Arnoldo Taylor Urea nitrogen [Mass/Vol] 22.0 mg/dL Critically high 7.0-18.0 [facility] Comment on above: Performed By: #### B MP ####[facility] [address] [place], [place] [address]Xy. Arnoldo Taylor Urea nitrogen/Creatinine [Mass ratio] 23.9 mg/mg Normal [facility] Comment on above: Performed By: #### B MP ####[facility] [address] [place], [place] [address]Fc. Arnoldo Taylor XR HIP RT 2 3V W PELVISon XR HIP RT 2 3V W PELVIS Normal [facility] XR KNEE RT 4V or >on 023 XR KNEE RT 4V or > Normal [facility] CT CHEST WO CONon 04-06-2022 CT CHEST WO CON Normal [facility] Office Visiton 03-30-2022 Follow-up visit [id number] Fausto Yanes 1940 Provider Department Center 03/30/2022 GEORGE HOOD MP [facility] Family History Family history unknown: Yes Level of Service:87973 HI OFFICE/OUTPATIENT ESTABLISHED LOW MDM 20-29 MIN Reason for Visit and Comments: Follow-up [279262] Normal [facility] Orders Onlyon 03-30-2022 Orders Only [id number] Fausto Yanes 1940 Provider Department Center 03/30/2022 CHANDRA DEAL MP ORTHO [facility] Family History Family history unknown: Yes Normal [facility] Office Visiton 02-23-2022 Follow-up visit [id number] Fausto Yanes 1940 Date Provider Department Center 02/23/2022 GEORGE HOOD MP [facility] Family History Family history unknown: Yes Level of Service:97519 HI POSTOP FOLLOW UP VISIT RELATED TO ORIGINAL PX Reason for Visit and Comments: Pain [136] Normal [facility] Orders Onlyon 02-23-2022 Orders Only [id number] Fausto Yanes 1940 F Date Provider Department Center 02/23/2022 792-CHANDRA LUCIO MP [facility] Family History Family history unknown: Yes Normal [facility] CBC AUTO DIFFon 02-01-2022 BASO # 0.0 103/ul Normal 0.0-0.1 [facility] Comment on above: Performed By: #### C BC ####[facility] [address] [place] [address]Dr. Arnoldo Taylor Basophils/100 WBC (Bld) 0.3 % Normal 0.2-2.0 [facility] Comment on above: Performed By: #### C BC ####[facility] [address] [place], [place] [address]Dr. Arnoldo Taylor EO # 0.5 103/ul Normal 0.0-0.7 [facility] Comment on above: Performed By: #### C BC ####[facility] [address] [place], [place] [address]Dr. Arnoldo Taylor Eosinophils/100 WBC (Bld) 6.5 % Normal 0.9-7.0 [facility] Comment on above: Performed By: #### C BC ####[facility] [address] [place] [address]Dr. Arnoldo Taylor Erythrocyte distribution width (RBC) [Ratio] 13.3 % Normal 11.0-15.0 [facility] Comment on above: Performed By: #### C BC ####[facility] [address] [place], [place] [address]Dr. Arnoldo Taylor Hematocrit (Bld) [Volume fraction] 36.2 % Normal 36.0-48.0 [facility] Comment on above: Performed By: #### C BC ####[facility] [address] [place], [place] [address]Dr. Arnoldo Taylor Hemoglobin (Bld) [Mass/Vol] 11.4 g/dL Critically low 12.0-16.0 [facility] Comment on above: Performed By: #### C BC ####[facility] [address] [place] [address]Dr. Arnoldo Taylor IG # 0.02 10e3/ul Normal 0.00-0.03 [facility] Comment on above: Performed By: #### C BC ####[facility] [address] [place] [address]Dr. Arnoldo Taylor IG % 0.3 % Normal 0.0-0.5 [facility] Comment on above: Performed By: #### C BC ####[facility] [address]ff[address] [place], [place] [address]Dr. Arnoldo Taylor LYMPH # 3.0 103/ul Normal 1.2-3.8 [facility] Comment on above: Performed By: #### C BC ####[facility] [address]be[address] [place], [place] [address]Dr. Arnoldo Taylor Lymphocytes/100 WBC (Bld) 39.8 % Normal 20.5-60.0 [facility] Comment on above: Performed By: #### C BC ####[facility] [address]kt[address] [place], [place] [address]Dr. Arnoldo Taylor MANUAL DIFF REQ NO Normal [facility] Comment on above: Performed By: #### C BC ####[facility] [address] [place], [place] [address]Dr. Arnoldo Taylor MCH (RBC) [Entitic mass] 29.3 pg Normal 26.7-34.0 [facility] Comment on above: Performed By: #### C BC ####[facility] [address]jsf[address] [place], [place] [address]Dr. Arnoldo Taylor MCHC (RBC) [Mass/Vol] 31.5 g/dL Normal 29.9-35.2 [facility] Comment on above: Performed By: #### C BC ####[facility] [address] [place], [place] [address]Dr. Arnoldo Taylor MCV (RBC) [Entitic vol] 93.1 fL Normal 81.0-99.0 [facility] Comment on above: Performed By: #### C BC ####[facility] [address] [place] [address]DrTye Taylor MONO # 0.8 103/ul Normal 0.3-0.8 [facility] Comment on above: Performed By: #### C BC ####[facility] [address]cyco[address] [place], [place] [address]Dr. Arnoldo Taylor Monocytes/100 WBC (Bld) 10.0 % Normal 1.7-12.0 [facility] Comment on above: Performed By: #### C BC ####[facility] [address]jft[address] [place], [place] [address]Dr. Arnoldo Taylor NEUT # 3.3 103/ul Normal 1.4-6.5 [facility] Comment on above: Performed By: #### C BC ####[facility] Lyjzhbglwr[address] [place], [place] [address]Dr. Arnoldo Taylor Neutrophils/100 WBC (Bld) 43.1 % Normal 43.0-75.0 [facility] Comment on above: Performed By: #### C BC ####[facility] Yhqesztvzl89[address] [place], [place] [address]Dr. Arnoldo Taylor Platelet mean volume (Bld) [Entitic vol] 9.4 fL Critically low 9.5-13.5 [facility] Comment on above: Performed By: #### C BC ####[facility] Wreepourcl49[address] [place], [place] [address]Dr. Arnoldo Brandon PLT 185 103/ul Normal 150-450 [facility] Comment on above: Performed By: #### C BC ####[facility] Jtcbsiotbg6026[address] [place], [place] [address]DrTye Arnoldo Brandon RBC 3.89 106/ul Critically low 4.20-5.40 [facility] Comment on above: Performed By: #### C BC ####[facility] Vsbuqpdbxg3287[address] [place], [place] [address]DrTye Arnoldo Taylor WBC 7.6 103/ul Normal 4.0-11.0 [facility] Comment on above: Performed By: #### C BC ####[facility] Rlpnpglkip[address] [place] [address]Dr. Arnoldo Taylor POINT OF CARE GLUCOSEon 10-0 Glucose [Mass/Vol] 136 mg/dL Critically high 74-[address] [facility] Comment on above: Performed By: #### P OCGLUC ####[facility] Bhwsrhkmih0586 [place] [address]Dr. Arnoldo Taylor PROF 14(COMP METB)on 022 Albumin [Mass/Vol] 2.4 g/dL Critically low 3.4-5.0 [facility] Comment on above: Performed By: #### C MP ####[facility] Extsknfidu9972 [place] [address]Dr. Arnoldo Taylor Albumin/Globulin [Mass ratio] 0.6 {ratio} Normal [facility] Comment on above: Performed By: #### C MP ####[facility] Poksshlnoj5565[address] [place], [place] [address]Dr. Arnoldo Taylor ALP [Catalytic activity/Vol] 76 U/L Normal 46-116 [facility] Comment on above: Performed By: #### C MP ####[facility] Pmdxuejymj6932 [place] [address]Dr. Arnoldo Taylor ALT [Catalytic activity/Vol] 12 U/L Critically low 14-59 [facility] Comment on above: Performed By: #### C MP ####[facility] Dwxgkomiho8263 [place] [address]Dr. Arnoldo Taylor Anion gap [Moles/Vol] 10.5 mmol/L Normal [facility] Comment on above: Performed By: #### C MP ####[facility] Xyhtsonqdk2797[address] [place], [place] [address]Dr. Arnoldo Taylor AST [Catalytic activity/Vol] 16 U/L Normal 15-37 [facility] Comment on above: Performed By: #### C MP ####[facility] Zfohhpkyja5514[address] [place], [place] [address]Dr. Arnoldo Taylor Bilirubin [Mass/Vol] 0.3 mg/dL Normal 0.2-1.0 [facility] Comment on above: Performed By: #### C MP ####[facility] Ttfzxrkbqx3286[address] [place], [place] [address]Dr. Arnoldo Taylor Calcium [Mass/Vol] 8.5 mg/dL Normal 8.5-10.1 [facility] Comment on above: Performed By: #### C MP ####[facility] Gqruellplu2269[address] [place], [place] [address]Dr. Arnoldo Taylor Chloride [Moles/Vol] 110 mmol/L Critically high 98-107 [facility] Comment on above: Performed By: #### C MP ####[facility] Chulpjtruk9933[address] [place], [place] [address]Dr. Arnoldo Taylor CO2 [Moles/Vol] 26.3 mmol/L Normal 21.0-32.0 [facility] Comment on above: Performed By: #### C MP ####[facility] Vbktjxgcyk3006[address] [place], [place] [address]Dr. Arnoldo Taylor Creatinine [Mass/Vol] 0.82 mg/dL Normal 0.55-1.02 [facility] Comment on above: Performed By: #### C MP ####[facility] Ojmcoabsbn5349[address] [place], [place] [address]Dr. Arnoldo Brandon EGFR-AF TRISTANIAN >60 Normal >=60 [facility] Comment on above: Performed By: #### C MP ####[facility] Dkctvykaqs9806[address] [place], [place] [address]Dr. Arnoldo Brandon EGFR-NON AF TRISTANIAN >60 Normal >=60 [facility] Comment on above: Performed By: #### C MP ####[facility] Yrhqobnfst6985[address] [place], [place] [address]Dr. Lynettesujata Brandon Globulin (S) [Mass/Vol] 4.0 g/dL Normal [facility] Comment on above: Performed By: #### C MP ####[facility] Bzovyifart6260[address] [place], [place] [address]Dr. Lynettesujata Brandon Glucose [Mass/Vol] 97 mg/dL Normal 74-106 [facility] Comment on above: Performed By: #### C MP ####[facility] Uvrbxtfcbt1845 [place] [address]Dr. Arnoldo Taylor Potassium [Moles/Vol] 3.8 mmol/L Normal 3.5-5.1 [facility] Comment on above: Performed By: #### C MP ####[facility] Lggkutkivh7285[address] [place], [place] [address]Dr. Arnoldo Taylor Protein [Mass/Vol] 6.4 g/dL Normal 6.4-8.2 [facility] Comment on above: Performed By: #### C MP ####[facility] Qcetunkahb9959[address] [place], [place] [address]Dr. Arnoldo Taylor Sodium [Moles/Vol] 143 mmol/L Normal 136-145 [facility] Comment on above: Performed By: #### C MP ####[facility] Nyirayvsjv4430[address] [place], [place] [address]Dr. Arnoldo Taylor Urea nitrogen [Mass/Vol] 13.0 mg/dL Normal 7.0-18.0 [facility] Comment on above: Performed By: #### C MP ####[facility] Zzkuiwuhup2501[address] [place], [place] [address]Dr. Arnoldo Taylor Urea nitrogen/Creatinine [Mass ratio] 15.9 mg/mg Normal [facility] Comment on above: Performed By: #### C MP ####[facility] Cxtilemgqz0567[address] [place], [place] [address]Dr. Arnoldo Taylor CBC AUTO DIFFon 01-31-2022 BASO # 0.0 103/ul Normal 0.0-0.1 [facility] Comment on above: Performed By: #### C BC ####[facility] Jllrikwvqx5460[address] [place], [place] [address]Dr. Arnoldo Taylor Basophils/100 WBC (Bld) 0.1 % Critically low 0.2-2.0 [facility] Comment on above: Performed By: #### C BC ####[facility] Adfjpvjvfa1952[address] [place], [place] [address]Dr. Arnoldo Taylor EO # 0.5 103/ul Normal 0.0-0.7 [facility] Comment on above: Performed By: #### C BC ####[facility] Jxvrqkdlbn5724 [place] [address]Dr. Arnoldo Taylor Eosinophils/100 WBC (Bld) 6.6 % Normal 0.9-7.0 [facility] Comment on above: Performed By: #### C BC ####[facility] Pbkxhlwhlo1668[address] [place], [place] [address]Dr. Arnoldo Taylor Erythrocyte distribution width (RBC) [Ratio] 13.2 % Normal 11.0-15.0 [facility] Comment on above: Performed By: #### C BC ####[facility] Pcxbyvqdga6424[address] [place], [place] [address]Dr. Arnoldo Taylor Hematocrit (Bld) [Volume fraction] 36.7 % Normal 36.0-48.0 [facility] Comment on above: Performed By: #### C BC ####[facility] Xesvnwfkvd8010[address] [place], [place] [address]Dr. Arnoldo Taylor Hemoglobin (Bld) [Mass/Vol] 11.9 g/dL Critically low 12.0-16.0 [facility] Comment on above: Performed By: #### C BC ####[facility] Gnkiznypsh4543[address] [place], [place] [address]Dr. Arnoldo Taylor IG # 0.01 10e3/ul Normal 0.00-0.03 [facility] Comment on above: Performed By: #### C BC ####[facility] Zbxnztiqxt8414[address] [place], [place] [address]Dr. Arnoldo Taylor IG % 0.1 % Normal 0.0-0.5 [facility] Comment on above: Performed By: #### C BC ####[facility] Opgzfbtdeb030[address] [place], [place] [address]DrTye Arnoldo Taylor LYMPH # 2.8 103/ul Normal 1.2-3.8 [facility] Comment on above: Performed By: #### C BC ####[facility] Yurloipvcw8248[address] [place], [place] [address]Dr. Arnoldo Taylor Lymphocytes/100 WBC (Bld) 39.1 % Normal 20.5-60.0 [facility] Comment on above: Performed By: #### C BC ####[facility] Ewvoqmyadh3412 [place] [address]DrTye Taylor MANUAL DIFF REQ NO Normal [facility] Comment on above: Performed By: #### C BC ####[facility] Yzwktuaaxm3473 [place] [address]Dr. Arnoldo Taylor MCH (RBC) [Entitic mass] 30.1 pg Normal 26.7-34.0 [facility] Comment on above: Performed By: #### C BC ####[facility] Aasbxjgtfv5946[address] [place], [place] [address]Dr. Arnoldo Taylor MCHC (RBC) [Mass/Vol] 32.4 g/dL Normal 29.9-35.2 [facility] Comment on above: Performed By: #### C BC ####[facility] Rhblpfdcyf898[address] [place], [place] [address]Dr. Arnoldo Taylor MCV (RBC) [Entitic vol] 92.9 fL Normal 81.0-99.0 [facility] Comment on above: Performed By: #### C BC ####[facility] Czrqugoine0320[address] [place], [place] [address]Dr. Arnoldo Taylor MONO # 0.7 103/ul Normal 0.3-0.8 [facility] Comment on above: Performed By: #### C BC ####[facility] Nditkebvyd4670[address] [place], [place] [address]Dr. Arnoldo Taylor Monocytes/100 WBC (Bld) 9.5 % Normal 1.7-12.0 [facility] Comment on above: Performed By: #### C BC ####[facility] Vnxprtdfal8476[address] [place], [place] [address]DrTye Taylor NEUT # 3.2 103/ul Normal 1.4-6.5 [facility] Comment on above: Performed By: #### C BC ####[facility] Xkwczacxgh225[address] [place], [place] [address]DrTye Taylor Neutrophils/100 WBC (Bld) 44.6 % Normal 43.0-75.0 [facility] Comment on above: Performed By: #### C BC ####[facility] Bzeutpeqha5459 [place] [address]Dr. Arnoldo Taylor Platelet mean volume (Bld) [Entitic vol] 9.6 fL Normal 9.5-13.5 [facility] Comment on above: Performed By: #### C BC ####[facility] Yhrnvilvla4018 [place] [address]Dr. Arnoldo Brandon PLT 169 103/ul Normal 150-450 [facility] Comment on above: Performed By: #### C BC ####[facility] Wjsdluuokh3367 [place] [address]Dr. Arnoldo Brandon RBC 3.95 106/ul Critically low 4.20-5.40 [facility] Comment on above: Performed By: #### C BC ####[facility] Hxanypehpn7800 [place] [address]Dr. Arnoldo Brandon WBC 7.1 103/ul Normal 4.0-11.0 [facility] Comment on above: Performed By: #### C BC ####[facility] Dcxmzfpwks946[address] [place], [place] [address]Dr. Arnoldo Taylor POINT OF CARE GLUCOSEon 10-0 -2021 Glucose [Mass/Vol] 111 mg/dL Critically high 74-106 [facility] Comment on above: Performed By: #### P OCGLUC ####[facility] Cifhtjtsuk2715 [place] [address]Dr. Arnoldo Taylor Glucose [Mass/Vol] 91 mg/dL Normal 74-106 [facility] Comment on above: Performed By: #### P OCGLUC ####[facility] Nfmfrsxnde2220[address] [place], [place] [address]Dr. Arnoldo Taylor Glucose [Mass/Vol] 114 mg/dL Critically high 74-106 [facility] Comment on above: Performed By: #### P OCGLUC ####[facility] Frzlwomqmm3863[address] [place], [place] [address]DrTye Taylor PROF 14(COMP METB)on 022 Albumin [Mass/Vol] 2.5 g/dL Critically low 3.4-5.0 [facility] Comment on above: Performed By: #### C MP ####[facility] Ezwjusiqmo6834 [place] [address]Dr. Arnoldo Taylor Albumin/Globulin [Mass ratio] 0.6 {ratio} Normal [facility] Comment on above: Performed By: #### C MP ####[facility] Jzgdteycnl768[address] [place], [place] [address]Dr. Arnoldo Taylor ALP [Catalytic activity/Vol] 77 U/L Normal 46-116 [facility] Comment on above: Performed By: #### C MP ####[facility] Qtmhnzhber6626[address] [place], [place] [address]Dr. Arnoldo Taylor ALT [Catalytic activity/Vol] 14 U/L Normal 14-59 [facility] Comment on above: Performed By: #### C MP ####[facility] Kjygfqtsag564[address] [place], [place] [address]Dr. Arnoldo Taylor Anion gap [Moles/Vol] 10.1 mmol/L Normal [facility] Comment on above: Performed By: #### C MP ####[facility] Vymujstcpm1788[address] [place], [place] [address]Dr. Arnoldo Taylor AST [Catalytic activity/Vol] 27 U/L Normal 15-37 [facility] Comment on above: Performed By: #### C MP ####[facility] Ajtxlvwyer9620[address] [place], [place] [address]Dr. Arnoldo Taylor Bilirubin [Mass/Vol] 0.4 mg/dL Normal 0.2-1.0 [facility] Comment on above: Performed By: #### C MP ####[facility] Vyynfmovpz9265[address] [place], [place] [address]Dr. Arnoldo Taylor Calcium [Mass/Vol] 8.6 mg/dL Normal 8.5-10.1 [facility] Comment on above: Performed By: #### C MP ####[facility] Ssejuazhfe5818[address] [place], [place] [address]Dr. Arnoldo Taylor Chloride [Moles/Vol] 108 mmol/L Critically high 98-107 [facility] Comment on above: Performed By: #### C MP ####[facility] Aixvwjuhoz4149 [place] [address]Dr. Arnoldo Taylor CO2 [Moles/Vol] 25.7 mmol/L Normal 21.0-32.0 [facility] Comment on above: Performed By: #### C MP ####[facility] Oquwoifgun7812 [place] [address]Dr. Arnoldo Taylor Creatinine [Mass/Vol] 0.81 mg/dL Normal 0.55-1.02 [facility] Comment on above: Performed By: #### C MP ####[facility] Lpqdgifrue7785 [place] [address]Dr. Arnoldo Taylor EGFR-AF TRISTANIAN >60 Normal >=60 [facility] Comment on above: Performed By: #### C MP ####[facility] Qrnktgybwy4655 [place] [address]Dr. Arnoldo Taylor EGFR-NON AF TRISTANIAN >60 Normal >=60 [facility] Comment on above: Performed By: #### C MP ####[facility] Adhpbebzzm4597 [place] [address]Dr. Arnoldo Taylor Globulin (S) [Mass/Vol] 4.2 g/dL Normal [facility] Comment on above: Performed By: #### C MP ####[facility] Ktqqzciozw5837 [place] [address]Dr. Arnoldo Brandon Glucose [Mass/Vol] 90 mg/dL Normal 74-106 [facility] Comment on above: Performed By: #### C MP ####[facility] Lgxkgevysb1822 [place] [address]Dr. Arnoldo Taylor Potassium [Moles/Vol] 3.8 mmol/L Normal 3.5-5.1 [facility] Comment on above: Performed By: #### C MP ####[facility] Peuzxdpvlo9394 [place] [address]Dr. Arnoldo Brandon Protein [Mass/Vol] 6.7 g/dL Normal 6.4-8.2 [facility] Comment on above: Performed By: #### C MP ####[facility] Ynxkonlzih2103[address] [place], [place] [address]Dr. Arnoldo Brandon Sodium [Moles/Vol] 140 mmol/L Normal 136-145 [facility] Comment on above: Performed By: #### C MP ####[facility] Hvqrwbshjv4003[address] [place], [place] [address]Dr. Arnoldo Brandon Urea nitrogen [Mass/Vol] 10.0 mg/dL Normal 7.0-18.0 [facility] Comment on above: Performed By: #### C MP ####[facility] Qutcxauhsc3096[address] [place], [place] [address]Dr. Arnoldo Taylor Urea nitrogen/Creatinine [Mass ratio] 12.3 mg/mg Normal [facility] Comment on above: Performed By: #### C MP ####[facility] Lwswfyrqcc2800[address] [place], [place] [address]Dr. Arnoldo Taylor CBC AUTO DIFFon 01-30-2022 BASO # 0.0 103/ul Normal 0.0-0.1 [facility] Comment on above: Performed By: #### C BC ####[facility] Plhiurgjzw7995[address] [place], [place] [address]Dr. Arnoldo Taylor Basophils/100 WBC (Bld) 0.1 % Critically low 0.2-2.0 [facility] Comment on above: Performed By: #### C BC ####[facility] Gwkczqblyd7190[address] [place], [place] [address]Dr. Lynettesujata Brandon EO # 0.6 103/ul Normal 0.0-0.7 [facility] Comment on above: Performed By: #### C BC ####[facility] Eaqfremapz85[address] [place], [place] [address]Dr. Arnoldo Taylor Eosinophils/100 WBC (Bld) 8.8 % Critically high 0.9-7.0 [facility] Comment on above: Performed By: #### C BC ####[facility] Elrexffjtx1985[address] [place], [place] [address]Dr. Arnoldo Taylor Erythrocyte distribution width (RBC) [Ratio] 13.2 % Normal 11.0-15.0 [facility] Comment on above: Performed By: #### C BC ####[facility] Vebykjlxqg0383 [place] [address]Dr. Arnoldo Taylor Hematocrit (Bld) [Volume fraction] 34.7 % Critically low 36.0-48.0 [facility] Comment on above: Performed By: #### C BC ####[facility] Jhyqyhnutp2145[address] [place], [place] [address]Dr. Arnoldo Taylor Hemoglobin (Bld) [Mass/Vol] 11.2 g/dL Critically low 12.0-16.0 [facility] Comment on above: Performed By: #### C BC ####[facility] Feervrgnlc3339[address] [place], [place] [address]Dr. Lynettesujata Taylor IG # 0.02 10e3/ul Normal 0.00-0.03 [facility] Comment on above: Performed By: #### C BC ####[facility] Ehhnbqvsyt8914[address] [place], [place] [address]Dr. Arnoldo Brandon IG % 0.3 % Normal 0.0-0.5 [facility] Comment on above: Performed By: #### C BC ####[facility] Auzobxfzqu0528[address] [place], [place] [address]Dr. Arnoldo Brandon LYMPH # 2.0 103/ul Normal 1.2-3.8 [facility] Comment on above: Performed By: #### C BC ####[facility] Oimaqwmdky6293[address] [place], [place] [address]Dr. Arnoldo Brandon Lymphocytes/100 WBC (Bld) 28.4 % Normal 20.5-60.0 [facility] Comment on above: Performed By: #### C BC ####[facility] Tpralulcva5367[address] [place], [place] [address]Dr. Lynettesujata Taylor MANUAL DIFF REQ NO Normal [facility] Comment on above: Performed By: #### C BC ####[facility] Bpbmzxcmqm273[address] [place], [place] [address]Dr. Lynettesujata Taylor MCH (RBC) [Entitic mass] 30.0 pg Normal 26.7-34.0 [facility] Comment on above: Performed By: #### C BC ####[facility] Snrsctbipq8896 [place] [address]DrTye Taylor MCHC (RBC) [Mass/Vol] 32.3 g/dL Normal 29.9-35.2 [facility] Comment on above: Performed By: #### C BC ####[facility] Zcyujzmtce176[address] [place], [place] [address]DrTye Taylor MCV (RBC) [Entitic vol] 93.0 fL Normal 81.0-99.0 [facility] Comment on above: Performed By: #### C BC ####[facility] Nsuzkpfcrg3523[address] [place], [place] [address]DrTye Taylor MONO # 0.8 103/ul Normal 0.3-0.8 [facility] Comment on above: Performed By: #### C BC ####[facility] Gxugjjmrbs0601[address] [place], [place] [address]DrTye Taylor Monocytes/100 WBC (Bld) 11.0 % Normal 1.7-12.0 [facility] Comment on above: Performed By: #### C BC ####[facility] Sriqbbzasy0605[address] [place], [place] [address]DrTye Taylor NEUT # 3.6 103/ul Normal 1.4-6.5 [facility] Comment on above: Performed By: #### C BC ####[facility] Gnskubxmnx435[address] [place], [place] [address]DrTye Taylor Neutrophils/100 WBC (Bld) 51.4 % Normal 43.0-75.0 [facility] Comment on above: Performed By: #### C BC ####[facility] Tdgymuqkkq200[address] [place], [place] [address]DrTye Taylor Platelet mean volume (Bld) [Entitic vol] 9.2 fL Critically low 9.5-13.5 [facility] Comment on above: Performed By: #### C BC ####[facility] Odhknnuqml6068[address] [place], [place] [address]Dr. Arnoldo Taylor PLT 150 103/ul Normal 150-450 [facility] Comment on above: Performed By: #### C BC ####[facility] Qgzlkvhsou1961 [place] [address]Dr. Arnoldo Taylor RBC 3.73 106/ul Critically low 4.20-5.40 [facility] Comment on above: Performed By: #### C BC ####[facility] Jgnyqjqzhs4316 [place] [address]Dr. Arnoldo Taylor WBC 7.0 103/ul Normal 4.0-11.0 [facility] Comment on above: Performed By: #### C BC ####[facility] Jqkgxaydrm6233 [place] [address]Dr. Arnoldo Brandon POINT OF CARE GLUCOSEon 10-0 Glucose [Mass/Vol] 90 mg/dL Normal 74-106 [facility] Comment on above: Performed By: #### P OCGLUC ####[facility] Ytyyqqskya0451 [place] [address]Dr. Arnoldo Taylor Glucose [Mass/Vol] 137 mg/dL Critically high 74-106 [facility] Comment on above: Performed By: #### P OCGLUC ####[facility] Hjpgjdjgfl6620[address] [place], [place] [address]Dr. Arnoldo Taylor Glucose [Mass/Vol] 91 mg/dL Normal 74-106 [facility] Comment on above: Performed By: #### P OCGLUC ####[facility] Fynawzmpbi039[address] [place], [place] [address]Dr. Arnoldo Brandon PROF 14(COMP METB)on 022 Albumin [Mass/Vol] 2.5 g/dL Critically low 3.4-5.0 [facility] Comment on above: Performed By: #### C MP ####[facility] Kgzjpmnsyr7520[address] [place], [place] [address]Dr. Arnoldo Taylor Albumin/Globulin [Mass ratio] 0.7 {ratio} Normal [facility] Comment on above: Performed By: #### C MP ####[facility] Ithcuujkjy4516 [place] [address]Dr. Arnoldo Taylor ALP [Catalytic activity/Vol] 83 U/L Normal 46-116 [facility] Comment on above: Performed By: #### C MP ####[facility] Oshgmsqszy6583 [place] [address]Dr. Arnoldo Taylor ALT [Catalytic activity/Vol] 14 U/L Normal 14-59 [facility] Comment on above: Performed By: #### C MP ####[facility] Opnzcxrien2632 [place] [address]Dr. Arnoldo Brandon Anion gap [Moles/Vol] 11.3 mmol/L Normal [facility] Comment on above: Performed By: #### C MP ####[facility] Cxahfwfyus6944[address] [place], [place] [address]Dr. Arnoldo Brandon AST [Catalytic activity/Vol] 16 U/L Normal 15-37 [facility] Comment on above: Performed By: #### C MP ####[facility] Kekqdqhvdu8293[address] [place], [place] [address]Dr. Arnoldo Brandon Bilirubin [Mass/Vol] 0.3 mg/dL Normal 0.2-1.0 [facility] Comment on above: Performed By: #### C MP ####[facility] Jtzmbbyhkz125[address] [place], [place] [address]Dr. Arnoldo Brandon Calcium [Mass/Vol] 8.5 mg/dL Normal 8.5-10.1 [facility] Comment on above: Performed By: #### C MP ####[facility] Nllovunrhi8718 [place] [address]Dr. Arnoldo Brandon Chloride [Moles/Vol] 110 mmol/L Critically high 98-107 [facility] Comment on above: Performed By: #### C MP ####[facility] Hccsxsrccd8320[address] [place], [place] [address]Dr. Arnoldo Taylor CO2 [Moles/Vol] 25.8 mmol/L Normal 21.0-32.0 [facility] Comment on above: Performed By: #### C MP ####[facility] Hqvijxljqt8439 [place] [address]Dr. Yisujata Taylor Creatinine [Mass/Vol] 0.83 mg/dL Normal 0.55-1.02 [facility] Comment on above: Performed By: #### C MP ####[facility] Wcmsuvrndx4381 [place] [id number]. Arnoldo Taylor EGFR-AF TRISTANIAN >60 Normal >=60 [facility] Comment on above: Performed By: #### C MP ####[facility] Ddjtqifwil7523 [place] [address]Dr. Arnoldo Brandon EGFR-NON AF TRISTANIAN >60 Normal >=60 [facility] Comment on above: Performed By: #### C MP ####[facility] Krzblyckvx5148 [place] [id number]. Arnoldo Brandon Globulin (S) [Mass/Vol] 3.8 g/dL Normal [facility] Comment on above: Performed By: #### C MP ####[facility] Zxqygxupzz0198 [place] [address]Dr. Arnoldo Brandon Glucose [Mass/Vol] 98 mg/dL Normal 74-106 [facility] Comment on above: Performed By: #### C MP ####[facility] Ozvpegqerq8777 [place] [address]Dr. Arnoldo Brandon Potassium [Moles/Vol] 3.1 mmol/L Critically low 3.5-5.1 [facility] Comment on above: Performed By: #### C MP ####[facility] Dncupzppyc6654 [place] [id number]. Arnoldo Brandon Protein [Mass/Vol] 6.3 g/dL Critically low 6.4-8.2 [facility] Comment on above: Performed By: #### C MP ####[facility] Iuelwdqsai[address] [place] [address]Dr. Arnlodo Brandon Sodium [Moles/Vol] 144 mmol/L Normal 136-145 [facility] Comment on above: Performed By: #### C MP ####[facility] Rsootkthjm99[address] [place] [address]Dr. Arnoldo Brandon Urea nitrogen [Mass/Vol] 8.0 mg/dL Normal 7.0-18.0 [facility] Comment on above: Performed By: #### C MP ####[facility] Hqtsnnggrg[address] [place], [place] [address]Dr. Arnoldo Taylor Urea nitrogen/Creatinine [Mass ratio] 9.6 mg/mg Normal [facility] Comment on above: Performed By: #### C MP ####[facility] Wgdbqxpcaa207[address] [place], [place] [address]Dr. Arnoldo Taylor CBC AUTO DIFFon 01-29-2022 BASO # 0.0 103/ul Normal 0.0-0.1 [facility] Comment on above: Performed By: #### C BC ####[facility] Sqgrkxgbjl8246[address] [place], [place] [address]Dr. Arnoldo Taylor Basophils/100 WBC (Bld) 0.2 % Normal 0.2-2.0 [facility] Comment on above: Performed By: #### C BC ####[facility] Qjyrrluynr7209[address] [place], [place] [address]DrTye Taylor EO # 0.6 103/ul Normal 0.0-0.7 [facility] Comment on above: Performed By: #### C BC ####[facility] Mstwocxgsw1502[address] [place], [place] [address]Dr. Arnoldo Taylor Eosinophils/100 WBC (Bld) 9.9 % Critically high 0.9-7.0 [facility] Comment on above: Performed By: #### C BC ####[facility] Ttvzuaonom3347[address] [place], [place] [address]Dr. Arnoldo Taylor Erythrocyte distribution width (RBC) [Ratio] 13.7 % Normal 11.0-15.0 [facility] Comment on above: Performed By: #### C BC ####[facility] Mbsvfnmnai499[address] [place], [place] [address]DrTye Taylor Hematocrit (Bld) [Volume fraction] 32.0 % Critically low 36.0-48.0 [facility] Comment on above: Performed By: #### C BC ####[facility] Rrflofngfn4049[address] [place], [place] [address]Dr. Arnoldo Taylor Hemoglobin (Bld) [Mass/Vol] 10.2 g/dL Critically low 12.0-16.0 [facility] Comment on above: Performed By: #### C BC ####[facility] Jkvfexawiz89[address] [place] [address]Dr. Arnoldo Taylor IG # 0.03 10e3/ul Normal 0.00-0.03 [facility] Comment on above: Performed By: #### C BC ####[facility] Dhtvmqevpi4399 [place] [address]Dr. Arnoldo Taylor IG % 0.5 % Normal 0.0-0.5 [facility] Comment on above: Performed By: #### C BC ####[facility] Kzaewoqmro63[address] [place], [place] [address]DrTye Taylor LYMPH # 2.0 103/ul Normal 1.2-3.8 [facility] Comment on above: Performed By: #### C BC ####[facility] Kvcxiojwyo9796[address] [place], [place] [address]Dr. Arnoldo Taylor Lymphocytes/100 WBC (Bld) 32.9 % Normal 20.5-60.0 [facility] Comment on above: Performed By: #### C BC ####[facility] Ujtoymeycm9187[address] [place], [place] [address]DrTye Taylor MANUAL DIFF REQ NO Normal [facility] Comment on above: Performed By: #### C BC ####[facility] Eodiihietj7022[address] [place], [place] [address]Dr. Arnoldo Taylor MCH (RBC) [Entitic mass] 30.2 pg Normal 26.7-34.0 [facility] Comment on above: Performed By: #### C BC ####[facility] Fotxifrqxg9006[address] [place], [place] [address]Dr. Arnoldo Taylor MCHC (RBC) [Mass/Vol] 31.9 g/dL Normal 29.9-35.2 [facility] Comment on above: Performed By: #### C BC ####[facility] Kvtbdlymzz775[address] [place], [place] [address]Dr. Arnoldo Taylor MCV (RBC) [Entitic vol] 94.7 fL Normal 81.0-99.0 [facility] Comment on above: Performed By: #### C BC ####[facility] Dmxzterqru5605 [place] [address]DrTye Arnoldo Taylor MONO # 0.7 103/ul Normal 0.3-0.8 [facility] Comment on above: Performed By: #### C BC ####[facility] Dhqvxhfsip7304 [place] [address]DrTye Taylor Monocytes/100 WBC (Bld) 11.7 % Normal 1.7-12.0 [facility] Comment on above: Performed By: #### C BC ####[facility] Sjkitqgcum9429[address] [place], [place] [address]Dr. Arnoldo Taylor NEUT # 2.8 103/ul Normal 1.4-6.5 [facility] Comment on above: Performed By: #### C BC ####[facility] Ywdrcmndtt040[address] [place], [place] [address]Dr. Arnoldo Taylor Neutrophils/100 WBC (Bld) 44.8 % Normal 43.0-75.0 [facility] Comment on above: Performed By: #### C BC ####[facility] Juwdkyldnz080[address] [place], [place] [address]Dr. Lynettesujata Taylor Platelet mean volume (Bld) [Entitic vol] 9.3 fL Critically low 9.5-13.5 [facility] Comment on above: Performed By: #### C BC ####[facility] Tayrmbnzmm7[address] [place] [address]Dr. Arnoldo Taylor PLT 130 103/ul Critically low 150-450 [facility] Comment on above: Performed By: #### C BC ####[facility] Gownqyabla8597[address] [place], [place] [address]Dr. Arnoldo Taylor RBC 3.38 106/ul Critically low 4.20-5.40 [facility] Comment on above: Performed By: #### C BC ####[facility] Mnnecbvzny3399[address] [place], [place] [address]Dr. Arnoldo Taylor WBC 6.2 103/ul Normal 4.0-11.0 [facility] Comment on above: Performed By: #### C BC ####[facility] Lajfesdgvc27[address] [place] [address]Dr. Arnoldo Taylor POINT OF CARE GLUCOSEon 01-02 Glucose [Mass/Vol] 97 mg/dL Normal 74-106 [facility] Comment on above: Performed By: #### P OCGLUC ####[facility] Yhxgffooxa99[address] [place] [address]Dr. Arnoldo Taylor Glucose [Mass/Vol] 95 mg/dL Normal 74-106 [facility] Comment on above: Performed By: #### P OCGLUC ####[facility] Oqtuvirjya8438[address] [place], [place] [address]Dr. Arnoldo Taylor Glucose [Mass/Vol] 94 mg/dL Normal 74-106 [facility] Comment on above: Performed By: #### P OCGLUC ####[facility] Vqvulqbqge9537[address] [place], [place] [address]Dr. Arnoldo Taylor PROF 14(COMP METB)on 022 Albumin [Mass/Vol] 2.4 g/dL Critically low 3.4-5.0 [facility] Comment on above: Performed By: #### C MP ####[facility] Vsxyndeqxu5[address] [place] [address]Dr. Arnoldo Taylor Albumin/Globulin [Mass ratio] 0.6 {ratio} Normal [facility] Comment on above: Performed By: #### C MP ####[facility] Xsdtcobgau6547 [place] [address]Dr. Arnoldo Taylor ALP [Catalytic activity/Vol] 79 U/L Normal 46-116 [facility] Comment on above: Performed By: #### C MP ####[facility] Gxxwzklitd8714[address] [place], [place] [address]Dr. Arnoldo Taylor ALT [Catalytic activity/Vol] 14 U/L Normal 14-59 [facility] Comment on above: Performed By: #### C MP ####[facility] Ueigairhnq9488[address] [place], [place] [address]Dr. Arnoldo Taylor Anion gap [Moles/Vol] 13.2 mmol/L Normal [facility] Comment on above: Performed By: #### C MP ####[facility] Xezspzbsik5057 [place] [address]Dr. Arnoldo Barndon AST [Catalytic activity/Vol] 16 U/L Normal 15-37 [facility] Comment on above: Performed By: #### C MP ####[facility] Iybvlcbjvo2776[address] [place], [place] [address]Dr. Arnoldo Brandon Bilirubin [Mass/Vol] 0.3 mg/dL Normal 0.2-1.0 [facility] Comment on above: Performed By: #### C MP ####[facility] Amuyxwpghp466[address] [place], [place] [address]Dr. Arnoldo Brandon Calcium [Mass/Vol] 8.6 mg/dL Normal 8.5-10.1 [facility] Comment on above: Performed By: #### C MP ####[facility] Vsgoognqfk062[address] [place], [place] [address]Dr. Arnoldo Taylor Chloride [Moles/Vol] 113 mmol/L Critically high 98-107 [facility] Comment on above: Performed By: #### C MP ####[facility] Rxtbuulztm8017[address] [place], [place] [address]Dr. Arnoldo Brandon CO2 [Moles/Vol] 22.2 mmol/L Normal 21.0-32.0 [facility] Comment on above: Performed By: #### C MP ####[facility] Ozqsbuoqeh899[address] [place], [place] [address]Dr. Lynettesujata Taylor Creatinine [Mass/Vol] 0.86 mg/dL Normal 0.55-1.02 [facility] Comment on above: Performed By: #### C MP ####[facility] Yqqvuadgvo2097[address] [place], [place] [address]Dr. Arnoldo Taylor EGFR-AF TRISTANIAN >60 Normal >=60 [facility] Comment on above: Performed By: #### C MP ####[facility] Ofrviirtro2737[address] [place], [place] [address]Dr. Arnoldo Taylor EGFR-NON AF TRISTANIAN >60 Normal >=60 [facility] Comment on above: Performed By: #### C MP ####[facility] Rkffrkakkl5[address] [place] [address]Dr. Arnoldo Taylor Globulin (S) [Mass/Vol] 3.8 g/dL Normal [facility] Comment on above: Performed By: #### C MP ####[facility] Fpifsobtnw00[address] [place] [id number]. Arnoldo Taylor Glucose [Mass/Vol] 97 mg/dL Normal 74-106 [facility] Comment on above: Performed By: #### C MP ####[facility] Qigidpikwh8334 [place] [address]Dr. Arnoldo Taylor Potassium [Moles/Vol] 3.4 mmol/L Critically low 3.5-5.1 [facility] Comment on above: Performed By: #### C MP ####[facility] Ruitjkrxbu7134[address] [place], [place] [address]Dr. Arnoldo Taylor Protein [Mass/Vol] 6.2 g/dL Critically low 6.4-8.2 [facility] Comment on above: Performed By: #### C MP ####[facility] Iwaspfiluj1096[address] [place], [place] [address]Dr. Arnoldo Taylor Sodium [Moles/Vol] 145 mmol/L Normal 136-145 [facility] Comment on above: Performed By: #### C MP ####[facility] Xxzhqwdzuk9540 [place] [address]Dr. Arnoldo Taylor Urea nitrogen [Mass/Vol] 8.0 mg/dL Normal 7.0-18.0 [facility] Comment on above: Performed By: #### C MP ####[facility] Benxbnuzvk1826[address] [place], [place] [address]Dr. Arnoldo Taylor Urea nitrogen/Creatinine [Mass ratio] 9.3 mg/mg Normal [facility] Comment on above: Performed By: #### C MP ####[facility] Cievtnxxrx7622[address] [place], [place] [address]Dr. Lynettesujata Brandon T4 LABCORPon 01-29-2022 T4 [Mass/Vol] 8.5 ug/dL Normal 4.5-12.0 [facility] Comment on above: Performed By: #### T 4LC ####[facility] Oxvlazjwtj28[address] [place] [address]Dr. Arnoldo Taylor CARDIAC DIANA 3-6on 2 CK [Catalytic activity/Vol] 102 U/L Normal 26-192 [facility] Comment on above: Performed By: #### C MREP ####[facility] Vfirimhszm3708 [place] [address]Dr. Arnoldo Taylor CK.MB [Mass/Vol] 2.04 ng/mL Normal <=3.60 [facility] Comment on above: Performed By: #### C MREP ####[facility] Qocmprijtk9231 [place] [address]Dr. Arnoldo Taylor HSTROP 53.7 pg/mL Critically high 4.0-51.3 [facility] Comment on above: Result Comment: CUT- OFF POINTS HAVE BEEN ESTABLISHED BASED ON THE FOURTH UNIVERSAL DEFINITIONS OF MYOCARDIALINFARCTION. THE UPPER REFERENCE LIMIT (URL) OF TROPONIN, DEFINED THE 99TH PERCENTILE OFcTnI DISTRIBUTION IN A REFERENCE POPULATION, HAS BEEN CONFIRMED THE DECISION THRESHOLDFOR [place] DIAGNOSIS. Performed By: #### C MREP ####[facility] Smrxcxlcvu1906 [place] [address]Dr. Arnoldo Taylor CK [Catalytic activity/Vol] 107 U/L Normal 26-192 [facility] Comment on above: Performed By: #### C MREP ####[facility] Ctqaylevir7680 [place] [address]Dr. Arnoldo Taylor CK.MB [Mass/Vol] 2.23 ng/mL Normal <=3.60 [facility] Comment on above: Performed By: #### C MREP ####[facility] Anhvafhync3152[address] [place], [place] [address]Dr. Arnoldo Taylor HSTROP 66.7 pg/mL Critically high 4.0-51.3 [facility] Comment on above: Result Comment: CUT- OFF POINTS HAVE BEEN ESTABLISHED BASED ON THE FOURTH UNIVERSAL DEFINITIONS OF MYOCARDIALINFARCTION. THE UPPER REFERENCE LIMIT (URL) OF TROPONIN, DEFINED THE 99TH PERCENTILE OFcTnI DISTRIBUTION IN A REFERENCE POPULATION, HAS BEEN CONFIRMED THE DECISION THRESHOLDFOR [place] DIAGNOSIS. Performed By: #### C MREP ####[facility] Fquqmawqmi85[address] [place] [address]Dr. Arnoldo Taylor CBC AUTO DIFFon 01-28-2022 BASO # 0.0 103/ul Normal 0.0-0.1 [facility] Comment on above: Performed By: #### C BC ####[facility] Mltostwadm7435[address] [place], [place] [address]Dr. Arnoldo Taylor Basophils/100 WBC (Bld) 0.1 % Critically low 0.2-2.0 [facility] Comment on above: Performed By: #### C BC ####[facility] Knkhkouscd4815[address] [place], [place] [address]Dr. Arnoldo Taylor EO # 0.5 103/ul Normal 0.0-0.7 [facility] Comment on above: Performed By: #### C BC ####[facility] Ztciixesof9939[address] [place], [place] [address]Dr. Arnoldo Taylor Eosinophils/100 WBC (Bld) 5.9 % Normal 0.9-7.0 [facility] Comment on above: Performed By: #### C BC ####[facility] Fvzmsvivoa83[address] [place], [place] [address]Dr. Arnoldo Taylor Erythrocyte distribution width (RBC) [Ratio] 13.8 % Normal 11.0-15.0 [facility] Comment on above: Performed By: #### C BC ####[facility] Zxadcptkya5613[address] [place], [place] [address]Dr. Arnoldo Taylor Hematocrit (Bld) [Volume fraction] 30.4 % Critically low 36.0-48.0 [facility] Comment on above: Performed By: #### C BC ####[facility] Sfgntekscv739[address] [place], [place] [address]Dr. Arnoldo Taylor Hemoglobin (Bld) [Mass/Vol] 9.8 g/dL Critically low 12.0-16.0 [facility] Comment on above: Performed By: #### C BC ####[facility] Gcncasrcyu8760 [place] [id number]. Arnoldo Taylor IG # 0.01 10e3/ul Normal 0.00-0.03 [facility] Comment on above: Performed By: #### C BC ####[facility] Nnlbmeovxr7017 [place] [id number]. Arnoldo Taylor IG % 0.1 % Normal 0.0-0.5 [facility] Comment on above: Performed By: #### C BC ####[facility] Pqblqcwzmf4213 [place] [address]Dr. Arnoldo Brandon LYMPH # 3.4 103/ul Normal 1.2-3.8 [facility] Comment on above: Performed By: #### C BC ####[facility] Ivoucjyuhc5744 [place] [address]Dr. Arnoldo Taylor Lymphocytes/100 WBC (Bld) 44.4 % Normal 20.5-60.0 [facility] Comment on above: Performed By: #### C BC ####[facility] Yrbiklilxh5656 [place] [address]Dr. Lynettesujata Taylor MANUAL DIFF REQ NO Normal [facility] Comment on above: Performed By: #### C BC ####[facility] Ifxzguonqd6714 [place] [address]Dr. Arnoldo Brandon MCH (RBC) [Entitic mass] 30.1 pg Normal 26.7-34.0 [facility] Comment on above: Performed By: #### C BC ####[facility] Tymduumxir0168 [place] [address]Dr. Arnoldo Brandon MCHC (RBC) [Mass/Vol] 32.2 g/dL Normal 29.9-35.2 [facility] Comment on above: Performed By: #### C BC ####[facility] Rshjjlxifv9292 [place] [address]Dr. Arnoldo Brandon MCV (RBC) [Entitic vol] 93.3 fL Normal 81.0-99.0 [facility] Comment on above: Performed By: #### C BC ####[facility] Pwznsqojkr0715 [place] [address]Dr. Arnoldo Taylor MONO # 0.8 103/ul Normal 0.3-0.8 [facility] Comment on above: Performed By: #### C BC ####[facility] Kshghjpdfc9430 [place] [address]Dr. Arnoldo Taylor Monocytes/100 WBC (Bld) 10.4 % Normal 1.7-12.0 [facility] Comment on above: Performed By: #### C BC ####[facility] Vvhncrvsex1799 [place] [address]Dr. Arnoldo Taylor NEUT # 3.0 103/ul Normal 1.4-6.5 [facility] Comment on above: Performed By: #### C BC ####[facility] Mgdkdxeixi2547 [place] [address]Dr. Arnoldo Taylor Neutrophils/100 WBC (Bld) 39.1 % Critically low 43.0-75.0 [facility] Comment on above: Performed By: #### C BC ####[facility] Mityocwkmf0562 [place] [address]Dr. Arnoldo Taylor Platelet mean volume (Bld) [Entitic vol] 9.5 fL Normal 9.5-13.5 [facility] Comment on above: Performed By: #### C BC ####[facility] Fccmwtapgs5211 [place] [address]Dr. Arnoldo Taylor PLT 108 103/ul Critically low 150-450 [facility] Comment on above: Performed By: #### C BC ####[facility] Cuzvxhpfrp3120 [place] [address]Dr. Arnoldo Taylor RBC 3.26 106/ul Critically low 4.20-5.40 [facility] Comment on above: Performed By: #### C BC ####[facility] Tzvagndjft6288 [place] [address]Dr. Arnoldo Taylor WBC 7.6 103/ul Normal 4.0-11.0 [facility] Comment on above: Performed By: #### C BC ####[facility] Ufnoholpxc8301 [place] [phone]. Arnoldo Taylor CTA CHEST WO W CONon 022 CTA CHEST WO W CON Normal [facility] POINT OF CARE GLUCOSEon 01-01 Glucose [Mass/Vol] 88 mg/dL Normal 74-106 [facility] Comment on above: Performed By: #### P OCGLUC ####[facility] Sokabvefii034[address] [place] [address]Dr. Arnoldo Taylor Glucose [Mass/Vol] 95 mg/dL Normal 74-106 [facility] Comment on above: Performed By: #### P OCGLUC ####[facility] Zaggmdamve9253 [place] [address]Dr. Arnoldo Taylor Glucose [Mass/Vol] 117 mg/dL Critically high 74-106 [facility] Comment on above: Performed By: #### P OCGLUC ####[facility] Xgvemdyong4670 [place] [address]Dr. Arnoldo Taylor PROF 14(COMP METB)on 022 Albumin [Mass/Vol] 2.4 g/dL Critically low 3.4-5.0 [facility] Comment on above: Performed By: #### C MP ####[facility] Mpliwxyaul8563 [place] [address]Dr. Arnoldo Taylor Albumin/Globulin [Mass ratio] 0.7 {ratio} [facility] Comment on above: Performed By: #### C MP ####[facility] Jmfyrcatoc9881 [place] [address]Dr. Arnoldo Taylor ALP [Catalytic activity/Vol] 75 U/L Normal 46-116 [facility] Comment on above: Performed By: #### C MP ####[facility] Fyvtylygqk4159 [place] [address]Dr. Arnoldo Taylor ALT [Catalytic activity/Vol] 14 U/L Normal 14-59 [facility] Comment on above: Performed By: #### C MP ####[facility] Xsiuowdmku6593 [place] [address]Dr. Arnoldo Taylor Anion gap [Moles/Vol] 13.0 mmol/L Normal [facility] Comment on above: Performed By: #### C MP ####[facility] Dnugpuffck6044 [place] [phone]. Arnoldo Taylor AST [Catalytic activity/Vol] 15 U/L Normal 15-37 [facility] Comment on above: Performed By: #### C MP ####[facility] Lhrmtvpglf0883 [place] [phone]. Arnoldo Taylor Bilirubin [Mass/Vol] 0.3 mg/dL Normal 0.2-1.0 [facility] Comment on above: Performed By: #### C MP ####[facility] Ibxydcwfxk7035 [place] [address]Dr. Arnoldo Taylor Calcium [Mass/Vol] 8.2 mg/dL Critically low 8.5-10.1 [facility] Comment on above: Performed By: #### C MP ####[facility] Wehaidmmmf68[address] [place], [place] [address]Dr. Arnoldo Taylor Chloride [Moles/Vol] 111 mmol/L Critically high 98-107 [facility] Comment on above: Performed By: #### C MP ####[facility] Kbzjqiynic0122[address] [place], [place] [address]Dr. Arnoldo Taylor CO2 [Moles/Vol] 21.3 mmol/L Normal 21.0-32.0 [facility] Comment on above: Performed By: #### C MP ####[facility] Rspoxayqyc6972[address] [place], [place] [address]Dr. Arnoldo Taylor Creatinine [Mass/Vol] 0.96 mg/dL Normal 0.55-1.02 [facility] Comment on above: Performed By: #### C MP ####[facility] Msydhkbwln[address] [place], [place] [address]Dr. Lynettesujata Brandon EGFR-AF TRISTANIAN >60 Normal >=60 [facility] Comment on above: Performed By: #### C MP ####[facility] Kxelvygzkz689[address] [place], [place] [address]Dr. Arnoldo Taylor EGFR-NON AF TRISTANIAN 56 mL/min/1.73m2 Critically low >=60 [facility] Comment on above: Performed By: #### C MP ####[facility] Vbhilwkjoy6854 [place] [address]Dr. Arnoldo Taylor Globulin (S) [Mass/Vol] 3.4 g/dL Normal [facility] Comment on above: Performed By: #### C MP ####[facility] Fucukyovko39[address] [place] [phone]. Arnoldo Taylor Glucose [Mass/Vol] 97 mg/dL Normal 74-106 [facility] Comment on above: Performed By: #### C MP ####[facility] Yzsduuivqg9525 [place] [address]Dr. Arnoldo Taylor Potassium [Moles/Vol] 3.3 mmol/L Critically low 3.5-5.1 [facility] Comment on above: Performed By: #### C MP ####[facility] Pkyqitsfth4807 [place] [address]Dr. Arnoldo Taylor Protein [Mass/Vol] 5.8 g/dL Critically low 6.4-8.2 [facility] Comment on above: Performed By: #### C MP ####[facility] Iacigrwoen4780 [place] [address]Dr. Arnoldo Taylor Sodium [Moles/Vol] 142 mmol/L Normal 136-145 [facility] Comment on above: Performed By: #### C MP ####[facility] Tnbufuxhzm[address] [place] [address]Dr. Arnoldo Taylor Urea nitrogen [Mass/Vol] 12.0 mg/dL Normal 7.0-18.0 [facility] Comment on above: Performed By: #### C MP ####[facility] Jxqafywnmp3877 [place] [address]Dr. Arnoldo Taylor Urea nitrogen/Creatinine [Mass ratio] 12.5 mg/mg Normal [facility] Comment on above: Performed By: #### C MP ####[facility] Oieydocnft4764 [place] [address]Dr. Arnoldo Brandon CT CHEST WO CONon 01-27-2022 CT CHEST WO CON Normal [facility] ECHOCARDIO M/2D COMPLETEon 0 01-27-2022 ECHOCARDIO M/2D COMPLETE Normal [facility] POINT OF CARE GLUCOSEon 09-2 Glucose [Mass/Vol] 142 mg/dL Critically high 74-106 [facility] Comment on above: Performed By: #### P OCGLUC ####[facility] Ylnhinueao2280 [place] [address]Dr. Arnoldo Taylor Glucose [Mass/Vol] 121 mg/dL Critically high 74-106 [facility] Comment on above: Performed By: #### P OCGLUC ####[facility] Oqlyudbfhd0456 [place] [address]Dr. Arnoldo Taylor RESPIRATORY PANEL PLUSon Adenovirus Not detected Normal NOT DETECTED [facility] Comment on above: Performed By: #### R SPLUS ####[facility] Sjucchfakx6[address] [place], [place] [address]Dr. Arnodlo Taylor B. Parapertusis Not detected Normal NOT DETECTED The [facility] Comment on above: Performed By: #### R SPLUS ####[facility] Odwbjmhfit7937[address] [place], [place] [address]Dr. Arnoldo Taylor B. Pertussis Not detected Normal NOT DETECTED [facility] Comment on above: Performed By: #### R SPLUS ####[facility] Dwhindrxng9927[address] [place], [place] [address]Dr. Arnoldo Taylor Chlamydia Pneumoniae Not detected Normal NOT DETECTED [facility] Comment on above: Performed By: #### R SPLUS ####[facility] Utgapbtngs2084[address] [place], [place] [address]Dr. Arnoldo Taylor Coronavirus 229E Not detected Normal NOT DETECTED [facility] Comment on above: Performed By: #### R SPLUS ####[facility] Ierephotqh5079[address] [place], [place] [address]Dr. Arnoldo Taylor Coronavirus HKU1 Not detected Normal NOT DETECTED [facility] Comment on above: Performed By: #### R SPLUS ####[facility] Whrostjmhv4[address] [place], [place] [address]Dr. Arnoldo Taylor Coronavirus NL63 Not detected Normal NOT DETECTED The [facility] Comment on above: Performed By: #### R SPLUS ####[facility] Hifsclcmfu[address] [place] [address]Dr. Arnoldo Taylor Coronavirus OC43 Not detected Normal NOT DETECTED [facility] Comment on above: Performed By: #### R SPLUS ####[facility] Egavmaklof[address] [place] [address]Dr. Arnoldo Taylor Influenza A H1 2009 Not detected Normal NOT DETECTED [facility] Comment on above: Performed By: #### R SPLUS ####[facility] Jkatvhdejn[address] [place], [place] [address]Dr. Arnoldo Taylor Influenza A H3 Not detected Normal NOT DETECTED [facility] Comment on above: Performed By: #### R SPLUS ####[facility] Diukuyfldv9[address] [place], [place] [address]Dr. Arnoldo Taylor Influenza B Not detected Normal NOT DETECTED [facility] Comment on above: Performed By: #### R SPLUS ####[facility] Bkniykulqi[address] [place], [place] [address]Dr. Arnoldo Taylor Metapneumovirus Not detected Normal NOT DETECTED [facility] Comment on above: Performed By: #### R SPLUS ####[facility] Dhnbvgzzar5535[address] [place], [place] [address]Dr. Arnoldo Taylor Mycoplas. Pneumoniae Not detected Normal NOT DETECTED [facility] Comment on above: Performed By: #### R SPLUS ####[facility] Bqhcmtavgm760[address] [place], [place] [address]Dr. Arnoldo Taylor Parainfluenza 1 Not detected Normal NOT DETECTED [facility] Comment on above: Performed By: #### R SPLUS ####[facility] Hovhhhqvza2357[address] [place], [place] [address]Dr. Yisujata Taylor Parainfluenza 2 Not detected Normal NOT DETECTED [facility] Comment on above: Performed By: #### R SPLUS ####[facility] Pixgsqjdxd9516[address] [place], [place] [address]Dr. Arnoldo Taylor Parainfluenza 3 Not detected Normal NOT DETECTED [facility] Comment on above: Performed By: #### R SPLUS ####[facility] Nmvfomqcok[address] [place] [address]Dr. Arnoldo Taylor Parainfluenza 4 Not detected Normal NOT DETECTED [facility] Comment on above: Performed By: #### R SPLUS ####[facility] Bljactxvzl[address] [place] [address]Dr. Arnoldo Taylor Rhino/Enterovirus Not detected Normal NOT DETECTED [facility] Comment on above: Performed By: #### R SPLUS ####[facility] Zjysrlyjgl88[address] [place], [place] [address]Dr. Arnoldo Taylor RP2 Header 1 RESPIRATORY PANEL: VIRUSES Normal [facility] Comment on above: Performed By: #### R SPLUS ####[facility] Etpxpwehso76[address] [place], [place] [address]Dr. Arnoldo Taylor RP2 Header 2 RESPIRATORY PANEL: BACTERIA Normal [facility] Comment on above: Performed By: #### R SPLUS ####[facility] Txllfoywnu44[address] [place], [place] [address]Dr. Arnoldo Taylor RSV Not detected Normal NOT DETECTED The [facility] Comment on above: Performed By: #### R SPLUS ####[facility] Pwwwwblbwu454[address] [place], [place] [address]Dr. Arnoldo Taylor SARS-CoV-2 (COVID-19) RNA JAMMIE+probe Ql (Unsp spec) Not detected Normal NOT DETECTED [facility] Comment on above: Performed By: #### R SPLUS ####[facility] Avxrbgjyqo3753[address] [place], [place] [address]Dr. Arnoldo Taylor TROPONIN, HIGH SENSITIVITYon 01-27-2022 HSTROP 149.8 pg/mL Critically high 4.0-51.3 The [facility] Comment on above: Result Comment: CUT- OFF POINTS HAVE BEEN ESTABLISHED BASED ON THE FOURTH UNIVERSAL DEFINITIONS OF MYOCARDIALINFARCTION. THE UPPER REFERENCE LIMIT (URL) OF TROPONIN, DEFINED THE 99TH PERCENTILE OFcTnI DISTRIBUTION IN A REFERENCE POPULATION, HAS BEEN CONFIRMED THE DECISION THRESHOLDFOR [place] DIAGNOSIS. Performed By: #### H STROPN ####[facility] K[address]ciqngon[address] [place] [address]Dr. Arnoldo Taylor ACETONE SERUMon 01-26-2022 ACETONE Negative Normal NEGATIVE [facility] Comment on above: Performed By: #### A CETON ####[facility] Gerjpnddcc5338[address] [place], [place] [address]Dr. Arnoldo Taylor AMMONIAon 01-26-2022 Ammonia (P) [Mass/Vol] ug/dL Critically low 11-32 [facility] Comment on above: Performed By: #### A MM ####[facility] Khxyjrqlzh738[address] [place], [place] [address]Dr. Arnoldo Taylor CBC AUTO DIFFon 01-26-2022 BASO # 0.0 103/ul Normal 0.0-0.1 [facility] Comment on above: Performed By: #### C BC ####[facility] Zezsokiisw3332[address] [place], [place] [address]Dr. Arnoldo Taylor Basophils/100 WBC (Bld) 0.1 % Critically low 0.2-2.0 [facility] Comment on above: Performed By: #### C BC ####[facility] Acamtvvkwk0637[address] [place], [place] [address]Dr. Arnoldo Taylor EO # 0.2 103/ul Normal 0.0-0.7 [facility] Comment on above: Performed By: #### C BC ####[facility] Rgnjyktflx624[address] [place], [place] [address]Dr. Arnoldo Taylor Eosinophils/100 WBC (Bld) 2.6 % Normal 0.9-7.0 [facility] Comment on above: Performed By: #### C BC ####[facility] Oxkkoaqjvb7356[address] [place], [place] [address]Dr. Arnoldo Taylor Erythrocyte distribution width (RBC) [Ratio] 13.4 % Normal 11.0-15.0 [facility] Comment on above: Performed By: #### C BC ####[facility] Ztwjswnmwk3633[address] [place], [place] [address]Dr. Arnoldo Taylor Hematocrit (Bld) [Volume fraction] 35.3 % Critically low 36.0-48.0 [facility] Comment on above: Performed By: #### C BC ####[facility] Q[address]uqibu[address] [place] [id number]. Arnoldo Taylor Hemoglobin (Bld) [Mass/Vol] 11.5 g/dL Critically low 12.0-16.0 [facility] Comment on above: Performed By: #### C BC ####[facility] Cdsidvnlao49[address] [place] [address]Dr. Arnoldo Taylor IG # 0.04 10e3/ul Critically high 0.00-0.03 [facility] Comment on above: Performed By: #### C BC ####[facility] Dwyhnwlfnn[address] [place] [address]Dr. Arnoldo Taylor IG % 0.5 % Normal 0.0-0.5 [facility] Comment on above: Performed By: #### C BC ####[facility] Iwnmoqtxre20[address] [place], [place] [address]Dr. Arnoldo Taylor LYMPH # 2.8 103/ul Normal 1.2-3.8 [facility] Comment on above: Performed By: #### C BC ####[facility] Tyebqimryt[address] [place] [address]Dr. Arnoldo Taylor Lymphocytes/100 WBC (Bld) 31.3 % Normal 20.5-60.0 [facility] Comment on above: Performed By: #### C BC ####[facility] Laaqzezmht[address] [place] [address]Dr. Arnoldo Taylor MANUAL DIFF REQ NO Normal [facility] Comment on above: Performed By: #### C BC ####[facility] Rygntomjhz[address] [place], [place] [address]Dr. Arnoldo Taylor MCH (RBC) [Entitic mass] 30.2 pg Normal 26.7-34.0 [facility] Comment on above: Performed By: #### C BC ####[facility] Zohrugxybr[address] [place], [place] [address]Dr. Arnoldo Taylor MCHC (RBC) [Mass/Vol] 32.6 g/dL Normal 29.9-35.2 [facility] Comment on above: Performed By: #### C BC ####[facility] Ykgfilmbxe34[address] [place] [address]Dr. Arnoldo Taylor MCV (RBC) [Entitic vol] 92.7 fL Normal 81.0-99.0 [facility] Comment on above: Performed By: #### C BC ####[facility] Pfjnptmbyh01[address] [place] [address]Dr. Arnoldo Taylor MONO # 0.9 103/ul Critically high 0.3-0.8 [facility] Comment on above: Performed By: #### C BC ####[facility] Bcrvfznghg5[address] [place] [address]Dr. Arnoldo Taylor Monocytes/100 WBC (Bld) 9.8 % Normal 1.7-12.0 [facility] Comment on above: Performed By: #### C BC ####[facility] Rzwxdlqfot8[address] [place], [place] [address]Dr. Arnoldo Taylor NEUT # 4.9 103/ul Normal 1.4-6.5 [facility] Comment on above: Performed By: #### C BC ####[facility] Wpbrevykwq[address] [place], [place] [address]Dr. Arnoldo Taylor Neutrophils/100 WBC (Bld) 55.7 % Normal 43.0-75.0 [facility] Comment on above: Performed By: #### C BC ####[facility] Faabrurdee[address] [place], [place] [address]Dr. Arnoldo Taylor Platelet mean volume (Bld) [Entitic vol] 9.5 fL Normal 9.5-13.5 [facility] Comment on above: Performed By: #### C BC ####[facility] Ighgtfmfvl65[address] [place] [address]Dr. Arnoldo Taylor PLT 124 103/ul Critically low 150-450 The [facility] Comment on above: Performed By: #### C BC ####[facility] Bqimhvvpqo44[address] [place] [address]Dr. Arnoldo Taylor RBC 3.81 106/ul Critically low 4.20-5.40 [facility] Comment on above: Performed By: #### C BC ####[facility] S[address]accrg[address] [place], [place] [address]Me. Arnoldo Taylor WBC 8.9 103/ul Normal 4.0-11.0 [facility] Comment on above: Performed By: #### C BC ####[facility] Ebsltzzwvl89[address] [place], [place] [address]Dw. Arnoldo Taylor CT STROKE HEAD WOon 01-27-20 CT STROKE HEAD WO Normal [facility] CULTURE BLOODon 01-26-2022 Microscopic examination of blood, culture Culture Observations: NO GROWTH AT 5 DAYS. Normal [facility] Comment on above: Performed By: #### B LDCX2 ####[facility] Itlciqishi[address] [place] [phone]. Arnoldo Taylor Microscopic examination of blood, culture Culture Observations: NO GROWTH AT 5 DAYS. Normal [facility] Comment on above: Performed By: #### B LDCX1 ####[facility] Zirzhkwflw5[address] [place], [place] [address]Le. Arnoldo Taylor Covid-19 PCR (CVDTBH)on 01-01 SARS-CoV-2 (COVID-19) RNA JAMMIE+probe Ql (Unsp spec) Not detected Normal NOT DETECTED [facility] Comment on above: Result Comment: When diagnostic [...] for this test is supported by the [employer]'s declaration that [...] be used). Performed By: #### C VDTBH ####[facility] Bhxnwgxjrs[address] [place] [address]Dr. Arnoldo Taylor ER URINE PROFILEon 2 Bilirubin Ql (U) Negative Normal NEGATIVE [facility] Comment on above: Performed By: #### U MICRO, ERUR ####[facility] Kevwbiorda[address] [place], [place] [address]Dr. Arnoldo Taylor Clarity (U) SL CLOUDY Abnormal CLEAR [facility] Comment on above: Performed By: #### U MICRO, ERUR ####[facility] Zeunjvcxfb25[address] [place], [place] [address]Dr. Arnoldo Taylor Color (U) LT. YELLOW Normal YELLOW [facility] Comment on above: Performed By: #### U MICRO, ERUR ####[facility] Loactrduco4829[address] [place], [place] [address]Dr. Arnoldo Taylor ERUAHD A micrscopic examination will be performed if indicated. Normal [facility] Comment on above: Performed By: #### U MICRO, ERUR ####[facility] Cevkxnlbgg3[address] [place], [place] [address]Dr. Arnoldo Taylor Glucose Ql (U) Negative Normal NEGATIVE [facility] Comment on above: Performed By: #### U MICRO, ERUR ####[facility] Cxktcdbglf4945[address] [place], [place] [address]Dr. Arnoldo Taylor Hemoglobin Ql (U) TRACE-LYSED Abnormal NEGATIVE The [facility] Comment on above: Performed By: #### U MICRO, ERUR ####[facility] Ghcahbakfo7020[address] [place], [place] [address]Dr. Arnoldo Taylor Ketones Ql (U) Negative Normal NEGATIVE The [facility] Comment on above: Performed By: #### U MICRO, ERUR ####[facility] Yzqihtyitz[address] [place], [place] [address]Dr. Arnoldo Taylor LEUKOCYTES Negative Normal NEGATIVE [facility] Comment on above: Performed By: #### U MICRO, ERUR ####[facility] Tajjzwcocf3974[address] [place], [place] [address]Dr. Lynettelan Taylor Nitrite Ql (U) Negative Normal NEGATIVE The [facility] Comment on above: Performed By: #### U MICRO, ERUR ####[facility] Rdrtdxidqu65[address] [place] [address]Dr. Arnoldo Taylor pH (U) 6.0 [pH] Normal 5-9 [facility] Comment on above: Performed By: #### U MICRO, ERUR ####[facility] Alnkcghhjv88[address] [place] [address]Dr. Arnoldo Taylor SPEC GRAVITY 1.010 Normal 1.005-<=1.025 [facility] Comment on above: Performed By: #### U MICRO, ERUR ####[facility] Ngqtcyumdp939[address] [place], [place] [address]Dr. Arnoldo Taylor UA PROTEIN Negative Normal NEGATIVE/ TRACE [facility] Comment on above: Performed By: #### U MICRO, ERUR ####[facility] Bvlckdpjyl7168[address] [place], [place] [address]Dr. Arnoldo Taylor UR MICRO IND INDICATED Normal [facility] Comment on above: Performed By: #### U MICRO, ERUR ####[facility] Ezwgpfxuse5248[address] [place], [place] [address]Dr. Arnoldo Brandon Urobilinogen Qn (U) 0.2 {Adrienne'U}/dL Normal 0.2 - 1. 0 [facility] Comment on above: Performed By: #### U MICRO, ERUR ####[facility] Cnusslptbc4042[address] [place], [place] [address]Dr. Arnoldo Brandon LACTATE/LACTIC ACIDon 2021 Lactate [Moles/Vol] 1.4 mmol/L Normal 0.4-1.9 [facility] Comment on above: Performed By: #### L ACT ####[facility] Jcbevcegjv5[address] [place], [place] [address]Dr. Arnoldo Taylor Lactate [Moles/Vol] 3.6 mmol/L Critically high 0.4-1.9 [facility] Comment on above: Performed By: #### L ACT ####[facility] Ospktqiseh54[address] [place], [place] [address]Dr. Lynettesujata Taylor PH VENOUS BLOODon 01-26-2022 PCO2 VENOUS 30.5 mmHg Critically low 40.0-52.0 [facility] Comment on above: Performed By: #### P HVEN ####[facility] Fxghkgcyrq15[address] [place] [address]Dr. Arnoldo Taylor pH VENOUS 7.542 Critically high 7.330-7.430 [facility] Comment on above: Performed By: #### P HVEN ####[facility] Cyadcwkmrb72[address] [place] [address]Dr. Arnoldo Taylor PROF 14(COMP METB)on 022 Albumin [Mass/Vol] 2.9 g/dL Critically low 3.4-5.0 Th [facility] Comment on above: Performed By: #### C MP, TSH, HSTROPN ####[facility] Axbjombtfe1545[address] [place], [place] [address]Dr. Arnoldo Taylor Albumin/Globulin [Mass ratio] 0.7 {ratio} Normal [facility] Comment on above: Performed By: #### C MP, TSH, HSTROPN ####[facility] Hrgjrtptke9100[address] [place], [place] [address]Dr. Arnoldo Taylor ALP [Catalytic activity/Vol] 92 U/L Normal 46-116 [facility] Comment on above: Performed By: #### C MP, TSH, HSTROPN ####[facility] Zhtytsygnu[address] [place] [address]Dr. Arnoldo Taylor ALT [Catalytic activity/Vol] 15 U/L Normal 14-59 [facility] Comment on above: Performed By: #### C MP, TSH, HSTROPN ####[facility] Furitwdyld[address] [place] [address]Dr. Arnoldo Taylor Anion gap [Moles/Vol] 14.2 mmol/L Normal [facility] Comment on above: Performed By: #### C MP, TSH, HSTROPN ####[facility] Xqusfmqizq9[address] [place] [address]Dr. Arnoldo Taylor AST [Catalytic activity/Vol] 17 U/L Normal 15-37 [facility] Comment on above: Performed By: #### C MP, TSH, HSTROPN ####[facility] Mrugnryqqw[address] [place] [address]Dr. Arnoldo Taylor Bilirubin [Mass/Vol] 0.3 mg/dL Normal 0.2-1.0 [facility] Comment on above: Performed By: #### C MP, TSH, HSTROPN ####[facility] Dpjlbbzfiy936[address] [place], [place] [address]Dr. Arnoldo Taylor Calcium [Mass/Vol] 9.2 mg/dL Normal 8.5-10.1 [facility] Comment on above: Performed By: #### C MP, TSH, HSTROPN ####[facility] Aiweltmbqk[address]50[address] [place], [place] [address]Dr. Arnoldo Taylor Chloride [Moles/Vol] 105 mmol/L Normal 98-107 [facility] Comment on above: Performed By: #### C MP, TSH, HSTROPN ####[facility] Vbcvxumoiy908[address] [place], [place] [address]Dr. Arnoldo Taylor CO2 [Moles/Vol] 25.3 mmol/L Normal 21.0-32.0 [facility] Comment on above: Performed By: #### C MP, TSH, HSTROPN ####[facility] Qlfaasckkr17[address] [place], [place] [address]Dr. Arnoldo Taylor Creatinine [Mass/Vol] 1.38 mg/dL Critically high 0.55-1.02 [facility] Comment on above: Performed By: #### C MP, TSH, HSTROPN ####[facility] Cjtgishcej5[address] [place], [place] [address]Dr. Arnoldo Taylor EGFR-AF TRISTANIAN 45 mL/min/1.73m2 Critically low >=60 [facility] Comment on above: Performed By: #### C MP, TSH, HSTROPN ####[facility] Cfoijqyext0[address] [place], [place] [address]Dr. Arnoldo Taylor EGFR-NON AF TRISTANIAN 37 mL/min/1.73m2 Critically low >=60 [facility] Comment on above: Performed By: #### C MP, TSH, HSTROPN ####[facility] Xqfgirzzff89[address] [place] [address]Dr. Arnoldo Taylor Globulin (S) [Mass/Vol] 4.3 g/dL Normal [facility] Comment on above: Performed By: #### C MP, TSH, HSTROPN ####[facility] Qolaizdrhv6[address] [place] [address]Dr. Arnoldo Taylor Glucose [Mass/Vol] 90 mg/dL Normal 74-106 [facility] Comment on above: Performed By: #### C MP, TSH, HSTROPN ####[facility] Vuvxmlugws6[address] [place] [address]Dr. Arnoldo Taylor Potassium [Moles/Vol] 3.5 mmol/L Normal 3.5-5.1 [facility] Comment on above: Performed By: #### C MP, TSH, HSTROPN ####[facility] Ogzxpoyckr64[address] [place], [place] [address]Dr. Arnoldo Taylor Protein [Mass/Vol] 7.2 g/dL Normal 6.4-8.2 [facility] Comment on above: Performed By: #### C MP, TSH, HSTROPN ####[facility] Fowwcajcyc13[address] [place], [place] [address]Dr. Arnoldo Taylor Sodium [Moles/Vol] 141 mmol/L Normal 136-145 [facility] Comment on above: Performed By: #### C MP, TSH, HSTROPN ####[facility] Usicwjawsm86[address] [place], [place] [address]Dr. Arnoldo Taylor Urea nitrogen [Mass/Vol] 29.0 mg/dL Critically high 7.0-18.0 [facility] Comment on above: Performed By: #### C MP, TSH, HSTROPN ####[facility] Mokwouxmrn16[address] [place], [place] [address]Dr. Arnoldo Taylor Urea nitrogen/Creatinine [Mass ratio] 21.0 mg/mg Normal [facility] Comment on above: Performed By: #### C MP, TSH, HSTROPN ####[facility] Cfidopneml[address] [place] [address]Dr. Arnoldo Taylor PROTIMEon 01-26-2022 INR Coag (PPP) [Relative time] 1.06 {INR} Normal [facility] Comment on above: Performed By: #### P T, PTT ####[facility] Ybkfhtzena05[address] [place], [place] [address]Dr. Arnoldo Taylor INR GUIDELINES SEE BELOW Normal [facility] Comment on above: Result Comment: CASSIDY RED INR: 2.0 - 3.0 CONDITIONS NOT LISTED BELOW 2.5 - 3.5 FOR PROSTHETIC HEART VALVE REPLACEMENT 2.5 - 3.5 RECURRENT THROMBOSIS Performed By: #### P T, PTT ####[facility] Ngmxodhdwo7258[address] [place], [place] [address]Dr. Arnoldo Taylor PT Coag (PPP) [Time] 11.4 s Normal 9.0-11.6 [facility] Comment on above: Performed By: #### P T, PTT ####[facility] Qiynuznvdo84[address] [place], [place] [address]Dr. Arnoldo Taylor PTTon 01-26-2022 aPTT Coag (Bld) [Time] 29.1 s Normal 22.3-36.2 [facility] Comment on above: Performed By: #### P T, PTT ####[facility] Zyrmuryduh8[address] [place], [place] [address]Dr. Arnoldo Taylor TROPONIN, HIGH SENSITIVITYon 01-26-2022 HSTROP 157.4 pg/mL Critically high 4.0-51.3 [facility] Comment on above: Result Comment: CUT- OFF POINTS HAVE BEEN ESTABLISHED BASED ON THE FOURTH UNIVERSAL DEFINITIONS OF MYOCARDIALINFARCTION. THE UPPER REFERENCE LIMIT (URL) OF TROPONIN, DEFINED THE 99TH PERCENTILE OFcTnI DISTRIBUTION IN A REFERENCE POPULATION, HAS BEEN CONFIRMED THE DECISION THRESHOLDFOR [place] DIAGNOSIS. Performed By: #### H STROPN ####[facility] Yoidrzehpi8[address] [place], [place] [address]Dr. Arnoldo Taylor HSTROP 182.2 pg/mL Critically high 4.0-51.3 [facility] Comment on above: Result Comment: CUT- OFF POINTS HAVE BEEN ESTABLISHED BASED ON THE FOURTH UNIVERSAL DEFINITIONS OF MYOCARDIALINFARCTION. THE UPPER REFERENCE LIMIT (URL) OF TROPONIN, DEFINED THE 99TH PERCENTILE OFcTnI DISTRIBUTION IN A REFERENCE POPULATION, HAS BEEN CONFIRMED THE DECISION THRESHOLDFOR [place] DIAGNOSIS. Performed By: #### C MP, TSH, HSTROPN ####[facility] Ojpfvgrqbf26[address] [place] [address]Dr. Arnoldo Taylor TSHon 01-26-2022 TSH 4.233 uIU/mL Critically high 0.358-3.740 [facility] Comment on above: Performed By: #### C MP, TSH, HSTROPN ####[facility] Buxieelfgw[address] [place] [address]Dr. Arnoldo Taylor URINE MICROSCOPIC ONLYon BACTERIA NONE SEEN Normal NONE SEEN [facility] Comment on above: Performed By: #### U MICRO, ERUR ####[facility] Zyncdeblmc64[address] [place] [address]Dr. Arnoldo Taylor Bacteria identified Cx Nom (U) NOT INDICATED Normal [facility] Comment on above: Performed By: #### U MICRO, ERUR ####[facility] Bxspzybkbu4[address] [place] [address]Dr. Arnoldo Taylor CAST NONE SEEN Normal NONE SEEN [facility] Comment on above: Performed By: #### U MICRO, ERUR ####[facility] Mebjkdaraa[address] [place] [address]Dr. Arnoldo Taylor Crystals LM Nom (Urine sed) NONE SEEN Normal NONE SEEN [facility] Comment on above: Performed By: #### U MICRO, ERUR ####[facility] Dvbqkczmjy[address] [place], [place] [address]Dr. Arnoldo Taylor Epithelial cells LM Ql (Urine sed) RARE Normal NONE SEEN /RARE [facility] Comment on above: Performed By: #### U MICRO, ERUR ####[facility] Fxnzvrqovx85[address] [place], [place] [address]Dr. Arnoldo Taylor MUCOUS NONE SEEN Normal NONE SEEN [facility] Comment on above: Performed By: #### U MICRO, ERUR ####[facility] Drwnvmgijg7025[address] [place], [place] [address]Dr. Arnoldo Brandon RBC 2-5 Abnormal 0-2 [facility] Comment on above: Performed By: #### U MICRO, ERUR ####[facility] Oybkgfrgis[address] [place] [phone]. Arnoldo Brandon WBC NONE SEEN Normal NONE SEEN [facility] Comment on above: Performed By: #### U MICRO, ERUR ####[facility] Zmpwgphdre4876 [place] [phone]. Arnoldo Brandon XR CHEST 1 Von 01-26-2022 XR CHEST 1 V Normal [facility] Office Visiton 01-25-2022 Follow-up visit [id number] Fausto Yanes 1940 F Date Provider Department Center 01/25/2022 [facility] Family History Family history unknown: Yes Level of Service:67671 HI POSTOP FOLLOW UP VISIT RELATED TO ORIGINAL PX Reason for Visit and Comments: Follow-up [482587] Normal [facility] CBC AUTO DIFFon 01-14-2022 BASO # 0.0 103/ul Normal 0.0-0.1 [facility] Comment on above: Performed By: #### C BC ####[facility] Gke[address]hsbyf[address] [place] [address]Dr. Arnoldo Brandon Basophils/100 WBC (Bld) 0.2 % Normal 0.2-2.0 [facility] Comment on above: Performed By: #### C BC ####[facility] Slbtfctzcl7[address] [place] [address]Dr. Lynettesujata Brandon EO # 0.4 103/ul Normal 0.0-0.7 [facility] Comment on above: Performed By: #### C BC ####[facility] Jgwnhqxoss32[address] [place] [id number]. Lynettesujata Taylor Eosinophils/100 WBC (Bld) 5.6 % Normal 0.9-7.0 [facility] Comment on above: Performed By: #### C BC ####[facility] Wdvgvvtdrf0964 [place] [phone]. Lynettesujata Taylor Erythrocyte distribution width (RBC) [Ratio] 14.1 % Normal 11.0-15.0 [facility] Comment on above: Performed By: #### C BC ####[facility] [address]orgezgoa[address] [place] [address]DrTye Taylor Hematocrit (Bld) [Volume fraction] 30.3 % Critically low 36.0-48.0 [facility] Comment on above: Performed By: #### C BC ####[facility] Qhozaahlgu1304 [place] [address]DrTye Taylor Hemoglobin (Bld) [Mass/Vol] 9.8 g/dL Critically low 12.0-16.0 [facility] Comment on above: Performed By: #### C BC ####[facility] Mwxcnughfe12[address] [place], [place] [address]DrTye Taylor IG # 0.02 10e3/ul Normal 0.00-0.03 [facility] Comment on above: Performed By: #### C BC ####[facility] Trkionbwxy1863[address] [place], [place] [address]DrTye Taylor IG % 0.3 % Normal 0.0-0.5 [facility] Comment on above: Performed By: #### C BC ####[facility] Ksaxzgapcj3039[address] [place], [place] [address]DrTye Taylor LYMPH # 3.3 103/ul Normal 1.2-3.8 [facility] Comment on above: Performed By: #### C BC ####[facility] Kmawzpvmfw999[address] [place], [place] [address]DrTye Taylor Lymphocytes/100 WBC (Bld) 52.0 % Normal 20.5-60.0 [facility] Comment on above: Performed By: #### C BC ####[facility] Zmwsnhjcqn3669[address] [place], [place] [address]DrTye Taylor MANUAL DIFF REQ NO Normal [facility] Comment on above: Performed By: #### C BC ####[facility] Jxafpfvtrb3255[address] [place], [place] [address]DrTye Taylor MCH (RBC) [Entitic mass] 30.4 pg Normal 26.7-34.0 [facility] Comment on above: Performed By: #### C BC ####[facility] Yupdppkdsu5058 [place] [address]Dr. Arnoldo Taylor MCHC (RBC) [Mass/Vol] 32.3 g/dL Normal 29.9-35.2 [facility] Comment on above: Performed By: #### C BC ####[facility] Wiagczsslo4615 [place] [address]DrTye Taylor MCV (RBC) [Entitic vol] 94.1 fL Normal 81.0-99.0 [facility] Comment on above: Performed By: #### C BC ####[facility] Kgpoqfclun7257[address] [place], [place] [address]DrTye Taylor MONO # 0.6 103/ul Normal 0.3-0.8 [facility] Comment on above: Performed By: #### C BC ####[facility] Tvfehfwytp4555[address] [place], [place] [address]Dr. Arnoldo Taylor Monocytes/100 WBC (Bld) 10.0 % Normal 1.7-12.0 [facility] Comment on above: Performed By: #### C BC ####[facility] Wneutnkgpf5905[address] [place], [place] [address]DrTye Taylor NEUT # 2.0 103/ul Normal 1.4-6.5 [facility] Comment on above: Performed By: #### C BC ####[facility] Yaeoowwbnq700480 [address] [place], [place] [address]Dr. Arnoldo Taylor Neutrophils/100 WBC (Bld) 31.9 % Critically low 43.0-75.0 [facility] Comment on above: Performed By: #### C BC ####[facility] Ixoxgqedub7832[address] [place], [place] [address]DrTye Taylor Platelet mean volume (Bld) [Entitic vol] 9.6 fL Normal 9.5-13.5 [facility] Comment on above: Performed By: #### C BC ####[facility] Qcbyqcmykr609480 [address] [place], [place] [address]Dr. Arnoldo Taylor PLT 116 103/ul Critically low 150-450 [facility] Comment on above: Performed By: #### C BC ####[facility] Fuumfvozlg0339 [place] [id number]. Lynettesujata Brandon RBC 3.22 106/ul Critically low 4.20-5.40 [facility] Comment on above: Performed By: #### C BC ####[facility] Jlnhgpfujf9860 [place] [address]Dr. Arnoldo Taylor WBC 6.3 103/ul Normal 4.0-11.0 [facility] Comment on above: Performed By: #### C BC ####[facility] Frwhkqwxyt1681 [place] [address]DrTye Taylor PROF 14(COMP METB)on 022 Albumin [Mass/Vol] 2.4 g/dL Critically low 3.4-5.0 [facility] Comment on above: Performed By: #### C MP ####[facility] Sjnecncpkg8090[address] [place], [place] [address]Dr. Arnoldo Taylor Albumin/Globulin [Mass ratio] 0.7 {ratio} Normal [facility] Comment on above: Performed By: #### C MP ####[facility] Mbdmckbvwd785[address] [place], [place] [address]Dr. Arnoldo Taylor ALP [Catalytic activity/Vol] 92 U/L Normal 46-116 [facility] Comment on above: Performed By: #### C MP ####[facility] Nwafxbecfc9747 [place] [address]Dr. Arnoldo Taylor ALT [Catalytic activity/Vol] 28 U/L Normal 14-59 [facility] Comment on above: Performed By: #### C MP ####[facility] Jzjlmwphsg6740 [place] [address]Dr. Arnoldo Taylor Anion gap [Moles/Vol] 9.6 mmol/L Normal [facility] Comment on above: Performed By: #### C MP ####[facility] Cqqhxplrdu9178[address] [place], [place] [address]Dr. Arnoldo Taylor AST [Catalytic activity/Vol] 25 U/L Normal 15-37 [facility] Comment on above: Performed By: #### C MP ####[facility] Fenvsqzcyc5174 [place] [address]Dr. Arnoldo Brandon Bilirubin [Mass/Vol] 0.2 mg/dL Normal 0.2-1.0 [facility] Comment on above: Performed By: #### C MP ####[facility] Xcmojawitq315480 [address] [place], [place] [address]Dr. Arnoldo Brandon Calcium [Mass/Vol] 8.3 mg/dL Critically low 8.5-10.1 [facility] Comment on above: Performed By: #### C MP ####[facility] Lzaokqqqrg099680 [address] [place], [place] [address]Dr. Arnoldo Brandon Chloride [Moles/Vol] 103 mmol/L Normal 98-107 [facility] Comment on above: Performed By: #### C MP ####[facility] Ktvhjygqwn434[address] [place], [place] [address]Dr. Arnoldo Brandon CO2 [Moles/Vol] 25.5 mmol/L Normal 21.0-32.0 The [facility] Comment on above: Performed By: #### C MP ####[facility] Icbuyukoev9467[address] [place], [place] [address]Dr. Arnoldo Brandon Creatinine [Mass/Vol] 1.17 mg/dL Critically high 0.55-1.02 [facility] Comment on above: Performed By: #### C MP ####[facility] Hrevrdjnkh732[address] [place], [place] [address]Dr. Arnoldo Brandon EGFR-AF TRISTANIAN 54 mL/min/1.73m2 Critically low >=60 [facility] Comment on above: Performed By: #### C MP ####[facility] Olgszrcutf1928[address] [place], [place] [address]Dr. Arnoldo Taylor EGFR-NON AF TRISTANIAN 45 mL/min/1.73m2 Critically low >=60 The [facility] Comment on above: Performed By: #### C MP ####[facility] Ngazhbcyey451480 [address] [place], [place] [address]Dr. Arnoldo Taylor Globulin (S) [Mass/Vol] 3.4 g/dL Normal [facility] Comment on above: Performed By: #### C MP ####[facility] Glphmebffs4926[address] [place], [place] [address]Dr. Arnoldo Taylor Glucose [Mass/Vol] 110 mg/dL Critically high 74-[address] [facility] Comment on above: Performed By: #### C MP ####[facility] Iekbjmrjuq0076[address] [place], [place] [address]Dr. Arnoldo Taylor Potassium [Moles/Vol] 4.1 mmol/L Normal 3.5-5.1 [facility] Comment on above: Performed By: #### C MP ####[facility] Rewmpwmrcv404780 [address] [place], [place] [address]Dr. Arnoldo Taylor Protein [Mass/Vol] 5.8 g/dL Critically low 6.4-8.2 Th [facility] Comment on above: Performed By: #### C MP ####[facility] Qnkybsscps7312[address] [place], [place] [address]Dr. Arnoldo Taylor Sodium [Moles/Vol] 134 mmol/L Critically low 136-145 Th [facility] Comment on above: Performed By: #### C MP ####[facility] Kmvlbasdaw9911[address] [place], [place] [address]Dr. Arnoldo Taylor Urea nitrogen [Mass/Vol] 15.0 mg/dL Normal 7.0-18.0 [facility] Comment on above: Performed By: #### C MP ####[facility] Xujqrqtzfm561280 [address] [place], [place] [address]Dr. Arnoldo Taylor Urea nitrogen/Creatinine [Mass ratio] 12.8 mg/mg Normal [facility] Comment on above: Performed By: #### C MP ####[facility] Emlvgxygfk6093[address] [place], [place] [address]Dr. Arnoldo Taylor CBC AUTO DIFFon 01-13-2022 BASO # 0.0 103/ul Normal 0.0-0.1 [facility] Comment on above: Performed By: #### C BC ####[facility] Xczshrkatb478180 [address] [place], [place] [address]Dr. Arnoldo Taylor Basophils/100 WBC (Bld) 0.2 % Normal 0.2-2.0 [facility] Comment on above: Performed By: #### C BC ####[facility] Hsjfhjzbib495180 [address] [place], [place] [address]DrTye Arnoldo Taylor EO # 0.3 103/ul Normal 0.0-0.7 [facility] Comment on above: Performed By: #### C BC ####[facility] Jpsoglqwjz863880 [address] [place], [place] [address]Dr. Arnoldo Taylor Eosinophils/100 WBC (Bld) 6.1 % Normal 0.9-7.0 [facility] Comment on above: Performed By: #### C BC ####[facility] Xmfgrkybcj3475[address] [place], [place] [address]Dr. Arnoldo Taylor Erythrocyte distribution width (RBC) [Ratio] 14.2 % Normal 11.0-15.0 [facility] Comment on above: Performed By: #### C BC ####[facility] Wgdzhrroeu050[address] [place], [place] [address]Dr. Arnoldo Taylor Hematocrit (Bld) [Volume fraction] 32.1 % Critically low 36.0-48.0 [facility] Comment on above: Performed By: #### C BC ####[facility] Qdjgafimtb040780 [address] [place], [place] [address]Dr. Arnoldo Taylor Hemoglobin (Bld) [Mass/Vol] 10.1 g/dL Critically low 12.0-16.0 [facility] Comment on above: Performed By: #### C BC ####[facility] Iwophvdybc8764[address] [place], [place] [address]Dr. Arnoldo Taylor IG # 0.01 10e3/ul Normal 0.00-0.03 [facility] Comment on above: Performed By: #### C BC ####[facility] Pacclpudww0350[address] [place], [place] [address]DrTye Arnoldo Brandon IG % 0.2 % Normal 0.0-0.5 [facility] Comment on above: Performed By: #### C BC ####[facility] Nicqztopwm728380 [address] [place], [place] [address]Dr. Arnoldo Taylor LYMPH # 2.6 103/ul Normal 1.2-3.8 [facility] Comment on above: Performed By: #### C BC ####[facility] Msxhzatjwh58[address] [place] [address]Dr. Arnoldo Taylor Lymphocytes/100 WBC (Bld) 46.8 % Normal 20.5-60.0 [facility] Comment on above: Performed By: #### C BC ####[facility] Arfhcvgyzp6463 [place] [address]Dr. Arnoldo Taylor MANUAL DIFF REQ NO Normal [facility] Comment on above: Performed By: #### C BC ####[facility] Wrhaqqjsfu4505 [place] [address]Dr. Arnoldo Taylor MCH (RBC) [Entitic mass] 30.5 pg Normal 26.7-34.0 [facility] Comment on above: Performed By: #### C BC ####[facility] Rjjuwhcipd9455[address] [place], [place] [address]Dr. Arnoldo Taylor MCHC (RBC) [Mass/Vol] 31.5 g/dL Normal 29.9-35.2 [facility] Comment on above: Performed By: #### C BC ####[facility] Lrfvsrxqjw767680 [address] [place], [place] [address]Dr. Arnoldo Taylor MCV (RBC) [Entitic vol] 97.0 fL Normal 81.0-99.0 [facility] Comment on above: Performed By: #### C BC ####[facility] Ueyleorsau0559[address] [place], [place] [address]Dr. Arnoldo Taylor MONO # 0.6 103/ul Normal 0.3-0.8 [facility] Comment on above: Performed By: #### C BC ####[facility] Bdxytpjyfo8349[address] [place], [place] [address]Dr. Arnoldo Taylor Monocytes/100 WBC (Bld) 10.6 % Normal 1.7-12.0 [facility] Comment on above: Performed By: #### C BC ####[facility] Ysgztvskio850180 [address] [place], [place] [address]Dr. Aronldo Taylor NEUT # 2.0 103/ul Normal 1.4-6.5 [facility] Comment on above: Performed By: #### C BC ####[facility] Oopjctezgb4448 [place] [address]Dr. Arnoldo Taylor Neutrophils/100 WBC (Bld) 36.1 % Critically low 43.0-75.0 [facility] Comment on above: Performed By: #### C BC ####[facility] Fdhjjcyvfj9263 [place] [address]Dr. Arnoldo Brandon Platelet mean volume (Bld) [Entitic vol] 10.3 fL Normal 9.5-13.5 [facility] Comment on above: Performed By: #### C BC ####[facility] Ajzhkzlxzu301980 [address] [place], [place] [address]DrTye Ojedasujata Brandon PLT 102 103/ul Critically low 150-450 [facility] Comment on above: Performed By: #### C BC ####[facility] Nncdtmkvnv847380 [address] [place], [place] [address]Dr. Lynettesujata Brandon RBC 3.31 106/ul Critically low 4.20-5.40 [facility] Comment on above: Performed By: #### C BC ####[facility] Ckcvhvkbrt6656[address] [place], [place] [address]DrTye Arnoldo Brandon WBC 5.6 103/ul Normal 4.0-11.0 [facility] Comment on above: Performed By: #### C BC ####[facility] Gciafqdrjd459280 [address] [place], [place] [address]DrTye Taylor PROF 14(COMP METB)on 022 Albumin [Mass/Vol] 2.5 g/dL Critically low 3.4-5.0 [facility] Comment on above: Performed By: #### C MP ####[facility] Vfaafcrzsd540580 [address] [place], [place] [address]DrTye Taylor Albumin/Globulin [Mass ratio] 0.7 {ratio} Normal [facility] Comment on above: Performed By: #### C MP ####[facility] Nomylhzoft3513[address] [place], [place] [address]Dr. Arnoldo Brandon ALP [Catalytic activity/Vol] 109 U/L Normal 46-116 [facility] Comment on above: Performed By: #### C MP ####[facility] Fvdwinqrbb5167 [place] [address]Dr. Arnoldo Brandon ALT [Catalytic activity/Vol] 33 U/L Normal 14-59 [facility] Comment on above: Performed By: #### C MP ####[facility] Eidavjuiyt1578 [place] [address]Dr. Arnoldo Brandon Anion gap [Moles/Vol] 10.1 mmol/L Normal [facility] Comment on above: Performed By: #### C MP ####[facility] Uywwautjcz9677[address] [place], [place] [address]Dr. Arnoldo Brandon AST [Catalytic activity/Vol] 39 U/L Critically high 15-37 [facility] Comment on above: Performed By: #### C MP ####[facility] Hgshkxllet119680 [address] [place], [place] [address]Dr. Arnoldo Brandon Bilirubin [Mass/Vol] 0.1 mg/dL Critically low 0.2-1.0 [facility] Comment on above: Performed By: #### C MP ####[facility] Tkqmwydfrg840680 [address] [place], [place] [address]Dr. Arnoldo Taylor Calcium [Mass/Vol] 8.4 mg/dL Critically low 8.5-10.1 Th [facility] Comment on above: Performed By: #### C MP ####[facility] Bdupbejvqk6396 [place] [address]Dr. Lynettesujata Talyor Chloride [Moles/Vol] 104 mmol/L Normal 98-107 [facility] Comment on above: Performed By: #### C MP ####[facility] Fbnppiiwcu1397[address] [place], [place] [address]Dr. Arnoldo Taylor CO2 [Moles/Vol] 26.3 mmol/L Normal 21.0-32.0 [facility] Comment on above: Performed By: #### C MP ####[facility] Jhvohunklx9817[address] [place], [place] [address]Dr. Arnoldo Taylor Creatinine [Mass/Vol] 1.10 mg/dL Critically high 0.55-1.02 [facility] Comment on above: Performed By: #### C MP ####[facility] Fjszgfxykb3729 [place] [address]Dr. Arnoldo Taylor EGFR-AF TRISTANIAN 58 mL/min/1.73m2 Critically low >=60 [facility] Comment on above: Performed By: #### C MP ####[facility] Ngyzzfhmfq5391 [place] [id number]. Arnoldo Brandon EGFR-NON AF TRISTANIAN 48 mL/min/1.73m2 Critically low >=60 [facility] Comment on above: Performed By: #### C MP ####[facility] Xvkbavsiub615[address] [place], [place] [address]Dr. Arnoldo Taylor Globulin (S) [Mass/Vol] 3.5 g/dL Normal [facility] Comment on above: Performed By: #### C MP ####[facility] Pqbevnnckx66[address] [place], [place] [address]Dr. Arnoldo Taylor Glucose [Mass/Vol] 103 mg/dL Normal 74-106 [facility] Comment on above: Performed By: #### C MP ####[facility] Hqxupsrijw840480 [address] [place], [place] [address]Dr. Arnoldo Taylor Potassium [Moles/Vol] 4.4 mmol/L Normal 3.5-5.1 [facility] Comment on above: Performed By: #### C MP ####[facility] Etfcmqdcvh1907 [place] [address]Dr. Arnoldo Taylor Protein [Mass/Vol] 6.0 g/dL Critically low 6.4-8.2 Th e [facility] Comment on above: Performed By: #### C MP ####[facility] Kbgtokfvjy8330[address] [place], [place] [address]Dr. Arnoldo Taylor Sodium [Moles/Vol] 136 mmol/L Normal 136-145 [facility] Comment on above: Performed By: #### C MP ####[facility] Ldbuouszut6245[address] [place], [place] [address]Dr. Arnoldo Taylor Urea nitrogen [Mass/Vol] 15.0 mg/dL Normal 7.0-18.0 [facility] Comment on above: Performed By: #### C MP ####[facility] Qubcekqqiy8855[address] [place], [place] [address]Dr. Arnoldo Taylor Urea nitrogen/Creatinine [Mass ratio] 13.6 mg/mg Normal [facility] Comment on above: Performed By: #### C MP ####[facility] Bixpjwydic7366[address] [place], [place] [address]Dr. Arnoldo Taylor XR CHEST 2 Von 01-13-2022 XR CHEST 2 V Normal [facility] CBC AUTO DIFFon 01-12-2022 BASO # 0.0 103/ul Normal 0.0-0.1 [facility] Comment on above: Performed By: #### C BC ####[facility] Dewtibekzw4254[address] [place], [place] [address]Dr. Arnoldo Brandon Basophils/100 WBC (Bld) 0.2 % Normal 0.2-2.0 [facility] Comment on above: Performed By: #### C BC ####[facility] Irdwqhyrmj624[address] [place], [place] [address]Dr. Arnlodo Taylor EO # 0.3 103/ul Normal 0.0-0.7 [facility] Comment on above: Performed By: #### C BC ####[facility] Qcgguubnus5117[address] [place], [place] [address]Dr. Arnoldo Taylor Eosinophils/100 WBC (Bld) 5.0 % Normal 0.9-7.0 [facility] Comment on above: Performed By: #### C BC ####[facility] Wnbtifgriu78[address] [place], [place] [address]Dr. Arnoldo Taylor Erythrocyte distribution width (RBC) [Ratio] 14.2 % Normal 11.0-15.0 [facility] Comment on above: Performed By: #### C BC ####[facility] Poctgreaxd2069[address] [place], [place] [address]Dr. Arnoldo Taylor Hematocrit (Bld) [Volume fraction] 29.6 % Critically low 36.0-48.0 [facility] Comment on above: Performed By: #### C BC ####[facility] Qlqaqqbclo5941 [place] [phone]. Arnoldo Taylor Hemoglobin (Bld) [Mass/Vol] 9.4 g/dL Critically low 12.0-16.0 [facility] Comment on above: Performed By: #### C BC ####[facility] Beppuzcddi0199 [place] [id number]. Arnoldo Taylor IG # 0.02 10e3/ul Normal 0.00-0.03 [facility] Comment on above: Performed By: #### C BC ####[facility] Vxrwnirpgt2406 [place] [address]Dr. Arnoldo Taylor IG % 0.4 % Normal 0.0-0.5 [facility] Comment on above: Performed By: #### C BC ####[facility] Rzbyamfmza4566 [place] [address]Dr. Arnoldo Taylor LYMPH # 2.7 103/ul Normal 1.2-3.8 [facility] Comment on above: Performed By: #### C BC ####[facility] Wefyxvxgre7157 [place] [phone]. Arnoldo Taylor Lymphocytes/100 WBC (Bld) 48.9 % Normal 20.5-60.0 [facility] Comment on above: Performed By: #### C BC ####[facility] Zcobtquovi2184 [place] [phone]. Arnoldo Taylor MANUAL DIFF REQ NO Normal [facility] Comment on above: Performed By: #### C BC ####[facility] Vvcbizjech9123 [place] [phone]. Arnoldo Taylor MCH (RBC) [Entitic mass] 30.5 pg Normal 26.7-34.0 [facility] Comment on above: Performed By: #### C BC ####[facility] Xiasmeynjz0248 [place] [phone]. Arnoldo Taylor MCHC (RBC) [Mass/Vol] 31.8 g/dL Normal 29.9-35.2 [facility] Comment on above: Performed By: #### C BC ####[facility] Cwaktfrajr5512 [place] [phone]. Arnoldo Taylor MCV (RBC) [Entitic vol] 96.1 fL Normal 81.0-99.0 [facility] Comment on above: Performed By: #### C BC ####[facility] Bvdokubjud7638 [place] [phone]. Arnoldo Taylor MONO # 0.7 103/ul Normal 0.3-0.8 [facility] Comment on above: Performed By: #### C BC ####[facility] Axnzpiljxn8119 [place] [phone]. Arnoldo Taylor Monocytes/100 WBC (Bld) 13.2 % Critically high 1.7-12.0 [facility] Comment on above: Performed By: #### C BC ####[facility] Jqyyurihwe4872[address] [place], [place] [address]Dr. Arnoldo Taylor NEUT # 1.8 103/ul Normal 1.4-6.5 [facility] Comment on above: Performed By: #### C BC ####[facility] Jscumppjli[address] [place], [place] [address]Dr. Arnoldo Taylor Neutrophils/100 WBC (Bld) 32.3 % Critically low 43.0-75.0 [facility] Comment on above: Performed By: #### C BC ####[facility] Mexpsukteg06[address] [place], [place] [address]Dr. Arnoldo Taylor Platelet mean volume (Bld) [Entitic vol] 9.6 fL Normal 9.5-13.5 [facility] Comment on above: Performed By: #### C BC ####[facility] Igtvenhybz1951 [place] [phone]. Arnoldo Taylor PLT 106 103/ul Critically low 150-450 The [facility] Comment on above: Performed By: #### C BC ####[facility] Iadzrxuqah7833 [place] [phone]. Arnoldo Taylor RBC 3.08 106/ul Critically low 4.20-5.40 [facility] Comment on above: Performed By: #### C BC ####[facility] Xpjmagnkpf8832 [place] [address]Dr. Arnoldo Taylor WBC 5.4 103/ul Normal 4.0-11.0 [facility] Comment on above: Performed By: #### C BC ####[facility] Quvcvfujiw2415 [place] [address]Dr. Arnoldo Taylor PROF 14(COMP METB)on 022 Albumin [Mass/Vol] 2.3 g/dL Critically low 3.4-5.0 Th [facility] Comment on above: Performed By: #### C MP ####[facility] Zuvletfriz4652 [place] [address]Dr. Arnoldo Taylor Albumin/Globulin [Mass ratio] 0.7 {ratio} Normal [facility] Comment on above: Performed By: #### C MP ####[facility] Ywkchmlylv09[address] [place], [place] [address]Dr. Arnoldo Taylor ALP [Catalytic activity/Vol] 105 U/L Normal 46-116 [facility] Comment on above: Performed By: #### C MP ####[facility] Yfewmzemqx7979 [place] [address]Dr. Arnoldo Taylor ALT [Catalytic activity/Vol] 34 U/L Normal 14-59 [facility] Comment on above: Performed By: #### C MP ####[facility] Kcwtgymagl5778 [place] [address]Dr. Arnoldo Taylor Anion gap [Moles/Vol] 9.7 mmol/L Normal [facility] Comment on above: Performed By: #### C MP ####[facility] Nzeozawaxh8036 [place] [address]Dr. Arnoldo Taylor AST [Catalytic activity/Vol] 44 U/L Critically high 15-37 [facility] Comment on above: Performed By: #### C MP ####[facility] Yplsqhgjhl5854 [place] [address]Dr. Arnoldo Taylor Bilirubin [Mass/Vol] 0.2 mg/dL Normal 0.2-1.0 [facility] Comment on above: Performed By: #### C MP ####[facility] Tcdtdwgmxl5086 [place] [phone]. Arnoldo Taylor Calcium [Mass/Vol] 8.2 mg/dL Critically low 8.5-10.1 Th [facility] Comment on above: Performed By: #### C MP ####[facility] Tnnhczylwl9763 [place] [phone]. Arnoldo Taylor Chloride [Moles/Vol] 107 mmol/L Normal 98-107 [facility] Comment on above: Performed By: #### C MP ####[facility] Nrkevmtbvx2694 [place] [phone]. Arnoldo Taylor CO2 [Moles/Vol] 25.3 mmol/L Normal 21.0-32.0 [facility] Comment on above: Performed By: #### C MP ####[facility] Utdqqibvze4984 [place] [address]Dr. Arnoldo Taylor Creatinine [Mass/Vol] 1.05 mg/dL Critically high 0.55-1.02 [facility] Comment on above: Performed By: #### C MP ####[facility] Gmsntvzaxd[address] [place] [address]Dr. Arnoldo Taylor EGFR-AF TRISTANIAN >60 Normal >=60 [facility] Comment on above: Performed By: #### C MP ####[facility] Zuujptjubp5347 [place] [id number]. Arnoldo Taylor EGFR-NON AF TRISTANIAN 51 mL/min/1.73m2 Critically low >=60 [facility] Comment on above: Performed By: #### C MP ####[facility] Ilbqgnqlmg9326 [place] [phone]. Arnoldo Taylor Globulin (S) [Mass/Vol] 3.4 g/dL Normal [facility] Comment on above: Performed By: #### C MP ####[facility] Ipuoqvabxz1934 [place] [phone]. Arnoldo Taylor Glucose [Mass/Vol] 109 mg/dL Critically high 74-[address] [facility] Comment on above: Performed By: #### C MP ####[facility] Lqlvgtfgka2418 [place] [phone]. Arnoldo Taylor Potassium [Moles/Vol] 4.0 mmol/L Normal 3.5-5.1 [facility] Comment on above: Performed By: #### C MP ####[facility] Qhqfjdbwbd4652 [place] [phone]. Arnoldo Taylor Protein [Mass/Vol] 5.7 g/dL Critically low 6.4-8.2 [facility] Comment on above: Performed By: #### C MP ####[facility] Xvodmnvzwa7[address] [place], [place] [address]Dr. Arnoldo Taylor Sodium [Moles/Vol] 138 mmol/L Normal 136-145 [facility] Comment on above: Performed By: #### C MP ####[facility] Vmpckagixc1835[address] [place], [place] [address]Dr. Arnoldo Taylor Urea nitrogen [Mass/Vol] 14.0 mg/dL Normal 7.0-18.0 [facility] Comment on above: Performed By: #### C MP ####[facility] Gkdafglfan2768[address] [place], [place] [address]Dr. Arnoldo Taylor Urea nitrogen/Creatinine [Mass ratio] 13.3 mg/mg Normal [facility] Comment on above: Performed By: #### C MP ####[facility] Yzdfwqyfor1058[address] [place], [place] [address]Dr. Arnoldo Brandon CBC AUTO DIFFon 01-11-2022 BASO # 0.0 103/ul Normal 0.0-0.1 [facility] Comment on above: Performed By: #### C BC ####[facility] Xfwyvdjgxr3260[address] [place], [place] [address]Dr. Arnoldo Brandon Basophils/100 WBC (Bld) 0.2 % Normal 0.2-2.0 [facility] Comment on above: Performed By: #### C BC ####[facility] Qhbxffphea6200[address] [place], [place] [address]Dr. Arnoldo Taylor EO # 0.2 103/ul Normal 0.0-0.7 [facility] Comment on above: Performed By: #### C BC ####[facility] Vimdkxdmoj8185 [place] [address]Dr. Arnoldo Taylor Eosinophils/100 WBC (Bld) 3.6 % Normal 0.9-7.0 The [facility] Comment on above: Performed By: #### C BC ####[facility] Znpnqqhjhn4556[address] [place], [place] [address]Dr. Arnoldo Taylor Erythrocyte distribution width (RBC) [Ratio] 14.0 % Normal 11.0-15.0 The [facility] Comment on above: Performed By: #### C BC ####[facility] Pqtfywxlch285[address] [place], [place] [address]Dr. Arnoldo Taylor Hematocrit (Bld) [Volume fraction] 31.9 % Critically low 36.0-48.0 [facility] Comment on above: Performed By: #### C BC ####[facility] Mlzfgavmrl6712[address] [place], [place] [address]Dr. Arnoldo Taylor Hemoglobin (Bld) [Mass/Vol] 10.1 g/dL Critically low 12.0-16.0 [facility] Comment on above: Performed By: #### C BC ####[facility] Pihtqfmanm7003[address] [place], [place] [address]Dr. Arnoldo Taylor IG # 0.01 10e3/ul Normal 0.00-0.03 [facility] Comment on above: Performed By: #### C BC ####[facility] Rafwcxljfx3293[address] [place], [place] [address]Dr. Arnoldo Taylor IG % 0.2 % Normal 0.0-0.5 [facility] Comment on above: Performed By: #### C BC ####[facility] Xkazvmsopf760[address] [place], [place] [address]Dr. Arnoldo Taylor LYMPH # 2.1 103/ul Normal 1.2-3.8 The [facility] Comment on above: Performed By: #### C BC ####[facility] Zrehboredg786[address] [place], [place] [address]Dr. Arnoldo Taylor Lymphocytes/100 WBC (Bld) 39.1 % Normal 20.5-60.0 [facility] Comment on above: Performed By: #### C BC ####[facility] Epfuipprnf8246 [place] [id number]. Arnoldo Taylor MANUAL DIFF REQ NO Normal [facility] Comment on above: Performed By: #### C BC ####[facility] Fojswvoeec1114 [place] [phone]. Arnoldo Taylor MCH (RBC) [Entitic mass] 30.4 pg Normal 26.7-34.0 [facility] Comment on above: Performed By: #### C BC ####[facility] Ttqbompbeh9747 [place] [phone]. Arnoldo Taylor MCHC (RBC) [Mass/Vol] 31.7 g/dL Normal 29.9-35.2 [facility] Comment on above: Performed By: #### C BC ####[facility] Rljlsjdlgw8714 [place] [address]Dr. Arnoldo Taylor MCV (RBC) [Entitic vol] 96.1 fL Normal 81.0-99.0 [facility] Comment on above: Performed By: #### C BC ####[facility] Pwlzxgchul87[address] [place], [place] [address]Dr. Arnoldo Taylor MONO # 0.9 103/ul Critically high 0.3-0.8 [facility] Comment on above: Performed By: #### C BC ####[facility] Tgeswqfkwf066[address] [place], [place] [address]Dr. Arnoldo Taylor Monocytes/100 WBC (Bld) 16.8 % Critically high 1.7-12.0 [facility] Comment on above: Performed By: #### C BC ####[facility] Auxrfbejhw6572 [place] [phone]. Arnoldo Taylor NEUT # 2.1 103/ul Normal 1.4-6.5 The [facility] Comment on above: Performed By: #### C BC ####[facility] Waydwxdaah46[address] [place], [place] [address]Dr. Arnoldo Taylor Neutrophils/100 WBC (Bld) 40.1 % Critically low 43.0-75.0 The [facility] Comment on above: Performed By: #### C BC ####[facility] Gtjbmscmtl2446 [place] [phone]. Arnoldo Taylor Platelet mean volume (Bld) [Entitic vol] 9.7 fL Normal 9.5-13.5 The [facility] Comment on above: Performed By: #### C BC ####[facility] Qndkjwjhju4786 [place] [phone]. Arnoldo Taylor PLT 115 103/ul Critically low 150-450 [facility] Comment on above: Performed By: #### C BC ####[facility] Mxnlgjsimw0202 [place] [address]Dr. Arnoldo Taylor RBC 3.32 106/ul Critically low 4.20-5.40 [facility] Comment on above: Performed By: #### C BC ####[facility] Rtxtdvaupk3217 [place] [address]Dr. Arnoldo Taylor WBC 5.2 103/ul Normal 4.0-11.0 [facility] Comment on above: Performed By: #### C BC ####[facility] Inszdnnctd7300 [place] [address]Dr. Arnoldo Taylor Basophils/100 WBC (Bld) 0.0 % Critically low 0.2-2.0 [facility] Comment on above: Performed By: #### C BC ####[facility] Fwzudssuzu2718 [place] [address]Dr. Arnoldo Taylor Eosinophils/100 WBC (Bld) 4.5 % Normal 0.9-7.0 [facility] Comment on above: Performed By: #### C BC ####[facility] Estusywtjt7800 [place] [address]Dr. Arnoldo Taylor Erythrocyte distribution width (RBC) [Ratio] 13.8 % Normal 11.0-15.0 [facility] Comment on above: Performed By: #### C BC ####[facility] Wcqojuoqxs3348 [place] [address]Dr. Arnoldo Taylor Hematocrit (Bld) [Volume fraction] 30.5 % Critically low 36.0-48.0 [facility] Comment on above: Performed By: #### C BC ####[facility] Meimoemgpf1321 [place] [address]Dr. Arnoldo Taylor Hemoglobin (Bld) [Mass/Vol] 9.8 g/dL Critically low 12.0-16.0 [facility] Comment on above: Performed By: #### C BC ####[facility] Kmgeeflldt1210 [place] [address]Dr. Arnoldo Taylor IG # 0.00 10e3/ul Normal 0.00-0.03 [facility] Comment on above: Performed By: #### C BC ####[facility] Iwpwamdvnu2787 [place] [address]Dr. Arnoldo Taylor IG % 0.0 % Normal 0.0-0.5 [facility] Comment on above: Performed By: #### C BC ####[facility] Qthwliusyg7498 [place] [address]Dr. Arnoldo Taylor LYMPH # 1.8 103/ul Normal 1.2-3.8 [facility] Comment on above: Performed By: #### C BC ####[facility] Psyfykdxgf7854 [place] [address]Dr. Arnoldo Taylor Lymphocytes/100 WBC (Bld) 41.3 % Normal 20.5-60.0 [facility] Comment on above: Performed By: #### C BC ####[facility] Wlhhlmlzmn9057 [place] [address]Dr. Arnoldo Taylor MCH (RBC) [Entitic mass] 30.8 pg Normal 26.7-34.0 [facility] Comment on above: Performed By: #### C BC ####[facility] Pxcrnkjane7931 [place] [address]Dr. Arnoldo Taylor MCHC (RBC) [Mass/Vol] 32.1 g/dL Normal 29.9-35.2 The [facility] Comment on above: Performed By: #### C BC ####[facility] Plwsghxtyt6130 [place] [address]DrTye Arnoldo Taylor MCV (RBC) [Entitic vol] 95.9 fL Normal 81.0-99.0 [facility] Comment on above: Performed By: #### C BC ####[facility] Jjvvvfmchn9339 [place] [address]Dr. Arnoldo Taylor MONO # 0.7 103/ul Normal 0.3-0.8 The [facility] Comment on above: Performed By: #### C BC ####[facility] Hbjnbmsszw0264 [place] [address]Dr. Arnoldo Taylor Monocytes/100 WBC (Bld) 16.3 % Critically high 1.7-12.0 [facility] Comment on above: Performed By: #### C BC ####[facility] Wbtkqsgnlx2123 [place] [address]Dr. Arnoldo Taylor NEUT # 1.7 103/ul Normal 1.4-6.5 [facility] Comment on above: Performed By: #### C BC ####[facility] Pwbdayzrjx9381 [place] [address]Dr. Arnoldo Taylor Neutrophils/100 WBC (Bld) 37.9 % Critically low 43.0-75.0 [facility] Comment on above: Performed By: #### C BC ####[facility] Brpriasdmt5134 [place] [address]Dr. Arnolod Taylor Platelet mean volume (Bld) [Entitic vol] 9.4 fL Critically low 9.5-13.5 The [facility] Comment on above: Performed By: #### C BC ####[facility] Edickgpdym5557 [place] [phone]. Arnoldo Taylor PLT 94 103/ul Critically low 150-450 [facility] Comment on above: Performed By: #### C BC ####[facility] Knbfqjlcmc0954 [place] [address]Dr. Lynettesujata Taylor RBC 3.18 106/ul Critically low 4.20-5.40 [facility] Comment on above: Performed By: #### C BC ####[facility] Pjzexnpyfc3481 [place] [address]Dr. Arnoldo Brandon WBC 4.4 103/ul Normal 4.0-11.0 [facility] Comment on above: Performed By: #### C BC ####[facility] Yilyzcnlpc9272 [place] [address]DrTye Taylor PROF 14(COMP METB)on 022 Albumin [Mass/Vol] 2.4 g/dL Critically low 3.4-5.0 Th e [facility] Comment on above: Performed By: #### C MP ####[facility] Tcparzaxnp0463 [place] [address]DrTye Taylor Albumin/Globulin [Mass ratio] 0.7 {ratio} Normal [facility] Comment on above: Performed By: #### C MP ####[facility] Ugmaffolaw3903 [place] [address]Dr. Arnoldo Taylor ALP [Catalytic activity/Vol] 113 U/L Normal 46-116 [facility] Comment on above: Performed By: #### C MP ####[facility] Kgcwkmazfe15[address] [place], [place] [address]Dr. Arnoldo Taylor ALT [Catalytic activity/Vol] 21 U/L Normal 14-59 [facility] Comment on above: Performed By: #### C MP ####[facility] Zbghswpxzf3792 [place] [address]Dr. Arnoldo Taylor Anion gap [Moles/Vol] 8.8 mmol/L Normal [facility] Comment on above: Performed By: #### C MP ####[facility] Wrokwzyazc1597 [place] [address]Dr. Arnoldo Taylor AST [Catalytic activity/Vol] 31 U/L Normal 15-37 The [facility] Comment on above: Performed By: #### C MP ####[facility] Wdayzxurjn1877 [place] [address]DrTye Taylor Bilirubin [Mass/Vol] 0.2 mg/dL Normal 0.2-1.0 The [facility] Comment on above: Performed By: #### C MP ####[facility] Pmuwebrutn2296 [place] [address]DrTye Taylor Calcium [Mass/Vol] 8.2 mg/dL Critically low 8.5-10.1 Th e [facility] Comment on above: Performed By: #### C MP ####[facility] Fnhbrowbgc1102 [place] [address]Dr. Arnoldo Taylor Chloride [Moles/Vol] 108 mmol/L Critically high 98-107 [facility] Comment on above: Performed By: #### C MP ####[facility] Rslzjfdicd4010 [place] [address]Dr. Arnoldo Taylor CO2 [Moles/Vol] 26.8 mmol/L Normal 21.0-32.0 [facility] Comment on above: Performed By: #### C MP ####[facility] Nyfymsaxyi1169 [place] [address]Dr. Arnoldo Taylor Creatinine [Mass/Vol] 0.94 mg/dL Normal 0.55-1.02 [facility] Comment on above: Performed By: #### C MP ####[facility] Shfwhvwfrs6835 [place] [address]Dr. Arnoldo Taylor EGFR-AF TRISTANIAN >60 Normal >=60 [facility] Comment on above: Performed By: #### C MP ####[facility] Efkqrmabug3846 [place] [address]Dr. Arnoldo Taylor EGFR-NON AF TRISTANIAN 57 mL/min/1.73m2 Critically low >=60 [facility] Comment on above: Performed By: #### C MP ####[facility] Mravatyoau5670 [place] [address]Dr. Arnoldo Taylor Globulin (S) [Mass/Vol] 3.3 g/dL Normal [facility] Comment on above: Performed By: #### C MP ####[facility] Eouiushlwp4990 [place] [address]Dr. Arnoldo Taylor Glucose [Mass/Vol] 106 mg/dL Normal 74-106 [facility] Comment on above: Performed By: #### C MP ####[facility] Kfwinzzzwb3476 [place] [address]Dr. Lynettesujata Brandon Potassium [Moles/Vol] 3.6 mmol/L Normal 3.5-5.1 [facility] Comment on above: Performed By: #### C MP ####[facility] Tutpihehyp4278 [place] [phone]. Arnoldo Taylor Protein [Mass/Vol] 5.7 g/dL Critically low 6.4-8.2 Th e [facility] Comment on above: Performed By: #### C MP ####[facility] Ptqvayxqmf9333 [place] [phone]. Arnoldo Taylor Sodium [Moles/Vol] 140 mmol/L Normal 136-145 [facility] Comment on above: Performed By: #### C MP ####[facility] Boiwvqvohc27[address] [place], [place] [address]Dr. Arnoldo Taylor Urea nitrogen [Mass/Vol] 13.0 mg/dL Normal 7.0-18.0 [facility] Comment on above: Performed By: #### C MP ####[facility] Ambvvavcev6367[address] [place], [place] [address]Dr. Arnoldo Taylor Urea nitrogen/Creatinine [Mass ratio] 13.8 mg/mg Normal [facility] Comment on above: Performed By: #### C MP ####[facility] Nhzmysyttr014[address] [place], [place] [address]Dr. Arnoldo Taylor CBC AUTO DIFFon 01-10-2022 BASO # 0.0 103/ul Normal 0.0-0.1 [facility] Comment on above: Performed By: #### C BC ####[facility] Tfeerhsitt1309[address] [place], [place] [address]Dr. Arnoldo Taylor Basophils/100 WBC (Bld) 0.1 % Critically low 0.2-2.0 [facility] Comment on above: Performed By: #### C BC ####[facility] Thypqmpygl248[address] [place], [place] [address]Dr. Arnoldo Taylor EO # 0.1 103/ul Normal 0.0-0.7 [facility] Comment on above: Performed By: #### C BC ####[facility] Okicaeatly778[address] [place], [place] [address]Dr. Arnoldo Brandon Eosinophils/100 WBC (Bld) 1.6 % Normal 0.9-7.0 [facility] Comment on above: Performed By: #### C BC ####[facility] Djlzymnyrh3521 [place] [address]Dr. Arnoldo Brandon Erythrocyte distribution width (RBC) [Ratio] 13.2 % Normal 11.0-15.0 [facility] Comment on above: Performed By: #### C BC ####[facility] Ebnkczhluz5131 [place] [address]Dr. Arnoldo Taylor Hematocrit (Bld) [Volume fraction] 35.4 % Critically low 36.0-48.0 [facility] Comment on above: Performed By: #### C BC ####[facility] Wtbtyjsrms709[address] [place], [place] [address]Dr. Arnoldo Taylor Hemoglobin (Bld) [Mass/Vol] 11.6 g/dL Critically low 12.0-16.0 [facility] Comment on above: Performed By: #### C BC ####[facility] Uompkaudrq356[address] [place], [place] [address]Dr. Arnoldo Taylor IG # 0.08 10e3/ul Critically high 0.00-0.03 [facility] Comment on above: Performed By: #### C BC ####[facility] Fshaanmswv6688[address] [place], [place] [address]Dr. Arnoldo Taylor IG % 1.2 % Critically high 0.0-0.5 [facility] Comment on above: Performed By: #### C BC ####[facility] Dgulttkvdd020[address] [place], [place] [address]Dr. Arnoldo Taylor LYMPH # 1.8 103/ul Normal 1.2-3.8 [facility] Comment on above: Performed By: #### C BC ####[facility] Zrhjevulsa9084[address] [place], [place] [address]Dr. Arnoldo Taylor Lymphocytes/100 WBC (Bld) 26.6 % Normal 20.5-60.0 [facility] Comment on above: Performed By: #### C BC ####[facility] Yfsmwnpkqx2113[address] [place], [place] [address]Dr. Arnoldo Taylor MANUAL DIFF REQ NO Normal [facility] Comment on above: Performed By: #### C BC ####[facility] Gdbcovuoem9951 [place] [address]Dr. Arnoldo Taylor MCH (RBC) [Entitic mass] 30.5 pg Normal 26.7-34.0 [facility] Comment on above: Performed By: #### C BC ####[facility] Wyvisxigpg8959 [place] [address]Dr. Arnoldo Taylor MCHC (RBC) [Mass/Vol] 32.8 g/dL Normal 29.9-35.2 [facility] Comment on above: Performed By: #### C BC ####[facility] Sicfeghrjw549[address] [place], [place] [address]Dr. Arnoldo Taylor MCV (RBC) [Entitic vol] 93.2 fL Normal 81.0-99.0 [facility] Comment on above: Performed By: #### C BC ####[facility] Gdjciypixz1140[address] [place], [place] [address]DrTye Taylor MONO # 0.9 103/ul Critically high 0.3-0.8 [facility] Comment on above: Performed By: #### C BC ####[facility] Ngrkjnxmpz4676[address] [place], [place] [address]DrTye Taylor Monocytes/100 WBC (Bld) 13.6 % Critically high 1.7-12.0 [facility] Comment on above: Performed By: #### C BC ####[facility] Lpsnyvltbn4014[address] [place], [place] [address]DrTye Taylor NEUT # 3.8 103/ul Normal 1.4-6.5 [facility] Comment on above: Performed By: #### C BC ####[facility] Bhdcnvwzsb8545[address] [place], [place] [address]DrTye Taylor Neutrophils/100 WBC (Bld) 56.9 % Normal 43.0-75.0 [facility] Comment on above: Performed By: #### C BC ####[facility] Ahmqmfuagf8565[address] [place], [place] [address]DrTye Taylor Platelet mean volume (Bld) [Entitic vol] 10.0 fL Normal 9.5-13.5 The [facility] Comment on above: Performed By: #### C BC ####[facility] Mzyrowxvnw8481 [place] [address]Dr. Arnoldo Taylor PLT 128 103/ul Critically low 150-450 The [facility] Comment on above: Performed By: #### C BC ####[facility] Idbdrnulrv8020 [place] [phone]. Arnoldo Taylor RBC 3.80 106/ul Critically low 4.20-5.40 [facility] Comment on above: Performed By: #### C BC ####[facility] Mhnbfbxjvl4568 [place] [address]Dr. Arnoldo Taylor WBC 6.7 103/ul Normal 4.0-11.0 [facility] Comment on above: Performed By: #### C BC ####[facility] Sulxhudwnp4729 [place] [address]Dr. Arnoldo Taylor CT HEAD WO CONon 01-10-2022 CT HEAD WO CON Normal [facility] CULTURE URINEon 01-10-2022 CULTURE URINE Culture Observations : LIGHT GROWTH OF MIXED GENITAL ZAYRA. NO POTENTIAL PATHOGENS SEEN. Normal The [facility] Comment on above: Performed By: #### U RCX ####[facility] Udypcphgnt4183[address] [place], [place] [address]Dr. Arnoldo Brandon ER URINE PROFILEon 2 Bilirubin Ql (U) Negative Normal NEGATIVE The [facility] Comment on above: Performed By: #### CHARLY WRIGHTRO ####[facility] Qynkosshws9863 [place] [phone]. Arnoldo Taylor Clarity (U) CLEAR Normal CLEAR [facility] Comment on above: Performed By: #### CHARLY WRIGHTRO ####[facility] Shgiecctxg2127 [place] [phone]. Arnoldo Taylor Color (U) LT. YELLOW Normal YELLOW [facility] Comment on above: Performed By: #### CHARLY WRIGHTRO ####[facility] Szxscfxcak372[address] [place], [place] [address]Dr. Arnoldo SIMMONS A micrscopic examination will be performed if indicated. Normal The [facility] Comment on above: Performed By: #### JESSICA WRIGHT ####[facility] Wzkjixmwhj2513[address] [place], [place] [address]Dr. Arnoldo Taylor Glucose Ql (U) Negative Normal NEGATIVE The [facility] Comment on above: Performed By: #### JESSICA WRIGHT ####[facility] Xlgjgswdrv3487[address] [place], [place] [address]Dr. Arnoldo Taylor Hemoglobin Ql (U) TRACE-INTACT Abnormal NEGATIVE [facility] Comment on above: Performed By: #### JESSICA WRIGHT ####[facility] Qpohvlqxhk6143[address] [place], [place] [address]Dr. Arnoldo Taylor Ketones Ql (U) 15 mg/dl Abnormal NEGATIVE The [facility] Comment on above: Performed By: #### JESSICA WRIGHT ####[facility] Ythodkqdfe369[address] [place], [place] [address]Dr. Arnoldo Taylor LEUKOCYTES SMALL Abnormal NEGATIVE [facility] Comment on above: Performed By: #### JESSICA WRIGHT ####[facility] Hivdueinpj7914[address] [place], [place] [address]Dr. Arnoldo Taylor Nitrite Ql (U) Negative Normal NEGATIVE The [facility] Comment on above: Performed By: #### JESSICA WRIGHT ####[facility] Dqtmioisqp4054[address] [place], [place] [address]Dr. Arnoldo Taylor pH (U) 8.5 [pH] Normal 5-9 [facility] Comment on above: Performed By: #### JESSICA WRIGHT ####[facility] Yxlickbfiy7423[address] [place], [place] [address]Dr. Arnoldo Taylor SPEC GRAVITY 1.015 Normal 1.005-<=1.025 [facility] Comment on above: Performed By: #### JESSICA WRIGHT ####[facility] Vuvhbwbvgz4678[address] [place], [place] [address]Dr. Arnoldo Taylor UA PROTEIN Negative Normal NEGATIVE/ TRACE [facility] Comment on above: Performed By: #### E JACEK UMICRO ####[facility] Mdlegvbkqc6287 [place] [address]Dr. Arnoldo Taylor UR MICRO IND INDICATED Normal [facility] Comment on above: Performed By: #### E JACEK UMICRO ####[facility] Bkygqwegjf3401 [place] [address]Dr. Arnoldo Taylor Urobilinogen Qn (U) 0.2 {Adrienne'U}/dL Normal 0.2 - 1. 0 [facility] Comment on above: Performed By: #### CHARLY WRIGHTRO ####[facility] Qinmuzqgnb782[address] [place], [place] [address]Dr. Arnoldo Taylor LACTATE/LACTIC ACIDon 2021 Lactate [Moles/Vol] 2.1 mmol/L Critically high 0.4-1.9 [facility] Comment on above: Performed By: #### L ACT ####[facility] Kawpafnlar1259 [place] [address]Dr. Arnoldo Taylor Lactate [Moles/Vol] 1.0 mmol/L Normal 0.4-1.9 [facility] Comment on above: Performed By: #### L ACT ####[facility] Npaddzarsd218[address] [place], [place] [address]Dr. Arnoldo Taylor PROF 14(COMP METB)on 022 Albumin [Mass/Vol] 2.8 g/dL Critically low 3.4-5.0 [facility] Comment on above: Performed By: #### C MP ####[facility] Wjvlbwnqsc4505 [place] [address]Dr. Arnoldo Taylor Albumin/Globulin [Mass ratio] 0.8 {ratio} Normal [facility] Comment on above: Performed By: #### C MP ####[facility] Rqealpfuaj7204[address] [place], [place] [address]Dr. Arnoldo Taylor ALP [Catalytic activity/Vol] 133 U/L Critically high 46-116 [facility] Comment on above: Performed By: #### C MP ####[facility] Omjrbtbodg9462 [place] [phone]. Arnoldo Taylor ALT [Catalytic activity/Vol] 21 U/L Normal 14-59 [facility] Comment on above: Performed By: #### C MP ####[facility] Ncftgpdcto18[address] [place] [id number]. Arnoldo Taylor Anion gap [Moles/Vol] 12.9 mmol/L Normal [facility] Comment on above: Performed By: #### C MP ####[facility] Okxujltzjz4624 [place] [phone]. Arnoldo Taylor AST [Catalytic activity/Vol] 22 U/L Normal 15-37 [facility] Comment on above: Performed By: #### C MP ####[facility] Fxclqnqhja3[address] [place] [address]Dr. Arnoldo Taylor Bilirubin [Mass/Vol] 0.5 mg/dL Normal 0.2-1.0 [facility] Comment on above: Performed By: #### C MP ####[facility] Aboqjsuttc1035 [place] [phone]. Arnoldo Taylor Calcium [Mass/Vol] 8.7 mg/dL Normal 8.5-10.1 The [facility] Comment on above: Performed By: #### C MP ####[facility] Schgwbhxdu1167 [place] [phone]. Arnoldo Taylor Chloride [Moles/Vol] 105 mmol/L Normal 98-107 [facility] Comment on above: Performed By: #### C MP ####[facility] Gsfqmmmouo0065 [place] [id number]. Arnoldo Taylor CO2 [Moles/Vol] 26.5 mmol/L Normal 21.0-32.0 The [facility] Comment on above: Performed By: #### C MP ####[facility] Xavwsrjpsc0452 [place] [phone]. Arnoldo Taylor Creatinine [Mass/Vol] 1.06 mg/dL Critically high 0.55-1.02 [facility] Comment on above: Performed By: #### C MP ####[facility] Iybkrzduek4121 [place] [id number]. Arnoldo Taylor EGFR-AF TRISTANIAN >60 Normal >=60 [facility] Comment on above: Performed By: #### C MP ####[facility] Hpjewczfrw44[address] [place] [address]Dr. Arnoldo Taylor EGFR-NON AF TRISTANIAN 50 mL/min/1.73m2 Critically low >=60 [facility] Comment on above: Performed By: #### C MP ####[facility] Xpodgllzvx7730 [place] [address]Dr. Arnoldo Taylor Globulin (S) [Mass/Vol] 3.7 g/dL Normal [facility] Comment on above: Performed By: #### C MP ####[facility] Jrpvgectqb785[address] [place], [place] [address]Dr. Arnoldo Taylor Glucose [Mass/Vol] 110 mg/dL Critically high 74-[address] [facility] Comment on above: Performed By: #### C MP ####[facility] Wukakzdowf32[address] [place], [place] [address]Dr. Arnoldo Taylor Potassium [Moles/Vol] 3.4 mmol/L Critically low 3.5-5.1 [facility] Comment on above: Performed By: #### C MP ####[facility] Zfhzzrtcad54[address] [place], [place] [address]Dr. Arnoldo Taylor Protein [Mass/Vol] 6.5 g/dL Normal 6.4-8.2 [facility] Comment on above: Performed By: #### C MP ####[facility] Cbqsvscxrs16[address] [place], [place] [address]Dr. Arnoldo Taylor Sodium [Moles/Vol] 141 mmol/L Normal 136-145 [facility] Comment on above: Performed By: #### C MP ####[facility] Zbmtzfuomi085[address] [place], [place] [address]Dr. Arnoldo Taylor Urea nitrogen [Mass/Vol] 22.0 mg/dL Critically high 7.0-18.0 [facility] Comment on above: Performed By: #### C MP ####[facility] Pgjwiduldy0557 [place] [address]Dr. Arnoldo Taylor Urea nitrogen/Creatinine [Mass ratio] 20.8 mg/mg Normal [facility] Comment on above: Performed By: #### C MP ####[facility] Sjphxmbzsb5423[address] [place], [place] [address]Dr. Arnoldo Taylor URINE MICROSCOPIC ONLYon BACTERIA TRACE Abnormal NONE SEEN The [facility] Comment on above: Performed By: #### CHARLY WRIGHTRO ####[facility] Ekhqcbzhdd480[address] [place], [place] [address]Dr. Arnoldo Taylor Bacteria identified Cx Nom (U) INDICATED Normal [facility] Comment on above: Performed By: #### JESSICA WRIGHT ####[facility] Mbomlspnhq1746[address] [place], [place] [address]Dr. Arnoldo Taylor CAST NONE SEEN Normal NONE SEEN The [facility] Comment on above: Performed By: #### JESSICA WRIGHT ####[facility] Iitkqbezed0156[address] [place], [place] [address]Dr. Arnoldo Taylor Crystals LM Nom (Urine sed) NONE SEEN Normal NONE SEEN The [facility] Comment on above: Performed By: #### JESSICA WRIGHT ####[facility] Ohgdtidysn6067[address] [place], [place] [address]Dr. Arnoldo Taylor Epithelial cells LM Ql (Urine sed) RARE Normal NONE SEEN /RARE The [facility] Comment on above: Performed By: #### JESSICA WRIGHT ####[facility] Wgfrokqylt7984[address] [place], [place] [address]Dr. Arnoldo Taylor MUCOUS NONE SEEN Normal NONE SEEN The [facility] Comment on above: Performed By: #### CHARLY WRIGHTRO ####[facility] Yagnktttvy0630[address] [place], [place] [address]Dr. Arnoldo Taylor RBC 0-2 Normal 0-2 [facility] Comment on above: Performed By: #### CHARLY WRIGHTRO ####[facility] Sxkfmczvps9525[address] [place], [place] [address]Dr. Arnoldo Taylor WBC 5-10 Abnormal NONE SEEN The [facility] Comment on above: Performed By: #### E JESSICA READ ####[facility] Lfsbumkfjw3752 [place] [phone]. Arnoldo Taylor XR CHEST 1 Von 01-10-2022 XR CHEST 1 V Normal [facility] CBC AUTO DIFFon 01-09-2022 BASO # 0.0 103/ul Normal 0.0-0.1 [facility] Comment on above: Performed By: #### C BC ####[facility] Sbqxzynnmp3064 [place] [address]Dr. Lynettesujata Taylor Basophils/100 WBC (Bld) 0.1 % Critically low 0.2-2.0 [facility] Comment on above: Performed By: #### C BC ####[facility] Dqveucxsgf3799[address] [place], [place] [address]Dr. Arnoldo Brandon EO # 0.1 103/ul Normal 0.0-0.7 [facility] Comment on above: Performed By: #### C BC ####[facility] Csghenfqyj3574[address] [place], [place] [address]Dr. Lynettesujata Taylor Eosinophils/100 WBC (Bld) 1.2 % Normal 0.9-7.0 [facility] Comment on above: Performed By: #### C BC ####[facility] Fifwynebhu6998 [place] [address]Dr. Arnoldo Taylor Erythrocyte distribution width (RBC) [Ratio] 13.2 % Normal 11.0-15.0 [facility] Comment on above: Performed By: #### C BC ####[facility] Koxjfiuymv1620 [place] [address]Dr. Arnoldo Taylor Hematocrit (Bld) [Volume fraction] 38.0 % Normal 36.0-48.0 [facility] Comment on above: Performed By: #### C BC ####[facility] Clssvllsvd7689[address] [place], [place] [address]Dr. Arnoldo Taylor Hemoglobin (Bld) [Mass/Vol] 12.4 g/dL Normal 12.0-16.0 [facility] Comment on above: Performed By: #### C BC ####[facility] Qwpjbnfbbg2553 [place] [phone]. Arnoldo Taylor IG # 0.03 10e3/ul Normal 0.00-0.03 [facility] Comment on above: Performed By: #### C BC ####[facility] Swdjkmccra2154 [place] [address]Dr. Arnoldo Taylor IG % 0.4 % Normal 0.0-0.5 [facility] Comment on above: Performed By: #### C BC ####[facility] Kvosvpvlnr5867 [place] [address]Dr. Arnoldo Brandon LYMPH # 2.1 103/ul Normal 1.2-3.8 [facility] Comment on above: Performed By: #### C BC ####[facility] Jnyoyfmfmc5210 [place] [address]Dr. Arnoldo Taylor Lymphocytes/100 WBC (Bld) 25.8 % Normal 20.5-60.0 [facility] Comment on above: Performed By: #### C BC ####[facility] Bbwbzioibq25[address] [place] [address]Dr. Lynettesujata Taylor MANUAL DIFF REQ NO Normal [facility] Comment on above: Performed By: #### C BC ####[facility] Thkrhnzbdc[address] [place] [address]Dr. Arnoldo Taylor MCH (RBC) [Entitic mass] 30.8 pg Normal 26.7-34.0 [facility] Comment on above: Performed By: #### C BC ####[facility] Tspjfofacp3188 [place] [address]Dr. Arnoldo Taylor MCHC (RBC) [Mass/Vol] 32.6 g/dL Normal 29.9-35.2 [facility] Comment on above: Performed By: #### C BC ####[facility] Qlpibntgug9457 [place] [address]Dr. Arnoldo Taylor MCV (RBC) [Entitic vol] 94.5 fL Normal 81.0-99.0 [facility] Comment on above: Performed By: #### C BC ####[facility] [address]wzsrerh[address] [place] [id number]. Arnoldo Taylor MONO # 0.8 103/ul Normal 0.3-0.8 [facility] Comment on above: Performed By: #### C BC ####[facility] Vunndrjown4368 [place] [address]Dr. Arnoldo Taylor Monocytes/100 WBC (Bld) 10.0 % Normal 1.7-12.0 [facility] Comment on above: Performed By: #### C BC ####[facility] Ymtzekrzeh78[address] [place], [place] [address]Dr. Arnoldo Taylor NEUT # 5.0 103/ul Normal 1.4-6.5 [facility] Comment on above: Performed By: #### C BC ####[facility] Cseljmzhnm9865[address] [place], [place] [address]Dr. Arnoldo Taylor Neutrophils/100 WBC (Bld) 62.5 % Normal 43.0-75.0 [facility] Comment on above: Performed By: #### C BC ####[facility] Cpkbjfozas9246[address] [place], [place] [address]Dr. Arnoldo Taylor Platelet mean volume (Bld) [Entitic vol] 9.9 fL Normal 9.5-13.5 [facility] Comment on above: Performed By: #### C BC ####[facility] Tjpglihija5972 [place] [address]Dr. Arnoldo Taylor PLT 149 103/ul Critically low 150-450 The [facility] Comment on above: Performed By: #### C BC ####[facility] Noqtyqzlrv3979 [place] [phone]. Arnoldo Taylor RBC 4.02 106/ul Critically low 4.20-5.40 [facility] Comment on above: Performed By: #### C BC ####[facility] Xzxehvjjek[address] [place], [place] [address]Dr. Arnoldo Taylor WBC 8.1 103/ul Normal 4.0-11.0 [facility] Comment on above: Performed By: #### C BC ####[facility] Ignpprkydw23[address] [place], [place] [address]Dr. Arnoldo Taylor CULTURE BLOODon 01-09-2022 Microscopic examination of blood, culture Culture Observations: NO GROWTH AT 5 DAYS. Normal The [facility] Comment on above: Performed By: #### B LDCX1 ####[facility] Plfrjcknfk15[address] [place] [address]Dr. Arnoldo Taylor Covid-19 PCR (CVDTB)on 12-31 SARS-CoV-2 (COVID-19) RNA JAMMIE+probe Ql (Unsp spec) Not detected Normal NOT DETECTED The [facility] Comment on above: Result Comment: When diagnostic [...] for this test is supported by the [employer]'s declaration that [...] be used). Performed By: #### C VDTBH ####[facility] Rmqwehpedb4946 [place] [address]Dr. Arnoldo Taylor LACTATE/LACTIC ACIDon 2021 Lactate [Moles/Vol] 2.1 mmol/L Critically high 0.4-1.9 [facility] Comment on above: Performed By: #### L ACT ####[facility] Hzudqqnohu4733[address] [place], [place] [address]DrTye Arnoldo Taylor PROF 14(COMP METB)on 022 Albumin [Mass/Vol] 3.1 g/dL Critically low 3.4-5.0 Th [facility] Comment on above: Performed By: #### C MP ####[facility] Dhaxbjvcrb9751 [place] [address]Dr. Arnoldo Brandon Albumin/Globulin [Mass ratio] 0.8 {ratio} Normal [facility] Comment on above: Performed By: #### C MP ####[facility] Vhkusxkfuu4669[address] [place], [place] [address]Dr. Arnoldo Brandon ALP [Catalytic activity/Vol] 146 U/L Critically high 46-116 [facility] Comment on above: Performed By: #### C MP ####[facility] Ucdoafhvcl0420[address] [place], [place] [address]Dr. Arnoldo Brandon ALT [Catalytic activity/Vol] 20 U/L Normal 14-59 [facility] Comment on above: Performed By: #### C MP ####[facility] Svhjhyoxje4159[address] [place], [place] [address]Dr. Arnoldo Taylor Anion gap [Moles/Vol] 13.7 mmol/L Normal [facility] Comment on above: Performed By: #### C MP ####[facility] Pnjfqplegy8790[address] [place], [place] [address]Dr. Arnoldo Brandon AST [Catalytic activity/Vol] 22 U/L Normal 15-37 [facility] Comment on above: Performed By: #### C MP ####[facility] Xihwskogru9450[address] [place], [place] [address]Dr. Arnoldo Taylor Bilirubin [Mass/Vol] 0.4 mg/dL Normal 0.2-1.0 [facility] Comment on above: Performed By: #### C MP ####[facility] Gyfiyogszy799[address] [place], [place] [address]Dr. Arnoldo Taylor Calcium [Mass/Vol] 9.2 mg/dL Normal 8.5-10.1 [facility] Comment on above: Performed By: #### C MP ####[facility] Hfggggjrwk0232[address] [place], [place] [address]Dr. Arnoldo Taylor Chloride [Moles/Vol] 103 mmol/L Normal 98-107 [facility] Comment on above: Performed By: #### C MP ####[facility] Frabditflw4868[address] [place], [place] [address]Dr. Arnoldo Taylor CO2 [Moles/Vol] 28.1 mmol/L Normal 21.0-32.0 [facility] Comment on above: Performed By: #### C MP ####[facility] Pszezbnmxg4295 [place] [address]Dr. Arnoldo Brandon Creatinine [Mass/Vol] 1.19 mg/dL Critically high 0.55-1.02 [facility] Comment on above: Performed By: #### C MP ####[facility] Airfgyyldv4022[address] [place], [place] [address]Dr. Arnoldo Brandon EGFR-AF TRISTANIAN 53 mL/min/1.73m2 Critically low >=60 [facility] Comment on above: Performed By: #### C MP ####[facility] Khajvjtonu4347[address] [place], [place] [address]Dr. Arnoldo Taylor EGFR-NON AF TRISTANIAN 44 mL/min/1.73m2 Critically low >=60 [facility] Comment on above: Performed By: #### C MP ####[facility] Ngxwohalmd6056[address] [place], [place] [address]Dr. Arnoldo Taylor Globulin (S) [Mass/Vol] 3.9 g/dL Normal [facility] Comment on above: Performed By: #### C MP ####[facility] Fgyxvwlnab5477[address] [place], [place] [address]Dr. Arnoldo Taylor Glucose [Mass/Vol] 119 mg/dL Critically high 74-106 [facility] Comment on above: Performed By: #### C MP ####[facility] Fpbhoemnvz636[address] [place], [place] [address]Dr. Arnoldo Taylor Potassium [Moles/Vol] 3.8 mmol/L Normal 3.5-5.1 [facility] Comment on above: Performed By: #### C MP ####[facility] Rlitfkucvq705[address] [place], [place] [address]Dr. Arnoldo Tayolr Protein [Mass/Vol] 7.0 g/dL Normal 6.4-8.2 [facility] Comment on above: Performed By: #### C MP ####[facility] Wtzngzrbcz0198[address] [place], [place] [address]Dr. Arnoldo Taylor Sodium [Moles/Vol] 141 mmol/L Normal 136-145 [facility] Comment on above: Performed By: #### C MP ####[facility] Tobpmmedoz2557[address] [place], [place] [address]Dr. Arnoldo Taylor Urea nitrogen [Mass/Vol] 25.0 mg/dL Critically high 7.0-18.0 [facility] Comment on above: Performed By: #### C MP ####[facility] Kpwdyighmh6108[address] [place], [place] [address]Dr. Arnoldo Taylor Urea nitrogen/Creatinine [Mass ratio] 21.0 mg/mg Normal [facility] Comment on above: Performed By: #### C MP ####[facility] Aucyfypgwy2743[address] [place], [place] [address]Dr. Arnoldo Taylor CBC AUTO DIFFon 01-08-2022 BASO # 0.0 103/ul Normal 0.0-0.1 [facility] Comment on above: Performed By: #### C BC ####[facility] Zmktyysjak1469[address] [place], [place] [address]Dr. Arnoldo Brandon Basophils/100 WBC (Bld) 0.1 % Critically low 0.2-2.0 [facility] Comment on above: Performed By: #### C BC ####[facility] Dpfhudbogl5897[address] [place], [place] [address]Dr. Arnoldo Taylor EO # 0.3 103/ul Normal 0.0-0.7 [facility] Comment on above: Performed By: #### C BC ####[facility] Vtbbmkolez5355[address] [place], [place] [address]Dr. Arnoldo Brandon Eosinophils/100 WBC (Bld) 3.8 % Normal 0.9-7.0 [facility] Comment on above: Performed By: #### C BC ####[facility] Faielfylcp168[address] [place], [place] [address]Dr. Arnoldo Taylor Erythrocyte distribution width (RBC) [Ratio] 13.5 % Normal 11.0-15.0 [facility] Comment on above: Performed By: #### C BC ####[facility] Svcnplwvrd0982 [place] [address]Dr. Arnoldo Taylor Hematocrit (Bld) [Volume fraction] 37.5 % Normal 36.0-48.0 [facility] Comment on above: Performed By: #### C BC ####[facility] Lvhmlpcrww8654 [place] [address]Dr. Arnoldo Taylor Hemoglobin (Bld) [Mass/Vol] 11.7 g/dL Critically low 12.0-16.0 [facility] Comment on above: Performed By: #### C BC ####[facility] Jpmsqybsgy9615 [place] [address]Dr. Arnoldo Taylor IG # 0.01 10e3/ul Normal 0.00-0.03 [facility] Comment on above: Performed By: #### C BC ####[facility] Asmplualpx6838 [place] [address]Dr. Arnoldo Taylor IG % 0.1 % Normal 0.0-0.5 [facility] Comment on above: Performed By: #### C BC ####[facility] Sllgfqwbia1800 [place] [address]Dr. Arnoldo Brandon LYMPH # 4.1 103/ul Critically high 1.2-3.8 [facility] Comment on above: Performed By: #### C BC ####[facility] Mubxajkvdz1673 [place] [address]Dr. Lynettesujata Taylor Lymphocytes/100 WBC (Bld) 57.4 % Normal 20.5-60.0 [facility] Comment on above: Performed By: #### C BC ####[facility] Epvtaphbsx7173 [place] [address]DrTye Lynettesujata Taylor MANUAL DIFF REQ NO Normal [facility] Comment on above: Performed By: #### C BC ####[facility] Unawsmrqze2807 [place] [address]DrTye Lynettesujata Taylor MCH (RBC) [Entitic mass] 30.5 pg Normal 26.7-34.0 [facility] Comment on above: Performed By: #### C BC ####[facility] Eyfzpueebs1224[address] [place], [place] [address]Dr. Arnoldo Taylor MCHC (RBC) [Mass/Vol] 31.2 g/dL Normal 29.9-35.2 [facility] Comment on above: Performed By: #### C BC ####[facility] Njpdwdjhka4984 [place] [phone]. Arnoldo Taylor MCV (RBC) [Entitic vol] 97.9 fL Normal 81.0-99.0 [facility] Comment on above: Performed By: #### C BC ####[facility] Bigmegokbl9687 [place] [address]Dr. Arnoldo Brandon MONO # 0.8 103/ul Normal 0.3-0.8 [facility] Comment on above: Performed By: #### C BC ####[facility] Mvdsnanpvg3004 [place] [address]Dr. Lynettesujata Taylor Monocytes/100 WBC (Bld) 11.0 % Normal 1.7-12.0 [facility] Comment on above: Performed By: #### C BC ####[facility] Lmnvsfxyud7966 [place] [address]Dr. Arnoldo Brandon NEUT # 2.0 103/ul Normal 1.4-6.5 [facility] Comment on above: Performed By: #### C BC ####[facility] Ugbkayjrmr7485 [place] [address]Dr. Arnoldo Brandon Neutrophils/100 WBC (Bld) 27.6 % Critically low 43.0-75.0 [facility] Comment on above: Performed By: #### C BC ####[facility] Acenjzjmth0611 [place] [address]Dr. Arnoldo Brandon Platelet mean volume (Bld) [Entitic vol] 9.9 fL Normal 9.5-13.5 [facility] Comment on above: Performed By: #### C BC ####[facility] Rjkwwnltzh4724 [place] [id number]. Arnoldo Brandon PLT 142 103/ul Critically low 150-450 The [facility] Comment on above: Performed By: #### C BC ####[facility] Cjmdrhokml2425 [place] [address]Dr. Lynettesujata Brandon RBC 3.83 106/ul Critically low 4.20-5.40 [facility] Comment on above: Performed By: #### C BC ####[facility] Dlxovlfnuz4397 [place] [address]Dr. Arnoldo Taylor WBC 7.2 103/ul Normal 4.0-11.0 [facility] Comment on above: Performed By: #### C BC ####[facility] Oiktipqaoo4814 [place] [address]Dr. Arnoldo Taylor PROF 14(COMP METB)on 022 Albumin [Mass/Vol] 2.5 g/dL Critically low 3.4-5.0 [facility] Comment on above: Performed By: #### C MP ####[facility] Nrturzhajs12[address] [place], [place] [address]Dr. Arnoldo Taylor Albumin/Globulin [Mass ratio] 0.7 {ratio} Normal [facility] Comment on above: Performed By: #### C MP ####[facility] Wmcpmgxmwl3249 [place] [address]Dr. Arnoldo Taylor ALP [Catalytic activity/Vol] 147 U/L Critically high 46-116 [facility] Comment on above: Performed By: #### C MP ####[facility] Vufgsqltfi7948[address] [place], [place] [address]Dr. Arnoldo Taylor ALT [Catalytic activity/Vol] 18 U/L Normal 14-59 [facility] Comment on above: Performed By: #### C MP ####[facility] Hzmkhfmcyl1967 [place] [address]Dr. Arnoldo Taylor Anion gap [Moles/Vol] 7.7 mmol/L Normal [facility] Comment on above: Performed By: #### C MP ####[facility] Wfroctktlu495[address] [place], [place] [address]Dr. Arnoldo Taylor AST [Catalytic activity/Vol] 17 U/L Normal 15-37 [facility] Comment on above: Performed By: #### C MP ####[facility] Jyzcyjbylb220[address] [place], [place] [address]Dr. Arnoldo Brandon Bilirubin [Mass/Vol] 0.3 mg/dL Normal 0.2-1.0 [facility] Comment on above: Performed By: #### C MP ####[facility] Fuegpdobvo7149 [place] [address]Dr. Arnoldo Taylor Calcium [Mass/Vol] 8.6 mg/dL Normal 8.5-10.1 [facility] Comment on above: Performed By: #### C MP ####[facility] Awgpdmjtwx3085[address] [place], [place] [address]Dr. Lynettesujata Brandon Chloride [Moles/Vol] 109 mmol/L Critically high 98-107 [facility] Comment on above: Performed By: #### C MP ####[facility] Ppnbljusdq9823[address] [place], [place] [address]Dr. Lynettesujata Brandon CO2 [Moles/Vol] 29.1 mmol/L Normal 21.0-32.0 [facility] Comment on above: Performed By: #### C MP ####[facility] Mqktpwnqag332[address] [place], [place] [address]Dr. Arnoldo Brandon Creatinine [Mass/Vol] 1.03 mg/dL Critically high 0.55-1.02 [facility] Comment on above: Performed By: #### C MP ####[facility] Zurdgnwarc4767[address] [place], [place] [address]Dr. Lynettesujata Brandon EGFR-AF TRISTANIAN >60 Normal >=60 [facility] Comment on above: Performed By: #### C MP ####[facility] Pbgxsecwep4799[address] [place], [place] [address]Dr. Arnoldo Taylor EGFR-NON AF TRISTANIAN 52 mL/min/1.73m2 Critically low >=60 [facility] Comment on above: Performed By: #### C MP ####[facility] Yfkdusymqs6920[address] [place], [place] [address]Dr. Arnoldo Taylor Globulin (S) [Mass/Vol] 3.5 g/dL Normal [facility] Comment on above: Performed By: #### C MP ####[facility] Lfrzhrggoi8658[address] [place], [place] [address]Dr. Arnoldo Taylor Glucose [Mass/Vol] 94 mg/dL Normal 74-106 [facility] Comment on above: Performed By: #### C MP ####[facility] Dotrjwzuou5128 [place] [address]Dr. Arnoldo Taylor Potassium [Moles/Vol] 3.8 mmol/L Normal 3.5-5.1 [facility] Comment on above: Performed By: #### C MP ####[facility] Ntktluhrgy0865[address] [place], [place] [address]Dr. Arnoldo Taylor Protein [Mass/Vol] 6.0 g/dL Critically low 6.4-8.2 Th e [facility] Comment on above: Performed By: #### C MP ####[facility] Nmrhyozzdo27[address] [place], [place] [address]Dr. Arnoldo Taylor Sodium [Moles/Vol] 142 mmol/L Normal 136-145 [facility] Comment on above: Performed By: #### C MP ####[facility] Ygqzsuvlqs2722[address] [place], [place] [address]Dr. Arnoldo Taylor Urea nitrogen [Mass/Vol] 21.0 mg/dL Critically high 7.0-18.0 [facility] Comment on above: Performed By: #### C MP ####[facility] Ypshosgvjx719[address] [place], [place] [address]Dr. Arnoldo Taylor Urea nitrogen/Creatinine [Mass ratio] 20.4 mg/mg Normal [facility] Comment on above: Performed By: #### C MP ####[facility] Phbrgsgbjo7024[address] [place], [place] [address]Dr. Arnoldo Taylor CBC AUTO DIFFon 01-07-2022 BASO # 0.0 103/ul Normal 0.0-0.1 [facility] Comment on above: Performed By: #### C BC ####[facility] Qhsenwlfpi[address] [place], [place] [address]Dr. Arnoldo Taylor Basophils/100 WBC (Bld) 0.3 % Normal 0.2-2.0 [facility] Comment on above: Performed By: #### C BC ####[facility] Bjcohwxhlg4738 [place] [address]Dr. Arnoldo Taylor EO # 0.3 103/ul Normal 0.0-0.7 [facility] Comment on above: Performed By: #### C BC ####[facility] Ayvkhemghz9975 [place] [address]Dr. Arnoldo Taylor Eosinophils/100 WBC (Bld) 3.5 % Normal 0.9-7.0 [facility] Comment on above: Performed By: #### C BC ####[facility] Bllwyofret27[address] [place], [place] [address]Dr. Arnoldo Taylor Erythrocyte distribution width (RBC) [Ratio] 13.8 % Normal 11.0-15.0 [facility] Comment on above: Performed By: #### C BC ####[facility] Tasvvebwss[address] [place], [place] [address]Dr. Arnoldo Taylor Hematocrit (Bld) [Volume fraction] 38.0 % Normal 36.0-48.0 [facility] Comment on above: Performed By: #### C BC ####[facility] Nburyteiyp[address] [place], [place] [address]Dr. Arnoldo Taylor Hemoglobin (Bld) [Mass/Vol] 11.7 g/dL Critically low 12.0-16.0 [facility] Comment on above: Performed By: #### C BC ####[facility] Kmbvvnbfhq5[address] [place], [place] [address]Dr. Arnoldo Taylor IG # 0.02 10e3/ul Normal 0.00-0.03 [facility] Comment on above: Performed By: #### C BC ####[facility] Oavnqeygyb9[address] [place], [place] [address]Dr. Arnoldo Taylor IG % 0.3 % Normal 0.0-0.5 [facility] Comment on above: Performed By: #### C BC ####[facility] Gukoqypjah1434[address] [place], [place] [address]Dr. Arnoldo Taylor LYMPH # 4.1 103/ul Critically high 1.2-3.8 [facility] Comment on above: Performed By: #### C BC ####[facility] Spydwisfmb7[address] [place] [id number]. Arnoldo Brandon Lymphocytes/100 WBC (Bld) 53.8 % Normal 20.5-60.0 [facility] Comment on above: Performed By: #### C BC ####[facility] Saqzimqqvk1350 [place] [id number]. Lynettesujata Taylor MANUAL DIFF REQ NO Normal [facility] Comment on above: Performed By: #### C BC ####[facility] Mqoxeeobym5630 [place] [address]Dr. Lynettesujata Taylor MCH (RBC) [Entitic mass] 30.3 pg Normal 26.7-34.0 [facility] Comment on above: Performed By: #### C BC ####[facility] Gbiwoquhen26[address] [place] [address]Dr. Lynettesujata Taylor MCHC (RBC) [Mass/Vol] 30.8 g/dL Normal 29.9-35.2 [facility] Comment on above: Performed By: #### C BC ####[facility] Ptojbjktzb6407 [place] [address]Dr. Lynettesujata Taylor MCV (RBC) [Entitic vol] 98.4 fL Normal 81.0-99.0 [facility] Comment on above: Performed By: #### C BC ####[facility] Rfiawpifol1102 [place] [address]Dr. Arnoldo Taylor MONO # 0.9 103/ul Critically high 0.3-0.8 [facility] Comment on above: Performed By: #### C BC ####[facility] Opnuyyjhnn2281 [place] [address]Dr. Arnoldo Taylor Monocytes/100 WBC (Bld) 11.6 % Normal 1.7-12.0 [facility] Comment on above: Performed By: #### C BC ####[facility] Ljtgooschu0834 [place] [address]Dr. Arnoldo Taylor NEUT # 2.3 103/ul Normal 1.4-6.5 [facility] Comment on above: Performed By: #### C BC ####[facility] Dfaeivmndn8789 [place] [id number]. Arnoldo Taylor Neutrophils/100 WBC (Bld) 30.5 % Critically low 43.0-75.0 [facility] Comment on above: Performed By: #### C BC ####[facility] Yxqftoxkzt4454 [place] [phone]. Arnoldo Taylor Platelet mean volume (Bld) [Entitic vol] 9.6 fL Normal 9.5-13.5 [facility] Comment on above: Performed By: #### C BC ####[facility] Nchqbvnxxg2381 [place] [phone]. Lynettesujata Brandon PLT 157 103/ul Normal 150-450 [facility] Comment on above: Performed By: #### C BC ####[facility] Etxjotaoop1278 [place] [phone]. Lynettesujata Brandon RBC 3.86 106/ul Critically low 4.20-5.40 [facility] Comment on above: Performed By: #### C BC ####[facility] Sghulyfcrj0682 [place] [phone]. Arnoldo Brandon WBC 7.7 103/ul Normal 4.0-11.0 [facility] Comment on above: Performed By: #### C BC ####[facility] Bpjcdqlfos3798 [place] [phone]. Arnoldo Taylor PROF 14(COMP METB)on 022 Albumin [Mass/Vol] 2.6 g/dL Critically low 3.4-5.0 [facility] Comment on above: Performed By: #### C MP ####[facility] Jluwvusgro6493 [place] [phone]. Arnoldo Taylor Albumin/Globulin [Mass ratio] 0.7 {ratio} Normal [facility] Comment on above: Performed By: #### C MP ####[facility] Qwobhqtgom2257 [place] [phone]. Arnoldo Taylor ALP [Catalytic activity/Vol] 157 U/L Critically high 46-116 [facility] Comment on above: Performed By: #### C MP ####[facility] Ofgvrovuvs9316 [place] [phone]. Arnoldo Taylor ALT [Catalytic activity/Vol] 13 U/L Critically low 14-59 [facility] Comment on above: Performed By: #### C MP ####[facility] Mzhuasqwbh4419 [place] [address]Dr. Arnoldo Taylor Anion gap [Moles/Vol] 10.9 mmol/L Normal [facility] Comment on above: Performed By: #### C MP ####[facility] Aerpolxqmd6198 [place] [address]Dr. Arnoldo Taylor AST [Catalytic activity/Vol] 19 U/L Normal 15-37 [facility] Comment on above: Performed By: #### C MP ####[facility] Dpsikgfnxi3096 [place] [address]Dr. Arnoldo Taylor Bilirubin [Mass/Vol] 0.4 mg/dL Normal 0.2-1.0 [facility] Comment on above: Performed By: #### C MP ####[facility] Qyqsvfrjrn[address] [place], [place] [address]Dr. Arnoldo Taylor Calcium [Mass/Vol] 8.9 mg/dL Normal 8.5-10.1 [facility] Comment on above: Performed By: #### C MP ####[facility] Mfosbmaoiv4036[address] [place], [place] [address]Dr. Arnoldo Taylor Chloride [Moles/Vol] 107 mmol/L Normal 98-107 [facility] Comment on above: Performed By: #### C MP ####[facility] Olrgditraj9569 [place] [address]Dr. Arnoldo Taylor CO2 [Moles/Vol] 26.0 mmol/L Normal 21.0-32.0 [facility] Comment on above: Performed By: #### C MP ####[facility] Ktpqnwmios987[address] [place], [place] [address]Dr. Arnoldo Taylor Creatinine [Mass/Vol] 1.17 mg/dL Critically high 0.55-1.02 [facility] Comment on above: Performed By: #### C MP ####[facility] Fjsjfgvkfh3368 [place] [phone]. Arnoldo Taylor EGFR-AF TRISTANIAN 54 mL/min/1.73m2 Critically low >=60 [facility] Comment on above: Performed By: #### C MP ####[facility] Ezwinawwsr1504 [place] [address]Dr. Arnoldo Taylor EGFR-NON AF TRISTANIAN 45 mL/min/1.73m2 Critically low >=60 [facility] Comment on above: Performed By: #### C MP ####[facility] Epkzvywxiz3465 [place] [phone]. Arnoldo Taylor Globulin (S) [Mass/Vol] 3.7 g/dL Normal [facility] Comment on above: Performed By: #### C MP ####[facility] Nlnhvpvyyv7749 [place] [address]Dr. Arnoldo Taylor Glucose [Mass/Vol] 94 mg/dL Normal 74-106 [facility] Comment on above: Performed By: #### C MP ####[facility] Xoguvhozdh1146 [place] [address]Dr. Arnoldo Taylor Potassium [Moles/Vol] 3.9 mmol/L Normal 3.5-5.1 [facility] Comment on above: Performed By: #### C MP ####[facility] Gkpaklocbu5957 [place] [address]Dr. Arnoldo Taylor Protein [Mass/Vol] 6.3 g/dL Critically low 6.4-8.2 [facility] Comment on above: Performed By: #### C MP ####[facility] Zmdkjznssj5283 [place] [phone]. Arnoldo Taylor Sodium [Moles/Vol] 140 mmol/L Normal 136-145 [facility] Comment on above: Performed By: #### C MP ####[facility] Hjhfsedezc5317 [place] [address]Dr. Arnoldo Taylor Urea nitrogen [Mass/Vol] 28.0 mg/dL Critically high 7.0-18.0 [facility] Comment on above: Performed By: #### C MP ####[facility] Jwxibznbyl8769 [place] [address]Dr. Arnoldo Taylor Urea nitrogen/Creatinine [Mass ratio] 23.9 mg/mg Normal [facility] Comment on above: Performed By: #### C MP ####[facility] Zaqgaludqt4588[address] [place], [place] [address]Dr. Arnoldo Taylor BNPon 01-06-2022 Natriuretic peptide B (Bld) [Mass/Vol] 382.0 pg/mL Normal <=1,800.0 [facility] Comment on above: Performed By: #### B CIRCUIT COURT JUDGE, LIPA, CMP, HSTROPN ####[facility] Ncaobttkxt4467[address] [place], [place] [address]Dr. Lynettesujata Taylor CBC AUTO DIFFon 01-06-2022 BASO # 0.0 103/ul Normal 0.0-0.1 [facility] Comment on above: Performed By: #### C BC ####[facility] Kmwzflwbmd1901[address] [place], [place] [address]Dr. Arnoldo Taylor Basophils/100 WBC (Bld) 0.1 % Critically low 0.2-2.0 [facility] Comment on above: Performed By: #### C BC ####[facility] Qzxutkxbge0923[address] [place], [place] [address]Dr. Arnoldo Taylor EO # 0.1 103/ul Normal 0.0-0.7 [facility] Comment on above: Performed By: #### C BC ####[facility] Jcdmsfcrvq2420[address] [place], [place] [address]Dr. Arnoldo Taylor Eosinophils/100 WBC (Bld) 1.2 % Normal 0.9-7.0 [facility] Comment on above: Performed By: #### C BC ####[facility] Cthwmfodsz4988[address] [place], [place] [address]Dr. Arnoldo Taylor Erythrocyte distribution width (RBC) [Ratio] 13.3 % Normal 11.0-15.0 [facility] Comment on above: Performed By: #### C BC ####[facility] Oxkaotjvyu2084[address] [place], [place] [address]Dr. Arnoldo Taylor Hematocrit (Bld) [Volume fraction] 41.0 % Normal 36.0-48.0 [facility] Comment on above: Performed By: #### C BC ####[facility] Iffhtxcuhk7917 [place] [address]DrTye Taylor Hemoglobin (Bld) [Mass/Vol] 13.5 g/dL Normal 12.0-16.0 [facility] Comment on above: Performed By: #### C BC ####[facility] Rbssmgvtfk1565 [place] [address]DrTye Taylor IG # 0.02 10e3/ul Normal 0.00-0.03 [facility] Comment on above: Performed By: #### C BC ####[facility] Rphnukcpcu9060[address] [place], [place] [address]DrTye Taylor IG % 0.2 % Normal 0.0-0.5 [facility] Comment on above: Performed By: #### C BC ####[facility] Tghdyyxtzz152[address] [place], [place] [address]DrTye Taylor LYMPH # 4.4 103/ul Critically high 1.2-3.8 [facility] Comment on above: Performed By: #### C BC ####[facility] Lebidbqbxn9232[address] [place], [place] [address]DryTe Taylor Lymphocytes/100 WBC (Bld) 46.9 % Normal 20.5-60.0 [facility] Comment on above: Performed By: #### C BC ####[facility] Elwujvpvgm2977[address] [place], [place] [address]DrTye Taylor MANUAL DIFF REQ NO Normal [facility] Comment on above: Performed By: #### C BC ####[facility] Cumuxzfapu2939 [place] [phone] Taylor MCH (RBC) [Entitic mass] 30.8 pg Normal 26.7-34.0 [facility] Comment on above: Performed By: #### C BC ####[facility] Jyrzbzdygw8548 [place] [phone] Taylor MCHC (RBC) [Mass/Vol] 32.9 g/dL Normal 29.9-35.2 [facility] Comment on above: Performed By: #### C BC ####[facility] Ivysuybqan2271 [place] [address]DrTye Taylor MCV (RBC) [Entitic vol] 93.4 fL Normal 81.0-99.0 [facility] Comment on above: Performed By: #### C BC ####[facility] Czqnpznsmj1881 [place] [address]DrTye Taylor MONO # 0.9 103/ul Critically high 0.3-0.8 [facility] Comment on above: Performed By: #### C BC ####[facility] Jypmtfulkg3669 [place] [address]DrTye Taylor Monocytes/100 WBC (Bld) 9.6 % Normal 1.7-12.0 [facility] Comment on above: Performed By: #### C BC ####[facility] Gtegwhtqaq2019[address] [place], [place] [address]DrTye Taylor NEUT # 3.9 103/ul Normal 1.4-6.5 [facility] Comment on above: Performed By: #### C BC ####[facility] Brmapwhatb6908[address] [place], [place] [address]DrTye Taylor Neutrophils/100 WBC (Bld) 42.0 % Critically low 43.0-75.0 [facility] Comment on above: Performed By: #### C BC ####[facility] Mpzrdxkzkv5215[address] [place], [place] [address]DrTye Taylor Platelet mean volume (Bld) [Entitic vol] 10.2 fL Normal 9.5-13.5 [facility] Comment on above: Performed By: #### C BC ####[facility] Txqgfzzozg0055[address] [place], [place] [address]DrTye Taylor PLT 199 103/ul Normal 150-450 [facility] Comment on above: Performed By: #### C BC ####[facility] Hapqouigdv729[address] [place], [place] [address]DrTye Taylor RBC 4.39 106/ul Normal 4.20-5.40 [facility] Comment on above: Performed By: #### C BC ####[facility] Vdrpvoulde0683 [place] [phone]. Arnoldo Taylor WBC 9.3 103/ul Normal 4.0-11.0 [facility] Comment on above: Performed By: #### C BC ####[facility] Gkvcxbipwt3312 [place] [phone]. Arnoldo Taylor CT HEAD WO CONon 01-06-2022 CT HEAD WO CON Normal [facility] CULTURE BLOODon 01-06-2022 Microscopic examination of blood, culture Culture Observations: NO GROWTH AT 5 DAYS. Normal [facility] Comment on above: Performed By: #### B LDCX2 ####[facility] Waviuvurav6571 [place] [phone]. Arnoldo Taylor Microscopic examination of blood, culture Culture Observations: NO GROWTH AT 5 DAYS. Normal [facility] Comment on above: Performed By: #### B LDCX1 ####[facility] Pyzrhvcbry9494 [place] [phone]. Arnoldo Taylor CULTURE URINEon 01-06-2022 CULTURE URINE Culture Observations : NO GROWTH. Normal [facility] Comment on above: Performed By: #### U RCX ####[facility] Rxladftuou8158 [place] [phone]. Arnoldo Taylor [facility]-19 PCR ([facility])on SARS-CoV-2 (COVID-19) RNA JAMMIE+probe Ql (Unsp spec) Not detected Normal NOT DETECTED [facility] Comment on above: Result Comment: When diagnostic [...] for this test is supported by the [place] of Health and Human Service's declaration that [...] longer be used). Performed By: #### C [facility] ####[facility] Oewtolcgyu3255[address] [place], [place] [address]Dr. Lynettesujata Brandon ER URINE PROFILEon 2 Bilirubin Ql (U) Negative Normal NEGATIVE [facility] Comment on above: Performed By: #### E RUR ####[facility] Mokikdxwrg7240[address] [place], [place] [address]Dr. Lynettesujata Taylor Clarity (U) CLEAR Normal CLEAR [facility] Comment on above: Performed By: #### E RUR ####[facility] Xnnrnqishh1736[address] [place], [place] [address]Dr. Lynettelan Taylor Color (U) YELLOW Normal YELLOW [facility] Comment on above: Performed By: #### E RUR ####[facility] Aroqvpidrt4238[address] [place], [place] [address]Dr. Arnoldo Taylor ERUAHD A micrscopic examination will be performed if indicated. Normal [facility] Comment on above: Performed By: #### E RUR ####[facility] Hoobufxoob039[address] [place], [place] [address]Dr. Lynettelan Taylor Glucose Ql (U) Negative Normal NEGATIVE The [facility] Comment on above: Performed By: #### E RUR ####[facility] Rrjlkeudls0011[address] [place], [place] [address]Dr. Yilan Taylor Hemoglobin Ql (U) Negative Normal NEGATIVE [facility] Comment on above: Performed By: #### E RUR ####[facility] Wvidcuapzr8197[address] [place], [place] [address]Dr. Lynettelan Taylor Ketones Ql (U) Negative Normal NEGATIVE The [facility] Comment on above: Performed By: #### E RUR ####[facility] Ciseuffghq5052[address] [place], [place] [address]Dr. Lynettelan Taylor LEUKOCYTES Negative Normal NEGATIVE The [facility] Comment on above: Performed By: #### E RUR ####[facility] Ixetizpxob4667 [place] [address]Dr. Arnoldo Taylor Nitrite Ql (U) Negative Normal NEGATIVE The [facility] Comment on above: Performed By: #### E RUR ####[facility] Yahrojfwqr[address] [place], [place] [address]Dr. Arnoldo Taylor pH (U) 7.5 [pH] Normal 5-9 [facility] Comment on above: Performed By: #### E RUR ####[facility] Ylqbjdsphb632[address] [place], [place] [address]Dr. Arnoldo Brandon SPEC GRAVITY 1.010 Normal 1.005-<=1.025 [facility] Comment on above: Performed By: #### E RUR ####[facility] Qzuxokbngz8122[address] [place], [place] [address]Dr. Arnoldo Tayolr UA PROTEIN Negative Normal NEGATIVE/ TRACE [facility] Comment on above: Performed By: #### E RUR ####[facility] Uggwuejfoy3563[address] [place], [place] [address]Dr. Lynettesujata Taylor UR MICRO IND NOT INDICATED Normal [facility] Comment on above: Performed By: #### E RUR ####[facility] Nuwomgxeia1823[address] [place], [place] [address]Dr. Arnoldo Brandon Urobilinogen Qn (U) 0.2 {Adrienne'U}/dL Normal 0.2 - 1. 0 [facility] Comment on above: Performed By: #### E RUR ####[facility] Hgxoeyftjj5178[address] [place], [place] [address]Dr. Arnoldo Brandon LACTATE/LACTIC ACIDon 2021 Lactate [Moles/Vol] 1.6 mmol/L Normal 0.4-1.9 [facility] Comment on above: Performed By: #### L ACT ####[facility] Jeoqagmnam2127[address] [place], [place] [address]Dr. Arnoldo Brandon LIPASEon 01-06-2022 Lipase [Catalytic activity/Vol] 85.0 U/L Normal 73.0-393.0 [facility] Comment on above: Performed By: #### B CIRCUIT COURT JUDGE, LIPA, CMP, HSTROPN ####[facility] Opfucdkytk5976 [place] [address]Dr. Arnoldo Taylor PROF 14(COMP METB)on 022 Albumin [Mass/Vol] 3.2 g/dL Critically low 3.4-5.0 Th e [facility] Comment on above: Performed By: #### B [address] COURT JUDGE, LIPA, CMP, HSTROPN ####[facility] Bymoumlziq3811 [place] [address]Dr. Arnoldo Taylro Albumin/Globulin [Mass ratio] 0.7 {ratio} Normal [facility] Comment on above: Performed By: #### B [address] COURT JUDGE, LIPA, CMP, HSTROPN ####[facility] Ccoclsqair8581 [place] [address]Dr. Arnoldo Taylor ALP [Catalytic activity/Vol] 188 U/L Critically high 46-116 [facility] Comment on above: Performed By: #### B [address] COURT JUDGE, LIPA, CMP, HSTROPN ####[facility] Xzduraftge2025[address] [place], [place] [address]Dr. Arnoldo Taylor ALT [Catalytic activity/Vol] 16 U/L Normal 14-59 [facility] Comment on above: Performed By: #### B [address] COURT JUDGE, LIPA, CMP, HSTROPN ####[facility] Qavonwayyv3837 [place] [address]Dr. Arnoldo Taylor Anion gap [Moles/Vol] 13.5 mmol/L Normal [facility] Comment on above: Performed By: #### B [address] COURT JUDGE, LIPA, CMP, HSTROPN ####[facility] Nidcpaxuhj5664 [place] [address]Dr. Arnoldo Taylor AST [Catalytic activity/Vol] 20 U/L Normal 15-37 [facility] Comment on above: Performed By: #### B [address] COURT JUDGE, LIPA, CMP, HSTROPN ####[facility] Vgrdsgpvdo8438 [place] [address]Dr. Arnoldo Taylor Bilirubin [Mass/Vol] 0.7 mg/dL Normal 0.2-1.0 [facility] Comment on above: Performed By: #### B CIRCUIT COURT JUDGE, LIPA, CMP, HSTROPN ####[facility] Lgmszunjnk3379[address] [place], [place] [address]Dr. Arnoldo Taylor Calcium [Mass/Vol] 9.6 mg/dL Normal 8.5-10.1 The [facility] Comment on above: Performed By: #### B [address] COURT JUDGE, LIPA, CMP, HSTROPN ####[facility] Hzgsobzppa2667[address] [place], [place] [address]Dr. Arnoldo Taylor Chloride [Moles/Vol] 103 mmol/L Normal 98-107 [facility] Comment on above: Performed By: #### B [address] COURT JUDGE, LIPA, CMP, HSTROPN ####[facility] Stererwojf2743[address] [place], [place] [address]Dr. Arnoldo Taylor CO2 [Moles/Vol] 24.9 mmol/L Normal 21.0-32.0 [facility] Comment on above: Performed By: #### B [address] COURT JUDGE, LIPA, CMP, HSTROPN ####[facility] Isfdcongwd2983[address] [place], [place] [address]Dr. Arnoldo Taylor Creatinine [Mass/Vol] 1.20 mg/dL Critically high 0.55-1.02 [facility] Comment on above: Performed By: #### B [address] COURT JUDGE, LIPA, CMP, HSTROPN ####[facility] Gtrtucqcjm78[address] [place], [place] [address]Dr. Arnoldo Taylor EGFR-AF TRISTANIAN 53 mL/min/1.73m2 Critically low >=60 [facility] Comment on above: Performed By: #### B [address] COURT JUDGE, LIPA, CMP, HSTROPN ####[facility] Glpieavaki9[address] [place], [place] [address]Dr. Arnoldo Taylor EGFR-NON AF TRISTANIAN 43 mL/min/1.73m2 Critically low >=60 [facility] Comment on above: Performed By: #### B [address] COURT JUDGE, LIPA, CMP, HSTROPN ####[facility] Jtgbnruydi864[address] [place], [place] [address]Dr. Arnoldo Taylor Globulin (S) [Mass/Vol] 4.3 g/dL Normal [facility] Comment on above: Performed By: #### B [address] COURT JUDGE, LIPA, CMP, HSTROPN ####[facility] Bcunaxpxct0969 [place] [address]Dr. Arnoldo Taylor Glucose [Mass/Vol] 96 mg/dL Normal 74-106 The [facility] Comment on above: Performed By: #### B [address] COURT JUDGE, LIPA, CMP, HSTROPN ####[facility] Hbagwkrqxh9606 [place] [address]Dr. Arnoldo Taylor Potassium [Moles/Vol] 3.4 mmol/L Critically low 3.5-5.1 [facility] Comment on above: Performed By: #### B [address] COURT JUDGE, LIPA, CMP, HSTROPN ####[facility] Auigrcjrjc4794 [place] [address]Dr. Arnoldo Taylor Protein [Mass/Vol] 7.5 g/dL Normal 6.4-8.2 The [facility] Comment on above: Performed By: #### B [address] COURT JUDGE, LIPA, CMP, HSTROPN ####[facility] Lgpyeaisyo9302 [place] [address]Dr. Arnoldo Taylor Sodium [Moles/Vol] 138 mmol/L Normal 136-145 The [facility] Comment on above: Performed By: #### B [address] COURT JUDGE, LIPA, CMP, HSTROPN ####[facility] Vpicrnpkcc4958 [place] [address]Dr. Arnoldo Taylor Urea nitrogen [Mass/Vol] 35.0 mg/dL Critically high 7.0-18.0 [facility] Comment on above: Performed By: #### B [address] COURT JUDGE, LIPA, CMP, HSTROPN ####[facility] Lawmymbsgl1629 [place] [address]Dr. Arnoldo Taylor Urea nitrogen/Creatinine [Mass ratio] 29.2 mg/mg Normal [facility] Comment on above: Performed By: #### B CIRCUIT COURT JUDGE, LIPA, CMP, HSTROPN ####[facility] Hakytxgkfe6388 [place], [place] [address]Cg. Arnoldo Taylor TROPONIN, HIGH SENSITIVITYon 01-06-2022 HSTROP 8.4 pg/mL Normal 4.0-51.3 [facility] Comment on above: Result Comment: CUT- OFF POINTS HAVE BEEN ESTABLISHED BASED ON THE FOURTH UNIVERSAL DEFINITIONS OF MYOCARDIALINFARCTION. THE UPPER REFERENCE LIMIT (URL) OF TROPONIN, DEFINED THE 99TH PERCENTILE OFcTnI DISTRIBUTION IN A REFERENCE POPULATION, HAS BEEN CONFIRMED THE DECISION THRESHOLDFOR WA DIAGNOSIS. Performed By: #### B CIRCUIT COURT JUDGE, LIPA, CMP, HSTROPN ####[facility] Awbutupqyh9759 [place], [place] [address]Gj. Arnoldo Taylor XR ABD FLAT UP_PA Byron 01-06 XR ABD FLAT UP_PA CH Normal [facility] HIP LEFT 1 OR 2 VWS WITH PEL VISon 12-24-2021 HIP LEFT 1 OR 2 VWS WITH PELVIS [facility] Department of Radiology [address] [place] [id number] ======== Patient Name: MYRANDA YANES : [...] report. Electronically signed: Remy Montalvo. Transcribed by: [email or web address], User Resident: ROCHELLE GARNETT Electronically Signed by: REMY MONTALVO @ 12/24/2021 02:40 PM I personally read this/these film(s) with this resident Normal [facility] Comment on above: Order Comment: Crite brittaney for reflexing a culture was not met. Please call the lab at [phone] within 24 hours of collection time if culture is needed TIBIA FIBULA LEFTon 12-25-19 22 TIBIA FIBULA LEFT [facility] Department of Radiology [address] [place] [id number] ======== Patient Name: MYRANDA YANES : [...] report. Electronically signed: Tomasa Glass. Transcribed by: [email or web address], User Resident: ROCHELLE GARNETT Electronically Signed by: TOMASA GLASS @ 12/25/2021 03:33 PM I personally read this/these film(s) with this resident Normal [facility] Comment on above: Order Comment: Evalu ate BASIC METABOLIC PANELon 07-3 Calcium [Mass/Vol] 8.1 mg/dL Low 8.6-10.3 The [facility] Comment on above: Order Comment: Hemog lobin < 9 gm/dl with known cardiac or cerebrovascular disease Performed By: #### 8 6002 #### [facility] [address] [place] [address], [facility] Chloride [Moles/Vol] 101 mmol/L Normal 98-107 [facility] Comment on above: Order Comment: Hemog lobin < 9 gm/dl with known cardiac or cerebrovascular disease Performed By: #### 8 6002 #### [facility] [address] [place] [address], [facility] CO2 [Moles/Vol] 28 mmol/L Normal 21-31 [facility] Comment on above: Order Comment: Hemog lobin < 9 gm/dl with known cardiac or cerebrovascular disease Performed By: #### 8 6002 #### [facility] [address] [place] [address], [facility] Creatinine [Mass/Vol] 0.76 mg/dL Normal 0.60-1.20 [facility] Comment on above: Order Comment: Hemog lobin < 9 gm/dl with known cardiac or cerebrovascular disease Performed By: #### 8 6002 #### [facility] [address] [place] [address], [facility] GFR/1.73 sq M.predicted among non-blacks MDRD (S/P/Bld) [Vol rate/Area] mL/min/{1.73_m2} Normal >60 [facility] Comment on above: Order Comment: Hemog lobin < 9 gm/dl with known cardiac or cerebrovascular disease Result Comment: [facility]'s estimated glomerular filtration rate (eGFR) will [...] individuals. Performed By: #### 8 6002 #### [facility] [address] [place] [id number], [facility] Glucose [Mass/Vol] 83 mg/dL Normal 70-100 [facility] Comment on above: Order Comment: Hemog lobin < 9 gm/dl with known cardiac or cerebrovascular disease Performed By: #### 8 6002 #### [facility] [address] [place] [address], [place] Potassium [Moles/Vol] 4.1 mmol/L Normal 3.5-5.1 [facility] Comment on above: Order Comment: Hemog lobin < 9 gm/dl with known cardiac or cerebrovascular disease Performed By: #### 8 6002 #### [facility] [address] [place] [address], [place] Sodium [Moles/Vol] 136 mmol/L Normal 136-145 [facility] Comment on above: Order Comment: Hemog lobin < 9 gm/dl with known cardiac or cerebrovascular disease Performed By: #### 8 6002 #### [facility] [address] [place] [address], [place] Urea nitrogen [Mass/Vol] 21 mg/dL Normal 7-25 [facility] Comment on above: Order Comment: Hemog lobin < 9 gm/dl with known cardiac or cerebrovascular disease Performed By: #### 8 6002 #### [facility] [address] [place] [address], [facility] CBC COMPLETE BLOOD COUNTon 0 11-28-2021 Erythrocyte distribution width (RBC) [Ratio] 13.5 % Normal 11.5-15.0 [facility] Comment on above: Order Comment: No: D o not add to previous draw Performed By: #### 5 0608 #### [facility] [address] [place] [address], [facility] Hematocrit (Bld) [Volume fraction] 24.3 % Low 36.0-45.0 [facility] Comment on above: Order Comment: No: D o not add to previous draw Performed By: #### 5 0608 #### [facility] [address] [place] [address], [facility] Hemoglobin (Bld) [Mass/Vol] 7.7 g/dL Low 12.0-15.0 [facility] Comment on above: Order Comment: No: D o not add to previous draw Performed By: #### 5 0608 #### [facility] [address] MCH (RBC) [Entitic mass] 30.9 pg Normal 27.0-33.0 [facility] Comment on above: Order Comment: No: D o not add to previous draw Performed By: #### 5 0608 #### [facility] [address] MCHC (RBC) [Mass/Vol] 31.7 g/dL Low 32.0-35.0 [facility] Comment on above: Order Comment: No: D o not add to previous draw Performed By: #### 5 0608 #### [facility] [address] MCV (RBC) [Entitic vol] 97.6 fL Normal 82.0-98.0 [facility] Comment on above: Order Comment: No: D o not add to previous draw Performed By: #### 5 0608 #### [facility] [address] [facility]. [address] Nucleated RBC/100 WBC (Bld) [Ratio] 0 % Normal 0-0 [facility] Comment on above: Order Comment: No: D o not add to previous draw Performed By: #### 5 0608 #### [facility] [address] [facility] [place] [address], [facility] PLAT CNT 171 10*3/uL Normal 150-400 [facility] Comment on above: Order Comment: No: D o not add to previous draw Performed By: #### 5 0608 #### [facility] [address] [facility] [place] [address], [facility] RBC (Bld) [#/Vol] 2.49 10*6/uL Low 3.80-5.00 [facility] Comment on above: Order Comment: No: D o not add to previous draw Performed By: #### 5 0608 #### [facility] [address] [place] [address], [facility] WBC (Bld) [#/Vol] 6.96 10*3/uL Normal 4.00-10.60 [facility] Comment on above: Order Comment: No: D o not add to previous draw Performed By: #### 5 0608 #### [facility] [address] [place] [address], [facility] BASIC METABOLIC PANELon 07- Calcium [Mass/Vol] 8.2 mg/dL Low 8.6-10.3 [facility] Comment on above: Order Comment: No: D o not add to previous draw Performed By: #### 0 0071, [id number] ####[facility] [place] [address], [facility] Chloride [Moles/Vol] 101 mmol/L Normal 98-107 [facility] Comment on above: Order Comment: No: D o not add to previous draw Performed By: #### 0 0071, 70096 ####[facility] [place] [address], [facility] CO2 [Moles/Vol] 29 mmol/L Normal 21-31 The [facility] Comment on above: Order Comment: No: D o not add to previous draw Performed By: #### 0 0071, 85502 ####[facility] [place] [address], [facility] Creatinine [Mass/Vol] 0.79 mg/dL Normal 0.60-1.20 [facility] Comment on above: Order Comment: No: D o not add to previous draw Performed By: #### 0 0071, [id number] ####[facility] [place] [address], [facility] GFR/1.73 sq M.predicted among non-blacks MDRD (S/P/Bld) [Vol rate/Area] mL/min/{1.73_m2} Normal >60 [facility] Comment on above: Order Comment: No: D o not add to previous draw Result Comment: [facility]'s estimated glomerular filtration rate (eGFR) will [...] of individuals. Performed By: #### 0 0071, 36659 ####[facility] [facility] [place] [address], [facility] Glucose [Mass/Vol] 100 mg/dL Normal 70-100 [facility] Comment on above: Order Comment: No: D o not add to previous draw Performed By: #### 0 0071, 80702 ####[facility] [facility] [place] [place] [address], [facility] Potassium [Moles/Vol] 4.7 mmol/L Normal 3.5-5.1 [facility] Comment on above: Order Comment: No: D o not add to previous draw Performed By: #### 0 0071, [id number] ####[facility] [place] [address], [facility] Sodium [Moles/Vol] 137 mmol/L Normal 136-145 [facility] Comment on above: Order Comment: No: D o not add to previous draw Performed By: #### 0 0071, [id number] ####[facility] [place] [address], [facility] Urea nitrogen [Mass/Vol] 21 mg/dL Normal 7-25 [facility] Comment on above: Order Comment: No: D o not add to previous draw Performed By: #### 0 0071, 13898 ####[facility] CBC COMPLETE BLOOD COUNTon 0 11-27-2021 Erythrocyte distribution width (RBC) [Ratio] 13.3 % Normal 11.5-15.0 [facility] Comment on above: Order Comment: No: D o not add to previous draw Performed By: #### 5 0608 #### [facility] [address] [place] [address], [facility] Hematocrit (Bld) [Volume fraction] 25.2 % Low 36.0-45.0 [facility] Comment on above: Order Comment: No: D o not add to previous draw Performed By: #### 5 0608 #### [facility] [address] Hemoglobin (Bld) [Mass/Vol] 7.9 g/dL Low 12.0-15.0 [facility] Comment on above: Order Comment: No: D o not add to previous draw Performed By: #### 5 0608 #### [facility] [address] [place] [address], [facility] MCH (RBC) [Entitic mass] 30.6 pg Normal 27.0-33.0 [facility] Comment on above: Order Comment: No: D o not add to previous draw Performed By: #### 5 0608 #### [facility] [address] [place] [address], [facility] MCHC (RBC) [Mass/Vol] 31.3 g/dL Low 32.0-35.0 [facility] Comment on above: Order Comment: No: D o not add to previous draw Performed By: #### 5 0608 #### [facility] [address] [place] [address], [facility] MCV (RBC) [Entitic vol] 97.7 fL Normal 82.0-98.0 [facility] Comment on above: Order Comment: No: D o not add to previous draw Performed By: #### 5 0608 #### [facility] [address] Nucleated RBC/100 WBC (Bld) [Ratio] 0 % Normal 0-0 [facility] Comment on above: Order Comment: No: D o not add to previous draw Performed By: #### 5 0608 #### [facility] [address] [place] [address], [facility] PLAT CNT 179 10*3/uL Normal 150-400 [facility] Comment on above: Order Comment: No: D o not add to previous draw Performed By: #### 5 0608 #### [facility] [address] [facility] [place] [address], [facility] RBC (Bld) [#/Vol] 2.58 10*6/uL Low 3.80-5.00 [facility] Comment on above: Order Comment: No: D o not add to previous draw Performed By: #### 5 0608 #### [facility] [address] [facility] [place] [address], [facility] WBC (Bld) [#/Vol] 7.89 10*3/uL Normal 4.00-10.60 [facility] Comment on above: Order Comment: No: D o not add to previous draw Performed By: #### 5 0608 #### [facility] [address] [facility]. [address] PHOSPHORUS BLOODon Phosphate [Mass/Vol] 3.2 mg/dL Normal 2.5-5.0 [facility] Comment on above: Order Comment: No: D o not add to previous draw Performed By: #### 0 0071, 17267 ####[facility] [facility].[address] BASIC METABOLIC PANELon - Calcium [Mass/Vol] 7.6 mg/dL Low 8.6-10.3 [facility] Comment on above: Order Comment: Hemog lobin < 9 gm/dl with known cardiac or cerebrovascular disease Performed By: #### 8 6002 #### [facility] [address] [place] [address], [facility] Chloride [Moles/Vol] 104 mmol/L Normal 98-107 [facility] Comment on above: Order Comment: Hemog lobin < 9 gm/dl with known cardiac or cerebrovascular disease Performed By: #### 8 6002 #### [facility] [address] [place] [address], [place] CO2 [Moles/Vol] 24 mmol/L Normal 21-31 [facility] Comment on above: Order Comment: Hemog lobin < 9 gm/dl with known cardiac or cerebrovascular disease Performed By: #### 8 6002 #### [facility] [address] [place] [address], [facility] Creatinine [Mass/Vol] 0.76 mg/dL Normal 0.60-1.20 [facility] Comment on above: Order Comment: Hemog lobin < 9 gm/dl with known cardiac or cerebrovascular disease Performed By: #### 8 6002 #### [facility] [address] [place] [address], [facility] GFR/1.73 sq M.predicted among non-blacks MDRD (S/P/Bld) [Vol rate/Area] mL/min/{1.73_m2} Normal >60 [facility] Comment on above: Order Comment: Hemog lobin < 9 gm/dl with known cardiac or cerebrovascular disease Result Comment: [facility]'s estimated glomerular filtration rate (eGFR) will [...] individuals. Performed By: #### 8 6002 #### [facility] [address] [place] [id number], [facility] Glucose [Mass/Vol] 100 mg/dL Normal 70-100 [facility] Comment on above: Order Comment: Hemog lobin < 9 gm/dl with known cardiac or cerebrovascular disease Performed By: #### 8 6002 #### [facility] [address] [place] [address], [facility] Potassium [Moles/Vol] 4.5 mmol/L Normal 3.5-5.1 [facility] Comment on above: Order Comment: Hemog lobin < 9 gm/dl with known cardiac or cerebrovascular disease Performed By: #### 8 6002 #### [facility] [address] [place] [address], [facility] Sodium [Moles/Vol] 136 mmol/L Normal 136-145 [facility] Comment on above: Order Comment: Hemog lobin < 9 gm/dl with known cardiac or cerebrovascular disease Performed By: #### 8 6002 #### [facility] [address] [place] [id number], [facility] Urea nitrogen [Mass/Vol] 18 mg/dL Normal 7-25 [facility] Comment on above: Order Comment: Hemog lobin < 9 gm/dl with known cardiac or cerebrovascular disease Performed By: #### 8 6002 #### [facility] [address] [place] [address], [facility] CBC COMPLETE BLOOD COUNTon 0 7- Hematocrit (Bld) [Volume fraction] 23.0 % Low 36.0-45.0 [facility] Comment on above: Order Comment: No: D o not add to previous draw Performed By: #### 5 0608 #### [facility] [address] [place] [id number], [facility] Hemoglobin (Bld) [Mass/Vol] 7.3 g/dL Low 12.0-15.0 [facility] Comment on above: Order Comment: No: D o not add to previous draw Performed By: #### 5 0608 #### [facility] [address] [place] [id number], [facility] MCH (RBC) [Entitic mass] 30.7 pg Normal 27.0-33.0 [facility] Comment on above: Order Comment: No: D o not add to previous draw Performed By: #### 5 0608 #### [facility] [address] [place] [address], [facility] MCHC (RBC) [Mass/Vol] 31.7 g/dL Low 32.0-35.0 [facility] Comment on above: Order Comment: No: D o not add to previous draw Performed By: #### 5 0608 #### [facility] [address] [place] [id number], [facility] MCV (RBC) [Entitic vol] 96.6 fL Normal 82.0-98.0 [facility] Comment on above: Order Comment: No: D o not add to previous draw Performed By: #### 5 0608 #### [facility] [address] [place] [id number], [place] PLAT CNT 144 10*3/uL Low 150-400 [facility] Comment on above: Order Comment: No: D o not add to previous draw Performed By: #### 5 0608 #### [facility] [address] [place] [id number], [place] RBC (Bld) [#/Vol] 2.38 10*6/uL Low 3.80-5.00 [facility] Comment on above: Order Comment: No: D o not add to previous draw Performed By: #### 5 0608 #### [facility] [address] [place] [address], [place] WBC (Bld) [#/Vol] 8.38 10*3/uL Normal 4.00-10.60 [facility] Comment on above: Order Comment: No: D o not add to previous draw Performed By: #### 5 0608 #### [facility] [address] [place] [address], [facility] Erythrocyte distribution width (RBC) [Ratio] 13.4 % Normal 11.5-15.0 [facility] Comment on above: Order Comment: No: D o not add to previous draw Performed By: #### 5 0608 #### [facility] [address] [place] [address], [facility] Nucleated RBC/100 WBC (Bld) [Ratio] 0 % Normal 0-0 [facility] Comment on above: Order Comment: No: D o not add to previous draw Performed By: #### 5 0608 #### [facility] [address] [place] [address], [facility] CBC W/DIFFon 11-26-2021 ABS IMM GRANS 0.0 10*3/uL Normal 0.0-0.2 The [facility] Comment on above: Order Comment: No: D o not add to previous draw Performed By: #### 5 0608 #### [facility] [address] [place] [address], [facility] ABS NEUTROPHILS 4.4 10*3/uL Normal 1.6-7.6 The [facility] Comment on above: Order Comment: No: D o not add to previous draw Performed By: #### 5 0608 #### [facility] [address] [place] [address], [facility] Basophils (Bld) [#/Vol] 0.0 10*3/uL Normal 0.0-0.2 [facility] Comment on above: Order Comment: No: D o not add to previous draw Performed By: #### 5 0608 #### [facility] [address] [place] [address], [facility] Basophils/100 WBC (Bld) 0.2 % Normal 0.0-1.0 [facility] Comment on above: Order Comment: No: D o not add to previous draw Performed By: #### 5 0608 #### [facility] [address] [place] [address], [facility] Eosinophils (Bld) [#/Vol] 0.2 10*3/uL Normal 0.0-0.5 [facility] Comment on above: Order Comment: No: D o not add to previous draw Performed By: #### 5 0608 #### [facility] [address] [place] [address], [facility] Eosinophils/100 WBC (Bld) 1.8 % Normal 0.0-6.0 [facility] Comment on above: Order Comment: No: D o not add to previous draw Performed By: #### 5 0608 #### [facility] [address] [place] [address], [facility] Hematocrit (Bld) [Volume fraction] 23.3 % Low 36.0-45.0 [facility] Comment on above: Order Comment: No: D o not add to previous draw Performed By: #### 5 0608 #### [facility] [address] [place] [address], [facility] Hemoglobin (Bld) [Mass/Vol] 7.6 g/dL Low 12.0-15.0 [facility] Comment on above: Order Comment: No: D o not add to previous draw Performed By: #### 5 0608 #### [facility] [address] [place] [address], [facility] IMM PLATELET FRAC 1.8 % Normal 0.8-6.3 The [facility] Comment on above: Order Comment: No: D o not add to previous draw Performed By: #### 5 0608 #### [facility] [address] [place] [address], [facility] IMMATURE GRANS 0.5 % Normal 0.0-1.0 The [facility] Comment on above: Order Comment: No: D o not add to previous draw Performed By: #### 5 0608 #### [facility] [address] [place] [address], [facility] Lymphocytes (Bld) [#/Vol] 2.9 10*3/uL Normal 1.2-4.0 [facility] Comment on above: Order Comment: No: D o not add to previous draw Performed By: #### 5 0608 #### [facility] [address] [place] [address], [facility] Lymphocytes/100 WBC (Bld) 33.7 % Normal 20.0-45.0 [facility] Comment on above: Order Comment: No: D o not add to previous draw Performed By: #### 5 0608 #### [facility] [address] [place] [address], [facility] MCH (RBC) [Entitic mass] 31.7 pg Normal 27.0-33.0 [facility] Comment on above: Order Comment: No: D o not add to previous draw Performed By: #### 5 0608 #### [facility] [address] [place] [address], [facility] MCHC (RBC) [Mass/Vol] 32.6 g/dL Normal 32.0-35.0 [facility] Comment on above: Order Comment: No: D o not add to previous draw Performed By: #### 5 0608 #### [facility] [address] [place] [id number], [facility] MCV (RBC) [Entitic vol] 97.1 fL Normal 82.0-98.0 [facility] Comment on above: Order Comment: No: D o not add to previous draw Performed By: #### 5 0608 #### [facility] [address] [place] [address], [facility] Monocytes (Bld) [#/Vol] 1.1 10*3/uL High 0.1-1.0 [facility] Comment on above: Order Comment: No: D o not add to previous draw Performed By: #### 5 0608 #### [facility] [address] [place] [address], [facility] MONOS 12.9 % High 5.0-12.0 [facility] Comment on above: Order Comment: No: D o not add to previous draw Performed By: #### 5 0608 #### [facility] [address] [place] [address], [facility] Neutrophils/100 WBC (Bld) 50.9 % Normal 40.0-72.0 [facility] Comment on above: Order Comment: No: D o not add to previous draw Performed By: #### 5 0608 #### [facility] [address] [facility] [place] [address], [facility] PLAT CNT 143 10*3/uL Low 150-400 The [facility] Comment on above: Order Comment: No: D o not add to previous draw Result Comment: RESU LTS CHECKED Performed By: #### 5 0608 #### [facility] [address] [facility] [place] [address], [facility] RBC (Bld) [#/Vol] 2.40 10*6/uL Low 3.80-5.00 [facility] Comment on above: Order Comment: No: D o not add to previous draw Performed By: #### 5 0608 #### [facility] [address] [place] [id number], [facility] WBC (Bld) [#/Vol] 8.54 10*3/uL Normal 4.00-10.60 [facility] Comment on above: Order Comment: No: D o not add to previous draw Performed By: #### 5 0608 #### [facility] [address] [place] [address], [facility] MAGNESIUM BLOODon 11-26-2021 Magnesium [Mass/Vol] 1.9 mg/dL Normal 1.9-2.7 [facility] Comment on above: Order Comment: No: D o not add to previous draw Performed By: #### 5 0608 #### [facility] [address] [place] [address], [facility] PHOSPHORUS BLOODon Phosphate [Mass/Vol] 2.3 mg/dL Low 2.5-5.0 [facility] Comment on above: Order Comment: No: D o not add to previous draw Performed By: #### 5 0608 #### [facility] [address] [place] [address], [facility] BASIC METABOLIC PANELon 10-31 Calcium [Mass/Vol] 7.7 mg/dL Low 8.6-10.3 [facility] Comment on above: Order Comment: Evalu ate Performed By: #### 4 1000, 72258, 29594 ####[facility] [place] [address], [facility] Chloride [Moles/Vol] 104 mmol/L Normal 98-107 [facility] Comment on above: Order Comment: Evalu ate Performed By: #### 4 1000, 77442, 39188 ####[facility] [place] [address], [place] CO2 [Moles/Vol] 27 mmol/L Normal 21-31 The [facility] Comment on above: Order Comment: Evalu ate Performed By: #### 4 1000, 60656, 65362 ####[facility] [place] [address], [facility] Creatinine [Mass/Vol] 0.85 mg/dL Normal 0.60-1.20 [facility] Comment on above: Order Comment: Evalu ate Performed By: #### 4 1000, 10559, 21387 ####[facility] [place] [address], [facility] GFR/1.73 sq M.predicted among non-blacks MDRD (S/P/Bld) [Vol rate/Area] mL/min/{1.73_m2} Normal >60 [facility] Comment on above: Order Comment: Evalu ate Result Comment: [facility]'s estimated glomerular filtration rate (eGFR) will [...] of individuals. Performed By: #### 4 999, 19669, 09426 ####[facility] [facility] [place] [address], [facility] Glucose [Mass/Vol] 109 mg/dL High 70-100 The [facility] Comment on above: Order Comment: Evalu ate Performed By: #### 4 999, 97818, 29154 ####[facility] [facility] [place] [address], [facility] Potassium [Moles/Vol] 4.1 mmol/L Normal 3.5-5.1 [facility] Comment on above: Order Comment: Evalu ate Performed By: #### 4 999, 62026, 71619 ####[facility] [facility] [place] [address], [facility] Sodium [Moles/Vol] 137 mmol/L Normal 136-145 [facility] Comment on above: Order Comment: Evalu ate Performed By: #### 4 1000, 01705, 52795 ####[facility] [facility] [place] [address], [facility] Urea nitrogen [Mass/Vol] 22 mg/dL Normal 7-25 [facility] Comment on above: Order Comment: Evalu ate Performed By: #### 4 1000, 27909, 52497 ####[facility] [place] [address], [facility] CBC W/DIFFon 11-25-2021 ABS IMM GRANS 0.0 10*3/uL Normal 0.0-0.2 The [facility] Comment on above: Order Comment: No: D o not add to previous draw Performed By: #### 5 0608 #### [facility] [address] [place] [address], [facility] ABS NEUTROPHILS 5.7 10*3/uL Normal 1.6-7.6 The [facility] Comment on above: Order Comment: No: D o not add to previous draw Performed By: #### 5 0608 #### [facility] [address] [place] [address], [facility] Basophils (Bld) [#/Vol] 0.0 10*3/uL Normal 0.0-0.2 [facility] Comment on above: Order Comment: No: D o not add to previous draw Performed By: #### 5 0608 #### [facility] [address] [place] [address], [facility] Basophils/100 WBC (Bld) 0.1 % Normal 0.0-1.0 [facility] Comment on above: Order Comment: No: D o not add to previous draw Performed By: #### 5 0608 #### [facility] [address] [facility] [place] [address], [facility] Eosinophils (Bld) [#/Vol] 0.2 10*3/uL Normal 0.0-0.5 [facility] Comment on above: Order Comment: No: D o not add to previous draw Performed By: #### 5 0608 #### [facility] [address] [place] [address], [facility] Eosinophils/100 WBC (Bld) 2.4 % Normal 0.0-6.0 [facility] Comment on above: Order Comment: No: D o not add to previous draw Performed By: #### 5 0608 #### [facility] [address] [place] [address], [facility] Erythrocyte distribution width (RBC) [Ratio] 13.4 % Normal 11.5-15.0 [facility] Comment on above: Order Comment: No: D o not add to previous draw Performed By: #### 5 0608 #### [facility] [address] [place] [address], [facility] Hematocrit (Bld) [Volume fraction] 23.2 % Low 36.0-45.0 [facility] Comment on above: Order Comment: No: D o not add to previous draw Performed By: #### 5 0608 #### [facility] [address] [place] [address], [facility] Hemoglobin (Bld) [Mass/Vol] 7.4 g/dL Low 12.0-15.0 [facility] Comment on above: Order Comment: No: D o not add to previous draw Performed By: #### 5 0608 #### [facility] [address] [facility] [place] [address], [facility] IMMATURE GRANS 0.4 % Normal 0.0-1.0 The [facility] Comment on above: Order Comment: No: D o not add to previous draw Performed By: #### 5 0608 #### [facility] [address] [facility] [place] [address], [facility] Lymphocytes (Bld) [#/Vol] 2.2 10*3/uL Normal 1.2-4.0 [facility] Comment on above: Order Comment: No: D o not add to previous draw Performed By: #### 5 0608 #### [facility] [address] [place] [address], [facility] Lymphocytes/100 WBC (Bld) 23.2 % Normal 20.0-45.0 [facility] Comment on above: Order Comment: No: D o not add to previous draw Performed By: #### 5 0608 #### [facility] [address] [place] [address], [facility] MCH (RBC) [Entitic mass] 30.7 pg Normal 27.0-33.0 [facility] Comment on above: Order Comment: No: D o not add to previous draw Performed By: #### 5 0608 #### [facility] [address] [place] [address], [facility] MCHC (RBC) [Mass/Vol] 31.9 g/dL Low 32.0-35.0 [facility] Comment on above: Order Comment: No: D o not add to previous draw Performed By: #### 5 0608 #### [facility] [address] [place] [address], [facility] MCV (RBC) [Entitic vol] 96.3 fL Normal 82.0-98.0 [facility] Comment on above: Order Comment: No: D o not add to previous draw Performed By: #### 5 0608 #### [facility] [address] [place] [address], [facility] Monocytes (Bld) [#/Vol] 1.2 10*3/uL High 0.1-1.0 [facility] Comment on above: Order Comment: No: D o not add to previous draw Performed By: #### 5 0608 #### [facility] [address] [facility] [place] [address], [facility] MONOS 12.8 % High 5.0-12.0 [facility] Comment on above: Order Comment: No: D o not add to previous draw Performed By: #### 5 0608 #### [facility] [address] [place] [address], [facility] Neutrophils/100 WBC (Bld) 61.1 % Normal 40.0-72.0 [facility] Comment on above: Order Comment: No: D o not add to previous draw Performed By: #### 5 0608 #### [facility] [address] [place] [address], [facility] Nucleated RBC/100 WBC (Bld) [Ratio] 0 % Normal 0-0 [facility] Comment on above: Order Comment: No: D o not add to previous draw Performed By: #### 5 0608 #### [facility] [address] [place] [address], [facility] PLAT CNT 145 10*3/uL Low 150-400 The [facility] Comment on above: Order Comment: No: D o not add to previous draw Performed By: #### 5 0608 #### [facility] [address] [facility] [place] [address], [facility] RBC (Bld) [#/Vol] 2.41 10*6/uL Low 3.80-5.00 [facility] Comment on above: Order Comment: No: D o not add to previous draw Performed By: #### 5 0608 #### [facility] [address] [facility] [place] [address], [facility] WBC (Bld) [#/Vol] 9.31 10*3/uL Normal 4.00-10.60 [facility] Comment on above: Order Comment: No: D o not add to previous draw Performed By: #### 5 0608 #### [facility] [address] [place] [address], [facility] MAGNESIUM BLOODon 11-25-2021 Magnesium [Mass/Vol] 1.8 mg/dL Low 1.9-2.7 [facility] Comment on above: Order Comment: No: D o not add to previous draw Performed By: #### 4 1000, 68997, 47050 ####[facility] [place] [address], [facility] PHOSPHORUS BLOODon Phosphate [Mass/Vol] 1.8 mg/dL Low 2.5-5.0 [facility] Comment on above: Order Comment: Evalu ate Performed By: #### 4 1000, 80284, 79354 ####[facility] [place] [address], [facility] BASIC METABOLIC PANELon - Calcium [Mass/Vol] 7.6 mg/dL Low 8.6-10.3 [facility] Comment on above: Order Comment: Hemog lobin < 9 gm/dl with known cardiac or cerebrovascular disease Performed By: #### 8 6002 #### [facility] [address] [place] [address], [facility] Chloride [Moles/Vol] 105 mmol/L Normal 98-107 [facility] Comment on above: Order Comment: Hemog lobin < 9 gm/dl with known cardiac or cerebrovascular disease Performed By: #### 8 6002 #### [facility] [address] [place] [address], [place] CO2 [Moles/Vol] 28 mmol/L Normal 21-31 [facility] Comment on above: Order Comment: Hemog lobin < 9 gm/dl with known cardiac or cerebrovascular disease Performed By: #### 8 6002 #### [facility] [address] [place] [address], [place] Creatinine [Mass/Vol] 0.77 mg/dL Normal 0.60-1.20 [facility] Comment on above: Order Comment: Hemog lobin < 9 gm/dl with known cardiac or cerebrovascular disease Performed By: #### 8 6002 #### [facility] [address] [place] [address], [facility] GFR/1.73 sq M.predicted among non-blacks MDRD (S/P/Bld) [Vol rate/Area] mL/min/{1.73_m2} Normal >60 [facility] Comment on above: Order Comment: Hemog lobin < 9 gm/dl with known cardiac or cerebrovascular disease Result Comment: [facility]'s estimated glomerular filtration rate (eGFR) will [...] individuals. Performed By: #### 8 6002 #### [facility] [address] [place] [address], [facility] Glucose [Mass/Vol] 103 mg/dL High 70-100 The [facility] Comment on above: Order Comment: Hemog lobin < 9 gm/dl with known cardiac or cerebrovascular disease Performed By: #### 8 6002 #### [facility] [address] [place] [address], [facility] Potassium [Moles/Vol] 4.4 mmol/L Normal 3.5-5.1 [facility] Comment on above: Order Comment: Hemog lobin < 9 gm/dl with known cardiac or cerebrovascular disease Performed By: #### 8 6002 #### [facility] [address] [place] [address], [facility] Sodium [Moles/Vol] 138 mmol/L Normal 136-145 [facility] Comment on above: Order Comment: Hemog lobin < 9 gm/dl with known cardiac or cerebrovascular disease Performed By: #### 8 6002 #### [facility] [address] [place] [address], [facility] Urea nitrogen [Mass/Vol] 19 mg/dL Normal 7-25 [facility] Comment on above: Order Comment: Hemog lobin < 9 gm/dl with known cardiac or cerebrovascular disease Performed By: #### 8 6002 #### [facility] [address] [place] [address], [facility] CBC COMPLETE BLOOD COUNTon 0 - Erythrocyte distribution width (RBC) [Ratio] 13.5 % Normal 11.5-15.0 [facility] Comment on above: Order Comment: No: D o not add to previous draw Performed By: #### 5 0608 #### [facility] [address] [place] [id number], [facility] Hematocrit (Bld) [Volume fraction] 26.0 % Low 36.0-45.0 [facility] Comment on above: Order Comment: No: D o not add to previous draw Performed By: #### 5 0608 #### [facility] [address] [place] [address], [facility] Hemoglobin (Bld) [Mass/Vol] 8.4 g/dL Low 12.0-15.0 [facility] Comment on above: Order Comment: No: D o not add to previous draw Performed By: #### 5 0608 #### [facility] [address] [place] [id number], [facility] MCH (RBC) [Entitic mass] 31.1 pg Normal 27.0-33.0 [facility] Comment on above: Order Comment: No: D o not add to previous draw Performed By: #### 5 0608 #### [facility] [address] [place] [id number], [facility] MCHC (RBC) [Mass/Vol] 32.3 g/dL Normal 32.0-35.0 [facility] Comment on above: Order Comment: No: D o not add to previous draw Performed By: #### 5 0608 #### [facility] [address] [place] [address], [facility] MCV (RBC) [Entitic vol] 96.3 fL Normal 82.0-98.0 [facility] Comment on above: Order Comment: No: D o not add to previous draw Performed By: #### 5 0608 #### [facility] [address] [place] [id number], [facility] Nucleated RBC/100 WBC (Bld) [Ratio] 0 % Normal 0-0 [facility] Comment on above: Order Comment: No: D o not add to previous draw Performed By: #### 5 0608 #### [facility] [address] [place] [address], [facility] PLAT CNT 155 10*3/uL Normal 150-400 The [facility] Comment on above: Order Comment: No: D o not add to previous draw Performed By: #### 5 0608 #### [facility] [address] [place] [address], [facility] RBC (Bld) [#/Vol] 2.70 10*6/uL Low 3.80-5.00 [facility] Comment on above: Order Comment: No: D o not add to previous draw Performed By: #### 5 0608 #### [facility] [address] [place] [address], [facility] WBC (Bld) [#/Vol] 11.01 10*3/uL High 4.00-10.60 [facility] Comment on above: Order Comment: No: D o not add to previous draw Performed By: #### 5 0608 #### [facility] [address] MAGNESIUM BLOODon 11-24-2021 Magnesium [Mass/Vol] 1.7 mg/dL Low 1.9-2.7 [facility] Comment on above: Order Comment: Hemog lobin < 9 gm/dl with known cardiac or cerebrovascular disease Performed By: #### 8 6002 #### [facility] [address] Operative Reporton 2 Operative Report MR#: [id number] I [facility] Pt. Name: Myranda Yanes Room #: [id number] Discharge Date: Birthdate: 1940 OPERATIVE REPORT DATE OF SURGERY: 11/23/2021 SURGEON: Jaskaran Beal M.D. ASSISTANTS: 1. Manjinder Davis MD. 2. Jus Yancey MD. 3. Ankit Tobias MD. PREOPERATIVE DIAGNOSIS: Left tibial shaft fracture. POSTOPERATIVE DIAGNOSIS: Left tibial shaft fracture. PROCEDURE PERFORMED: Intramedullary nailing of left tibial shaft fracture. ANESTHESIA: General. BLOOD LOSS: Minimal. FLUIDS: Per anesthesia record. SPECIMENS: None. COMPLICATIONS: None. IMPLANTS: One [place] T2 alpha tibial nail measuring 11 x [...] Davis MD Date Trans: 11/24/2021 04:10 A/lalo KILGORE_JN:[id number] cc: Whitney Goodman M.D. [address] [facility] [id number] [place] [facility] 2 Phosphate [Mass/Vol] 3.7 mg/dL Normal 2.5-5.0 [facility] Comment on above: Order Comment: Hemog lobin < 9 gm/dl with known cardiac or cerebrovascular disease Performed By: #### 8 6002 #### [facility] [address] *MRSA/MSSA DNA NASALon 11-23 *MRSA/MSSA DNA NASAL Clinical Report: (D) Specimen: NASAL SWAB Collected: 11/23/2021 15:10 Status: Final Last Updated: 11/23/2021 22:50 MSSA DNA (Final) Negative MRSA DNA (Final) Negative Normal [facility] Comment on above: Performed By: #### 3 1595 #### [facility] [address] [place] [address], [facility] BASIC METABOLIC PANELon 10-31 Calcium [Mass/Vol] 7.9 mg/dL Low 8.6-10.3 [facility] Comment on above: Order Comment: No: D o not add to previous draw Performed By: #### 5 0608 #### [facility] [address] [address], [facility] Chloride [Moles/Vol] 104 mmol/L Normal 98-107 [facility] Comment on above: Order Comment: No: D o not add to previous draw Performed By: #### 5 0608 #### [facility] [address] [place] [address], [facility] CO2 [Moles/Vol] 26 mmol/L Normal 21-31 [facility] Comment on above: Order Comment: No: D o not add to previous draw Performed By: #### 5 0608 #### [facility] [address] [place] [address], [facility] Creatinine [Mass/Vol] 0.83 mg/dL Normal 0.60-1.20 [facility] Comment on above: Order Comment: No: D o not add to previous draw Performed By: #### 5 0608 #### [facility] [address] [place] [address], [place] GFR/1.73 sq M.predicted among blacks MDRD (S/P/Bld) [Vol rate/Area] mL/min/{1.73_m2} Normal >60 [facility] Comment on above: Order Comment: No: D o not add to previous draw Result Comment: Calc ulation may not be valid for patients over 70 years Performed By: #### 5 0608 #### [facility] [address] [place] [address], [place] GFR/1.73 sq M.predicted among non-blacks MDRD (S/P/Bld) [Vol rate/Area] mL/min/{1.73_m2} Normal >60 [facility] Comment on above: Order Comment: No: D o not add to previous draw Result Comment: Calc ulation may not be valid for patients over 70 years Performed By: #### 5 0608 #### [facility] [address] [place] [address], [place] Glucose [Mass/Vol] 104 mg/dL High 70-100 [facility] Comment on above: Order Comment: No: D o not add to previous draw Performed By: #### 5 0608 #### [facility] [address] [place] [address], [place] Potassium [Moles/Vol] 4.2 mmol/L Normal 3.5-5.1 [facility] Comment on above: Order Comment: No: D o not add to previous draw Performed By: #### 5 0608 #### [facility] [address] [place] [address], [place] Sodium [Moles/Vol] 136 mmol/L Normal 136-145 [facility] Comment on above: Order Comment: No: D o not add to previous draw Performed By: #### 5 0608 #### [facility] [address] [place] [address], [place] Urea nitrogen [Mass/Vol] 25 mg/dL Normal 7-25 [facility] Comment on above: Order Comment: No: D o not add to previous draw Performed By: #### 5 0608 #### [facility] [address] [place] [address], [facility] CBC COMPLETE BLOOD COUNTon 0 11-23-2021 Erythrocyte distribution width (RBC) [Ratio] 13.5 % Normal 11.5-15.0 [facility] Comment on above: Order Comment: No: D o not add to previous draw Performed By: #### 5 0608 #### [facility] [address] [place] [address], [facility] Hematocrit (Bld) [Volume fraction] 22.7 % Low 36.0-45.0 [facility] Comment on above: Order Comment: No: D o not add to previous draw Performed By: #### 5 0608 #### [facility] [address] [place] [address], [facility] Hemoglobin (Bld) [Mass/Vol] 7.3 g/dL Low 12.0-15.0 [facility] Comment on above: Order Comment: No: D o not add to previous draw Performed By: #### 5 0608 #### [facility] [address] [place] [address], [facility] MCH (RBC) [Entitic mass] 31.2 pg Normal 27.0-33.0 [facility] Comment on above: Order Comment: No: D o not add to previous draw Performed By: #### 5 0608 #### [facility] [address] [place] [address], [facility] MCHC (RBC) [Mass/Vol] 32.2 g/dL Normal 32.0-35.0 [facility] Comment on above: Order Comment: No: D o not add to previous draw Performed By: #### 5 0608 #### [facility] [address] MCV (RBC) [Entitic vol] 97.0 fL Normal 82.0-98.0 [facility] Comment on above: Order Comment: No: D o not add to previous draw Performed By: #### 5 0608 #### [facility] [address] [place] [address], [facility] Nucleated RBC/100 WBC (Bld) [Ratio] 0 % Normal 0-0 [facility] Comment on above: Order Comment: No: D o not add to previous draw Performed By: #### 5 0608 #### [facility] [address] [place] [address], [facility] PLAT CNT 146 10*3/uL Low 150-400 [facility] Comment on above: Order Comment: No: D o not add to previous draw Performed By: #### 5 0608 #### [facility] [address] [place] [address], [facility] RBC (Bld) [#/Vol] 2.34 10*6/uL Low 3.80-5.00 [facility] Comment on above: Order Comment: No: D o not add to previous draw Performed By: #### 5 0608 #### [facility] [address] [place] [address], [facility] WBC (Bld) [#/Vol] 9.70 10*3/uL Normal 4.00-10.60 [facility] Comment on above: Order Comment: No: D o not add to previous draw Performed By: #### 5 0608 #### [facility] [address] [place] [address], [facility] HEMOGLOBINon 11-23-2021 Hemoglobin (Bld) [Mass/Vol] 9.5 g/dL Low 12.0-15.0 [facility] Comment on above: Order Comment: No: D o not add to previous draw Performed By: #### 5 0608 #### [facility] [address] [place] [address], [facility] MAGNESIUM BLOODon 11-23-2021 Magnesium [Mass/Vol] 1.7 mg/dL Low 1.9-2.7 [facility] [facility] Comment on above: Order Comment: No: D o not add to previous draw Performed By: #### 5 0608 #### [facility] [address] [place] [address], [facility] PHOSPHORUS BLOODon 2 Phosphate [Mass/Vol] 2.1 mg/dL Low 2.5-5.0 The [facility] Comment on above: Order Comment: No: D o not add to previous draw Performed By: #### 5 0608 #### [facility] [address] [place] [address], [facility] POC GLUCOSE LABon 11-23-2021 Glucose [Mass/Vol] 82 mg/dL Normal 70-100 The [facility] Comment on above: Performed By: #### 8 5499 #### [facility] [address] [place] [address], [facility] RBC'S 1 UNITon 11-23-2021 CROSSMATCH INTERP 1 COMP Normal The [facility] Comment on above: Performed By: #### 8 6001 ####[facility] [facility].[address] PRODUCT CODE 1 E0336 Normal The [facility] Comment on above: Performed By: #### 8 6001 ####[facility] [facility].[address] PRODUCT STATUS 1 RE Normal The [facility] Comment on above: Result Comment: Resu lt changed by IF on 11/23/2021 16:20. The previous value was XM. Result changed by IF on 11/23/2021 18:36. The previous value was IS. Result changed by IF on 11/25/2021 07:10. The previous value was XM. Performed By: #### 8 6001 ####[facility] [place] [address], [facility] UNIT ABO 1 A Normal [facility] Comment on above: Performed By: #### 8 6001 ####[facility] [place] [address], [facility] UNIT ID 1 [id number] Normal The [facility] [place] [facility] Comment on above: Performed By: #### 8 6001 ####[facility] [place] [address], [facility] UNIT RH 1 Positive Normal The [facility] Comment on above: Performed By: #### 8 6001 ####[facility] [facility] [place] [place] [address], [facility] RBC'S 2 UNITSon 11-23-2021 CROSSMATCH INTERP 1 COMP Normal The [facility] Comment on above: Order Comment: Hemog lobin < 9 gm/dl with known cardiac or cerebrovascular disease Performed By: #### 8 6002 #### [facility] [address] [place] [address], [facility] CROSSMATCH INTERP 2 COMP Normal [facility] Comment on above: Order Comment: Hemog lobin < 9 gm/dl with known cardiac or cerebrovascular disease Performed By: #### 8 6002 #### [facility] [address] [place] [address], [facility] PRODUCT CODE 1 E0336 Normal The [facility] Comment on above: Order Comment: Hemog lobin < 9 gm/dl with known cardiac or cerebrovascular disease Performed By: #### 8 6002 #### [facility] [address] [place] [address], [facility] PRODUCT CODE 2 E0336 Normal The [facility] Comment on above: Order Comment: Hemog lobin < 9 gm/dl with known cardiac or cerebrovascular disease Performed By: #### 8 6002 #### [facility] [address] PRODUCT STATUS 1 RE Normal [facility] [place] [facility] Comment on above: Order Comment: Hemog lobin < 9 gm/dl with known cardiac or cerebrovascular disease Result Comment: Resu lt changed by IF on 11/23/2021 16:20. The previous value was XM. Result changed by IF on 11/23/2021 18:36. The previous value was IS. Result changed by IF on 11/25/2021 07:10. The previous value was XM. Performed By: #### 8 6002 #### [facility] [address] PRODUCT STATUS 2 PT Normal The [facility] Comment on above: Order Comment: Hemog lobin < 9 gm/dl with known cardiac or cerebrovascular disease Result Comment: Resu lt changed by IF on 11/23/2021 10:46. The previous value was XM. Result changed by IF on 11/24/2021 00:30. The previous value was IS. Performed By: #### 8 6002 #### [facility] [address] [place] [address], [facility] UNIT ABO 1 A Normal [facility] Comment on above: Order Comment: Hemog lobin < 9 gm/dl with known cardiac or cerebrovascular disease Performed By: #### 8 6002 #### [facility] [address] [place] [address], [facility] UNIT ABO 2 A Normal [facility] Comment on above: Order Comment: Hemog lobin < 9 gm/dl with known cardiac or cerebrovascular disease Performed By: #### 8 6002 #### [facility] [address] [place] [address], [facility] UNIT ID 1 [id number] Normal The [facility] [place] [facility] Comment on above: Order Comment: Hemog lobin < 9 gm/dl with known cardiac or cerebrovascular disease Performed By: #### 8 6002 #### [facility] [address] [facility] UNIT ID 2 [id number] Normal The [facility] [place] [facility] Comment on above: Order Comment: Hemog lobin < 9 gm/dl with known cardiac or cerebrovascular disease Performed By: #### 8 6002 #### [facility] [address] [facility] UNIT RH 1 Positive Normal [facility] Comment on above: Order Comment: Hemog lobin < 9 gm/dl with known cardiac or cerebrovascular disease Performed By: #### 8 6002 #### [facility] [address] [facility] [place] [address], [facility] UNIT RH 2 Positive Normal [facility] Comment on above: Order Comment: Hemog lobin < 9 gm/dl with known cardiac or cerebrovascular disease Performed By: #### 8 6002 #### [facility] [address] [facility]. [address] TIBIA FIBULA LEFTon 11-24-19 22 TIBIA FIBULA LEFT [facility] Department of Radiology [address] [place] [id number] ======== Patient Name: MYRANDA YANES : 1940 Sex: F Age: Race: White Pt. Location: [id number] Patient Status: I Ordered Date: 11/23/2021 6:45:00 [...] provided. Electronically signed: Dread Wills. Transcribed by: [email or web address], User Resident: Electronically Signed by: DREAD WILLS @ 11/24/2021 02:58 PM Normal [facility] Comment on above: Order Comment: IM ro dding left tibia BASIC METABOLIC PANELon 10-31 Calcium [Mass/Vol] 8.3 mg/dL Low 8.6-10.3 [facility] Comment on above: Order Comment: No: D o not add to previous draw Performed By: #### 4 1000, 82019, 58861 ####[facility] [place] [address], [facility] Chloride [Moles/Vol] 106 mmol/L Normal 98-107 [facility] Comment on above: Order Comment: No: D o not add to previous draw Performed By: #### 4 1000, 13676, 26218 ####[facility] [place] [address], [place] CO2 [Moles/Vol] 27 mmol/L Normal 21-31 [facility] Comment on above: Order Comment: No: D o not add to previous draw Performed By: #### 4 1000, 27549, 19736 ####[facility] [id number], [place] Creatinine [Mass/Vol] 0.88 mg/dL Normal 0.60-1.20 [facility] Comment on above: Order Comment: No: D o not add to previous draw Performed By: #### 4 1000, 78917, 90808 ####[facility] [place] [address], [place] GFR/1.73 sq M.predicted among blacks MDRD (S/P/Bld) [Vol rate/Area] mL/min/{1.73_m2} Normal >60 [facility] Comment on above: Order Comment: No: D o not add to previous draw Result Comment: Calc ulation may not be valid for patients over 70 years Performed By: #### 4 999, 70244, 04262 ####[facility] [place] [address], [place] GFR/1.73 sq M.predicted among non-blacks MDRD (S/P/Bld) [Vol rate/Area] mL/min/{1.73_m2} Normal >60 [facility] Comment on above: Order Comment: No: D o not add to previous draw Result Comment: Calc ulation may not be valid for patients over 70 years Performed By: #### 4 999, 33279, 59796 ####[facility] [facility] [place] [place] [address], [place] Glucose [Mass/Vol] 103 mg/dL High 70-100 [facility] Comment on above: Order Comment: No: D o not add to previous draw Performed By: #### 4 999, 82863, 77737 ####[facility] [place] [address], [place] Potassium [Moles/Vol] 4.4 mmol/L Normal 3.5-5.1 [facility] Comment on above: Order Comment: No: D o not add to previous draw Performed By: #### 4 999, 08904, 39973 ####[facility] [place] [address], [place] Sodium [Moles/Vol] 139 mmol/L Normal 136-145 [facility] Comment on above: Order Comment: No: D o not add to previous draw Performed By: #### 4 999, 48303, 57318 ####[facility] [place] [address], [facility] Urea nitrogen [Mass/Vol] 30 mg/dL High 7-25 [facility] Comment on above: Order Comment: No: D o not add to previous draw Performed By: #### 4 1000, 95441, 50138 ####[facility] [place] [address], [facility] CBC COMPLETE BLOOD COUNTon 0 - Erythrocyte distribution width (RBC) [Ratio] 13.8 % Normal 11.5-15.0 [facility] Comment on above: Order Comment: No: D o not add to previous draw Performed By: #### 5 0608 #### [facility] [address] [place] [address], [facility] Hematocrit (Bld) [Volume fraction] 27.9 % Low 36.0-45.0 [facility] Comment on above: Order Comment: No: D o not add to previous draw Performed By: #### 5 0608 #### [facility] [address] [place] [address], [facility] Hemoglobin (Bld) [Mass/Vol] 8.7 g/dL Low 12.0-15.0 [facility] Comment on above: Order Comment: No: D o not add to previous draw Performed By: #### 5 0608 #### [facility] [address] [place] [address], [facility] MCH (RBC) [Entitic mass] 30.7 pg Normal 27.0-33.0 [facility] Comment on above: Order Comment: No: D o not add to previous draw Performed By: #### 5 0608 #### [facility] [address] [place] [address], [facility] MCHC (RBC) [Mass/Vol] 31.2 g/dL Low 32.0-35.0 [facility] Comment on above: Order Comment: No: D o not add to previous draw Performed By: #### 5 0608 #### [facility] [address] [place] [address], [facility] MCV (RBC) [Entitic vol] 98.6 fL High 82.0-98.0 [facility] Comment on above: Order Comment: No: D o not add to previous draw Performed By: #### 5 0608 #### [facility] [address] [facility] [place] [address], [facility] Nucleated RBC/100 WBC (Bld) [Ratio] 0 % Normal 0-0 [facility] Comment on above: Order Comment: No: D o not add to previous draw Performed By: #### 5 0608 #### [facility] [address] [facility] [address], [facility] PLAT CNT 196 10*3/uL Normal 150-400 The [facility] Comment on above: Order Comment: No: D o not add to previous draw Performed By: #### 5 0608 #### [facility] [address] [facility] [place] [address], [facility] RBC (Bld) [#/Vol] 2.83 10*6/uL Low 3.80-5.00 [facility] Comment on above: Order Comment: No: D o not add to previous draw Performed By: #### 5 0608 #### [facility] [address] [facility] [place] [place] [address], [facility] WBC (Bld) [#/Vol] 9.05 10*3/uL Normal 4.00-10.60 [facility] Comment on above: Order Comment: No: D o not add to previous draw Performed By: #### 5 0608 #### [facility] [address] [place] [address], [facility] MAGNESIUM BLOODon 11-22-2021 Magnesium [Mass/Vol] 2.0 mg/dL Normal 1.9-2.7 [facility] Comment on above: Order Comment: No: D o not add to previous draw Performed By: #### 4 1000, 03558, 62942 ####[facility] [place] [address], [facility] PHOSPHORUS BLOODon 2 Phosphate [Mass/Vol] 3.1 mg/dL Normal 2.5-5.0 [facility] Comment on above: Order Comment: No: D o not add to previous draw Performed By: #### 4 1000, 43327, 96509 ####[facility] [place] [address], [facility] URINALYSIS REFLEXon 11-23-19 22 Appearance (U) SL CLOUDY Abnormal CLEAR The [facility] Comment on above: Order Comment: No: D o not add to previous drawCriteria for reflexing a culture was not met. Please call the lab [id number] within 24 hours of collection time if culture is needed Performed By: #### 3 2043 #### [facility] [address] [place] [address], [facility] Bilirubin Ql (U) Negative Normal NEGATIVE The [facility] Comment on above: Order Comment: No: D o not add to previous drawCriteria for reflexing a culture was not met. Please call the lab [id number] within 24 hours of collection time if culture is needed Performed By: #### 3 2043 #### [facility] [address] [place] [address], [facility] Color (U) YELLOW Normal YELLOW [facility] Comment on above: Order Comment: No: D o not add to previous drawCriteria for reflexing a culture was not met. Please call the lab [id number] within 24 hours of collection time if culture is needed Performed By: #### 3 2043 #### [facility] [address] [place] [address], [place] EPIS NONE SEEN Normal FEW,OCC,NONE SEEN [facility] Comment on above: Order Comment: No: D o not add to previous drawCriteria for reflexing a culture was not met. Please call the lab [id number] within 24 hours of collection time if culture is needed Performed By: #### 3 2043 #### [facility] [address] [place] [address], [facility] Glucose Ql (U) Negative Normal NEGATIVE The [facility] Comment on above: Order Comment: No: D o not add to previous drawCriteria for reflexing a culture was not met. Please call the lab [id number] within 24 hours of collection time if culture is needed Performed By: #### 3 2043 #### [facility] [address] [place] [address], [facility] Hemoglobin Ql (U) MODERATE Abnormal NEGATIVE The [facility] Comment on above: Order Comment: No: D o not add to previous drawCriteria for reflexing a culture was not met. Please call the lab [id number] within 24 hours of collection time if culture is needed Performed By: #### 3 2043 #### [facility] [address] [place] [address], [facility] KETONE Negative Normal NEGATIVE [facility] Comment on above: Order Comment: No: D o not add to previous drawCriteria for reflexing a culture was not met. Please call the lab [id number] within 24 hours of collection time if culture is needed Performed By: #### 3 2043 #### [facility] [address] [place] [address], [facility] LEUK BEV Negative Normal NEGATIVE [facility] Comment on above: Order Comment: No: D o not add to previous drawCriteria for reflexing a culture was not met. Please call the lab [id number] within 24 hours of collection time if culture is needed Performed By: #### 3 2043 #### [facility] [address] [place] [address], [place] MUCUS THREADS MOD Abnormal NONE SEEN The [facility] Comment on above: Order Comment: No: D o not add to previous drawCriteria for reflexing a culture was not met. Please call the lab [id number] within 24 hours of collection time if culture is needed Performed By: #### 3 2043 #### [facility] [address] [facility] [place] [place] [address], [facility] Nitrite Ql (U) Positive Abnormal NEGATIVE The [facility] Comment on above: Order Comment: No: D o not add to previous drawCriteria for reflexing a culture was not met. Please call the lab [id number] within 24 hours of collection time if culture is needed Performed By: #### 3 2043 #### [facility] [address] [facility] [place] [address], [facility] pH (U) 5.0 [pH] Normal 5.0-8.0 [facility] Comment on above: Order Comment: No: D o not add to previous drawCriteria for reflexing a culture was not met. Please call the lab [id number] within 24 hours of collection time if culture is needed Performed By: #### 3 2043 #### [facility] [address] [place] [address], [facility] Protein Ql (U) Negative Normal NEGATIVE The [facility] Comment on above: Order Comment: No: D o not add to previous drawCriteria for reflexing a culture was not met. Please call the lab [id number] within 24 hours of collection time if culture is needed Performed By: #### 3 2043 #### [facility] [address] [facility] [place] [address], [facility] RBC 0-2 Abnormal NONE SEEN The [facility] Comment on above: Order Comment: No: D o not add to previous drawCriteria for reflexing a culture was not met. Please call the lab [id number] within 24 hours of collection time if culture is needed Performed By: #### 3 2043 #### [facility] [address] [place] [place] [id number], [facility] SPEC GRAV 1.019 Normal 1.015-1.020 The [facility] Comment on above: Order Comment: No: D o not add to previous drawCriteria for reflexing a culture was not met. Please call the lab [id number] within 24 hours of collection time if culture is needed Performed By: #### 3 4 #### [facility] [address] [place] [address], [facility] WBC UA 0-2 Abnormal NONE SEEN The [facility] Comment on above: Order Comment: No: D o not add to previous drawCriteria for reflexing a culture was not met. Please call the lab [id number] within 24 hours of collection time if culture is needed Performed By: #### 3 4 #### [facility] [address] [facility]. [address] APTTon 11-21-2021 aPTT Coag (Bld) [Time] 28.9 s Normal 25.0-35.0 [facility] Comment on above: Result Comment: ALL [...] PURPOSE. Performed By: #### 5 0608 #### [facility] [address] CBC AUTO DIFFon 11-21-2021 BASO # 0.0 103/ul Normal 0.0-0.1 The [facility] Comment on above: Performed By: #### C BC ####[facility] [address] [place], [place] [address]Dr. Arnoldo Taylor Basophils/100 WBC (Bld) 0.2 % Normal 0.2-2.0 [facility] Comment on above: Performed By: #### C BC ####[facility] [address] [place] [address]Dr. Yilan Taylor EO # 0.2 103/ul Normal 0.0-0.7 [facility] Comment on above: Performed By: #### C BC ####[facility] A[address] [place] [address]Dr. Arnoldo Taylor Eosinophils/100 WBC (Bld) 1.1 % Normal 0.9-7.0 [facility] Comment on above: Performed By: #### C BC ####[facility] [address] [place], [place] [address]Dr. Arnoldo Taylor Erythrocyte distribution width (RBC) [Ratio] 13.8 % Normal 11.0-15.0 [facility] Comment on above: Performed By: #### C BC ####[facility] [address] [place], [place] [address]Dr. Arnoldo Taylor Hematocrit (Bld) [Volume fraction] 32.1 % Critically low 36.0-48.0 [facility] Comment on above: Performed By: #### C BC ####[facility] [address] [place], [place] [address]Dr. Arnoldo Taylor Hemoglobin (Bld) [Mass/Vol] 10.2 g/dL Critically low 12.0-16.0 The [facility] Comment on above: Performed By: #### C BC ####[facility] [address]whuntvc[address] [place], [place] [address]Dr. Arnoldo Taylor IG # 0.08 10e3/ul Critically high 0.00-0.03 [facility] Comment on above: Performed By: #### C BC ####[facility] [address] [place] [address]Dr. Arnoldo Taylor IG % 0.6 % Critically high 0.0-0.5 The [facility] Comment on above: Performed By: #### C BC ####[facility] [address] [place], [place] [address]Dr. Arnoldo Taylor LYMPH # 1.1 103/ul Critically low 1.2-3.8 The [facility] Comment on above: Performed By: #### C BC ####[facility] [address] [place], [place] [address]Dr. Arnoldo Taylor Lymphocytes/100 WBC (Bld) 8.0 % Critically low 20.5-60.0 The [facility] Comment on above: Performed By: #### C BC ####[facility] [address] [place] [address]Dr. Arnoldo Taylor MANUAL DIFF REQ NO Normal [facility] Comment on above: Performed By: #### C BC ####[facility] [address]ocs[address] [place] [address]Dr. Arnoldo Taylor MCH (RBC) [Entitic mass] 30.7 pg Normal 26.7-34.0 [facility] Comment on above: Performed By: #### C BC ####[facility] [address]msk[address] [place], [place] [address]Dr. Arnoldo Taylor MCHC (RBC) [Mass/Vol] 31.8 g/dL Normal 29.9-35.2 [facility] Comment on above: Performed By: #### C BC ####[facility] [address] [place], [place] [address]Dr. Arnoldo Taylor MCV (RBC) [Entitic vol] 96.7 fL Normal 81.0-99.0 [facility] Comment on above: Performed By: #### C BC ####[facility] [address]oc[address] [place] [address]Dr. Arnoldo Brandon MONO # 1.2 103/ul Critically high 0.3-0.8 [facility] Comment on above: Performed By: #### C BC ####[facility] [address]av[address] [place] [address]Dr. Arnoldo Taylor Monocytes/100 WBC (Bld) 8.6 % Normal 1.7-12.0 [facility] Comment on above: Performed By: #### C BC ####[facility] Diydwyozlw[address] [place], [place] [address]Dr. Lynettesujata Taylor NEUT # 10.9 103/ul Critically high 1.4-6.5 The [facility] Comment on above: Performed By: #### C BC ####[facility] M[address] [place], [place] [address]Dr. Arnoldo Taylor Neutrophils/100 WBC (Bld) 81.5 % Critically high 43.0-75.0 [facility] Comment on above: Performed By: #### C BC ####[facility] [address] [place], [place] [address]Rt. Arnoldo Taylor Platelet mean volume (Bld) [Entitic vol] 8.8 fL Critically low 9.5-13.5 The [facility] Comment on above: Performed By: #### C BC ####[facility] [address]16[address] [place], [place] [address]Yz. Arnoldo Taylor PLT 242 103/ul Normal 150-450 [facility] Comment on above: Performed By: #### C BC ####[facility] T[address]vf90[address] [place], [place] [address]Cp. Arnoldo Taylor RBC 3.32 106/ul Critically low 4.20-5.40 [facility] Comment on above: Performed By: #### C BC ####[facility] Cl[address]vdigle[address] [place], [place] [address]Hn. Arnoldo Taylor WBC 13.4 103/ul Critically high 4.0-11.0 The [facility] Comment on above: Performed By: #### C BC ####[facility] [address] [place], [place] [address]Yx. Arnoldo Taylor CBC W/DIFFon 11-21-2021 ABS IMM GRANS 0.1 10*3/uL Normal 0.0-0.2 [facility] Comment on above: Performed By: #### 5 0608 #### [facility] [address] [place] [address], [facility] ABS NEUTROPHILS 9.6 10*3/uL High 1.6-7.6 [facility] Comment on above: Performed By: #### 5 0608 #### [facility] [address] [place] [address], [facility] Basophils (Bld) [#/Vol] 0.0 10*3/uL Normal 0.0-0.2 [facility] Comment on above: Performed By: #### 5 0608 #### [facility] [address] [place] [address], [facility] Basophils/100 WBC (Bld) 0.2 % Normal 0.0-1.0 [facility] Comment on above: Performed By: #### 5 0608 #### [facility] [address] [place] [address], [facility] Eosinophils (Bld) [#/Vol] 0.1 10*3/uL Normal 0.0-0.5 [facility] Comment on above: Performed By: #### 5 0608 #### [facility] [address] [place] [address], [facility] Eosinophils/100 WBC (Bld) 0.5 % Normal 0.0-6.0 [facility] Comment on above: Performed By: #### 5 0608 #### [facility] [address] [facility] Erythrocyte distribution width (RBC) [Ratio] 13.8 % Normal 11.5-15.0 [facility] Comment on above: Performed By: #### 5 0608 #### [facility] [address] [place] [address], [facility] Hematocrit (Bld) [Volume fraction] 31.8 % Low 36.0-45.0 [facility] Comment on above: Performed By: #### 5 0608 #### [facility] [address] [facility] Hemoglobin (Bld) [Mass/Vol] 9.9 g/dL Low 12.0-15.0 [facility] Comment on above: Performed By: #### 5 0608 #### [facility] [address] [facility] [place] [address], [facility] IMMATURE GRANS 0.4 % Normal 0.0-1.0 [facility] Comment on above: Performed By: #### 5 0608 #### [facility] [address] [place] [address], [facility] Lymphocytes (Bld) [#/Vol] 1.9 10*3/uL Normal 1.2-4.0 [facility] Comment on above: Performed By: #### 5 0608 #### [facility] [address] [facility] [place] [address], [facility] Lymphocytes/100 WBC (Bld) 14.7 % Low 20.0-45.0 [facility] Comment on above: Performed By: #### 5 0608 #### [facility] [address] [facility] [place] [address], [facility] MCH (RBC) [Entitic mass] 30.5 pg Normal 27.0-33.0 [facility] Comment on above: Performed By: #### 5 0608 #### [facility] [address] [facility] MCHC (RBC) [Mass/Vol] 31.1 g/dL Low 32.0-35.0 [facility] Comment on above: Performed By: #### 5 0608 #### [facility] [address] [place] [address], [facility] MCV (RBC) [Entitic vol] 97.8 fL Normal 82.0-98.0 [facility] Comment on above: Performed By: #### 5 0608 #### [facility] [address] [facility] [place] [address], [facility] Monocytes (Bld) [#/Vol] 1.5 10*3/uL High 0.1-1.0 [facility] Comment on above: Performed By: #### 5 0608 #### [facility] [address] [place] [address], [facility] MONOS 11.2 % Normal 5.0-12.0 [facility] Comment on above: Performed By: #### 5 0608 #### [facility] [address] [place] [address], [facility] Neutrophils/100 WBC (Bld) 73.0 % High 40.0-72.0 [facility] Comment on above: Performed By: #### 5 0608 #### [facility] [address] [facility] [place] [place] [address], [facility] Nucleated RBC/100 WBC (Bld) [Ratio] 0 % Normal 0-0 [facility] Comment on above: Performed By: #### 5 0608 #### [facility] [address] [facility] [place] [address], [facility] PLAT CNT 261 10*3/uL Normal 150-400 [facility] Comment on above: Performed By: #### 5 0608 #### [facility] [address] [facility]. [address] RBC (Bld) [#/Vol] 3.25 10*6/uL Low 3.80-5.00 [facility] Comment on above: Performed By: #### 5 0608 #### [facility] [address] [facility]. [address] WBC (Bld) [#/Vol] 13.09 10*3/uL High 4.00-10.60 [facility] Comment on above: Performed By: #### 5 0608 #### [facility] [address] COMP METABOLIC PANELon 11-21 Albumin [Mass/Vol] 3.5 g/dL Normal 3.5-5.7 [facility] Comment on above: Performed By: #### 0 0121, [id number] ####[facility] [facility].[address] ALKALINE PHOSPH 138 IU/L High 34-104 [facility] Comment on above: Performed By: #### 0 0121, 05036 ####[facility] ALT [Catalytic activity/Vol] 22 U/L Normal 7-52 [facility] Comment on above: Performed By: #### 0 0121, 02753 ####[facility] [place] [address], [facility] AST [Catalytic activity/Vol] 21 U/L Normal 13-39 [facility] Comment on above: Performed By: #### 0 0121, 90435 ####[facility] [place] [address], [place] Bilirubin [Mass/Vol] 0.9 mg/dL Normal 0.3-1.0 [facility] Comment on above: Performed By: #### 0 0121, 65388 ####[facility] [place] [address], [place] Calcium [Mass/Vol] 8.8 mg/dL Normal 8.6-10.3 [facility] Comment on above: Performed By: #### 0 012, 31152 ####[facility] [place] [address], [place] Chloride [Moles/Vol] 105 mmol/L Normal 98-107 [facility] Comment on above: Performed By: #### 0 0121, 17711 ####[facility] [place] [address], [place] CO2 [Moles/Vol] 28 mmol/L Normal 21-31 [facility] Comment on above: Performed By: #### 0 0121, 83762 ####[facility] [place] [address], [place] Creatinine [Mass/Vol] 0.94 mg/dL Normal 0.60-1.20 [facility] Comment on above: Performed By: #### 0 0121, 85944 ####[facility] [place] [address], [place] eGFR- non- 57 ml/min/1.73sq m Abnormal >60 [facility] Comment on above: Result Comment: Calc ulation may not be valid for patients over 70 years Performed By: #### 0 0121, 68775 ####[facility] [place] [address], [place] GFR/1.73 sq M.predicted among blacks MDRD (S/P/Bld) [Vol rate/Area] mL/min/{1.73_m2} Normal >60 [facility] Comment on above: Result Comment: Calc ulation may not be valid for patients over 70 years Performed By: #### 0 0121, 49409 ####[facility] [place] [address], [place] Glucose [Mass/Vol] 106 mg/dL High 70-100 [facility] Comment on above: Performed By: #### 0 0121, 67232 ####[facility] [place] [address], [place] Potassium [Moles/Vol] 4.9 mmol/L Normal 3.5-5.1 [facility] Comment on above: Performed By: #### 0 0121, 44631 ####[facility] [place] [address], [place] Protein [Mass/Vol] 6.6 g/dL Normal 6.0-8.3 [facility] Comment on above: Performed By: #### 0 0121, 09521 ####[facility] [place] [address], [place] Sodium [Moles/Vol] 140 mmol/L Normal 136-145 [facility] Comment on above: Performed By: #### 0 0121, 69167 ####[facility] [place] [address], [place] Urea nitrogen [Mass/Vol] 31 mg/dL High 7-25 [facility] Comment on above: Performed By: #### 0 0121, 47477 ####[facility] CSPINE WO CONon CT CSPINE WO CON Normal [facility] CT LOWER EXTREMITY WO CONTRA ST LEFTon 11-21-2021 CT LOWER EXTREMITY WO CONTRAST LEFT [facility] Department of Radiology [address] [place] [id number] ======== Patient Name: MYRANDA YANES : 1940 Sex: F Age: Race: White Pt. Location: [facility] Patient Status: E Ordered Date: [...] swelling. Electronically signed: Liane Wright. Transcribed by: [id number], User Resident: Electronically Signed by: LIANE WRIGHT @ 11/21/2021 04:08 PM Normal [facility] Comment on above: Order Comment: Other , please include left ankle joint Covid-19 PCR (CVDTBH)on 10-31 SARS-CoV-2 (COVID-19) RNA JAMMIE+probe Ql (Unsp spec) Not detected Normal NOT DETECTED [facility] Comment on above: Result Comment: When diagnostic [...] for this test is supported by the [place] of Health and Human Service's declaration that [...] be used). Performed By: #### C VDTB ####[facility] [address] [place] [address]Dr. Lynettesujata Taylor ER URINE PROFILEon 2 Bilirubin Ql (U) Negative Normal NEGATIVE [facility] Comment on above: Performed By: #### U MICRO, ERUR ####[facility] Cdrrkstsvn[address] [place], [place] [address]Dr. Lynettesujata Taylor Clarity (U) CLEAR Normal CLEAR [facility] Comment on above: Performed By: #### U MICRO, ERUR ####[facility] B[address]wzimqut[address] [place], [place] [address]Dr. Lynettesujata Taylor Color (U) LT. YELLOW Normal YELLOW [facility] Comment on above: Performed By: #### U MICRO, ERUR ####[facility] Dnumhuctpi[address] [place], [place] [address]Dr. Arnoldo Taylor ERUAHD A micrscopic examination will be performed if indicated. Normal [facility] Comment on above: Performed By: #### U MICRO, ERUR ####[facility] Zwctxmfmpm[address] [place], [place] [address]Dr. Lynettelan Taylor Glucose Ql (U) Negative Normal NEGATIVE The [facility] Comment on above: Performed By: #### U MICRO, ERUR ####[facility] Voakevxzzr[address] [place], [place] [address]Dr. Yilan Taylor Hemoglobin Ql (U) SMALL Abnormal NEGATIVE [facility] Comment on above: Performed By: #### U MICRO, ERUR ####[facility] Gedcitdbie[address] [place], [place] [address]Dr. Lynettelan Taylor Ketones Ql (U) Negative Normal NEGATIVE The [facility] Comment on above: Performed By: #### U MICRO, ERUR ####[facility] Qkktrqqwcs9[address] [place], [place] [address]Dr. Yilan Taylor LEUKOCYTES Negative Normal NEGATIVE [facility] Comment on above: Performed By: #### U MICRO, ERUR ####[facility] Vqqlmwqkht[address] [place] [address]Dr. Arnoldo Brandon Nitrite Ql (U) Negative Normal NEGATIVE The [facility] Comment on above: Performed By: #### U MICRO, ERUR ####[facility] Qvwlwufnbx[address] [place] [address]Dr. Arnoldo Taylor pH (U) 6.0 [pH] Normal 5-9 [facility] Comment on above: Performed By: #### U MICRO, ERUR ####[facility] Trzhmnjkrx[address] [place] [address]Dr. Arnoldo Taylor SPEC GRAVITY 1.010 Normal 1.005-<=1.025 [facility] Comment on above: Performed By: #### U MICRO, ERUR ####[facility] [address] [place] [address]Dr. Arnoldo Taylor UA PROTEIN Negative Normal NEGATIVE/ TRACE [facility] Comment on above: Performed By: #### U MICRO, ERUR ####[facility] Vjoingvnea[address] [place] [address]Dr. Arnoldo Taylor UR MICRO IND INDICATED Normal [facility] Comment on above: Performed By: #### U MICRO, ERUR ####[facility] Drgwonfdez[address] [place] [address]Dr. Arnoldo Taylor Urobilinogen Qn (U) 0.2 {Adrienne'U}/dL Normal 0.2 - 1. 0 [facility] Comment on above: Performed By: #### U MICRO, ERUR ####[facility] Qekxkhncbf[address] [place] [address]Dr. Arnoldo Taylor POC SARS COV2 IDon 2 SARS-CoV-2 (COVID-19) RNA JAMMIE+probe Ql (Unsp spec) Negative Normal NEGATIVE [facility] Comment on above: Result Comment: ID [...] Accreditation. Performed By: #### 3 1595 #### [address] PORTABLE TIBIA FIBULA LEFTon 11-21-2021 PORTABLE TIBIA FIBULA LEFT [facility] Department of Radiology [address] [place] [id number] ======== Patient Name: MYRANDA YANES : 1940 Sex: F Age: Race: White Pt. Location: [facility] Patient Status: E Ordered Date: [...] fibula. Electronically signed: Liane Wright. Transcribed by: [email or web address], User Resident: Electronically Signed by: LIANE WRIGHT @ 11/21/2021 03:53 PM Normal [facility] Comment on above: Order Comment: Crite brittaney for reflexing a culture was not met. Please call the lab at [phone] within 24 hours of collection time if culture is needed PROF CHEM 8 (BAS METB)on Anion gap [Moles/Vol] 11.8 mmol/L Normal [facility] Comment on above: Performed By: #### B MP ####[facility] Rvrjcdcwlt[address] [place] [address]Dr. Arnoldo Taylor Calcium [Mass/Vol] 8.8 mg/dL Normal 8.5-10.1 [facility] Comment on above: Performed By: #### B MP ####[facility] Worutrojor[address] [place] [address]Dr. Yilan Taylor Chloride [Moles/Vol] 105 mmol/L Normal 98-107 [facility] Comment on above: Performed By: #### B MP ####[facility] Mohaafivbe[address] [place] [address]Dr. Yilan Taylor CO2 [Moles/Vol] 27.3 mmol/L Normal 21.0-32.0 [facility] Comment on above: Performed By: #### B MP ####[facility] Xuj[address]imwvyo[address] [place] [address]Dr. Arnoldo Tayolr Creatinine [Mass/Vol] 1.07 mg/dL Critically high 0.55-1.02 [facility] Comment on above: Performed By: #### B MP ####[facility] [address]bwttz[address] [place] [address]Dr. Arnoldo Taylor EGFR-AF TRISTANIAN =60 Normal >=60 [facility] Comment on above: Performed By: #### B MP ####[facility] Fkthnpryyz[address] [place], [place] [address]Dr. Arnoldo Taylor EGFR-NON AF TRISTANIAN 49 mL/min/1.73m2 Critically low >=60 [facility] Comment on above: Performed By: #### B MP ####[facility] Begivothly[address] [place], [place] [address]Dr. Arnoldo Taylor Glucose [Mass/Vol] 112 mg/dL Critically high 74-106 [facility] Comment on above: Performed By: #### B MP ####[facility] Oktconrhru[address] [place], [place] [address]Dr. Arnoldo Taylor Potassium [Moles/Vol] 4.1 mmol/L Normal 3.5-5.1 [facility] Comment on above: Performed By: #### B MP ####[facility] Cfvgjmvmln25[address] [place], [place] [address]Dr. Arnoldo Taylor Sodium [Moles/Vol] 140 mmol/L Normal 136-145 [facility] Comment on above: Performed By: #### B MP ####[facility] Tichokvgph[address] [place], [place] [address]Dr. Arnoldo Taylor Urea nitrogen [Mass/Vol] 29.0 mg/dL Critically high 7.0-18.0 [facility] Comment on above: Performed By: #### B MP ####[facility] Uorpzmjuel[address] [place], [place] [address]Dr. Arnoldo Taylor Urea nitrogen/Creatinine [Mass ratio] 27.1 mg/mg Normal [facility] Comment on above: Performed By: #### B MP ####[facility] Ihtswxlckq[address] [place], [place] [address]DrTye Taylor PROTHROMBIN TIMEon 2 INR Coag (PPP) [Relative time] 1.07 {INR} Normal 0.91-1.16 [facility] Comment on above: Result Comment: ACCC [...] 1995;[id number]. Performed By: #### 5 0608 #### [address] PT Coag (PPP) [Time] 13.9 s Normal 12.3-14.8 [facility] Comment on above: Result Comment: ALL RESULTS MUST BE INTERPRETED WITH RESPECT TO BLOOD DRAWING ARTIFACT OR DILUTION ERROR OF ANTICOAGULANT AT THE TIME OF SAMPLING. Performed By: #### 5 0608 #### [address] TIBIA FIBULA LEFTon 11-22-19 22 TIBIA FIBULA LEFT [facility] Department of Radiology [address] [place] [id number] ======== Patient Name: MYRANDA YANES : 1940 Sex: F Age: Race: White Pt. Location: [facility] Patient Status: E Ordered Date: [...] fibula. Electronically signed: Liane Wright. Transcribed by: [email or web address], User Resident: Electronically Signed by: LIANE WRIGHT @ 11/21/2021 03:50 PM Normal [facility] Comment on above: Order Comment: Crite brittaney for reflexing a culture was not met. Please call the lab at [phone] within 24 hours of collection time if culture is needed TROPONIN-Ion 07-23-2022 Troponin I.cardiac [Mass/Vol] 0.01 ng/mL Normal 0.00-0.04 [facility] Comment on above: Result Comment: REFE RENCE RANGES: 0.00 - 0.04 ng/ml NORMAL 0.05 - 0.50 ng/ml INDETERMINATE > 0.50 ng/ml CONSISTENT WITH AN M.I. Performed By: #### 0 0121, 48904 ####[facility] TYPE AND SCREENon 11-21-2021 ABO INTERPRETATION A Normal [facility] Comment on above: Performed By: #### 5 0608 #### [facility] [address] RH INTERPRETATION Positive Normal The [facility] Comment on above: Performed By: #### 5 0608 #### [facility] [address] URINALYSIS REFLEXon 11-22-19 22 Appearance (U) CLEAR Normal CLEAR [facility] Comment on above: Order Comment: Crite brittaney for reflexing a culture was not met. Please call the lab at [phone] within 24 hours of collection time if culture is needed Performed By: #### 3 0965 #### [facility] [address] Bilirubin Ql (U) Negative Normal NEGATIVE [facility] Comment on above: Order Comment: Crite brittaney for reflexing a culture was not met. Please call the lab at [phone] within 24 hours of collection time if culture is needed Performed By: #### 3 0965 #### [facility] [address] Color (U) YELLOW Normal YELLOW [facility] Comment on above: Order Comment: Crite brittaney for reflexing a culture was not met. Please call the lab at [phone] within 24 hours of collection time if culture is needed Performed By: #### 3 0965 #### [facility] [address] [place] [address], [place] EPIS NONE SEEN Normal FEW,OCC,NONE SEEN [facility] Comment on above: Order Comment: Crite brittaney for reflexing a culture was not met. Please call the lab at [phone] within 24 hours of collection time if culture is needed Performed By: #### 3 0965 #### [facility] [address] [place] [address], [place] Glucose Ql (U) Negative Normal NEGATIVE [facility] Comment on above: Order Comment: Crite brittaney for reflexing a culture was not met. Please call the lab at [phone] within 24 hours of collection time if culture is needed Performed By: #### 3 0965 #### [facility] [address] [place] [address], [place] Hemoglobin Ql (U) SMALL Abnormal NEGATIVE The [facility] Comment on above: Order Comment: Crite brittaney for reflexing a culture was not met. Please call the lab at [phone] within 24 hours of collection time if culture is needed Performed By: #### 3 0965 #### [facility] [address] [place] [address], [place] KETONE Negative Normal NEGATIVE [facility] Comment on above: Order Comment: Crite brittaney for reflexing a culture was not met. Please call the lab at [phone] within 24 hours of collection time if culture is needed Performed By: #### 3 0965 #### [facility] [address] [place] [address], [place] LEUK BEV Negative Normal NEGATIVE [facility] Comment on above: Order Comment: Crite brittaney for reflexing a culture was not met. Please call the lab at [phone] within 24 hours of collection time if culture is needed Performed By: #### 3 0965 #### [facility] [address] [place] [address], [place] Nitrite Ql (U) Negative Normal NEGATIVE [facility] Comment on above: Order Comment: Crite brittaney for reflexing a culture was not met. Please call the lab at [phone] within 24 hours of collection time if culture is needed Performed By: #### 3 0965 #### [facility] [address] pH (U) 6.0 [pH] Normal 5.0-8.0 [facility] Comment on above: Order Comment: Crite brittaney for reflexing a culture was not met. Please call the lab at [phone] within 24 hours of collection time if culture is needed Performed By: #### 3 0965 #### [facility] [address] Protein Ql (U) Negative Normal NEGATIVE [facility] Comment on above: Order Comment: Crite brittaney for reflexing a culture was not met. Please call the lab at [phone] within 24 hours of collection time if culture is needed Performed By: #### 3 0965 #### [facility] [address] RBC 3-5 Abnormal NONE SEEN [facility] Comment on above: Order Comment: Crite brittaney for reflexing a culture was not met. Please call the lab at [phone] within 24 hours of collection time if culture is needed Performed By: #### 3 0965 #### [facility] [address] SPEC GRAV 1.011 Low 1.015-1.020 [facility] Comment on above: Order Comment: Crite brittaney for reflexing a culture was not met. Please call the lab at [phone] within 24 hours of collection time if culture is needed Performed By: #### 3 0965 #### [facility] [address] [place] [address], [facility] WBC UA 0-2 Abnormal NONE SEEN [facility] Comment on above: Order Comment: Crite brittaney for reflexing a culture was not met. Please call the lab at [phone] within 24 hours of collection time if culture is needed Performed By: #### 3 0965 #### [facility] [address] [place] [address], [facility] URINE MICROSCOPIC ONLYon BACTERIA NONE SEEN Normal NONE SEEN The [facility] Comment on above: Performed By: #### U MICRO, ERUR ####[facility] [address] [place] [address]Dr. Arnoldo Taylor Bacteria identified Cx Nom (U) NOT INDICATED Normal [facility] Comment on above: Performed By: #### U MICRO, ERUR ####[facility] [address]ts[address] [place] [address]Dr. Arnoldo Taylor CAST NONE SEEN Normal NONE SEEN [facility] Comment on above: Performed By: #### U MICRO, ERUR ####[facility] [address] [place] [address]Dr. Arnoldo Taylor Crystals LM Nom (Urine sed) NONE SEEN Normal NONE SEEN [facility] Comment on above: Performed By: #### U MICRO, ERUR ####[facility] [address] [place] [address]Dr. Arnoldo Taylor Epithelial cells LM Ql (Urine sed) RARE Normal NONE SEEN /RARE [facility] Comment on above: Performed By: #### U MICRO, ERUR ####[facility] [address] [place] [address]Dr. Lynettelan Brandon MUCOUS NONE SEEN Normal NONE SEEN [facility] Comment on above: Performed By: #### U MICRO, ERUR ####[facility] [address]ns[address]kyzu[address] [place] [address]Dr. Arnoldo Taylor RBC 0-2 Normal 0-2 [facility] Comment on above: Performed By: #### U MICRO, ERUR ####[facility] [address] [place] [address]Dr. Arnoldo Taylor WBC NONE SEEN Normal NONE SEEN [facility] Comment on above: Performed By: #### U MICRO, ERUR ####[facility] [id number] [place] [address]Dr. Arnoldo Taylor XR CHEST 1 Von 11-21-2021 XR CHEST 1 V Normal [facility] XR FEMUR LTon 11-21-2021 XR FEMUR LT Normal [facility] XR TIB_FIB LT 2Von 2 XR TIB_FIB LT 2V Normal The [facility] HIP LEFT 1 OR 2 VWS WITH PEL VISon 11-19-2021 HIP LEFT 1 OR 2 VWS WITH PELVIS [facility] Department of Radiology [address] [place] [address] ======== Patient Name: MYRANDA YANES : 1940 Sex: F Age: Race: White Pt. Location: Patient Status: D Ordered Date: 11/19/2021 9:35:00 AM Completed Date: 11/19/2021 09:39 AM Requesting Provider: MASON RUIZ Attending Provider: MASON RUIZ Report Copy To: Signs & Symptoms: Z48.89 Encounter for other specified surgical aftercare I10 History: [place] Comments: Evaluate Exam: HIP LEFT 1 OR [...] displaced. Electronically signed: Liane Wright. Transcribed by: [email or web address], User Resident: Electronically Signed by: LIANE WRIGHT @ 11/22/2021 02:59 PM Normal [facility] Comment on above: Order Comment: Crite brittaney for reflexing a culture was not met. Please call the lab at [phone] within 24 hours of collection time if culture is needed POC SARS COV2 ANTIGEN NEGATI VEon 11-12-2021 POC SARS COV2 ANTIGEN NEG Negative Normal NEGATIVE [facility] Comment on above: Result Comment: Nega [...] antigen from SARS-CoV-2 in direct nasopharyngeal swab (CIRCUIT COURT [employer]GE) specimens from individuals who are suspected of [...] Accreditation. Performed By: #### 3 2044 #### [place] [address] [address] POC GLUCOSE LABon 11-11-2021 Glucose [Mass/Vol] 130 mg/dL High 70-100 The [facility] Comment on above: Performed By: #### 3 1595 #### [facility] [address] [place] [address], [facility] Glucose [Mass/Vol] 125 mg/dL High 70-100 The [facility] Comment on above: Performed By: #### 8 5499 #### [facility] [address] [facility] [place] [address], [facility] CBC W/DIFFon 11-10-2021 ABS IMM GRANS 0.0 10*3/uL Normal 0.0-0.2 The [facility] Comment on above: Order Comment: No: D o not add to previous draw Performed By: #### 5 0608 #### [facility] [address] [facility] [place] [address], [facility] ABS NEUTROPHILS 4.0 10*3/uL Normal 1.6-7.6 The [facility] Comment on above: Order Comment: No: D o not add to previous draw Performed By: #### 5 0608 #### [facility] [address] [facility] [place] [address], [facility] Basophils (Bld) [#/Vol] 0.0 10*3/uL Normal 0.0-0.2 [facility] Comment on above: Order Comment: No: D o not add to previous draw Performed By: #### 5 0608 #### [facility] [address] [facility] [place] [address], [facility] Basophils/100 WBC (Bld) 0.1 % Normal 0.0-1.0 [facility] Comment on above: Order Comment: No: D o not add to previous draw Performed By: #### 5 0608 #### [facility] [address] [facility] [place] [place] [address], [facility] Eosinophils (Bld) [#/Vol] 0.2 10*3/uL Normal 0.0-0.5 [facility] Comment on above: Order Comment: No: D o not add to previous draw Performed By: #### 5 0608 #### [facility] [address] [place] [address], [facility] Eosinophils/100 WBC (Bld) 2.7 % Normal 0.0-6.0 [facility] Comment on above: Order Comment: No: D o not add to previous draw Performed By: #### 5 0608 #### [facility] [address] [place] [address], [facility] Erythrocyte distribution width (RBC) [Ratio] 12.6 % Normal 11.5-15.0 [facility] Comment on above: Order Comment: No: D o not add to previous draw Performed By: #### 5 0608 #### [facility] [address] [facility] [place] [address], [facility] Hematocrit (Bld) [Volume fraction] 23.7 % Low 36.0-45.0 [facility] Comment on above: Order Comment: No: D o not add to previous draw Performed By: #### 5 0608 #### [facility] [address] [facility] [place] [address], [facility] Hemoglobin (Bld) [Mass/Vol] 8.1 g/dL Low 12.0-15.0 [facility] Comment on above: Order Comment: No: D o not add to previous draw Performed By: #### 5 0608 #### [facility] [address] [place] [address], [facility] IMMATURE GRANS 0.4 % Normal 0.0-1.0 The [facility] Comment on above: Order Comment: No: D o not add to previous draw Performed By: #### 5 0608 #### [facility] [address] [place] [id number], [facility] Lymphocytes (Bld) [#/Vol] 2.4 10*3/uL Normal 1.2-4.0 [facility] Comment on above: Order Comment: No: D o not add to previous draw Performed By: #### 5 0608 #### [facility] [address] [facility] [place] [address], [facility] Lymphocytes/100 WBC (Bld) 31.4 % Normal 20.0-45.0 [facility] Comment on above: Order Comment: No: D o not add to previous draw Performed By: #### 5 0608 #### [facility] [address] [place] [address], [facility] MCH (RBC) [Entitic mass] 31.4 pg Normal 27.0-33.0 [facility] Comment on above: Order Comment: No: D o not add to previous draw Performed By: #### 5 0608 #### [facility] [address] MCHC (RBC) [Mass/Vol] 34.2 g/dL Normal 32.0-35.0 [facility] Comment on above: Order Comment: No: D o not add to previous draw Performed By: #### 5 0608 #### [facility] [address] [facility] [place] [place] [address], [facility] MCV (RBC) [Entitic vol] 91.9 fL Normal 82.0-98.0 [facility] Comment on above: Order Comment: No: D o not add to previous draw Performed By: #### 5 0608 #### [facility] [address] [place] [address], [facility] Monocytes (Bld) [#/Vol] 1.1 10*3/uL High 0.1-1.0 [facility] Comment on above: Order Comment: No: D o not add to previous draw Performed By: #### 5 0608 #### [facility] [address] [place] [address], [facility] MONOS 13.5 % High 5.0-12.0 [facility] Comment on above: Order Comment: No: D o not add to previous draw Performed By: #### 5 0608 #### [facility] [address] [place] [id number], [facility] Neutrophils/100 WBC (Bld) 51.9 % Normal 40.0-72.0 [facility] Comment on above: Order Comment: No: D o not add to previous draw Performed By: #### 5 0608 #### [facility] [address] [place] [id number], [facility] Nucleated RBC/100 WBC (Bld) [Ratio] 0 % Normal 0-0 [facility] Comment on above: Order Comment: No: D o not add to previous draw Performed By: #### 5 0608 #### [facility] [address] [place] [id number], [facility] PLAT CNT 131 10*3/uL Low 150-400 The [facility] Comment on above: Order Comment: No: D o not add to previous draw Performed By: #### 5 0608 #### [facility] [address] [facility] [place] [address], [facility] RBC (Bld) [#/Vol] 2.58 10*6/uL Low 3.80-5.00 The [facility] Comment on above: Order Comment: No: D o not add to previous draw Performed By: #### 5 0608 #### [facility] [address] [facility]. [place] [id number], [place] WBC (Bld) [#/Vol] 7.78 10*3/uL Normal 4.00-10.60 [facility] Comment on above: Order Comment: No: D o not add to previous draw Performed By: #### 5 0608 #### [facility] [address] [place] [id number], [facility] POC GLUCOSE LABon 11-10-2021 Glucose [Mass/Vol] 128 mg/dL High 70-100 [facility] Comment on above: Performed By: #### 3 4 #### [facility] [address] [place] [address], [place] Glucose [Mass/Vol] 107 mg/dL High 70-100 [facility] Comment on above: Performed By: #### 3 2043 #### [facility] [address] [place] [address], [place] Glucose [Mass/Vol] 185 mg/dL High 70-100 [facility] Comment on above: Performed By: #### 8 5499 #### [facility] [address] [place] [address], [place] Glucose [Mass/Vol] 111 mg/dL High 70-100 The [facility] Comment on above: Performed By: #### 8 5499 #### [facility] [address] [place] [address], [place] POC GLUCOSE LABon 11-09-2021 Glucose [Mass/Vol] 100 mg/dL Normal 70-100 The [facility] Comment on above: Performed By: #### 3 1595 #### [facility] [address] [place] [address], [place] Glucose [Mass/Vol] 148 mg/dL High 70-100 The [facility] Comment on above: Performed By: #### 3 1595 #### [facility] [address] [place] [address], [place] Glucose [Mass/Vol] 112 mg/dL High 70-100 The [facility] Comment on above: Performed By: #### 3 1595 #### [facility] [address] [place] [address], [place] BASIC METABOLIC PANELon 07- Calcium [Mass/Vol] 7.7 mg/dL Low 8.6-10.3 The [facility] Comment on above: Order Comment: No: D o not add to previous draw Performed By: #### 5 0608 #### [facility] [address] [place] [address], [place] Chloride [Moles/Vol] 105 mmol/L Normal 98-107 [facility] Comment on above: Order Comment: No: D o not add to previous draw Performed By: #### 5 0608 #### [facility] [address] [place] [address], [place] CO2 [Moles/Vol] 24 mmol/L Normal 21-31 The [facility] Comment on above: Order Comment: No: D o not add to previous draw Performed By: #### 5 0608 #### [facility] [address] [place] [address], [place] Creatinine [Mass/Vol] 0.90 mg/dL Normal 0.60-1.20 [facility] Comment on above: Order Comment: No: D o not add to previous draw Performed By: #### 5 0608 #### [facility] [address] [place] [address], [place] GFR/1.73 sq M.predicted among blacks MDRD (S/P/Bld) [Vol rate/Area] mL/min/{1.73_m2} Normal >60 [facility] Comment on above: Order Comment: No: D o not add to previous draw Result Comment: Calc ulation may not be valid for patients over 70 years Performed By: #### 5 0608 #### [facility] [address] [place] [address], [place] GFR/1.73 sq M.predicted among non-blacks MDRD (S/P/Bld) [Vol rate/Area] mL/min/{1.73_m2} Normal >60 [facility] Comment on above: Order Comment: No: D o not add to previous draw Result Comment: Calc ulation may not be valid for patients over 70 years Performed By: #### 5 0608 #### [facility] [address] [place] [address], [facility] Glucose [Mass/Vol] 104 mg/dL High 70-100 The [facility] Comment on above: Order Comment: No: D o not add to previous draw Performed By: #### 5 0608 #### [facility] [address] [place] [address], [facility] Potassium [Moles/Vol] 3.7 mmol/L Normal 3.5-5.1 [facility] Comment on above: Order Comment: No: D o not add to previous draw Performed By: #### 5 0608 #### [facility] [address] [place] [address], [facility] Sodium [Moles/Vol] 137 mmol/L Normal 136-145 The [facility] Comment on above: Order Comment: No: D o not add to previous draw Performed By: #### 5 0608 #### [facility] [address] [place] [address], [facility] Urea nitrogen [Mass/Vol] 26 mg/dL High 7-25 [facility] Comment on above: Order Comment: No: D o not add to previous draw Performed By: #### 5 0608 #### [facility] [address] [place] [address], [facility] CBC W/DIFFon 11-08-2021 ABS IMM GRANS 0.0 10*3/uL Normal 0.0-0.2 The [facility] Comment on above: Order Comment: No: D o not add to previous draw Performed By: #### 5 0103 #### [facility] [address] [place] [address], [facility] ABS NEUTROPHILS 5.0 10*3/uL Normal 1.6-7.6 The [facility] Comment on above: Order Comment: No: D o not add to previous draw Performed By: #### 5 0103 #### [facility] [address] [place] [address], [facility] Basophils (Bld) [#/Vol] 0.0 10*3/uL Normal 0.0-0.2 [facility] Comment on above: Order Comment: No: D o not add to previous draw Performed By: #### 5 0103 #### [facility] [address] [place] [address], [facility] Basophils/100 WBC (Bld) 0.1 % Normal 0.0-1.0 [facility] Comment on above: Order Comment: No: D o not add to previous draw Performed By: #### 5 0103 #### [facility] [address] [place] [address], [facility] Eosinophils (Bld) [#/Vol] 0.2 10*3/uL Normal 0.0-0.5 [facility] Comment on above: Order Comment: No: D o not add to previous draw Performed By: #### 5 0103 #### [facility] [address] [place] [address], [facility] Eosinophils/100 WBC (Bld) 1.7 % Normal 0.0-6.0 [facility] Comment on above: Order Comment: No: D o not add to previous draw Performed By: #### 5 0103 #### [facility] [address] [place] [address], [facility] Erythrocyte distribution width (RBC) [Ratio] 13.5 % Normal 11.5-15.0 [facility] Comment on above: Order Comment: No: D o not add to previous draw Performed By: #### 5 0103 #### [facility] [address] [place] [id number], [facility] Hematocrit (Bld) [Volume fraction] 27.0 % Low 36.0-45.0 [facility] Comment on above: Order Comment: No: D o not add to previous draw Performed By: #### 5 0103 #### [facility] [address] [place] [address], [facility] Hemoglobin (Bld) [Mass/Vol] 8.8 g/dL Low 12.0-15.0 [facility] Comment on above: Order Comment: No: D o not add to previous draw Performed By: #### 5 0103 #### [facility] [address] [place] [address], [facility] IMM PLATELET FRAC 1.1 % Normal 0.8-6.3 The [facility] Comment on above: Order Comment: No: D o not add to previous draw Performed By: #### 5 0103 #### [facility] [address] [facility] [address], [facility] IMMATURE GRANS 0.3 % Normal 0.0-1.0 The [facility] Comment on above: Order Comment: No: D o not add to previous draw Performed By: #### 5 0103 #### [facility] [address] [facility] [address], [facility] Lymphocytes (Bld) [#/Vol] 2.3 10*3/uL Normal 1.2-4.0 [facility] Comment on above: Order Comment: No: D o not add to previous draw Performed By: #### 5 0103 #### [facility] [address] [place] [address], [facility] Lymphocytes/100 WBC (Bld) 26.4 % Normal 20.0-45.0 [facility] Comment on above: Order Comment: No: D o not add to previous draw Performed By: #### 5 0103 #### [facility] [address] [place] [address], [facility] MCH (RBC) [Entitic mass] 31.3 pg Normal 27.0-33.0 [facility] Comment on above: Order Comment: No: D o not add to previous draw Performed By: #### 5 0103 #### [facility] [address] [facility]. [address] MCHC (RBC) [Mass/Vol] 32.6 g/dL Normal 32.0-35.0 [facility] Comment on above: Order Comment: No: D o not add to previous draw Performed By: #### 5 0103 #### [facility] [address] [place] [id number], [facility] MCV (RBC) [Entitic vol] 96.1 fL Normal 82.0-98.0 [facility] Comment on above: Order Comment: No: D o not add to previous draw Performed By: #### 5 0103 #### [facility] [address] [facility] [address], [facility] Monocytes (Bld) [#/Vol] 1.2 10*3/uL High 0.1-1.0 [facility] Comment on above: Order Comment: No: D o not add to previous draw Performed By: #### 5 0103 #### [facility] [address] [facility] [place] [address], [facility] MONOS 13.9 % High 5.0-12.0 [facility] Comment on above: Order Comment: No: D o not add to previous draw Performed By: #### 5 0103 #### [facility] [address] [facility] [address], [facility] Neutrophils/100 WBC (Bld) 57.6 % Normal 40.0-72.0 [facility] Comment on above: Order Comment: No: D o not add to previous draw Performed By: #### 5 0103 #### [facility] [address] [place] [address], [facility] Nucleated RBC/100 WBC (Bld) [Ratio] 0 % Normal 0-0 [facility] Comment on above: Order Comment: No: D o not add to previous draw Performed By: #### 5 0103 #### [facility] [address] [place] [address], [place] PLAT CNT 101 10*3/uL Low 150-400 [facility] Comment on above: Order Comment: No: D o not add to previous draw Performed By: #### 5 0103 #### [facility] [address] [place] [address], [place] RBC (Bld) [#/Vol] 2.81 10*6/uL Low 3.80-5.00 [facility] Comment on above: Order Comment: No: D o not add to previous draw Performed By: #### 5 3 #### [facility] [address] [place] [address], [place] WBC (Bld) [#/Vol] 8.71 10*3/uL Normal 4.00-10.60 [facility] Comment on above: Order Comment: No: D o not add to previous draw Performed By: #### 5 3 #### [facility] [address] [place] [address], [facility] POC GLUCOSE LABon 11-08-2021 Glucose [Mass/Vol] 92 mg/dL Normal 70-100 The [facility] Comment on above: Performed By: #### 8 5499 #### [facility] [address] [place] [address], [place] Glucose [Mass/Vol] 102 mg/dL High 70-100 [facility] Comment on above: Performed By: #### 3 2044 #### [facility] [address] [place] [address], [place] Glucose [Mass/Vol] 108 mg/dL High 70-100 [facility] Comment on above: Performed By: #### 8 5499 #### [facility] [address] [place] [address], [place] Glucose [Mass/Vol] 125 mg/dL High 70-100 [facility] Comment on above: Performed By: #### 8 5499 #### [facility] [address] [place] [address], [facility] BASIC METABOLIC PANELon 07-0 -2021 Calcium [Mass/Vol] 7.6 mg/dL Low 8.6-10.3 [facility] Comment on above: Order Comment: Evalu ate Performed By: #### 4 1000, 55417, 86793 ####[facility] [id number], [place] Chloride [Moles/Vol] 107 mmol/L Normal 98-107 [facility] Comment on above: Order Comment: Evalu ate Performed By: #### 4 1000, 33576, 55125 ####[facility] [place] [address], [place] CO2 [Moles/Vol] 27 mmol/L Normal 21-31 [facility] Comment on above: Order Comment: Evalu ate Performed By: #### 4 1000, 43020, 02505 ####[facility] [place] [address], [place] Creatinine [Mass/Vol] 0.83 mg/dL Normal 0.60-1.20 [facility] Comment on above: Order Comment: Evalu ate Performed By: #### 4 1000, 42368, 76810 ####[facility] [place] [address], [place] GFR/1.73 sq M.predicted among blacks MDRD (S/P/Bld) [Vol rate/Area] mL/min/{1.73_m2} Normal >60 [facility] Comment on above: Order Comment: Evalu ate Result Comment: Calc ulation may not be valid for patients over 70 years Performed By: #### 4 1000, 72583, 32425 ####[facility] [place] [address], [place] GFR/1.73 sq M.predicted among non-blacks MDRD (S/P/Bld) [Vol rate/Area] mL/min/{1.73_m2} Normal >60 [facility] Comment on above: Order Comment: Evalu ate Result Comment: Calc ulation may not be valid for patients over 70 years Performed By: #### 4 1000, 02076, 99293 ####[facility] [place] [address], [place] Glucose [Mass/Vol] 113 mg/dL High 70-100 [facility] Comment on above: Order Comment: Evalu ate Performed By: #### 4 1000, 93930, 48228 ####[facility] [place] [address], [place] Potassium [Moles/Vol] 3.8 mmol/L Normal 3.5-5.1 [facility] Comment on above: Order Comment: Evalu ate Performed By: #### 4 1000, 89761, 72092 ####[facility] [place] [address], [place] Sodium [Moles/Vol] 140 mmol/L Normal 136-145 [facility] Comment on above: Order Comment: Evalu ate Performed By: #### 4 1000, 78356, 94001 ####[facility] [place] [address], [place] Urea nitrogen [Mass/Vol] 24 mg/dL Normal 7-25 [facility] Comment on above: Order Comment: Evalu ate Performed By: #### 4 1000, 29326, 95803 ####[facility] [place] [address], [place] CBC COMPLETE BLOOD COUNTon 0 - Erythrocyte distribution width (RBC) [Ratio] 13.0 % Normal 11.5-15.0 [facility] Comment on above: Order Comment: No: D o not add to previous draw Performed By: #### 5 0608 #### [facility] [address] [place] [address], [place] Hematocrit (Bld) [Volume fraction] 24.0 % Low 36.0-45.0 [facility] Comment on above: Order Comment: No: D o not add to previous draw Performed By: #### 5 0608 #### [facility] [address] [place] [address], [facility] Hemoglobin (Bld) [Mass/Vol] 7.9 g/dL Low 12.0-15.0 [facility] Comment on above: Order Comment: No: D o not add to previous draw Performed By: #### 5 0608 #### [facility] [address] [place] [id number], [facility] MCH (RBC) [Entitic mass] 30.5 pg Normal 27.0-33.0 [facility] Comment on above: Order Comment: No: D o not add to previous draw Performed By: #### 5 0608 #### [facility] [address] [place] [address], [facility] MCHC (RBC) [Mass/Vol] 32.9 g/dL Normal 32.0-35.0 [facility] Comment on above: Order Comment: No: D o not add to previous draw Performed By: #### 5 0608 #### [facility] [address] [place] [address], [facility] MCV (RBC) [Entitic vol] 92.7 fL Normal 82.0-98.0 [facility] Comment on above: Order Comment: No: D o not add to previous draw Performed By: #### 5 0608 #### [facility] [address] [place] [address], [facility] Nucleated RBC/100 WBC (Bld) [Ratio] 0 % Normal 0-0 [facility] Comment on above: Order Comment: No: D o not add to previous draw Performed By: #### 5 0608 #### [facility] [address] [place] [id number], [facility] PLAT CNT 114 10*3/uL Low 150-400 [facility] Comment on above: Order Comment: No: D o not add to previous draw Performed By: #### 5 0608 #### [facility] [address] [place] [address], [facility] RBC (Bld) [#/Vol] 2.59 10*6/uL Low 3.80-5.00 [facility] Comment on above: Order Comment: No: D o not add to previous draw Performed By: #### 5 0608 #### [facility] [address] [place] [id number], [facility] WBC (Bld) [#/Vol] 10.96 10*3/uL High 4.00-10.60 [facility] Comment on above: Order Comment: No: D o not add to previous draw Performed By: #### 5 0608 #### [facility] [address] [place] [id number], [facility] HEMOGLOBINon 11-07-2021 Hemoglobin (Bld) [Mass/Vol] 8.6 g/dL Low 12.0-15.0 [facility] Comment on above: Order Comment: No: D o not add to previous draw Performed By: #### 5 0608 #### [facility] [address] [place] [address], [facility] Hemoglobin (Bld) [Mass/Vol] 7.6 g/dL Low 12.0-15.0 [facility] Comment on above: Order Comment: No: D o not add to previous draw Performed By: #### 5 0608 #### [facility] [address] [place] [id number], [facility] MAGNESIUM BLOODon 11-07-2021 Magnesium [Mass/Vol] 1.6 mg/dL Low 1.9-2.7 [facility] Comment on above: Order Comment: Evalu ate Performed By: #### 4 1000, [id number], 84717 ####[facility] Operative Reporton Operative Report MR#: [id number] I [facility] Pt. Name: Myranda Yanes Room #: [id number] Discharge Date: Birthdate: 1940 OPERATIVE REPORT DATE OF SURGERY: 11/06/2021 SURGEON: Jaskaran Beal M.D. ASSISTANTS: 1. Ankit Tobias M.D. 2. Jus Yancey M.D. 3. Manjinder Davis M.D. PREOPERATIVE DIAGNOSIS: Left intertrochanteric fracture. POSTOPERATIVE DIAGNOSIS: Left intertrochanteric fracture. PROCEDURE: Left cephalomedullary nail. ANESTHESIA: General. BLOOD LOSS: 100 mL. FLUIDS: Per anesthesia records. SPECIMENS: None. COMPLICATIONS: None. IMPLANTS: [place] Gamma3 short cephalomedullary nail 125 degree, 11 [...] suite where she was moved to the [place] table. The patient was put to sleep with general anesthesia. The patient was properly placed and secured onto the [place] table. The patient was prepped and draped in appropriate sterile fashion. Preoperative antibiotics were given per protocol. Reduction was performed by pulling the patient's leg out to length using [place] table, appropriate reduction was achieved and agreed [...] Tobias MD Date Trans: 11/07/2021 03:00 A/lalo [id number] cc: Whitney Goodman M.D. [address] [place] [address] Normal [facility] PHOSPHORUS BLOODon 2 Phosphate [Mass/Vol] 2.6 mg/dL Normal 2.5-5.0 [facility] Comment on above: Order Comment: Evalu ate Performed By: #### 4 1000, 91002, 69670 ####[facility] [facility] [place] [address], [facility] POC GLUCOSE LABon 11-07-2021 Glucose [Mass/Vol] 120 mg/dL High 70-100 The [facility] Comment on above: Performed By: #### 3 2044 #### [facility] [address] [place] [address], [place] Glucose [Mass/Vol] 113 mg/dL High 70-100 The [facility] Comment on above: Performed By: #### 8 5499 #### [facility] [address] [facility] [place] [address], [place] Glucose [Mass/Vol] 134 mg/dL High 70-100 [facility] Comment on above: Performed By: #### 3 4 #### [facility] [address] [place] [address], [place] Glucose [Mass/Vol] 107 mg/dL High 70-100 The [facility] Comment on above: Performed By: #### 3 1595 #### [facility] [address] [place] [address], [place] RBC'S 1 UNITon 11-07-2021 CROSSMATCH INTERP 1 COMP Normal [facility] Comment on above: Order Comment: Evalu ate Performed By: #### 8 6001 ####[facility] [place] [address], [place] PRODUCT CODE 1 E0336 Normal The [facility] Comment on above: Order Comment: Evalu ate Performed By: #### 8 6001 ####[facility] [facility].[address] PRODUCT STATUS 1 PT Normal The [facility] Comment on above: Order Comment: Evalu ate Result Comment: Resu lt changed by IF on 11/07/2021 12:29. The previous value was XM. Result changed by IF on 11/08/2021 00:30. The previous value was IS. Performed By: #### 8 6001 ####[facility] [facility].[address] UNIT ABO 1 A Normal [facility] Comment on above: Order Comment: Evalu ate Performed By: #### 8 6001 ####[facility] [facility].[address] UNIT ID 1 [id number] Normal The [facility] Comment on above: Order Comment: Evalu ate Performed By: #### 8 6001 ####[facility] [facility].[address] UNIT RH 1 Positive Normal [facility] Comment on above: Order Comment: Evalu ate Performed By: #### 8 6001 ####[place] [address] [address] lactate w/reflex #2on 2021 Lactate [Moles/Vol] 2.1 mmol/L Normal .5-2.2 The [facility] Comment on above: Order Comment: Refle xed from accession #[id number] Time:2249RESULT >=2.0; ADDITIONAL LACTATE ORDERED IN 4 HRS PER SEPSIS PROTOCOL Performed By: #### 3 1415 ####[address] lactate w/reflex #3on 2021 Lactate [Moles/Vol] 1.0 mmol/L Normal .5-2.2 [facility] Comment on above: Order Comment: Hemog lobin < 9 gm/dl with known cardiac or cerebrovascular disease Performed By: #### 8 6002 #### [facility] [address] *BLOOD CULTUREon 11-06-2021 *BLOOD CULTURE Clinical Report: (D) Specimen: BLOOD CULTURE Collected: 11/06/2021 18:49 Status: Final Last Updated: 11/12/2021 07:40 (1) Rtwrist 1848 CULT RES (Final) No Growth Day 5 Normal [facility] Comment on above: Order Comment: Rtwri st 1848 Performed By: #### 3 1595 #### [facility] [address] *BLOOD CULTURE Clinical Report: (D) Specimen: BLOOD CULTURE Collected: 11/06/2021 18:49 Status: Final Last Updated: 11/12/2021 07:40 (1) Lwrist 1845 CULT RES (Final) No Growth Day 5 Normal [facility] Comment on above: Order Comment: Lwris t 1845 Performed By: #### 3 1595 #### [facility] [address] *MRSA/MSSA DNA NASALon 11-06 *MRSA/MSSA DNA NASAL Clinical Report: (D) Specimen: NASAL SWAB Collected: 11/06/2021 11:50 Status: Final Last Updated: 11/07/2021 11:10 MSSA DNA (Final) Negative MRSA DNA (Final) Negative Normal [facility] Comment on above: Performed By: #### 3 1595 #### [facility] [address] *URINE CULTUREon 11-06-2021 *URINE CULTURE Clinical Report: (D) Specimen/Source: URINE/CLEAN VOID URINE Collected: 11/06/2021 05:02 Status: Final Last Updated: 11/08/2021 07:31 ISO (Final) Escherichia coli >100,000 Cfu/Ml ISOLATE: Escherichia coli -- GIBSON (mcg/ml) AMP./SULBAC (AMS) 4/2 Susceptible AMPICILLIN (AM) <=4 Susceptible AZTREONAM (AZM) <=2 Susceptible CEFAZOLIN (CZ) <=1 Susceptible CEFTRIAXONE (WEATHER ALGORITHM SCIENTIST) <=1 Susceptible CIPROFLOXACIN (CIP) <=0.25 Susceptible ESBL (-/+) (ESBL) Negative GENTAMICIN (GM) <=2 Susceptible NITROFURANTOIN (FT) <=16 Susceptible PIP/TAZO (TZP) <=2/4 Susceptible TOBRAMYCIN (TOB) <=2 Susceptible TRIMETH/SULFA (SXT) <=0.5/9.5 Susceptible Normal [facility] Comment on above: Performed By: #### 5 0608 #### [address] APTTon 11-06-2021 aPTT Coag (Bld) [Time] 28.7 s Normal 25.0-35.0 [facility] Comment on above: Result Comment: ALL [...] PURPOSE. Performed By: #### 5 0608 #### [address] CBC W/DIFFon 11-06-2021 ABS IMM GRANS 0.0 10*3/uL Normal 0.0-0.2 The [facility] Comment on above: Performed By: #### 5 0608 #### [facility] [address] ABS NEUTROPHILS 7.6 10*3/uL Normal 1.6-7.6 The [facility] Comment on above: Performed By: #### 5 0608 #### [facility] [address] [place] [id number], [facility] Basophils (Bld) [#/Vol] 0.0 10*3/uL Normal 0.0-0.2 [facility] Comment on above: Performed By: #### 5 0608 #### [facility] [address] [place] [address], [facility] Basophils/100 WBC (Bld) 0.1 % Normal 0.0-1.0 [facility] Comment on above: Performed By: #### 5 0608 #### [facility] [address] [place] [address], [facility] Eosinophils (Bld) [#/Vol] 0.0 10*3/uL Normal 0.0-0.5 [facility] Comment on above: Performed By: #### 5 0608 #### [facility] [address] [place] [address], [facility] Eosinophils/100 WBC (Bld) 0.0 % Normal 0.0-6.0 [facility] Comment on above: Performed By: #### 5 0608 #### [facility] [address] [facility]. [address] Erythrocyte distribution width (RBC) [Ratio] 12.7 % Normal 11.5-15.0 [facility] Comment on above: Performed By: #### 5 0608 #### [facility] [address] [place] [address], [facility] Hematocrit (Bld) [Volume fraction] 38.2 % Normal 36.0-45.0 [facility] Comment on above: Performed By: #### 5 0608 #### [facility] [address] [place] [address], [facility] Hemoglobin (Bld) [Mass/Vol] 12.4 g/dL Normal 12.0-15.0 [facility] Comment on above: Performed By: #### 5 0608 #### [facility] [address] IMMATURE GRANS 0.4 % Normal 0.0-1.0 The [facility] nisa [facility] Comment on above: Performed By: #### 5 0608 #### [facility] [address] [place] [address], [facility] Lymphocytes (Bld) [#/Vol] 1.1 10*3/uL Low 1.2-4.0 [facility] Comment on above: Performed By: #### 5 0608 #### [facility] [address] [place] [address], [facility] Lymphocytes/100 WBC (Bld) 11.2 % Low 20.0-45.0 [facility] Comment on above: Performed By: #### 5 0608 #### [facility] [address] [place] [address], [facility] MCH (RBC) [Entitic mass] 30.0 pg Normal 27.0-33.0 [facility] Comment on above: Performed By: #### 5 0608 #### [facility] [address] [place] [address], [facility] MCHC (RBC) [Mass/Vol] 32.5 g/dL Normal 32.0-35.0 [facility] Comment on above: Performed By: #### 5 0608 #### [facility] [address] [place] [address], [facility] MCV (RBC) [Entitic vol] 92.5 fL Normal 82.0-98.0 [facility] Comment on above: Performed By: #### 5 0608 #### [facility] [address] [place] [address], [facility] Monocytes (Bld) [#/Vol] 1.0 10*3/uL Normal 0.1-1.0 [facility] Comment on above: Performed By: #### 5 0608 #### [facility] [address] [place] [id number], [facility] MONOS 9.8 % Normal 5.0-12.0 [facility] Comment on above: Performed By: #### 5 0608 #### [facility] [address] [facility] [place] [address], [facility] Neutrophils/100 WBC (Bld) 78.5 % High 40.0-72.0 [facility] Comment on above: Performed By: #### 5 0608 #### [facility] [address] [place] [address], [facility] Nucleated RBC/100 WBC (Bld) [Ratio] 0 % Normal 0-0 [facility] Comment on above: Performed By: #### 5 0608 #### [facility] [address] [place] [address], [facility] PLAT CNT 149 10*3/uL Low 150-400 [facility] Comment on above: Performed By: #### 5 0608 #### [facility] [address] [place] [address], [facility] RBC (Bld) [#/Vol] 4.13 10*6/uL Normal 3.80-5.00 The [facility] Comment on above: Performed By: #### 5 0608 #### [facility] [address] [place] [address], [facility] WBC (Bld) [#/Vol] 9.65 10*3/uL Normal 4.00-10.60 The [facility] Comment on above: Performed By: #### 5 0608 #### [place] [address], [facility] CHEST 1 [facility] 11-06-2021 CHEST 1 [facility] Department of Radiology [address] [place] [address] [phone] ======== Patient Name: MYRANDA YANES : 1940 Sex: F Age: Race: White Pt. Location: [facility] Patient Status: E Ordered Date: [...] report. Electronically signed: Mandeep Alvarado. Transcribed by: [email or web address], User Resident: CHENTE MONSALVE Electronically Signed by: MANDEEP ALVARADO @ 11/06/2021 06:38 AM I personally read this/these film(s) with this resident Normal [facility] Comment on above: Order Comment: Crite brittaney for reflexing a culture was not met. Please call the lab at [phone] within 24 hours of collection time if culture is needed COMP METABOLIC PANELon 11-06 Albumin [Mass/Vol] 3.9 g/dL Normal 3.5-5.7 The [facility] Comment on above: Performed By: #### 8 6002 #### [facility] [address] [place] [address], [place] ALKALINE PHOSPH 66 IU/L Normal 34-104 The [facility] Comment on above: Performed By: #### 8 6002 #### [facility] [address] [place] [address], [place] ALT [Catalytic activity/Vol] 9 U/L Normal 7-52 [facility] Comment on above: Performed By: #### 8 6002 #### [facility] [address] [place] [address], [place] AST [Catalytic activity/Vol] 18 U/L Normal 13-39 [facility] Comment on above: Performed By: #### 8 6002 #### [facility] [address] [place] [address], [place] Bilirubin [Mass/Vol] 0.8 mg/dL Normal 0.3-1.0 [facility] Comment on above: Performed By: #### 8 6002 #### [facility] [address] [place] [address], [place] Calcium [Mass/Vol] 9.0 mg/dL Normal 8.6-10.3 [facility] Comment on above: Performed By: #### 8 6002 #### [facility] [address] [place] [address], [place] Chloride [Moles/Vol] 102 mmol/L Normal 98-107 [facility] Comment on above: Performed By: #### 8 6002 #### [facility] [address] [place] [address], [place] CO2 [Moles/Vol] 26 mmol/L Normal 21-31 The [facility] Comment on above: Performed By: #### 8 6002 #### [facility] [address] [place] [address], [place] Creatinine [Mass/Vol] 0.91 mg/dL Normal 0.60-1.20 [facility] Comment on above: Performed By: #### 8 6002 #### [facility] [address] [place] [address], [facility] eGFR- non- 59 ml/min/1.73sq m Abnormal >60 The [facility] Comment on above: Result Comment: Calc ulation may not be valid for patients over 70 years Performed By: #### 8 6002 #### [facility] [address] [place] [address], [place] GFR/1.73 sq M.predicted among blacks MDRD (S/P/Bld) [Vol rate/Area] mL/min/{1.73_m2} Normal >60 [facility] Comment on above: Result Comment: Calc ulation may not be valid for patients over 70 years Performed By: #### 8 6002 #### [facility] [address] [place] [address], [place] Glucose [Mass/Vol] 128 mg/dL High 70-100 [facility] Comment on above: Performed By: #### 8 6002 #### [facility] [address] [place] [address], [place] Potassium [Moles/Vol] 3.8 mmol/L Normal 3.5-5.1 [facility] Comment on above: Performed By: #### 8 6002 #### [facility] [address] [place] [address], [place] Protein [Mass/Vol] 7.3 g/dL Normal 6.0-8.3 The [facility] Comment on above: Performed By: #### 8 6002 #### [facility] [address] [place] [address], [place] Sodium [Moles/Vol] 139 mmol/L Normal 136-145 [facility] Comment on above: Performed By: #### 8 6002 #### [address] [place] [address], [facility] Urea nitrogen [Mass/Vol] 20 mg/dL Normal 7-25 [facility] Comment on above: Performed By: #### 8 6002 #### [address] BRAIN WO CONTRASTon 11-06 CT BRAIN WO CONTRAST [facility] Department of Radiology [address] [place] [phone] ======== Patient Name: MYRANDA YANES : 1940 Sex: F Age: Race: White Pt. Location: [facility] Patient Status: E Ordered Date: [...] abnormality. IMPRESSION: No acute intracranial findings. Approved by:Chente Monsalveon11/06/2021 6:04 AM. I, Mandeep Alvarado,have reviewed the image(s) and agree with the findings in this report. Electronically signed: Mandeep Alvarado. Transcribed by: [email or web address], User Resident: CHENTE MONSALVE Electronically Signed by: MANDEEP ALVARADO @ 11/06/2021 06:14 AM I personally read this/these film(s) with this resident Normal [facility] Comment on above: Order Comment: Crite brittaney for reflexing a culture was not met. Please call the lab at [phone] within 24 hours of collection time if culture is needed FEMUR LEFT 2 VWSon 2 FEMUR LEFT 2 VWS [facility] Department of Radiology [address] [place] [phone] ======== Patient Name: MYRANDA YANES : 1940 Sex: F Age: Race: White Pt. Location: [facility] Patient Status: E Ordered Date: [...] report. Electronically signed: Mandeep Alvarado. Transcribed by: [email or web address], User Resident: CHENTE MONSALVE Electronically Signed by: MANDEEP ALVARADO @ 11/06/2021 06:38 AM I personally read this/these film(s) with this resident Normal [facility] Comment on above: Order Comment: FX HIP LEFT 1 OR 2 VWS WITH PEL VISon 11-06-2021 HIP LEFT 1 OR 2 VWS WITH PELVIS [facility] Department of Radiology [address] [place] [phone] ======== Patient Name: MYRANDA YANES : 1940 Sex: F Age: Race: White Pt. Location: [facility] Patient Status: I Ordered Date: [...] report. Electronically signed: Duarte Pollard. Transcribed by: [email or web address], User Resident: Electronically Signed by: DUARTE POLLARD @ 11/06/2021 03:16 PM Normal [facility] Comment on above: Order Comment: Crite brittaney for reflexing a culture was not met. Please call the lab at [phone] within 24 hours of collection time if culture is needed LACTATE BLOODon 11-06-2021 Lactate [Moles/Vol] 3.3 mmol/L High .5-2.2 The [facility] Comment on above: Result Comment: M-CR ITICAL RESULT(S) REVIEWED, CALLED TO AND READ BACK BY HANK KAPOOR RN AT 0711 ON 11.06.21. Performed By: #### 1 0054 ####[place] [address] [place] [address], [facility] LACTATE WITH REFLEXon 2021 Lactate [Moles/Vol] 2.6 mmol/L High .5-2.2 [facility] Comment on above: Order Comment: No: D o not add to previous draw Result Comment: M-HI EVIOUS CRITICAL RESULT 3.3 Performed By: #### 5 0608 #### [address] [place], [place] [id number] [place] [address] LIPASE BLOODon 11-06-2021 LIPASE 15 Units/L Normal [facility] Comment on above: Performed By: #### 8 6002 #### [address] [place], [place] [id number] [place] [address] PELVIS 1 OR 2 VWSon 11-07-19 22 PELVIS 1 OR 2 VWS [facility] Department of Radiology [address] [place] [phone] ======== Patient Name: MYRANDA YANES : 1940 Sex: F Age: Race: White Pt. Location: [facility] Patient Status: E Ordered Date: [...] findings in this report. Electronically signed: Mandeep Alvraado. Transcribed by: [email or web address], User Resident: CHENTE MONSALVE Electronically Signed by: MANDEEP ALVARADO @ 11/06/2021 06:38 AM I personally read this/these film(s) with this resident Normal [facility] Comment on above: Order Comment: Crite brittaney for reflexing a culture was not met. Please call the lab at [phone] within 24 hours of collection time if culture is needed POC GLUCOSE EDon 11-06-2021 Glucose [Mass/Vol] 107 mg/dL High 70-100 [facility] Comment on above: Performed By: #### 8 5499 #### [facility] [address] [place] [address], [facility] POC GLUCOSE LABon 11-06-2021 Glucose [Mass/Vol] 165 mg/dL High 70-100 The [facility] Comment on above: Performed By: #### 8 5499 #### [facility] [address] [place] [address], [facility] Glucose [Mass/Vol] 153 mg/dL High 70-100 [facility] Comment on above: Performed By: #### 8 5499 #### [facility] [address] [place] [address], [facility] POC SARS COV2 IDon 2 SARS-CoV-2 (COVID-19) RNA JAMMIE+probe Ql (Unsp spec) Negative Normal NEGATIVE [facility] Comment on above: Result Comment: ID [...] Accreditation. Performed By: #### 3 1595 #### [facility] [address] PROTHROMBIN TIMEon 2 INR Coag (PPP) [Relative time] 1.01 {INR} Normal 0.91-1.16 [facility] Comment on above: Result Comment: ACCC [...] 1995;108:[id number]. Performed By: #### 5 0608 #### [facility] [address] [place] [address], [facility] PT Coag (PPP) [Time] 13.3 s Normal 12.3-14.8 [facility] Comment on above: Result Comment: ALL RESULTS MUST BE INTERPRETED WITH RESPECT TO BLOOD DRAWING ARTIFACT OR DILUTION ERROR OF ANTICOAGULANT AT THE TIME OF SAMPLING. Performed By: #### 5 0608 #### [facility] [address] [facility] TROPONIN-Ion 11-06-2021 Troponin I.cardiac [Mass/Vol] 0.00 ng/mL Normal 0.00-0.04 [facility] Comment on above: Result Comment: REFE RENCE RANGES: 0.00 - 0.04 ng/ml NORMAL 0.05 - 0.50 ng/ml INDETERMINATE > 0.50 ng/ml CONSISTENT WITH AN M.I. Performed By: #### 8 6002 #### [facility] [address] [place] [address], [facility] TYPE AND SCREENon 11-06-2021 ABO INTERPRETATION A Normal The [facility] Comment on above: Performed By: #### 6 2586 ####[facility] [facility].[address] RH INTERPRETATION Positive Normal The [facility] Comment on above: Performed By: #### 6 2586 ####[facility] URINALYSIS REFLEXon 11-07-19 22 Appearance (U) CLOUDY Abnormal CLEAR The [facility] Comment on above: Order Comment: Crite brittaney for reflexing a culture was met. Urine Culture and sensitivitywill be performed. Performed By: #### 3 4 #### [facility] [address] [facility] [place] [address], [facility] Bilirubin Ql (U) Negative Normal NEGATIVE The [facility] Comment on above: Order Comment: Crite brittaney for reflexing a culture was met. Urine Culture and sensitivitywill be performed. Performed By: #### 3 2044 #### [facility] [address] [facility] [place] [place] [address], [facility] Color (U) YELLOW Normal YELLOW The [facility] Comment on above: Order Comment: Crite brittaney for reflexing a culture was met. Urine Culture and sensitivitywill be performed. Performed By: #### 3 2044 #### [facility] [address] [place] [address], [place] EPIS FEW Normal FEW,OCC,NONE SEEN [facility] Comment on above: Order Comment: Crite brittaney for reflexing a culture was met. Urine Culture and sensitivitywill be performed. Performed By: #### 3 2043 #### [facility] [address] [place] [address], [place] Glucose Ql (U) Negative Normal NEGATIVE [facility] Comment on above: Order Comment: Crite brittaney for reflexing a culture was met. Urine Culture and sensitivitywill be performed. Performed By: #### 3 2043 #### [facility] [address] [place] [address], [place] Hemoglobin Ql (U) MODERATE Abnormal NEGATIVE The [facility] Comment on above: Order Comment: Crite brittaney for reflexing a culture was met. Urine Culture and sensitivitywill be performed. Performed By: #### 3 2043 #### [facility] [address] [place] [address], [place] KETONE Negative Normal NEGATIVE The [facility] Comment on above: Order Comment: Crite brittaney for reflexing a culture was met. Urine Culture and sensitivitywill be performed. Performed By: #### 3 2043 #### [facility] [address] [place] [address], [place] LEUK BEV MODERATE Abnormal NEGATIVE [facility] Comment on above: Order Comment: Crite brittaney for reflexing a culture was met. Urine Culture and sensitivitywill be performed. Performed By: #### 3 2043 #### [facility] [address] [place] [address], [place] MUCUS THREADS MOD Abnormal NONE SEEN The [facility] Comment on above: Order Comment: Crite brittaney for reflexing a culture was met. Urine Culture and sensitivitywill be performed. Performed By: #### 3 2043 #### [facility] [address] Nitrite Ql (U) Positive Abnormal NEGATIVE [facility] Comment on above: Order Comment: Crite brittaney for reflexing a culture was met. Urine Culture and sensitivitywill be performed. Performed By: #### 3 2043 #### [facility] [address] [place] [address], [facility] pH (U) 5.0 [pH] Normal 5.0-8.0 [facility] Comment on above: Order Comment: Crite brittaney for reflexing a culture was met. Urine Culture and sensitivitywill be performed. Performed By: #### 3 2043 #### [facility] [address] [facility]. [address] Protein Ql (U) 30 mg/dL Abnormal NEGATIVE [facility] Comment on above: Order Comment: Crite brittaney for reflexing a culture was met. Urine Culture and sensitivitywill be performed. Performed By: #### 3 2043 #### [facility] [address] [facility]. [address] RBC 6-10 Abnormal NONE SEEN [facility] Comment on above: Order Comment: Crite brittaney for reflexing a culture was met. Urine Culture and sensitivitywill be performed. Performed By: #### 3 2043 #### [facility] [address] [facility]. [address] SPEC GRAV 1.014 Low 1.015-1.020 The [facility] Comment on above: Order Comment: Crite brittaney for reflexing a culture was met. Urine Culture and sensitivitywill be performed. Performed By: #### 3 2043 #### [facility] [address] [facility] [place] [place] [address], [facility] WBC UA 51-100 Abnormal NONE SEEN [facility] Comment on above: Order Comment: Crite brittaney for reflexing a culture was met. Urine Culture and sensitivitywill be performed. Performed By: #### 3 2043 #### [facility] [address] [facility] [place] [address], [facility] VITAMIN D 25-HYDROXYon 11-06 VITAMIN D 25-OH 23.6 ng/mL Low 30.0-80.0 The [facility] Comment on above: Result Comment: >80. 0 Toxicity possible Performed By: #### 8 6002 #### [facility] [address] [facility] [place] [place] [address], [facility] AMMONIAon 11-05-2021 Ammonia (P) [Moles/Vol] 24 umol/L Normal 11-32 [facility] Comment on above: Performed By: #### A MM ####[facility] [address] [place] [address]Dr. Lynettesujata Taylor BNPon 11-05-2021 Natriuretic peptide B (Bld) [Mass/Vol] 350.0 pg/mL Normal <=1,800.0 [facility] Comment on above: Performed By: #### H STROPN, CMP, BNP ####[facility] [address] [place] [address]Dr. Arnoldo Taylor CBC AUTO DIFFon 11-05-2021 BASO # 0.0 103/ul Normal 0.0-0.1 [facility] Comment on above: Performed By: #### C BC ####[facility] [address] [place] [address]Dr. Arnoldo Taylor Basophils/100 WBC (Bld) 0.2 % Normal 0.2-2.0 [facility] Comment on above: Performed By: #### C BC ####[facility] [address] [place] [address]Dr. Arnoldo Taylor EO # 0.2 103/ul Normal 0.0-0.7 [facility] Comment on above: Performed By: #### C BC ####[facility] [address] [place] [address]Dr. Arnoldo Taylor Eosinophils/100 WBC (Bld) 2.3 % Normal 0.9-7.0 [facility] Comment on above: Performed By: #### C BC ####[facility] [address] [place], [place] [address]Dr. Arnoldo Taylor Erythrocyte distribution width (RBC) [Ratio] 12.7 % Normal 11.0-15.0 [facility] Comment on above: Performed By: #### C BC ####[facility] [address] [place], [place] [address]Dr. Arnoldo Taylor Hematocrit (Bld) [Volume fraction] 38.1 % Normal 36.0-48.0 [facility] Comment on above: Performed By: #### C BC ####[facility] [address] [place], [place] [address]Dr. Arnoldo Taylor Hemoglobin (Bld) [Mass/Vol] 12.4 g/dL Normal 12.0-16.0 [facility] Comment on above: Performed By: #### C BC ####[facility] [address] [place], [place] [address]Dr. Arnoldo Taylor IG # 0.02 10e3/ul Normal 0.00-0.03 [facility] Comment on above: Performed By: #### C BC ####[facility] Rkes[address] [place], [place] [address]Dr. Arnoldo Brandon IG % 0.2 % Normal 0.0-0.5 [facility] Comment on above: Performed By: #### C BC ####[facility] Telv[address]amsj[address] [place], [place] [address]Dr. Arnoldo Brandon LYMPH # 3.5 103/ul Normal 1.2-3.8 [facility] Comment on above: Performed By: #### C BC ####[facility] [address]qu[address] [place], [place] [address]Dr. Lynettesjuata Taylor Lymphocytes/100 WBC (Bld) 37.9 % Normal 20.5-60.0 [facility] Comment on above: Performed By: #### C BC ####[facility] [address] [place], [place] [address]Dr. Lynettesujata Taylor MANUAL DIFF REQ NO Normal [facility] Comment on above: Performed By: #### C BC ####[facility] [address] [place], [place] [address]Dr. Arnoldo Taylor MCH (RBC) [Entitic mass] 30.1 pg Normal 26.7-34.0 [facility] Comment on above: Performed By: #### C BC ####[facility] [address]ty[address] [place] [address]Dr. Arnoldo Taylor MCHC (RBC) [Mass/Vol] 32.5 g/dL Normal 29.9-35.2 [facility] Comment on above: Performed By: #### C BC ####[facility] X[address]xjl[address] [place] [address]Dr. Arnoldo Taylor MCV (RBC) [Entitic vol] 92.5 fL Normal 81.0-99.0 [facility] Comment on above: Performed By: #### C BC ####[facility] [address]zlt[address] [place] [address]Dr. Arnoldo Taylor MONO # 1.0 103/ul Critically high 0.3-0.8 [facility] Comment on above: Performed By: #### C BC ####[facility] Vxkutekuiv[address] [place], [place] [address]Dr. Arnoldo Brandon Monocytes/100 WBC (Bld) 10.2 % Normal 1.7-12.0 [facility] Comment on above: Performed By: #### C BC ####[facility] [address] [place], [place] [address]Dr. Arnoldo Taylor NEUT # 4.6 103/ul Normal 1.4-6.5 [facility] Comment on above: Performed By: #### C BC ####[facility] [address] [place], [place] [address]Dr. Arnoldo Brandon Neutrophils/100 WBC (Bld) 49.2 % Normal 43.0-75.0 [facility] Comment on above: Performed By: #### C BC ####[facility] Xmrz[address]xyev[address] [place], [place] [address]Dr. Arnoldo Taylor Platelet mean volume (Bld) [Entitic vol] 10.8 fL Normal 9.5-13.5 [facility] Comment on above: Performed By: #### C BC ####[facility] [address] [place], [place] [address]Ss. Arnoldo Taylor PLT 159 103/ul Normal 150-450 [facility] Comment on above: Performed By: #### C BC ####[facility] Lsthflylii[address] [place], [place] [address]Rg. Arnoldo Taylor RBC 4.12 106/ul Critically low 4.20-5.40 [facility] Comment on above: Performed By: #### C BC ####[facility] Lqzvrkdjao[address] [place], [place] [address]La. Arnoldo Taylor WBC 9.3 103/ul Normal 4.0-11.0 [facility] Comment on above: Performed By: #### C BC ####[facility] [address]ss[address] [place], [place] [address] CT HIP LT WO CONon CT HIP LT WO CON Normal The [facility]on SARS-CoV-2 (COVID-19) RNA JAMMIE+probe Ql (Unsp spec) Not detected Normal NOT DETECTED The [facility] Comment on above: Result Comment: When diagnostic [...] for this test is supported by the [employer]'s declaration that [...] be used). Performed By: #### C VDTBH ####[facility] [address]we[address]cq[address] [place], [place] [address]Cv. Arnoldo Taylor PROF 14(COMP METB)on 022 Albumin [Mass/Vol] 3.6 g/dL Normal 3.4-5.0 [facility] Comment on above: Performed By: #### H STROPN, CMP, BNP ####[facility] [address]axp[address] [place] [address]Dr. Arnoldo Taylor Albumin/Globulin [Mass ratio] 0.8 {ratio} Normal The [facility] Comment on above: Performed By: #### H STROPN, CMP, BNP ####[facility] Otqbvoxsgy[address] [place] [address]Dr. Arnoldo Taylor ALP [Catalytic activity/Vol] 79 U/L Normal 46-116 [facility] Comment on above: Performed By: #### H STROPN, CMP, BNP ####[facility] [address]ql[address] [place], [place] [address]Dr. Arnoldo Taylor ALT [Catalytic activity/Vol] 19 U/L Normal 14-59 [facility] Comment on above: Performed By: #### H STROPN, CMP, BNP ####[facility] Vxzcomcbpr[address] [place] [address]Dr. Arnoldo Taylor Anion gap [Moles/Vol] 10.8 mmol/L Normal [facility] Comment on above: Performed By: #### H STROPN, CMP, BNP ####[facility] Wiukax[address]ap[address] [place], [place] [address]Dr. Arnoldo Taylor AST [Catalytic activity/Vol] 20 U/L Normal 15-37 [facility] Comment on above: Performed By: #### H STROPN, CMP, BNP ####[facility] [address]rok[address] [place] [address]Dr. Arnoldo Taylor Bilirubin [Mass/Vol] 0.5 mg/dL Normal 0.2-1.0 [facility] Comment on above: Performed By: #### H STROPN, CMP, BNP ####[facility] Esbxgnqcjs[address] [place], [place] [address]Dr. Arnoldo Taylor Calcium [Mass/Vol] 9.4 mg/dL Normal 8.5-10.1 The [facility] Comment on above: Performed By: #### H STROPN, CMP, BNP ####[facility] [address]twql[address]dx[address] [place] [address]Dr. Arnoldo Taylor Chloride [Moles/Vol] 104 mmol/L Normal 98-107 [facility] Comment on above: Performed By: #### H STROPN, CMP, BNP ####[facility] [address]mqdskmxsl[address] [place] [address]Dr. Arnoldo Taylor CO2 [Moles/Vol] 28.0 mmol/L Normal 21.0-32.0 The [facility] Comment on above: Performed By: #### H STROPN, CMP, BNP ####[facility] [address]yglmb[address] [place] [address]Dr. Arnoldo Taylor Creatinine [Mass/Vol] 1.00 mg/dL Normal 0.55-1.02 [facility] Comment on above: Performed By: #### H STROPN, CMP, BNP ####[facility] [address]lmxar[address] [place], [place] [address]Dr. Arnoldo Taylor EGFR-AF TRISTANIAN >60 Normal >=60 The [facility] Comment on above: Performed By: #### H STROPN, CMP, BNP ####[facility] [address] [place], [place] [address]Dr. Arnoldo Taylor EGFR-NON AF TRISTANIAN 53 mL/min/1.73m2 Critically low >=60 [facility] Comment on above: Performed By: #### H STROPN, CMP, BNP ####[facility] [address]vger[address] [place] [address]Dr. Arnoldo Taylor Globulin (S) [Mass/Vol] 4.4 g/dL Normal [facility] Comment on above: Performed By: #### H STROPN, CMP, BNP ####[facility] [address]ulza[address] [place] [address]Dr. Arnoldo Taylor Glucose [Mass/Vol] 104 mg/dL Normal 74-106 The [facility] Comment on above: Performed By: #### H STROPN, CMP, BNP ####[facility] [address]ke[address]ahrlq[address] [place] [address]Dr. Arnoldo Taylor Potassium [Moles/Vol] 3.8 mmol/L Normal 3.5-5.1 [facility] Comment on above: Performed By: #### H STROPN, CMP, BNP ####[facility] [address]fr[address]ufv[address] [place] [address]Dr. Arnoldo Taylor Protein [Mass/Vol] 8.0 g/dL Normal 6.4-8.2 The [facility] Comment on above: Performed By: #### H STROPN, CMP, BNP ####[facility] [address]chzx[address] [place] [address]Dr. Arnoldo Taylor Sodium [Moles/Vol] 139 mmol/L Normal 136-145 The [facility] Comment on above: Performed By: #### H STROPN, CMP, BNP ####[facility] [address]qsa[address] [place] [address]Dr. Lynettesujata Taylor Urea nitrogen [Mass/Vol] 19.0 mg/dL Critically high 7.0-18.0 [facility] Comment on above: Performed By: #### H STROPN, CMP, BNP ####[facility] [address]qrckfab[address] [place] [address]Dr. Lynettesujata Taylor Urea nitrogen/Creatinine [Mass ratio] 19.0 mg/mg Normal [facility] Comment on above: Performed By: #### H STROPN, CMP, BNP ####[facility] [address]outuv[address] [place] [address]Dr. Arnoldo Taylor TROPONIN, HIGH SENSITIVITYon 11-05-2021 HSTROP 6.0 pg/mL Normal 4.0-51.3 [facility] Comment on above: Result Comment: CUT- OFF POINTS HAVE BEEN ESTABLISHED BASED ON THE FOURTH UNIVERSAL DEFINITIONS OF MYOCARDIALINFARCTION. THE UPPER REFERENCE LIMIT (URL) OF TROPONIN, DEFINED THE 99TH PERCENTILE OFcTnI DISTRIBUTION IN A REFERENCE POPULATION, HAS BEEN CONFIRMED THE DECISION THRESHOLDFOR WA DIAGNOSIS. Performed By: #### H STROPN, CMP, BNP ####[facility] [address]zqn[address] [place] [address]Dr. Arnoldo Taylor XR FEMUR LTon 11-05-2021 XR FEMUR LT Normal [facility] XR HIP LT 2 3V W PELVISon XR HIP LT 2 3V W PELVIS Normal [facility] Outside Labson 06-29-2021 Outside Labs [id number]#1.0 0CD:127 Normal [facility] Outside Labs [id number]#1. 00CD:127 Normal [facility] Coding Summary.on 06-16-2021 Coding Summary. CD:[id number] Gh 0bWw+PGhlYWQ+GI3ELTRxH 83fgHBpgX1SM9nGIQ1BRMF MYUJJNU7VKK1vgHY2HWheQ 2VybiAv QsxovFLaUH30HMw0GJA7lR uqPDtgsU5olHLeF5a5OeEb GG30xT48YRfqIOKjGpC4Ru ZpbjsgbWFy F8tuQrPpdPUdElf+PHRhYm xlIHdpZHRoPScxMDAlJyBz pHujAX2hTj3oUVOnYINlgM xhcHNlOiBj w6rnSKGjQRohXE6lgOdvU1 LlwRB0LQDxt1u5Lg64bSI+ KFEsLOJ2mTjiIVyes016Bq Rrc3epMRD1 rEJoZQzpAGH2Y00ak5L6ZO MmQAMxATU9bTD5lD4srQhu hreeX7JzmMAdYaE7PPY2qU SqiM1raVbe vxnvtG9oDsz+L03MSS1TNR KPLN5NVdv2Z9MgOolfgIL+ BQ08HFDnNZ52hDMrjFUpa5 nytZn7LbGw SRQlPSJ3oIbmXYvoj6GcCE HdY81faDNgb5T6CDCxiXql mGYmAlFozVE4nL8iCKagsu ckx3evqmjd Jibte5tlnw10aM29X61nRD mwZLQdUWQ6UIBwBPZhjOxa ly6ziD5oEk3+TMghe5nuy9 nuiPy8KtFh DTMkimPqeRvhZPW7s0KaVd 88X1TfhGmcr6NeTqr6dh29 wCEmk6R1zMK7VNjlIMXdtE 5rSLpsHbZ6 TPWwHjCzuK55aFBsWMbtSo 7wnXmeuVfnPP8aUMFrxcqr UKVtxZ0qPLUnjXCamOceEN 4wNTBpbjtm j504GjHyRZH7NEEvmLOlH9 UaaJ6qHoJsGEXkUUYsY7El dCXoTOsiO227NKscXdY9UV NpwmNkW4Oi VGTovFdlVvA3t6N4Qj1Zb0 AepakyTWP5MEdnZFJhDgP1 OiOnShP1Y5CvFxu5EJOrpD izPK6xB3Mf QNKpyzbbftbjnLD9QSNcQG GcwD21aBDuIZitPi4tx5N2 x910RXHuLPBdfL89Ku2leH ogMTBwdCBU rV1fahmmv9urjyndOzOaBK NnLPq1GQq7EMMnpQdpQbDc AUC2LjA3ZNU8qWNymV8ueT mtmehohW6w Oyc+V60tbX4cVPC0QSR2fb sdCRCvlvQiPG27FW74X0Fe PjwvdGFibGU+PGRpdiBzdH gzUQ9ePnLn x0fii4EmDNkzN8KhYYTbXV neOxv5BKPxAMR7lJU1zH8c IOWlFGikz3T3vYE2N7Ntgt Sido3dn9ey QPJhELowL80fpECee5D5QD RsyDU4IFNtxOfeIaPwlV80 Oyc+AOVgeEraz3SeAvxmi3 dnl0yuiFw8 ToNwZVSnvsHbgIkuIYC1d8 YvWj27F22jEIjnGTKhCVOw XLKyFJYwaLzwae1bzD9yZg 8+PGNvbCB3 mTE9tO1mSJNdCgZ6FDonM7 75XnIwyISaDgldf1wzm7no xDk0EmBiTYMqgqIlfChaYY A0j5WjHm05 S91qCNfpSXWiPEWrKPYgGF HfaLulav9vdJ3jZw4+PC9j d4tiaw19eE22nSM+PHRkIH J9nVrhCFtl SCNajU5jANtlIwS6XUEfOv IjdB05zEApCHdqEm5ciRpl nApcVM9tYECiwtnsi758Rj Gdr7jpELMi fVItPPgdICZ9C26wp2D3PI BnNCQmLCR5fRG2bL5gnKeu bjogbGVmdDsgdmVydGljYW geLHpzN851 IHRvcDsnPlBhdGllbnQgTm AwSBc8J0FiEcl6MSQzkUws KS7rhLImXPmtDs5pdVzejI mjXC4pXFBc dyraj693SfPet4qfGYQgkL LfOOciNZN0K57lh1C9NTQq HRIqHDW4fPY5mV5ycBzwfr ogbGVmdDsg fsNsbSntIGbeHMabP981RV RvcDsnPkJpcnRoIERhdGU6 JV13QZ61xDUxv2M4fIP8G2 BhZGRpbmct shzczEA6WZOdREFbrJ84Dp 6deLyzMc5kISHmISR3XMAp uOIpN7NedD1oBzToUJYgKF QhZ3ZxoGFh ITwtS692VChvWzC7HZYaoi PoZ7NpBHZsaSctTuP6m0H6 Dd5UG1I6OL23YR53aHFsl9 U6wGJ6H8Ta UCJfxiwmsxupkJN2QDMqXG TnsJ13Qn2deVqdAz4rCMJn JWZ5PSIixJYyC2TxkD2dUn AjMDAwMDAw M8EfvVSrHVoqM653TEcpEn B4PXIyatMwI4IcYHKsxKcd GeY9z5F1Ad8AMJo8FN30DQ 73cVDlc2N8 eUT6C2AoUBLsekovwinrlV F7YSWtJZEqqC24Jk3hkMrq Wy8uESNjNJH7NNZmoGBaD6 WfxA4fWmDg XCOoPYObZ7KpcJUjRPskK4 91WLpiMzD8FCRkccRhS1Qi HDLycJwdLxN7j2A8Kx9HFM LfRW77BOI5 yCT0YF56SO29T5SyTxiveA FibGU+PHRhYmxlIHdpZHRo RIdqGWDiAiHnnHhvGE2lNg 9yZGVyLWNv tKxsdWUkEhCod1rpGZOlBB ccWO1dkAbqA5BrwEV6QLNy j8x0Cs22L46zP8EnyKR+PG MriNV0vYO6 dY5mSbJuEoP8ZKtrY642Dp GwoSTqEqtbr4scr1bnwHq7 BaQ1BMDakiHelYxuKNW6e9 KyTj83F25f IHdpZHRoPSIxNSUiIHZhbG cxsh4ldJ3xQs1+PGNvbCB3 jVB1zS2cRiNzPbM4EAhjQ8 49InRvcCIv Mvliv4hry9ctdJj4AxAqJO RvyxAzhJcnWWG1u5YqBl80 X1VngIllu2EkAcx0hs94hY Rkq0Y4hET8 V8AsNLHhzqnmdTVqaEzdBO 5hXUPptuknJIGsxS4zGVRb D5a9FdZfSeS7NWcyN8Yjtd J4RGKvtBLr ZPjjUOA3V31fy2H8DMBxZX AsSIZ9uOU8tO7lkWzoaown bGVmdDsgdmVydGljYWwtYW qgA211PPAj qNykGBNjiK6cQPZbcYNecT gdRX8sGNBvxkkhAzMYV0ob IFNISVJMRVkgQTwvdGQ+PH HnZVM7sXle NYmqXZYujI3jYBLtE9l2Na PvYoG5BEfcY1TaJPXhbbnt Eo47xZ6sDpSwWcR6ECjaT7 VmxbU5HOSi gGGfVGipLDA0B99kx9O8YB DyIBTwAIC8iJV4iV1fyQcs bjogbGVmdDsgdmVydGljYW nhLOqqQ609 WTNuwEcqZnIbFiS2RnG1XT W7N7DzSer8CDCqgCopAW4f fERpFGwwMe0erPiiaLsuBC 4wNTBpbjtw IWGmtX3uKJOljJMiaAyhEK 4hXSMzhofqw968MkRdGSF5 YTVztIPtX7SbjL1nNhFhIK NgAFAxL3Gm kRPyULgbU629INwqWdK1UW BlaiVoS2SwJDTznRfsItK3 y8N0Iz57XNAABJHjnzkngC Q+PHRkIHN0 bRflHKbnXCPcoY6aMAJlK3 m6EwKyFmS0ACfsE7PqNVXl yzndBi95yB7iGeUsYaG6MP shJ4UsbuO8 EIAzgACfDUylHUI9H43st8 R0GBViYBOlRQF5vIF2lH4o bGlnbjogbGVmdDsgdmVydG ljYWwtYWxp W569MMTtsWsoQmOymMDvQT wvdGQ+PVInBKL4wOxnZXnv XHIinG3wEUXcC9v6UkSeKg S2NHdsM0Gt LTOedrxlEc54zV0dFfYpEc I5BKznW4UqjvT6JXEasKWo NFonBGO4K65ci9O9IKAdVC VsOPL2gOC3 xI7dgVhauitfyUTlbRzlad IsaGmbEWvnOVsmH277VEDv jZzzUf36aCIlkPhayqE2G0 RkPjwvdHI+ SU41HMTdEM28cCMmxLJmj4 gswDr7DmMoMJJlOPW8bRqm TXncg6RtMTEtK56xjOLwa0 W7NYPetZpq uMUpMbSbsVQ0aO1nKDrzcb pfz2zfcsdeAlvek4rmnn40 rR37I55xNReqGUViTABzXQ UiIHZhbGln em5hnM2pTq7+HJPejAA7vA T6rX3pXqFkFbN6DNxdJ208 LzNbdZKpJmwwk2fsk6vrvU x5RjWnTIRj zrNnmJusEMM9f1SnSs93Q6 9sIHdpZHRoPSIyMCUiIHZh dStpgg9eyI9wSz4+PC9jb2 hupt61bS37 dHI+HEClEMQ8vQpcXRgbOT XbuP5wLEnqDvZ3KBZqEaCp eQ37qRThGFbrJb1rhXsleS pnNG4aMELw klayg489McUqi6igTPMecF NbSSjfRVR1D22fe3C2HVRi ELXmGSX7dLB9eH5xrVlquv ogbGVmdDsg qhPmwVsnBTnxZTvkF098HS RyeChyHfUigBYqE6xgvzHS DL8hTzujlVL+JKGvAPE9bI xlPSdwYWRk pR3fNELoI0k3RgEcXpO5PH jxH3VmvxS9VBBndIGbDKEk eZAZoZ6dfyvry1xzuxcoOg AwMDAwMDt0 YYe5TPEczUzsQnFwTAC7Gk K6TYJ5qDBajH5fkArekxfq tB9cLeu+RklOOjwvdGQ+PH DtJBL6oSgz XQybOBDqsJ0zJESbG8b6Xd VsCqZ6UPgfV5CteaR4TEWm iUOvTSLkpFNAqX3vdmgrc3 xvcjogIzAw VHAsYFk1ECf5KJLhaVvhCi JuEXZ2LoG0HGV6tREepO9i vZolyblazS9cLjj+TVJOOj wvdGQ+PHRk XSF0zDbeGJlzEYPssG2hDA TsL6y8YgGcJrX8ROcwR4Ne bzY4OVEokPDdVQZgwFRCbE 2crgaxl2tw joooDaYcMJRnUCc7RZr9AZ PdxVamCpSyZTJ8WbU6GHL6 aPUwaC5ahApmxcwytF4zOe c+LOS7LTX9 IS37SK78X0GgQuiwkAJljR U+PHRhYmxlIHdpZHRoPScx BDAwScFstHonTM0uXf7dJG VyLWNvbGxh cHNl (more content not included)... Normal [facility] CT Chest w/o Contraston 06-02 CT [...] FINAL REPORT Dictated: 06/12/2021 2:48 pm Milad Marquez M.D. Signed (Electronic Signature): 06/12/2021 2:48 pm Signed by: Milad Marquez M.D. Transcribed by: BACILIO Technologist: [facility] Consent for Treatmenton 06-02 Consent for Treatment [id number] 0CD:127 [facility] Coding Summary.on 06-08-2021 Coding Summary. CD:[id number]:[id number] Gh 0bWw+PGhlYWQ+RS5MYFSiN 67slUFbiE2AR5hEVJ3YXVB KMJEOTG8GNX0uuDU4JZazA 2VybiAv LdlbtEJtWN09ETs7JKK4fG obOZsweC3pnTCfI5z6NlTp BZ06jE35FDhyOKNnSeW8Ea ZpbjsgbWFy K1quUsCfzHZtGhl+PHRhYm xlIHdpZHRoPScxMDAlJyBz rCfbDH7bAu2nBWSwLGAfcY xhcHNlOiBj e4lvMUDfFVkkVI7pbDopA4 IohBK8GUMhz4m5Sn32vES+ REOqRWC7hQrlESmnt418Tc Qzy9yrQRL3 oQKhNMlsTEU6F54oj0Z1JY IwYAXpZTV8dWC5eP7fzXca msckW6ConBLsZbR3BSY9vZ KaoK9naNgl bjgpdG3iUyf+P91OEP5MQG UZVP4WFvj3C7FrUcvssFM+ UQ82ABMdZI79yPUibGZav1 scbNd2GmEb STNwBCA9aSlhOOuqp5CnFF DbQ42scPXlj4C8HQSacFga bKTaPxTgvPH0kY2eMVtpnp hwb4orvnbs Mvwps8lgcp89aO50N19yLX xlOQVwNYZ4YSQxOXTyfKhz rk7arG5qLb3+WRhdd1wdy8 nxbJd6XnHy BCFzhjWybXzvHMG6r7EhQt 97M4XdwOpgi9JwMen6gz65 vGUyg1G0vYG0UZwdQCJfxY 6eDRdrSkP2 UIUzWfKtxH41mFWlOBnjCa 1odFltdVcxBZ2rPLPtvfcm SUQtaJ3fMOJtjONlhFcvRA 4wNTBpbjtm v844MhRyCBP3QTSyeOZxI9 TzmR2tApNcNNShZUKpF2By jCEfYVxpE074GRqzYeA7PX FtxnAsE7Ia NJPkmUpkVsZ5t8N8Pc7Ih4 ZkpvmpVKM0DEgfFGFvMnV8 JdDjMoE6L5FpLvr9PFMwbV tgNK4rF0Ed PNHjbnqbtxpgeJF3OQLvHK JrvE88mWSgQFolEx0lz4O2 a235PWIaZBDmxD35Tb9usQ ogMTBwdCBU yT8pfmylo1txsrcrUyDqKZ IpJLi5YEn7IREdkRusDiJk OVR4NaG7ZNE0gWIvoE7voI bbpmyioP3d Oyc+K31lkH6kUAQ1APO1nf tsJVWqnuVvRD72QO66M8Eo PjwvdGFibGU+PGRpdiBzdH mdRH4wMtNs h1sfs9OtJSkkC7JtAQRtCE tkUyl0NWVhTYX3wKC5cR1n DZNyTSjke5N4bVR5A6Vjsl Qyji8go6zo CUHeMDmqI91kmTAhv7X3QA PaqRM9WPHkkGxrPkFmcR89 Oyc+OXSpgNjnt8PhJanqv5 dtp8zpnFs6 DkWrUSIrjdLcdKnqNKR2q3 CwKi31T91wTFqfJIWdBQGn ZWIxUSIobTfihx4joM1lBb 8+PGNvbCB3 eTO7kZ6cBLKjNrL0LDumQ9 76EyTwzFLeQqwkw4pos1wb tPr8CrSpVNSkobUzoAfsTB P5p1KkQd60 S71dZWyuMGXiLZPwHXPrBK FscUognf5cfT4jPo7+PC9j w1kciu72sR11tCE+PHRkIH Y3nGjjRAtv OZEovT2iQUdmYuN8DPEzQx CbyY56rDFiGGyaIb4dsHyx kVdnIP6pPUIqxyohb872Qa Hmd5jwMIDb sSFhYRcgDWL5A31pk9Q3ZO QjPLIeIGM2mZJ1dM8koBum bjogbGVmdDsgdmVydGljYW wnEXtoH085 IHRvcDsnPlBhdGllbnQgTm XfYHk4P4XqKrp0FBTtfArr VZ3nxDOjDMlkLx1faOuftX oaQN6eSQFk dpfnk950UcFew5bdKYTchO SxFPzjGLH1P24jv6A2CDNw AOGnMWU8pYN2cX8klPvqvv ogbGVmdDsg izMitCdwCCwzWQnkA066OO RvcDsnPkJpcnRoIERhdGU6 NJ74ZX69lPHwk4B2mRS5B5 BhZGRpbmct qgrymVZ4GGEzQYIimS60Ld 2ddEjnFg8xZYNtYIT9BNQf lYHaG2RojC8yDiBjWMVoSL XdF5MbgGNt NZgnF843PUrwGoY1TWXrvg AiP2YsJEIpjIwpCgO1x5T6 Uq6QU2A6VG97QZ76oYYvd1 J0zCP0M0Eo TWPdbaoritzzeDH8CIDtFG MqfP52Ps6kgZeeOy3kRQBk MVC9NPVelLJdY1LriJ3dFi AjMDAwMDAw K7OzdKAnJPeqC775OFidFl L5OLLyylZwU2HnWEDgiFwy TiH2e3Y0Hn3WSXh8FI24NF 89kNCey5A0 jFH4Y7QkDAXowemawyajhA C5LBRhIHTyhZ18Ei8wyOer Kp2kGNBtBDO8TCZlkSLyI1 UqqZ2hUdOd YFJgDJWqC2AifEBlUVhwR1 56VPykFuX1RHPodoRaO0Iq IYGonIhfOqB8f5G7Ai6MHL YoLQ02BRT5 oLB9RS61GY76Q5GoAsenkJ FibGU+PHRhYmxlIHdpZHRo WPqsUTMhGkVkiRurLZ3jQh 9yZGVyLWNv fFbvrSBlVeJxn1hnUJTpYI apIL3xgKpvC1WkrNN2CSEt b8w6Ez34X76bX6ExgGL+PG XbvBN9mLC5 nM8sKqRnQtD4SMhcE093Pc EipNWnKzmue9zag7xvwIa2 NxH0KYQstgUaoMxuAEK1l4 OyYm19Y28g IHdpZHRoPSIxNSUiIHZhbG kmfe5jgL6cZr0+PGNvbCB3 xZB5gO9sVzJeDaR0INuwJ7 49InRvcCIv Hprig2qsd2xogWd6HuEsKG DuwuTsqAxtFVN0p9KuRx37 D7CbaKeqd3GkCqb3pj03qK Miu9A5oWU7 E8JzZOHereyjxETtoRhzCM 1uGCVsbzzwVTRzeE9eCSMj M9n0JaIgLfO0BKucM9Yqqm O6IUMriHAi XNikIVA3Y62as2E5JSLoKC HqLLS4gCK7zO4nqYbjgrgy bGVmdDsgdmVydGljYWwtYW esY131EVKx pRncNUGigL5tGWFcmIJjdD xbHP2cFATgnnbqHfWEA7ji IFNISVJMRVkgQTwvdGQ+PH XuMQR8eWvj MNolHQNsvU2dIRLmL3r8Ze CqKlA8EAejL5JyZXKvvsam Yu53tE7iIaDzAmB5GJdcW6 ToylF7VDWh dLOiUFkgMVB9B81ae8D4FO LwLIQmHQK1gYP8fB0oiHfn bjogbGVmdDsgdmVydGljYW ddZZkqK213 PCBluKtyYsKoMdY6FjI3OE M8A5TsXid0PGQttHtoGF0y rXNiDAecKd6bsXafjUazPM 4wNTBpbjtw XUNjlK7aSZCliKEkuGkhRC 5oBUTdsjhtg262KaFkUQE5 SHRxmEAfS8GveH3xQnUdEA OpSVWxQ6Gb rFTmQClbI239FGtpEeJ0AS OhjtHmX8LuLDXzmZzmKsH5 w1W3Qy99HIVTRNUhukyafJ Q+PHRkIHN0 sPvvRZzvWYQhpK0tQXSfG7 s2XbZcIdG7KKqcZ7KpXIUo vrurYv00xH6kTnLdXuB6NZ jlB3GecyN6 LLHivCNiNVotJPZ9G07dx5 C1UBCeKQHeVFV0nGT3yM1n bGlnbjogbGVmdDsgdmVydG ljYWwtYWxp D056ICMjiMcxWnWddMVcUO wvdGQ+TSPrIYT0zOpfZTeo XASeuW1yTLBvQ1h2TqZtOg Q1YPioA0Ty KGYcevkpDy24xH4eVbCfCa N0MMirA7WncoC5EXFmvVKv KAlrASJ9L56or3L4LEGwEW XhVAM4lQF3 kZ9guXyruoqipINokRviyu SopMeqUFdkDJlmJ775IZBa eTjzHe94qUEcxXsdflI7Z1 RkPjwvdHI+ TA29RYWtPN46rLIjaKTww7 criAm0LqAzYJRkEJS2iQkr IYllr6WmFKGnF40pgRQrn8 U0MVVepVwu kHLmWeXqlRX8bH4pICookj tqf3fxftfbSjcjf7jrpd36 bR72N18pFIqtTWYmZQFcLJ UiIHZhbGln sp8ghO1rUi8+EYElgBY4kQ D9jH9kZiZhUmJ4BHqiO146 HtAdaNUkBkxze1sno5adxN s2TvQuUADp loBsqTfiOJK5a7DmQs54F0 9sIHdpZHRoPSIyMCUiIHZh lGjbox5owU6mXb6+PC9jb2 gmge51gU99 dHI+KPCpWKZ3qJrwMMbgFN XjvE8kOBsyYjM3SVGyHyRm wP36qFZpTHspXz2bcLapzM uyAE3qCIDr obajc112BjYam8bbQSIyfC IvLKdwRPC7P49wj4R7HIDb RTAcIRP3hCY8rN2sqTomvy ogbGVmdDsg qlRoqZcmUValJDmfH915QC SohLeaKbPnjYKiT2bkeqLB IJ3nHvlnaNG+AAYsJHZ8uT xlPSdwYWRk hU4cUXLpF0u0HsZlGuQ3FA eqM2NaqkG8ELXfjGXeVHZj eAJNlG1otkbqp1pyloxvDj AwMDAwMDt0 YEp0CPDgyQfyXdJmABU2Vw K8XYZ5vTNnbK8ayEwsiudx bP5fKss+RklOOjwvdGQ+PH ZyXAG7jUuq SMquDQAxkT9fDMXmN3d4Ur EhUmG4WYycM6DdlvM8ZRFc iLWzFHOmhSSRzT6babuqt8 xvcjogIzAw JRUwUDw0WVu2QLCrzXivCe HrOXU6BaU1TRQ2lAKsvU9z tLfbjrtkqA8qIhy+TVJOOj wvdGQ+PHRk DJU0oQxuDEuhUBClqA9mWL JkX9v7QsTzYuZ1LRucK3Eo qhF1ECBylQPcQAJxtABYrZ 8tkgeya0mj spraIlVbKYWtZFw4JRd8FL FrsVmqOhShADA8IcD9LWV9 hGBilL7plNmgchbjwV5xZf c+QDF6NZJ0 BN42TN51B2CaSlcnaTTedI U+PHRhYmxlIHdpZHRoPScx IMDiGcPufIoaRB2tLd2dGN VyLWNvbGxh cHNl (more content not included)... [facility] Pre-Certification Formon Pre-Certification Form [id number]#1.0 0CD:127 [facility] Consent for Treatmenton 05-04 Consent for Treatment [id number]#1.0 0CD:127 [facility] Heart and Vascular Office/Cl inic Noteon 06-01-2021 [...] ciprofloxacin (Muscle weakness) sulfa drugs (Hives) [facility] Comment on above: Result Comment: Elec tronically Signed By: Kalpana ALDANA, Winston X\.br\Date and Time Signed: 06/01/21 17:29 EST Prescriptions/Work Noteson 0 06-01-2021 Prescriptions/Work Notes [id number]#1. 00CD:127 [facility] Progress Note-Physicianon Progress Note-Physician [id number]#1. 00CD:127 [facility] Pulmonary Function Studieson 04-20-2021 Pulmonary Function [...] recommended. READ BY: Sheeba Barksdale Dictated: 04/18/2021 [id number] Transcribed: 04/19/2021 cc:Whitney Goodman M.D. [facility] Comment on above: Result Comment: Elec tronically Signed By: Kalpana ALDANA, Winston X\.br\Date and Time Signed: 04/20/21 12:13 EST Coding Summary.on 04-19-2021 Coding Summary. CD:[id number] Gh 0bWw+PGhlYWQ+WN5HRMQrQ 66evCSrrN5RA7tGSX0WXIK GJMBFLW8FOL6fmQG5EMkwJ 2VybiAv UbcqkMObXN88UCc9DHX8iF kxNEqrxC0jeFZeA3j2XuQb ZF39yG49IXfwEFQlKaI5Wy ZpbjsgbWFy P8exLpNomEKpTar+PHRhYm xlIHdpZHRoPScxMDAlJyBz yGedQD4uMv1uQUBiROUeyL xhcHNlOiBj r6kbDFBsKOluPA4poMqsH9 QacTV8BQCyw2r5Vi22aUQ+ MKThQWQ7nJrvHEbsj509Rc Wre5bsMUZ1 pQYfUPxlKGP7H07nj1X8RQ DrTCEsQNA4eFL9bK6vxZsl gufnX8SnoOXgOpH6PTL9uC UjxT0wiVne nqvczV9cNla+K33VOV9QOY MKYS2WPzc7U3TcEzoouZX+ UB26CJDwBK65mHZljQWxi1 afcTh3JkFw WFXwAKS4lTkdBHbqz7GyMW NjU07cnWFny1C7XMVcsLxl iURoFdEbsLA2aP8eHWddde ezy8mtjfjc Dpjjo4hpqf05uL83R74lQZ ydTTHyYLI6EZGmHCQqcDix lz9ybO1yDg6+YNifn6glk2 midUs2VdNd TZAejcIumWqnTAG1l0YuCf 83G6OalPjej7AvCvo9mj76 hTWae7D0qAT5WOlfXUFijI 0rGPchThI4 HRXdKpJetI38nYEvRZpnTr 1meQjouMekXX5mICCospwj TWVdnN8rSFPpaYJlqRfwWW 4wNTBpbjtm z987IoJpCXZ7VCQulGTuQ3 AwqE5yQkNnHLEjFYYpJ0Sn lOBmSIgnO141WFlvRnS0HD YqpbZoN2Hw LFDnbZpbHeG2v2M3Mj7Lj6 TrevjpPOB6MJzkZIIjQoU3 RkAzJhH0A2PiRoi3KBCvhV cnTE6wQ3Zd BJQhwpoquagugOZ3XTMcHW QpjB95yMKdWGqvVp9ql3F0 k625WPNzLUBylK21En7hvB ogMTBwdCBU eP3aazkkl2mlwenbEbZxUO XhUMx0ESm8GDTtsOrjAqGa CMM3WjR3RWB2xLAcsO6kyJ vathaovJ9z Oyc+T87fmZ8bLVA4LXO6kd awFHLopdOjWC74WB21R4Ec PjwvdGFibGU+PGRpdiBzdH mjNZ0nAqPn u7vkw5MmNXiwL3SzTKMnOE oxYbx7ZASjJTP0lMZ3rR6t LBPpKKpay3B6rCQ8T5Tqgk Eksl6cq4ul GIOoVVkzP28jvCRqs4N8ZW ZdeLU0PCVirTdeDgLwoM62 Oyc+QOMwrLkvs8EmLvnki9 vpl4txgNc1 YfQsAGGstgYnfGvoSBT4j2 EaWl36I96oTEfkRJEjRLFh ZBJuFEYplMhxwc7vhC8tRz 8+PGNvbCB3 tAZ9dP0qKZOxRlZ1KFbvE2 87TlSenAXvWizgg0ykr0og dMy0InYlVNRuxiYhmBfqDV I8s5JyHk93 D23yGGpqPKAeLUMuSOKgYE DzgEuszo2zuH3dFm7+PC9j y1alfc52wP19bPU+PHRkIH A1pDxkJMob GXUgbY5nPRdlKtT7DBGlTq AziQ80iANiKDlsIh8gkNpf gUhqFY8yHQAwwzxqg952Av Uxe0emTREa lXHuICauZZM0L55vd2P6XQ FqVAUhXHI2kMO4mA0hgMdx bjogbGVmdDsgdmVydGljYW ggGQqfA200 IHRvcDsnPlBhdGllbnQgTm NxTEx3S9MuUkx1HXZgvSyi GC2ccOExNIilQq6voPrrgO aeZN4tAQVw kujeh383BrOca5ngUHZrsW BnMShwRVV5Q28fo9K8LPLu UDNwMWL7yAM8fI8snRcvqt ogbGVmdDsg pdAvnXeiQRseYZoaB110PR RvcDsnPkJpcnRoIERhdGU6 RZ57ME28lNLnj7J5zXX2U5 BhZGRpbmct pzgvlLC3KKQeJBIflM69Pz 6slXdmMo9eQYJvCGX1RWQp mBTcF1EarS9tLbOgTOFuEE HkN3FvcFXm IXduC186SNajUcN8VLDtbf JmT2GaJFKdyZyyElR5j6C3 Oe0UR2B3RQ23LG86yFJkv8 D8hLH8X8Gq RBTghddxqfueyMU6CRZaWF PnhX97Wu6tdQgxZl5oADBc HJO6XXEczFLaG9TvqU5sQj AjMDAwMDAw R5AuwYXmDVwtG635OWhlVl A7QOTzanDrU7KdZBHzsKdt SkT6i4G5Nd8MXRb4PS28TQ 44bZDki6R5 nHR7I8QbKXNiifyiyxaliP F0LRAjQGLtyG80Dx9iiFys Kd5jFGIoLJC2BHCqbXDjB5 ZylH9pMxAp VPXlCBQvG9WvwBDeYVtqM1 97USrtCkL6NRZsivEyW9Be VIPqyGkpPxE5c5C1Ki9OOT JlBT41SIM2 iFM1PW44FN04B0DsZoagrA FibGU+PHRhYmxlIHdpZHRo NAgdDDQbMxEfpAjlNU5wGv 9yZGVyLWNv cSvheLRlPeZfp6miEELeNI rrCK4wfVhaC6CpfSH1UJAi j0i0Mv08Z26bY8VmoJO+PG PowCC0aRA9 fN8cPiKvXsJ5HZjbT499Jz JtgDUdUberg9lhw8ddnSo2 JyP1EQUavbFnaNphUMD2w4 GlNf25Z41s IHdpZHRoPSIxNSUiIHZhbG bhuh6epW0lBi1+PGNvbCB3 uBG3kR5gRsChYyO4WYpsD7 49InRvcCIv Heelb0jen3iieVw5QmXsEJ JtcjGiqMswXZR7t1HtPd11 D6EacExgd9RuMjj0co41sN Lek0X2xFF3 F3AcNNLawwspqPXbkUmeGO 8qFPNsprpkODEryA7oXEXt C1n6RpUbFlQ2DGhoF0Ipin V3RMEzhYJb ZMskEDV2B88dv9U1MOMoMP IgQGL3jPX3jA1ydHuqcjjm bGVmdDsgdmVydGljYWwtYW kcU469SIGs mEdaJAWkbQ2tWMLtxBXppX dhMC7jERZjbftfHjNRS8vf IFNISVJMRVkgQTwvdGQ+PH RbNZF9uYrc UAqdQRGhdO3hKYRpB5c6Dn RfLmJ2UXtiL8HrVJBsqwqe Ex45fP4xOgVqBuB9IWwtF0 VzxqK7LNEb kNPpBNkhUCZ3Y32nt2J5KT CqKRGpNUJ4jML2dC8skPrl bjogbGVmdDsgdmVydGljYW leASxxX859 XVPmqTesIzTxXcH1QyW1HK E6U1CnNez4KYOheQbsAH5o sQTwHYcmFi3zeXcrdGipBX 4wNTBpbjtw UKUdrF1wVOLuiFElhWztKK 5oNFGjmaxvz801WpEyQDB8 PJRenXKgA4AewS0fRaDuQA QhKXPvC5Js zGTjGKoxT512BUkwDsU6UT DvzpXdM0YiUUXokQgsJhK8 g2M7Po83WVHLPLIspqwarA Q+PHRkIHN0 gOyeWFcpLTAwcV3nMPQvN2 i0VvRhSlZ0IEvwX5AoKYZm zoidVp20hA3yMzVjGxP4GE wpL9TzyxI5 IKOymKAsVSjzDYS7H86os7 Z7HSInHEVyXGH3uHF3wF3k bGlnbjogbGVmdDsgdmVydG ljYWwtYWxp R081BJRnpTjbAyDafBHoIS wvdGQ+VQBtBAG1nAphMXgm HIXtsG9kMONkM1a2XeArFj L5ZKqrY0Nl NUTnfrqnEi14xR9oQkErPd I4QVsoT1SopsV6WQRftSOh UXpdNGY3W40ad0Y0BMZtQH AcHCH4xGC8 pB7cvGpnhohzoMWdpZjslf TjtOsgIHifFIawS321EDOm xBfeCz32sWOeuCgdpxW9H4 RkPjwvdHI+ XB34IWObKG54pPKatMKeg1 exzZk2VmJcZUJfPHU5aLwy VUzar7NqOINlP34aqQLck1 Y8VYQqsFxm yMGbIlOezVP6uT5rESasoo ail7ayewafRzlkh3szcz67 pP33N80xTOpwAVZmWSYpMJ UiIHZhbGln av7irC5tUg5+ZGKyzQH4sG D9pX5tWgZrKuC1ARktC208 IxSniXCqVible4zjr2wdfS t9LqTwTHAs qjYtaAiiAQF9i7WnQp20R2 9sIHdpZHRoPSIyMCUiIHZh mMbtis0imQ0jKq8+PC9jb2 ynep79nP58 dHI+RWGtXQK6jPuiIRniCX ZbiU2pZKpwVhK0AKDsQjTj iX01iGRbSOpwPn8btRjcmB zzZD3lDWYj fkugy420WdCqt1rzJDYacE BgNVzqMUI1E98sq7V2XOJf WIHkPGK9aJD4qO2nmQrpai ogbGVmdDsg zbSsvXwdNMmzIZyrY001JS TndMhkHiIehIAeD0jrgkNB VY5eLmlgkRI+HZLuUHL0mI xlPSdwYWRk pB0dMSGrW1p7WnPjJqJ6PV koE8RjkeR4UJVhvPGfZPXt pXMMdZ3ldlbxp4tjbzcwLf AwMDAwMDt0 GNa5VNTstSrgTzKoKAB9Hs C3OJO7wGStkT9thOscxdsc fK0lOkr+RklOOjwvdGQ+PH GgRBM1gIva OOkjBEXvxJ6iOFJsH3n3Af EbMfS6AIydJ1DasdI9HLWm iVEtPUTndEUGxY4pjaiim3 xvcjogIzAw CXIpEDc2AJr3WZVerBbzSg JuHLQ2UtA7DDX8fIPsiB2t fJffebiccG2ePwj+TVJOOj wvdGQ+PHRk IGD0wRrvCQivJGMsbG5iUY XvO4f2YjEnUaY3ZUfyP7Yg fxH7GKLecXLlUPHmiVZPfK 5vyhphh7cg ivruSjRkBUOzVYe2EBt8NT OlmZztZtQcLON0FsV5KXY9 mBYahF3vxBgrkvegdJ9uNb c+YYS7GBY0 GI39DD78X9GiJoocmJAxvA U+PHRhYmxlIHdpZHRoPScx QNIuObIynFofSD3rRv7aCH VyLWNvbGxh cHNl (more content not included)... [facility] Coding Summary.on 04-15-2021 Coding Summary. CD:[id number] Gh 0bWw+PGhlYWQ+RI0APLRgA 18yrOQnbJ2FV5mSOU0CJSK WDTHZKN9SHQ2buVZ1FKanJ 2VybiAv AywayYLvAU89YJb6HTD5dQ dwPIdafB1cuSLnL5v6RaJf VI82sS73ATmiOBLtRnS5Uc ZpbjsgbWFy Y0mgWvGefEUtEki+PHRhYm xlIHdpZHRoPScxMDAlJyBz cDjeWM6nBv3gXTQuJVAdxX xhcHNlOiBj h2ajVANzRGopKR1mrFvyY8 LcpSU4UBTpu1k8Go42xXZ+ ARSjEOS5nQzpCAkct837Zh Ijh6geFMO4 mULsACrnIDC8X22xl7J9SJ KrFKBpLWG7oLN3lA9tcIiz yjtiI3CkxDIvVgS8MCX6zM XweM8qxRrm ipakiU0gHzf+H18PJI8JKO ONYQ8INho7K4YhFryqsOH+ RJ12PIBwLL91pLMsePPrq2 sblEq3IxQn EYCzRDG5mPvlMHwvd8XwZY ChK97hdAMjq0H5XVVakVnn sYDzWbJvvFT9xG3qROujfd igr9rgsnhh Yfssx9xjqg16lE37X48zLE cfWACjTPM0FQMlGVPntVhd vx5qvM5rQp9+HSwdt6dht6 dipZu1StKs SQOiarXaaBmtMME4t1YtPk 57I3EquXfjq6QsLhn9pq10 dKFnu6K6hOW0JDrwLMTvvK 5yEJibZjP4 OQSzYhTnjN52sEUbVHinGq 3ahZjngEfuDI2eFWPkyndr MULeqJ7oUQRfnUOzoKhbCN 4wNTBpbjtm b669HdUmEEC0PLUusXMkG2 SmwW0mCkJfYVAwGFLuU5Jo yKOeABkpT957WHbcFcQ3JG HduhRvQ6Mr CRKvdDjpSfC8c7O1Id1Kb6 DuxddgNYQ3DMjhKNAeOrB5 GyInToI6P4EoSxz0JPWqxV naCT7nE3Rg DQLfksbzxxtnwXA6DRLzXR MmoL24yEQhFQvdUw9fo9O6 b892DBKwBPHqjH78Mm2znJ ogMTBwdCBU lV2ifxmnr0qrqekrNpOyLD GtTOj2FBk1XYIonTuhGqQw LHA8DlP9IYJ6jQStzB7eyH hjkuyntM7t Oyc+V11qdA8wKYV2WRL1vv wuAWIxwyPlVR93XO42U0Tv PjwvdGFibGU+PGRpdiBzdH mjFW5nNnWc m8lak0VnTCrhM6SwVPZmKL ecZjw9PEYePAS5wNT2mB1n UQBbWMlrg9J1lYH3M6Hwla Feci7je4ni SGIjNJeqA56xmYRxw1O9MW TyqEI9BUXioXywXkIadO73 Oyc+KMYdrTgpb2UmWlhwh2 cut1brbVr1 MvEgXKUgysSvaJlfEFS4z7 VkOx27K89xPXzwKYVtEWUk ESPlEFCmiNejjc3ckE9bOh 8+PGNvbCB3 pGD1gQ5oYARjPzV8GFcyR3 00ThQowMUbZdvpo1gub2sw xBf0RoKsZJLetvTmjBnoHZ W1c6FiCz29 I17aLBbbGCXdHOEfVEMdFP UkmEpqab9urD8fMe9+PC9j g8xfza55yZ55vEC+PHRkIH F3nOgbHCzn LTYjpJ4oSZarWbH9FMHtDy OomB94iNErBCjsEw1utAwy zPhqFN4kCESccibgg394Dx Ogg3lsNDFj gUCyENrbPUI2L04lc7C8CP NyYGNoRVH9zOG7wR1sqIlt bjogbGVmdDsgdmVydGljYW cxYTxnT326 IHRvcDsnPlBhdGllbnQgTm EuQFk4O0UqMva0PEKmvCry CL7wxWFpCZjuZy2ivQxkvH kwTI6jGUGo rilfz266JcQor4nwOQLxsH MfBDygJTF2Q00qf7Q7IYAo TFWgCTW1fJW9vX5gsHbnzg ogbGVmdDsg xsZbiSyxPDfzZPkfZ239VF RvcDsnPkJpcnRoIERhdGU6 YF31SQ30nXHom5R7qNP6X0 BhZGRpbmct tscmrWL5VBImWQRrmU77Am 9rxXnaAi3pIWAuKDX8SHRz mKMbW4KguC9vPrUhYHKpHJ SvZ5AvhPHp RBtiC749RSkoEvG5YHYhcc YiI2WoEDEarQkxFfH9e0V2 In7LK7R4MU35QC45oYXjl6 Q1aKG7K2Fw ZQQmlplopbbmrTQ0ZYYlHE HkzT01Si0srRbhYm3zEHVi SAE7XUUbdTCgQ4LylQ5nUu AjMDAwMDAw C8RkkVFkVWqoM777BCplWr I5ZKWmwtNjJ9BxGHWbiSld KzB2u0U4Gd8TDYk0XM61BK 89uWKsf6J8 iWV0E5VeOWHfshxqbviiyL S2OZCySHTvsT33Ne4blVub Er9qOPVjVCI7MQNibAWxL1 GtcQ4hUdYa DPRqFNTeU3UhjXPaLLfkM6 01NOxeFdL7PQVlbrLjK3Eo PZQsgFqvNvC3z7X2Np0PFC RxIM11AON4 vEE5YY42PZ43E3KnRqgokO FibGU+PHRhYmxlIHdpZHRo OPgvCGJlLdExxJevBJ1yZf 9yZGVyLWNv fGpsoXWdIsSvr4qrFGRoXO zkPU0daZqcD7WbqEF3CAXp o7d1Xw06M54nH6BogAZ+PG RraJE5jSG1 jU0lEeUzWgS8NJtsY257Uq HbzJGkRptzo5dmq1urkKc3 ToZ5XBQvmjKcmAmrEOC9m5 RqAj63Y38b IHdpZHRoPSIxNSUiIHZhbG kcua8qpT3rMa4+PGNvbCB3 dXN7oL9fToJfQiC3TMbaI5 49InRvcCIv Tzrdi7pqq0wgvRm7KcEsDK YcsnDyzSejTRN2i5QhSk84 S3VtmMaqk6FmEiy1uo25kQ Xbq4F7bHP4 X5AhVHYrvpkorDNfbJfzIM 5jXGWdkrnkEYHeuW3mJSJf V3f7KpLtVtG7TQzlU9Dlqu L9SDDlzNFl ASavQTR0H69oo6V5LBObEX CgDBX6fSZ9iP5meQqyfgyt bGVmdDsgdmVydGljYWwtYW ckP594UJDj kYsvZTOicF3nBRLtqMLvdS vyLZ2tWSUskligKeUXM8iu IFNISVJMRVkgQTwvdGQ+PH MlLSR8uGaz TEzcEFLkxJ0gKNAfM8o0Kv VlNzF9OXtrT5GoAWMfhoha Di11aT8eKkFqAiN2TShcY3 HsqgG5PKSd xTXtHCgrUBV0W10zx9F1IJ NkPGUjVUK8iPE9mT1vsFfi bjogbGVmdDsgdmVydGljYW bmNXpdF127 SSLxsEeqGlTbJsF4EiS3QU G6W9QiJhi8DNMppAxuJU2j dOAaQOinXn5acOjgsSkeQQ 4wNTBpbjtw JWKibF8rFDRbhKCzzUdwTY 4eAPNgieqvi577OoWrNFU9 TTFeqRViD5QkcE8tRgWiFO JpILMsD5Qh jVOnXQoqV938PZnzHsR5MV VtgjYuZ4IhICVphRvtKtF8 i6K6Ys80ECEZLIVovphsuO Q+PHRkIHN0 nJwpMBvlWNDjpI6uLSRiW6 v2LoFgPwM3XRqnE2AjXJBv ievvOe73tQ2aYxKyLbY0LP weW3SwgoX3 YHUboIZvBMumMEP0U54fh2 J1TBItMSXtMAZ9lXQ3mQ3y bGlnbjogbGVmdDsgdmVydG ljYWwtYWxp D011ZFZbnXmoOqRrtGPiTV wvdGQ+JUStKAQ4rMlfEUhx KNSlvG6qHEEgO6h1TdFgAg R9NKhpQ7Fp WTRkkwzjOy27xN7uUtSxMu U0PHkuH0KiqlI6FXHutZLa QKspVWA1P64om3M0YLFmAR WaPIL6lFC6 bR3puTvjepuojQJzxDvqef DclHmtVOxrXWpmT930VRMw eOjtTv37jRHchAsdiuN7Q7 RkPjwvdHI+ IS31PGUcXK93cZKgaEIxm2 cznGo4UbCfBGMlVZC3eBxg GKzxm6KoPZFiU38feZAll6 E7JBBraGam pBWaQkUfnNH8hI6yRMuvke unc4vcmeccRlspy3uerz06 hU62Y81fIAasHJUcLHKfGR UiIHZhbGln xk0wzP0xNv2+TXTnkPT3aG C6hP1uAiIjQgC6THmxY329 XeKmtHKkIjxga9wbf0hudE s1RvYrEYJf qlKbdXxzWCL1s4QoRn57P8 9sIHdpZHRoPSIyMCUiIHZh iUhwqj0fhM2wHi3+PC9jb2 oily43dB97 dHI+YUAoKXF0kVjfGVuvDF FptS4yYPuzLtX3NZVeHlWo yF29jOClJLrnYb6znIuqaE daSX2dKUBp afoou324YpNdc9eoYWTgyF WeGYrkFYG0Y85sl8O0TIKh GYGgLLH8mNP5hH3vyLkrrn ogbGVmdDsg qlRkcFpjWWukKKjhX752TO HadByfAiEcdTKeD0jnscWW FZ8rObapxVR+TVOjOZI3fA xlPSdwYWRk pP0fOXDfK9s5VlCyXkO3BE voY5KtuyD6BGWbbMZvXAZi bTSWdQ8nlphwk3mnsltuFu AwMDAwMDt0 RSo3OOYrtCmcFyZoBFT5Rh P6YEJ8vVRkkA1rcSrxbkrn dT9gLjl+RklOOjwvdGQ+PH FpNTG7sChf EZqpZTJjuI7uODGgI0w0Al GcVpH1MKpcR2FxxdT7CIZn nAKdWHNjhMAKvV1eusauq1 xvcjogIzAw LDSbJOz6AZw0KSNkjDkzIx LjVSO7JiA5WGB3zFVazE6y mBhasnrriW8yUwe+TVJOOj wvdGQ+PHRk LYI8wOkfSCwzRQTfrS5zLA SlV7c6ReZtVhO5PKdrY5Bx zlZ3VBQvhRJhDCUpdRPEdY 9mxejdh9zq qhqtDvPqWUDnWNc3ATu0IP CkgDzzGcPgQEU8DvN8BMN5 bGLstR9vgKnrmteupO6qUs c+ATQ9ODK2 HI42ZT14V8BsIwjarTQveQ U+PHRhYmxlIHdpZHRoPScx AUKrGmSptOryKO3yDj7iVC VyLWNvbGxh cHNl (more content not included)... Normal [facility] XR Chest 2 Viewson XR Chest [...] M.D. Transcribed by: BACILIO Technologist: GAYE Normal [facility] Consent for Treatmenton 04-01 Consent for Treatment [id number]#1.0 0CD:127 Normal [facility] Pulmonary Function Testson 06-15-2020 Pulmonary Function Tests [id number]#1. 00CD:127 Normal [facility] Consent for Treatmenton Consent for Treatment [id number]#1.0 0CD:127 Normal [facility] Progress Note-Physicianon Progress Note-Physician [id number]#1. 00CD:127 Normal [facility] MRI BRAIN WO CONTRASTon 09-30 MRI [...] In Basket (authorizing provider) Final result Normal [facility] MRI BRAIN WO CONTRASTOrdered By: Rigoberto Molina on 10-17-2020 No acute ischemia or acute intracranial process. Generalized parenchymal volume loss and nonspecific white matter findings most compatible with chronic small vessel ischemic changes in a patient of this age. Nonspecific supratentorial signal abnormality most likely due to sequela of prior remote microhemorrhages. [employer] Phone: EXAM: MRI of the bra in [...] and bilateral mastoid air cells are clear. [employer] Phone: [place], po Incoming Radiant Results From [employer] - 10/17/2020 5:53 PM EDT EXAM: MRI [...] due to sequela of prior remote microhemorrhages. [facility]: [facility] Phone: Hemoglobin A1con 10-10-2020 HbA1c (Bld) [Mass fraction] 5.1 % Normal 4.8-5.9 [facility] Comment on above: Performed By: #### A 1C #### [facility] [address] [place] [address] CBC With Platelet and Differ entialon 10-09-2020 Basophils (Bld) [#/Vol] 0.0 10*3/uL Normal 0.0-0.2 [facility] Comment on above: Performed By: #### C BCWD #### [facility] [address] [place] [address] Basophils/100 WBC (Bld) 0.1 % Normal [facility] Comment on above: Performed By: #### C BCWD #### [facility] [address] [place] [address] Eosinophils (Bld) [#/Vol] 0.1 10*3/uL Normal 0.0-0.7 [facility] Comment on above: Performed By: #### C BCWD #### [facility] [address] [place] [address] Eosinophils/100 WBC (Bld) 0.7 % Normal [facility] Comment on above: Performed By: #### C BCWD #### [facility] [address] [place] [address] Erythrocyte distribution width (RBC) [Ratio] 13.0 % Normal 11.5-14.5 [facility] Comment on above: Performed By: #### C BCWD #### [facility] [address] [place] [address] Hematocrit (Bld) [Volume fraction] 34.8 % Low 37.0-47.0 [facility] Comment on above: Performed By: #### C BCWD #### [facility] [address] [place] [address] Hemoglobin (Bld) [Mass/Vol] 11.6 g/dL Low 12.0-16.0 [facility] Comment on above: Performed By: #### C BCWD #### [facility] [address] [place] [address] Lymphocytes (Bld) [#/Vol] 1.2 10*3/uL Normal 1.0-4.8 [facility] Comment on above: Performed By: #### C BCWD #### [facility] [address] [place] [address] Lymphocytes/100 WBC (Bld) 13.0 % Normal [facility] Comment on above: Performed By: #### C BCWD #### [facility] [address] [place] [address] MCH (RBC) [Entitic mass] 30.8 pg Normal 27.0-31.3 [facility] Comment on above: Performed By: #### C BCWD #### [facility] [address] [place] [address] MCHC 33.3 % Normal 33.0-37.0 [facility] Comment on above: Performed By: #### C BCWD #### [facility] [address] [place] [address] MCV (RBC) [Entitic vol] 92.5 fL Normal 82.0-100.0 [facility] Comment on above: Performed By: #### C BCWD #### [facility] [address] [place] [address] Monocytes (Bld) [#/Vol] 0.7 10*3/uL Normal 0.2-0.8 [facility] Comment on above: Performed By: #### C BCWD #### [facility] [address] [place] [address] Monocytes/100 WBC (Bld) 7.7 % Normal [facility] Comment on above: Performed By: #### C BCWD #### [facility] [address] [place] [address] Neutrophils (Bld) [#/Vol] 7.1 10*3/uL Critically high 1.4-6.5 [facility] Comment on above: Performed By: #### C BCWD #### [facility] [address] [place] [address] Neutrophils/100 WBC (Bld) 78.5 % Normal [facility] Comment on above: Performed By: #### C BCWD #### [facility] [address] [place] [address] Platelets (Bld) [#/Vol] 275 10*3/uL Normal 130-400 [facility] Comment on above: Performed By: #### C BCWD #### [facility] [address] [place] [address] RBC (Bld) [#/Vol] 3.76 10*6/uL Low 4.20-5.40 [facility] Comment on above: Performed By: #### C BCWD #### [facility] [address] [place] [address] WBC (Bld) [#/Vol] 9.1 10*3/uL Normal 4.8-10.8 [facility] Comment on above: Performed By: #### C BCWD #### [facility] [address] [place] [address] Comprehensive Metabolic Pane ke 10-09-2020 Albumin [Mass/Vol] 4.1 g/dL Normal 3.5-4.6 [facility] Comment on above: Performed By: #### C MP #### [facility] [address] [place] [address] ALP [Catalytic activity/Vol] 65 U/L Normal 40-130 [facility] Comment on above: Performed By: #### C MP #### [facility] [address] [place] [address] ALT [Catalytic activity/Vol] U/L Normal 0-33 [facility] Comment on above: Performed By: #### C MP #### [facility] [address] [place] [address] Anion gap [Moles/Vol] 14 mmol/L Normal 9-15 [facility] Comment on above: Performed By: #### C MP #### [facility] [address] [place] [address] AST [Catalytic activity/Vol] 17 U/L Normal 0-35 [facility] Comment on above: Performed By: #### C MP #### [facility] [address] [place] [address] Bilirubin [Mass/Vol] 0.4 mg/dL Normal 0.2-0.7 [facility] Comment on above: Performed By: #### C MP #### [facility] [address] [place] [address] Calcium [Mass/Vol] 9.7 mg/dL Normal 8.5-9.9 [facility] Comment on above: Performed By: #### C MP #### [facility] [address] [place] [address] Chloride [Moles/Vol] 100 mmol/L Normal 95-107 [facility] Comment on above: Performed By: #### C MP #### [facility] [address] [place] [address] CO2 [Moles/Vol] 25 mmol/L Normal 20-31 [facility] Comment on above: Performed By: #### C MP #### [facility] [address] [place] [address] Creatinine [Mass/Vol] 0.81 mg/dL Normal 0.50-0.90 [facility] Comment on above: Performed By: #### C MP #### [facility] [address] [place] [address] GFR >60.0 Normal >60 [facility] Comment on above: Result Comment: >60 mL/min/1.73m2 EGFR, calc. for ages 18 and older using the MDRD formula (not corrected for weight), is valid for stable renal function. Performed By: #### C MP #### [facility] [address] [place] [address] GFR/1.73 sq M.predicted among blacks MDRD (S/P/Bld) [Vol rate/Area] mL/min/{1.73_m2} Normal >60 [facility] Comment on above: Result Comment: >60 mL/min/1.73m2 EGFR, calc. for ages 18 and older using the MDRD formula (not corrected for weight), is valid for stable renal function. Performed By: #### C MP #### [facility] [address] [place] [address] Globulin (S) [Mass/Vol] 3.3 g/dL Normal 2.3-3.5 [facility] Comment on above: Performed By: #### C MP #### [facility] [address] [place] [address] Glucose [Mass/Vol] 125 mg/dL Critically high 70-99 [facility] Comment on above: Performed By: #### C MP #### [facility] [address] [place] [address] Potassium [Moles/Vol] 3.9 mmol/L Normal 3.4-4.9 [facility] Comment on above: Performed By: #### C MP #### [facility] [address] [place] [address] Protein [Mass/Vol] 7.4 g/dL Normal 6.3-8.0 [facility] Comment on above: Performed By: #### C MP #### [facility] [address] [place] [address] Sodium [Moles/Vol] 139 mmol/L Normal 135-144 [facility] Comment on above: Performed By: #### C MP #### [facility] [address] [place] [address] Urea nitrogen [Mass/Vol] 17 mg/dL Normal 8-23 [facility] Comment on above: Performed By: #### C MP #### [facility] [address] [place] [address] Lipid Panelon 10-09-2020 Cholesterol [Mass/Vol] 251 mg/dL Critically high 0-199 [facility] Comment on above: Result Comment: ATP III Cholesterol Classification is High. Performed By: #### L IPID #### [facility] [address] [place] [address] Cholesterol in HDL [Mass/Vol] 69 mg/dL Critically high 40-59 [facility] Comment on above: Result Comment: ATP III [...] CHD Performed By: #### L IPID #### [facility] [address] [place] [address] Cholesterol in LDL [Mass/Vol] 160 mg/dL Critically high 0-129 [facility] Comment on above: Result Comment: ATP III LDL Classification is High. Performed By: #### L IPID #### [facility] [address] [place] [address] Triglyceride [Mass/Vol] 108 mg/dL Normal 0-150 [facility] Comment on above: Result Comment: ATP III Triglycerides Classification is Normal. Performed By: #### L IPID #### [facility] [address] [place] [address] TSH w/Reflexon 10-09-2020 TSH w/Reflex 1.420 uIU/mL Normal 0.440-3.86 [facility] Comment on above: Performed By: #### T SHR #### [facility] [address] [place] [address] Vitamin B12 and Folateon Cobalamin (Vitamin B12) [Mass/Vol] 415 pg/mL Normal 232-1245 [facility] Comment on above: Performed By: #### B 12FO #### [facility] [address] [place] [address] Folate 11.7 ng/mL Normal 7.3-26.1 [facility] Comment on above: Result Comment: As o f 15, the methodology has changed. Results from this methodology should not be compared with results from previous methodology. Performed By: #### B 12FO #### [facility] [address] [place] [address] Vitamin Don 10-09-2020 Vitamin D 46.4 ng/mL Normal 30.0-100.0 [facility] Comment on above: Result Comment: (30- 100 ng/mL) Optimum Level This assay accurately quantifies the sum of vitamin D3, 25-Hydroxy and vitamin D2, 25-Hyroxy. Performed By: #### V ITD #### [facility] [address] [address] SURGICAL PATH REPORTon 10-02 SURGICAL PATH REPORT [facility] Department of Pathology [address] [place] [id number] Name: MYRANDA YANES : 1940 Financial [id number] Number: Gender: Female Location: [facility] Admit 80 years Attending SARKIS VALERO Age: Provider: Ordering SARKIS VALERO Provider: Consulting: Surgical Pathology Report ACCESSION: COLLECTED DATE/TIME: RECEIVED DATE/TIME: PATHOLOGIST: [id number] 09/25/2020 16:30 EDT 09/26/2020 12:22 EDT [facility] Final Diagnosis Report for [facility] [place] ILEOCOLIC RESECTION: - LOW GRADE APPENDICEAL [...] neoplasm Print Date10/02/2020 13:59 EDT Number: Time: [facility] Department of Pathology [address] [place] [id number] Name: MYRANDA YANES : 1940 Financial [id number] Number: Gender: Female Location: [facility] Admit 80 years Attending SARKIS VALERO Age: Provider: Ordering SARKIS VALERO Provider: Consulting: Surgical Pathology Report ACCESSION: COLLECTED DATE/TIME: RECEIVED DATE/TIME: PATHOLOGIST: [id number] 09/25/2020 16:30 EDT 09/26/2020 12:22 EDT [facility] Final Diagnosis Mesenteric Margin Uninvolved by appendiceal [...] Print Date/ 10/02/2020 13:59 EDT Number: Time: [facility] Department of Pathology [address] [place] [id number] Name: MYRANDA YANES : 1940 [facility] [id number] Number: Gender: Female Location: [facility] Admit 80 years Attending SARKIS VALERO Age: Provider: Ordering SARKIS VALERO Provider: Consulting: Surgical Pathology Report ACCESSION: COLLECTED DATE/TIME: RECEIVED DATE/TIME: PATHOLOGIST: [id number] 09/25/2020 16:30 EDT 09/26/2020 12:22 EDT [facility] Clinical Data PRE-OP DIAGNOSIS: Not specified POST-OP [...] measuring 4.2 x 2.5 x 1.5 cm. Rod Bending Machine Operator sections are submitted under the following designations: 1 - Proximal line of resection 2 - Distal line of resection 3-4 - Rod Bending Machine Operator sections of specimen from proximal to distal [...] node recovery (more content not included)... Normal [facility] Comment on above: Performed By: #### [id number] #### [facility] Laboratory Services [address] [place] [address] Primary Care Pediatrician: Figueroa Coto MD Encounters Encounter Date Encounter Type Care Provider Facility Start: 11-19-2022 End: 11-20-2022 ambulatory [facility] Start: 08-18-2022 End: 08-18-[address] WHITNEY GOODMAN . Facility:[facility] Start: 07-02-2022 End: 07-03-2022 ambulatory [facility] Start: 06-18-2022 End: 06-18-[address] WHITNEY GOODMAN . Facility:[facility] Start: 06-04-2022 End: 06-04-[address] WHITNEY GOODMAN . Facility:[facility] Start: 05-28-2022 End: 05-29-2022 ambulatory [facility] Start: 05-17-2022 End: 05-17-[address] WHITNEY GOODMAN . Facility:[facility] Start: 05-11-2022 Evaluation and manag ement of inpatient [facility] Start: 05-11-2022 Evaluation and manag ement of inpatient [facility] Start: 05-11-2022 Evaluation and manag ement of inpatient [facility] Start: 05-11-2022 Evaluation and manag ement of inpatient [facility] Start: 05-10-2022 Emergency department patient visit REMY RAMSAY [facility] Start: 05-10-2022 End: 05-12-2022 Evaluation and management of inpatient ANH ASHLEY [facility] Start: 05-10-2022 End: 05-10-[address] WHITNEY GOODMAN . Facility:[facility] Start: 04-06-2022 End: 04-07-[address] WHITNEY GOODMAN . Facility:[facility] Start: 03-30-2022 End: 03-31-2022 ambulatory GEORGE Lisset [facility] Start: 02-23-2022 End: 02-24-2022 ambulatory GEORGE Darling [facility] Start: 01-28-2022 End: 02-01-2022 Evaluation and management of inpatient DR WHITNEY GOODMAN . Facility:[facility] Start: 01-25-2022 End: 01-26-2022 ambulatory JASKARAN BEAL [facility] Start: 01-10-2022 End: 01-14-[address] WHITNEY GOODMAN . Facility:[facility] Start: 01-06-2022 End: 01-08-[address] WHITNEY GOODMAN . Facility: Start: 11-21-2021 End: 12-01-2021 Evaluation and management of inpatient WHITNEY GOODMAN Facility:[facility] Start: 11-21-2021 End: 11-21-[address] WHITNEY GOODMAN . Facility: Start: 11-06-2021 End: 11-12-2021 Evaluation and management of inpatient WHITNEY GOODMAN Facility:[facility] Start: 11-05-2021 End: 11-06-[address] WHITNEY GOODMAN . Facility: Start: 11-11-2020 End: 11-14-2020 ambulatory WHITNEY GOODMAN [facility] Start: 11-11-2020 End: 11-13-2020 Subsequent hospital visit by physician [facility] Schedule [facility] Comment on above: Arrived Start: 10-17-2020 End: 10-20-2020 ambulatory DOLORES CHAPA [facility] Start: 10-17-2020 End: 10-19-2020 Subsequent hospital visit by physician [facility] 2 [facility] MRI Comment on above: Cerebrovascular acci dent (CVA), unspecified mechanism (HCC); Memory problem; Parkinson's disease (HCC) Procedures Date Procedure Procedure Detail Performing Clinician Start: 11-21-2021 Antibody screen WHITNEY GOODMAN Comment on above: Performed By: #### 5 [id number] #### [facility] [address] Start: 11-06-2021 Antibody screen WHITNEY GOODMAN Comment on above: Performed By: #### 6 [id number] ####[facility] [address] Start: 10-17-2020 Mri brain brain stem w/o contrast material Dolores Chapa PA-C Work Phone: Start: 10-15-2020 H/O: surgery Laparoscopic s urgical procedure converted to open procedure [facility] Schedule Plan of Treatment Date Care Activity Detail Author Start: 10-09-2021 Creatinine measurement [facility] Phone: Start: 10-09-2021 Potassium monitoring Potassium monitoring [facility] Phone: Start: 12-31-2020 Influenza vaccination [facility] [employer] Phone: Start: 11-14-2020 End: 11-14-2020 Patient encounter procedure 11/14/2020 Office Visit Neurology Dolores Chapa PA-C [id number] [employer] [address] [facility] Start: 2007 Pneumococcal 65+ years Vaccine (1 of 1 - PPSV23) Pneumococcal 65+ years Vaccine (1 of 1 - PPSV23) [employer] Phone: Start: 1997 Screening for osteoporosis DEXA (modify frequency per FRAX score) [employer] Phone: Start: 1992 Shingles Vaccine (1 of 2) Shingles Vaccine (1 of 2) [employer] Phone: Start: 1961 DTaP/Tdap/Td vaccine (1 - Tdap) DTaP/Tdap/Td vaccine (1 - Tdap) [employer] Phone: Start: 1954 COVID-19 Vaccine (1) COVID-19 Vaccine (1) [employer] Phone: Start: 1940 Hepatitis C screening Hepatitis C screen [employer] Phone: Payers Date Payer Category Payer Medicare [id number] 1959 Private Health Insurance [id number] 1940 Unknown [id number] 2.16.8 [id number] 1940 Unknown [id number] 2.16.8 40.1.001001.3.579.2.182 1940 Unknown [id number] 2.16.8 40.1.503049.3.579.2.647 1940 Unknown [id number] 2.16.8 40.1.607226.3.579.2.647 1940 Unknown [id number] 2.16.84 0.1.084082.3.579.2.593 1940 Unknown [id number] 2.16.84 0.1.756023.3.579.2.593 1940 Unknown [id number] 2.16.84 0.1.697232.3.579.2.593 1940 Unknown [id number] 2.16.84 0.1.540557.3.579.2.593 1940 Unknown [id number] 2.16.84 0.1.851924.3.579.2.593 1940 Unknown [id number] 2.16.84 0.1.795419.3.579.2.593 1940 Unknown [id number] 2.16.84 0.1.611395.3.579.2.593 1940 Unknown [id number] 2.16.84 0.1.894144.3.579.2.593 1940 Unknown [id number] 2.16.84 0.1.410864.3.579.2.593 1940 Unknown [id number] 2.16.84 0.1.362603.3.579.2.593 1940 Unknown [id number] 2.16.84 0.1.035607.3.579.2.593 Social History Date Type Detail Facility Start: 10-09-2020 Tobacco smoking stat [facility] Unknown if ever smoked [employer] Phone: Start: 1940 Sex Assigned At Not on file [employer] Phone: Exposure to SARS-CoV -2 (event) Not sure [employer] Clinical Notes 06-12-2020 to 11-19-2022 Note Date [...] Date Anxiety COPD (chronic obstructive pulmonary disease) ([facility]) Dementia ([facility]) Dysphagia mechanical soft diet with nectar thick liquids and instruction to drink after each bite of food Femoral neck fracture ([facility]) 05/10/2022 right side GERD (gastroesophageal reflux disease) Hyperlipidemia Hypertension Parkinson's disease ([facility]) Objective General: There is no height or [...] questions/concerns. Renea Ortiz MD Orthopaedic Surgery PGY-2 [facility] 11/19/22 10:31 AM [facility] 07-02-2022 Note Subjective Chief complaint: Chief [...] Date Anxiety COPD (chronic obstructive pulmonary disease) ([facility]) Dementia ([facility]) Dysphagia mechanical soft diet with nectar thick liquids and instruction to drink after each bite of food Femoral neck fracture ([facility]) 05/10/2022 right side GERD (gastroesophageal reflux disease) Hyperlipidemia Hypertension Parkinson's disease ([facility]) Objective General: There is no height or [...] questions/concerns. Мария Pillai MD Orthopedic Surgery, PGY-2 [facility] By using the attestations below, the signing [...] additional personal documentation from me. [facility] 05-28-2022 Note Subjective Chief complaint: Chief [...] Date Anxiety COPD (chronic obstructive pulmonary disease) ([facility]) Dementia ([facility]) Dysphagia mechanical soft diet with nectar thick liquids and instruction to drink after each bite of food Femoral neck fracture ([facility]) 05/10/2022 right side GERD (gastroesophageal reflux disease) Hyperlipidemia Hypertension Parkinson's disease ([facility]) Objective General: Body mass index is 22.15 [...] questions/concerns. Мария Pillai MD Orthopedic Surgery, PGY-2 [facility] By using the attestations below, the signing [...] additional personal documentation from me. [facility] 05-12-2022 Note Spoke with pt's son this morning to inform of DC today. Son does not want pt to return to [facility]. [facility]. PT/OT recommends SNF, phoned and sent referral to [facility]. They will accept pt under [employer] Waiver and start precert. [facility] will transport pt at 6:30pm. Transfer packet done and AVS/DC orders sent. Skye NESBITT will call with report. Son will meet pt at [facility] this evening. [facility] 05-12-2022 Note PHYSICAL THERAPY NONI ANDERSONATION 05/12/22 1527 Time Calculation Start Time 1032 Stop Time 1049 Time Calculation (min) 17 min PT Evaluation Time Entry PT Evaluation (Moderate) Time Entry 17 History of Present Illness 81 y/o female presenting as transfer from [facility] for fall and R hip fracture. Per report, she fell at her alf and had right hip pain, she was [...] pain Pain Location Hip Pain Orientation Right;Left Brenda Scale (RS): Score (Min to moderate pain [...] Access Level entry Prior Function Level of [place] (independent prior to L hip fx in [...] mobility (more content not included)... [facility] 05-12-2022 Note Hospital Medicine Discharge Summary Final Discharge Diagnosis: #Traumatic fall: #Right femoral neck fracture s/p R hemiarthroplasty 05/11/21 #Hypertension: #Gastroesophageal reflux disease #Advanced dementia #History of severe anxiety Admission Diagnosis: Closed fracture of neck of right femur, initial encounter ([facility]) [S72.001A] Fall, initial encounter [W19.XXXA] Fall at home, sequela [W19.XXXS, Y92.009] Hospital course: 81 years old female lady with a medical history of hypertension, advanced vascular dementia, deafness type II, Parkinson disease, peripheral neuropathy, gastroesophageal reflux disease, hypothyroidism, ideation hours anxiety disorder, obstructive sleep apnea, thrombocytopenia unspecified, iron deficiency anemia. She came [facility] ED as a transfer from outside hospital /[facility] for fall and hip fracture and was [...] PCP after discharge. Dear Dr. Maxine MD, [place] is advised to follow up with you [...] adhesive tape-silicones, ciprofloxacin, oxycodone-acetaminophen, and sulfamethoxazole-trimethoprim. Disposition: Correction Facility Discharge Condition: Stable Code Status: Full [...] med-rec (more content not included)... [facility] 05-12-2022 Note Occupational Therapy Occupational Therapy Evaluation Patient Name: Myranda Yanse : 1940 Today's Date: 05/12/2022 Discharge Recommendation: SNF Myranda Yanes is a 81 y.o. female presenting with Hip Pain. This is a 81 years old female lady with a medical history of hypertension, advanced vascular dementia, deafness type II, Parkinson disease, peripheral neuropathy, gastroesophageal reflux disease, hypothyroidism, ideation hours anxiety disorder, obstructive sleep apnea, thrombocytopenia unspecified, iron deficiency anemia. She came into [facility] ED as a transfer from outside hospital /[facility] for fall and hip fracture. R hip [...] COPD (chronic obstructive pulmonary disease) (CMS/HCC) Dementia ([facility]/HCC) Dysphagia mechanical soft diet with nectar thick liquids and instruction to drink after each bite of food Femoral neck fracture (CMS/HCC) 05/10/2022 right side GERD (gastroesophageal reflux disease) Hyperlipidemia Hypertension Parkinson's disease ([facility]/HCC) Past Surgical History: Procedure Laterality Date HIP [...] Level of Function Prior Function Level of [place]: Independent with ADLs and functional transfers, Independent [...] promp (more content not included)... [facility] 05-12-2022 Note I reviewed the patie [...] female who sustained a fall at the alf that resulted in right femoral neck fracture, [...] kg (151 lb 14.4 oz) (05/11 1299) Harrold Coma Scale Score: 14 Intake/Output Summary (Last [...] female who presents after a fall at alf resulting in a right femoral neck fracture. Assessment/Plan Principal Problem: Fall at home, sequela Active Problems: Closed fracture of neck of right femur ([facility]) Plan: -Te (more content not included)... [facility] 05-12-2022 Note ------ Attestation signed by [...] -- (more content not included)... [facility] 05-12-2022 Note Patient: Myranda Connolly ick [...] has no apparent anesthesia complications [facility] 05-12-2022 Note Problem: Fall Risk Goal: LTG-No falls Outcome: Progressing The patient is Moderately Stable - Low risk of patient condition declining or worsening The patient's goals for the shift include comfort The clinical goals for the shift include VSS [facility] 05-11-2022 Note Patient: Myranda toussaint Procedure Summary Date: 05/11/22 Room / Location: [facility] OPERATING ROOM 02 / [facility] Operating Room Anesthesia Start: 1611 Anesthesia Stop: 1926 Procedure: Right femur hemiarthroplasty (Right: Thigh - Leg Upper) Diagnosis: Closed fracture of neck of right femur, initial encounter ([facility]) (Closed fracture of neck of right femur, initial encounter ([facility]) [S72.001A]) Surgeons: Carlie Shine MD Responsible Provider: Fito Garcia MD Anesthesia Type: general ASA Status: 3 [...] acceptable No notable events documented. [facility] 05-11-2022 Note Airway Date/Time: 05/11/2022 4:24 PM Urgency: elective General Information and Staff Patient location during procedure: OR Anesthesiologist: Fito Garcia MD Resident/REFUELER/CAA: Jose Martin Myers DO Performed: resident/REFUELER/CAA Indications and Patient Condition Indications for airway [...] of other approaches attempted: 0 [facility] 05-11-2022 Note Patient: Myranda toussaint Procedure Information Date/Time: 05/11/22 1615 Procedure: Right femur hemiarthroplasty (Right: Thigh - Leg Upper) Location: [facility] OPERATING ROOM 02 / [facility] Operating Room Surgeons: Carlie Shine MD [...] with attending. Additional Equipment Requests [facility] 05-11-2022 Note Attempted screen and unable to see due to pt being off unit. [facility] 05-11-2022 Note Hospital Medicine Daily Progress Note - 05/11/2022 9:48 AM; Room: [address] [place] [address] Admission: 05/10/2022 7:28 PM; Length of stay: 1 days THE HOSPITALIST TEAM PREFERS TO USE [employer] CHAT FOR COMMUNICATION 7AM-7PM. IF I DO NOT RESPOND WITHIN 15 MINUTES, PLEASE PAGE ME/CALL THROUGH THE [employer]. FROM 7PM-7AM, PLEASE PAGE [phone](COVR) Code Status: Full Code Discharge Destination: alf Expected Discharge: 3-5 days Overview Patient is [...] Closed fracture of neck of right femur ([facility]) Assessment and Plan #Traumatic fall: #Right femoral [...] LDL 148 05/10/2022 No results found for: [id number], IRON, TIBC, C3, C4, IASHWARYA, CANCA, ASO, PSA, CEA, CA125, CA199, AFP, [...] Additional (more content not included)... [facility] 05-11-2022 Note PHYSICAL THERAPY NONI CARNEY History of Present Illness 81 y/o female presenting as transfer from [facility] for fall and R hip fracture. Per report, she fell at her alf and had right hip pain, she was found on x-ray and CT at outside facility to have a right femoral neck fracture with no other injuries. Past Medical History Advanced vascular dementia, HTN, anxiety, COPD, GERD, L hip ORIF, L tibia IM nikhil, deafness, Parkinson's dz, peripheral neuropathy, hypothyroidism, LAURITA, thrombocytopenia. Current Diagnoses R femoral neck fracture Resident at [facility] Pt to have surgery for R femoral neck fracture. Will Attempt eval 05/12 as pt's medical status permits. Catalina Lemus PT, MPT [facility] Acute Rehabilitation [facility] 05-11-2022 Note Occupational Therapy Cancel Note Reason: Surgery pending: scheduled for R femur hemiarthroplasty this date Testing: Refused: Medically Unstable: Bed Rest: Dialysis: Awaiting clarification of precautions: Intubated/Sedated: Other: OT will re-attempt as able. [facility] 05-11-2022 Note Problem: Fall Risk Goal: LTG-No falls Outcome: Progressing The patient is Moderately Stable - Low risk of patient condition declining or worsening The patient's goals for the shift include comfort The clinical goals for the shift include Stable vital signs, comfort, and safety [facility] 05-11-2022 Note Pharmacy completed a medication reconciliation for Myranda Yanes. Patient is a 81 y.o. year old female. Patient has allergies to: Sulfa (sulfonamide antibiotics), Adhesive, Adhesive tape-silicones, Ciprofloxacin, Oxycodone-acetaminophen, and Sulfamethoxazole-trimethoprim Medication list was obtained from patient's nursing facility records ([facility]). Home medication list has been updated. Please call pharmacy with any questions. Thank you! Thanks, Elisha Painter, PharmD, 05/10/22 [facility] 03-30-2022 Note *[facility] Post-Op F/U Reported by patient. Location: left Associated Symptoms: no warmth; no ecchymosis; no drainage; no swelling; no fever; no chills [id number] IM LT TIBIA [id number] LT HIP NAIL DATE OF SURGERY: 11/06/2021 [...] initial encounter for closed fracture [facility] 02-23-2022 Note *[facility] Post-Op F/U Reported by patient. Location: left Associated Symptoms: no warmth; no ecchymosis; no drainage; no swelling; no fever; no chills [id number] IM LT TIBIA [id number] LT HIP NAIL DATE OF SURGERY: 11/06/2021 [...] initial encounter for closed fracture [facility] 02-23-2022 Note [facility] 01-25-2022 Note *[facility] Post-Op F/U Reported by patient. Location: left Associated Symptoms: no warmth; no ecchymosis; no drainage; no swelling; no fever; no chills [id number] IM LT TIBIA [id number] LT HIP NAIL DATE OF SURGERY: 11/06/2021 [...] initial encounter for closed fracture [facility] 12-13-2021 Note MR#: [id number] [facility] Pt. Name: Myranda Yanes Admitted: 11/21/2021 Discharged: 12/01/2021 Date of : 1940 Physician: Jaskaran Beal M.D. DISCHARGE SUMMARY PRIMARY DIAGNOSIS: Left tibial shaft fracture. HOSPITAL COURSE: Myranda is a 81-year-old female known well to the Orthopedic Trauma Service after recently undergoing a left hip cephalomedullary nail. The patient subsequently was at a custodial facility and fell and fractured her left [...] The patient was subsequently discharged back to custodial facility with appropriate DVT prophylaxis as well [...] Davis MD Date Trans: 12/13/2021 11:15 Lisset/lalo [id number] cc: Whitney Goodman M.D. [address] [id number] [facility] 11-13-2021 Note MR#: [id number] [facility] Pt. Name: Myranda Yanes Admitted: 11/06/2021 [...] Young MD Date Trans: 11/13/2021 04:04 P/mmo [id number] cc: Whitney Goodman M.D. [address], [facility] [place] [address] [facility] 11-09-2021 Note MR#: [id number] I [facility] Pt. Name: Myranda Yanes Admitted: 11/06/2021 [...] Arvizu MD Date Trans: 11/09/2021 10:53 A/lalo [id number]:[id number] cc: Whitney Goodman M.D. [address] [facility] [address] [facility] 04-06-2021 Note Chief Complaint New Patient - [...] (Rash) ciprofloxacin (Muscle weakness) sulfa drugs (Hives) [facility] Comment on above: Result Comment: Elec tronically Signed By: Kalpana ALDANA, Winston X\.br\Date and Time Signed: 04/06/21 17:14 EST 06-12-2020 Note Patient Outreach ([facility] VAMN) ------ MYRANDA YANES ([id number]) 1940 F Date Time Provider Department 06/12/20 MILA LEMUS During your visit today, we recorded the following information about you: Allergies As of Date: 06/12/2020 Noted Allergy Reaction SULFA (SULFONAMIDE ANTIBIOTICS) 06/23/2015 18 - Unknown Comments: She cannot reaction Date Reviewed: 01/08/2019 Reviewed by: Nataliia Adams Ma - Fully Assessed Order(s):SARS-COVID VACCINE 1ST DOSE APPT [[id number]] Order #: [id number] FUTURE Prescriptions as of 06/12/2020 Sig: PANTOPRAZOLE [...] 01/08/2019 Eczema [L30.9] 01/08/2019 Encounter Status:Closed by [employer], PRODUSER on 06/16/20 [facility] Evaluation note Diagnosis Cerebrovascular accident (CVA), unspecified mechanism (HCC) Memory problem Memory loss Parkinson's disease (HCC) Paralysis agitans documented in this encounter [facility] [employer] Phone: Summary Purpose Family History No Family [...] section and content) DATE CREATED AUTHOR 10/03/2020 [facility] DATE CREATED AUTHOR AUTHOR'S ORGANIZ ATION 10/11/2020 [facility] DATE CREATED AUTHOR AUTHOR'S ORGANIZ ATION 11/14/2020 [facility] DATE CREATED AUTHOR AUTHOR'S ORGANIZ ATION 05/26/2021 [facility] DATE CREATED AUTHOR AUTHOR'S ORGANIZ ATION 07/19/2021 [facility] DATE CREATED AUTHOR AUTHOR'S ORGANIZ ATION 12/29/2021 [facility] DATE CREATED AUTHOR AUTHOR'S ORGANIZ ATION 08/22/2022 [facility] DATE CREATED AUTHOR AUTHOR'S ORGANIZ ATION 11/20/2022 [facility] Reason for Visit (unrecogniz ed section and content) Status Reason Specialty Diagnoses / Procedures Referre d By Contact Referred To Contact Closed Radiology Diagnoses Cerebrovascular accident (CVA), unspecified mechanism (HCC) Memory problem Parkinson's disease (HCC) Procedures MRI BRAIN WO CONTRAST MRI BRAIN W WO CONTRAST Dolores Chapa PA-C [address] [facility] [address] [place] [id number] Status Reason Specialty Diagnoses / Procedures Re ferred By Contact Referred To Contact Closed Sleep Center Diagnoses Fatigue, unspecified type Procedures Baseline Diagnostic Sleep Study Dolores Chapa PA-C [address] [facility] [address] [place] [address] FOR RECORDS PERTAINING TO PATIENTS WHO ARE [...] BE BASED ON THE PRIMARY CLINICAL RECORDS. [employer] provides no warranty or guarantee of the accuracy or completeness of information in this document.
[2023-11-29 09:56] LABS: Estimated Average Glucose 103 mg/dL; Glycohemoglobin A1C 5.2 % (4.5-6.2)
== END 2023-11-29 09:00 | disposition home or self-care (01) ==
LOC: LAB 08:59
PROVIDERS: PCP Family Medicine; Visit Provider Family Medicine
DX: R73.09 Other abnormal glucose (principal)
CPT/HCPCS: 36415; 83036; 84132

== ENCOUNTER 2024-11-09 07:42 | Outpatient (REF) | payer MEDICARE, SELFPAY ==
--- OUTSIDE RECORDS SUMMARY | 2024-11-09 07:47 | XMS_ITS | CCD ---
Author Organization [facility] Care Team Providers Care Pediatric Critical Care Nurse Name Role Phone Whitney Goodman MD Primary Care Provider [phone] DOLORES CHAPA Referring Unavailable WHITNEY GOODMAN Primary Care Unavailable WHITNEY GOODMAN Primary Care Unavailable DOLORES CHAPA Referring Unavailable WHITNEY GOODMAN Primary Care Unavailable UNKNOWN, PHYSICIAN Referring Unavailable JULIETH YOUNG Attending Unavailable BINA MOSCOSO Admitting Unavailable WHITNEY GOODMAN Primary Care Unavailable EMERGENCY, BELLUE Referring Unavailable YANICK HEALY Admitting Unavailable YANICK [...] Unavailable PAY ., DR BECKER Consulting Unavailable CHRISTINA .TOMASA Consulting Unavailable HOY ., DR OLSON Primary [...] Acetaminophen / oxyCODONE Drug Allergy 09-25-19 21 [facility] Adhesive Tape (2 sources) Adhesive Tape Substance Allergy 10-10-19 21 [facility] Quinolones (antibiotic) (2 sources) Ciprofloxacin Drug Allergy 10-10-19 21 Other (See Comments) [facility] Sulfamethoxazole / Trimethoprim (2 sources) Sulfamethoxazole / Trimethoprim Drug Allergy 10-10-19 21 [facility] Sulfonamides (antibiotic) (2 sources) Sulfonamides (Antibiotic) Drug Allergy 10-10-19 21 [facility] (2 sources) Acetaminophen / oxyCODONE Drug Allergy 09-25-19 21 [facility] Repository (3 sources) Adhesive agent; Translations: [ADHESIVE] Drug allergy (disorder) 06-11-19 14 [facility] Repository (2 sources) Ciprofloxacin Drug Allergy 09-29-19 17 [facility] Repository (2 sources) Penicillin Drug Allergy 11-22-19 22 [facility] Repository (2 sources) Sulfonamides (Antibiotic) Drug allergy (disorder) 12-21-19 12 [facility] Repository (1 source) Acetaminophen / oxyCODONE; Translations: [OXYCODONE-ACETAMIN OPHEN] Drug Allergy 09-25-19 21 [facility] Repository (1 source) Ciprofloxacin; Translations: [CIPROFLOXACIN] Drug Allergy 10-10-19 21 [facility] Repository (1 source) Sulfamethoxazole / Trimethoprim; Translations: [SULFAMETHOXAZOLE-T RIMETHOPRIM] Drug Allergy 10-10-19 21 [facility] Repository (1 source) Sulfonamides (Antibiotic); Translations: [SULFA (SULFONAMIDE ANTIBIOTICS)] Propensity to adverse reactions to drug (disorder) 04-19-20 14 [facility] Repository (1 source) ADHESIVE TAPE-SILICONES; Translations: [ADHESIVE TAPE-SILICONES] Propensity to adverse reactions to drug (disorder) 10-10-19 21 [facility] Repository NEGATED: Highlighted row has been ruled out!Unclassified (2 sources) Other Propensity to adverse reactions 06-23-19 16 Rash, Other (See Comments) [facility] Medications Current Medications Medication Drug Class(es) Dates [...] hydrochloride 5 mg oral tablet (1 source) M-cwlzlc-I-aspartate Receptor Antagonist Start: 10-20-2020 take 1 tablet [...] current use of drug therapy; Translations: [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] Onset: 10-15-2020 11-13-2020 Episodic [...] aftercare (1 source) Polypharmacy ; Translations: [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] Onset: 9 11-05-2020 Episodic Other aftercare (1 source) 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; Translations: [OTH [facility] CURRENT [...] Interpretation Reference Range Facility Follow-Upon 11-19-2022 Follow-Up [id number] Fausto Yanes 1940 F Date Provider Department Center 11/19/2022 CARLIE MITCHELL MP ORTHO MPORTHO Family History Family history unknown: Yes Level of Service:66820 [place] OFFICE/OUTPATIENT ESTABLISHED LOW MDM 20-29 MIN (GC) Reason for Visit and Comments: Follow-up [782385] Follow-up [309173] Normal [facility] 36on 10-26-2022 36 Lvm to call office back to reschedule appointment on 11/12/2022- please schedule on 11/19/2022 Normal [facility] CULTURE URINEon 08-20-2022 CULTURE URINE Normal [facility] Comment on above: Performed By: #### U RCX ####[facility] [address] [place], [place] [address]Dr. Arnoldo Taylor UA (CLEAN/CATCH) MORTGAGE SERVICING SPECIALIST/MICRO I F IND.on 08-18-2022 Bilirubin Ql (U) Negative Normal NEGATIVE [facility] Comment on above: Performed By: #### U MICRO, UACSIND ####[facility] Gbtim[address] [place], [place] [address]DrTye Taylor Clarity (U) CLEAR Normal CLEAR [facility] Comment on above: Performed By: #### U MICRO, UACSIND ####[facility] [address] [place] [address]Dr. Arnoldo Taylor Color (U) LT. YELLOW Normal YELLOW [facility] Comment on above: Performed By: #### U MICRO, UACSIND ####[facility] [address] [place] [address]Dr. Arnoldo Taylor Glucose Ql (U) Negative Normal NEGATIVE [facility] Comment on above: Performed By: #### U MICRO, UACSIND ####[facility] Dw[address]mmz[address]os[address] [place], [place] [address]Dr. Arnoldo Taylor Hemoglobin Ql (U) TRACE-INTACT Abnormal NEGATIVE [facility] Comment on above: Performed By: #### U MICRO, UACSIND ####[facility] Axwsthgafi[address] [place], [place] [address]Dr. Arnoldo Taylor Ketones Ql (U) Negative Normal NEGATIVE [facility] Comment on above: Performed By: #### U MICRO, UACSIND ####[facility] N[address]eb[address]umv[address] [place], [place] [address]Dr. Arnoldo Taylor LEUKOCYTES LARGE Abnormal NEGATIVE [facility] Comment on above: Performed By: #### U MICRO, UACSIND ####[facility] I[address]wfmfjbz[address] [place], [place] [address]Dr. Arnoldo Taylor Nitrite Ql (U) Positive Abnormal NEGATIVE [facility] Comment on above: Performed By: #### U MICRO, UACSIND ####[facility] Cteugjcwbx[address] [place], [place] [address]Dr. Arnoldo Taylor pH (U) 5.5 [pH] Normal 5-9 [facility] Comment on above: Performed By: #### U MICRO, UACSIND ####[facility] Qufwehgove[address] [place], [place] [address]Dr. Arnoldo Taylor SPEC GRAVITY 1.010 Normal 1.005-<=1.025 [facility] Comment on above: Performed By: #### U MICRO, UACSIND ####[facility] Alrdovrybv[address] [place], [place] [address]Dr. Arnoldo Taylor UA PROTEIN Negative Normal NEGATIVE/ TRACE [facility] Comment on above: Performed By: #### U MICRO, UACSIND ####[facility] [address]til[address] [place] [address]Dr. Arnoldo Taylor UR MICRO IND INDICATED Normal [facility] Comment on above: Performed By: #### U MICRO, UACSIND ####[facility] [address] [place] [address]Dr. Arnoldo Taylor Urobilinogen Qn (U) 0.2 {Adrienne'U}/dL Normal 0.2 - 1. 0 [facility] Comment on above: Performed By: #### U MICRO, UACSIND ####[facility] B[address]ss[address]vp[address] [place], [place] [address]Dr. Arnoldo Taylor URINE MICROSCOPIC ONLYon BACTERIA SMALL Abnormal NONE SEEN [facility] Comment on above: Performed By: #### U MICRO, UACSIND ####[facility] Brk[address]ldzpt[address] [place], [place] [address]Dr. Arnoldo Taylor Bacteria identified Cx Nom (U) INDICATED Normal [facility] Comment on above: Performed By: #### U MICRO, UACSIND ####[facility] Nsmvydxoiv[address] [place], [place] [address]Dr. Arnoldo Taylor CAST NONE SEEN Normal NONE SEEN [facility] Comment on above: Performed By: #### U MICRO, UACSIND ####[facility] Iifquwixml[address] [place], [place] [address]Dr. Arnoldo Taylor Crystals LM Nom (Urine sed) NONE SEEN Normal NONE SEEN [facility] Comment on above: Performed By: #### U MICRO, UACSIND ####[facility] Pvdkxfcaqe[address] [place], [place] [address]Dr. Arnoldo Taylor Epithelial cells LM Ql (Urine sed) FEW Abnormal NONE SEEN /RARE [facility] Comment on above: Performed By: #### U MICRO, UACSIND ####[facility] [address] [place] [address]Dr. Arnoldo Taylor MUCOUS NONE SEEN Normal NONE SEEN [facility] Comment on above: Performed By: #### U MICRO, UACSIND ####[facility] [address]wo[address] [place], [place] [address]Zo. Arnoldo Taylor RBC 0-2 Normal 0-2 [facility] Comment on above: Performed By: #### U MICRO, UACSIND ####[facility] [address] [place] [id number]. Arnoldo Taylor WBC 5-10 Abnormal NONE SEEN [facility] Comment on above: Performed By: #### U MICRO, UACSIND ####[facility] [address] [place] [id number]. Arnoldo Taylor Follow-Upon 07-02-2022 Follow-Up [id number] Fausto Yanes 1940 F Date Provider Department Center 07/02/2022 CARLIE MITCHELL MP ORTHO MPORTHO Family History Family history unknown: Yes Level of Service:30046 [place] POSTOP FOLLOW UP VISIT RELATED TO ORIGINAL PX Reason for Visit and Comments: Follow-up [210652] Follow-up [797428] - Older injury that is bothering her more than her newer left hip surgery. Normal [facility] CBC AUTO DIFFon 06-18-2022 BASO # 0.0 103/ul Normal 0.0-0.1 [facility] Comment on above: Performed By: #### C BC ####[facility] [address] [place] [id number]. Arnoldo Taylor Basophils/100 WBC (Bld) 0.1 % Critically low 0.2-2.0 [facility] Comment on above: Performed By: #### C BC ####[facility] [address] [place] [id number]. Arnoldo Taylor EO # 0.2 103/ul Normal 0.0-0.7 [facility] Comment on above: Performed By: #### C BC ####[facility] [address] [place] [id number]. Arnoldo Taylor Eosinophils/100 WBC (Bld) 2.4 % Normal 0.9-7.0 [facility] Comment on above: Performed By: #### C BC ####[facility] [address] [place] [address]Dr. Arnoldo Taylor Erythrocyte distribution width (RBC) [Ratio] 13.7 % Normal 11.0-15.0 [facility] Comment on above: Performed By: #### C BC ####[facility] M[address]psrc[address] [place], [place] [address]Dr. Arnoldo Taylor Hematocrit (Bld) [Volume fraction] 32.7 % Critically low 36.0-48.0 [facility] Comment on above: Performed By: #### C BC ####[facility] X[address]ubhq[address] [place], [place] [address]Dr. Arnoldo Taylor Hemoglobin (Bld) [Mass/Vol] 10.5 g/dL Critically low 12.0-16.0 [facility] Comment on above: Performed By: #### C BC ####[facility] Y[address]ql[address]ze[address] [place], [place] [address]Dr. Arnoldo Taylor IG # 0.02 10e3/ul Normal 0.00-0.03 [facility] Comment on above: Performed By: #### C BC ####[facility] W[address]njvlx[address] [place], [place] [address]Dr. Arnoldo Taylor IG % 0.3 % Normal 0.0-0.5 [facility] Comment on above: Performed By: #### C BC ####[facility] Z[address]hb[address] [place], [place] [address]Dr. Arnoldo Taylor LYMPH # 2.1 103/ul Normal 1.2-3.8 [facility] Comment on above: Performed By: #### C BC ####[facility] Y[address]ygpfnvv[address] [place], [place] [address]Dr. Arnoldo Taylor Lymphocytes/100 WBC (Bld) 31.5 % Normal 20.5-60.0 [facility] Comment on above: Performed By: #### C BC ####[facility] Yekvuweqik[address] [place], [place] [address]Dr. Arnoldo Taylor MANUAL DIFF REQ NO Normal [facility] Comment on above: Performed By: #### C BC ####[facility] [address] [place] [address]Dr. Arnoldo Taylor MCH (RBC) [Entitic mass] 30.0 pg Normal 26.7-34.0 [facility] Comment on above: Performed By: #### C BC ####[facility] [address]mzhdratwg[address] [place] [address]Dr. Arnoldo Taylor MCHC (RBC) [Mass/Vol] 32.1 g/dL Normal 29.9-35.2 [facility] Comment on above: Performed By: #### C BC ####[facility] X[address]cmb[address] [place], [place] [address]Dr. Arnodlo Taylor MCV (RBC) [Entitic vol] 93.4 fL Normal 81.0-99.0 [facility] Comment on above: Performed By: #### C BC ####[facility] Oklelbljye[address] [place], [place] [address]Dr. Arnoldo Taylor MONO # 0.8 103/ul Normal 0.3-0.8 [facility] Comment on above: Performed By: #### C BC ####[facility] Bjiejpgqmn[address] [place], [place] [address]Dr. Arnoldo Taylor Monocytes/100 WBC (Bld) 12.3 % Critically high 1.7-12.0 [facility] Comment on above: Performed By: #### C BC ####[facility] H[address]wsseuif[address] [place], [place] [address]Dr. Arnoldo Taylor NEUT # 3.6 103/ul Normal 1.4-6.5 [facility] Comment on above: Performed By: #### C BC ####[facility] Budllvzyhr[address] [place], [place] [address]Dr. Arnoldo Taylor Neutrophils/100 WBC (Bld) 53.4 % Normal 43.0-75.0 [facility] Comment on above: Performed By: #### C BC ####[facility] G[address]fltdwto[address] [place], [place] [address]Dr. Arnoldo Taylor Platelet mean volume (Bld) [Entitic vol] 8.9 fL Critically low 9.5-13.5 [facility] Comment on above: Performed By: #### C BC ####[facility] [address] [place] [address]Dr. Arnoldo Taylor PLT 214 103/ul Normal 150-450 [facility] Comment on above: Performed By: #### C BC ####[facility] Pvu[address]acex[address] [place] [address]Dr. Arnoldo Taylor RBC 3.50 106/ul Critically low 4.20-5.40 [facility] Comment on above: Performed By: #### C BC ####[facility] Pdhxranchm[address] [place] [address]Dr. Arnoldo Taylor WBC 6.7 103/ul Normal 4.0-11.0 [facility] Comment on above: Performed By: #### C BC ####[facility] [address]ses[address] [place] [address]Dr. Arnoldo Taylor FREE T3on 06-18-2022 FREE T3 1.89 pg/mlL Critically low 2.18-3.98 [facility] Comment on above: Performed By: #### F T3, T4, TSH, BMP ####[facility] Q[address]pdjvbz[address] [place] [address]Dr. Arnoldo Taylor PROF CHEM 8 (BAS METB)on Anion gap [Moles/Vol] 11.5 mmol/L Normal [facility] Comment on above: Performed By: #### F T3, T4, TSH, BMP ####[facility] E[address]ht[address]mh[address] [place] [address]Dr. Arnoldo Taylro Calcium [Mass/Vol] 8.9 mg/dL Normal 8.5-10.1 [facility] Comment on above: Performed By: #### F T3, T4, TSH, BMP ####[facility] Vfvuieacry[address] [place] [address]Dr. Arnoldo Taylor Chloride [Moles/Vol] 107 mmol/L Normal 98-107 [facility] Comment on above: Performed By: #### F T3, T4, TSH, BMP ####[facility] Zsjuquaipf[address] [place] [address]Dr. Arnoldo Taylor CO2 [Moles/Vol] 30.5 mmol/L Normal 21.0-32.0 [facility] Comment on above: Performed By: #### F T3, T4, TSH, BMP ####[facility] Hefasoavjd[address] [place] [address]Dr. Arnoldo Taylor Creatinine [Mass/Vol] 0.87 mg/dL Normal 0.55-1.02 [facility] Comment on above: Performed By: #### F T3, T4, TSH, BMP ####[facility] Sliserphvk[address] [place], [place] [address]Dr. Arnoldo Taylor EGFR-AF LIBYAN >60 Normal >=60 [facility] Comment on above: Performed By: #### F T3, T4, TSH, BMP ####[facility] Iiuiacwcqo[address] [place], [place] [address]Dr. Arnoldo Taylor EGFR-NON AF LIBYAN >60 Normal >=60 [facility] Comment on above: Performed By: #### F T3, T4, TSH, BMP ####[facility] Qdlzoquawp[address] [place], [place] [address]Dr. Arnoldo Taylor Glucose [Mass/Vol] 91 mg/dL Normal 74-106 [facility] Comment on above: Performed By: #### F T3, T4, TSH, BMP ####[facility] Rqqnbjkmjq44[address] [place] [address]Dr. Arnoldo Taylor Potassium [Moles/Vol] 3.0 mmol/L Critically low 3.5-5.1 [facility] Comment on above: Performed By: #### F T3, T4, TSH, BMP ####[facility] Jngdeaemxs[address] [place], [place] [address]Dr. Arnoldo Taylor Sodium [Moles/Vol] 146 mmol/L Critically high 136-145 [facility] Comment on above: Performed By: #### F T3, T4, TSH, BMP ####[facility] T[address]cnjxujie[address] [place], [place] [address]Dr. Arnoldo Taylor Urea nitrogen [Mass/Vol] 13.0 mg/dL Normal 7.0-18.0 [facility] Comment on above: Performed By: #### F T3, T4, TSH, BMP ####[facility] Hwoygfnjjz[address] [place], [place] [address]Dr. Arnoldo Taylor Urea nitrogen/Creatinine [Mass ratio] 14.9 mg/mg Normal [facility] Comment on above: Performed By: #### F T3, T4, TSH, BMP ####[facility] Qylnokvqiz[address] [place], [place] [address]Dr. Arnoldo Tayolr T4on 06-18-2022 T4 [Mass/Vol] 9.30 ug/dL Normal 4.80-13.90 [facility] Comment on above: Performed By: #### F T3, T4, TSH, BMP ####[facility] Ncpeooauda[address] [place], [place] [address]Dr. Arnoldo Taylor TSHon 06-18-2022 TSH 1.387 uIU/mL Normal 0.358-3.740 [facility] Comment on above: Performed By: #### F T3, T4, TSH, BMP ####[facility] V[address]aiwxwlcj[address] [place], [place] [address]Dr. Arnoldo Brandon CULTURE URINEon 06-04-2022 CULTURE URINE Isolate 1 Ashlyn glabrata 75,000 cfu/mL of Normal [facility] Comment on above: Performed By: #### U RCX ####[facility] [address]ses[address] [place], [place] [address]Dr. Arnoldo Taylor UA (CLEAN/CATCH) MORTGAGE SERVICING SPECIALIST/MICRO I F IND.on 06-04-2022 Bilirubin Ql (U) Negative Normal NEGATIVE [facility] Comment on above: Performed By: #### U ACSCRYSTAL UMICRO ####[facility] Tomurzbzsp[address] [place], [place] [address]Dr. Arnoldo Taylor Clarity (U) CLEAR Normal CLEAR [facility] Comment on above: Performed By: #### U ACSCRYSTAL UMICRO ####[facility] S[address]rxyrsfn[address] [place], [place] [address]Dr. Arnoldo Taylor Color (U) LT. YELLOW Normal YELLOW [facility] Comment on above: Performed By: #### U ACSCRYSTAL UMICRO ####[facility] Z[address]pshz[address] [place] [address]Dr. Arnoldo Taylor Glucose Ql (U) Negative Normal NEGATIVE [facility] Comment on above: Performed By: #### U ACSIND, UMICRO ####[facility] Ftddcdgnfk[address] [place], [place] [address]Dr. Lynettesujata Brandon Hemoglobin Ql (U) Negative Normal NEGATIVE [facility] Comment on above: Performed By: #### U ACSIND, UMICRO ####[facility] Xauxpeiumj[address] [place], [place] [address]Dr. Arnoldo Taylor Ketones Ql (U) Negative Normal NEGATIVE [facility] Comment on above: Performed By: #### U ACSIND, UMICRO ####[facility] D[address]uykqogk[address] [place], [place] [address]Dr. Arnoldo Taylor LEUKOCYTES SMALL Abnormal NEGATIVE [facility] Comment on above: Performed By: #### U ACSCRYSTAL, UMICRO ####[facility] Qnckkupgvf[address] [place], [place] [address]Dr. Arnoldo Taylor Nitrite Ql (U) Negative Normal NEGATIVE [facility] Comment on above: Performed By: #### U ACSCRYSTAL, UMICRO ####[facility] Ocbccymvht[address] [place], [place] [address]Dr. Arnoldo Taylor pH (U) 6.0 [pH] Normal 5-9 [facility] Comment on above: Performed By: #### U ACSIND, UMICRO ####[facility] Vudpocteuw[address] [place], [place] [address]Dr. Arnoldo Taylor SPEC GRAVITY 1.010 Normal 1.005-<=1.025 [facility] Comment on above: Performed By: #### U ACSIND, UMICRO ####[facility] [address]imhstqn[address] [place], [place] [address]Dr. Arnoldo Taylor UA PROTEIN Negative Normal NEGATIVE/ TRACE [facility] Comment on above: Performed By: #### U ACSIND, UMICRO ####[facility] [address]offdkxoyc[address] [place], [place] [address]Dr. Arnoldo Taylor UR MICRO IND INDICATED Normal [facility] Comment on above: Performed By: #### U ACSIND, UMICRO ####[facility] [address]uf[address] [place] [address]Dr. Arnoldo Taylor Urobilinogen Qn (U) 0.2 {Adrienne'U}/dL Normal 0.2 - 1. 0 [facility] Comment on above: Performed By: #### U ACSIND, UMICRO ####[facility] [address]jbnfv[address] [place] [address]Dr. Arnoldo Brandon URINE MICROSCOPIC ONLYon BACTERIA TRACE Abnormal NONE SEEN [facility] Comment on above: Performed By: #### U ACSCRYSTAL, UMICRO ####[facility] V[address]lnmxxxop[address] [place] [address]Dr. Lynettesujata Taylor Bacteria identified Cx Nom (U) INDICATED Normal [facility] Comment on above: Performed By: #### U ACSCRYSTAL, UMICRO ####[facility] [address]ed[address]jp[address] [place], [place] [address]Dr. Arnoldo Taylor CAST NONE SEEN Normal NONE SEEN [facility] Comment on above: Performed By: #### U ACSCRYSTAL, UMICRO ####[facility] [address]zuukmqxtr[address] [place], [place] [address]Dr. Arnoldo Brandon Crystals LM Nom (Urine sed) NONE SEEN Normal NONE SEEN [facility] Comment on above: Performed By: #### U ACSCRYSTAL, UMICRO ####[facility] [address]zeuectqqb[address] [place], [place] [address]Dr. Arnoldo Taylor Epithelial cells LM Ql (Urine sed) FEW Abnormal NONE SEEN /RARE [facility] Comment on above: Performed By: #### U ACSCRYSTAL, UMICRO ####[facility] E[address]bzjxgdv[address] [place], [place] [address]Dr. Arnoldo Taylor MUCOUS NONE SEEN Normal NONE SEEN [facility] Comment on above: Performed By: #### U ACSIND, UMICRO ####[facility] X[address]qcb[address] [place] [address]Dr. Arnoldo Taylor RBC 0-2 Normal 0-2 [facility] Comment on above: Performed By: #### U ACSIND, UMICRO ####[facility] [address]ijyou[address] [place], [place] [address]Iy. Lynettesujata Taylor WBC 10-20 Abnormal NONE SEEN [facility] Comment on above: Performed By: #### U JESSICA CLEANING ####[facility] [address]fr[address]xgu[address] [place] [id number]. Arnoldo Taylor YEAST PRESENT Abnormal NONE SEEN [facility] Comment on above: Performed By: #### U CHARLY CLEANINGRO ####[facility] V[address]jtkn[address]oy[address] [place] [id number]. 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 Pat nurse said PCP has already been advised and she is not sure who called. Normal [facility] CBC AUTO DIFFon 05-17-2022 BASO # 0.0 103/ul Normal 0.0-0.1 [facility] Comment on above: Performed By: #### C BC ####[facility] [address]rgqe[address] [place] [address]Dr. Arnoldo Taylor Basophils/100 WBC (Bld) 0.1 % Critically low 0.2-2.0 [facility] Comment on above: Performed By: #### C BC ####[facility] B[address]yyze[address] [place] [id number]. Arnoldo Taylor EO # 0.2 103/ul Normal 0.0-0.7 [facility] Comment on above: Performed By: #### C BC ####[facility] Wzbqyczxqk4[address] [place] [id number]. Arnoldo Taylor Eosinophils/100 WBC (Bld) 2.0 % Normal 0.9-7.0 [facility] Comment on above: Performed By: #### C BC ####[facility] X[address]evpttdti[address] [place] [address]Dr. Arnoldo Taylor Erythrocyte distribution width (RBC) [Ratio] 14.5 % Normal 11.0-15.0 [facility] Comment on above: Performed By: #### C BC ####[facility] Ghbmmdhqxu[address] [place] [address]Dr. Arnoldo Taylor Hematocrit (Bld) [Volume fraction] 26.2 % Critically low 36.0-48.0 [facility] Comment on above: Performed By: #### C BC ####[facility] [address]rdfcycr[address] [place], [place] [address]Dr. Arnoldo Taylor Hemoglobin (Bld) [Mass/Vol] 8.4 g/dL Critically low 12.0-16.0 [facility] Comment on above: Performed By: #### C BC ####[facility] X[address]vo[address]zx[address] [place], [place] [address]DrTye Arnoldo Taylor IG # 0.05 10e3/ul Critically high 0.00-0.03 [facility] Comment on above: Performed By: #### C BC ####[facility] Bbniczuoac147701 [address] [place], [place] [address]Dr. Arnoldo Taylor IG % 0.5 % Normal 0.0-0.5 [facility] Comment on above: Performed By: #### C BC ####[facility] [address] [place], [place] [address]DrTye Arnoldo Taylor LYMPH # 2.0 103/ul Normal 1.2-3.8 [facility] Comment on above: Performed By: #### C BC ####[facility] [address] [place], [place] [address]DrTye Arnoldo Brandon Lymphocytes/100 WBC (Bld) 20.9 % Normal 20.5-60.0 [facility] Comment on above: Performed By: #### C BC ####[facility] G[address] [place], [place] [address]DrTye Lynettesujata Taylor MANUAL DIFF REQ NO Normal [facility] Comment on above: Performed By: #### C BC ####[facility] [address] [place] [id number]. Arnoldo Brandon MCH (RBC) [Entitic mass] 29.8 pg Normal 26.7-34.0 [facility] Comment on above: Performed By: #### C BC ####[facility] Gfzuz[address]inl[address] [place] [id number]. Arnoldo Taylor MCHC (RBC) [Mass/Vol] 32.1 g/dL Normal 29.9-35.2 [facility] Comment on above: Performed By: #### C BC ####[facility] [address] [place] [address]Dr. Arnoldo Taylor MCV (RBC) [Entitic vol] 92.9 fL Normal 81.0-99.0 [facility] Comment on above: Performed By: #### C BC ####[facility] [address] [place], [place] [address]DrTye Taylor MONO # 1.2 103/ul Critically high 0.3-0.8 [facility] Comment on above: Performed By: #### C BC ####[facility] Rnpyjvkaur[address] [place], [place] [address]Dr. Arnoldo Taylor Monocytes/100 WBC (Bld) 12.0 % Normal 1.7-12.0 [facility] Comment on above: Performed By: #### C BC ####[facility] [address] [place], [place] [address]Dr. Arnoldo Taylor NEUT # 6.2 103/ul Normal 1.4-6.5 [facility] Comment on above: Performed By: #### C BC ####[facility] [address] [place], [place] [address]DrTye Taylor Neutrophils/100 WBC (Bld) 64.5 % Normal 43.0-75.0 [facility] Comment on above: Performed By: #### C BC ####[facility] Xsevtkijhe[address] [place], [place] [address]DrTye Taylor Platelet mean volume (Bld) [Entitic vol] 9.6 fL Normal 9.5-13.5 [facility] Comment on above: Performed By: #### C BC ####[facility] [address] [place] [id number]. Arnoldo Taylor PLT 212 103/ul Normal 150-450 [facility] Comment on above: Performed By: #### C BC ####[facility] [address]vn[address] [place] [id number]. Arnoldo Taylor RBC 2.82 106/ul Critically low 4.20-5.40 [facility] Comment on above: Performed By: #### C BC ####[facility] [address]wtkb[address]ss[address] [place] [id number]. Arnoldo Taylor WBC 9.6 103/ul Normal 4.0-11.0 [facility] Comment on above: Performed By: #### C BC ####[facility] [address] [place] [address]Dr. Arnoldo Taylor PROF CHEM 8 (BAS METB)on Anion gap [Moles/Vol] 10.5 mmol/L Normal [facility] Comment on above: Performed By: #### B MP ####[facility] [address]ef[address] [place], [place] [address]Dr. Arnoldo Taylor Calcium [Mass/Vol] 8.8 mg/dL Normal 8.5-10.1 [facility] Comment on above: Performed By: #### B MP ####[facility] [address] [place] [address]Dr. Arnoldo Taylor Chloride [Moles/Vol] 103 mmol/L Normal 98-107 [facility] Comment on above: Performed By: #### B MP ####[facility] [address]npdkzw[address] [place] [id number] Taylor CO2 [Moles/Vol] 30.5 mmol/L Normal 21.0-32.0 [facility] Comment on above: Performed By: #### B MP ####[facility] X[address]hern[address] [place] [id number]. Arnoldo Taylor Creatinine [Mass/Vol] 0.83 mg/dL Normal 0.55-1.02 [facility] Comment on above: Performed By: #### B MP ####[facility] Lovyclkbva[address] [place] [id number]. Arnoldo Taylor EGFR-AF LIBYAN >60 Normal >=60 [facility] Comment on above: Performed By: #### B MP ####[facility] Yf[address]ifp[address] [place] [id number]. Lynettesujata Brandon EGFR-NON AF LIBYAN >60 Normal >=60 [facility] Comment on above: Performed By: #### B MP ####[facility] [address]rpfgt[address] [place] [id number]. Arnoldo Taylor Glucose [Mass/Vol] 96 mg/dL Normal 74-106 [facility] Comment on above: Performed By: #### B MP ####[facility] [address] [place] [address]Dr. Arnoldo Taylor Potassium [Moles/Vol] 4.0 mmol/L Normal 3.5-5.1 [facility] Comment on above: Performed By: #### B MP ####[facility] [address]or[address] [place] [id number]. Arnoldo Taylor Sodium [Moles/Vol] 140 mmol/L Normal 136-145 [facility] Comment on above: Performed By: #### B MP ####[facility] Rey[address]ovdjt[address] [place] [id number]. Arnoldo Taylor Urea nitrogen [Mass/Vol] 22.0 mg/dL Critically high 7.0-18.0 [facility] Comment on above: Performed By: #### B MP ####[facility] [address]zz[address]jhr[address] [place] [id number]. Arnoldo Taylor Urea nitrogen/Creatinine [Mass ratio] 26.5 mg/mg Normal [facility] Comment on above: Performed By: #### B MP ####[facility] [address]nt[address] [place] [id number]. Arnoldo Taylor BASIC METABOLIC PANELon 05-02 Anion gap [Moles/Vol] 8 mmol/L Normal 7-20 [facility] Comment on above: Performed By: #### L AB15 ####[facility] ([facility] [place] [address] Calcium [Mass/Vol] 8.8 mg/dL Normal 8.6-10.3 [facility] Comment on above: Performed By: #### L AB15 ####[facility] ([facility])[address] [place] [address] Chloride [Moles/Vol] 105 mmol/L Normal 98-107 [facility] Comment on above: Performed By: #### L AB15 ####[facility] ([facility])[address] [place] [address] CO2 [Moles/Vol] 24 mmol/L Normal 21-31 [facility] Comment on above: Performed By: #### L AB15 ####[facility] ([facility])[address] [place] [address] Creatinine [Mass/Vol] 0.93 mg/dL Normal 0.60-1.20 [facility] Comment on above: Performed By: #### L AB15 ####[facility] ([facility])[address] [place] [address] GLOMERULAR FILTRATION RATE ML/MIN/1.73 SQ M.PREDICTED 58.6 mL/min/1.73m*2 Low >60.0 [facility] Comment on above: Result Comment: The [facility]???s estimated glomerular filtration rate (eGFR) will no [...] of individuals. Performed By: #### L AB15 ####[facility] ([facility])[address] [place] [address] Glucose [Mass/Vol] 164 mg/dL High 70-100 [facility] Comment on above: Performed By: #### L AB15 ####[facility] ([facility])[address] [place] [address] Potassium [Moles/Vol] 4.2 mmol/L Normal 3.5-5.1 [facility] Comment on above: Performed By: #### L AB15 ####[facility] ([facility])[address] [place] [address] Sodium [Moles/Vol] 137 mmol/L Normal 136-145 [facility] Comment on above: Performed By: #### L AB15 ####[facility] ([facility])[address] [place] [address] Urea nitrogen [Mass/Vol] 17 mg/dL Normal 7-25 [facility] Comment on above: Performed By: #### L AB15 ####[facility] ([facility])[address] [place] [address] UREA NITROGEN/CREATININE (MASS RATIO) IN SER/PLAS 18.28 Normal [facility] Comment on above: Performed By: #### L AB15 ####[facility] ([facility])[address] [place] [address] CBCon 05-12-2022 Erythrocyte distribution width (RBC) [Ratio] 13.6 % Normal 11.5-15.0 [facility] Comment on above: Performed By: #### L [id number] ####[facility] ([facility])[address] [place] [address] ERYTHROCYTE MEAN CORPUSCULAR HEMOGLOBIN CONCENTRATION (G/DL) BY AUTOMATED 34.0 g/dL Normal 32.0-35.0 [facility] Comment on above: Performed By: #### L [id number] ####[facility] ([facility])[address] [place] [address] Hematocrit (Bld) [Volume fraction] 28.8 % Low 36.0-48.0 [facility] Comment on above: Performed By: #### L [id number] ####[facility] ([facility])[address] [place] [address] Hemoglobin (Bld) [Mass/Vol] 9.8 g/dL Low 12.0-15.0 [facility] Comment on above: Performed By: #### L [id number] ####[facility] ([facility])[address] [place] [address] MCH (RBC) [Entitic mass] 30.8 pg Normal 27.0-33.0 [facility] Comment on above: Performed By: #### L [id number] ####[facility] ([facility])[address] [place] [address] MCV (RBC) [Entitic vol] 90.6 fL Normal 82.0-98.0 [facility] Comment on above: Performed By: #### L [id number] ####[facility] ([facility])[address] [place] [address] PLATELETS (10*3/UL) IN BLOOD AUTOMATED COUNT 111 10*3/uL Low 150-400 [facility] Comment on above: Performed By: #### L [id number] ####[facility] ([facility])[address] [place] [address] RBC (Bld) [#/Vol] 3.18 10*6/uL Low 3.80-5.00 [facility] Comment on above: Performed By: #### L [id number] ####[facility] ([facility])[address] [place] [address] WBC (Bld) [#/Vol] 11.38 10*3/uL High 4.00-10.60 [facility] Comment on above: Performed By: #### L [id number] ####[facility] ([facility])[address] [place] [address] MAGNESIUMon 05-12-2022 Magnesium [Mass/Vol] 1.5 mg/dL Low 1.9-2.7 [facility] Comment on above: Performed By: #### L [id number] ####[facility] ([facility])[address] [place] [address] PHOSPHORUSon 05-12-2022 Magnesium [Mass/Vol] 2.6 mg/dL Normal 2.5-5.0 [facility] Comment on above: Performed By: #### L AB113 ####[facility] ([facility])[address] [place] [address] Anesthesiaon 05-11-2022 Anesthesia [id number] Fausto Yanes 1940 F Date Provider Department Center 05/11/2022 ELISHA SINGLETON [facility] Family History Family history unknown: Yes Normal [facility] BASIC METABOLIC PANELon 05-02 Anion gap [Moles/Vol] 6 mmol/L Low 7-20 [facility] Comment on above: Performed By: #### L AB15 ####[facility] ([facility])[address] [place] [address] Calcium [Mass/Vol] 9.1 mg/dL Normal 8.6-10.3 [facility] Comment on above: Performed By: #### L AB15 ####[facility] ([facility])[address] [place] [address] Chloride [Moles/Vol] 106 mmol/L Normal 98-107 [facility] Comment on above: Performed By: #### L AB15 ####[facility] ([facility])[address] [place] [address] CO2 [Moles/Vol] 27 mmol/L Normal 21-31 [facility] Comment on above: Performed By: #### L AB15 ####[facility] [place] [address] Creatinine [Mass/Vol] 0.84 mg/dL Normal 0.60-1.20 [facility] Comment on above: Performed By: #### L AB15 ####[facility])[address] [place] [address] GLOMERULAR FILTRATION RATE ML/MIN/1.73 SQ M.PREDICTED 66.3 mL/min/1.73m*2 Normal >60.0 [facility] Comment on above: Result Comment: The [facility]???s estimated glomerular filtration rate (eGFR) will no [...] of individuals. Performed By: #### L AB15 ####[facility] ([facility])[address] [place] [address] Glucose [Mass/Vol] 100 mg/dL Normal 70-100 [facility] Comment on above: Performed By: #### L AB15 ####[facility] ([facility])[address] [place] [address] Potassium [Moles/Vol] 4.2 mmol/L Normal 3.5-5.1 [facility] Comment on above: Performed By: #### L AB15 ####[facility] ([facility])[address] [place] [address] Sodium [Moles/Vol] 139 mmol/L Normal 136-145 [facility] Comment on above: Performed By: #### L AB15 ####[facility] ([facility])[address] [place] [address] Urea nitrogen [Mass/Vol] 18 mg/dL Normal 7-25 [facility] Comment on above: Performed By: #### L AB15 ####[facility] ([facility])[address] [place] [address] UREA NITROGEN/CREATININE (MASS RATIO) IN SER/PLAS 21.43 Normal [facility] Comment on above: Performed By: #### L AB15 ####[facility] ([facility])[address] [place] [address] CBCon 05-11-2022 Erythrocyte distribution width (RBC) [Ratio] 13.7 % Normal 11.5-15.0 [facility] Comment on above: Performed By: #### L [id number] ####[facility] ([facility])[address] [place] [address] ERYTHROCYTE MEAN CORPUSCULAR HEMOGLOBIN CONCENTRATION (G/DL) BY AUTOMATED 33.3 g/dL Normal 32.0-35.0 [facility] Comment on above: Performed By: #### L [id number] ####[facility] ([facility])[address] [place] [address] Hematocrit (Bld) [Volume fraction] 37.2 % Normal 36.0-48.0 [facility] Comment on above: Performed By: #### L [id number] ####[facility] ([facility])[address] [place] [address] Hemoglobin (Bld) [Mass/Vol] 12.4 g/dL Normal 12.0-15.0 [facility] Comment on above: Performed By: #### L [id number] ####[facility] ([facility])[address] [place] [address] IMMATURE PLATELET FRACTION % 1.5 % Normal 0.8-6.3 [facility] Comment on above: Performed By: #### L [id number] ####[facility] ([facility])[address] [place] [address] MCH (RBC) [Entitic mass] 30.5 pg Normal 27.0-33.0 [facility] Comment on above: Performed By: #### L [id number] ####[facility] ([facility])[address] [place] [address] MCV (RBC) [Entitic vol] 91.4 fL Normal 82.0-98.0 [facility] Comment on above: Performed By: #### L [id number] ####[facility] ([facility])[address] [place] [address] PLATELETS (10*3/UL) IN BLOOD AUTOMATED COUNT 130 10*3/uL Low 150-400 [facility] Comment on above: Performed By: #### L [id number] ####[facility] ([facility])[address] [place] [address] RBC (Bld) [#/Vol] 4.07 10*6/uL Normal 3.80-5.00 [facility] Comment on above: Performed By: #### L [id number] ####[facility] ([facility])[address] [place] [address] WBC (Bld) [#/Vol] 8.01 10*3/uL Normal 4.00-10.60 [facility] Comment on above: Performed By: #### L [id number] ####[facility] ([facility])[address] [place] [address] CONSULTon 05-11-2022 CONSULT -- Attestation signed by [...] Hip Pain. She was a transfer from [place] for a fall, hip fracture. Patient is a very poor historian with no family at bedside Per OSH report, she was found down at 1am at her nursing facility on 05/10 and taken to [place], where she was found to have a [...] of Anxiety, COPD (chronic obstructive pulmonary disease) ([facility]), Dementia ([facility]), GERD (gastroesophageal reflux disease), and Hypertension. Surgical [...] For Ethnic (more content not included)... Normal [facility] CT CERVICAL SPINE WO IV CONT [facility] 05-11-2022 CT CERVICAL SPINE WO IV CONTRAST [...] this report. Electronically signed: Duarte Pollard. Normal [facility] HEMOGLOBIN A1Con 05-11-2022 Glucose [Mass/Vol] 93.93 mg/dL Normal [facility] Comment on above: Performed By: #### L AB90 ####[facility] ([facility])[address] [place] [address] HbA1c (Bld) [Mass fraction] 4.9 % Normal 4.0-6.0 [facility] Comment on above: Performed By: #### L AB90 ####[facility] ([facility])[address] [place] [address] HPon 05-11-2022 HP History Of Present Illness Myranda Yanes is a 81 y.o. female presenting with Hip Pain. This is a 81 years old female lady with a medical history of hypertension, advanced vascular dementia, deafness type II, Parkinson disease, peripheral neuropathy, gastroesophageal reflux disease, hypothyroidism, ideation hours anxiety disorder, obstructive sleep apnea, thrombocytopenia unspecified, iron deficiency anemia. She came into [facility] ED as a transfer from outside hospital /[facility] for fall and hip fracture. The patient is very poor historian and she has advanced dementia and the details from the record & medical report from the ED physician as that she was found on the floor at 1am 05/10/22 and taken to [facility]. And found to have a R femoral neck fracture and bruising to her forehead when found. She denies loss of consciousness and is on plavix/on a different report they state that she is on Eliquis we will need to verified as the care everywhere in [facility] does not show the correct medication list. Follow radiological evaluation and trauma consult was placed and we are trying to work her up for possible medical clearance Past Medical History She has a past medical history of Anxiety, COPD (chronic obstructive pulmonary disease) ([facility]), Dementia ([facility]), GERD (gastroesophageal reflux disease), and Hypertension. Surgical [...] fixation o (more content not included)... Normal [facility] LIPID PANELon 05-11-2022 CHOL/HDL 3.96 mg/dL Normal [facility] Comment on above: Performed By: #### L [id number] ####[facility] ([facility])[address] [place] [address] Cholesterol [Mass/Vol] 198 mg/dL Normal 120-200 [facility] Comment on above: Performed By: #### L [id number] ####[facility] ([employer])[address] [place] [address] Magnesium [Mass/Vol] 95 mg/dL Normal 40-149 [facility] Comment on above: Result Comment: TRIG LYCERIDE REFERENCE RANGE: 20 YEARS AND OLDER CARDIOVASCULAR RISK LESS THAN 150 mg/dL LOW RISK 150 TO 199 mg/dL BORDERLINE RISK 200 mg/dL AND GREATER HIGH RISK Performed By: #### L AB18 ####[facility] ([facility])[address] [place] [address] Magnesium [Mass/Vol] 129 mg/dL Normal 0-160 [facility] Comment on above: Performed By: #### L AB18 ####[facility] ([facility])[address] [place] [address] Magnesium [Mass/Vol] 50 mg/dL Normal 23-92 [facility] Comment on above: Performed By: #### L AB18 ####[facility] ([facility])[address] [place] [address] NON HDL CHOL. (LDL+VLDL) 148 Normal [facility] Comment on above: Performed By: #### L AB18 ####[facility] ([facility])[address] [place] [address] TOTAL VLDL-C 19 mg/dL Normal 0-40 [facility] Comment on above: Performed By: #### L AB18 ####[facility] ([facility])[address] [place] [address] OPNOTEon 05-11-2022 OPNOTE -- Attestation signed by Carlie Shine MD at 05/11/2022 8:37 PM I agree with above documentation. Date: 05/11/2022 Location: [facility] OR Name: Myranda Yanes, : 1940, Diagnosis Pre-op Diagnosis * Closed fracture of neck of right femur, initial encounter ([facility]) [S72.001A] Post-op Diagnosis * Closed fracture of neck of right femur, initial encounter ([facility]) [S72.001A] Procedures * Right femur hemiarthroplasty Surgeons * Carlie Shine - Primary Procedure Summary Anesthesia: General ASA: III Estimated Blood Loss: 150 mL Total IV Fluids: See anesthesia note. Drains: Urethral Catheter (Active) Site Assessment Other (Comment) 05/11/22 1450 Collection Container Standard drainage bag 05/11/22 0507 Output (mL) 250 mL 05/11/22 0508 Implants Type Name Action Serial No. Bone Cement CEMENT,BONE,R,1X40US - [id number] Wasted Echo FX Hip System Implanted Total Joint PLUG,BONE,LARGE - [id number] Implanted Distal Centralizer/Centering Sleeve Implanted Bone Cement CEMENT,BONE,R,1X40US - [id number] Implanted Total Joint INSERT,ENDO II TAPER,STD - [id number] Implanted Total Joint HEAD,MODULAR,49MM - [id number] Implanted Staff: Electrochemist: Aidan Park RN Relief Scrub: Batsheva Smith Scrub Person: Susana Guerrero, PASTEURIZER HELPER Indications: Myranda Yanes is an 81 y.o. female who is having surgery for Closed fracture of neck of right femur, initial encounter ([facility]) [S72.001A]. Findings: femoral neck fracture, displaced minimally Complications: None; patient tolerated the procedure well. Disposition: PACU - hemodynamically stable. Condition: stable Specimens Collected: No specimens collected during this procedure. Attending Attestation: I was present for the entire procedure. Carlie Shine Dictated by Мария Pillai MD Orthopedic Surgery, PGY-[phone] [facility] OPNOTE Right femur hemiarthroplasty (R) Operative Note Date: 05/11/2022 Location: [facility] Name: Myranda Yanes, : 1940, Diagnosis Pre-op Diagnosis * Closed fracture of neck of right femur, initial encounter ([facility]) [S72.001A] Post-op Diagnosis * Closed fracture of neck of right femur, initial encounter ([facility]) [S72.001A] Procedures * Right femur hemiarthroplasty Surgeons * Carlie Shine - Primary Procedure Summary Anesthesia: General ASA: III Estimated Blood Loss: 350 mL Total IV Fluids: see anesthesia note Drains: Urethral Catheter (Active) Site Assessment Other (Comment) 05/11/22 1450 Collection Container Standard drainage bag 05/11/22 0507 Output (mL) 250 mL 05/11/22 0508 Implants Type Name Action Serial No. Bone Cement CEMENT,BONE,R,1X40US - [id number] Wasted Echo FX Hip System Implanted Total Joint PLUG,BONE,LARGE - [id number] Implanted Distal Centralizer/Centering Sleeve Implanted Bone Cement CEMENT,BONE,R,1X40US - [id number] Implanted Total Joint INSERT,ENDO II TAPER,STD - [id number] Implanted Total Joint HEAD,MODULAR,49MM - [id number] Implanted Staff: Electrochemist: Aidan Park RN Relief Scrub: Batsheva Smith Scrub Person: Susana Guerrero CST Indications: Myranda Yanes is an 81 y.o. female who is having surgery for Closed fracture of neck of right femur, initial encounter ([facility]) [S72.001A]. DISPOSITION: PACU. FINDINGS: Displaced femoral neck [...] , damage to normal structure, PE, DVT, GA, stroke, nonunion, malunion, chronic pain, arthrosis, arthritis, [...] femur preparation. (more content not included)... Normal [facility] POCT GLUCOSE METER UNSOLICIT ED RESULTSon 05-11-2022 Glucose [Mass/Vol] 116 mg/dL High 70-105 [facility] Comment on above: Result Comment: [facility] Performed By: #### L [id number] ####[facility] ([facility])[address] [place] [address] Prep for Procedureon 023 Prep for Procedure [id number] Fausto Yanes 1940 F Date Provider Department Center 05/11/2022 JOHN RASHID MP [facility] Family History Family history unknown: Yes Normal [facility] T4, FREEon 05-11-2022 THYROXINE (T4) FREE (NG/DL) IN SER/PLAS 1.38 ng/dL Normal 0.71-1.85 [facility] Comment on above: Performed By: #### L [id number] ####[facility] ([facility])[address] [place] [address] TSH3 REFLEX TO FT4on 023 THYROTROPIN (MIU/L) IN SER/PLAS BY DETECTION LIMIT <= 0.05 MIU/L 0.03 mIU/L Low 0.34-5.60 [facility] Comment on above: Performed By: #### L [id number] ####[facility] ([facility])[address] [place] [address] TYPE AND SCREENon 05-11-2022 AB SCREEN Negative Normal [facility] Comment on above: Performed By: #### L [id number] ####[facility] BLOOD BANK, ABO group Nom (Bld) A Normal [facility] Comment on above: Performed By: #### L [id number] ####[facility] BLOOD B[facility], RH TYPE IN BLOOD Positive Normal [facility] Comment on above: Performed By: #### L [id number] ####[facility] BLOOD BANK, URINALYSIS MICROSCOPIC WITH REFLEX CULTUREon 05-11-2022 CASTS IN URINE Normal [facility] Comment on above: Performed By: #### L [id number] ####[facility] (BEAKER)[address] [place] [address] CRYSTALS IN URINE Normal [facility] Comment on above: Performed By: #### L [id number] ####[facility] ([facility])[address] [place] [address] LEUKOCYTE ESTERASE PRESENCE IN URINE BY TEST STRIP Negative Normal Negative [facility] Comment on above: Performed By: #### L [id number] ####[facility] ([facility])[address] [place] [address] Order Comment: 0000 Performed By: #### L [id number] ####[facility] ([facility])[address] [place] [address] MUCUS (#/HPF) IN URINE SEDIMENT Occasional Normal None Seen, Occasional, Few [facility] Comment on above: Performed By: #### L [id number] ####[facility] ([facility])[address] [place] [address] NITRITE PRESENCE IN URINE Negative Normal Negative [facility] Comment on above: Performed By: #### L [id number] ####[facility] ([facility])[address] [place] [address] Order Comment: 0000 Performed By: #### L [id number] ####[facility] (BEAKER)[address] [place] [address] OTHER MICROSCOPIC ELEMENTS Normal [facility] Comment on above: Performed By: #### L [id number] ####[facility] (BEAKER)[address] [place] [address] RBC (#/HPF) IN URINE SEDIMENT 11-20 Abnormal None Seen [facility] Comment on above: Performed By: #### L [id number] ####[facility] (BEAKER)[address] [place] [address] SQUAMOUS EPITHELIAL CELLS (#/HPF) IN URINE SEDIMENT None Seen Normal None Seen, Occasional [facility] Comment on above: Performed By: #### L [id number] ####[facility] (BEAKER)[address] [place] [address] WBC (LEUKOCYTE) (#/HPF) IN URINE SEDIMENT 0-2 Abnormal None Seen [facility] Comment on above: Performed By: #### L [id number] ####[facility] ([facility]ER)[address] [place] [address] URINALYSIS WITH REFLEX CULTU REon 05-11-2022 BILIRUBIN, TOTAL PRESENCE IN URINE Negative Normal Negative [facility] Comment on above: Order Comment: 0000 Performed By: #### L [id number] ####[facility] (BE[facility]ER)[address] [place] [address] Clarity (U) Clear Normal Clear [facility] Comment on above: Order Comment: 0000 Performed By: #### L [id number] ####[facility] (BE[facility]ER)[address] [place] [address] Color (U) Yellow Normal Yellow, Dark Yellow, Straw [facility] Comment on above: Order Comment: 0000 Performed By: #### L [id number] ####[facility] ([facility]AKER)[address] [place] [address] Glucose (U) [Mass/Vol] Negative Normal Negative [facility] Comment on above: Order Comment: 0000 Performed By: #### L [id number] ####[facility] (BEAKER)[address] [place] [address] HEMOGLOBIN PRESENCE IN URINE Small Abnormal Negative [facility] Comment on above: Order Comment: 0000 Performed By: #### L [id number] ####[facility] ([facility]ER)[address] [place] [address] Ketones Ql (U) Negative Normal Negative [facility] Comment on above: Order Comment: 0000 Performed By: #### L [id number] ####[facility] ([facility]ER)[address] [place] [address] pH (U) 7.5 [pH] Normal 5.0-8.0 [facility] Comment on above: Order Comment: 0000 Performed By: #### L [id number] ####[facility] ([facility])[address] [place] [address] Protein (U) [Mass/Vol] Negative Normal Negative [facility] Comment on above: Order Comment: 0000 Performed By: #### L [id number] ####[facility] (BE[facility]ER)[address] [place] [address] Specific gravity (U) [Rel density] 1.015 Normal 1.015-1.020 [facility] Comment on above: Order Comment: 0000 Performed By: #### L [id number] ####[facility] ([facility])[address] [place] [address] UROBILINOGEN (EU/DL) IN URINE 0.2 EU/dL Normal Negative [facility] Comment on above: Order Comment: 0000 Performed By: #### L [id number] ####[facility] ([facility])[address] [place] [address] CBC AUTO DIFFon 05-10-2022 BASO # 0.0 103/ul Normal 0.0-0.1 [facility] Comment on above: Performed By: #### C BC ####[facility] Seg[address] [place], [place] [address]Dr. Arnoldo Taylor Basophils/100 WBC (Bld) 0.1 % Critically low 0.2-2.0 [facility] Comment on above: Performed By: #### C BC ####[facility] S[address] [place], [place] [address]Dr. Arnoldo Taylor EO # 0.2 103/ul Normal 0.0-0.7 [facility] Comment on above: Performed By: #### C BC ####[facility] [address] [place], [place] [address]Dr. Arnoldo Taylor Eosinophils/100 WBC (Bld) 1.7 % Normal 0.9-7.0 [facility] Comment on above: Performed By: #### C BC ####[facility] N[address]zurbs[address] [place], [place] [address]Dr. Arnoldo Taylor Erythrocyte distribution width (RBC) [Ratio] 13.9 % Normal 11.0-15.0 [facility] Comment on above: Performed By: #### C BC ####[facility] [address] [place] [address]Dr. Arnoldo Taylor Hematocrit (Bld) [Volume fraction] 34.1 % Critically low 36.0-48.0 [facility] Comment on above: Performed By: #### C BC ####[facility] [address] [place], [place] [address]Dr. Arnoldo Taylor Hemoglobin (Bld) [Mass/Vol] 11.8 g/dL Critically low 12.0-16.0 [facility] Comment on above: Performed By: #### C BC ####[facility] N[address] [place], [place] [address]Dr. Arnoldo Taylor IG # 0.01 10e3/ul Normal 0.00-0.03 [facility] Comment on above: Performed By: #### C BC ####[facility] [address] [place], [place] [address]Dr. Arnoldo Taylor IG % 0.1 % Normal 0.0-0.5 [facility] Comment on above: Performed By: #### C BC ####[facility] Tex[address]ower[address] [place], [place] [address]Dr. Arnoldo Taylor LYMPH # 1.6 103/ul Normal 1.2-3.8 [facility] Comment on above: Performed By: #### C BC ####[facility] [address]ms[address] [place], [place] [address]Dr. Arnoldo Taylor Lymphocytes/100 WBC (Bld) 17.9 % Critically low 20.5-60.0 [facility] Comment on above: Performed By: #### C BC ####[facility] I[address]xq[address] [place], [place] [address]Dr. Arnoldo Brandon MANUAL DIFF REQ NO Normal [facility] Comment on above: Performed By: #### C BC ####[facility] [address] [place], [place] [address]Dr. Arnoldo Brandon MCH (RBC) [Entitic mass] 29.9 pg Normal 26.7-34.0 [facility] Comment on above: Performed By: #### C BC ####[facility] [address] [place] [address]Dr. Arnoldo Taylor MCHC (RBC) [Mass/Vol] 34.6 g/dL Normal 29.9-35.2 [facility] Comment on above: Performed By: #### C BC ####[facility] [address] [place], [place] [address]Dr. Arnoldo Brandon MCV (RBC) [Entitic vol] 86.3 fL Normal 81.0-99.0 [facility] Comment on above: Performed By: #### C BC ####[facility] [address] [place], [place] [address]Dr. Arnoldo Taylor MONO # 0.9 103/ul Critically high 0.3-0.8 [facility] Comment on above: Performed By: #### C BC ####[facility] [address] [place], [place] [address]Dr. Lynettesujata Taylor Monocytes/100 WBC (Bld) 9.9 % Normal 1.7-12.0 [facility] Comment on above: Performed By: #### C BC ####[facility] [address] [place], [place] [address]Dr. Arnoldo Taylor NEUT # 6.2 103/ul Normal 1.4-6.5 [facility] Comment on above: Performed By: #### C BC ####[facility] [address] [place], [place] [address]Dr. Arnoldo Taylor Neutrophils/100 WBC (Bld) 70.3 % Normal 43.0-75.0 [facility] Comment on above: Performed By: #### C BC ####[facility] [address] [place], [place] [address]Dr. Arnoldo Taylor Platelet mean volume (Bld) [Entitic vol] 9.3 fL Critically low 9.5-13.5 [facility] Comment on above: Performed By: #### C BC ####[facility] [address] [place], [place] [address]Hn. Arnoldo Taylor PLT 134 103/ul Critically low 150-450 [facility] Comment on above: Performed By: #### C BC ####[facility] [address] [place], [place] [address]Kd. Arnoldo Taylor RBC 3.95 106/ul Critically low 4.20-5.40 [facility] Comment on above: Performed By: #### C BC ####[facility] [address] [place], [place] [address]Ap. Arnoldo Taylor WBC 8.8 103/ul Normal 4.0-11.0 [facility] Comment on above: Performed By: #### C BC ####[facility] [address] [place], [place] [address]Zy. Arnoldo Taylor CONSULTon 05-10-2022 CONSULT -- Attestation [...] Final Atrial Rate 11/06/2021 81 BPM Final [place] Interval 11/06/2021 162 ms Final QRS DURATION 11/06/2021 90 ms Final QT Interval 11/06/2021 414 ms Final QTC CALCULATION(BAZETT) 11/06/2021 480 ms Final P [place] 11/06/2021 80 degrees Final R-[place] 11/06/2021 61 degrees Final T Wave [place] 11/06/2021 69 degrees Final Diagnosis 11/06/2021 Final [...] he says is her Medical Power Of Lapel Stitcher, as the patient is unable to consent for herself due to her dementia. The son stated that he did her prior two surgical consents as well. -Appreci (more content not included)... Normal [facility] CT HEAD WO CONon 05-10-2022 CT HEAD WO CON Normal [facility] CT HIP RT WO CONon CT HIP RT WO CON Normal [facility] Covid-19 PCR (CVDTB)on SARS-CoV-2 (COVID-19) RNA JAMMIE+probe [...] for this test is supported by the Senior Benefits Specialist of Health and Human Service's declaration that [...] used). Performed By: #### C [facility] ####[facility] [address] [place], [place] [address]Hm. Arnoldo Taylor EDNIlana 05-10-2022 EDKALE Pt arrives by squad this date as an ER transfer from [facility]. Pt is a resident of [facility], she was found on the floor at 1am 05/10/22 and taken to [facility]. Pt found to have a R femoral neck fracture and bruising to her forehead when found. Pt denies loss of consciousness and is on plavix. The son (Attila Yanes) is patients POA and his number is [phone]. The son is notified by ortho and specifications writer speaks with him as witness regarding consent and explanation of plan for upcoming procedure. Per son, he reports pt had dementia and since her last surgery she has drastically declined. Son states she most likely will not make any sense and is difficult to understand, he also states she is prone to UTIs which worsen her orientation Normal [facility] EDPROVon 05-10-2022 EDPROV HPI Chief Complaint Patient presents with Hip Pain R hip fracture Patient presenting as transfer from outside hospital for fall and hip fracture. Per report, she fell at her snf and had right hip pain, she was [...] Date Anxiety COPD (chronic obstructive pulmonary disease) ([facility]) Dementia ([facility]) GERD (gastroesophageal reflux disease) Hypertension Past Surgical [...] of neck of right femur, initial encounter ([facility]) Fall at home, sequela Medical Decision Making Dr. Ramsay performed a history and physical examination of Myranda Yanes and discussed her management with the resident. Dr. Ramsay agrees with the history, physical, assessment, and plan of care, with the following exceptions: None A 81 y.o female presents to the ED via transfer from [facility] for right hip fracture. Pt updated on plan of care. JESSICA MOORE Attestation: I performed a history and physical exam on this patient and discussed his or her management with the resident. I reviewed the resident's note and agree with the documented findings and plan of care with th (more content not included)... Normal [facility] PROF CHEM 8 (BAS METB)on Anion gap [Moles/Vol] 10.0 mmol/L Normal [facility] Comment on above: Performed By: #### B MP ####[facility] [address] [place] [address]Dr. Arnoldo Taylor Calcium [Mass/Vol] 9.1 mg/dL Normal 8.5-10.1 [facility] Comment on above: Performed By: #### B MP ####[facility] [address] [place] [address]Dr. Arnoldo Taylor Chloride [Moles/Vol] 106 mmol/L Normal 98-107 [facility] Comment on above: Performed By: #### B MP ####[facility] [address] [place] [address]Dr. Arnoldo Taylor CO2 [Moles/Vol] 28.1 mmol/L Normal 21.0-32.0 [facility] Comment on above: Performed By: #### B MP ####[facility] [address] [place], [place] [address]Dr. Arnoldo Taylor Creatinine [Mass/Vol] 0.92 mg/dL Normal 0.55-1.02 [facility] Comment on above: Performed By: #### B MP ####[facility] [address] [place], [place] [address]Dr. Arnoldo Taylor EGFR-AF LIBYAN >60 Normal >=60 [facility] Comment on above: Performed By: #### B MP ####[facility] V[address] [place], [place] [address]Dr. Arnoldo Taylor EGFR-NON AF LIBYAN 59 mL/min/1.73m2 Critically low >=60 [facility] Comment on above: Performed By: #### B MP ####[facility] [address] [place], [place] [address]Dr. Arnoldo Taylor Glucose [Mass/Vol] 103 mg/dL Normal 74-106 [facility] Comment on above: Performed By: #### B MP ####[facility] [address] [place], [place] [address]Dr. Arnoldo Taylor Potassium [Moles/Vol] 4.1 mmol/L Normal 3.5-5.1 [facility] Comment on above: Performed By: #### B MP ####[facility] [address] [place], [place] [address]Ln. Arnoldo Taylor Sodium [Moles/Vol] 140 mmol/L Normal 136-145 [facility] Comment on above: Performed By: #### B MP ####[facility] [address] [place], [place] [address]Jl. Arnoldo Taylor Urea nitrogen [Mass/Vol] 22.0 mg/dL Critically high 7.0-18.0 [facility] Comment on above: Performed By: #### B MP ####[facility] [address] [place], [place] [address]Za. Arnoldo Taylor Urea nitrogen/Creatinine [Mass ratio] 23.9 mg/mg Normal [facility] Comment on above: Performed By: #### B MP ####[facility] [address] [place], [place] [address]Ou. Arnoldo Taylor XR HIP RT 2 3V W PELVISon XR HIP RT 2 3V W PELVIS Normal [facility] XR KNEE RT 4V or >on 023 XR KNEE RT 4V or > Normal [facility] CT CHEST WO CONon 04-06-2022 CT CHEST WO CON Normal [facility] Office Visiton 03-30-2022 Follow-up visit [id number] Fausto Yanes 1940 Provider Department Center 03/30/2022 GEORGE HOOD MP [facility] Family History Family history unknown: Yes Level of Service:27152 [place] OFFICE/OUTPATIENT ESTABLISHED LOW MDM 20-29 MIN Reason for Visit and Comments: Follow-up [360999] Normal [facility] Orders Onlyon 03-30-2022 Orders Only [id number] Fausto Yanes 1940 Provider Department Center 03/30/2022 CHANDRA DEAL MP [facility] Family History Family history unknown: Yes Normal [facility] Office Visiton 02-23-2022 Follow-up visit [id number] Fausto Yanes 1940 Date Provider Department Center 02/23/2022 [facility] Family history unknown: Yes Level of Service:45897 [place] POSTOP FOLLOW UP VISIT RELATED TO ORIGINAL PX Reason for Visit and Comments: Pain [136] Normal [facility] Orders Onlyon 02-23-2022 Orders Only [id number] Fausto Yanes 1940 F Date Provider Department Center 02/23/2022 792-CHANDRA LUCIO [facility] Family History Family history unknown: Yes Normal [facility] CBC AUTO DIFFon 02-01-2022 BASO # 0.0 103/ul Normal 0.0-0.1 [facility] Comment on above: Performed By: #### C BC ####[facility] [address] [place] [address]Dr. Arnoldo Taylor Basophils/100 WBC (Bld) 0.3 % Normal 0.2-2.0 [facility] Comment on above: Performed By: #### C BC ####[facility] R[address] [place], [place] [address]Dr. Arnoldo Taylor EO # 0.5 103/ul Normal 0.0-0.7 [facility] Comment on above: Performed By: #### C BC ####[facility] [address] [place], [place] [address]Dr. Arnoldo Taylor Eosinophils/100 WBC (Bld) 6.5 % Normal 0.9-7.0 [facility] Comment on above: Performed By: #### C BC ####[facility] [address] [place] [address]Dr. Arnoldo Taylor Erythrocyte distribution width (RBC) [Ratio] 13.3 % Normal 11.0-15.0 [facility] Comment on above: Performed By: #### C BC ####[facility] [address] [place], [place] [address]Dr. Arnoldo Taylor Hematocrit (Bld) [Volume fraction] 36.2 % Normal 36.0-48.0 [facility] Comment on above: Performed By: #### C BC ####[facility] [address] [place], [place] [address]Dr. Arnoldo Taylor Hemoglobin (Bld) [Mass/Vol] 11.4 g/dL Critically low 12.0-16.0 [facility] Comment on above: Performed By: #### C BC ####[facility] [address] [place] [address]Dr. Arnoldo Taylor IG # 0.02 10e3/ul Normal 0.00-0.03 [facility] Comment on above: Performed By: #### C BC ####[facility] [address] [place] [address]Dr. Arnoldo Taylor IG % 0.3 % Normal 0.0-0.5 [facility] Comment on above: Performed By: #### C BC ####[facility] S[address] [place], [place] [address]Dr. Arnoldo Taylor LYMPH # 3.0 103/ul Normal 1.2-3.8 [facility] Comment on above: Performed By: #### C BC ####[facility] [address]sefan[address] [place], [place] [address]Dr. Arnoldo Taylor Lymphocytes/100 WBC (Bld) 39.8 % Normal 20.5-60.0 [facility] Comment on above: Performed By: #### C BC ####[facility] [address] [place], [place] [address]Dr. Arnoldo Taylor MANUAL DIFF REQ NO Normal [facility] Comment on above: Performed By: #### C BC ####[facility] F[address]phjk[address] [place], [place] [address]Dr. Arnoldo Taylor MCH (RBC) [Entitic mass] 29.3 pg Normal 26.7-34.0 [facility] Comment on above: Performed By: #### C BC ####[facility] M[address] [place], [place] [address]Dr. Arnoldo Taylor MCHC (RBC) [Mass/Vol] 31.5 g/dL Normal 29.9-35.2 [facility] Comment on above: Performed By: #### C BC ####[facility] [address]qc[address] [place], [place] [address]Dr. Arnoldo Taylor MCV (RBC) [Entitic vol] 93.1 fL Normal 81.0-99.0 [facility] Comment on above: Performed By: #### C BC ####[facility] [address] [place] [address]DrTye Taylor MONO # 0.8 103/ul Normal 0.3-0.8 [facility] Comment on above: Performed By: #### C BC ####[facility] T[address] [place], [place] [address]Dr. Arnoldo Taylor Monocytes/100 WBC (Bld) 10.0 % Normal 1.7-12.0 [facility] Comment on above: Performed By: #### C BC ####[facility] C[address] [place], [place] [address]Dr. Arnoldo Taylor NEUT # 3.3 103/ul Normal 1.4-6.5 [facility] Comment on above: Performed By: #### C BC ####[facility] [address]own[address] [place], [place] [address]Dr. Arnoldo Taylor Neutrophils/100 WBC (Bld) 43.1 % Normal 43.0-75.0 [facility] Comment on above: Performed By: #### C BC ####[facility] [address]jy[address] [place], [place] [address]Dr. Arnoldo Taylor Platelet mean volume (Bld) [Entitic vol] 9.4 fL Critically low 9.5-13.5 [facility] Comment on above: Performed By: #### C BC ####[facility] R[address]rktruv[address] [place], [place] [address]Dr. Arnoldo Brandon PLT 185 103/ul Normal 150-450 [facility] Comment on above: Performed By: #### C BC ####[facility] [address]kewn[address] [place], [place] [address]DrTye Arnoldo Brandon RBC 3.89 106/ul Critically low 4.20-5.40 [facility] Comment on above: Performed By: #### C BC ####[facility] [address]cy[address] [place], [place] [address]DrTye Arnoldo Taylor WBC 7.6 103/ul Normal 4.0-11.0 [facility] Comment on above: Performed By: #### C BC ####[facility] [address] [place] [address]Dr. Arnoldo Taylor POINT OF CARE GLUCOSEon 10-0 Glucose [Mass/Vol] 136 mg/dL Critically high 74-106 [facility] Comment on above: Performed By: #### P OCGLUC ####[facility] [address] [place] [address]Dr. Arnoldo Taylor PROF 14(COMP METB)on 022 Albumin [Mass/Vol] 2.4 g/dL Critically low 3.4-5.0 [facility] Comment on above: Performed By: #### C MP ####[facility] [address] [place] [address]Dr. Arnoldo Taylor Albumin/Globulin [Mass ratio] 0.6 {ratio} Normal [facility] Comment on above: Performed By: #### C MP ####[facility] [address] [place], [place] [address]Dr. Arnoldo Taylor ALP [Catalytic activity/Vol] 76 U/L Normal 46-116 [facility] Comment on above: Performed By: #### C MP ####[facility] [address] [place] [address]Dr. Arnoldo Taylor ALT [Catalytic activity/Vol] 12 U/L Critically low 14-59 [facility] Comment on above: Performed By: #### C MP ####[facility] [address] [place] [address]Dr. Arnoldo Taylro Anion gap [Moles/Vol] 10.5 mmol/L Normal [facility] Comment on above: Performed By: #### C MP ####[facility] [address]xf[address] [place], [place] [address]Dr. Arnoldo Taylor AST [Catalytic activity/Vol] 16 U/L Normal 15-37 [facility] Comment on above: Performed By: #### C MP ####[facility] Flaveoytmw[address] [place], [place] [address]Dr. Arnoldo Taylor Bilirubin [Mass/Vol] 0.3 mg/dL Normal 0.2-1.0 [facility] Comment on above: Performed By: #### C MP ####[facility] Kihqwbqjnl9[address] [place], [place] [address]Dr. Arnoldo Taylor Calcium [Mass/Vol] 8.5 mg/dL Normal 8.5-10.1 [facility] Comment on above: Performed By: #### C MP ####[facility] Oqvleusewf[address] [place], [place] [address]Dr. Arnoldo Taylor Chloride [Moles/Vol] 110 mmol/L Critically high 98-107 [facility] Comment on above: Performed By: #### C MP ####[facility] Cczwpvbckw[address] [place], [place] [address]Dr. Arnoldo Taylor CO2 [Moles/Vol] 26.3 mmol/L Normal 21.0-32.0 [facility] Comment on above: Performed By: #### C MP ####[facility] Bvndmtzykr336[address] [place], [place] [address]Dr. Arnoldo Taylor Creatinine [Mass/Vol] 0.82 mg/dL Normal 0.55-1.02 [facility] Comment on above: Performed By: #### C MP ####[facility] Yyjzqyrkyu04[address] [place], [place] [address]Dr. Arnoldo Brandon EGFR-AF LIBYAN >60 Normal >=60 [facility] Comment on above: Performed By: #### C MP ####[facility] Jzkxtokfqs1154[address] [place], [place] [address]Dr. Arnoldo Brandon EGFR-NON AF LIBYAN >60 Normal >=60 [facility] Comment on above: Performed By: #### C MP ####[facility] Ejplgdfdmy9[address] [place], [place] [address]Dr. Lynettesujata Brandon Globulin (S) [Mass/Vol] 4.0 g/dL Normal [facility] Comment on above: Performed By: #### C MP ####[facility] Luhmmtpmvi56[address] [place], [place] [address]Dr. Lynettesujata Brandon Glucose [Mass/Vol] 97 mg/dL Normal 74-106 [facility] Comment on above: Performed By: #### C MP ####[facility] [address]qdhzcr[address] [place] [address]Dr. Arnoldo Taylor Potassium [Moles/Vol] 3.8 mmol/L Normal 3.5-5.1 [facility] Comment on above: Performed By: #### C MP ####[facility] Gidtmzgtnh0429[address] [place], [place] [address]Dr. Arnoldo Taylor Protein [Mass/Vol] 6.4 g/dL Normal 6.4-8.2 [facility] Comment on above: Performed By: #### C MP ####[facility] Ykiutefnfm6556[address] [place], [place] [address]Dr. Arnoldo Taylor Sodium [Moles/Vol] 143 mmol/L Normal 136-145 [facility] Comment on above: Performed By: #### C MP ####[facility] Cqfwiecfjv5[address] [place], [place] [address]Dr. Arnoldo Taylor Urea nitrogen [Mass/Vol] 13.0 mg/dL Normal 7.0-18.0 [facility] Comment on above: Performed By: #### C MP ####[facility] Nwidodfxsa760[address] [place], [place] [address]Dr. Arnoldo Taylor Urea nitrogen/Creatinine [Mass ratio] 15.9 mg/mg Normal [facility] Comment on above: Performed By: #### C MP ####[facility] Zroavrkach25[address] [place], [place] [address]Dr. Arnoldo Taylor CBC AUTO DIFFon 01-31-2022 BASO # 0.0 103/ul Normal 0.0-0.1 [facility] Comment on above: Performed By: #### C BC ####[facility] Rqqanopnqq2869[address] [place], [place] [address]Dr. Arnoldo Taylor Basophils/100 WBC (Bld) 0.1 % Critically low 0.2-2.0 [facility] Comment on above: Performed By: #### C BC ####[facility] Hihagccfxv9248[address] [place], [place] [address]Dr. Arnoldo Taylor EO # 0.5 103/ul Normal 0.0-0.7 [facility] Comment on above: Performed By: #### C BC ####[facility] M[address]ynopzfj[address] [place] [address]Dr. Arnoldo Taylor Eosinophils/100 WBC (Bld) 6.6 % Normal 0.9-7.0 [facility] Comment on above: Performed By: #### C BC ####[facility] Bdbkqpcxnc2524[address] [place], [place] [address]Dr. Arnoldo Taylor Erythrocyte distribution width (RBC) [Ratio] 13.2 % Normal 11.0-15.0 [facility] Comment on above: Performed By: #### C BC ####[facility] Akbimpuuty6319[address] [place], [place] [address]Dr. Arnoldo Taylor Hematocrit (Bld) [Volume fraction] 36.7 % Normal 36.0-48.0 [facility] Comment on above: Performed By: #### C BC ####[facility] Hefnyxlamb4154[address] [place], [place] [address]Dr. Arnoldo Taylor Hemoglobin (Bld) [Mass/Vol] 11.9 g/dL Critically low 12.0-16.0 [facility] Comment on above: Performed By: #### C BC ####[facility] Fwgasxmmbg6729[address] [place], [place] [address]Dr. Arnoldo Taylor IG # 0.01 10e3/ul Normal 0.00-0.03 [facility] Comment on above: Performed By: #### C BC ####[facility] Fkmadukrse066[address] [place], [place] [address]Dr. Arnoldo Taylor IG % 0.1 % Normal 0.0-0.5 [facility] Comment on above: Performed By: #### C BC ####[facility] Jdqnrzecoz243[address] [place], [place] [address]DrTye Arnoldo Taylor LYMPH # 2.8 103/ul Normal 1.2-3.8 [facility] Comment on above: Performed By: #### C BC ####[facility] Khmyxtybbk5457[address] [place], [place] [address]Dr. Arnoldo Taylor Lymphocytes/100 WBC (Bld) 39.1 % Normal 20.5-60.0 [facility] Comment on above: Performed By: #### C BC ####[facility] Abckgconuq037[address] [place] [address]DrTye Taylor MANUAL DIFF REQ NO Normal [facility] Comment on above: Performed By: #### C BC ####[facility] Gogwssgdlq9277 [place] [address]Dr. Arnoldo Taylor MCH (RBC) [Entitic mass] 30.1 pg Normal 26.7-34.0 [facility] Comment on above: Performed By: #### C BC ####[facility] Gwyhkxntmk1389[address] [place], [place] [address]Dr. Arnoldo Taylor MCHC (RBC) [Mass/Vol] 32.4 g/dL Normal 29.9-35.2 [facility] Comment on above: Performed By: #### C BC ####[facility] Igdhyfvxju358[address] [place], [place] [address]Dr. Arnoldo Taylor MCV (RBC) [Entitic vol] 92.9 fL Normal 81.0-99.0 [facility] Comment on above: Performed By: #### C BC ####[facility] Disbuvrfnq8235[address] [place], [place] [address]Dr. Arnoldo Taylor MONO # 0.7 103/ul Normal 0.3-0.8 [facility] Comment on above: Performed By: #### C BC ####[facility] Jbzorrytro0116[address] [place], [place] [address]Dr. Arnoldo Taylor Monocytes/100 WBC (Bld) 9.5 % Normal 1.7-12.0 [facility] Comment on above: Performed By: #### C BC ####[facility] Jdxozgwgnb088[address] [place], [place] [address]DrTye Taylor NEUT # 3.2 103/ul Normal 1.4-6.5 [facility] Comment on above: Performed By: #### C BC ####[facility] Fyjsckgtsa7164[address] [place], [place] [address]DrTye Taylor Neutrophils/100 WBC (Bld) 44.6 % Normal 43.0-75.0 [facility] Comment on above: Performed By: #### C BC ####[facility] Vllnwcnbjj8604 [place] [address]Dr. Arnoldo Taylor Platelet mean volume (Bld) [Entitic vol] 9.6 fL Normal 9.5-13.5 [facility] Comment on above: Performed By: #### C BC ####[facility] Xidguvifto0747 [place] [address]Dr. Arnoldo Brandon PLT 169 103/ul Normal 150-450 [facility] Comment on above: Performed By: #### C BC ####[facility] Lkeoezsiah9216 [place] [address]Dr. Arnoldo Brandon RBC 3.95 106/ul Critically low 4.20-5.40 [facility] Comment on above: Performed By: #### C BC ####[facility] Spwpkajtfj7089 [place] [address]Dr. Arnoldo Brandon WBC 7.1 103/ul Normal 4.0-11.0 [facility] Comment on above: Performed By: #### C BC ####[facility] Rqticteglf6839[address] [place], [place] [address]Dr. Arnoldo Taylor POINT OF CARE GLUCOSEon 10-0 -2021 Glucose [Mass/Vol] 111 mg/dL Critically high 74-106 [facility] Comment on above: Performed By: #### P OCGLUC ####[facility] Hojpobifak20[address] [place] [address]Dr. Arnoldo Taylor Glucose [Mass/Vol] 91 mg/dL Normal 74-106 [facility] Comment on above: Performed By: #### P OCGLUC ####[facility] Jfqbblelbx6789[address] [place], [place] [address]Dr. Arnoldo Taylor Glucose [Mass/Vol] 114 mg/dL Critically high 74-106 [facility] Comment on above: Performed By: #### P OCGLUC ####[facility] Ornmcplqfa3967[address] [place], [place] [address]DrTye Taylor PROF 14(COMP METB)on 022 Albumin [Mass/Vol] 2.5 g/dL Critically low 3.4-5.0 [facility] Comment on above: Performed By: #### C MP ####[facility] Expamizuyw2643 [place] [address]Dr. Arnoldo Taylor Albumin/Globulin [Mass ratio] 0.6 {ratio} Normal [facility] Comment on above: Performed By: #### C MP ####[facility] Snbjojxrka2565[address] [place], [place] [address]Dr. Arnoldo Taylor ALP [Catalytic activity/Vol] 77 U/L Normal 46-116 [facility] Comment on above: Performed By: #### C MP ####[facility] Oikftwtoar7326[address] [place], [place] [address]Dr. Arnoldo Taylor ALT [Catalytic activity/Vol] 14 U/L Normal 14-59 [facility] Comment on above: Performed By: #### C MP ####[facility] Lbsijnoobv5255[address] [place], [place] [address]Dr. Arnoldo Taylor Anion gap [Moles/Vol] 10.1 mmol/L Normal [facility] Comment on above: Performed By: #### C MP ####[facility] Bgkhmokbkm7194[address] [place], [place] [address]Dr. Arnoldo Taylor AST [Catalytic activity/Vol] 27 U/L Normal 15-37 [facility] Comment on above: Performed By: #### C MP ####[facility] Rzmdmxtwlf388[address] [place], [place] [address]Dr. Arnoldo Taylor Bilirubin [Mass/Vol] 0.4 mg/dL Normal 0.2-1.0 [facility] Comment on above: Performed By: #### C MP ####[facility] Fnmcdmdsqf0535[address] [place], [place] [address]Dr. Arnoldo Taylor Calcium [Mass/Vol] 8.6 mg/dL Normal 8.5-10.1 [facility] Comment on above: Performed By: #### C MP ####[facility] Zrhnhqbzcn637[address] [place], [place] [address]Dr. Arnoldo Taylor Chloride [Moles/Vol] 108 mmol/L Critically high 98-107 [facility] Comment on above: Performed By: #### C MP ####[facility] Iewtllasmy8545 [place] [address]Dr. Arnoldo Taylor CO2 [Moles/Vol] 25.7 mmol/L Normal 21.0-32.0 [facility] Comment on above: Performed By: #### C MP ####[facility] Diaptyklfe4575 [place] [address]Dr. Arnoldo Taylor Creatinine [Mass/Vol] 0.81 mg/dL Normal 0.55-1.02 [facility] Comment on above: Performed By: #### C MP ####[facility] Dilboeenet2607 [place] [address]Dr. Arnoldo Taylor EGFR-AF LIBYAN >60 Normal >=60 [facility] Comment on above: Performed By: #### C MP ####[facility] Mxtsaobjbo6133 [place] [address]Dr. Arnoldo Taylor EGFR-NON AF LIBYAN >60 Normal >=60 [facility] Comment on above: Performed By: #### C MP ####[facility] Zyzkbbijek7914 [place] [address]Dr. Arnoldo Taylor Globulin (S) [Mass/Vol] 4.2 g/dL Normal [facility] Comment on above: Performed By: #### C MP ####[facility] Tfadniteei0734 [place] [address]Dr. Arnoldo Brandon Glucose [Mass/Vol] 90 mg/dL Normal 74-106 [facility] Comment on above: Performed By: #### C MP ####[facility] Xsqsbhqxxd4487 [place] [address]Dr. Arnoldo Taylor Potassium [Moles/Vol] 3.8 mmol/L Normal 3.5-5.1 [facility] Comment on above: Performed By: #### C MP ####[facility] Dtyrllwhwf1843 [place] [address]Dr. Arnoldo Brandon Protein [Mass/Vol] 6.7 g/dL Normal 6.4-8.2 [facility] Comment on above: Performed By: #### C MP ####[facility] Syudipkulp[address] [place], [place] [address]Dr. Arnoldo Brandon Sodium [Moles/Vol] 140 mmol/L Normal 136-145 [facility] Comment on above: Performed By: #### C MP ####[facility] Bdgvbunvxm113[address] [place], [place] [address]Dr. Arnoldo Brandon Urea nitrogen [Mass/Vol] 10.0 mg/dL Normal 7.0-18.0 [facility] Comment on above: Performed By: #### C MP ####[facility] Airqczmcuq5679[address] [place], [place] [address]Dr. Arnoldo Taylor Urea nitrogen/Creatinine [Mass ratio] 12.3 mg/mg Normal [facility] Comment on above: Performed By: #### C MP ####[facility] Akkiigtsod9677[address] [place], [place] [address]Dr. Arnoldo Taylor CBC AUTO DIFFon 01-30-2022 BASO # 0.0 103/ul Normal 0.0-0.1 [facility] Comment on above: Performed By: #### C BC ####[facility] Yrhysxgpfg5788[address] [place], [place] [address]Dr. Arnoldo Taylor Basophils/100 WBC (Bld) 0.1 % Critically low 0.2-2.0 [facility] Comment on above: Performed By: #### C BC ####[facility] Hhhanuttrb0996[address] [place], [place] [address]Dr. Lynettesujata Brandon EO # 0.6 103/ul Normal 0.0-0.7 [facility] Comment on above: Performed By: #### C BC ####[facility] Gqhchlrwlz5567[address] [place], [place] [address]Dr. Arnoldo Taylor Eosinophils/100 WBC (Bld) 8.8 % Critically high 0.9-7.0 [facility] Comment on above: Performed By: #### C BC ####[facility] Zsjnpggdph9837[address] [place], [place] [address]Dr. Arnoldo Taylor Erythrocyte distribution width (RBC) [Ratio] 13.2 % Normal 11.0-15.0 [facility] Comment on above: Performed By: #### C BC ####[facility] Eirybzhbgx9868 [place] [address]Dr. Arnoldo Taylor Hematocrit (Bld) [Volume fraction] 34.7 % Critically low 36.0-48.0 [facility] Comment on above: Performed By: #### C BC ####[facility] Subckqjimf036[address] [place], [place] [address]Dr. Arnoldo Taylor Hemoglobin (Bld) [Mass/Vol] 11.2 g/dL Critically low 12.0-16.0 [facility] Comment on above: Performed By: #### C BC ####[facility] Kwylbaaxfa93[address] [place], [place] [address]Dr. Lynettesujata Taylor IG # 0.02 10e3/ul Normal 0.00-0.03 [facility] Comment on above: Performed By: #### C BC ####[facility] Tjtnlmztup3038[address] [place], [place] [address]Dr. Arnoldo Brandon IG % 0.3 % Normal 0.0-0.5 [facility] Comment on above: Performed By: #### C BC ####[facility] Pudkyimmui5586[address] [place], [place] [address]Dr. Arnoldo Brandon LYMPH # 2.0 103/ul Normal 1.2-3.8 [facility] Comment on above: Performed By: #### C BC ####[facility] Nsuljrvmni0021[address] [place], [place] [address]Dr. Arnoldo Brandon Lymphocytes/100 WBC (Bld) 28.4 % Normal 20.5-60.0 [facility] Comment on above: Performed By: #### C BC ####[facility] Thegxymwqw5256[address] [place], [place] [address]Dr. Lynettesujata Taylor MANUAL DIFF REQ NO Normal [facility] Comment on above: Performed By: #### C BC ####[facility] Tydsdtlztm2319[address] [place], [place] [address]Dr. Lynettesujata Taylor MCH (RBC) [Entitic mass] 30.0 pg Normal 26.7-34.0 [facility] Comment on above: Performed By: #### C BC ####[facility] Ybudfhlnbu5618 [place] [address]DrTye Taylor MCHC (RBC) [Mass/Vol] 32.3 g/dL Normal 29.9-35.2 [facility] Comment on above: Performed By: #### C BC ####[facility] Hqkctadapi3024[address] [place], [place] [address]DrTye Taylor MCV (RBC) [Entitic vol] 93.0 fL Normal 81.0-99.0 [facility] Comment on above: Performed By: #### C BC ####[facility] Acsmdwnvzo2093[address] [place], [place] [address]DrTye Taylor MONO # 0.8 103/ul Normal 0.3-0.8 [facility] Comment on above: Performed By: #### C BC ####[facility] Vwyawgsedm45[address] [place], [place] [address]DrTye Taylor Monocytes/100 WBC (Bld) 11.0 % Normal 1.7-12.0 [facility] Comment on above: Performed By: #### C BC ####[facility] Tyhhjdmebi518[address] [place], [place] [address]DrTye Taylor NEUT # 3.6 103/ul Normal 1.4-6.5 [facility] Comment on above: Performed By: #### C BC ####[facility] Ewiyerdfbn7167[address] [place], [place] [address]DrTye Taylor Neutrophils/100 WBC (Bld) 51.4 % Normal 43.0-75.0 [facility] Comment on above: Performed By: #### C BC ####[facility] Frmkwxhmwt3863[address] [place], [place] [address]DrTye Taylor Platelet mean volume (Bld) [Entitic vol] 9.2 fL Critically low 9.5-13.5 [facility] Comment on above: Performed By: #### C BC ####[facility] Ksvlzmpytw9975[address] [place], [place] [address]Dr. Arnoldo Taylor PLT 150 103/ul Normal 150-450 [facility] Comment on above: Performed By: #### C BC ####[facility] Xxsxsmeayg4852 [place] [address]Dr. Arnoldo Taylor RBC 3.73 106/ul Critically low 4.20-5.40 [facility] Comment on above: Performed By: #### C BC ####[facility] Qtdwzhqstu8657 [place] [address]Dr. Arnoldo Taylor WBC 7.0 103/ul Normal 4.0-11.0 [facility] Comment on above: Performed By: #### C BC ####[facility] Qmrulmugfu5744 [place] [address]Dr. Arnoldo Brandon POINT OF CARE GLUCOSEon 10-0 Glucose [Mass/Vol] 90 mg/dL Normal 74-106 [facility] Comment on above: Performed By: #### P OCGLUC ####[facility] Mhzckboyva4365 [place] [address]Dr. Arnoldo Taylor Glucose [Mass/Vol] 137 mg/dL Critically high 74-106 [facility] Comment on above: Performed By: #### P OCGLUC ####[facility] Njpplflmzx254[address] [place], [place] [address]Dr. Arnoldo Talyor Glucose [Mass/Vol] 91 mg/dL Normal 74-106 [facility] Comment on above: Performed By: #### P OCGLUC ####[facility] Ekzjduwqga7128[address] [place], [place] [address]Dr. Arnoldo Brandon PROF 14(COMP METB)on 022 Albumin [Mass/Vol] 2.5 g/dL Critically low 3.4-5.0 [facility] Comment on above: Performed By: #### C MP ####[facility] Befmkliyzr7656[address] [place], [place] [address]Dr. Arnoldo Taylor Albumin/Globulin [Mass ratio] 0.7 {ratio} Normal [facility] Comment on above: Performed By: #### C MP ####[facility] Wznljcwvph4801 [place] [address]Dr. Arnoldo Taylor ALP [Catalytic activity/Vol] 83 U/L Normal 46-116 [facility] Comment on above: Performed By: #### C MP ####[facility] Hgrnpknpzr1305 [place] [address]Dr. Arnoldo Taylor ALT [Catalytic activity/Vol] 14 U/L Normal 14-59 [facility] Comment on above: Performed By: #### C MP ####[facility] Yuafdpnqth4929 [place] [address]Dr. Arnoldo Brandon Anion gap [Moles/Vol] 11.3 mmol/L Normal [facility] Comment on above: Performed By: #### C MP ####[facility] Jitshqcbou36[address] [place], [place] [address]Dr. Arnoldo Brandon AST [Catalytic activity/Vol] 16 U/L Normal 15-37 [facility] Comment on above: Performed By: #### C MP ####[facility] Ngcemstsug8876[address] [place], [place] [address]Dr. Arnoldo Brandon Bilirubin [Mass/Vol] 0.3 mg/dL Normal 0.2-1.0 [facility] Comment on above: Performed By: #### C MP ####[facility] Qgiivnccla1225[address] [place], [place] [address]Dr. Arnoldo Brandon Calcium [Mass/Vol] 8.5 mg/dL Normal 8.5-10.1 [facility] Comment on above: Performed By: #### C MP ####[facility] Yozsnwspnx6699 [place] [address]Dr. Arnoldo Brandon Chloride [Moles/Vol] 110 mmol/L Critically high 98-107 [facility] Comment on above: Performed By: #### C MP ####[facility] Behdofejtr7304[address] [place], [place] [address]Dr. Arnoldo Taylor CO2 [Moles/Vol] 25.8 mmol/L Normal 21.0-32.0 [facility] Comment on above: Performed By: #### C MP ####[facility] Qawlwclyum6649 [place] [address]Dr. Yisujata Taylor Creatinine [Mass/Vol] 0.83 mg/dL Normal 0.55-1.02 [facility] Comment on above: Performed By: #### C MP ####[facility] Fmtmjcmmcn9623 [place] [id number]. Arnoldo Taylor EGFR-AF LIBYAN >60 Normal >=60 [facility] Comment on above: Performed By: #### C MP ####[facility] Bckwrtxvmt4817 [place] [id number]. Arnoldo Brandon EGFR-NON AF LIBYAN >60 Normal >=60 [facility] Comment on above: Performed By: #### C MP ####[facility] Dewkfgewkx3142 [place] [id number]. Arnoldo Brandon Globulin (S) [Mass/Vol] 3.8 g/dL Normal [facility] Comment on above: Performed By: #### C MP ####[facility] Dtwtpwbaag6464 [place] [address]Dr. Arnoldo Brandon Glucose [Mass/Vol] 98 mg/dL Normal 74-106 [facility] Comment on above: Performed By: #### C MP ####[facility] Wwzirgnhmr7036 [place] [address]Dr. Arnoldo Brandon Potassium [Moles/Vol] 3.1 mmol/L Critically low 3.5-5.1 [facility] Comment on above: Performed By: #### C MP ####[facility] Yfxssktefc6457 [place] [address]Dr. Arnoldo Brandon Protein [Mass/Vol] 6.3 g/dL Critically low 6.4-8.2 [facility] Comment on above: Performed By: #### C MP ####[facility] Byjpvvnmqt5182 [place] [address]Dr. Arnoldo Brandon Sodium [Moles/Vol] 144 mmol/L Normal 136-145 [facility] Comment on above: Performed By: #### C MP ####[facility] Pwojlrjtgm6157 [place] [address]Dr. Arnoldo Brandon Urea nitrogen [Mass/Vol] 8.0 mg/dL Normal 7.0-18.0 [facility] Comment on above: Performed By: #### C MP ####[facility] Vvdgsxubay4617[address] [place], [place] [address]Dr. Arnoldo Taylor Urea nitrogen/Creatinine [Mass ratio] 9.6 mg/mg Normal [facility] Comment on above: Performed By: #### C MP ####[facility] Qsmfvdutak0099[address] [place], [place] [address]Dr. Arnoldo Taylor CBC AUTO DIFFon 01-29-2022 BASO # 0.0 103/ul Normal 0.0-0.1 [facility] Comment on above: Performed By: #### C BC ####[facility] Fjpvmbfdjw134[address] [place], [place] [address]Dr. Arnoldo Taylor Basophils/100 WBC (Bld) 0.2 % Normal 0.2-2.0 [facility] Comment on above: Performed By: #### C BC ####[facility] Gsbcfdkars6794[address] [place], [place] [address]DrTye Taylor EO # 0.6 103/ul Normal 0.0-0.7 [facility] Comment on above: Performed By: #### C BC ####[facility] Zivijtrzkn0515[address] [place], [place] [address]Dr. Arnoldo Taylor Eosinophils/100 WBC (Bld) 9.9 % Critically high 0.9-7.0 [facility] Comment on above: Performed By: #### C BC ####[facility] Yxlatdfbnv523[address] [place], [place] [address]Dr. Arnoldo Taylor Erythrocyte distribution width (RBC) [Ratio] 13.7 % Normal 11.0-15.0 [facility] Comment on above: Performed By: #### C BC ####[facility] Aonmtbdfzk7593[address] [place], [place] [address]DrTye Taylor Hematocrit (Bld) [Volume fraction] 32.0 % Critically low 36.0-48.0 [facility] Comment on above: Performed By: #### C BC ####[facility] Mhqvtmlkcw44[address] [place], [place] [address]Dr. Arnoldo Taylor Hemoglobin (Bld) [Mass/Vol] 10.2 g/dL Critically low 12.0-16.0 [facility] Comment on above: Performed By: #### C BC ####[facility] Quxxixknpk6886 [place] [address]Dr. Arnoldo Taylor IG # 0.03 10e3/ul Normal 0.00-0.03 [facility] Comment on above: Performed By: #### C BC ####[facility] Zpnsplnnmt8742 [place] [address]Dr. Arnoldo Taylor IG % 0.5 % Normal 0.0-0.5 [facility] Comment on above: Performed By: #### C BC ####[facility] Rcmukodqhw448[address] [place], [place] [address]DrTye Taylor LYMPH # 2.0 103/ul Normal 1.2-3.8 [facility] Comment on above: Performed By: #### C BC ####[facility] Maalzglzgu64[address] [place], [place] [address]Dr. Arnoldo Taylor Lymphocytes/100 WBC (Bld) 32.9 % Normal 20.5-60.0 [facility] Comment on above: Performed By: #### C BC ####[facility] Gsnexqdprh[address] [place], [place] [address]DrTye Taylor MANUAL DIFF REQ NO Normal [facility] Comment on above: Performed By: #### C BC ####[facility] Dypjgrgigv6[address] [place], [place] [address]Dr. Arnoldo Taylor MCH (RBC) [Entitic mass] 30.2 pg Normal 26.7-34.0 [facility] Comment on above: Performed By: #### C BC ####[facility] [address]qsz[address] [place], [place] [address]Dr. Arnoldo Taylor MCHC (RBC) [Mass/Vol] 31.9 g/dL Normal 29.9-35.2 [facility] Comment on above: Performed By: #### C BC ####[facility] Ubmojknkud[address] [place], [place] [address]Dr. Arnoldo Taylor MCV (RBC) [Entitic vol] 94.7 fL Normal 81.0-99.0 [facility] Comment on above: Performed By: #### C BC ####[facility] W[address]pltfhut[address] [place] [address]DrTye Arnoldo Taylor MONO # 0.7 103/ul Normal 0.3-0.8 [facility] Comment on above: Performed By: #### C BC ####[facility] Wdnidmrlyw0602 [place] [address]DrTye Taylor Monocytes/100 WBC (Bld) 11.7 % Normal 1.7-12.0 [facility] Comment on above: Performed By: #### C BC ####[facility] Zwyieuusix5[address] [place], [place] [address]Dr. Arnoldo Taylor NEUT # 2.8 103/ul Normal 1.4-6.5 [facility] Comment on above: Performed By: #### C BC ####[facility] Qxnzxyfjym10[address] [place], [place] [address]Dr. Arnoldo Taylor Neutrophils/100 WBC (Bld) 44.8 % Normal 43.0-75.0 [facility] Comment on above: Performed By: #### C BC ####[facility] Bqwpmjceet[address] [place], [place] [address]Dr. Lynettesujata Taylor Platelet mean volume (Bld) [Entitic vol] 9.3 fL Critically low 9.5-13.5 [facility] Comment on above: Performed By: #### C BC ####[facility] Svzcnfyhjw55[address] [place] [address]Dr. Arnoldo Taylor PLT 130 103/ul Critically low 150-450 [facility] Comment on above: Performed By: #### C BC ####[facility] Fvxtuhxrxc74[address] [place], [place] [address]Dr. Arnoldo Taylor RBC 3.38 106/ul Critically low 4.20-5.40 [facility] Comment on above: Performed By: #### C BC ####[facility] Bmwtesygwi[address] [place], [place] [address]Dr. Arnoldo Taylor WBC 6.2 103/ul Normal 4.0-11.0 [facility] Comment on above: Performed By: #### C BC ####[facility] Lxbgxnaveo[address] [place] [address]Dr. Arnoldo Taylor POINT OF CARE GLUCOSEon 01-02 Glucose [Mass/Vol] 97 mg/dL Normal 74-106 [facility] Comment on above: Performed By: #### P OCGLUC ####[facility] Mqdtavlrad05[address] [place] [address]Dr. Arnoldo Taylor Glucose [Mass/Vol] 95 mg/dL Normal 74-106 [facility] Comment on above: Performed By: #### P OCGLUC ####[facility] Nwyrpwliye[address] [place], [place] [address]Dr. Arnoldo Taylor Glucose [Mass/Vol] 94 mg/dL Normal 74-106 [facility] Comment on above: Performed By: #### P OCGLUC ####[facility] Uqypjgdzij2004[address] [place], [place] [address]Dr. Arnoldo Taylor PROF 14(COMP METB)on 022 Albumin [Mass/Vol] 2.4 g/dL Critically low 3.4-5.0 [facility] Comment on above: Performed By: #### C MP ####[facility] Wjfyombnek[address] [place] [address]Dr. Arnoldo Taylor Albumin/Globulin [Mass ratio] 0.6 {ratio} Normal [facility] Comment on above: Performed By: #### C MP ####[facility] Rkslxhbbae26[address] [place] [address]Dr. Arnoldo Taylor ALP [Catalytic activity/Vol] 79 U/L Normal 46-116 [facility] Comment on above: Performed By: #### C MP ####[facility] Nqqmjlkssg350[address] [place], [place] [address]Dr. Arnoldo Taylor ALT [Catalytic activity/Vol] 14 U/L Normal 14-59 [facility] Comment on above: Performed By: #### C MP ####[facility] Innypsdqmv8[address] [place], [place] [address]Dr. Arnoldo Taylor Anion gap [Moles/Vol] 13.2 mmol/L Normal [facility] Comment on above: Performed By: #### C MP ####[facility] Pvmkoeavvf034[address] [place] [address]Dr. Arnoldo Brandon AST [Catalytic activity/Vol] 16 U/L Normal 15-37 [facility] Comment on above: Performed By: #### C MP ####[facility] Nyzdgtkwka[address] [place], [place] [address]Dr. Arnoldo Brandon Bilirubin [Mass/Vol] 0.3 mg/dL Normal 0.2-1.0 [facility] Comment on above: Performed By: #### C MP ####[facility] Ksvexttqmq[address] [place], [place] [address]Dr. Arnoldo Brandon Calcium [Mass/Vol] 8.6 mg/dL Normal 8.5-10.1 [facility] Comment on above: Performed By: #### C MP ####[facility] Wgpifvgvzc038[address] [place], [place] [address]Dr. Arnoldo Taylor Chloride [Moles/Vol] 113 mmol/L Critically high 98-107 [facility] Comment on above: Performed By: #### C MP ####[facility] Lpeemmffjl793[address] [place], [place] [address]Dr. Arnoldo Brandon CO2 [Moles/Vol] 22.2 mmol/L Normal 21.0-32.0 [facility] Comment on above: Performed By: #### C MP ####[facility] Szwyggovmj0067[address] [place], [place] [address]Dr. Lynettesujata Taylor Creatinine [Mass/Vol] 0.86 mg/dL Normal 0.55-1.02 [facility] Comment on above: Performed By: #### C MP ####[facility] Xldiixwsql3316[address] [place], [place] [address]Dr. Arnoldo Taylor EGFR-AF LIBYAN >60 Normal >=60 [facility] Comment on above: Performed By: #### C MP ####[facility] Hhomwawqce5[address] [place], [place] [address]Dr. Arnoldo Taylor EGFR-NON AF LIBYAN >60 Normal >=60 [facility] Comment on above: Performed By: #### C MP ####[facility] Ctfwzatfge69[address] [place] [address]Dr. Arnoldo Taylor Globulin (S) [Mass/Vol] 3.8 g/dL Normal [facility] Comment on above: Performed By: #### C MP ####[facility] Etifnrqvmq05[address] [place] [id number]. Arnoldo Taylor Glucose [Mass/Vol] 97 mg/dL Normal 74-106 [facility] Comment on above: Performed By: #### C MP ####[facility] Elsehkbzdm5003 [place] [address]Dr. Arnoldo Taylor Potassium [Moles/Vol] 3.4 mmol/L Critically low 3.5-5.1 [facility] Comment on above: Performed By: #### C MP ####[facility] Myejtcozeg4[address] [place], [place] [address]Dr. Arnoldo Taylor Protein [Mass/Vol] 6.2 g/dL Critically low 6.4-8.2 [facility] Comment on above: Performed By: #### C MP ####[facility] Zzgusmskty264[address] [place], [place] [address]Dr. Arnoldo Taylor Sodium [Moles/Vol] 145 mmol/L Normal 136-145 [facility] Comment on above: Performed By: #### C MP ####[facility] Sdaqngjkhc9426 [place] [address]Dr. Arnoldo Taylor Urea nitrogen [Mass/Vol] 8.0 mg/dL Normal 7.0-18.0 [facility] Comment on above: Performed By: #### C MP ####[facility] Ljdrwyjyqg084[address] [place], [place] [address]Dr. Arnoldo Taylor Urea nitrogen/Creatinine [Mass ratio] 9.3 mg/mg Normal [facility] Comment on above: Performed By: #### C MP ####[facility] Pyjvorsjqw8554[address] [place], [place] [address]Dr. Lynettesujata Brandon T4 LABCORPon 01-29-2022 T4 [Mass/Vol] 8.5 ug/dL Normal 4.5-12.0 [facility] Comment on above: Performed By: #### T 4LC ####[facility] Bdrokbjyai[address] [place] [address]Dr. Arnoldo Taylor CARDIAC DIANA 3-6on 2 CK [Catalytic activity/Vol] 102 U/L Normal 26-192 [facility] Comment on above: Performed By: #### C MREP ####[facility] Lpudurnraf[address] [place] [address]Dr. Arnoldo Taylor CK.MB [Mass/Vol] 2.04 ng/mL Normal <=3.60 [facility] Comment on above: Performed By: #### C MREP ####[facility] Wqbrqxbwoy12[address] [place] [address]Dr. Arnoldo Taylor HSTROP 53.7 pg/mL Critically high 4.0-51.3 [facility] Comment on above: Result Comment: CUT- OFF POINTS HAVE BEEN ESTABLISHED BASED ON THE FOURTH UNIVERSAL DEFINITIONS OF MYOCARDIALINFARCTION. THE UPPER REFERENCE LIMIT (URL) OF TROPONIN, DEFINED THE 99TH PERCENTILE OFcTnI DISTRIBUTION IN A REFERENCE POPULATION, HAS BEEN CONFIRMED THE DECISION THRESHOLDFOR GA DIAGNOSIS. Performed By: #### C MREP ####[facility] Bl[address]ecaaer[address] [place] [address]Dr. Arnoldo Taylor CK [Catalytic activity/Vol] 107 U/L Normal 26-192 [facility] Comment on above: Performed By: #### C MREP ####[facility] Xsowpavwdz2170 [place] [address]Dr. Arnoldo Taylor CK.MB [Mass/Vol] 2.23 ng/mL Normal <=3.60 [facility] Comment on above: Performed By: #### C MREP ####[facility] Gnnedxwplv[address] [place], [place] [address]Dr. Arnoldo Taylor HSTROP 66.7 pg/mL Critically high 4.0-51.3 [facility] Comment on above: Result Comment: CUT- OFF POINTS HAVE BEEN ESTABLISHED BASED ON THE FOURTH UNIVERSAL DEFINITIONS OF MYOCARDIALINFARCTION. THE UPPER REFERENCE LIMIT (URL) OF TROPONIN, DEFINED THE 99TH PERCENTILE OFcTnI DISTRIBUTION IN A REFERENCE POPULATION, HAS BEEN CONFIRMED THE DECISION THRESHOLDFOR GA DIAGNOSIS. Performed By: #### C MREP ####[facility] Wyzrokwhfm5[address] [place] [address]Dr. Arnoldo Taylor CBC AUTO DIFFon 01-28-2022 BASO # 0.0 103/ul Normal 0.0-0.1 [facility] Comment on above: Performed By: #### C BC ####[facility] Uneugruoqe1624[address] [place], [place] [address]Dr. Arnoldo Taylor Basophils/100 WBC (Bld) 0.1 % Critically low 0.2-2.0 [facility] Comment on above: Performed By: #### C BC ####[facility] Igymjdufyy08[address] [place], [place] [address]Dr. Arnoldo Taylor EO # 0.5 103/ul Normal 0.0-0.7 [facility] Comment on above: Performed By: #### C BC ####[facility] Glrsmhmwvm[address] [place], [place] [address]Dr. Arnoldo Taylor Eosinophils/100 WBC (Bld) 5.9 % Normal 0.9-7.0 [facility] Comment on above: Performed By: #### C BC ####[facility] Qnuiebamog14[address] [place], [place] [address]Dr. Arnoldo Taylor Erythrocyte distribution width (RBC) [Ratio] 13.8 % Normal 11.0-15.0 [facility] Comment on above: Performed By: #### C BC ####[facility] Hlijupfkpv27[address] [place], [place] [address]Dr. Arnoldo Taylor Hematocrit (Bld) [Volume fraction] 30.4 % Critically low 36.0-48.0 [facility] Comment on above: Performed By: #### C BC ####[facility] Uxvoqxitrj2[address] [place], [place] [address]Dr. Arnoldo Taylor Hemoglobin (Bld) [Mass/Vol] 9.8 g/dL Critically low 12.0-16.0 [facility] Comment on above: Performed By: #### C BC ####[facility] [address]qifvfytvg79[address] [place] [id number]. Arnoldo Taylor IG # 0.01 10e3/ul Normal 0.00-0.03 [facility] Comment on above: Performed By: #### C BC ####[facility] Gjdxvxuudx3586 [place] [address]Dr. Arnoldo Taylor IG % 0.1 % Normal 0.0-0.5 [facility] Comment on above: Performed By: #### C BC ####[facility] Sicuhjsmiq[address] [place] [address]Dr. Arnoldo Brandon LYMPH # 3.4 103/ul Normal 1.2-3.8 [facility] Comment on above: Performed By: #### C BC ####[facility] Jvfggyxxtg9516 [place] [address]Dr. Arnoldo Taylor Lymphocytes/100 WBC (Bld) 44.4 % Normal 20.5-60.0 [facility] Comment on above: Performed By: #### C BC ####[facility] Whpfyoavjt3406 [place] [address]Dr. Lynettesujata Taylor MANUAL DIFF REQ NO Normal [facility] Comment on above: Performed By: #### C BC ####[facility] Mmfitmksga[address] [place] [address]Dr. Arnoldo Brandon MCH (RBC) [Entitic mass] 30.1 pg Normal 26.7-34.0 [facility] Comment on above: Performed By: #### C BC ####[facility] Nmsthafnkn0520 [place] [address]Dr. Arnoldo Brandon MCHC (RBC) [Mass/Vol] 32.2 g/dL Normal 29.9-35.2 [facility] Comment on above: Performed By: #### C BC ####[facility] Jbbcxzldrt1783 [place] [address]Dr. Arnoldo Brandon MCV (RBC) [Entitic vol] 93.3 fL Normal 81.0-99.0 [facility] Comment on above: Performed By: #### C BC ####[facility] Bhsmnriafi6671 [place] [id number]. Arnoldo Taylor MONO # 0.8 103/ul Normal 0.3-0.8 [facility] Comment on above: Performed By: #### C BC ####[facility] Bbkiafsswa3826 [place] [address]Dr. Arnoldo Taylor Monocytes/100 WBC (Bld) 10.4 % Normal 1.7-12.0 [facility] Comment on above: Performed By: #### C BC ####[facility] Fpogupnmcw6145 [place] [address]Dr. Arnoldo Taylor NEUT # 3.0 103/ul Normal 1.4-6.5 [facility] Comment on above: Performed By: #### C BC ####[facility] Xykutrkktu6271 [place] [address]Dr. Arnoldo Taylor Neutrophils/100 WBC (Bld) 39.1 % Critically low 43.0-75.0 [facility] Comment on above: Performed By: #### C BC ####[facility] Ogjyijlrsw2901 [place] [id number]. Arnoldo Taylor Platelet mean volume (Bld) [Entitic vol] 9.5 fL Normal 9.5-13.5 [facility] Comment on above: Performed By: #### C BC ####[facility] Seflpspzle28[address] [place] [id number]. Arnoldo Taylor PLT 108 103/ul Critically low 150-450 [facility] Comment on above: Performed By: #### C BC ####[facility] Yybnuoibiu8608 [place] [address]Dr. Arnoldo Taylor RBC 3.26 106/ul Critically low 4.20-5.40 [facility] Comment on above: Performed By: #### C BC ####[facility] Jwuhxpauhc1290 [place] [address]Dr. Arnoldo Taylor WBC 7.6 103/ul Normal 4.0-11.0 [facility] Comment on above: Performed By: #### C BC ####[facility] Xdgmsjeour8625 [place] [id number]. Arnoldo Taylor CTA CHEST WO W CONon 022 CTA CHEST WO W CON Normal [facility] POINT OF CARE GLUCOSEon 01-01 Glucose [Mass/Vol] 88 mg/dL Normal 74-106 [facility] Comment on above: Performed By: #### P OCGLUC ####[facility] Jpfubqwifm1204 [place] [address]Dr. Arnoldo Taylor Glucose [Mass/Vol] 95 mg/dL Normal 74-106 [facility] Comment on above: Performed By: #### P OCGLUC ####[facility] Nvygjyythv3152 [place] [address]Dr. Arnoldo Taylor Glucose [Mass/Vol] 117 mg/dL Critically high 74-106 [facility] Comment on above: Performed By: #### P OCGLUC ####[facility] Bjvpqhfcmq8354 [place] [address]Dr. Arnoldo Taylor PROF 14(COMP METB)on 022 Albumin [Mass/Vol] 2.4 g/dL Critically low 3.4-5.0 [facility] Comment on above: Performed By: #### C MP ####[facility] Ltrmagscun0040 [place] [address]Dr. Arnoldo Taylor Albumin/Globulin [Mass ratio] 0.7 {ratio} [facility] Comment on above: Performed By: #### C MP ####[facility] Lnmniyggup5927 [place] [address]Dr. Arnoldo Taylor ALP [Catalytic activity/Vol] 75 U/L Normal 46-116 [facility] Comment on above: Performed By: #### C MP ####[facility] Ddkwwlyhhd0746 [place] [address]Dr. Arnoldo Taylor ALT [Catalytic activity/Vol] 14 U/L Normal 14-59 [facility] Comment on above: Performed By: #### C MP ####[facility] Cfxoiteyyh5134 [place] [address]Dr. Arnoldo Taylor Anion gap [Moles/Vol] 13.0 mmol/L Normal [facility] Comment on above: Performed By: #### C MP ####[facility] Zyryqpsama8770 [place] [id number]. Arnoldo Taylor AST [Catalytic activity/Vol] 15 U/L Normal 15-37 [facility] Comment on above: Performed By: #### C MP ####[facility] Cnlswwgdcd7690 [place] [address]Dr. Arnoldo Taylor Bilirubin [Mass/Vol] 0.3 mg/dL Normal 0.2-1.0 [facility] Comment on above: Performed By: #### C MP ####[facility] Cyqdzlvrnz4311 [place] [address]Dr. Arnoldo Taylor Calcium [Mass/Vol] 8.2 mg/dL Critically low 8.5-10.1 [facility] Comment on above: Performed By: #### C MP ####[facility] Ioixhzmujv18[address] [place], [place] [address]Dr. Arnoldo Taylor Chloride [Moles/Vol] 111 mmol/L Critically high 98-107 [facility] Comment on above: Performed By: #### C MP ####[facility] Jyhmezadym5[address] [place], [place] [address]Dr. Arnoldo Taylor CO2 [Moles/Vol] 21.3 mmol/L Normal 21.0-32.0 [facility] Comment on above: Performed By: #### C MP ####[facility] Lncostdyhd1836[address] [place], [place] [address]Dr. Arnoldo Taylor Creatinine [Mass/Vol] 0.96 mg/dL Normal 0.55-1.02 [facility] Comment on above: Performed By: #### C MP ####[facility] Irqrlsozif19[address] [place], [place] [id number]. Lynettesujata Brandon EGFR-AF LIBYAN >60 Normal >=60 [facility] Comment on above: Performed By: #### C MP ####[facility] Pbwcmgggdi[address] [place], [place] [address]Dr. Arnoldo Taylor EGFR-NON AF LIBYAN 56 mL/min/1.73m2 Critically low >=60 [facility] Comment on above: Performed By: #### C MP ####[facility] Qsaecgdomq2455 [place] [address]Dr. Arnoldo Taylor Globulin (S) [Mass/Vol] 3.4 g/dL Normal [facility] Comment on above: Performed By: #### C MP ####[facility] Bwyzidzikj6755 [place] [id number]. Arnoldo Taylor Glucose [Mass/Vol] 97 mg/dL Normal 74-106 [facility] Comment on above: Performed By: #### C MP ####[facility] Epvwcsheck4173 [place] [address]Dr. Arnoldo Taylor Potassium [Moles/Vol] 3.3 mmol/L Critically low 3.5-5.1 [facility] Comment on above: Performed By: #### C MP ####[facility] Vmkpdeqfzn5267 [place] [address]Dr. Arnoldo Taylor Protein [Mass/Vol] 5.8 g/dL Critically low 6.4-8.2 [facility] Comment on above: Performed By: #### C MP ####[facility] Bihuvsmemk1481 [place] [address]Dr. Arnoldo Taylor Sodium [Moles/Vol] 142 mmol/L Normal 136-145 [facility] Comment on above: Performed By: #### C MP ####[facility] Zuleqmhmjw1676 [place] [address]Dr. Arnoldo Taylor Urea nitrogen [Mass/Vol] 12.0 mg/dL Normal 7.0-18.0 [facility] Comment on above: Performed By: #### C MP ####[facility] Zdugjoqzni0229 [place] [address]Dr. Arnoldo Taylor Urea nitrogen/Creatinine [Mass ratio] 12.5 mg/mg Normal [facility] Comment on above: Performed By: #### C MP ####[facility] Iayanqzosd1521 [place] [address]Dr. Arnoldo Brandon CT CHEST WO CONon 01-27-2022 CT CHEST WO CON Normal [facility] ECHOCARDIO M/2D COMPLETEon 0 01-27-2022 ECHOCARDIO M/2D COMPLETE Normal [facility] POINT OF CARE GLUCOSEon 09-2 Glucose [Mass/Vol] 142 mg/dL Critically high 74-106 [facility] Comment on above: Performed By: #### P OCGLUC ####[facility] Aleeayyqvd5058 [place] [address]Dr. Arnoldo Taylor Glucose [Mass/Vol] 121 mg/dL Critically high 74-106 [facility] Comment on above: Performed By: #### P OCGLUC ####[facility] Rxvueeikcr9254 [place] [address]Dr. Arnoldo Taylor RESPIRATORY PANEL PLUSon Adenovirus Not detected Normal NOT DETECTED [facility] Comment on above: Performed By: #### R SPLUS ####[facility] Prlpcpdlih78[address] [place], [place] [address]Dr. Arnoldo Taylor B. Parapertusis Not detected Normal NOT DETECTED [facility] Comment on above: Performed By: #### R SPLUS ####[facility] Xwpizlziwo448[address] [place], [place] [address]Dr. Arnoldo Taylor B. Pertussis Not detected Normal NOT DETECTED [facility] Comment on above: Performed By: #### R SPLUS ####[facility] Nzwmkkgnil6763[address] [place], [place] [address]Dr. Arnoldo Taylor Chlamydia Pneumoniae Not detected Normal NOT DETECTED [facility] Comment on above: Performed By: #### R SPLUS ####[facility] Ztpwlvfsvl5349[address] [place], [place] [address]Dr. Arnoldo Taylor Coronavirus 229E Not detected Normal NOT DETECTED [facility] Comment on above: Performed By: #### R SPLUS ####[facility] Vgftkbuiax65[address] [place], [place] [address]Dr. Arnoldo Taylor Coronavirus HKU1 Not detected Normal NOT DETECTED [facility] Comment on above: Performed By: #### R SPLUS ####[facility] Yjqmubmwvo5917[address] [place], [place] [address]Dr. Arnoldo Taylor Coronavirus NL63 Not detected Normal NOT DETECTED [facility] Comment on above: Performed By: #### R SPLUS ####[facility] Alxbuoyrbn9576 [place] [address]Dr. Arnoldo Taylor Coronavirus OC43 Not detected Normal NOT DETECTED [facility] Comment on above: Performed By: #### R SPLUS ####[facility] Wknnkprnxn8707 [place] [address]Dr. Arnoldo Taylor Influenza A H1 2009 Not detected Normal NOT DETECTED [facility] Comment on above: Performed By: #### R SPLUS ####[facility] Lnlowwwndl4144[address] [place], [place] [address]Dr. Arnoldo Taylor Influenza A H3 Not detected Normal NOT DETECTED [facility] Comment on above: Performed By: #### R SPLUS ####[facility] Dgjxdipyth7[address] [place], [place] [address]Dr. Arnoldo Taylor Influenza B Not detected Normal NOT DETECTED [facility] Comment on above: Performed By: #### R SPLUS ####[facility] Idmtgifove2769[address] [place], [place] [address]Dr. Arnoldo Taylor Metapneumovirus Not detected Normal NOT DETECTED [facility] Comment on above: Performed By: #### R SPLUS ####[facility] Qbmedviieu1331[address] [place], [place] [address]Dr. Arnoldo Taylor Mycoplas. Pneumoniae Not detected Normal NOT DETECTED [facility] Comment on above: Performed By: #### R SPLUS ####[facility] Yzrswwvxmg988[address] [place], [place] [address]Dr. Arnoldo Taylor Parainfluenza 1 Not detected Normal NOT DETECTED [facility] Comment on above: Performed By: #### R SPLUS ####[facility] Jippcviwvl[address] [place], [place] [address]Dr. Yisujata Taylor Parainfluenza 2 Not detected Normal NOT DETECTED [facility] Comment on above: Performed By: #### R SPLUS ####[facility] Umerknbczc1944[address] [place], [place] [address]Dr. Arnoldo Taylor Parainfluenza 3 Not detected Normal NOT DETECTED [facility] Comment on above: Performed By: #### R SPLUS ####[facility] Yotpvhgjzf5448 [place] [address]Dr. Arnoldo Taylor Parainfluenza 4 Not detected Normal NOT DETECTED [facility] Comment on above: Performed By: #### R SPLUS ####[facility] Yrujvscixw2470 [place] [address]Dr. Arnoldo Taylor Rhino/Enterovirus Not detected Normal NOT DETECTED [facility] Comment on above: Performed By: #### R SPLUS ####[facility] Vaqqambezu8179[address] [place], [place] [address]Dr. Arnoldo Taylor RP2 Header 1 RESPIRATORY PANEL: VIRUSES Normal [facility] Comment on above: Performed By: #### R SPLUS ####[facility] Jpnczuzklb0[address] [place], [place] [address]Dr. Arnoldo Taylor RP2 Header 2 RESPIRATORY PANEL: BACTERIA Normal [facility] Comment on above: Performed By: #### R SPLUS ####[facility] Aqizdujmxe[address] [place], [place] [address]Dr. Arnoldo Taylor RSV Not detected Normal NOT DETECTED [facility] Comment on above: Performed By: #### R SPLUS ####[facility] Frsfkblkzh7645[address] [place], [place] [address]Dr. Arnoldo Taylor SARS-CoV-2 (COVID-19) RNA JAMMIE+probe Ql (Unsp spec) Not detected Normal NOT DETECTED [facility] Comment on above: Performed By: #### R SPLUS ####[facility] Qrudsqerjb60[address] [place], [place] [address]Dr. Arnoldo Taylor TROPONIN, HIGH SENSITIVITYon 01-27-2022 HSTROP 149.8 pg/mL Critically high 4.0-51.3 [facility] Comment on above: Result Comment: CUT- OFF POINTS HAVE BEEN ESTABLISHED BASED ON THE FOURTH UNIVERSAL DEFINITIONS OF MYOCARDIALINFARCTION. THE UPPER REFERENCE LIMIT (URL) OF TROPONIN, DEFINED THE 99TH PERCENTILE OFcTnI DISTRIBUTION IN A REFERENCE POPULATION, HAS BEEN CONFIRMED THE DECISION THRESHOLDFOR GA DIAGNOSIS. Performed By: #### H STROPN ####[facility] Swndikxacz52[address] [place] [address]Dr. Arnoldo Taylor ACETONE SERUMon 01-26-2022 ACETONE Negative Normal NEGATIVE [facility] Comment on above: Performed By: #### A CETON ####[facility] Nsdwnyxced[address] [place], [place] [address]Dr. Arnoldo Taylor AMMONIAon 01-26-2022 Ammonia (P) [Mass/Vol] ug/dL Critically low 11-32 The [facility] Comment on above: Performed By: #### A MM ####[facility] [address]dauls[address] [place], [place] [address]Dr. Arnoldo Taylor CBC AUTO DIFFon 01-26-2022 BASO # 0.0 103/ul Normal 0.0-0.1 [facility] Comment on above: Performed By: #### C BC ####[facility] Vnviarmper[address] [place], [place] [address]Dr. Aronldo Taylor Basophils/100 WBC (Bld) 0.1 % Critically low 0.2-2.0 [facility] Comment on above: Performed By: #### C BC ####[facility] Hapopcxwam[address] [place], [place] [address]Dr. Arnoldo Taylor EO # 0.2 103/ul Normal 0.0-0.7 [facility] Comment on above: Performed By: #### C BC ####[facility] Ztjzcooqic[address] [place], [place] [address]Dr. Arnoldo Taylor Eosinophils/100 WBC (Bld) 2.6 % Normal 0.9-7.0 [facility] Comment on above: Performed By: #### C BC ####[facility] Evkesfzpnw2[address] [place], [place] [address]Dr. Arnoldo Taylor Erythrocyte distribution width (RBC) [Ratio] 13.4 % Normal 11.0-15.0 [facility] Comment on above: Performed By: #### C BC ####[facility] Ovfbgkhjzp[address] [place], [place] [address]Dr. Arnoldo Taylor Hematocrit (Bld) [Volume fraction] 35.3 % Critically low 36.0-48.0 [facility] Comment on above: Performed By: #### C BC ####[facility] Cjibagomdw44[address] [place] [id number]. Arnoldo Taylor Hemoglobin (Bld) [Mass/Vol] 11.5 g/dL Critically low 12.0-16.0 [facility] Comment on above: Performed By: #### C BC ####[facility] Ufvumizhvi7[address] [place] [id number]. Arnoldo Taylor IG # 0.04 10e3/ul Critically high 0.00-0.03 [facility] Comment on above: Performed By: #### C BC ####[facility] Nivwwuxdmb[address] [place] [address]Dr. Arnoldo Taylor IG % 0.5 % Normal 0.0-0.5 [facility] Comment on above: Performed By: #### C BC ####[facility] Lsjtcqrupv[address] [place], [place] [address]Dr. Arnoldo Taylor LYMPH # 2.8 103/ul Normal 1.2-3.8 [facility] Comment on above: Performed By: #### C BC ####[facility] Shqxzczqqn8602 [place] [address]Dr. Arnoldo Taylor Lymphocytes/100 WBC (Bld) 31.3 % Normal 20.5-60.0 [facility] Comment on above: Performed By: #### C BC ####[facility] Evxhddiiho2380 [place] [address]Dr. Arnoldo Taylor MANUAL DIFF REQ NO Normal [facility] Comment on above: Performed By: #### C BC ####[facility] B[address]chfxf[address] [place], [place] [id number]. Arnoldo Taylor MCH (RBC) [Entitic mass] 30.2 pg Normal 26.7-34.0 [facility] Comment on above: Performed By: #### C BC ####[facility] Wppcgofomn[address] [place], [place] [id number]. Arnoldo Taylor MCHC (RBC) [Mass/Vol] 32.6 g/dL Normal 29.9-35.2 [facility] Comment on above: Performed By: #### C BC ####[facility] Urmfcajhud1230 [place] [id number]. Arnoldo Taylor MCV (RBC) [Entitic vol] 92.7 fL Normal 81.0-99.0 [facility] Comment on above: Performed By: #### C BC ####[facility] Shinamekwl9201 [place] [address]Dr. Arnoldo Taylor MONO # 0.9 103/ul Critically high 0.3-0.8 [facility] Comment on above: Performed By: #### C BC ####[facility] Iyffhqzonw4904 [place] [address]Dr. Arnoldo Taylor Monocytes/100 WBC (Bld) 9.8 % Normal 1.7-12.0 [facility] Comment on above: Performed By: #### C BC ####[facility] Ekrxgzdddn26[address] [place], [place] [address]Dr. Arnoldo Taylor NEUT # 4.9 103/ul Normal 1.4-6.5 [facility] Comment on above: Performed By: #### C BC ####[facility] Otjxteubyw93[address] [place], [place] [id number]. Arnoldo Talyor Neutrophils/100 WBC (Bld) 55.7 % Normal 43.0-75.0 [facility] Comment on above: Performed By: #### C BC ####[facility] Qtnbtnplxr[address] [place], [place] [id number]. Arnoldo Taylor Platelet mean volume (Bld) [Entitic vol] 9.5 fL Normal 9.5-13.5 [facility] Comment on above: Performed By: #### C BC ####[facility] Jpjovbvetu9316 [place] [address]Dr. Arnoldo Taylor PLT 124 103/ul Critically low 150-450 [facility] Comment on above: Performed By: #### C BC ####[facility] Xiilmdttar8191 [place] [address]Dr. Arnoldo Taylor RBC 3.81 106/ul Critically low 4.20-5.40 [facility] Comment on above: Performed By: #### C BC ####[facility] Cypnudbfqr33[address] [place], [place] [address]Jb. Arnoldo Taylor WBC 8.9 103/ul Normal 4.0-11.0 [facility] Comment on above: Performed By: #### C BC ####[facility] Rekpyajixs4[address] [place], [place] [address]Dv. Arnolod Taylor CT STROKE HEAD WOon 01-27-20 CT STROKE HEAD WO Normal [facility] CULTURE BLOODon 01-26-2022 Microscopic examination of blood, culture Culture Observations: NO GROWTH AT 5 DAYS. Normal [facility] Comment on above: Performed By: #### B LDCX2 ####[facility] Iqvxoudyjo3009 [place] [id number]. Arnoldo Taylor Microscopic examination of blood, culture Culture Observations: NO GROWTH AT 5 DAYS. Normal [facility] Comment on above: Performed By: #### B LDCX1 ####[facility] Lvwhadgchk3975 [place], [place] [address]Kk. Arnoldo Taylor Covid-19 PCR (CVDTBH)on 01-01 SARS-CoV-2 (COVID-19) RNA JAMMIE+probe Ql (Unsp spec) Not detected Normal NOT DETECTED [facility] Comment on above: Result Comment: When [...] for this test is supported by the Senior Benefits Specialist of Health and Human Service's declaration that [...] be used). Performed By: #### C VDTBH ####[facility] Peivtesoyw3985 [place] [address]Dr. Arnoldo Taylor ER URINE PROFILEon 2 Bilirubin Ql (U) Negative Normal NEGATIVE [facility] Comment on above: Performed By: #### U MICRO, ERUR ####[facility] Oamsunkhpg4[address] [place], [place] [address]Dr. Arnoldo Taylor Clarity (U) SL CLOUDY Abnormal CLEAR [facility] Comment on above: Performed By: #### U MICRO, ERUR ####[facility] Glelykuywc[address] [place], [place] [address]Dr. Arnoldo Taylor Color (U) LT. YELLOW Normal YELLOW [facility] Comment on above: Performed By: #### U MICRO, ERUR ####[facility] Qzueizzoii1[address] [place], [place] [address]Dr. Arnoldo Taylor ERUAHD A micrscopic examination will be performed if indicated. Normal [facility] Comment on above: Performed By: #### U MICRO, ERUR ####[facility] Awrvqbnukp05[address] [place], [place] [address]Dr. Arnoldo Taylor Glucose Ql (U) Negative Normal NEGATIVE [facility] Comment on above: Performed By: #### U MICRO, ERUR ####[facility] Yzvkqfokoo87[address] [place], [place] [address]Dr. Arnoldo Taylor Hemoglobin Ql (U) TRACE-LYSED Abnormal NEGATIVE [facility] Comment on above: Performed By: #### U MICRO, ERUR ####[facility] Zaxllaqpit[address] [place], [place] [address]Dr. Arnoldo Taylor Ketones Ql (U) Negative Normal NEGATIVE [facility] Comment on above: Performed By: #### U MICRO, ERUR ####[facility] Oihlwxpcnh26[address] [place], [place] [address]Dr. Arnoldo Taylor LEUKOCYTES Negative Normal NEGATIVE [facility] Comment on above: Performed By: #### U MICRO, ERUR ####[facility] Gcvxutcnsq4349[address] [place], [place] [address]Dr. Lynettelan Taylor Nitrite Ql (U) Negative Normal NEGATIVE [facility] Comment on above: Performed By: #### U MICRO, ERUR ####[facility] Dagopvubev[address] [place] [address]Dr. Arnoldo Taylor pH (U) 6.0 [pH] Normal 5-9 [facility] Comment on above: Performed By: #### U MICRO, ERUR ####[facility] Zujroxxcnl1350 [place] [address]Dr. Arnoldo Taylor SPEC GRAVITY 1.010 Normal 1.005-<=1.025 [facility] Comment on above: Performed By: #### U MICRO, ERUR ####[facility] Wzxazdtgsu[address] [place], [place] [address]Dr. Arnoldo Taylor UA PROTEIN Negative Normal NEGATIVE/ TRACE [facility] Comment on above: Performed By: #### U MICRO, ERUR ####[facility] Ctqigefmsr[address] [place], [place] [address]Dr. Arnoldo Taylor UR MICRO IND INDICATED Normal [facility] Comment on above: Performed By: #### U MICRO, ERUR ####[facility] Hezhpxiall[address] [place], [place] [address]Dr. Arnoldo Brandon Urobilinogen Qn (U) 0.2 {Adrienne'U}/dL Normal 0.2 - 1. 0 [facility] Comment on above: Performed By: #### U MICRO, ERUR ####[facility] Oxjbzgukja[address] [place], [place] [address]Dr. Arnoldo Brandon LACTATE/LACTIC ACIDon 2021 Lactate [Moles/Vol] 1.4 mmol/L Normal 0.4-1.9 [facility] Comment on above: Performed By: #### L ACT ####[facility] Pfbxqndxuf9255[address] [place], [place] [address]Dr. Arnoldo Taylor Lactate [Moles/Vol] 3.6 mmol/L Critically high 0.4-1.9 [facility] Comment on above: Performed By: #### L ACT ####[facility] Ueyjkjwlls[address] [place], [place] [address]Dr. Lynettesujata Taylor PH VENOUS BLOODon 01-26-2022 PCO2 VENOUS 30.5 mmHg Critically low 40.0-52.0 [facility] Comment on above: Performed By: #### P HVEN ####[facility] Tsntvihios1832 [place] [address]Dr. Arnoldo Taylor pH VENOUS 7.542 Critically high 7.330-7.430 [facility] Comment on above: Performed By: #### P HVEN ####[facility] Mmhsxgwhvc9703 [place] [address]Dr. Arnoldo Taylor PROF 14(COMP METB)on 022 Albumin [Mass/Vol] 2.9 g/dL Critically low 3.4-5.0 [facility] Comment on above: Performed By: #### C MP, TSH, HSTROPN ####[facility] Npymztktrp[address] [place], [place] [address]Dr. Arnoldo Taylor Albumin/Globulin [Mass ratio] 0.7 {ratio} Normal [facility] Comment on above: Performed By: #### C MP, TSH, HSTROPN ####[facility] Qbsbkfwdff[address] [place], [place] [address]Dr. Arnoldo Taylor ALP [Catalytic activity/Vol] 92 U/L Normal 46-116 [facility] Comment on above: Performed By: #### C MP, TSH, HSTROPN ####[facility] Hflzestlxi4524 [place] [address]Dr. Arnoldo Taylor ALT [Catalytic activity/Vol] 15 U/L Normal 14-59 [facility] Comment on above: Performed By: #### C MP, TSH, HSTROPN ####[facility] Cqnuzjrnmz1673 [place] [address]Dr. Arnoldo Taylor Anion gap [Moles/Vol] 14.2 mmol/L Normal [facility] Comment on above: Performed By: #### C MP, TSH, HSTROPN ####[facility] Bxpruzphmi7435 [place] [address]Dr. Arnoldo Taylor AST [Catalytic activity/Vol] 17 U/L Normal 15-37 [facility] Comment on above: Performed By: #### C MP, TSH, HSTROPN ####[facility] Idxibvjkqu7334 [place] [address]Dr. Arnoldo Taylor Bilirubin [Mass/Vol] 0.3 mg/dL Normal 0.2-1.0 [facility] Comment on above: Performed By: #### C MP, TSH, HSTROPN ####[facility] Xhhgbrlowd[address] [place], [place] [address]Dr. Arnoldo Taylor Calcium [Mass/Vol] 9.2 mg/dL Normal 8.5-10.1 [facility] Comment on above: Performed By: #### C MP, TSH, HSTROPN ####[facility] Amyqyevnfk[address] [place], [place] [address]Dr. Arnoldo Taylor Chloride [Moles/Vol] 105 mmol/L Normal 98-107 [facility] Comment on above: Performed By: #### C MP, TSH, HSTROPN ####[facility] Gkdyeephri[address] [place], [place] [address]Dr. Arnoldo Taylor CO2 [Moles/Vol] 25.3 mmol/L Normal 21.0-32.0 [facility] Comment on above: Performed By: #### C MP, TSH, HSTROPN ####[facility] Hiibexaton8[address] [place], [place] [address]Dr. Arnoldo Taylor Creatinine [Mass/Vol] 1.38 mg/dL Critically high 0.55-1.02 [facility] Comment on above: Performed By: #### C MP, TSH, HSTROPN ####[facility] Cqsztqwndz[address] [place], [place] [address]Dr. Arnoldo Taylor EGFR-AF LIBYAN 45 mL/min/1.73m2 Critically low >=60 [facility] Comment on above: Performed By: #### C MP, TSH, HSTROPN ####[facility] Dyhtiuqrid[address] [place], [place] [address]Dr. Arnoldo Taylor EGFR-NON AF LIBYAN 37 mL/min/1.73m2 Critically low >=60 [facility] Comment on above: Performed By: #### C MP, TSH, HSTROPN ####[facility] Ilifztiukr2872 [place] [address]Dr. Arnoldo Taylor Globulin (S) [Mass/Vol] 4.3 g/dL Normal [facility] Comment on above: Performed By: #### C MP, TSH, HSTROPN ####[facility] Rnlholnbjc7438 [place] [address]Dr. Arnoldo Taylor Glucose [Mass/Vol] 90 mg/dL Normal 74-106 [facility] Comment on above: Performed By: #### C MP, TSH, HSTROPN ####[facility] Uvlrsbftca9942 [place] [address]Dr. Arnoldo Taylor Potassium [Moles/Vol] 3.5 mmol/L Normal 3.5-5.1 [facility] Comment on above: Performed By: #### C MP, TSH, HSTROPN ####[facility] Liboelfwoa[address] [place], [place] [address]Dr. Arnoldo Taylor Protein [Mass/Vol] 7.2 g/dL Normal 6.4-8.2 [facility] Comment on above: Performed By: #### C MP, TSH, HSTROPN ####[facility] Comngddcwd54[address] [place], [place] [address]Dr. Arnoldo Taylor Sodium [Moles/Vol] 141 mmol/L Normal 136-145 [facility] Comment on above: Performed By: #### C MP, TSH, HSTROPN ####[facility] Qswbiilott98[address] [place], [place] [address]Dr. Arnoldo Taylor Urea nitrogen [Mass/Vol] 29.0 mg/dL Critically high 7.0-18.0 [facility] Comment on above: Performed By: #### C MP, TSH, HSTROPN ####[facility] Appwruuaud72[address] [place], [place] [address]Dr. Arnoldo Taylor Urea nitrogen/Creatinine [Mass ratio] 21.0 mg/mg Normal [facility] Comment on above: Performed By: #### C MP, TSH, HSTROPN ####[facility] Zixiwefgny37[address] [place] [address]Dr. Arnoldo Taylor PROTIMEon 01-26-2022 INR Coag (PPP) [Relative time] 1.06 {INR} Normal [facility] Comment on above: Performed By: #### P T, PTT ####[facility] Osppavpcgm[address] [place], [place] [address]Dr. Arnoldo Taylor INR GUIDELINES SEE BELOW Normal [facility] Comment on above: Result Comment: CASSIDY RED INR: 2.0 - 3.0 CONDITIONS NOT LISTED BELOW 2.5 - 3.5 FOR PROSTHETIC HEART VALVE REPLACEMENT 2.5 - 3.5 RECURRENT THROMBOSIS Performed By: #### P T, PTT ####[facility] Trijlaealz[address] [place], [place] [address]Dr. Arnoldo Taylor PT Coag (PPP) [Time] 11.4 s Normal 9.0-11.6 [facility] Comment on above: Performed By: #### P T, PTT ####[facility] Yqdzydysrt[address] [place], [place] [address]Dr. Arnoldo Taylor PTTon 01-26-2022 aPTT Coag (Bld) [Time] 29.1 s Normal 22.3-36.2 [facility] Comment on above: Performed By: #### P T, PTT ####[facility] Ylyzngvosl[address] [place], [place] [address]Dr. Arnoldo Taylor TROPONIN, HIGH SENSITIVITYon 01-26-2022 HSTROP 157.4 pg/mL Critically high 4.0-51.3 [facility] Comment on above: Result Comment: CUT- OFF POINTS HAVE BEEN ESTABLISHED BASED ON THE FOURTH UNIVERSAL DEFINITIONS OF MYOCARDIALINFARCTION. THE UPPER REFERENCE LIMIT (URL) OF TROPONIN, DEFINED THE 99TH PERCENTILE OFcTnI DISTRIBUTION IN A REFERENCE POPULATION, HAS BEEN CONFIRMED THE DECISION THRESHOLDFOR GA DIAGNOSIS. Performed By: #### H STROPN ####[facility] Exlwrayzmb[address] [place], [place] [address]Dr. Arnoldo Taylor HSTROP 182.2 pg/mL Critically high 4.0-51.3 [facility] Comment on above: Result Comment: CUT- OFF POINTS HAVE BEEN ESTABLISHED BASED ON THE FOURTH UNIVERSAL DEFINITIONS OF MYOCARDIALINFARCTION. THE UPPER REFERENCE LIMIT (URL) OF TROPONIN, DEFINED THE 99TH PERCENTILE OFcTnI DISTRIBUTION IN A REFERENCE POPULATION, HAS BEEN CONFIRMED THE DECISION THRESHOLDFOR GA DIAGNOSIS. Performed By: #### C MP, TSH, HSTROPN ####[facility] Wyuebxyjvb7938 [place] [address]Dr. Arnoldo Taylor TSHon 01-26-2022 TSH 4.233 uIU/mL Critically high 0.358-3.740 [facility] Comment on above: Performed By: #### C MP, TSH, HSTROPN ####[facility] Ztrphfufun5300 [place] [address]Dr. Arnoldo Taylor URINE MICROSCOPIC ONLYon BACTERIA NONE SEEN Normal NONE SEEN [facility] Comment on above: Performed By: #### U MICRO, ERUR ####[facility] Gtivblmsgb0228 [place] [address]Dr. Arnoldo Taylor Bacteria identified Cx Nom (U) NOT INDICATED Normal [facility] Comment on above: Performed By: #### U MICRO, ERUR ####[facility] Buxllvjxma7084 [place] [address]Dr. Arnoldo Taylor CAST NONE SEEN Normal NONE SEEN [facility] Comment on above: Performed By: #### U MICRO, ERUR ####[facility] Sdrzmlukfy[address] [place] [address]Dr. Arnoldo Taylor Crystals LM Nom (Urine sed) NONE SEEN Normal NONE SEEN [facility] Comment on above: Performed By: #### U MICRO, ERUR ####[facility] Uwzxnidzrq[address] [place], [place] [address]Dr. Arnoldo Taylor Epithelial cells LM Ql (Urine sed) RARE Normal NONE SEEN /RARE [facility] Comment on above: Performed By: #### U MICRO, ERUR ####[facility] Qqpslyvloo80[address] [place], [place] [address]Dr. Arnoldo Taylor MUCOUS NONE SEEN Normal NONE SEEN [facility] Comment on above: Performed By: #### U MICRO, ERUR ####[facility] Pxzrlntjtz4[address] [place], [place] [address]Dr. Arnoldo Brandon RBC 2-5 Abnormal 0-2 [facility] Comment on above: Performed By: #### U MICRO, ERUR ####[facility] Navozttoyu7644 [place] [id number]. Arnoldo Brandon WBC NONE SEEN Normal NONE SEEN [facility] Comment on above: Performed By: #### U MICRO, ERUR ####[facility] Ffkfqtptvj1089 [place] [id number]. Arnoldo Brandon XR CHEST 1 Von 01-26-2022 XR CHEST 1 V Normal [facility] Office Visiton 01-25-2022 Follow-up visit [id number] Fausto Yanes 1940 F Date Provider Department Center 01/25/2022 [facility] Family History Family history unknown: Yes Level of Service:53957 [place] POSTOP FOLLOW UP VISIT RELATED TO ORIGINAL PX Reason for Visit and Comments: Follow-up [512473] Normal [facility] CBC AUTO DIFFon 01-14-2022 BASO # 0.0 103/ul Normal 0.0-0.1 [facility] Comment on above: Performed By: #### C BC ####[facility] Jejlwudleq3994 [place] [address]Dr. Arnoldo Brandon Basophils/100 WBC (Bld) 0.2 % Normal 0.2-2.0 [facility] Comment on above: Performed By: #### C BC ####[facility] Itohifllgf0735 [place] [address]Dr. Lynettesujata Brandon EO # 0.4 103/ul Normal 0.0-0.7 [facility] Comment on above: Performed By: #### C BC ####[facility] Vqpkpbayay6743 [place] [id number]. Lynettesujata Taylor Eosinophils/100 WBC (Bld) 5.6 % Normal 0.9-7.0 [facility] Comment on above: Performed By: #### C BC ####[facility] Gigcvdywbm5991 [place] [id number]. Lynettesujata Taylor Erythrocyte distribution width (RBC) [Ratio] 14.1 % Normal 11.0-15.0 [facility] Comment on above: Performed By: #### C BC ####[facility] Xgwghxjywc6102 [place] [address]DrTye Taylor Hematocrit (Bld) [Volume fraction] 30.3 % Critically low 36.0-48.0 [facility] Comment on above: Performed By: #### C BC ####[facility] Xbxjgiyvua3328 [place] [address]DrTye Taylor Hemoglobin (Bld) [Mass/Vol] 9.8 g/dL Critically low 12.0-16.0 [facility] Comment on above: Performed By: #### C BC ####[facility] Onzuemdtpb[address] [place], [place] [address]DrTye Taylor IG # 0.02 10e3/ul Normal 0.00-0.03 [facility] Comment on above: Performed By: #### C BC ####[facility] Cqgbdlnsae11[address] [place], [place] [address]DrTye Taylor IG % 0.3 % Normal 0.0-0.5 [facility] Comment on above: Performed By: #### C BC ####[facility] Wcmnylchlk4[address] [place], [place] [address]DrTye Taylor LYMPH # 3.3 103/ul Normal 1.2-3.8 [facility] Comment on above: Performed By: #### C BC ####[facility] Txxaudexwr55[address] [place], [place] [address]DrTye Taylor Lymphocytes/100 WBC (Bld) 52.0 % Normal 20.5-60.0 [facility] Comment on above: Performed By: #### C BC ####[facility] Bdjfnygzgi9[address] [place], [place] [address]DrTye Taylor MANUAL DIFF REQ NO Normal [facility] Comment on above: Performed By: #### C BC ####[facility] Eszsdxaakx8444[address] [place], [place] [address]DrTye Taylor MCH (RBC) [Entitic mass] 30.4 pg Normal 26.7-34.0 [facility] Comment on above: Performed By: #### C BC ####[facility] Hiboqibmwp5910 [place] [address]Dr. Arnoldo Taylor MCHC (RBC) [Mass/Vol] 32.3 g/dL Normal 29.9-35.2 [facility] Comment on above: Performed By: #### C BC ####[facility] Krhbehxhii8528 [place] [address]DrTye Taylor MCV (RBC) [Entitic vol] 94.1 fL Normal 81.0-99.0 [facility] Comment on above: Performed By: #### C BC ####[facility] Rcwkwysrnm[address] [place], [place] [address]DrTye Taylor MONO # 0.6 103/ul Normal 0.3-0.8 [facility] Comment on above: Performed By: #### C BC ####[facility] Hwlksbzjix99[address] [place], [place] [address]Dr. Arnoldo Taylor Monocytes/100 WBC (Bld) 10.0 % Normal 1.7-12.0 [facility] Comment on above: Performed By: #### C BC ####[facility] Kveukdizsx6526[address] [place], [place] [address]DrTye Taylor NEUT # 2.0 103/ul Normal 1.4-6.5 [facility] Comment on above: Performed By: #### C BC ####[facility] Atdmovjuwi227[address] [place], [place] [address]Dr. Arnoldo Taylor Neutrophils/100 WBC (Bld) 31.9 % Critically low 43.0-75.0 [facility] Comment on above: Performed By: #### C BC ####[facility] Thahiywxnz358[address] [place], [place] [address]DrTye Taylor Platelet mean volume (Bld) [Entitic vol] 9.6 fL Normal 9.5-13.5 [facility] Comment on above: Performed By: #### C BC ####[facility] Hruvwydiqp17[address] [place], [place] [address]Dr. Arnoldo Taylor PLT 116 103/ul Critically low 150-450 [facility] Comment on above: Performed By: #### C BC ####[facility] Hcuyluneqm8918 [place] [id number]. Lynettesujata Brandon RBC 3.22 106/ul Critically low 4.20-5.40 [facility] Comment on above: Performed By: #### C BC ####[facility] Ckesrumaiz8368 [place] [address]Dr. Arnoldo Taylor WBC 6.3 103/ul Normal 4.0-11.0 [facility] Comment on above: Performed By: #### C BC ####[facility] Tdwrthkmwi0762 [place] [address]DrTye Taylor PROF 14(COMP METB)on 022 Albumin [Mass/Vol] 2.4 g/dL Critically low 3.4-5.0 [facility] Comment on above: Performed By: #### C MP ####[facility] Ozmgvdeeaw4[address] [place], [place] [address]Dr. Arnoldo Taylor Albumin/Globulin [Mass ratio] 0.7 {ratio} Normal [facility] Comment on above: Performed By: #### C MP ####[facility] Ubdsruecul[address] [place], [place] [address]Dr. Arnoldo Taylor ALP [Catalytic activity/Vol] 92 U/L Normal 46-116 [facility] Comment on above: Performed By: #### C MP ####[facility] Uqfufzkzdg0297 [place] [address]Dr. Arnoldo Taylor ALT [Catalytic activity/Vol] 28 U/L Normal 14-59 [facility] Comment on above: Performed By: #### C MP ####[facility] Dddhduczxq5302 [place] [address]Dr. Arnoldo Taylor Anion gap [Moles/Vol] 9.6 mmol/L Normal [facility] Comment on above: Performed By: #### C MP ####[facility] [address]nmpzkzk[address] [place] [address]Dr. Arnoldo Taylor AST [Catalytic activity/Vol] 25 U/L Normal 15-37 [facility] Comment on above: Performed By: #### C MP ####[facility] [address] [place] [address]Dr. Arnoldo Brandon Bilirubin [Mass/Vol] 0.2 mg/dL Normal 0.2-1.0 [facility] Comment on above: Performed By: #### C MP ####[facility] Prwlizyihl[address] [place], [place] [address]Dr. Arnoldo Brandon Calcium [Mass/Vol] 8.3 mg/dL Critically low 8.5-10.1 [facility] Comment on above: Performed By: #### C MP ####[facility] Qmxovyhiuy38[address] [place], [place] [address]Dr. Arnoldo Brandon Chloride [Moles/Vol] 103 mmol/L Normal 98-107 [facility] Comment on above: Performed By: #### C MP ####[facility] Lhvwrcbtqp5[address] [place], [place] [address]Dr. Arnoldo Brandon CO2 [Moles/Vol] 25.5 mmol/L Normal 21.0-32.0 [facility] Comment on above: Performed By: #### C MP ####[facility] Ezqaysplnp6669[address] [place], [place] [address]Dr. Arnoldo Brandon Creatinine [Mass/Vol] 1.17 mg/dL Critically high 0.55-1.02 [facility] Comment on above: Performed By: #### C MP ####[facility] Gpqqbychii9056[address] [place], [place] [address]Dr. Arnoldo Brandon EGFR-AF LIBYAN 54 mL/min/1.73m2 Critically low >=60 [facility] Comment on above: Performed By: #### C MP ####[facility] Pglcgqjfsk[address] [place], [place] [address]Dr. Arnoldo Taylor EGFR-NON AF LIBYAN 45 mL/min/1.73m2 Critically low >=60 [facility] Comment on above: Performed By: #### C MP ####[facility] Tzvcmyuwze177[address] [place], [place] [address]Dr. Arnoldo Taylor Globulin (S) [Mass/Vol] 3.4 g/dL Normal [facility] Comment on above: Performed By: #### C MP ####[facility] Ldlhifluxo057[address] [place], [place] [address]Dr. Arnoldo Taylor Glucose [Mass/Vol] 110 mg/dL Critically high 74-106 [facility] Comment on above: Performed By: #### C MP ####[facility] Kvnddobgni3689[address] [place], [place] [address]Dr. Arnoldo Taylor Potassium [Moles/Vol] 4.1 mmol/L Normal 3.5-5.1 [facility] Comment on above: Performed By: #### C MP ####[facility] Jecxwteasu2416[address] [place], [place] [address]Dr. Arnoldo Taylor Protein [Mass/Vol] 5.8 g/dL Critically low 6.4-8.2 [facility] Comment on above: Performed By: #### C MP ####[facility] Zljfgaszuk09[address] [place], [place] [address]Dr. Arnoldo Taylor Sodium [Moles/Vol] 134 mmol/L Critically low 136-145 [facility] Comment on above: Performed By: #### C MP ####[facility] Aqtcsufrkw3154[address] [place], [place] [address]Dr. Arnoldo Taylor Urea nitrogen [Mass/Vol] 15.0 mg/dL Normal 7.0-18.0 [facility] Comment on above: Performed By: #### C MP ####[facility] Hraiswrypd8785[address] [place], [place] [address]Dr. Arnoldo Taylor Urea nitrogen/Creatinine [Mass ratio] 12.8 mg/mg Normal [facility] Comment on above: Performed By: #### C MP ####[facility] Dexuhaieso9993[address] [place], [place] [address]Dr. Arnoldo Taylor CBC AUTO DIFFon 01-13-2022 BASO # 0.0 103/ul Normal 0.0-0.1 [facility] Comment on above: Performed By: #### C BC ####[facility] Guskjoflmi3779[address] [place], [place] [address]Dr. Arnoldo Taylor Basophils/100 WBC (Bld) 0.2 % Normal 0.2-2.0 [facility] Comment on above: Performed By: #### C BC ####[facility] Awimywlsnp7155[address] [place], [place] [address]DrTye Arnoldo Taylor EO # 0.3 103/ul Normal 0.0-0.7 [facility] Comment on above: Performed By: #### C BC ####[facility] Zhpboefnie9185[address] [place], [place] [address]Dr. Arnoldo Taylor Eosinophils/100 WBC (Bld) 6.1 % Normal 0.9-7.0 [facility] Comment on above: Performed By: #### C BC ####[facility] Ybtghuuipa358[address] [place], [place] [address]Dr. Arnoldo Taylor Erythrocyte distribution width (RBC) [Ratio] 14.2 % Normal 11.0-15.0 [facility] Comment on above: Performed By: #### C BC ####[facility] Nqosyvewul8324[address] [place], [place] [address]Dr. Arnoldo Taylor Hematocrit (Bld) [Volume fraction] 32.1 % Critically low 36.0-48.0 [facility] Comment on above: Performed By: #### C BC ####[facility] Dkoreygksl6335[address] [place], [place] [address]Dr. Arnoldo Taylor Hemoglobin (Bld) [Mass/Vol] 10.1 g/dL Critically low 12.0-16.0 [facility] Comment on above: Performed By: #### C BC ####[facility] Kqfvvnlpco1132[address] [place], [place] [address]Dr. Arnoldo Taylor IG # 0.01 10e3/ul Normal 0.00-0.03 [facility] Comment on above: Performed By: #### C BC ####[facility] Hdqfgjhcwk412[address] [place], [place] [address]DrTye Arnoldo Brandon IG % 0.2 % Normal 0.0-0.5 [facility] Comment on above: Performed By: #### C BC ####[facility] Sondakgsvn[address] [place], [place] [address]Dr. Arnoldo Taylor LYMPH # 2.6 103/ul Normal 1.2-3.8 [facility] Comment on above: Performed By: #### C BC ####[facility] [address] [place] [address]Dr. Arnoldo Taylor Lymphocytes/100 WBC (Bld) 46.8 % Normal 20.5-60.0 [facility] Comment on above: Performed By: #### C BC ####[facility] Ul[address]bcpam[address] [place] [address]Dr. Arnoldo Taylor MANUAL DIFF REQ NO Normal [facility] Comment on above: Performed By: #### C BC ####[facility] Xexnvibqrp70[address] [place] [address]Dr. Arnoldo Taylor MCH (RBC) [Entitic mass] 30.5 pg Normal 26.7-34.0 [facility] Comment on above: Performed By: #### C BC ####[facility] Edxqqfrmig4963[address] [place], [place] [address]Dr. Arnoldo Taylor MCHC (RBC) [Mass/Vol] 31.5 g/dL Normal 29.9-35.2 [facility] Comment on above: Performed By: #### C BC ####[facility] Kzuhbqstiw9878[address] [place], [place] [address]Dr. Arnoldo Taylor MCV (RBC) [Entitic vol] 97.0 fL Normal 81.0-99.0 [facility] Comment on above: Performed By: #### C BC ####[facility] Iujyhvovwp943[address] [place], [place] [address]Dr. Arnoldo Taylor MONO # 0.6 103/ul Normal 0.3-0.8 [facility] Comment on above: Performed By: #### C BC ####[facility] Xcsirvntwt5186[address] [place], [place] [address]Dr. Arnoldo Taylor Monocytes/100 WBC (Bld) 10.6 % Normal 1.7-12.0 [facility] Comment on above: Performed By: #### C BC ####[facility] Ibeobxyyca3234[address] [place], [place] [address]Dr. Arnoldo Taylor NEUT # 2.0 103/ul Normal 1.4-6.5 [facility] Comment on above: Performed By: #### C BC ####[facility] [address]udxnsj[address] [place] [address]Dr. Arnoldo Taylor Neutrophils/100 WBC (Bld) 36.1 % Critically low 43.0-75.0 [facility] Comment on above: Performed By: #### C BC ####[facility] Rhucqpsxgz[address] [place] [address]Dr. Arnoldo Brandon Platelet mean volume (Bld) [Entitic vol] 10.3 fL Normal 9.5-13.5 [facility] Comment on above: Performed By: #### C BC ####[facility] Qhslmbzcss519[address] [place], [place] [address]DrTye Ojedasujata Brandon PLT 102 103/ul Critically low 150-450 [facility] Comment on above: Performed By: #### C BC ####[facility] Gcwhkfvixn2268[address] [place], [place] [address]Dr. Lynettesujata Brandon RBC 3.31 106/ul Critically low 4.20-5.40 [facility] Comment on above: Performed By: #### C BC ####[facility] Jopkblrqvs7295[address] [place], [place] [address]DrTye Arnoldo Brandon WBC 5.6 103/ul Normal 4.0-11.0 [facility] Comment on above: Performed By: #### C BC ####[facility] Txhmyrjapw822[address] [place], [place] [address]DrTye Taylor PROF 14(COMP METB)on 022 Albumin [Mass/Vol] 2.5 g/dL Critically low 3.4-5.0 [facility] Comment on above: Performed By: #### C MP ####[facility] Onphlhpufo[address] [place], [place] [address]DrTye Taylor Albumin/Globulin [Mass ratio] 0.7 {ratio} Normal [facility] Comment on above: Performed By: #### C MP ####[facility] Mtykoviivp0[address] [place], [place] [address]Dr. Arnoldo Brandon ALP [Catalytic activity/Vol] 109 U/L Normal 46-116 [facility] Comment on above: Performed By: #### C MP ####[facility] I[address]fcvqpj[address] [place] [address]Dr. Arnoldo Brandon ALT [Catalytic activity/Vol] 33 U/L Normal 14-59 [facility] Comment on above: Performed By: #### C MP ####[facility] Al[address]mzpqm[address] [place] [address]Dr. Arnoldo Brandon Anion gap [Moles/Vol] 10.1 mmol/L Normal [facility] Comment on above: Performed By: #### C MP ####[facility] Jfqgwlfqge3539[address] [place], [place] [address]Dr. Arnoldo Brandon AST [Catalytic activity/Vol] 39 U/L Critically high 15-37 [facility] Comment on above: Performed By: #### C MP ####[facility] Jxvbeabgsz2397[address] [place], [place] [address]Dr. Arnoldo Brandon Bilirubin [Mass/Vol] 0.1 mg/dL Critically low 0.2-1.0 [facility] Comment on above: Performed By: #### C MP ####[facility] Kozruhjumv6[address] [place], [place] [address]Dr. Arnoldo Taylor Calcium [Mass/Vol] 8.4 mg/dL Critically low 8.5-10.1 [facility] Comment on above: Performed By: #### C MP ####[facility] Ukclpgpvjt96[address] [place] [address]Dr. Lynettesujata Taylor Chloride [Moles/Vol] 104 mmol/L Normal 98-107 [facility] Comment on above: Performed By: #### C MP ####[facility] Cdlmyrsgnh032[address] [place], [place] [address]Dr. Arnoldo Taylor CO2 [Moles/Vol] 26.3 mmol/L Normal 21.0-32.0 [facility] Comment on above: Performed By: #### C MP ####[facility] Hxcyosexfr2498[address] [place], [place] [address]Dr. Arnoldo Taylor Creatinine [Mass/Vol] 1.10 mg/dL Critically high 0.55-1.02 [facility] Comment on above: Performed By: #### C MP ####[facility] Ddvlcaunnw[address] [place] [address]Dr. Arnoldo Taylor EGFR-AF LIBYAN 58 mL/min/1.73m2 Critically low >=60 [facility] Comment on above: Performed By: #### C MP ####[facility] Qbkzneuuer[address] [place] [address]Dr. Arnoldo Brandon EGFR-NON AF LIBYAN 48 mL/min/1.73m2 Critically low >=60 [facility] Comment on above: Performed By: #### C MP ####[facility] Mzeppumtwm2426[address] [place], [place] [address]Dr. Arnoldo Taylor Globulin (S) [Mass/Vol] 3.5 g/dL Normal [facility] Comment on above: Performed By: #### C MP ####[facility] Vobdrzalhv8846[address] [place], [place] [address]Dr. Arnoldo Taylor Glucose [Mass/Vol] 103 mg/dL Normal 74-106 [facility] Comment on above: Performed By: #### C MP ####[facility] Pexoqbvfze254[address] [place], [place] [address]Dr. Arnoldo Taylor Potassium [Moles/Vol] 4.4 mmol/L Normal 3.5-5.1 [facility] Comment on above: Performed By: #### C MP ####[facility] Hzbxkgdbyg6[address] [place] [address]Dr. Arnoldo Taylor Protein [Mass/Vol] 6.0 g/dL Critically low 6.4-8.2 [facility] Comment on above: Performed By: #### C MP ####[facility] Lqiahoewdy39[address] [place], [place] [address]Dr. Arnoldo Taylor Sodium [Moles/Vol] 136 mmol/L Normal 136-145 [facility] Comment on above: Performed By: #### C MP ####[facility] Paolbqprjh6906[address] [place], [place] [address]Dr. Arnoldo Taylor Urea nitrogen [Mass/Vol] 15.0 mg/dL Normal 7.0-18.0 [facility] Comment on above: Performed By: #### C MP ####[facility] Bxynwykhhh[address] [place], [place] [address]Dr. Arnoldo Taylor Urea nitrogen/Creatinine [Mass ratio] 13.6 mg/mg Normal [facility] Comment on above: Performed By: #### C MP ####[facility] Eznxuheotg083[address] [place], [place] [address]Dr. Arnoldo Taylor XR CHEST 2 Von 01-13-2022 XR CHEST 2 V Normal [facility] CBC AUTO DIFFon 01-12-2022 BASO # 0.0 103/ul Normal 0.0-0.1 [facility] Comment on above: Performed By: #### C BC ####[facility] Idyduxzlbn3904[address] [place], [place] [address]Dr. Arnoldo Brandon Basophils/100 WBC (Bld) 0.2 % Normal 0.2-2.0 [facility] Comment on above: Performed By: #### C BC ####[facility] Agoixmpvjf1565[address] [place], [place] [address]Dr. Arnoldo Taylor EO # 0.3 103/ul Normal 0.0-0.7 [facility] Comment on above: Performed By: #### C BC ####[facility] Gcvbvgeidf6397[address] [place], [place] [address]Dr. Arnoldo Taylor Eosinophils/100 WBC (Bld) 5.0 % Normal 0.9-7.0 [facility] Comment on above: Performed By: #### C BC ####[facility] Heikmvycaq80[address] [place], [place] [address]Dr. Arnoldo Taylor Erythrocyte distribution width (RBC) [Ratio] 14.2 % Normal 11.0-15.0 [facility] Comment on above: Performed By: #### C BC ####[facility] Lelnxxazlw[address] [place], [place] [address]Dr. Arnoldo Taylor Hematocrit (Bld) [Volume fraction] 29.6 % Critically low 36.0-48.0 [facility] Comment on above: Performed By: #### C BC ####[facility] Rmmfhagpzi6[address] [place] [id number]. Arnoldo Taylor Hemoglobin (Bld) [Mass/Vol] 9.4 g/dL Critically low 12.0-16.0 [facility] Comment on above: Performed By: #### C BC ####[facility] Qnxvofnuls[address] [place] [id number]. Arnoldo Taylor IG # 0.02 10e3/ul Normal 0.00-0.03 [facility] Comment on above: Performed By: #### C BC ####[facility] Culqmuwjmf16[address] [place] [address]Dr. Arnoldo Taylor IG % 0.4 % Normal 0.0-0.5 [facility] Comment on above: Performed By: #### C BC ####[facility] F[address] [place] [address]Dr. Arnoldo Taylor LYMPH # 2.7 103/ul Normal 1.2-3.8 [facility] Comment on above: Performed By: #### C BC ####[facility] Ryjammotfp57[address] [place] [id number]. Arnoldo Taylor Lymphocytes/100 WBC (Bld) 48.9 % Normal 20.5-60.0 [facility] Comment on above: Performed By: #### C BC ####[facility] Wdztxlghtt4[address] [place] [id number]. Arnoldo Taylor MANUAL DIFF REQ NO Normal [facility] Comment on above: Performed By: #### C BC ####[facility] Tnfkdaawpe27[address] [place] [id number]. Arnoldo Taylor MCH (RBC) [Entitic mass] 30.5 pg Normal 26.7-34.0 [facility] Comment on above: Performed By: #### C BC ####[facility] Uptzuewmrx8[address] [place] [id number]. Arnoldo Taylor MCHC (RBC) [Mass/Vol] 31.8 g/dL Normal 29.9-35.2 [facility] Comment on above: Performed By: #### C BC ####[facility] Rehclsqqpl[address] [place] [id number]. Arnoldo Taylor MCV (RBC) [Entitic vol] 96.1 fL Normal 81.0-99.0 [facility] Comment on above: Performed By: #### C BC ####[facility] Wroyqtxajn9[address] [place] [id number]. Arnoldo Taylor MONO # 0.7 103/ul Normal 0.3-0.8 [facility] Comment on above: Performed By: #### C BC ####[facility] Qpygmmtzwd6281 [place] [id number]. Arnoldo Taylor Monocytes/100 WBC (Bld) 13.2 % Critically high 1.7-12.0 [facility] Comment on above: Performed By: #### C BC ####[facility] Pmxyttxwfk[address] [place], [place] [address]Dr. Arnoldo Taylor NEUT # 1.8 103/ul Normal 1.4-6.5 [facility] Comment on above: Performed By: #### C BC ####[facility] Uzsrnpagku[address] [place], [place] [id number]. Arnoldo Taylor Neutrophils/100 WBC (Bld) 32.3 % Critically low 43.0-75.0 [facility] Comment on above: Performed By: #### C BC ####[facility] Eottouxxiw894[address] [place], [place] [address]Dr. Arnoldo Taylor Platelet mean volume (Bld) [Entitic vol] 9.6 fL Normal 9.5-13.5 [facility] Comment on above: Performed By: #### C BC ####[facility] Vknxzwxdmu66[address] [place] [id number]. Arnoldo Taylor PLT 106 103/ul Critically low 150-450 [facility] Comment on above: Performed By: #### C BC ####[facility] Dyqadorjfe3186 [place] [id number]. Arnoldo Taylor RBC 3.08 106/ul Critically low 4.20-5.40 [facility] Comment on above: Performed By: #### C BC ####[facility] Tsgsgteowc26[address] [place] [address]Dr. Arnoldo Taylor WBC 5.4 103/ul Normal 4.0-11.0 [facility] Comment on above: Performed By: #### C BC ####[facility] Qbpgrvvmco7[address] [place] [address]Dr. Arnoldo Taylor PROF 14(COMP METB)on 022 Albumin [Mass/Vol] 2.3 g/dL Critically low 3.4-5.0 [facility] Comment on above: Performed By: #### C MP ####[facility] Rpiukarfen[address] [place] [address]Dr. Arnoldo Taylor Albumin/Globulin [Mass ratio] 0.7 {ratio} Normal [facility] Comment on above: Performed By: #### C MP ####[facility] Vtffqwkjit[address] [place], [place] [address]Dr. Arnoldo Taylor ALP [Catalytic activity/Vol] 105 U/L Normal 46-116 [facility] Comment on above: Performed By: #### C MP ####[facility] Mhehhzshjn5[address] [place] [address]Dr. Arnoldo Taylor ALT [Catalytic activity/Vol] 34 U/L Normal 14-59 [facility] Comment on above: Performed By: #### C MP ####[facility] Ycmgrhvkzl4[address] [place] [address]Dr. Arnoldo Taylor Anion gap [Moles/Vol] 9.7 mmol/L Normal [facility] Comment on above: Performed By: #### C MP ####[facility] Xghtaavxmi30[address] [place] [address]Dr. Arnoldo Taylor AST [Catalytic activity/Vol] 44 U/L Critically high 15-37 [facility] Comment on above: Performed By: #### C MP ####[facility] Guyzmkzgcm8[address] [place] [address]Dr. Arnoldo Taylor Bilirubin [Mass/Vol] 0.2 mg/dL Normal 0.2-1.0 [facility] Comment on above: Performed By: #### C MP ####[facility] Vcvboobbdk8844 [place] [id number]. Arnoldo Taylor Calcium [Mass/Vol] 8.2 mg/dL Critically low 8.5-10.1 [facility] Comment on above: Performed By: #### C MP ####[facility] Vaxhidawux4[address] [place] [address]Dr. Arnoldo Taylor Chloride [Moles/Vol] 107 mmol/L Normal 98-107 [facility] Comment on above: Performed By: #### C MP ####[facility] Wgpahftxhg9946 [place] [address]Dr. Arnoldo Taylor CO2 [Moles/Vol] 25.3 mmol/L Normal 21.0-32.0 [facility] Comment on above: Performed By: #### C MP ####[facility] Bngtvcxlhs28[address] [place] [address]Dr. Arnoldo Taylor Creatinine [Mass/Vol] 1.05 mg/dL Critically high 0.55-1.02 [facility] Comment on above: Performed By: #### C MP ####[facility] Trjfcwxlom5[address] [place] [address]Dr. Arnoldo Taylor EGFR-AF LIBYAN >60 Normal >=60 [facility] Comment on above: Performed By: #### C MP ####[facility] Mugbcaoxbm6254 [place] [id number]. Arnoldo Taylor EGFR-NON AF LIBYAN 51 mL/min/1.73m2 Critically low >=60 [facility] Comment on above: Performed By: #### C MP ####[facility] Dutmhepytl55[address] [place] [id number]. Arnoldo Taylor Globulin (S) [Mass/Vol] 3.4 g/dL Normal [facility] Comment on above: Performed By: #### C MP ####[facility] Awjznfvwdc3109 [place] [id number]. Arnoldo Taylor Glucose [Mass/Vol] 109 mg/dL Critically high 74-106 [facility] Comment on above: Performed By: #### C MP ####[facility] Hzwfwjdqon7755 [place] [address]Dr. Arnoldo Taylor Potassium [Moles/Vol] 4.0 mmol/L Normal 3.5-5.1 [facility] Comment on above: Performed By: #### C MP ####[facility] Mjcstvsftt4520 [place] [id number]. Arnoldo Taylor Protein [Mass/Vol] 5.7 g/dL Critically low 6.4-8.2 [facility] Comment on above: Performed By: #### C MP ####[facility] Jeeonwpqrf3968[address] [place], [place] [address]Dr. Arnoldo Taylor Sodium [Moles/Vol] 138 mmol/L Normal 136-145 [facility] Comment on above: Performed By: #### C MP ####[facility] Ypkihnhwtx3551[address] [place], [place] [address]Dr. Arnoldo Taylor Urea nitrogen [Mass/Vol] 14.0 mg/dL Normal 7.0-18.0 [facility] Comment on above: Performed By: #### C MP ####[facility] Cuclcumtmk9812[address] [place], [place] [address]Dr. Arnoldo Taylor Urea nitrogen/Creatinine [Mass ratio] 13.3 mg/mg Normal [facility] Comment on above: Performed By: #### C MP ####[facility] Rjctvkybzs[address] [place], [place] [address]Dr. Arnoldo Brandon CBC AUTO DIFFon 01-11-2022 BASO # 0.0 103/ul Normal 0.0-0.1 [facility] Comment on above: Performed By: #### C BC ####[facility] Aqwlhvcqhq5058[address] [place], [place] [address]Dr. Arnoldo Brandon Basophils/100 WBC (Bld) 0.2 % Normal 0.2-2.0 [facility] Comment on above: Performed By: #### C BC ####[facility] Ivxijkguuk6368[address] [place], [place] [address]Dr. Arnoldo Taylor EO # 0.2 103/ul Normal 0.0-0.7 [facility] Comment on above: Performed By: #### C BC ####[facility] Efgosguaiu7613 [place] [address]Dr. Arnoldo Taylor Eosinophils/100 WBC (Bld) 3.6 % Normal 0.9-7.0 [facility] Comment on above: Performed By: #### C BC ####[facility] Vtarsbqynx6255[address] [place], [place] [address]Dr. Arnoldo Taylor Erythrocyte distribution width (RBC) [Ratio] 14.0 % Normal 11.0-15.0 [facility] Comment on above: Performed By: #### C BC ####[facility] Czhuriymmk6056[address] [place], [place] [address]Dr. Arnoldo Taylor Hematocrit (Bld) [Volume fraction] 31.9 % Critically low 36.0-48.0 [facility] Comment on above: Performed By: #### C BC ####[facility] Thabflrutg7867[address] [place], [place] [address]Dr. Arnoldo Taylor Hemoglobin (Bld) [Mass/Vol] 10.1 g/dL Critically low 12.0-16.0 [facility] Comment on above: Performed By: #### C BC ####[facility] Wckpzkvqqq4[address] [place], [place] [address]Dr. Arnoldo Taylor IG # 0.01 10e3/ul Normal 0.00-0.03 [facility] Comment on above: Performed By: #### C BC ####[facility] Ghhliwcesj9768[address] [place], [place] [address]Dr. Arnoldo Taylor IG % 0.2 % Normal 0.0-0.5 [facility] Comment on above: Performed By: #### C BC ####[facility] Admsehrksw3864[address] [place], [place] [address]Dr. Arnoldo Taylor LYMPH # 2.1 103/ul Normal 1.2-3.8 [facility] Comment on above: Performed By: #### C BC ####[facility] Uogripafoc6228[address] [place], [place] [address]Dr. Arnoldo Taylor Lymphocytes/100 WBC (Bld) 39.1 % Normal 20.5-60.0 [facility] Comment on above: Performed By: #### C BC ####[facility] Oaggiyajpa6[address] [place] [id number]. Arnoldo Taylor MANUAL DIFF REQ NO Normal [facility] Comment on above: Performed By: #### C BC ####[facility] Eqdrbsdebg2247 [place] [id number]. Arnoldo Taylor MCH (RBC) [Entitic mass] 30.4 pg Normal 26.7-34.0 [facility] Comment on above: Performed By: #### C BC ####[facility] Ozjrrxurjw9864 [place] [id number]. Arnoldo Taylor MCHC (RBC) [Mass/Vol] 31.7 g/dL Normal 29.9-35.2 [facility] Comment on above: Performed By: #### C BC ####[facility] Koowcntzeq[address] [place] [address]Dr. Arnoldo Taylor MCV (RBC) [Entitic vol] 96.1 fL Normal 81.0-99.0 [facility] Comment on above: Performed By: #### C BC ####[facility] Zyubxujnce[address] [place], [place] [id number]. Arnoldo Taylor MONO # 0.9 103/ul Critically high 0.3-0.8 [facility] Comment on above: Performed By: #### C BC ####[facility] [address]odw[address] [place], [place] [address]Dr. Arnoldo Taylor Monocytes/100 WBC (Bld) 16.8 % Critically high 1.7-12.0 [facility] Comment on above: Performed By: #### C BC ####[facility] Qvumithhzq8410 [place] [id number]. Arnoldo Taylor NEUT # 2.1 103/ul Normal 1.4-6.5 [facility] Comment on above: Performed By: #### C BC ####[facility] Jsisbkulyd[address] [place], [place] [id number]. Arnoldo Taylor Neutrophils/100 WBC (Bld) 40.1 % Critically low 43.0-75.0 [facility] Comment on above: Performed By: #### C BC ####[facility] Qcfpxacalp8724 [place] [id number]. Arnoldo Taylor Platelet mean volume (Bld) [Entitic vol] 9.7 fL Normal 9.5-13.5 [facility] Comment on above: Performed By: #### C BC ####[facility] Qkgfceeahp3419 [place] [id number]. Arnoldo Taylor PLT 115 103/ul Critically low 150-450 [facility] Comment on above: Performed By: #### C BC ####[facility] Pjsktudela4194 [place] [id number]. Arnoldo Taylor RBC 3.32 106/ul Critically low 4.20-5.40 [facility] Comment on above: Performed By: #### C BC ####[facility] Fjotetuwqv1787 [place] [id number]. Arnoldo Taylor WBC 5.2 103/ul Normal 4.0-11.0 [facility] Comment on above: Performed By: #### C BC ####[facility] Vqiapssgsz5386 [place] [id number]. Arnoldo Taylro Basophils/100 WBC (Bld) 0.0 % Critically low 0.2-2.0 [facility] Comment on above: Performed By: #### C BC ####[facility] Rhsdpaioaf6063 [place] [id number]. Arnoldo Taylor Eosinophils/100 WBC (Bld) 4.5 % Normal 0.9-7.0 [facility] Comment on above: Performed By: #### C BC ####[facility] Nldnslvrrg5868 [place] [id number]. Arnoldo Taylor Erythrocyte distribution width (RBC) [Ratio] 13.8 % Normal 11.0-15.0 [facility] Comment on above: Performed By: #### C BC ####[facility] Xfsrkjcfso7160 [place] [id number]. Arnoldo Taylor Hematocrit (Bld) [Volume fraction] 30.5 % Critically low 36.0-48.0 [facility] Comment on above: Performed By: #### C BC ####[facility] Zhfwpogelu3831 [place] [id number]. Arnoldo Taylor Hemoglobin (Bld) [Mass/Vol] 9.8 g/dL Critically low 12.0-16.0 [facility] Comment on above: Performed By: #### C BC ####[facility] Suikrzmkjc0569 [place] [id number]. Arnoldo Taylor IG # 0.00 10e3/ul Normal 0.00-0.03 [facility] Comment on above: Performed By: #### C BC ####[facility] Cijltcxaww5734 [place] [id number]. Arnoldo Taylor IG % 0.0 % Normal 0.0-0.5 [facility] Comment on above: Performed By: #### C BC ####[facility] Xdpnqmmnzt5816 [place] [address]Dr. Arnoldo Taylor LYMPH # 1.8 103/ul Normal 1.2-3.8 [facility] Comment on above: Performed By: #### C BC ####[facility] Otqkfvstqe5377 [place] [id number]. Arnoldo Taylor Lymphocytes/100 WBC (Bld) 41.3 % Normal 20.5-60.0 [facility] Comment on above: Performed By: #### C BC ####[facility] Trrdeoaque6880 [place] [phone]. Arnoldo Taylor MCH (RBC) [Entitic mass] 30.8 pg Normal 26.7-34.0 [facility] Comment on above: Performed By: #### C BC ####[facility] Zsjxrywwmr5743 [place] [id number]. Arnoldo Taylor MCHC (RBC) [Mass/Vol] 32.1 g/dL Normal 29.9-35.2 [facility] Comment on above: Performed By: #### C BC ####[facility] Rusuoednkw7970 [place] [id number] Arnoldo Taylor MCV (RBC) [Entitic vol] 95.9 fL Normal 81.0-99.0 [facility] Comment on above: Performed By: #### C BC ####[facility] Yscpbkfagr4529 [place] [phone]. Arnoldo Taylor MONO # 0.7 103/ul Normal 0.3-0.8 [facility] Comment on above: Performed By: #### C BC ####[facility] Nyawiddlok7038 [place] [phone]. Arnoldo Taylor Monocytes/100 WBC (Bld) 16.3 % Critically high 1.7-12.0 [facility] Comment on above: Performed By: #### C BC ####[facility] Qsumqpzzyw1157 [place] [address]Dr. Arnoldo Taylor NEUT # 1.7 103/ul Normal 1.4-6.5 [facility] Comment on above: Performed By: #### C BC ####[facility] Ktdgnnyivk7688 [place] [address]Dr. Arnoldo Taylor Neutrophils/100 WBC (Bld) 37.9 % Critically low 43.0-75.0 [facility] Comment on above: Performed By: #### C BC ####[facility] Fpusqmifbf3086 [place] [address]Dr. Arnoldo Taylor Platelet mean volume (Bld) [Entitic vol] 9.4 fL Critically low 9.5-13.5 [facility] Comment on above: Performed By: #### C BC ####[facility] Jezlungvuo3374 [place] [id number]. Arnoldo Taylor PLT 94 103/ul Critically low 150-450 [facility] Comment on above: Performed By: #### C BC ####[facility] Klmrjagvvf8269 [place] [id number]. Lynettesujata Taylor RBC 3.18 106/ul Critically low 4.20-5.40 [facility] Comment on above: Performed By: #### C BC ####[facility] Gqturasaxq1614 [place] [phone]. Arnoldo Brandon WBC 4.4 103/ul Normal 4.0-11.0 [facility] Comment on above: Performed By: #### C BC ####[facility] Nxemcmjagw8675 [place] [address]DrTye Taylor PROF 14(COMP METB)on 022 Albumin [Mass/Vol] 2.4 g/dL Critically low 3.4-5.0 [facility] Comment on above: Performed By: #### C MP ####[facility] Jrfcqzbhrn5061 [place] [address]DrTye Taylor Albumin/Globulin [Mass ratio] 0.7 {ratio} Normal [facility] Comment on above: Performed By: #### C MP ####[facility] Tpelarfbyh4747 [place] [address]Dr. Arnoldo Taylor ALP [Catalytic activity/Vol] 113 U/L Normal 46-116 [facility] Comment on above: Performed By: #### C MP ####[facility] Enhynyswbs[address] [place], [place] [address]Dr. Arnoldo Taylor ALT [Catalytic activity/Vol] 21 U/L Normal 14-59 [facility] Comment on above: Performed By: #### C MP ####[facility] Ppgmudgikh9969 [place] [address]Dr. Arnoldo Taylor Anion gap [Moles/Vol] 8.8 mmol/L Normal [facility] Comment on above: Performed By: #### C MP ####[facility] Zhizyrbphq7570 [place] [address]Dr. Arnoldo Taylor AST [Catalytic activity/Vol] 31 U/L Normal 15-37 [facility] Comment on above: Performed By: #### C MP ####[facility] Zxwitrnuit0953 [place] [address]DrTye Taylor Bilirubin [Mass/Vol] 0.2 mg/dL Normal 0.2-1.0 [facility] Comment on above: Performed By: #### C MP ####[facility] Pwwkqfpaom4618 [place] [address]DrTye Taylor Calcium [Mass/Vol] 8.2 mg/dL Critically low 8.5-10.1 [facility] Comment on above: Performed By: #### C MP ####[facility] Qquuteuwgk8136 [place] [address]Dr. Arnoldo Taylor Chloride [Moles/Vol] 108 mmol/L Critically high 98-107 [facility] Comment on above: Performed By: #### C MP ####[facility] Ithstswdxi5246 [place] [address]Dr. Arnoldo Taylor CO2 [Moles/Vol] 26.8 mmol/L Normal 21.0-32.0 [facility] Comment on above: Performed By: #### C MP ####[facility] Bcxwuxbhgg7755 [place] [address]Dr. Arnoldo Taylor Creatinine [Mass/Vol] 0.94 mg/dL Normal 0.55-1.02 [facility] Comment on above: Performed By: #### C MP ####[facility] Aszjiqpulc6360 [place] [address]Dr. Arnoldo Taylor EGFR-AF LIBYAN >60 Normal >=60 [facility] Comment on above: Performed By: #### C MP ####[facility] Nphbuvwfds4969 [place] [address]Dr. Arnoldo Taylor EGFR-NON AF LIBYAN 57 mL/min/1.73m2 Critically low >=60 [facility] Comment on above: Performed By: #### C MP ####[facility] Ptfgdwmmkx8514 [place] [address]Dr. Arnoldo Taylor Globulin (S) [Mass/Vol] 3.3 g/dL Normal [facility] Comment on above: Performed By: #### C MP ####[facility] Umodusphkx8031 [place] [address]Dr. Arnoldo Taylor Glucose [Mass/Vol] 106 mg/dL Normal 74-106 [facility] Comment on above: Performed By: #### C MP ####[facility] Ubwphrwrbi0496 [place] [address]Dr. Lynettesujata Brandon Potassium [Moles/Vol] 3.6 mmol/L Normal 3.5-5.1 [facility] Comment on above: Performed By: #### C MP ####[facility] Ejigsrupse1818 [place] [phone]. Arnoldo Taylor Protein [Mass/Vol] 5.7 g/dL Critically low 6.4-8.2 [facility] Comment on above: Performed By: #### C MP ####[facility] Zekdrqomzq1932 [place] [phone]. Arnoldo Taylor Sodium [Moles/Vol] 140 mmol/L Normal 136-145 [facility] Comment on above: Performed By: #### C MP ####[facility] Ciokzzaqom[address] [place], [place] [id number]. Arnoldo Taylor Urea nitrogen [Mass/Vol] 13.0 mg/dL Normal 7.0-18.0 [facility] Comment on above: Performed By: #### C MP ####[facility] Ekxrzcshta39[address] [place], [place] [address]Dr. Arnoldo Taylor Urea nitrogen/Creatinine [Mass ratio] 13.8 mg/mg Normal [facility] Comment on above: Performed By: #### C MP ####[facility] Vqfmcijxxh9[address] [place], [place] [id number]. Arnoldo Taylor CBC AUTO DIFFon 01-10-2022 BASO # 0.0 103/ul Normal 0.0-0.1 [facility] Comment on above: Performed By: #### C BC ####[facility] Axzaurebqo49[address] [place], [place] [address]Dr. Arnoldo Taylor Basophils/100 WBC (Bld) 0.1 % Critically low 0.2-2.0 [facility] Comment on above: Performed By: #### C BC ####[facility] Jzgeijtqvz252[address] [place], [place] [id number]. Arnoldo Taylor EO # 0.1 103/ul Normal 0.0-0.7 [facility] Comment on above: Performed By: #### C BC ####[facility] Lelinscors[address] [place], [place] [address]Dr. Arnoldo Brandon Eosinophils/100 WBC (Bld) 1.6 % Normal 0.9-7.0 [facility] Comment on above: Performed By: #### C BC ####[facility] Tofgizniqb6233 [place] [address]Dr. Arnoldo Brandon Erythrocyte distribution width (RBC) [Ratio] 13.2 % Normal 11.0-15.0 [facility] Comment on above: Performed By: #### C BC ####[facility] Negrhgqicn1980 [place] [address]Dr. Arnoldo Taylor Hematocrit (Bld) [Volume fraction] 35.4 % Critically low 36.0-48.0 [facility] Comment on above: Performed By: #### C BC ####[facility] Zxunklxivk4143[address] [place], [place] [address]Dr. Arnoldo Taylor Hemoglobin (Bld) [Mass/Vol] 11.6 g/dL Critically low 12.0-16.0 [facility] Comment on above: Performed By: #### C BC ####[facility] Krgosukoku7807[address] [place], [place] [address]Dr. Arnoldo Taylor IG # 0.08 10e3/ul Critically high 0.00-0.03 [facility] Comment on above: Performed By: #### C BC ####[facility] Cyztsfljew[address] [place], [place] [address]Dr. Arnoldo Taylor IG % 1.2 % Critically high 0.0-0.5 [facility] Comment on above: Performed By: #### C BC ####[facility] Ulegdqleix30[address] [place], [place] [address]Dr. Arnoldo Taylor LYMPH # 1.8 103/ul Normal 1.2-3.8 [facility] Comment on above: Performed By: #### C BC ####[facility] Yjeyjjtrhj01[address] [place], [place] [address]Dr. Arnoldo Taylor Lymphocytes/100 WBC (Bld) 26.6 % Normal 20.5-60.0 [facility] Comment on above: Performed By: #### C BC ####[facility] Nyrdnblixw192[address] [place], [place] [address]Dr. Arnoldo Taylor MANUAL DIFF REQ NO Normal [facility] Comment on above: Performed By: #### C BC ####[facility] Xustejirbh7994 [place] [address]Dr. Arnoldo Taylor MCH (RBC) [Entitic mass] 30.5 pg Normal 26.7-34.0 [facility] Comment on above: Performed By: #### C BC ####[facility] Apwwfveqax8583 [place] [address]Dr. Arnoldo Taylor MCHC (RBC) [Mass/Vol] 32.8 g/dL Normal 29.9-35.2 [facility] Comment on above: Performed By: #### C BC ####[facility] Jxphzaobba5[address] [place], [place] [address]Dr. Arnoldo Taylor MCV (RBC) [Entitic vol] 93.2 fL Normal 81.0-99.0 [facility] Comment on above: Performed By: #### C BC ####[facility] Piaemlthzs85[address] [place], [place] [address]DrTye Taylor MONO # 0.9 103/ul Critically high 0.3-0.8 [facility] Comment on above: Performed By: #### C BC ####[facility] Ztpfcaxymc68[address] [place], [place] [address]DrTye Taylor Monocytes/100 WBC (Bld) 13.6 % Critically high 1.7-12.0 [facility] Comment on above: Performed By: #### C BC ####[facility] Ffxqsiunmh501[address] [place], [place] [address]DrTye Taylor NEUT # 3.8 103/ul Normal 1.4-6.5 [facility] Comment on above: Performed By: #### C BC ####[facility] Ozrunyfokl8466[address] [place], [place] [address]DrTye Taylor Neutrophils/100 WBC (Bld) 56.9 % Normal 43.0-75.0 [facility] Comment on above: Performed By: #### C BC ####[facility] Dkiinnriqq8737[address] [place], [place] [address]DrTye Taylor Platelet mean volume (Bld) [Entitic vol] 10.0 fL Normal 9.5-13.5 [facility] Comment on above: Performed By: #### C BC ####[facility] Khgjuzphqz9079 [place] [address]Dr. Arnoldo Taylor PLT 128 103/ul Critically low 150-450 [facility] Comment on above: Performed By: #### C BC ####[facility] Ajjriznvpu0017 [place] [id number]. Arnoldo Taylor RBC 3.80 106/ul Critically low 4.20-5.40 [facility] Comment on above: Performed By: #### C BC ####[facility] Mzddbslaiz9794 [place] [address]Dr. Arnoldo Taylor WBC 6.7 103/ul Normal 4.0-11.0 [facility] Comment on above: Performed By: #### C BC ####[facility] Dsjlobbykj9897 [place] [address]Dr. Arnoldo Taylor CT HEAD WO CONon 01-10-2022 CT HEAD WO CON Normal [facility] CULTURE URINEon 01-10-2022 CULTURE URINE Culture Observations : LIGHT GROWTH OF MIXED GENITAL ZAYRA. NO POTENTIAL PATHOGENS SEEN. Normal [facility] Comment on above: Performed By: #### U RCX ####[facility] Trsklbkxlx7[address] [place], [place] [address]Dr. Arnoldo Brandon ER URINE PROFILEon 2 Bilirubin Ql (U) Negative Normal NEGATIVE [facility] Comment on above: Performed By: #### CHARLY WRIGHTRO ####[facility] Gktkoammeu4318 [place] [id number]. Arnoldo Taylor Clarity (U) CLEAR Normal CLEAR [facility] Comment on above: Performed By: #### CHARLY WRIGHTRO ####[facility] Klyjzfvmmw2535 [place] [phone]. Arnoldo Taylor Color (U) LT. YELLOW Normal YELLOW [facility] Comment on above: Performed By: #### CHARLY WRIGHTRO ####[facility] Smmesrxpbg[address] [place], [place] [address]Dr. Arnoldo SIMMONS A micrscopic examination will be performed if indicated. Normal [facility] Comment on above: Performed By: #### JESSICA WRIGHT ####[facility] Fechowwnhd30[address] [place], [place] [address]Dr. Arnoldo Taylor Glucose Ql (U) Negative Normal NEGATIVE [facility] Comment on above: Performed By: #### JESSICA WRIGHT ####[facility] Wcbxzsgejn456[address] [place], [place] [address]Dr. Arnoldo Taylor Hemoglobin Ql (U) TRACE-INTACT Abnormal NEGATIVE [facility] Comment on above: Performed By: #### JESSICA WRIGHT ####[facility] Tylajsgdji972[address] [place], [place] [address]Dr. Arnoldo Taylor Ketones Ql (U) 15 mg/dl Abnormal NEGATIVE [facility] Comment on above: Performed By: #### JESSICA WRIGHT ####[facility] Ksixgrcmxg99[address] [place], [place] [address]Dr. Arnoldo Taylor LEUKOCYTES SMALL Abnormal NEGATIVE [facility] Comment on above: Performed By: #### JESSICA WRIGHT ####[facility] Dokjxpxnsg752[address] [place], [place] [address]Dr. Arnoldo Taylor Nitrite Ql (U) Negative Normal NEGATIVE [facility] Comment on above: Performed By: #### JESSICA WRIGHT ####[facility] Xbqrgdyuke9912[address] [place], [place] [address]Dr. Arnoldo Taylor pH (U) 8.5 [pH] Normal 5-9 [facility] Comment on above: Performed By: #### JESSICA WRIGHT ####[facility] Keubgwfvda66[address] [place], [place] [address]Dr. Arnoldo Taylor SPEC GRAVITY 1.015 Normal 1.005-<=1.025 [facility] Comment on above: Performed By: #### JESSICA WRIGHT ####[facility] Wsonrvnnff27[address] [place], [place] [address]Dr. Arnoldo Taylor UA PROTEIN Negative Normal NEGATIVE/ TRACE [facility] Comment on above: Performed By: #### E JACEK UMICRO ####[facility] Nzrmfepiss2851 [place] [address]Dr. Arnoldo Taylor UR MICRO IND INDICATED Normal [facility] Comment on above: Performed By: #### E JACEK UMICRO ####[facility] Fsvyrfhcre6091 [place] [address]Dr. Arnoldo Taylor Urobilinogen Qn (U) 0.2 {Adreinne'U}/dL Normal 0.2 - 1. 0 [facility] Comment on above: Performed By: #### CHARLY WRIGHTRO ####[facility] Fjjytlnjkw67[address] [place], [place] [address]Dr. Arnoldo Taylor LACTATE/LACTIC ACIDon 2021 Lactate [Moles/Vol] 2.1 mmol/L Critically high 0.4-1.9 [facility] Comment on above: Performed By: #### L ACT ####[facility] Lvdxnnqqdb1203 [place] [address]Dr. Arnoldo Taylor Lactate [Moles/Vol] 1.0 mmol/L Normal 0.4-1.9 [facility] Comment on above: Performed By: #### L ACT ####[facility] Bvtburfpud[address] [place], [place] [address]Dr. Arnoldo Taylor PROF 14(COMP METB)on 022 Albumin [Mass/Vol] 2.8 g/dL Critically low 3.4-5.0 [facility] Comment on above: Performed By: #### C MP ####[facility] Unppitpazr7536 [place] [address]Dr. Arnoldo Taylor Albumin/Globulin [Mass ratio] 0.8 {ratio} Normal [facility] Comment on above: Performed By: #### C MP ####[facility] Avewkvskrr65[address] [place], [place] [address]Dr. Arnoldo Taylor ALP [Catalytic activity/Vol] 133 U/L Critically high 46-116 [facility] Comment on above: Performed By: #### C MP ####[facility] Gznicifflm1959 [place] [id number]. Arnoldo Taylor ALT [Catalytic activity/Vol] 21 U/L Normal 14-59 [facility] Comment on above: Performed By: #### C MP ####[facility] Lhzlsgszuf1046 [place] [id number]. Arnoldo Taylor Anion gap [Moles/Vol] 12.9 mmol/L Normal [facility] Comment on above: Performed By: #### C MP ####[facility] Rgmeqwdlnu8382 [place] [phone]. Arnoldo Taylor AST [Catalytic activity/Vol] 22 U/L Normal 15-37 [facility] Comment on above: Performed By: #### C MP ####[facility] Apctveqcsr8268 [place] [address]Dr. Arnoldo Taylor Bilirubin [Mass/Vol] 0.5 mg/dL Normal 0.2-1.0 [facility] Comment on above: Performed By: #### C MP ####[facility] Cfzkebqkcj7894 [place] [id number]. Arnoldo Taylor Calcium [Mass/Vol] 8.7 mg/dL Normal 8.5-10.1 [facility] Comment on above: Performed By: #### C MP ####[facility] Jmqoniqgex3053 [place] [address]Dr. Arnoldo Taylor Chloride [Moles/Vol] 105 mmol/L Normal 98-107 [facility] Comment on above: Performed By: #### C MP ####[facility] Xreeueakjf7604 [place] [address]Dr. Arnoldo Taylor CO2 [Moles/Vol] 26.5 mmol/L Normal 21.0-32.0 [facility] Comment on above: Performed By: #### C MP ####[facility] Rntfjkzkio3152 [place] [phone]. Arnoldo Taylor Creatinine [Mass/Vol] 1.06 mg/dL Critically high 0.55-1.02 [facility] Comment on above: Performed By: #### C MP ####[facility] Omnxtszyxa0464 [place] [phone]. Arnoldo Taylor EGFR-AF LIBYAN >60 Normal >=60 [facility] Comment on above: Performed By: #### C MP ####[facility] Smqphpylfx5845 [place] [address]Dr. Arnoldo Taylor EGFR-NON AF LIBYAN 50 mL/min/1.73m2 Critically low >=60 [facility] Comment on above: Performed By: #### C MP ####[facility] Dtgoudoshk0367 [place] [address]Dr. Arnoldo Taylor Globulin (S) [Mass/Vol] 3.7 g/dL Normal [facility] Comment on above: Performed By: #### C MP ####[facility] Kibtmlyohh17[address] [place], [place] [address]Dr. Arnoldo Taylor Glucose [Mass/Vol] 110 mg/dL Critically high 74-106 [facility] Comment on above: Performed By: #### C MP ####[facility] Qvkawjagae719[address] [place], [place] [address]Dr. Arnoldo Taylor Potassium [Moles/Vol] 3.4 mmol/L Critically low 3.5-5.1 [facility] Comment on above: Performed By: #### C MP ####[facility] Epgeiobbvt2468[address] [place], [place] [address]Dr. Arnoldo Taylor Protein [Mass/Vol] 6.5 g/dL Normal 6.4-8.2 [facility] Comment on above: Performed By: #### C MP ####[facility] Prqljtsbou8299[address] [place], [place] [address]Dr. Arnoldo Taylor Sodium [Moles/Vol] 141 mmol/L Normal 136-145 [facility] Comment on above: Performed By: #### C MP ####[facility] Lrjvknlrtm2667[address] [place], [place] [address]Dr. Arnoldo Taylor Urea nitrogen [Mass/Vol] 22.0 mg/dL Critically high 7.0-18.0 [facility] Comment on above: Performed By: #### C MP ####[facility] Khmadrokky4352 [place] [address]Dr. Arnoldo Taylor Urea nitrogen/Creatinine [Mass ratio] 20.8 mg/mg Normal [facility] Comment on above: Performed By: #### C MP ####[facility] Mkqqsieufl16[address] [place], [place] [address]Dr. Arnoldo Taylor URINE MICROSCOPIC ONLYon BACTERIA TRACE Abnormal NONE SEEN [facility] Comment on above: Performed By: #### CHARLY WRIGHTRO ####[facility] Vsomexklch8013[address] [place], [place] [address]Dr. Arnoldo Taylor Bacteria identified Cx Nom (U) INDICATED Normal [facility] Comment on above: Performed By: #### JESSICA WRIGHT ####[facility] Hxlgvqxqes[address] [place], [place] [address]Dr. Arnoldo Taylor CAST NONE SEEN Normal NONE SEEN [facility] Comment on above: Performed By: #### JESSICA WRIGHT ####[facility] Odbnnmzgmg1299[address] [place], [place] [address]Dr. Arnoldo Taylor Crystals LM Nom (Urine sed) NONE SEEN Normal NONE SEEN [facility] Comment on above: Performed By: #### JESSICA WRIGHT ####[facility] Hrskxngvdi4743[address] [place], [place] [address]Dr. Arnoldo Taylor Epithelial cells LM Ql (Urine sed) RARE Normal NONE SEEN /RARE [facility] Comment on above: Performed By: #### JESSICA WRIGHT ####[facility] Vuxpstsjao4978[address] [place], [place] [address]Dr. Arnoldo Tyalor MUCOUS NONE SEEN Normal NONE SEEN [facility] Comment on above: Performed By: #### CHARLY WRIGHTRO ####[facility] Bsbnxkgbuz1964[address] [place], [place] [address]Dr. Arnoldo Taylor RBC 0-2 Normal 0-2 [facility] Comment on above: Performed By: #### CHARLY WRIGHTRO ####[facility] Jqivwkonqx70[address] [place], [place] [address]Dr. Arnoldo Taylor WBC 5-10 Abnormal NONE SEEN [facility] Comment on above: Performed By: #### E JESSICA READ ####[facility] Rcdcwfneew7646 [place] [id number]. Arnoldo Taylor XR CHEST 1 Von 01-10-2022 XR CHEST 1 V Normal [facility] CBC AUTO DIFFon 01-09-2022 BASO # 0.0 103/ul Normal 0.0-0.1 [facility] Comment on above: Performed By: #### C BC ####[facility] Yzayikwhvq5140 [place] [address]Dr. Lynettesujata Taylor Basophils/100 WBC (Bld) 0.1 % Critically low 0.2-2.0 [facility] Comment on above: Performed By: #### C BC ####[facility] Fsmwvugfyb45[address] [place], [place] [address]Dr. Arnoldo Brandon EO # 0.1 103/ul Normal 0.0-0.7 [facility] Comment on above: Performed By: #### C BC ####[facility] Cmonzbcswq[address] [address] [place], [place] [address]Dr. Lynettesujata Taylor Eosinophils/100 WBC (Bld) 1.2 % Normal 0.9-7.0 [facility] Comment on above: Performed By: #### C BC ####[facility] Dxzjeulbsm2398 [place] [address]Dr. Arnoldo Taylor Erythrocyte distribution width (RBC) [Ratio] 13.2 % Normal 11.0-15.0 [facility] Comment on above: Performed By: #### C BC ####[facility] Sjwfdnfagj5355 [place] [address]Dr. Arnoldo Taylor Hematocrit (Bld) [Volume fraction] 38.0 % Normal 36.0-48.0 [facility] Comment on above: Performed By: #### C BC ####[facility] Nqrcerbpju[address] [place], [place] [address]Dr. Arnoldo Taylor Hemoglobin (Bld) [Mass/Vol] 12.4 g/dL Normal 12.0-16.0 [facility] Comment on above: Performed By: #### C BC ####[facility] Gxmtwypfui7975 [place] [id number]. Arnoldo Taylor IG # 0.03 10e3/ul Normal 0.00-0.03 [facility] Comment on above: Performed By: #### C BC ####[facility] Plhlnamftw4144 [place] [address]Dr. Arnoldo Taylor IG % 0.4 % Normal 0.0-0.5 [facility] Comment on above: Performed By: #### C BC ####[facility] Rsivoezttb1590 [place] [address]Dr. Arnoldo Brandon LYMPH # 2.1 103/ul Normal 1.2-3.8 [facility] Comment on above: Performed By: #### C BC ####[facility] Sunublgivq0984 [place] [address]Dr. Arnoldo Taylor Lymphocytes/100 WBC (Bld) 25.8 % Normal 20.5-60.0 [facility] Comment on above: Performed By: #### C BC ####[facility] Zdrrteyedx1532 [place] [address]Dr. Lynettesujata Taylor MANUAL DIFF REQ NO Normal [facility] Comment on above: Performed By: #### C BC ####[facility] Pcudxrilte0183 [place] [address]Dr. Arnoldo Taylor MCH (RBC) [Entitic mass] 30.8 pg Normal 26.7-34.0 [facility] Comment on above: Performed By: #### C BC ####[facility] Bppipxzulc0989 [place] [address]Dr. Arnoldo Taylor MCHC (RBC) [Mass/Vol] 32.6 g/dL Normal 29.9-35.2 [facility] Comment on above: Performed By: #### C BC ####[facility] Fkdwdmvrqf1925 [place] [address]Dr. Arnoldo Taylor MCV (RBC) [Entitic vol] 94.5 fL Normal 81.0-99.0 [facility] Comment on above: Performed By: #### C BC ####[facility] Derymzlxsq[address] [place] [address]Qz. Arnoldo Taylor MONO # 0.8 103/ul Normal 0.3-0.8 [facility] Comment on above: Performed By: #### C BC ####[facility] Zjdambrvcj5665 [place] [address]Dr. Arnoldo Taylor Monocytes/100 WBC (Bld) 10.0 % Normal 1.7-12.0 [facility] Comment on above: Performed By: #### C BC ####[facility] Dajdurqrxr[address] [place], [place] [address]Dr. Arnoldo Taylor NEUT # 5.0 103/ul Normal 1.4-6.5 [facility] Comment on above: Performed By: #### C BC ####[facility] Uypvapxhhk7[address] [place], [place] [address]Dr. Arnoldo Taylor Neutrophils/100 WBC (Bld) 62.5 % Normal 43.0-75.0 [facility] Comment on above: Performed By: #### C BC ####[facility] Snvhlmrzgc4917[address] [place], [place] [address]Dr. Arnoldo Taylor Platelet mean volume (Bld) [Entitic vol] 9.9 fL Normal 9.5-13.5 [facility] Comment on above: Performed By: #### C BC ####[facility] Hejjidepsm3368 [place] [address]Dr. Arnoldo Taylor PLT 149 103/ul Critically low 150-450 [facility] Comment on above: Performed By: #### C BC ####[facility] Fbydsyahfu9411 [place] [id number]. Arnoldo Tayolr RBC 4.02 106/ul Critically low 4.20-5.40 [facility] Comment on above: Performed By: #### C BC ####[facility] Ooduaazgha02[address] [place], [place] [id number]. Arnoldo Taylor WBC 8.1 103/ul Normal 4.0-11.0 [facility] Comment on above: Performed By: #### C BC ####[facility] Mbpnehixgp9[address] [place], [place] [address]Dr. Arnoldo Taylor CULTURE BLOODon 01-09-2022 Microscopic examination of blood, culture Culture Observations: NO GROWTH AT 5 DAYS. Normal [facility] Comment on above: Performed By: #### B LDCX1 ####[facility] Rkoutdwmug0770 [place] [address]Dr. Arnolod Taylor Covid-19 PCR (CVDTB)on 12-31 SARS-CoV-2 (COVID-19) RNA JAMMIE+probe Ql (Unsp spec) Not detected Normal NOT DETECTED [facility] Comment on above: Result Comment: When [...] for this test is supported by the Senior Benefits Specialist of Health and Human Service's declaration that [...] be used). Performed By: #### C VDTBH ####[facility] Enxmdwsmtf1450 [place] [address]Dr. Arnoldo Taylor LACTATE/LACTIC ACIDon 2021 Lactate [Moles/Vol] 2.1 mmol/L Critically high 0.4-1.9 [facility] Comment on above: Performed By: #### L ACT ####[facility] Dvjsvrfrzz70[address] [place], [place] [address]DrTye Arnoldo Taylor PROF 14(COMP METB)on 022 Albumin [Mass/Vol] 3.1 g/dL Critically low 3.4-5.0 [facility] Comment on above: Performed By: #### C MP ####[facility] Lqimqcohdl1131 [place] [address]Dr. Arnoldo Brandon Albumin/Globulin [Mass ratio] 0.8 {ratio} Normal [facility] Comment on above: Performed By: #### C MP ####[facility] Ibgxdthbzy75[address] [place], [place] [address]Dr. Arnoldo Brandon ALP [Catalytic activity/Vol] 146 U/L Critically high 46-116 [facility] Comment on above: Performed By: #### C MP ####[facility] Mqgddpcuts0656[address] [place], [place] [address]Dr. Arnoldo Brandon ALT [Catalytic activity/Vol] 20 U/L Normal 14-59 [facility] Comment on above: Performed By: #### C MP ####[facility] Tykmvqprzd968[address] [place], [place] [address]Dr. Arnoldo Taylor Anion gap [Moles/Vol] 13.7 mmol/L Normal [facility] Comment on above: Performed By: #### C MP ####[facility] Kbikhjmdsy3364[address] [place], [place] [address]Dr. Arnoldo Brandon AST [Catalytic activity/Vol] 22 U/L Normal 15-37 [facility] Comment on above: Performed By: #### C MP ####[facility] Uoaoisigwb929[address] [place], [place] [address]Dr. Arnoldo Taylor Bilirubin [Mass/Vol] 0.4 mg/dL Normal 0.2-1.0 [facility] Comment on above: Performed By: #### C MP ####[facility] Xyhjmbubaq5[address] [place], [place] [address]Dr. Arnoldo Taylor Calcium [Mass/Vol] 9.2 mg/dL Normal 8.5-10.1 [facility] Comment on above: Performed By: #### C MP ####[facility] Koxuuyacsp198[address] [place], [place] [address]Dr. Arnoldo Taylor Chloride [Moles/Vol] 103 mmol/L Normal 98-107 [facility] Comment on above: Performed By: #### C MP ####[facility] Hdupwikxsv4755[address] [place], [place] [address]Dr. Arnoldo Taylor CO2 [Moles/Vol] 28.1 mmol/L Normal 21.0-32.0 [facility] Comment on above: Performed By: #### C MP ####[facility] Sulbiuijbg5807 [place] [address]Dr. Arnoldo Brandon Creatinine [Mass/Vol] 1.19 mg/dL Critically high 0.55-1.02 [facility] Comment on above: Performed By: #### C MP ####[facility] Dpsanhkexf939[address] [place], [place] [address]Dr. Arnoldo Brandon EGFR-AF LIBYAN 53 mL/min/1.73m2 Critically low >=60 [facility] Comment on above: Performed By: #### C MP ####[facility] Cltbamkrbc1946[address] [place], [place] [address]Dr. Arnoldo Taylor EGFR-NON AF LIBYAN 44 mL/min/1.73m2 Critically low >=60 [facility] Comment on above: Performed By: #### C MP ####[facility] Kvbfwcluhc495[address] [place], [place] [address]Dr. Arnoldo Taylor Globulin (S) [Mass/Vol] 3.9 g/dL Normal [facility] Comment on above: Performed By: #### C MP ####[facility] Flpdgjirdb9089[address] [place], [place] [address]Dr. Arnoldo Taylor Glucose [Mass/Vol] 119 mg/dL Critically high 74-106 [facility] Comment on above: Performed By: #### C MP ####[facility] Yiztzlzuzi13[address] [place], [place] [address]Dr. Arnoldo Taylor Potassium [Moles/Vol] 3.8 mmol/L Normal 3.5-5.1 [facility] Comment on above: Performed By: #### C MP ####[facility] Uyzrstmnxs0097[address] [place], [place] [address]Dr. Arnoldo Taylor Protein [Mass/Vol] 7.0 g/dL Normal 6.4-8.2 [facility] Comment on above: Performed By: #### C MP ####[facility] Csoacopabp2689[address] [place], [place] [address]Dr. Arnoldo Taylor Sodium [Moles/Vol] 141 mmol/L Normal 136-145 [facility] Comment on above: Performed By: #### C MP ####[facility] Gupjephgog035[address] [place], [place] [address]Dr. Arnoldo Taylor Urea nitrogen [Mass/Vol] 25.0 mg/dL Critically high 7.0-18.0 [facility] Comment on above: Performed By: #### C MP ####[facility] Rseambvygw0783[address] [place], [place] [address]Dr. Arnoldo Taylor Urea nitrogen/Creatinine [Mass ratio] 21.0 mg/mg Normal [facility] Comment on above: Performed By: #### C MP ####[facility] Xlgdiwzpqx024[address] [place], [place] [address]Dr. Arnoldo Taylor CBC AUTO DIFFon 01-08-2022 BASO # 0.0 103/ul Normal 0.0-0.1 [facility] Comment on above: Performed By: #### C BC ####[facility] Qjawgzvtfx88[address] [place], [place] [address]Dr. Arnoldo Brandon Basophils/100 WBC (Bld) 0.1 % Critically low 0.2-2.0 [facility] Comment on above: Performed By: #### C BC ####[facility] Xpjdgyanjr[address] [place], [place] [address]Dr. Arnoldo Taylor EO # 0.3 103/ul Normal 0.0-0.7 [facility] Comment on above: Performed By: #### C BC ####[facility] Sslpoigwht59[address] [place], [place] [address]Dr. Arnoldo Brandon Eosinophils/100 WBC (Bld) 3.8 % Normal 0.9-7.0 [facility] Comment on above: Performed By: #### C BC ####[facility] Npudtinxit3[address] [place], [place] [address]Dr. Arnoldo Taylor Erythrocyte distribution width (RBC) [Ratio] 13.5 % Normal 11.0-15.0 [facility] Comment on above: Performed By: #### C BC ####[facility] Burwsfvdpf1639 [place] [address]Dr. Arnoldo Taylor Hematocrit (Bld) [Volume fraction] 37.5 % Normal 36.0-48.0 [facility] Comment on above: Performed By: #### C BC ####[facility] Txysokegez9265 [place] [address]Dr. Arnoldo Taylor Hemoglobin (Bld) [Mass/Vol] 11.7 g/dL Critically low 12.0-16.0 [facility] Comment on above: Performed By: #### C BC ####[facility] Ebszgwcztb5666 [place] [address]Dr. Arnoldo Taylor IG # 0.01 10e3/ul Normal 0.00-0.03 [facility] Comment on above: Performed By: #### C BC ####[facility] Jfbfaleeah2181 [place] [address]Dr. Arnoldo Taylor IG % 0.1 % Normal 0.0-0.5 [facility] Comment on above: Performed By: #### C BC ####[facility] Whshllxhre4729 [place] [address]Dr. Arnoldo Brandon LYMPH # 4.1 103/ul Critically high 1.2-3.8 [facility] Comment on above: Performed By: #### C BC ####[facility] Jcmdardnuq6639 [place] [address]Dr. Lynettesujata Taylor Lymphocytes/100 WBC (Bld) 57.4 % Normal 20.5-60.0 [facility] Comment on above: Performed By: #### C BC ####[facility] Ggkspkhtfp5535 [place] [address]DrTye Lynettesujata Taylor MANUAL DIFF REQ NO Normal [facility] Comment on above: Performed By: #### C BC ####[facility] Tzmuvcvbwf8329 [place] [address]DrTye Lynettesujata Taylor MCH (RBC) [Entitic mass] 30.5 pg Normal 26.7-34.0 [facility] Comment on above: Performed By: #### C BC ####[facility] T[address]uiwzxkl98[address] [place], [place] [address]Dr. Arnoldo Taylor MCHC (RBC) [Mass/Vol] 31.2 g/dL Normal 29.9-35.2 [facility] Comment on above: Performed By: #### C BC ####[facility] Ehxftneaje6469 [place] [id number]. Arnoldo Taylor MCV (RBC) [Entitic vol] 97.9 fL Normal 81.0-99.0 [facility] Comment on above: Performed By: #### C BC ####[facility] Gfyjsffdrz0799 [place] [address]Dr. Arnoldo Brandon MONO # 0.8 103/ul Normal 0.3-0.8 [facility] Comment on above: Performed By: #### C BC ####[facility] Bftqedppjf4895 [place] [address]Dr. Lynettesujata Taylor Monocytes/100 WBC (Bld) 11.0 % Normal 1.7-12.0 [facility] Comment on above: Performed By: #### C BC ####[facility] Fgbxxtyicr7475 [place] [address]Dr. Arnoldo Brandon NEUT # 2.0 103/ul Normal 1.4-6.5 [facility] Comment on above: Performed By: #### C BC ####[facility] Ziehjseuff8971 [place] [address]Dr. Arnoldo Brandon Neutrophils/100 WBC (Bld) 27.6 % Critically low 43.0-75.0 [facility] Comment on above: Performed By: #### C BC ####[facility] Ptnwsviugs3336 [place] [address]Dr. Arnoldo Brandon Platelet mean volume (Bld) [Entitic vol] 9.9 fL Normal 9.5-13.5 [facility] Comment on above: Performed By: #### C BC ####[facility] Vwxowjzlpi6651 [place] [id number]. Arnoldo Brandon PLT 142 103/ul Critically low 150-450 [facility] Comment on above: Performed By: #### C BC ####[facility] Xhdebumzqe3612 [place] [address]Dr. Lynettesujata Brandon RBC 3.83 106/ul Critically low 4.20-5.40 [facility] Comment on above: Performed By: #### C BC ####[facility] Enhfmmlckm1706 [place] [address]Dr. Arnoldo Taylor WBC 7.2 103/ul Normal 4.0-11.0 [facility] Comment on above: Performed By: #### C BC ####[facility] Frkrjwavto6775 [place] [address]Dr. Arnoldo Taylor PROF 14(COMP METB)on 022 Albumin [Mass/Vol] 2.5 g/dL Critically low 3.4-5.0 [facility] Comment on above: Performed By: #### C MP ####[facility] Vesmqymupp032[address] [place], [place] [address]Dr. Arnoldo Taylor Albumin/Globulin [Mass ratio] 0.7 {ratio} Normal [facility] Comment on above: Performed By: #### C MP ####[facility] Ubqbgiojuk9191 [place] [address]Dr. Arnoldo Taylor ALP [Catalytic activity/Vol] 147 U/L Critically high 46-116 [facility] Comment on above: Performed By: #### C MP ####[facility] Lyorgrmrnp1931[address] [place], [place] [address]Dr. Arnoldo Taylor ALT [Catalytic activity/Vol] 18 U/L Normal 14-59 [facility] Comment on above: Performed By: #### C MP ####[facility] Gmeqoahxwa8744 [place] [address]Dr. Arnoldo Taylor Anion gap [Moles/Vol] 7.7 mmol/L Normal [facility] Comment on above: Performed By: #### C MP ####[facility] Seedmuwcje3688[address] [place], [place] [address]Dr. Arnoldo Taylor AST [Catalytic activity/Vol] 17 U/L Normal 15-37 [facility] Comment on above: Performed By: #### C MP ####[facility] Hgnxznwfum6406[address] [place], [place] [address]Dr. Arnoldo Brandon Bilirubin [Mass/Vol] 0.3 mg/dL Normal 0.2-1.0 [facility] Comment on above: Performed By: #### C MP ####[facility] Ckrqmyijmo6743 [place] [address]Dr. Arnoldo Taylor Calcium [Mass/Vol] 8.6 mg/dL Normal 8.5-10.1 [facility] Comment on above: Performed By: #### C MP ####[facility] Mvqmtsbcaj50[address] [place], [place] [address]Dr. Lynettesujata Brandon Chloride [Moles/Vol] 109 mmol/L Critically high 98-107 [facility] Comment on above: Performed By: #### C MP ####[facility] Aqtcdjrldc8464[address] [place], [place] [address]Dr. Lynettesujata Brandon CO2 [Moles/Vol] 29.1 mmol/L Normal 21.0-32.0 [facility] Comment on above: Performed By: #### C MP ####[facility] Zrgfdqutdz8928[address] [place], [place] [address]Dr. Arnoldo Brandon Creatinine [Mass/Vol] 1.03 mg/dL Critically high 0.55-1.02 [facility] Comment on above: Performed By: #### C MP ####[facility] Srocjbzcuu790[address] [place], [place] [address]Dr. Lynettesujata Brandon EGFR-AF LIBYAN >60 Normal >=60 [facility] Comment on above: Performed By: #### C MP ####[facility] Yszgsoggbi9344[address] [place], [place] [address]Dr. Arnoldo Taylor EGFR-NON AF LIBYAN 52 mL/min/1.73m2 Critically low >=60 [facility] Comment on above: Performed By: #### C MP ####[facility] Ynlqdwlqbf6368[address] [place], [place] [address]Dr. Arnoldo Taylor Globulin (S) [Mass/Vol] 3.5 g/dL Normal [facility] Comment on above: Performed By: #### C MP ####[facility] Mxajtpbgke548[address] [place], [place] [address]Dr. Arnoldo Taylor Glucose [Mass/Vol] 94 mg/dL Normal 74-106 [facility] Comment on above: Performed By: #### C MP ####[facility] Nzuawwzpgf9830 [place] [address]Dr. Arnoldo Taylor Potassium [Moles/Vol] 3.8 mmol/L Normal 3.5-5.1 [facility] Comment on above: Performed By: #### C MP ####[facility] Dmdgglbols6196[address] [place], [place] [address]Dr. Arnoldo Taylor Protein [Mass/Vol] 6.0 g/dL Critically low 6.4-8.2 [facility] Comment on above: Performed By: #### C MP ####[facility] Jfonquplpm5878[address] [place], [place] [address]Dr. Arnoldo Taylor Sodium [Moles/Vol] 142 mmol/L Normal 136-145 [facility] Comment on above: Performed By: #### C MP ####[facility] Adctakhxgm3476[address] [place], [place] [address]Dr. Arnoldo Taylor Urea nitrogen [Mass/Vol] 21.0 mg/dL Critically high 7.0-18.0 [facility] Comment on above: Performed By: #### C MP ####[facility] Nrdxyzxxrn4459[address] [place], [place] [address]Dr. Arnoldo Taylor Urea nitrogen/Creatinine [Mass ratio] 20.4 mg/mg Normal [facility] Comment on above: Performed By: #### C MP ####[facility] Uvtgryxqad095[address] [place], [place] [address]Dr. Arnoldo Taylor CBC AUTO DIFFon 01-07-2022 BASO # 0.0 103/ul Normal 0.0-0.1 [facility] Comment on above: Performed By: #### C BC ####[facility] Wyvpgvnhqa8619[address] [place], [place] [address]Dr. Arnoldo Taylor Basophils/100 WBC (Bld) 0.3 % Normal 0.2-2.0 [facility] Comment on above: Performed By: #### C BC ####[facility] Lerccaumpg6396 [place] [address]Dr. Arnoldo Taylor EO # 0.3 103/ul Normal 0.0-0.7 [facility] Comment on above: Performed By: #### C BC ####[facility] Odysszjspr1772 [place] [address]Dr. Arnoldo Taylor Eosinophils/100 WBC (Bld) 3.5 % Normal 0.9-7.0 [facility] Comment on above: Performed By: #### C BC ####[facility] Jjxmhwesrz37[address] [place], [place] [address]Dr. Arnoldo Taylor Erythrocyte distribution width (RBC) [Ratio] 13.8 % Normal 11.0-15.0 [facility] Comment on above: Performed By: #### C BC ####[facility] Sdzqdyccwp13[address] [place], [place] [address]Dr. Arnoldo Taylor Hematocrit (Bld) [Volume fraction] 38.0 % Normal 36.0-48.0 [facility] Comment on above: Performed By: #### C BC ####[facility] Biflusiunq762[address] [place], [place] [address]Dr. Arnoldo Taylor Hemoglobin (Bld) [Mass/Vol] 11.7 g/dL Critically low 12.0-16.0 [facility] Comment on above: Performed By: #### C BC ####[facility] Kytdddgwdr89[address] [place], [place] [address]Dr. Arnoldo Taylor IG # 0.02 10e3/ul Normal 0.00-0.03 [facility] Comment on above: Performed By: #### C BC ####[facility] Psgxnyysbh07[address] [place], [place] [address]Dr. Arnoldo Taylor IG % 0.3 % Normal 0.0-0.5 [facility] Comment on above: Performed By: #### C BC ####[facility] Mumvotsboq7[address] [place], [place] [address]Dr. Arnoldo Taylor LYMPH # 4.1 103/ul Critically high 1.2-3.8 [facility] Comment on above: Performed By: #### C BC ####[facility] Bczcvkzrxj3770 [place] [id number]. Arnoldo Brandon Lymphocytes/100 WBC (Bld) 53.8 % Normal 20.5-60.0 [facility] Comment on above: Performed By: #### C BC ####[facility] Uknuqrnhbe9103 [place] [id number]. Lynettesujata Taylor MANUAL DIFF REQ NO Normal [facility] Comment on above: Performed By: #### C BC ####[facility] Ajezceanxf2863 [place] [address]Dr. Lynettesujata Taylor MCH (RBC) [Entitic mass] 30.3 pg Normal 26.7-34.0 [facility] Comment on above: Performed By: #### C BC ####[facility] Eaywvkpbsm7698 [place] [address]Dr. Lynettesujata Taylor MCHC (RBC) [Mass/Vol] 30.8 g/dL Normal 29.9-35.2 [facility] Comment on above: Performed By: #### C BC ####[facility] Pfomfavfjq9290 [place] [address]Dr. Lynettesujata Taylor MCV (RBC) [Entitic vol] 98.4 fL Normal 81.0-99.0 [facility] Comment on above: Performed By: #### C BC ####[facility] Ailcobqmlp9066 [place] [address]Dr. Arnoldo Taylor MONO # 0.9 103/ul Critically high 0.3-0.8 [facility] Comment on above: Performed By: #### C BC ####[facility] Wssqvbofdv1480 [place] [address]Dr. Arnoldo Taylor Monocytes/100 WBC (Bld) 11.6 % Normal 1.7-12.0 [facility] Comment on above: Performed By: #### C BC ####[facility] Vrhaoufeuw3563 [place] [address]Dr. Arnoldo Taylor NEUT # 2.3 103/ul Normal 1.4-6.5 [facility] Comment on above: Performed By: #### C BC ####[facility] Lmfjohnsdy0326 [place] [id number]. Arnoldo Taylor Neutrophils/100 WBC (Bld) 30.5 % Critically low 43.0-75.0 [facility] Comment on above: Performed By: #### C BC ####[facility] Pqleacwtwf1875 [place] [id number]. Arnoldo Taylor Platelet mean volume (Bld) [Entitic vol] 9.6 fL Normal 9.5-13.5 [facility] Comment on above: Performed By: #### C BC ####[facility] Lceavcysya6922 [place] [id number]. Lynettesujata Brandon PLT 157 103/ul Normal 150-450 [facility] Comment on above: Performed By: #### C BC ####[facility] Wrpfdmkrza3598 [place] [id number]. Lynettesujata Brandon RBC 3.86 106/ul Critically low 4.20-5.40 [facility] Comment on above: Performed By: #### C BC ####[facility] Ugrqbwckyg7730 [place] [id number]. Arnoldo Brandon WBC 7.7 103/ul Normal 4.0-11.0 [facility] Comment on above: Performed By: #### C BC ####[facility] Wxrkkjxwap8984 [place] [id number]. Arnoldo Taylor PROF 14(COMP METB)on 022 Albumin [Mass/Vol] 2.6 g/dL Critically low 3.4-5.0 [facility] Comment on above: Performed By: #### C MP ####[facility] Wzserdohfc9608 [place] [id number]. Arnoldo Taylor Albumin/Globulin [Mass ratio] 0.7 {ratio} Normal [facility] Comment on above: Performed By: #### C MP ####[facility] Heszilbbam4949 [place] [id number]. Arnoldo Taylor ALP [Catalytic activity/Vol] 157 U/L Critically high 46-116 [facility] Comment on above: Performed By: #### C MP ####[facility] Dabseietwp9041 [place] [id number]. Arnoldo Taylor ALT [Catalytic activity/Vol] 13 U/L Critically low 14-59 [facility] Comment on above: Performed By: #### C MP ####[facility] Vqzhjmdxse4024 [place] [address]Dr. Arnoldo Taylor Anion gap [Moles/Vol] 10.9 mmol/L Normal [facility] Comment on above: Performed By: #### C MP ####[facility] Zymvhreatg8702 [place] [address]Dr. Arnoldo Taylor AST [Catalytic activity/Vol] 19 U/L Normal 15-37 [facility] Comment on above: Performed By: #### C MP ####[facility] Ytotqddtpq1518 [place] [address]Dr. Arnoldo Taylor Bilirubin [Mass/Vol] 0.4 mg/dL Normal 0.2-1.0 [facility] Comment on above: Performed By: #### C MP ####[facility] Obiiazmaeh74[address] [place], [place] [address]Dr. Arnoldo Taylor Calcium [Mass/Vol] 8.9 mg/dL Normal 8.5-10.1 [facility] Comment on above: Performed By: #### C MP ####[facility] [address]tcrrikltv26[address] [place], [place] [address]Dr. Arnoldo Taylor Chloride [Moles/Vol] 107 mmol/L Normal 98-107 [facility] Comment on above: Performed By: #### C MP ####[facility] Imeuurwuuz3885 [place] [address]Dr. Arnoldo Taylor CO2 [Moles/Vol] 26.0 mmol/L Normal 21.0-32.0 [facility] Comment on above: Performed By: #### C MP ####[facility] [address] [place], [place] [address]Dr. Arnoldo Taylor Creatinine [Mass/Vol] 1.17 mg/dL Critically high 0.55-1.02 [facility] Comment on above: Performed By: #### C MP ####[facility] Pdjrigliox8079 [place] [id number]. Arnoldo Taylor EGFR-AF LIBYAN 54 mL/min/1.73m2 Critically low >=60 [facility] Comment on above: Performed By: #### C MP ####[facility] Dslymfiequ2662 [place] [id number]. Arnoldo Taylor EGFR-NON AF LIBYAN 45 mL/min/1.73m2 Critically low >=60 [facility] Comment on above: Performed By: #### C MP ####[facility] Fcxunlbzui3485 [place] [id number]. Arnoldo Taylor Globulin (S) [Mass/Vol] 3.7 g/dL Normal [facility] Comment on above: Performed By: #### C MP ####[facility] Opdeeevlzf5276 [place] [address]Dr. Arnoldo Taylor Glucose [Mass/Vol] 94 mg/dL Normal 74-106 [facility] Comment on above: Performed By: #### C MP ####[facility] Oablxplgrt1133 [place] [address]Dr. Arnoldo Taylor Potassium [Moles/Vol] 3.9 mmol/L Normal 3.5-5.1 [facility] Comment on above: Performed By: #### C MP ####[facility] Sqpjqlubag2728 [place] [address]Dr. Arnoldo Taylor Protein [Mass/Vol] 6.3 g/dL Critically low 6.4-8.2 [facility] Comment on above: Performed By: #### C MP ####[facility] Garxinjlog5330 [place] [id number]. Arnoldo Taylor Sodium [Moles/Vol] 140 mmol/L Normal 136-145 [facility] Comment on above: Performed By: #### C MP ####[facility] Nhqomgrdbt0309 [place] [address]Dr. Arnoldo Taylor Urea nitrogen [Mass/Vol] 28.0 mg/dL Critically high 7.0-18.0 [facility] Comment on above: Performed By: #### C MP ####[facility] Abauteuwbo5591 [place] [address]Dr. Arnoldo Taylor Urea nitrogen/Creatinine [Mass ratio] 23.9 mg/mg Normal [facility] Comment on above: Performed By: #### C MP ####[facility] [address]qtwmwz[address] [place], [place] [address]Dr. Arnoldo Taylor BNPon 01-06-2022 Natriuretic peptide B (Bld) [Mass/Vol] 382.0 pg/mL Normal <=1,800.0 [facility] Comment on above: Performed By: #### B COMMUNICATION SKILLS INSTRUCTOR, LIPA, CMP, HSTROPN ####[facility] Lbirbuxiii99[address] [place], [place] [address]Dr. Lynettesujata Taylor CBC AUTO DIFFon 01-06-2022 BASO # 0.0 103/ul Normal 0.0-0.1 [facility] Comment on above: Performed By: #### C BC ####[facility] Torjdqbqic[address] [place], [place] [address]Dr. Arnoldo Taylor Basophils/100 WBC (Bld) 0.1 % Critically low 0.2-2.0 [facility] Comment on above: Performed By: #### C BC ####[facility] Hztbgzbrgi0732[address] [place], [place] [address]Dr. Arnoldo Taylor EO # 0.1 103/ul Normal 0.0-0.7 [facility] Comment on above: Performed By: #### C BC ####[facility] Uuijevcnup[address] [place], [place] [address]Dr. Arnoldo Taylor Eosinophils/100 WBC (Bld) 1.2 % Normal 0.9-7.0 [facility] Comment on above: Performed By: #### C BC ####[facility] Yxbaxgiwjo9004[address] [place], [place] [address]Dr. Arnoldo Taylor Erythrocyte distribution width (RBC) [Ratio] 13.3 % Normal 11.0-15.0 [facility] Comment on above: Performed By: #### C BC ####[facility] Vguimivzau[address] [place], [place] [address]Dr. Arnoldo Taylor Hematocrit (Bld) [Volume fraction] 41.0 % Normal 36.0-48.0 [facility] Comment on above: Performed By: #### C BC ####[facility] Gpqcxkxioy7602 [place] [address]DrTye Taylor Hemoglobin (Bld) [Mass/Vol] 13.5 g/dL Normal 12.0-16.0 [facility] Comment on above: Performed By: #### C BC ####[facility] Zpsbbgfbvz4053 [place] [address]DrTye Taylor IG # 0.02 10e3/ul Normal 0.00-0.03 [facility] Comment on above: Performed By: #### C BC ####[facility] W[address]cwcmllf[address] [place], [place] [address]DrTye Taylor IG % 0.2 % Normal 0.0-0.5 [facility] Comment on above: Performed By: #### C BC ####[facility] Middeuseys96[address] [place], [place] [address]DrTye Taylor LYMPH # 4.4 103/ul Critically high 1.2-3.8 [facility] Comment on above: Performed By: #### C BC ####[facility] Bpiafmixvb[address] [place], [place] [address]DrTye Taylor Lymphocytes/100 WBC (Bld) 46.9 % Normal 20.5-60.0 [facility] Comment on above: Performed By: #### C BC ####[facility] Olhvdntzdg[address] [place], [place] [address]DrTye Taylor MANUAL DIFF REQ NO Normal [facility] Comment on above: Performed By: #### C BC ####[facility] Fskgzrxuxq0457 [place] [id number] Taylor MCH (RBC) [Entitic mass] 30.8 pg Normal 26.7-34.0 [facility] Comment on above: Performed By: #### C BC ####[facility] Xjfrxnvmid0633 [place] [id number] Taylor MCHC (RBC) [Mass/Vol] 32.9 g/dL Normal 29.9-35.2 [facility] Comment on above: Performed By: #### C BC ####[facility] Ufgimbajsv8938 [place] [address]DrTye Taylor MCV (RBC) [Entitic vol] 93.4 fL Normal 81.0-99.0 [facility] Comment on above: Performed By: #### C BC ####[facility] Gpixcfmdqd9554 [place] [address]DrTye Taylor MONO # 0.9 103/ul Critically high 0.3-0.8 [facility] Comment on above: Performed By: #### C BC ####[facility] Aerpkneadx3951 [place] [address]DrTye Taylor Monocytes/100 WBC (Bld) 9.6 % Normal 1.7-12.0 [facility] Comment on above: Performed By: #### C BC ####[facility] Vusvxoqaco19[address] [place], [place] [address]DrTye Taylor NEUT # 3.9 103/ul Normal 1.4-6.5 [facility] Comment on above: Performed By: #### C BC ####[facility] Rqhqfapefr[address] [place], [place] [address]DrTye Taylor Neutrophils/100 WBC (Bld) 42.0 % Critically low 43.0-75.0 [facility] Comment on above: Performed By: #### C BC ####[facility] Bwnksmjlrf6032[address] [place], [place] [address]DrTye Taylor Platelet mean volume (Bld) [Entitic vol] 10.2 fL Normal 9.5-13.5 [facility] Comment on above: Performed By: #### C BC ####[facility] Adfrmxknkb38[address] [place], [place] [address]DrTye Taylor PLT 199 103/ul Normal 150-450 [facility] Comment on above: Performed By: #### C BC ####[facility] Jqywnyrxek[address] [place], [place] [id number] Taylor RBC 4.39 106/ul Normal 4.20-5.40 [facility] Comment on above: Performed By: #### C BC ####[facility] Jmofkzdbdv8990 [place] [phone]. Arnoldo Taylor WBC 9.3 103/ul Normal 4.0-11.0 [facility] Comment on above: Performed By: #### C BC ####[facility] Kzihwgbbvh9530 [place] [id number]. Arnoldo Taylor CT HEAD WO CONon 01-06-2022 CT HEAD WO CON Normal [facility] CULTURE BLOODon 01-06-2022 Microscopic examination of blood, culture Culture Observations: NO GROWTH AT 5 DAYS. Normal [facility] Comment on above: Performed By: #### B LDCX2 ####[facility] Jvtprnamat9195 [place] [id number]. Arnoldo Tyalor Microscopic examination of blood, culture Culture Observations: NO GROWTH AT 5 DAYS. Normal [facility] Comment on above: Performed By: #### B LDCX1 ####[facility] Tzakhvczwh5171 [place] [id number]. Arnoldo Taylor CULTURE URINEon 01-06-2022 CULTURE URINE Culture Observations : NO GROWTH. Normal [facility] Comment on above: Performed By: #### U RCX ####[facility] Maqbrypump0244 [place] [id number]. Arnoldo Taylor Covid-19 PCR ([facility])on SARS-CoV-2 (COVID-19) RNA JAMMIE+probe Ql (Unsp spec) Not detected Normal NOT DETECTED [facility] Comment on above: Result Comment: When diagnostic [...] for this test is supported by the [place] of Health and Human Service's declaration that [...] longer be used). Performed By: #### C [facility]DROB[facility] ####[facility] Aggljxlkqx7[address] [place], [place] [address]Dr. Lynettesujata Brandon ER URINE PROFILEon 2 Bilirubin Ql (U) Negative Normal NEGATIVE [facility] Comment on above: Performed By: #### E RUR ####[facility] Oxyznzepxr3[address] [place], [place] [address]Dr. Lynettesujata Taylor Clarity (U) CLEAR Normal CLEAR [facility] Comment on above: Performed By: #### E RUR ####[facility] Pjuhlgcxdx[address] [place], [place] [address]Dr. Lynettelan Taylor Color (U) YELLOW Normal YELLOW [facility] Comment on above: Performed By: #### E RUR ####[facility] Ukvpyiptfm70[address] [place], [place] [address]Dr. Arnoldo Taylor ERUAHD A micrscopic examination will be performed if indicated. Normal [facility] Comment on above: Performed By: #### E RUR ####[facility] Swfhbhozes30[address] [place], [place] [address]Dr. Lynettelan Taylor Glucose Ql (U) Negative Normal NEGATIVE The [facility] Comment on above: Performed By: #### E RUR ####[facility] Nkexaqbxep3445[address] [place], [place] [address]Dr. Yilan Taylor Hemoglobin Ql (U) Negative Normal NEGATIVE [facility] Comment on above: Performed By: #### E RUR ####[facility] Ioctfqnrwa3375[address] [place], [place] [address]Dr. Lynettelan Taylor Ketones Ql (U) Negative Normal NEGATIVE [facility] Comment on above: Performed By: #### E RUR ####[facility] Skcbakfwot5[address] [place], [place] [address]Dr. Lynettelan Taylor LEUKOCYTES Negative Normal NEGATIVE [facility] Comment on above: Performed By: #### E RUR ####[facility] Bqncovlhmg2427 [place] [address]Dr. Arnoldo Taylor Nitrite Ql (U) Negative Normal NEGATIVE [facility] Comment on above: Performed By: #### E RUR ####[facility] Dvzaerxhsk[address] [place], [place] [id number]. Arnoldo Taylor pH (U) 7.5 [pH] Normal 5-9 [facility] Comment on above: Performed By: #### E RUR ####[facility] Zyjxbytbzg7[address] [place], [place] [address]Dr. Arnoldo Brandon SPEC GRAVITY 1.010 Normal 1.005-<=1.025 [facility] Comment on above: Performed By: #### E RUR ####[facility] Ddgerslasm[address] [place], [place] [address]Dr. Arnoldo Taylor UA PROTEIN Negative Normal NEGATIVE/ TRACE [facility] Comment on above: Performed By: #### E RUR ####[facility] Dlfgogecfi264[address] [place], [place] [address]Dr. Lynettesujata Taylor UR MICRO IND NOT INDICATED Normal [facility] Comment on above: Performed By: #### E RUR ####[facility] Mcimvcyoig86[address] [place], [place] [address]Dr. Arnoldo Brandon Urobilinogen Qn (U) 0.2 {Adrienne'U}/dL Normal 0.2 - 1. 0 [facility] Comment on above: Performed By: #### E RUR ####[facility] Uwqruplyyk25[address] [place], [place] [address]Dr. Arnoldo Brandon LACTATE/LACTIC ACIDon 2021 Lactate [Moles/Vol] 1.6 mmol/L Normal 0.4-1.9 [facility] Comment on above: Performed By: #### L ACT ####[facility] Yxpuhenncb[address] [place], [place] [address]Dr. Arnoldo Brandon LIPASEon 01-06-2022 Lipase [Catalytic activity/Vol] 85.0 U/L Normal 73.0-393.0 [facility] Comment on above: Performed By: #### B COMMUNICATION SKILLS INSTRUCTOR, LIPA, CMP, HSTROPN ####[facility] Mcczemqvaj37[address] [place] [address]Dr. Arnoldo Taylor PROF 14(COMP METB)on 022 Albumin [Mass/Vol] 3.2 g/dL Critically low 3.4-5.0 [facility] Comment on above: Performed By: #### B COMMUNICATION SKILLS INSTRUCTOR, LIPA, CMP, HSTROPN ####[facility] Wnytjzmhme5885 [place] [address]Dr. Arnoldo Taylor Albumin/Globulin [Mass ratio] 0.7 {ratio} Normal [facility] Comment on above: Performed By: #### B COMMUNICATION SKILLS INSTRUCTOR, LIPA, CMP, HSTROPN ####[facility] Pddqreagwc1771 [place] [address]Dr. Arnoldo Taylor ALP [Catalytic activity/Vol] 188 U/L Critically high 46-116 [facility] Comment on above: Performed By: #### B COMMUNICATION SKILLS INSTRUCTOR, LIPA, CMP, HSTROPN ####[facility] Qatpxzctju230[address] [place], [place] [address]Dr. Arnoldo Taylor ALT [Catalytic activity/Vol] 16 U/L Normal 14-59 [facility] Comment on above: Performed By: #### B COMMUNICATION SKILLS INSTRUCTOR, LIPA, CMP, HSTROPN ####[facility] Ilhjtpmvrr0536 [place] [address]Dr. Arnoldo Taylor Anion gap [Moles/Vol] 13.5 mmol/L Normal [facility] Comment on above: Performed By: #### B COMMUNICATION SKILLS INSTRUCTOR, LIPA, CMP, HSTROPN ####[facility] Ltljvvyuzj5218 [place] [address]Dr. Arnoldo Taylor AST [Catalytic activity/Vol] 20 U/L Normal 15-37 [facility] Comment on above: Performed By: #### B COMMUNICATION SKILLS INSTRUCTOR, LIPA, CMP, HSTROPN ####[facility] Qlywfnjcpu6866 [place] [address]Dr. Arnoldo Taylor Bilirubin [Mass/Vol] 0.7 mg/dL Normal 0.2-1.0 [facility] Comment on above: Performed By: #### B COMMUNICATION SKILLS INSTRUCTOR, LIPA, CMP, HSTROPN ####[facility] Ehawpbrnze14[address] [place], [place] [address]Dr. Arnoldo Taylor Calcium [Mass/Vol] 9.6 mg/dL Normal 8.5-10.1 [facility] Comment on above: Performed By: #### B COMMUNICATION SKILLS INSTRUCTOR, LIPA, CMP, HSTROPN ####[facility] Qzkmmxftwf9[address] [place], [place] [address]Dr. Arnoldo Taylor Chloride [Moles/Vol] 103 mmol/L Normal 98-107 [facility] Comment on above: Performed By: #### B COMMUNICATION SKILLS INSTRUCTOR, LIPA, CMP, HSTROPN ####[facility] Sxktcqsttm[address] [place], [place] [address]Dr. Arnoldo Taylor CO2 [Moles/Vol] 24.9 mmol/L Normal 21.0-32.0 [facility] Comment on above: Performed By: #### B COMMUNICATION SKILLS INSTRUCTOR, LIPA, CMP, HSTROPN ####[facility] Raxdjoeaqi[address] [place], [place] [address]Dr. Arnoldo Taylor Creatinine [Mass/Vol] 1.20 mg/dL Critically high 0.55-1.02 [facility] Comment on above: Performed By: #### B COMMUNICATION SKILLS INSTRUCTOR, LIPA, CMP, HSTROPN ####[facility] Ioqjrklict7[address] [place], [place] [address]Dr. Arnoldo Taylor EGFR-AF LIBYAN 53 mL/min/1.73m2 Critically low >=60 [facility] Comment on above: Performed By: #### B COMMUNICATION SKILLS INSTRUCTOR, LIPA, CMP, HSTROPN ####[facility] Ckrreniwpx[address] [place], [place] [address]Dr. Arnoldo Taylor EGFR-NON AF LIBYAN 43 mL/min/1.73m2 Critically low >=60 [facility] Comment on above: Performed By: #### B COMMUNICATION SKILLS INSTRUCTOR, LIPA, CMP, HSTROPN ####[facility] Qvgngrptjn059[address] [place], [place] [address]Dr. Arnoldo Taylor Globulin (S) [Mass/Vol] 4.3 g/dL Normal [facility] Comment on above: Performed By: #### B COMMUNICATION SKILLS INSTRUCTOR, LIPA, CMP, HSTROPN ####[facility] Svzjqlrxek9734 [place] [address]Dr. Arnoldo Taylor Glucose [Mass/Vol] 96 mg/dL Normal 74-106 [facility] Comment on above: Performed By: #### B COMMUNICATION SKILLS INSTRUCTOR, LIPA, CMP, HSTROPN ####[facility] Uizzvebzbb0772 [place] [address]Dr. Arnoldo Taylor Potassium [Moles/Vol] 3.4 mmol/L Critically low 3.5-5.1 [facility] Comment on above: Performed By: #### B COMMUNICATION SKILLS INSTRUCTOR, LIPA, CMP, HSTROPN ####[facility] Cgtqptliod8091 [place] [address]Dr. Arnoldo Taylor Protein [Mass/Vol] 7.5 g/dL Normal 6.4-8.2 [facility] Comment on above: Performed By: #### B COMMUNICATION SKILLS INSTRUCTOR, LIPA, CMP, HSTROPN ####[facility] Plknmnbnrp0393 [place] [address]Dr. Arnoldo Taylor Sodium [Moles/Vol] 138 mmol/L Normal 136-145 [facility] Comment on above: Performed By: #### B COMMUNICATION SKILLS INSTRUCTOR, LIPA, CMP, HSTROPN ####[facility] Djvcbfjibi2639 [place] [address]Dr. Arnoldo Taylor Urea nitrogen [Mass/Vol] 35.0 mg/dL Critically high 7.0-18.0 [facility] Comment on above: Performed By: #### B COMMUNICATION SKILLS INSTRUCTOR, LIPA, CMP, HSTROPN ####[facility] Tsbdpfrqfk7836 [place] [address]Dr. Arnoldo Taylor Urea nitrogen/Creatinine [Mass ratio] 29.2 mg/mg Normal [facility] Comment on above: Performed By: #### B COMMUNICATION SKILLS INSTRUCTOR, LIPA, CMP, HSTROPN ####[facility] Lmbnrwpoyt9620 [place], [place] [address]Wb. Arnoldo Taylor TROPONIN, HIGH SENSITIVITYon 01-06-2022 HSTROP 8.4 pg/mL Normal 4.0-51.3 [facility] Comment on above: Result Comment: CUT- OFF POINTS HAVE BEEN ESTABLISHED BASED ON THE FOURTH UNIVERSAL DEFINITIONS OF MYOCARDIALINFARCTION. THE UPPER REFERENCE LIMIT (URL) OF TROPONIN, DEFINED THE 99TH PERCENTILE OFcTnI DISTRIBUTION IN A REFERENCE POPULATION, HAS BEEN CONFIRMED THE DECISION THRESHOLDFOR GA DIAGNOSIS. Performed By: #### B COMMUNICATION SKILLS INSTRUCTOR, LIPA, CMP, HSTROPN ####[facility] Zswksdzwvc2409 [place], [place] [address]Eb. Arnoldo Taylor XR ABD FLAT UP_PA Byron 01-06 XR ABD FLAT UP_PA CH Normal [facility] HIP LEFT 1 OR 2 VWS WITH PEL VISon 12-24-2021 HIP LEFT 1 OR 2 VWS WITH PELVIS [facility] Department of Radiology [address] [place] [id number] ======== Patient Name: MYRANDA YANES : [...] report. Electronically signed: Remy Montalvo. Transcribed by: [email or web address], User Resident: ROCHELLE GARNETT Electronically Signed by: REMY MONTALVO @ 12/24/2021 02:40 PM I personally read this/these film(s) with this resident Normal The [facility] Comment on above: Order Comment: Crite brittaney for reflexing a culture was not met. Please call the lab at [phone] within 24 hours of collection time if culture is needed TIBIA FIBULA LEFTon 12-25-19 22 TIBIA FIBULA LEFT [facility] Department of Radiology [address] [place] [phone] ======== Patient Name: MYRANDA YANES : [...] report. Electronically signed: Tomasa Glass. Transcribed by: [email or web address], User Resident: ROCHELLE GARNETT Electronically Signed by: TOMASA GLASS @ 12/25/2021 03:33 PM I personally read this/these film(s) with this resident Normal The [facility] Comment on above: Order Comment: Evalu ate BASIC METABOLIC PANELon 07-3 Calcium [Mass/Vol] 8.1 mg/dL Low 8.6-10.3 The [facility] Comment on above: Order Comment: Hemog lobin < 9 gm/dl with known cardiac or cerebrovascular disease Performed By: #### 8 6002 #### [facility] [address] [place] [address], [facility] Chloride [Moles/Vol] 101 mmol/L Normal 98-107 The [facility] Comment on above: Order Comment: Hemog lobin < 9 gm/dl with known cardiac or cerebrovascular disease Performed By: #### 8 6002 #### [facility] [address] [place] [address], [facility] CO2 [Moles/Vol] 28 mmol/L Normal 21-31 [facility] Comment on above: Order Comment: Hemog lobin < 9 gm/dl with known cardiac or cerebrovascular disease Performed By: #### 8 6002 #### [facility] [address] [facility] [place] [address], [facility] Creatinine [Mass/Vol] 0.76 mg/dL Normal 0.60-1.20 [facility] Comment on above: Order Comment: Hemog lobin < 9 gm/dl with known cardiac or cerebrovascular disease Performed By: #### 8 6002 #### [facility] [address] [facility] [place] [place] [address], [facility] GFR/1.73 sq M.predicted among non-blacks MDRD (S/P/Bld) [Vol rate/Area] mL/min/{1.73_m2} Normal >60 [facility] Comment on above: Order Comment: Hemog lobin < 9 gm/dl with known cardiac or cerebrovascular disease Result Comment: The [facility]'s estimated glomerular filtration rate (eGFR) will no [...] individuals. Performed By: #### 8 6002 #### [facility] [address] [facility] [place] [id number], [facility] Glucose [Mass/Vol] 83 mg/dL Normal 70-100 [facility] Comment on above: Order Comment: Hemog lobin < 9 gm/dl with known cardiac or cerebrovascular disease Performed By: #### 8 6002 #### [facility] [address] [place] [address], [place] Potassium [Moles/Vol] 4.1 mmol/L Normal 3.5-5.1 The [facility] Comment on above: Order Comment: Hemog lobin < 9 gm/dl with known cardiac or cerebrovascular disease Performed By: #### 8 6002 #### [facility] [address] [place] [address], [place] Sodium [Moles/Vol] 136 mmol/L Normal 136-145 [facility] Comment on above: Order Comment: Hemog lobin < 9 gm/dl with known cardiac or cerebrovascular disease Performed By: #### 8 6002 #### [facility] [address] [place] [address], [place] Urea nitrogen [Mass/Vol] 21 mg/dL Normal 7-25 The [facility] Comment on above: Order Comment: Hemog lobin < 9 gm/dl with known cardiac or cerebrovascular disease Performed By: #### 8 6002 #### [facility] [address] [place] [address], [facility] CBC COMPLETE BLOOD COUNTon 0 11-28-2021 Erythrocyte distribution width (RBC) [Ratio] 13.5 % Normal 11.5-15.0 The [facility] Comment on above: Order Comment: No: D o not add to previous draw Performed By: #### 5 0608 #### [facility] [address] [place] [address], [facility] Hematocrit (Bld) [Volume fraction] 24.3 % Low 36.0-45.0 The [facility] Comment on above: Order Comment: No: D o not add to previous draw Performed By: #### 5 0608 #### [facility] [address] [place] [address], [facility] Hemoglobin (Bld) [Mass/Vol] 7.7 g/dL Low 12.0-15.0 The [facility] Comment on above: Order Comment: No: D o not add to previous draw Performed By: #### 5 0608 #### [facility] [address] MCH (RBC) [Entitic mass] 30.9 pg Normal 27.0-33.0 The [facility] Comment on above: Order Comment: No: D o not add to previous draw Performed By: #### 5 0608 #### [facility] [address] MCHC (RBC) [Mass/Vol] 31.7 g/dL Low 32.0-35.0 The [facility] Comment on above: Order Comment: No: D o not add to previous draw Performed By: #### 5 0608 #### [facility] [address] MCV (RBC) [Entitic vol] 97.6 fL Normal 82.0-98.0 The [facility] Comment on above: Order Comment: No: D o not add to previous draw Performed By: #### 5 0608 #### [facility] [address] [facility]. [address] Nucleated RBC/100 WBC (Bld) [Ratio] 0 % Normal 0-0 The [facility] Comment on above: Order Comment: No: D o not add to previous draw Performed By: #### 5 0608 #### [facility] [address] [facility] [place] [place] [address], [facility] PLAT CNT 171 10*3/uL Normal 150-400 The [facility] Comment on above: Order Comment: No: D o not add to previous draw Performed By: #### 5 0608 #### [facility] [facility] [address] [facility] [place] [address], [facility] RBC (Bld) [#/Vol] 2.49 10*6/uL Low 3.80-5.[address] [facility] Comment on above: Order Comment: No: D o not add to previous draw Performed By: #### 5 0608 #### [facility] [address] [place] [address], [facility] WBC (Bld) [#/Vol] 6.96 10*3/uL Normal 4.00-10.60 [facility] Comment on above: Order Comment: No: D o not add to previous draw Performed By: #### 5 0608 #### [facility] [address] [place] [address], [facility] BASIC METABOLIC PANELon 07- Calcium [Mass/Vol] 8.2 mg/dL Low 8.6-10.3 [facility] Comment on above: Order Comment: No: D o not add to previous draw Performed By: #### 0 0071, [id number] ####[facility] [place] [address], [facility] Chloride [Moles/Vol] 101 mmol/L Normal 98-107 [facility] Comment on above: Order Comment: No: D o not add to previous draw Performed By: #### 0 0071, 01473 ####[facility] [facility] [place] [address], [facility] CO2 [Moles/Vol] 29 mmol/L Normal 21-31 The [facility] Comment on above: Order Comment: No: D o not add to previous draw Performed By: #### 0 0071, 28424 ####[facility] [place] [address], [facility] Creatinine [Mass/Vol] 0.79 mg/dL Normal 0.60-1.20 The [facility] Comment on above: Order Comment: No: D o not add to previous draw Performed By: #### 0 0071, 85961 ####[facility] [place] [address], [facility] GFR/1.73 sq M.predicted among non-blacks MDRD (S/P/Bld) [Vol rate/Area] mL/min/{1.73_m2} Normal >60 The [facility] Comment on above: Order Comment: No: D o not add to previous draw Result Comment: The [facility]'s estimated glomerular filtration rate (eGFR) will no [...] of individuals. Performed By: #### 0 0071, [id number] ####[facility] [facility] [place] [address], [facility] Glucose [Mass/Vol] 100 mg/dL Normal 70-100 The [facility] Comment on above: Order Comment: No: D o not add to previous draw Performed By: #### 0 0071, 87612 ####[facility] [facility] [place] [address], [facility] Potassium [Moles/Vol] 4.7 mmol/L Normal 3.5-5.1 The [facility] Comment on above: Order Comment: No: D o not add to previous draw Performed By: #### 0 0071, 59932 ####[facility] [facility] [place] [address], [facility] Sodium [Moles/Vol] 137 mmol/L Normal 136-145 The [facility] Comment on above: Order Comment: No: D o not add to previous draw Performed By: #### 0 0071, 20579 ####[facility] [facility] [place] [address], [facility] Urea nitrogen [Mass/Vol] 21 mg/dL Normal 7-25 The [facility] Comment on above: Order Comment: No: D o not add to previous draw Performed By: #### 0 0071, 91644 ####[facility] [facility] [place].[address] CBC COMPLETE BLOOD COUNTon 0 11-27-2021 Erythrocyte distribution width (RBC) [Ratio] 13.3 % Normal 11.5-15.0 The [facility] Comment on above: Order Comment: No: D o not add to previous draw Performed By: #### 5 0608 #### [facility] [address] [place] [address], [facility] Hematocrit (Bld) [Volume fraction] 25.2 % Low 36.0-45.0 The [facility] Comment on above: Order Comment: No: D o not add to previous draw Performed By: #### 5 0608 #### [facility] [address] Hemoglobin (Bld) [Mass/Vol] 7.9 g/dL Low 12.0-15.0 The [facility] Comment on above: Order Comment: No: D o not add to previous draw Performed By: #### 5 0608 #### [facility] [address] [facility] [place] [address], [facility] MCH (RBC) [Entitic mass] 30.6 pg Normal 27.0-33.0 The [facility] Comment on above: Order Comment: No: D o not add to previous draw Performed By: #### 5 0608 #### [facility] [address] [place] [address], [facility] MCHC (RBC) [Mass/Vol] 31.3 g/dL Low 32.0-35.0 The [facility] Comment on above: Order Comment: No: D o not add to previous draw Performed By: #### 5 0608 #### [facility] [address] [place] [address], [facility] MCV (RBC) [Entitic vol] 97.7 fL Normal 82.0-98.0 The [facility] Comment on above: Order Comment: No: D o not add to previous draw Performed By: #### 5 0608 #### [facility] [address] [facility]. [address] Nucleated RBC/100 WBC (Bld) [Ratio] 0 % Normal 0-0 The [facility] Comment on above: Order Comment: No: D o not add to previous draw Performed By: #### 5 0608 #### [facility] [address] [facility] [place] [address], [facility] PLAT CNT 179 10*3/uL Normal 150-400 The [facility] Comment on above: Order Comment: No: D o not add to previous draw Performed By: #### 5 0608 #### [facility] [address] [facility] [place] [address], [facility] RBC (Bld) [#/Vol] 2.58 10*6/uL Low 3.80-5.[address] [facility] Comment on above: Order Comment: No: D o not add to previous draw Performed By: #### 5 0608 #### [facility] [address] [facility] [place] [address], [facility] WBC (Bld) [#/Vol] 7.89 10*3/uL Normal 4.00-10.[address] [facility] Comment on above: Order Comment: No: D o not add to previous draw Performed By: #### 5 0608 #### [facility] [address] [facility]. [address] PHOSPHORUS BLOODon Phosphate [Mass/Vol] 3.2 mg/dL Normal 2.5-5.0 The [facility] Comment on above: Order Comment: No: D o not add to previous draw Performed By: #### 0 0071, 55117 ####[facility] [facility] BASIC METABOLIC PANELon - Calcium [Mass/Vol] 7.6 mg/dL Low 8.6-10.3 [facility] Comment on above: Order Comment: Hemog lobin < 9 gm/dl with known cardiac or cerebrovascular disease Performed By: #### 8 6002 #### [facility] [address] [place] [address], [facility] Chloride [Moles/Vol] 104 mmol/L Normal 98-107 The [facility] Comment on above: Order Comment: Hemog lobin < 9 gm/dl with known cardiac or cerebrovascular disease Performed By: #### 8 6002 #### [facility] [address] [place] [address], [place] CO2 [Moles/Vol] 24 mmol/L Normal 21-31 [facility] Comment on above: Order Comment: Hemog lobin < 9 gm/dl with known cardiac or cerebrovascular disease Performed By: #### 8 6002 #### [facility] [address] [place] [address], [facility] Creatinine [Mass/Vol] 0.76 mg/dL Normal 0.60-1.20 The [facility] Comment on above: Order Comment: Hemog lobin < 9 gm/dl with known cardiac or cerebrovascular disease Performed By: #### 8 6002 #### [facility] [address] [place] [address], [facility] GFR/1.73 sq M.predicted among non-blacks MDRD (S/P/Bld) [Vol rate/Area] mL/min/{1.73_m2} Normal >60 The [facility] Comment on above: Order Comment: Hemog lobin < 9 gm/dl with known cardiac or cerebrovascular disease Result Comment: The [facility]'s estimated glomerular filtration rate (eGFR) will no [...] individuals. Performed By: #### 8 6002 #### [facility] [address] [place] [id number], [facility] Glucose [Mass/Vol] 100 mg/dL Normal 70-100 The [facility] Comment on above: Order Comment: Hemog lobin < 9 gm/dl with known cardiac or cerebrovascular disease Performed By: #### 8 6002 #### [facility] [address] [place] [address], [facility] Potassium [Moles/Vol] 4.5 mmol/L Normal 3.5-5.1 The [facility] Comment on above: Order Comment: Hemog lobin < 9 gm/dl with known cardiac or cerebrovascular disease Performed By: #### 8 6002 #### [facility] [address] [place] [address], [facility] Sodium [Moles/Vol] 136 mmol/L Normal 136-145 The [facility] Comment on above: Order Comment: Hemog lobin < 9 gm/dl with known cardiac or cerebrovascular disease Performed By: #### 8 6002 #### [facility] [address] [place] [id number], [facility] Urea nitrogen [Mass/Vol] 18 mg/dL Normal 7-25 The [facility] Comment on above: Order Comment: Hemog lobin < 9 gm/dl with known cardiac or cerebrovascular disease Performed By: #### 8 6002 #### [facility] [address] [place] [address], [facility] CBC COMPLETE BLOOD COUNTon 0 7- Hematocrit (Bld) [Volume fraction] 23.0 % Low 36.0-45.0 The [facility] Comment on above: Order Comment: No: D o not add to previous draw Performed By: #### 5 0608 #### [facility] [address] [place] [id number], [facility] Hemoglobin (Bld) [Mass/Vol] 7.3 g/dL Low 12.0-15.0 The [facility] Comment on above: Order Comment: No: D o not add to previous draw Performed By: #### 5 0608 #### [facility] [address] [place] [id number], [facility] MCH (RBC) [Entitic mass] 30.7 pg Normal 27.0-33.0 The [facility] Comment on above: Order Comment: No: D o not add to previous draw Performed By: #### 5 0608 #### [facility] [address] [place] [address], [facility] MCHC (RBC) [Mass/Vol] 31.7 g/dL Low 32.0-35.0 The [facility] Comment on above: Order Comment: No: D o not add to previous draw Performed By: #### 5 0608 #### [facility] [address] [place] [id number], [facility] MCV (RBC) [Entitic vol] 96.6 fL Normal 82.0-98.0 The [facility] Comment on above: Order Comment: No: D o not add to previous draw Performed By: #### 5 0608 #### [facility] [address] [place] [id number], [place] PLAT CNT 144 10*3/uL Low 150-400 The [facility] Comment on above: Order Comment: No: D o not add to previous draw Performed By: #### 5 0608 #### [facility] [address] [place] [id number], [place] RBC (Bld) [#/Vol] 2.38 10*6/uL Low 3.80-5.[address] [facility] Comment on above: Order Comment: No: D o not add to previous draw Performed By: #### 5 0608 #### [facility] [address] [place] [address], [place] WBC (Bld) [#/Vol] 8.38 10*3/uL Normal 4.00-10.[address] [facility] Comment on above: Order Comment: No: D o not add to previous draw Performed By: #### 5 0608 #### [facility] [address] [place] [address], [facility] Erythrocyte distribution width (RBC) [Ratio] 13.4 % Normal 11.5-15.0 The [facility] Comment on above: Order Comment: No: D o not add to previous draw Performed By: #### 5 0608 #### [facility] [address] [place] [address], [facility] Nucleated RBC/100 WBC (Bld) [Ratio] 0 % Normal 0-0 The [facility] Comment on above: Order Comment: No: D o not add to previous draw Performed By: #### 5 0608 #### [facility] [address] [facility] [place] [address], [facility] CBC W/DIFFon 11-26-2021 ABS IMM GRANS 0.0 10*3/uL Normal 0.0-0.2 The [facility] Comment on above: Order Comment: No: D o not add to previous draw Performed By: #### 5 0608 #### [facility] [address] [facility] [place] [address], [facility] ABS NEUTROPHILS 4.4 10*3/uL Normal 1.6-7.6 The [facility] Comment on above: Order Comment: No: D o not add to previous draw Performed By: #### 5 0608 #### [facility] [address] [place] [address], [facility] Basophils (Bld) [#/Vol] 0.0 10*3/uL Normal 0.0-0.2 The [facility] Comment on above: Order Comment: No: D o not add to previous draw Performed By: #### 5 0608 #### [facility] [address] [place] [address], [facility] Basophils/100 WBC (Bld) 0.2 % Normal 0.0-1.0 The [facility] Comment on above: Order Comment: No: D o not add to previous draw Performed By: #### 5 0608 #### [facility] [address] [place] [address], [facility] Eosinophils (Bld) [#/Vol] 0.2 10*3/uL Normal 0.0-0.5 The [facility] Comment on above: Order Comment: No: D o not add to previous draw Performed By: #### 5 0608 #### [facility] [address] [place] [address], [facility] Eosinophils/100 WBC (Bld) 1.8 % Normal 0.0-6.0 The [facility] Comment on above: Order Comment: No: D o not add to previous draw Performed By: #### 5 0608 #### [facility] [address] [facility] [place] [address], [facility] Hematocrit (Bld) [Volume fraction] 23.3 % Low 36.0-45.0 [facility] Comment on above: Order Comment: No: D o not add to previous draw Performed By: #### 5 0608 #### [facility] [address] [place] [address], [facility] Hemoglobin (Bld) [Mass/Vol] 7.6 g/dL Low 12.0-15.0 The [facility] Comment on above: Order Comment: No: D o not add to previous draw Performed By: #### 5 0608 #### [facility] [address] [place] [address], [facility] IMM PLATELET FRAC 1.8 % Normal 0.8-6.[address] [facility] Comment on above: Order Comment: No: D o not add to previous draw Performed By: #### 5 0608 #### [facility] [address] [place] [address], [facility] IMMATURE GRANS 0.5 % Normal 0.0-1.0 The [facility] Comment on above: Order Comment: No: D o not add to previous draw Performed By: #### 5 0608 #### [facility] [address] [place] [address], [facility] Lymphocytes (Bld) [#/Vol] 2.9 10*3/uL Normal 1.2-4.0 The [facility] Comment on above: Order Comment: No: D o not add to previous draw Performed By: #### 5 0608 #### [facility] [address] [place] [address], [facility] Lymphocytes/100 WBC (Bld) 33.7 % Normal 20.0-45.0 The [facility] Comment on above: Order Comment: No: D o not add to previous draw Performed By: #### 5 0608 #### [facility] [address] [facility] [place] [address], [facility] MCH (RBC) [Entitic mass] 31.7 pg Normal 27.0-33.0 The [facility] Comment on above: Order Comment: No: D o not add to previous draw Performed By: #### 5 0608 #### [facility] [address] [place] [address], [facility] MCHC (RBC) [Mass/Vol] 32.6 g/dL Normal 32.0-35.0 The [facility] Comment on above: Order Comment: No: D o not add to previous draw Performed By: #### 5 0608 #### [facility] [address] [place] [id number], [facility] MCV (RBC) [Entitic vol] 97.1 fL Normal 82.0-98.0 The [facility] Comment on above: Order Comment: No: D o not add to previous draw Performed By: #### 5 0608 #### [facility] [address] [place] [address], [facility] Monocytes (Bld) [#/Vol] 1.1 10*3/uL High 0.1-1.0 The [facility] Comment on above: Order Comment: No: D o not add to previous draw Performed By: #### 5 0608 #### [facility] [address] [place] [address], [facility] MONOS 12.9 % High 5.0-12.0 The [facility] Comment on above: Order Comment: No: D o not add to previous draw Performed By: #### 5 0608 #### [facility] [address] [place] [address], [facility] Neutrophils/100 WBC (Bld) 50.9 % Normal 40.0-72.0 The [facility] Comment on above: Order Comment: No: D o not add to previous draw Performed By: #### 5 0608 #### [facility] [address] [facility] [place] [address], [facility] PLAT CNT 143 10*3/uL Low 150-400 The [facility] Comment on above: Order Comment: No: D o not add to previous draw Result Comment: RESU LTS CHECKED Performed By: #### 5 0608 #### [facility] [address] [facility] [place] [address], [facility] RBC (Bld) [#/Vol] 2.40 10*6/uL Low 3.80-5.[address] [facility] Comment on above: Order Comment: No: D o not add to previous draw Performed By: #### 5 0608 #### [facility] [address] [place] [id number], [facility] WBC (Bld) [#/Vol] 8.54 10*3/uL Normal 4.00-10.[address] [facility] Comment on above: Order Comment: No: D o not add to previous draw Performed By: #### 5 0608 #### [facility] [address] [place] [address], [facility] MAGNESIUM BLOODon 11-26-2021 Magnesium [Mass/Vol] 1.9 mg/dL Normal 1.9-2.7 The [facility] Comment on above: Order Comment: No: D o not add to previous draw Performed By: #### 5 0608 #### [facility] [address] [place] [address], [facility] PHOSPHORUS BLOODon Phosphate [Mass/Vol] 2.3 mg/dL Low 2.5-5.0 The [facility] Comment on above: Order Comment: No: D o not add to previous draw Performed By: #### 5 0608 #### [facility] [address] [place] [address], [facility] BASIC METABOLIC PANELon 10-31 Calcium [Mass/Vol] 7.7 mg/dL Low 8.6-10.3 [facility] Comment on above: Order Comment: Evalu ate Performed By: #### 4 1000, 00468, 00191 ####[facility] [place] [address], [facility] Chloride [Moles/Vol] 104 mmol/L Normal 98-107 The [facility] Comment on above: Order Comment: Evalu ate Performed By: #### 4 1000, 11375, 10239 ####[facility] [place] [address], [place] CO2 [Moles/Vol] 27 mmol/L Normal 21-31 The [facility] Comment on above: Order Comment: Evalu ate Performed By: #### 4 1000, 44186, 97410 ####[facility] [place] [address], [facility] Creatinine [Mass/Vol] 0.85 mg/dL Normal 0.60-1.20 The [facility] Comment on above: Order Comment: Evalu ate Performed By: #### 4 1000, 07987, 46770 ####[facility] [place] [address], [facility] GFR/1.73 sq M.predicted among non-blacks MDRD (S/P/Bld) [Vol rate/Area] mL/min/{1.73_m2} Normal >60 The [facility] Comment on above: Order Comment: Evalu ate Result Comment: The [facility]'s estimated glomerular filtration rate (eGFR) will no [...] of individuals. Performed By: #### 4 999, 74202, 49211 ####[facility] [facility] [place] [address], [facility] Glucose [Mass/Vol] 109 mg/dL High 70-100 The [facility] Comment on above: Order Comment: Evalu ate Performed By: #### 4 999, 28331, 92075 ####[facility] [facility] [place] [address], [facility] Potassium [Moles/Vol] 4.1 mmol/L Normal 3.5-5.1 The [facility] Comment on above: Order Comment: Evalu ate Performed By: #### 4 999, 63383, 45292 ####[facility] [facility] [place] [address], [facility] Sodium [Moles/Vol] 137 mmol/L Normal 136-145 The [facility] Comment on above: Order Comment: Evalu ate Performed By: #### 4 1000, 71859, 40729 ####[facility] [facility] [place] [address], [facility] Urea nitrogen [Mass/Vol] 22 mg/dL Normal 7-25 The [facility] Comment on above: Order Comment: Evalu ate Performed By: #### 4 1000, 20135, 82128 ####[facility] [place] [address], [facility] CBC W/DIFFon 11-25-2021 ABS IMM GRANS 0.0 10*3/uL Normal 0.0-0.2 The [facility] Comment on above: Order Comment: No: D o not add to previous draw Performed By: #### 5 0608 #### [facility] [address] [place] [address], [facility] ABS NEUTROPHILS 5.7 10*3/uL Normal 1.6-7.6 The [facility] Comment on above: Order Comment: No: D o not add to previous draw Performed By: #### 5 0608 #### [facility] [address] [place] [address], [facility] Basophils (Bld) [#/Vol] 0.0 10*3/uL Normal 0.0-0.2 The [facility] Comment on above: Order Comment: No: D o not add to previous draw Performed By: #### 5 0608 #### [facility] [address] [place] [address], [facility] Basophils/100 WBC (Bld) 0.1 % Normal 0.0-1.0 The [facility] Comment on above: Order Comment: No: D o not add to previous draw Performed By: #### 5 0608 #### [facility] [address] [facility] [place] [address], [facility] Eosinophils (Bld) [#/Vol] 0.2 10*3/uL Normal 0.0-0.5 The [facility] Comment on above: Order Comment: No: D o not add to previous draw Performed By: #### 5 0608 #### [facility] [address] [place] [address], [facility] Eosinophils/100 WBC (Bld) 2.4 % Normal 0.0-6.0 The [facility] Comment on above: Order Comment: No: D o not add to previous draw Performed By: #### 5 0608 #### [facility] [address] [facility] [place] [address], [facility] Erythrocyte distribution width (RBC) [Ratio] 13.4 % Normal 11.5-15.0 The [facility] Comment on above: Order Comment: No: D o not add to previous draw Performed By: #### 5 0608 #### [facility] [address] [facility] [place] [address], [facility] Hematocrit (Bld) [Volume fraction] 23.2 % Low 36.0-45.0 The [facility] Comment on above: Order Comment: No: D o not add to previous draw Performed By: #### 5 0608 #### [facility] [address] [place] [address], [facility] Hemoglobin (Bld) [Mass/Vol] 7.4 g/dL Low 12.0-15.0 The [facility] Comment on above: Order Comment: No: D o not add to previous draw Performed By: #### 5 0608 #### [facility] [address] [facility] [place] [address], [facility] IMMATURE GRANS 0.4 % Normal 0.0-1.0 The [facility] Comment on above: Order Comment: No: D o not add to previous draw Performed By: #### 5 0608 #### [facility] [address] [facility] [place] [address], [facility] Lymphocytes (Bld) [#/Vol] 2.2 10*3/uL Normal 1.2-4.0 The [facility] Comment on above: Order Comment: No: D o not add to previous draw Performed By: #### 5 0608 #### [facility] [address] [place] [address], [facility] Lymphocytes/100 WBC (Bld) 23.2 % Normal 20.0-45.0 The [facility] Comment on above: Order Comment: No: D o not add to previous draw Performed By: #### 5 0608 #### [facility] [address] [place] [address], [facility] MCH (RBC) [Entitic mass] 30.7 pg Normal 27.0-33.0 The [facility] Comment on above: Order Comment: No: D o not add to previous draw Performed By: #### 5 0608 #### [facility] [address] [facility] [place] [address], [facility] MCHC (RBC) [Mass/Vol] 31.9 g/dL Low 32.0-35.0 The [facility] Comment on above: Order Comment: No: D o not add to previous draw Performed By: #### 5 0608 #### [facility] [address] [facility] [place] [address], [facility] MCV (RBC) [Entitic vol] 96.3 fL Normal 82.0-98.0 The [facility] Comment on above: Order Comment: No: D o not add to previous draw Performed By: #### 5 0608 #### [facility] [address] [place] [address], [facility] Monocytes (Bld) [#/Vol] 1.2 10*3/uL High 0.1-1.0 The [facility] Comment on above: Order Comment: No: D o not add to previous draw Performed By: #### 5 0608 #### [facility] [address] [facility] [place] [address], [facility] MONOS 12.8 % High 5.0-12.0 The [facility] Comment on above: Order Comment: No: D o not add to previous draw Performed By: #### 5 0608 #### [facility] [address] [facility] [place] [place] [address], [facility] Neutrophils/100 WBC (Bld) 61.1 % Normal 40.0-72.0 The [facility] Comment on above: Order Comment: No: D o not add to previous draw Performed By: #### 5 0608 #### [facility] [address] [place] [address], [facility] Nucleated RBC/100 WBC (Bld) [Ratio] 0 % Normal 0-0 The [facility] Comment on above: Order Comment: No: D o not add to previous draw Performed By: #### 5 0608 #### [facility] [address] [place] [address], [facility] PLAT CNT 145 10*3/uL Low 150-400 The [facility] Comment on above: Order Comment: No: D o not add to previous draw Performed By: #### 5 0608 #### [facility] [address] [facility] [place] [address], [facility] RBC (Bld) [#/Vol] 2.41 10*6/uL Low 3.80-5.[address] [facility] Comment on above: Order Comment: No: D o not add to previous draw Performed By: #### 5 0608 #### [facility] [address] [facility] [place] [address], [facility] WBC (Bld) [#/Vol] 9.31 10*3/uL Normal 4.00-10.[address] [facility] Comment on above: Order Comment: No: D o not add to previous draw Performed By: #### 5 0608 #### [facility] [address] [facility] [place] [address], [facility] MAGNESIUM BLOODon 11-25-2021 Magnesium [Mass/Vol] 1.8 mg/dL Low 1.9-2.7 The [facility] Comment on above: Order Comment: No: D o not add to previous draw Performed By: #### 4 1000, [id number], [id number] ####[facility] [place] [address], [facility] PHOSPHORUS BLOODon Phosphate [Mass/Vol] 1.8 mg/dL Low 2.5-5.0 The [facility] Comment on above: Order Comment: Evalu ate Performed By: #### 4 1000, [id number], [id number] ####[facility] [place] [address], [facility] BASIC METABOLIC PANELon - Calcium [Mass/Vol] 7.6 mg/dL Low 8.6-10.3 [facility] Comment on above: Order Comment: Hemog lobin < 9 gm/dl with known cardiac or cerebrovascular disease Performed By: #### 8 6002 #### [facility] [address] [place] [address], [facility] Chloride [Moles/Vol] 105 mmol/L Normal 98-107 The [facility] Comment on above: Order Comment: Hemog lobin < 9 gm/dl with known cardiac or cerebrovascular disease Performed By: #### 8 6002 #### [facility] [address] [place] [address], [place] CO2 [Moles/Vol] 28 mmol/L Normal 21-31 The [facility] Comment on above: Order Comment: Hemog lobin < 9 gm/dl with known cardiac or cerebrovascular disease Performed By: #### 8 6002 #### [facility] [address] [place] [address], [place] Creatinine [Mass/Vol] 0.77 mg/dL Normal 0.60-1.20 The [facility] Comment on above: Order Comment: Hemog lobin < 9 gm/dl with known cardiac or cerebrovascular disease Performed By: #### 8 6002 #### [facility] [address] [place] [address], [facility] GFR/1.73 sq M.predicted among non-blacks MDRD (S/P/Bld) [Vol rate/Area] mL/min/{1.73_m2} Normal >60 The [facility] Comment on above: Order Comment: Hemog lobin < 9 gm/dl with known cardiac or cerebrovascular disease Result Comment: The [facility]'s estimated glomerular filtration rate (eGFR) will no [...] individuals. Performed By: #### 8 6002 #### [facility] [address] [place] [address], [facility] Glucose [Mass/Vol] 103 mg/dL High 70-100 The [facility] Comment on above: Order Comment: Hemog lobin < 9 gm/dl with known cardiac or cerebrovascular disease Performed By: #### 8 6002 #### [facility] [address] [place] [address], [facility] Potassium [Moles/Vol] 4.4 mmol/L Normal 3.5-5.1 The [facility] Comment on above: Order Comment: Hemog lobin < 9 gm/dl with known cardiac or cerebrovascular disease Performed By: #### 8 6002 #### [facility] [address] [facility] [place] [address], [facility] Sodium [Moles/Vol] 138 mmol/L Normal 136-145 The [facility] Comment on above: Order Comment: Hemog lobin < 9 gm/dl with known cardiac or cerebrovascular disease Performed By: #### 8 6002 #### [facility] [address] [place] [address], [facility] Urea nitrogen [Mass/Vol] 19 mg/dL Normal 7-25 The [facility] Comment on above: Order Comment: Hemog lobin < 9 gm/dl with known cardiac or cerebrovascular disease Performed By: #### 8 6002 #### [facility] [address] [place] [address], [facility] CBC COMPLETE BLOOD COUNTon 0 - Erythrocyte distribution width (RBC) [Ratio] 13.5 % Normal 11.5-15.0 The [facility] Comment on above: Order Comment: No: D o not add to previous draw Performed By: #### 5 0608 #### [facility] [address] [place] [id number], [facility] Hematocrit (Bld) [Volume fraction] 26.0 % Low 36.0-45.0 The [facility] Comment on above: Order Comment: No: D o not add to previous draw Performed By: #### 5 0608 #### [facility] [address] [place] [address], [facility] Hemoglobin (Bld) [Mass/Vol] 8.4 g/dL Low 12.0-15.0 The [facility] Comment on above: Order Comment: No: D o not add to previous draw Performed By: #### 5 0608 #### [facility] [address] [place] [id number], [facility] MCH (RBC) [Entitic mass] 31.1 pg Normal 27.0-33.0 The [facility] Comment on above: Order Comment: No: D o not add to previous draw Performed By: #### 5 0608 #### [facility] [address] [place] [id number], [facility] MCHC (RBC) [Mass/Vol] 32.3 g/dL Normal 32.0-35.0 The [facility] Comment on above: Order Comment: No: D o not add to previous draw Performed By: #### 5 0608 #### [facility] [address] [place] [address], [facility] MCV (RBC) [Entitic vol] 96.3 fL Normal 82.0-98.0 The [facility] Comment on above: Order Comment: No: D o not add to previous draw Performed By: #### 5 0608 #### [facility] [address] [place] [id number], [facility] Nucleated RBC/100 WBC (Bld) [Ratio] 0 % Normal 0-0 The [facility] Comment on above: Order Comment: No: D o not add to previous draw Performed By: #### 5 0608 #### [facility] [address] [place] [address], [facility] PLAT CNT 155 10*3/uL Normal 150-400 The [facility] Comment on above: Order Comment: No: D o not add to previous draw Performed By: #### 5 0608 #### [facility] [address] [place] [address], [facility] RBC (Bld) [#/Vol] 2.70 10*6/uL Low 3.80-5.[address] [facility] Comment on above: Order Comment: No: D o not add to previous draw Performed By: #### 5 0608 #### [facility] [address] [place] [address], [facility] WBC (Bld) [#/Vol] 11.01 10*3/uL High 4.00-10.60 The [facility] Comment on above: Order Comment: No: D o not add to previous draw Performed By: #### 5 0608 #### [facility] [address] MAGNESIUM BLOODon 11-24-2021 Magnesium [Mass/Vol] 1.7 mg/dL Low 1.9-2.7 The [facility] Comment on above: Order Comment: Hemog lobin < 9 gm/dl with known cardiac or cerebrovascular disease Performed By: #### 8 6002 #### [facility] [address] Operative Reporton 2 Operative Report MR#: [id number] I [facility] Pt. Name: Myranda Yanes Room #: [id number] Discharge Date: Birthdate: 1940 OPERATIVE REPORT DATE OF SURGERY: 11/23/2021 SURGEON: Jaskaran Beal M.D. ASSISTANTS: 1. Manjinder Davis MD. 2. Jus Yancey MD. 3. Ankit Tobias MD. PREOPERATIVE DIAGNOSIS: Left tibial shaft fracture. POSTOPERATIVE DIAGNOSIS: Left tibial shaft fracture. PROCEDURE PERFORMED: Intramedullary nailing of left tibial shaft fracture. ANESTHESIA: General. BLOOD LOSS: Minimal. FLUIDS: Per anesthesia record. SPECIMENS: None. COMPLICATIONS: None. IMPLANTS: One [place] T2 alpha tibial nail measuring 11 x [...] Davis MD Date Trans: 11/24/2021 04:10 A/lalo KILGORE_JN:[id number] cc: Whitney Goodman M.D. [address] [facility] [id number] [facility] 2 Phosphate [Mass/Vol] 3.7 mg/dL Normal 2.5-5.0 The [facility] Comment on above: Order Comment: Hemog lobin < 9 gm/dl with known cardiac or cerebrovascular disease Performed By: #### 8 [id number] #### [facility] [address] *MRSA/MSSA DNA NASALon 11-23 *MRSA/MSSA DNA NASAL Clinical Report: (D) Specimen: NASAL SWAB Collected: 11/23/2021 15:10 Status: Final Last Updated: 11/23/2021 22:50 MSSA DNA (Final) Negative MRSA DNA (Final) Negative Normal The [facility] Comment on above: Performed By: #### 3 1595 #### [facility] [address] [facility] [place] [address], [facility] BASIC METABOLIC PANELon 10-31 Calcium [Mass/Vol] 7.9 mg/dL Low 8.6-10.3 [facility] Comment on above: Order Comment: No: D o not add to previous draw Performed By: #### 5 0608 #### [facility] [address] [facility] [place] [address], [facility] Chloride [Moles/Vol] 104 mmol/L Normal 98-107 The [facility] Comment on above: Order Comment: No: D o not add to previous draw Performed By: #### 5 0608 #### [facility] [address] [facility] [place] [address], [facility] CO2 [Moles/Vol] 26 mmol/L Normal 21-31 The [facility] Comment on above: Order Comment: No: D o not add to previous draw Performed By: #### 5 0608 #### [facility] [address] [place] [address], [facility] Creatinine [Mass/Vol] 0.83 mg/dL Normal 0.60-1.20 The [facility] Comment on above: Order Comment: No: D o not add to previous draw Performed By: #### 5 0608 #### [facility] [address] [place] [address], [place] GFR/1.73 sq M.predicted among blacks MDRD (S/P/Bld) [Vol rate/Area] mL/min/{1.73_m2} Normal >60 The [facility] Comment on above: Order Comment: No: D o not add to previous draw Result Comment: Calc ulation may not be valid for patients over 70 years Performed By: #### 5 0608 #### [facility] [address] [place] [address], [place] GFR/1.73 sq M.predicted among non-blacks MDRD (S/P/Bld) [Vol rate/Area] mL/min/{1.73_m2} Normal >60 The [facility] Comment on above: Order Comment: No: D o not add to previous draw Result Comment: Calc ulation may not be valid for patients over 70 years Performed By: #### 5 0608 #### [facility] [address] [place] [address], [place] Glucose [Mass/Vol] 104 mg/dL High 70-[address] [facility] Comment on above: Order Comment: No: D o not add to previous draw Performed By: #### 5 0608 #### [facility] [address] [place] [address], [place] Potassium [Moles/Vol] 4.2 mmol/L Normal 3.5-5.1 The [facility] Comment on above: Order Comment: No: D o not add to previous draw Performed By: #### 5 0608 #### [facility] [address] [place] [address], [place] Sodium [Moles/Vol] 136 mmol/L Normal 136-[address] [facility] Comment on above: Order Comment: No: D o not add to previous draw Performed By: #### 5 0608 #### [facility] [address] [place] [address], [place] Urea nitrogen [Mass/Vol] 25 mg/dL Normal 7-25 The [facility] Comment on above: Order Comment: No: D o not add to previous draw Performed By: #### 5 0608 #### [facility] [address] [place] [address], [facility] CBC COMPLETE BLOOD COUNTon 0 11-23-2021 Erythrocyte distribution width (RBC) [Ratio] 13.5 % Normal 11.5-15.0 The [facility] Comment on above: Order Comment: No: D o not add to previous draw Performed By: #### 5 0608 #### [facility] [address] [facility] [place] [address], [facility] Hematocrit (Bld) [Volume fraction] 22.7 % Low 36.0-45.0 The [facility] Comment on above: Order Comment: No: D o not add to previous draw Performed By: #### 5 0608 #### [facility] [address] [place] [address], [facility] Hemoglobin (Bld) [Mass/Vol] 7.3 g/dL Low 12.0-15.0 The [facility] Comment on above: Order Comment: No: D o not add to previous draw Performed By: #### 5 0608 #### [facility] [address] [place] [address], [facility] MCH (RBC) [Entitic mass] 31.2 pg Normal 27.0-33.0 The [facility] Comment on above: Order Comment: No: D o not add to previous draw Performed By: #### 5 0608 #### [facility] [address] [place] [address], [facility] MCHC (RBC) [Mass/Vol] 32.2 g/dL Normal 32.0-35.0 The [facility] Comment on above: Order Comment: No: D o not add to previous draw Performed By: #### 5 0608 #### [facility] [address] MCV (RBC) [Entitic vol] 97.0 fL Normal 82.0-98.0 The [facility] Comment on above: Order Comment: No: D o not add to previous draw Performed By: #### 5 0608 #### [facility] [address] [place] [address], [facility] Nucleated RBC/100 WBC (Bld) [Ratio] 0 % Normal 0-0 The [facility] Comment on above: Order Comment: No: D o not add to previous draw Performed By: #### 5 0608 #### [facility] [address] [place] [address], [facility] PLAT CNT 146 10*3/uL Low 150-400 The [facility] Comment on above: Order Comment: No: D o not add to previous draw Performed By: #### 5 0608 #### [facility] [address] [place] [address], [facility] RBC (Bld) [#/Vol] 2.34 10*6/uL Low 3.80-5.[address] [facility] Comment on above: Order Comment: No: D o not add to previous draw Performed By: #### 5 0608 #### [facility] [address] [place] [address], [facility] WBC (Bld) [#/Vol] 9.70 10*3/uL Normal 4.00-10.[address] [facility] Comment on above: Order Comment: No: D o not add to previous draw Performed By: #### 5 0608 #### [facility] [address] [place] [address], [facility] HEMOGLOBINon 11-23-2021 Hemoglobin (Bld) [Mass/Vol] 9.5 g/dL Low 12.0-15.0 The [facility] Comment on above: Order Comment: No: D o not add to previous draw Performed By: #### 5 0608 #### [facility] [address] [place] [address], [facility] MAGNESIUM BLOODon 11-23-2021 Magnesium [Mass/Vol] 1.7 mg/dL Low 1.9-2.7 The [facility] Comment on above: Order Comment: No: D o not add to previous draw Performed By: #### 5 0608 #### [facility] [address] [place] [address], [facility] PHOSPHORUS BLOODon 2 Phosphate [Mass/Vol] 2.1 mg/dL Low 2.5-5.0 The [facility] Comment on above: Order Comment: No: D o not add to previous draw Performed By: #### 5 0608 #### [facility] [address] [place] [address], [facility] POC GLUCOSE LABon 11-23-2021 Glucose [Mass/Vol] 82 mg/dL Normal 70-100 The [facility] Comment on above: Performed By: #### 8 5499 #### [facility] [address] [place] [address], [facility] RBC'S 1 UNITon 11-23-2021 CROSSMATCH INTERP 1 COMP Normal The [facility] Comment on above: Performed By: #### 8 6001 ####[facility] [facility].[address] PRODUCT CODE 1 E0336 Normal The [facility] Comment on above: Performed By: #### 8 6001 ####[facility] [facility].[address] PRODUCT STATUS 1 RE Normal The [facility] Comment on above: Result Comment: Resu lt changed by IF on 11/23/2021 16:20. The previous value was XM. Result changed by IF on 11/23/2021 18:36. The previous value was IS. Result changed by IF on 11/25/2021 07:10. The previous value was XM. Performed By: #### 8 6001 ####[facility] [place] [address], [facility] UNIT ABO 1 A Normal The [facility] Comment on above: Performed By: #### 8 6001 ####[facility] [place] [address], [facility] UNIT ID 1 [id number] Normal The [facility] Comment on above: Performed By: #### 8 6001 ####[facility] [place] [address], [facility] UNIT RH 1 Positive Normal The [facility] Comment on above: Performed By: #### 8 6001 ####[facility] [facility] [place] [address], [facility] RBC'S 2 UNITSon 11-23-2021 CROSSMATCH INTERP 1 COMP Normal The [facility] Comment on above: Order Comment: Hemog lobin < 9 gm/dl with known cardiac or cerebrovascular disease Performed By: #### 8 6002 #### [facility] [address] [place] [address], [facility] CROSSMATCH INTERP 2 COMP Normal [facility] Comment on above: Order Comment: Hemog lobin < 9 gm/dl with known cardiac or cerebrovascular disease Performed By: #### 8 6002 #### [facility] [address] [place] [address], [facility] PRODUCT CODE 1 E0336 Normal [facility] Hospital Comment on above: Order Comment: Hemog lobin < 9 gm/dl with known cardiac or cerebrovascular disease Performed By: #### 8 6002 #### [facility] [address] [place] [address], [facility] PRODUCT CODE 2 E0336 Normal The [facility] Comment on above: Order Comment: Hemog lobin < 9 gm/dl with known cardiac or cerebrovascular disease Performed By: #### 8 6002 #### [facility] [address] PRODUCT STATUS 1 RE Normal [facility] Comment on above: Order Comment: Hemog lobin < 9 gm/dl with known cardiac or cerebrovascular disease Result Comment: Resu lt changed by IF on 11/23/2021 16:20. The previous value was XM. Result changed by IF on 11/23/2021 18:36. The previous value was IS. Result changed by IF on 11/25/2021 07:10. The previous value was XM. Performed By: #### 8 6002 #### [facility] [address] PRODUCT STATUS 2 PT Normal The [facility] Comment on above: Order Comment: Hemog lobin < 9 gm/dl with known cardiac or cerebrovascular disease Result Comment: Resu lt changed by IF on 11/23/2021 10:46. The previous value was XM. Result changed by IF on 11/24/2021 00:30. The previous value was IS. Performed By: #### 8 6002 #### [facility] [address] [place] [address], [facility] UNIT ABO 1 A Normal [facility] Comment on above: Order Comment: Hemog lobin < 9 gm/dl with known cardiac or cerebrovascular disease Performed By: #### 8 6002 #### [facility] [address] [place] [address], [facility] UNIT ABO 2 A Normal [facility] Comment on above: Order Comment: Hemog lobin < 9 gm/dl with known cardiac or cerebrovascular disease Performed By: #### 8 6002 #### [facility] [address] [place] [address], [facility] UNIT ID 1 [id number] Normal [facility] Comment on above: Order Comment: Hemog lobin < 9 gm/dl with known cardiac or cerebrovascular disease Performed By: #### 8 6002 #### [facility] [address] [facility] [address] UNIT ID 2 [id number] Normal [facility] Comment on above: Order Comment: Hemog lobin < 9 gm/dl with known cardiac or cerebrovascular disease Performed By: #### 8 6002 #### [facility] [address] [facility] [address] UNIT RH 1 Positive Normal [facility] Comment on above: Order Comment: Hemog lobin < 9 gm/dl with known cardiac or cerebrovascular disease Performed By: #### 8 6002 #### [facility] [address] [facility] [place] [address], [facility] UNIT RH 2 Positive Normal [facility] Comment on above: Order Comment: Hemog lobin < 9 gm/dl with known cardiac or cerebrovascular disease Performed By: #### 8 6002 #### [facility] [address] [facility]. [address] TIBIA FIBULA LEFTon 11-24-19 22 TIBIA FIBULA LEFT [facility] Department of Radiology [address] [place] [id number] ======== Patient Name: MYRANDA YANES : 1940 Sex: F Age: Race: White Pt. Location: [id number] Patient Status: I Ordered Date: 11/23/2021 6:45:00 [...] provided. Electronically signed: Dread Wills. Transcribed by: [email or web address], User Resident: Electronically Signed by: DREAD WILLS @ 11/24/2021 02:58 PM Normal [facility] Comment on above: Order Comment: IM ro dding left tibia BASIC METABOLIC PANELon 10-31 Calcium [Mass/Vol] 8.3 mg/dL Low 8.6-10.3 [facility] Comment on above: Order Comment: No: D o not add to previous draw Performed By: #### 4 1000, 31671, 57687 ####[facility] [place] [address], [facility] Chloride [Moles/Vol] 106 mmol/L Normal 98-107 [facility] Comment on above: Order Comment: No: D o not add to previous draw Performed By: #### 4 1000, 19973, 66780 ####[facility] [place] [address], [place] CO2 [Moles/Vol] 27 mmol/L Normal 21-31 [facility] Comment on above: Order Comment: No: D o not add to previous draw Performed By: #### 4 1000, 94123, 00728 ####[facility] [id number], [place] Creatinine [Mass/Vol] 0.88 mg/dL Normal 0.60-1.20 The [facility] Comment on above: Order Comment: No: D o not add to previous draw Performed By: #### 4 1000, 07495, 01564 ####[facility] [place] [address], [place] GFR/1.73 sq M.predicted among blacks MDRD (S/P/Bld) [Vol rate/Area] mL/min/{1.73_m2} Normal >60 The [facility] Comment on above: Order Comment: No: D o not add to previous draw Result Comment: Calc ulation may not be valid for patients over 70 years Performed By: #### 4 999, 81919, 01467 ####[facility] [place] [address], [place] GFR/1.73 sq M.predicted among non-blacks MDRD (S/P/Bld) [Vol rate/Area] mL/min/{1.73_m2} Normal >60 The [facility] Comment on above: Order Comment: No: D o not add to previous draw Result Comment: Calc ulation may not be valid for patients over 70 years Performed By: #### 4 999, 47602, 55305 ####[facility] [facility] [place] [address], [place] Glucose [Mass/Vol] 103 mg/dL High 70-[address] [facility] Comment on above: Order Comment: No: D o not add to previous draw Performed By: #### 4 999, 33295, 04074 ####[facility] [facility] [place] [address], [place] Potassium [Moles/Vol] 4.4 mmol/L Normal 3.5-5.1 The [facility] Comment on above: Order Comment: No: D o not add to previous draw Performed By: #### 4 999, 18331, 69705 ####[facility] [facility] [place] [address], [place] Sodium [Moles/Vol] 139 mmol/L Normal 136-[address] [facility] Comment on above: Order Comment: No: D o not add to previous draw Performed By: #### 4 999, 00535, 96078 ####[facility] [place] [address], [facility] Urea nitrogen [Mass/Vol] 30 mg/dL High 7-25 The [facility] Comment on above: Order Comment: No: D o not add to previous draw Performed By: #### 4 1000, 71908, 07857 ####[facility] [place] [address], [facility] CBC COMPLETE BLOOD COUNTon 0 - Erythrocyte distribution width (RBC) [Ratio] 13.8 % Normal 11.5-15.0 The [facility] Comment on above: Order Comment: No: D o not add to previous draw Performed By: #### 5 0608 #### [facility] [address] [place] [address], [facility] Hematocrit (Bld) [Volume fraction] 27.9 % Low 36.0-45.0 The [facility] Comment on above: Order Comment: No: D o not add to previous draw Performed By: #### 5 0608 #### [facility] [address] [place] [address], [facility] Hemoglobin (Bld) [Mass/Vol] 8.7 g/dL Low 12.0-15.0 The [facility] Comment on above: Order Comment: No: D o not add to previous draw Performed By: #### 5 0608 #### [facility] [address] [place] [address], [facility] MCH (RBC) [Entitic mass] 30.7 pg Normal 27.0-33.0 The [facility] Comment on above: Order Comment: No: D o not add to previous draw Performed By: #### 5 0608 #### [facility] [address] [place] [address], [facility] MCHC (RBC) [Mass/Vol] 31.2 g/dL Low 32.0-35.0 The [facility] Comment on above: Order Comment: No: D o not add to previous draw Performed By: #### 5 0608 #### [facility] [address] [place] [address], [facility] MCV (RBC) [Entitic vol] 98.6 fL High 82.0-98.0 The [facility] Comment on above: Order Comment: No: D o not add to previous draw Performed By: #### 5 0608 #### [facility] [address] [place] [address], [facility] Nucleated RBC/100 WBC (Bld) [Ratio] 0 % Normal 0-0 The [facility] Comment on above: Order Comment: No: D o not add to previous draw Performed By: #### 5 0608 #### [facility] [address] [facility] [place] [address], [facility] PLAT CNT 196 10*3/uL Normal 150-400 The [facility] Comment on above: Order Comment: No: D o not add to previous draw Performed By: #### 5 0608 #### [facility] [address] [facility] [place] [address], [facility] RBC (Bld) [#/Vol] 2.83 10*6/uL Low 3.80-5.[address] [facility] Comment on above: Order Comment: No: D o not add to previous draw Performed By: #### 5 0608 #### [facility] [address] [place] [address], [facility] WBC (Bld) [#/Vol] 9.05 10*3/uL Normal 4.00-10.[address] [facility] Comment on above: Order Comment: No: D o not add to previous draw Performed By: #### 5 0608 #### [facility] [address] [place] [address], [facility] MAGNESIUM BLOODon 11-22-2021 Magnesium [Mass/Vol] 2.0 mg/dL Normal 1.9-2.7 The [facility] Comment on above: Order Comment: No: D o not add to previous draw Performed By: #### 4 1000, 59114, 84389 ####[facility] [facility] [place] [address], [facility] PHOSPHORUS BLOODon 2 Phosphate [Mass/Vol] 3.1 mg/dL Normal 2.5-5.0 The [facility] Comment on above: Order Comment: No: D o not add to previous draw Performed By: #### 4 1000, 44296, 85161 ####[facility] [place] [address], [facility] URINALYSIS REFLEXon 11-23-19 22 Appearance (U) SL CLOUDY Abnormal CLEAR [facility] Comment on above: Order Comment: No: D o not add to previous drawCriteria for reflexing a culture was not met. Please call the lab [id number] within 24 hours of collection time if culture is needed Performed By: #### 3 2043 #### [facility] [address] [place] [address], [facility] Bilirubin Ql (U) Negative Normal NEGATIVE The [facility] Comment on above: Order Comment: No: D o not add to previous drawCriteria for reflexing a culture was not met. Please call the lab [id number] within 24 hours of collection time if culture is needed Performed By: #### 3 2043 #### [facility] [address] [place] [address], [facility] Color (U) YELLOW Normal YELLOW The [facility] Comment on above: Order Comment: No: D o not add to previous drawCriteria for reflexing a culture was not met. Please call the lab [id number] within 24 hours of collection time if culture is needed Performed By: #### 3 2043 #### [facility] [address] [place] [address], [place] EPIS NONE SEEN Normal FEW,OCC,NONE SEEN The [facility] Comment on above: Order Comment: No: D o not add to previous drawCriteria for reflexing a culture was not met. Please call the lab [id number] within 24 hours of collection time if culture is needed Performed By: #### 3 2043 #### [facility] [address] [place] [address], [facility] Glucose Ql (U) Negative Normal NEGATIVE [facility] Comment on above: Order Comment: No: D o not add to previous drawCriteria for reflexing a culture was not met. Please call the lab [id number] within 24 hours of collection time if culture is needed Performed By: #### 3 2043 #### [facility] [address] [place] [address], [facility] Hemoglobin Ql (U) MODERATE Abnormal NEGATIVE The [facility] Comment on above: Order Comment: No: D o not add to previous drawCriteria for reflexing a culture was not met. Please call the lab [id number] within 24 hours of collection time if culture is needed Performed By: #### 3 2043 #### [facility] [address] [place] [address], [facility] KETONE Negative Normal NEGATIVE The [facility] Comment on above: Order Comment: No: D o not add to previous drawCriteria for reflexing a culture was not met. Please call the lab [id number] within 24 hours of collection time if culture is needed Performed By: #### 3 2043 #### [facility] [address] [place] [address], [facility] LEUK BEV Negative Normal NEGATIVE The [facility] Comment on above: Order Comment: No: D o not add to previous drawCriteria for reflexing a culture was not met. Please call the lab [id number] within 24 hours of collection time if culture is needed Performed By: #### 3 2043 #### [facility] [address] [place] [address], [place] MUCUS THREADS MOD Abnormal NONE SEEN The [facility] Comment on above: Order Comment: No: D o not add to previous drawCriteria for reflexing a culture was not met. Please call the lab [id number] within 24 hours of collection time if culture is needed Performed By: #### 3 2043 #### [facility] [address] [facility] [place] [address], [facility] Nitrite Ql (U) Positive Abnormal NEGATIVE The [facility] Comment on above: Order Comment: No: D o not add to previous drawCriteria for reflexing a culture was not met. Please call the lab [id number] within 24 hours of collection time if culture is needed Performed By: #### 3 2043 #### [facility] [address] [facility] [place] [address], [facility] pH (U) 5.0 [pH] Normal 5.0-8.0 The [facility] Comment on above: Order Comment: No: D o not add to previous drawCriteria for reflexing a culture was not met. Please call the lab [id number] within 24 hours of collection time if culture is needed Performed By: #### 3 2043 #### [facility] [address] [place] [address], [facility] Protein Ql (U) Negative Normal NEGATIVE The [facility] Comment on above: Order Comment: No: D o not add to previous drawCriteria for reflexing a culture was not met. Please call the lab [id number] within 24 hours of collection time if culture is needed Performed By: #### 3 2043 #### [facility] [address] [facility] [place] [address], [facility] RBC 0-2 Abnormal NONE SEEN The [facility] Comment on above: Order Comment: No: D o not add to previous drawCriteria for reflexing a culture was not met. Please call the lab [id number] within 24 hours of collection time if culture is needed Performed By: #### 3 2043 #### [facility] [address] [place] [id number], [facility] SPEC GRAV 1.019 Normal 1.015-1.020 The [facility] Comment on above: Order Comment: No: D o not add to previous drawCriteria for reflexing a culture was not met. Please call the lab [id number] within 24 hours of collection time if culture is needed Performed By: #### 3 4 #### [facility] [address] [place] [address], [facility] WBC UA 0-2 Abnormal NONE SEEN The [facility] Comment on above: Order Comment: No: D o not add to previous drawCriteria for reflexing a culture was not met. Please call the lab [id number] within 24 hours of collection time if culture is needed Performed By: #### 3 4 #### [facility] [address] [facility]. [address] APTTon 11-21-2021 aPTT Coag (Bld) [Time] 28.9 s Normal 25.0-35.0 The [facility] Comment on above: Result Comment: ALL RESULTS [...] PURPOSE. Performed By: #### 5 0608 #### [facility] [address] CBC AUTO DIFFon 11-21-2021 BASO # 0.0 103/ul Normal 0.0-0.1 The [facility] Comment on above: Performed By: #### C BC ####[facility] [address] [place], [place] [address]Dr. Arnoldo Taylor Basophils/100 WBC (Bld) 0.2 % Normal 0.2-2.0 The [facility] Comment on above: Performed By: #### C BC ####[facility] [address] [place] [address]Dr. Yilan Taylor EO # 0.2 103/ul Normal 0.0-0.7 The [facility] Comment on above: Performed By: #### C BC ####[facility] [address] [place] [address]Dr. Arnoldo Taylor Eosinophils/100 WBC (Bld) 1.1 % Normal 0.9-7.0 The [facility] Comment on above: Performed By: #### C BC ####[facility] N[address] [place], [place] [address]Dr. Arnoldo Taylor Erythrocyte distribution width (RBC) [Ratio] 13.8 % Normal 11.0-15.0 The [facility] Comment on above: Performed By: #### C BC ####[facility] [address] [place], [place] [address]Dr. Arnoldo Taylor Hematocrit (Bld) [Volume fraction] 32.1 % Critically low 36.0-48.0 The [facility] Comment on above: Performed By: #### C BC ####[facility] [address] [place], [place] [address]Dr. Arnoldo Taylor Hemoglobin (Bld) [Mass/Vol] 10.2 g/dL Critically low 12.0-16.0 [facility] Comment on above: Performed By: #### C BC ####[facility] [address] [place], [place] [address]Dr. Arnoldo Taylor IG # 0.08 10e3/ul Critically high 0.00-0.03 [facility] Comment on above: Performed By: #### C BC ####[facility] [address] [place] [address]Dr. Arnoldo Taylor IG % 0.6 % Critically high 0.0-0.5 The [facility] Comment on above: Performed By: #### C BC ####[facility] [address] [place], [place] [id number]. Arnoldo Taylor LYMPH # 1.1 103/ul Critically low 1.2-3.8 The [facility] Comment on above: Performed By: #### C BC ####[facility] [address] [place], [place] [address]Dr. Arnoldo Taylor Lymphocytes/100 WBC (Bld) 8.0 % Critically low 20.5-60.0 The [facility] Comment on above: Performed By: #### C BC ####[facility] [address] [place] [id number]. Arnoldo Taylor MANUAL DIFF REQ NO Normal The [facility] Comment on above: Performed By: #### C BC ####[facility] [address] [place] [id number]. Arnoldo Taylor MCH (RBC) [Entitic mass] 30.7 pg Normal 26.7-34.0 The [facility] Comment on above: Performed By: #### C BC ####[facility] [address] [place], [place] [id number]. Arnoldo Taylor MCHC (RBC) [Mass/Vol] 31.8 g/dL Normal 29.9-35.2 The [facility] Comment on above: Performed By: #### C BC ####[facility] [address] [place], [place] [address]Dr. Arnoldo Taylor MCV (RBC) [Entitic vol] 96.7 fL Normal 81.0-99.0 The [facility] Comment on above: Performed By: #### C BC ####[facility] [address]fxwcp[address] [place] [id number]. Arnoldo Brandon MONO # 1.2 103/ul Critically high 0.3-0.8 The [facility] Comment on above: Performed By: #### C BC ####[facility] [address] [place] [address]Dr. Arnoldo Taylor Monocytes/100 WBC (Bld) 8.6 % Normal 1.7-12.0 The [facility] Comment on above: Performed By: #### C BC ####[facility] [address] [place], [place] [id number]. Lynettesujata Taylor NEUT # 10.9 103/ul Critically high 1.4-6.5 The [facility] Comment on above: Performed By: #### C BC ####[facility] [address] [place], [place] [id number]. Arnoldo Taylor Neutrophils/100 WBC (Bld) 81.5 % Critically high 43.0-75.0 The [facility] Comment on above: Performed By: #### C BC ####[facility] [address] [place], [place] [address]Yl. Arnoldo Taylor Platelet mean volume (Bld) [Entitic vol] 8.8 fL Critically low 9.5-13.5 [facility] Comment on above: Performed By: #### C BC ####[facility] [address] [place], [place] [address]Lx. Arnoldo Taylor PLT 242 103/ul Normal 150-450 The [facility] Comment on above: Performed By: #### C BC ####[facility] [address]miidly[address] [place], [place] [address]Wn. Arnoldo Taylor RBC 3.32 106/ul Critically low 4.20-5.40 [facility] Comment on above: Performed By: #### C BC ####[facility] [address]kf[address] [place], [place] [address]Ol. Arnoldo Taylor WBC 13.4 103/ul Critically high 4.0-11.0 The [facility] Comment on above: Performed By: #### C BC ####[facility] [address]em[address] [place], [place] [address]Ho. Arnoldo Taylor CBC W/DIFFon 11-21-2021 ABS IMM GRANS 0.1 10*3/uL Normal 0.0-0.2 The [facility] Comment on above: Performed By: #### 5 0608 #### [facility] [address] [place] [address], [facility] ABS NEUTROPHILS 9.6 10*3/uL High 1.6-7.6 The [facility] Comment on above: Performed By: #### 5 0608 #### [facility] [address] [place] [address], [facility] Basophils (Bld) [#/Vol] 0.0 10*3/uL Normal 0.0-0.2 [facility] Comment on above: Performed By: #### 5 0608 #### [facility] [address] [facility] [place] [address], [facility] Basophils/100 WBC (Bld) 0.2 % Normal 0.0-1.0 The [facility] Comment on above: Performed By: #### 5 0608 #### [facility] [address] [place] [address], [facility] Eosinophils (Bld) [#/Vol] 0.1 10*3/uL Normal 0.0-0.5 The [facility] Comment on above: Performed By: #### 5 0608 #### [facility] [address] [place] [address], [facility] Eosinophils/100 WBC (Bld) 0.5 % Normal 0.0-6.0 The [facility] Comment on above: Performed By: #### 5 0608 #### [facility] [address] [facility]. [address] Erythrocyte distribution width (RBC) [Ratio] 13.8 % Normal 11.5-15.0 The [facility] Comment on above: Performed By: #### 5 0608 #### [facility] [address] [facility] [place] [address], [facility] Hematocrit (Bld) [Volume fraction] 31.8 % Low 36.0-45.0 The [facility] Comment on above: Performed By: #### 5 0608 #### [facility] [address] [facility]. [address] Hemoglobin (Bld) [Mass/Vol] 9.9 g/dL Low 12.0-15.0 The [facility] Comment on above: Performed By: #### 5 0608 #### [facility] [address] [place] [address], [facility] IMMATURE GRANS 0.4 % Normal 0.0-1.0 The [facility] Comment on above: Performed By: #### 5 0608 #### [facility] [address] [place] [address], [facility] Lymphocytes (Bld) [#/Vol] 1.9 10*3/uL Normal 1.2-4.0 The [facility] Comment on above: Performed By: #### 5 0608 #### [facility] [address] [facility] [place] [address], [facility] Lymphocytes/100 WBC (Bld) 14.7 % Low 20.0-45.0 The [facility] Comment on above: Performed By: #### 5 0608 #### [facility] [address] [facility] [place] [address], [facility] MCH (RBC) [Entitic mass] 30.5 pg Normal 27.0-33.0 The [facility] Comment on above: Performed By: #### 5 0608 #### [facility] [address] [facility] [address] MCHC (RBC) [Mass/Vol] 31.1 g/dL Low 32.0-35.0 The [facility] Comment on above: Performed By: #### 5 0608 #### [facility] [address] [place] [address], [facility] MCV (RBC) [Entitic vol] 97.8 fL Normal 82.0-98.0 The [facility] Comment on above: Performed By: #### 5 0608 #### [facility] [address] [facility] [place] [address], [facility] Monocytes (Bld) [#/Vol] 1.5 10*3/uL High 0.1-1.0 The [facility] Comment on above: Performed By: #### 5 0608 #### [facility] [address] [place] [address], [facility] MONOS 11.2 % Normal 5.0-12.0 The [facility] Comment on above: Performed By: #### 5 0608 #### [facility] [address] [facility] [place] [address], [facility] Neutrophils/100 WBC (Bld) 73.0 % High 40.0-72.0 [facility] Comment on above: Performed By: #### 5 0608 #### [facility] [address] [facility] [place] [address], [facility] Nucleated RBC/100 WBC (Bld) [Ratio] 0 % Normal 0-0 [facility] Comment on above: Performed By: #### 5 0608 #### [facility] [address] [facility] [place] [address], [facility] PLAT CNT 261 10*3/uL Normal 150-400 [facility] Comment on above: Performed By: #### 5 0608 #### [facility] [address] [facility]. [address] RBC (Bld) [#/Vol] 3.25 10*6/uL Low 3.80-5.00 [facility] Comment on above: Performed By: #### 5 0608 #### [facility] [address] [facility]. [address] WBC (Bld) [#/Vol] 13.09 10*3/uL High 4.00-10.60 [facility] Comment on above: Performed By: #### 5 0608 #### [facility] [address] COMP METABOLIC PANELon 11-21 Albumin [Mass/Vol] 3.5 g/dL Normal 3.5-5.7 [facility] Comment on above: Performed By: #### 0 0121, [id number] ####[facility] [facility].[address] ALKALINE PHOSPH 138 IU/L High 34-104 [facility] Comment on above: Performed By: #### 0 0121, 04917 ####[facility] ALT [Catalytic activity/Vol] 22 U/L Normal 7-52 The [facility] Comment on above: Performed By: #### 0 0121, 03767 ####[facility] [place] [address], [facility] AST [Catalytic activity/Vol] 21 U/L Normal 13-39 The [facility] Comment on above: Performed By: #### 0 0121, 47198 ####[facility] [place] [address], [place] Bilirubin [Mass/Vol] 0.9 mg/dL Normal 0.3-1.0 The [facility] Comment on above: Performed By: #### 0 0121, 92166 ####[facility] [place] [address], [place] Calcium [Mass/Vol] 8.8 mg/dL Normal 8.6-10.3 [facility] Comment on above: Performed By: #### 0 012, 75104 ####[facility] [place] [address], [place] Chloride [Moles/Vol] 105 mmol/L Normal 98-107 [facility] Comment on above: Performed By: #### 0 0121, 54961 ####[facility] [place] [address], [place] CO2 [Moles/Vol] 28 mmol/L Normal 21-31 [facility] Comment on above: Performed By: #### 0 0121, 67308 ####[facility] [place] [address], [place] Creatinine [Mass/Vol] 0.94 mg/dL Normal 0.60-1.20 The [facility] Comment on above: Performed By: #### 0 0121, 48297 ####[facility] [place] [address], [place] eGFR- non- 57 ml/min/1.73sq m Abnormal >60 The [facility] Comment on above: Result Comment: Calc ulation may not be valid for patients over 70 years Performed By: #### 0 0121, 93442 ####[facility] [place] [address], [place] GFR/1.73 sq M.predicted among blacks MDRD (S/P/Bld) [Vol rate/Area] mL/min/{1.73_m2} Normal >60 The [facility] Comment on above: Result Comment: Calc ulation may not be valid for patients over 70 years Performed By: #### 0 0121, 21793 ####[facility] [place] [address], [place] Glucose [Mass/Vol] 106 mg/dL High 70-100 The [facility] Comment on above: Performed By: #### 0 0121, 40433 ####[facility] [place] [address], [place] Potassium [Moles/Vol] 4.9 mmol/L Normal 3.5-5.1 The [facility] Comment on above: Performed By: #### 0 0121, 47614 ####[facility] [place] [address], [place] Protein [Mass/Vol] 6.6 g/dL Normal 6.0-8.3 The [facility] Comment on above: Performed By: #### 0 0121, 06500 ####[facility] [place] [address], [place] Sodium [Moles/Vol] 140 mmol/L Normal 136-145 The [facility] Comment on above: Performed By: #### 0 0121, 73296 ####[facility] [place] [address], [place] Urea nitrogen [Mass/Vol] 31 mg/dL High 7-25 The [facility] Comment on above: Performed By: #### 0 0121, 07996 ####[facility] CSPINE WO CONon CT CSPINE WO CON Normal The [facility] CT LOWER EXTREMITY WO CONTRA ST LEFTon 11-21-2021 CT LOWER EXTREMITY WO CONTRAST LEFT [facility] Department of Radiology [address] [place] [id number] ======== Patient Name: MYRANDA YANES : 1940 Sex: F Age: Race: White Pt. Location: [facility] Patient Status: E Ordered Date: 11/21/2021 3:25:00 [...] swelling. Electronically signed: Liane Wright. Transcribed by: [email or web address], User Resident: Electronically Signed by: LIANE WRIGHT @ 11/21/2021 04:08 PM Normal The [facility] Comment on above: Order Comment: Other , please include left ankle joint Covid-19 PCR (CVDTBH)on 10-31 SARS-CoV-2 (COVID-19) RNA JAMMIE+probe Ql (Unsp spec) Not detected Normal NOT DETECTED The [facility] Comment on above: Result Comment: When [...] for this test is supported by the [place] of Health and Human Service's declaration that [...] be used). Performed By: #### C VDTB ####[facility] [address] [place] [address]Dr. Lynettesujata Taylor ER URINE PROFILEon 2 Bilirubin Ql (U) Negative Normal NEGATIVE The [facility] Comment on above: Performed By: #### U MICRO, ERUR ####[facility] Q[address] [place], [place] [address]Dr. Lynettesujata Taylor Clarity (U) CLEAR Normal CLEAR The [facility] Comment on above: Performed By: #### U MICRO, ERUR ####[facility] [address] [place], [place] [address]Dr. Lynettesujata Taylor Color (U) LT. YELLOW Normal YELLOW The [facility] Comment on above: Performed By: #### U MICRO, ERUR ####[facility] [address] [place], [place] [address]Dr. Arnoldo Taylor ERUAHD A micrscopic examination will be performed if indicated. Normal The [facility] Comment on above: Performed By: #### U MICRO, ERUR ####[facility] Ypsdzglqqu[address] [place], [place] [address]Dr. Lynettelan Taylor Glucose Ql (U) Negative Normal NEGATIVE The [facility] Comment on above: Performed By: #### U MICRO, ERUR ####[facility] [address] [place], [place] [address]Dr. Yilan Taylor Hemoglobin Ql (U) SMALL Abnormal NEGATIVE The [facility] Comment on above: Performed By: #### U MICRO, ERUR ####[facility] [address]je[address] [place], [place] [address]Dr. Lynettelan Taylor Ketones Ql (U) Negative Normal NEGATIVE The [facility] Comment on above: Performed By: #### U MICRO, ERUR ####[facility] H[address]qs[address] [place], [place] [address]Dr. Yilan Taylor LEUKOCYTES Negative Normal NEGATIVE The [facility] Comment on above: Performed By: #### U MICRO, ERUR ####[facility] [address] [place] [address]Dr. Arnoldo Brandon Nitrite Ql (U) Negative Normal NEGATIVE The [facility] Comment on above: Performed By: #### U MICRO, ERUR ####[facility] Jpqkilthkg[address] [place] [address]Dr. Arnoldo Taylor pH (U) 6.0 [pH] Normal 5-9 [facility] Comment on above: Performed By: #### U MICRO, ERUR ####[facility] [address] [place] [address]Dr. Arnoldo Taylor SPEC GRAVITY 1.010 Normal 1.005-<=1.025 [facility] Comment on above: Performed By: #### U MICRO, ERUR ####[facility] [address] [place] [address]Dr. Arnoldo Taylor UA PROTEIN Negative Normal NEGATIVE/ TRACE The [facility] Comment on above: Performed By: #### U MICRO, ERUR ####[facility] [address] [place] [address]Dr. Arnoldo Taylor UR MICRO IND INDICATED Normal The [facility] Comment on above: Performed By: #### U MICRO, ERUR ####[facility] Akteelfgab[address] [place] [address]Dr. Arnoldo Taylor Urobilinogen Qn (U) 0.2 {Adrienne'U}/dL Normal 0.2 - 1. 0 [facility] Comment on above: Performed By: #### U MICRO, ERUR ####[facility] [address]qbiimgo[address] [place] [address]Dr. Arnoldo Taylor POC SARS COV2 IDon 2 SARS-CoV-2 (COVID-19) RNA JAMMIE+probe Ql (Unsp spec) Negative Normal NEGATIVE The [facility] Comment on above: Result Comment: ID N [...] Accreditation. Performed By: #### 3 1595 #### [address] PORTABLE TIBIA FIBULA LEFTon 11-21-2021 PORTABLE TIBIA FIBULA LEFT [facility] Department of Radiology [address] [place] [id number] ======== Patient Name: MYRANDA YANES : 1940 Sex: F Age: Race: White Pt. Location: [facility] Patient Status: E Ordered Date: 11/21/2021 3:10:00 [...] fibula. Electronically signed: Liane Wright. Transcribed by: [email or web address], User Resident: Electronically Signed by: LIANE WRIGHT @ 11/21/2021 03:53 PM Normal The [facility] Comment on above: Order Comment: Crite brittaney for reflexing a culture was not met. Please call the lab at [phone] within 24 hours of collection time if culture is needed PROF CHEM 8 (BAS METB)on Anion gap [Moles/Vol] 11.8 mmol/L Normal The [facility] Comment on above: Performed By: #### B MP ####[facility] [address] [place] [address]Dr. Arnoldo Taylor Calcium [Mass/Vol] 8.8 mg/dL Normal 8.5-10.1 [facility] Comment on above: Performed By: #### B MP ####[facility] [address]lsq[address] [place] [address]Dr. Yilan Taylor Chloride [Moles/Vol] 105 mmol/L Normal 98-107 [facility] Comment on above: Performed By: #### B MP ####[facility] [address] [place] [address]Dr. Yilan Taylor CO2 [Moles/Vol] 27.3 mmol/L Normal 21.0-32.0 [facility] Comment on above: Performed By: #### B MP ####[facility] Effrsnenkf[address] [place] [address]Dr. Arnoldo Taylor Creatinine [Mass/Vol] 1.07 mg/dL Critically high 0.55-1.02 [facility] Comment on above: Performed By: #### B MP ####[facility] [address] [place] [address]Dr. Arnoldo Taylor EGFR-AF LIBYAN =60 Normal >=60 [facility] Comment on above: Performed By: #### B MP ####[facility] [address] [place], [place] [address]Dr. Arnoldo Taylor EGFR-NON AF LIBYAN 49 mL/min/1.73m2 Critically low >=60 [facility] Comment on above: Performed By: #### B MP ####[facility] [address] [place], [place] [address]Dr. Arnoldo Taylor Glucose [Mass/Vol] 112 mg/dL Critically high 74-106 [facility] Comment on above: Performed By: #### B MP ####[facility] Lthttlfjta[address] [place], [place] [address]Dr. Arnoldo Taylor Potassium [Moles/Vol] 4.1 mmol/L Normal 3.5-5.1 [facility] Comment on above: Performed By: #### B MP ####[facility] [address]wep[address] [place], [place] [address]Dr. Arnoldo Taylor Sodium [Moles/Vol] 140 mmol/L Normal 136-145 [facility] Comment on above: Performed By: #### B MP ####[facility] Lemuiov[address] [place], [place] [address]Dr. Arnoldo Taylor Urea nitrogen [Mass/Vol] 29.0 mg/dL Critically high 7.0-18.0 [facility] Comment on above: Performed By: #### B MP ####[facility] [address] [place], [place] [address]Dr. Arnoldo Taylor Urea nitrogen/Creatinine [Mass ratio] 27.1 mg/mg Normal [facility] Comment on above: Performed By: #### B MP ####[facility] [address] [place], [place] [address]DrTye Taylor PROTHROMBIN TIMEon 2 INR Coag (PPP) [Relative time] 1.07 {INR} Normal 0.91-1.16 The [facility] Comment on above: Result Comment: ACCC P [...] 1995;[id number]. Performed By: #### 5 0608 #### [address] PT Coag (PPP) [Time] 13.9 s Normal 12.3-14.8 The [facility] Comment on above: Result Comment: ALL RESULTS MUST BE INTERPRETED WITH RESPECT TO BLOOD DRAWING ARTIFACT OR DILUTION ERROR OF ANTICOAGULANT AT THE TIME OF SAMPLING. Performed By: #### 5 0608 #### [address] TIBIA FIBULA LEFTon 11-22-19 22 TIBIA FIBULA LEFT [facility] Department of Radiology [address] [place] [id number] ======== Patient Name: MYRANDA YANSE : 1940 Sex: F Age: Race: White Pt. Location: [facility] Patient Status: E Ordered Date: 11/21/2021 2:35:00 [...] fibula. Electronically signed: Liane Wright. Transcribed by: [email or web address], User Resident: Electronically Signed by: LIANE WRIGHT @ 11/21/2021 03:50 PM Normal The [facility] Comment on above: Order Comment: Crite brittaney for reflexing a culture was not met. Please call the lab at [phone] within 24 hours of collection time if culture is needed TROPONIN-Ion 07-23-2022 Troponin I.cardiac [Mass/Vol] 0.01 ng/mL Normal 0.00-0.04 The [facility] Comment on above: Result Comment: REFE RENCE RANGES: 0.00 - 0.04 ng/ml NORMAL 0.05 - 0.50 ng/ml INDETERMINATE > 0.50 ng/ml CONSISTENT WITH AN M.I. Performed By: #### 0 0121, 96394 ####[facility] TYPE AND SCREENon 11-21-2021 ABO INTERPRETATION A Normal [facility] Comment on above: Performed By: #### 5 0608 #### [facility] [address] RH INTERPRETATION Positive Normal The [facility] Comment on above: Performed By: #### 5 0608 #### [facility] [address] URINALYSIS REFLEXon 11-22-19 22 Appearance (U) CLEAR Normal CLEAR The [facility] Comment on above: Order Comment: Crite brittaney for reflexing a culture was not met. Please call the lab at [phone] within 24 hours of collection time if culture is needed Performed By: #### 3 0965 #### [facility] [address] Bilirubin Ql (U) Negative Normal NEGATIVE The [facility] Comment on above: Order Comment: Crite brittaney for reflexing a culture was not met. Please call the lab at [phone] within 24 hours of collection time if culture is needed Performed By: #### 3 0965 #### [facility] [address] Color (U) YELLOW Normal YELLOW The [facility] Comment on above: Order Comment: Crite brittaney for reflexing a culture was not met. Please call the lab at [phone] within 24 hours of collection time if culture is needed Performed By: #### 3 0965 #### [facility] [address] [place] [address], [place] EPIS NONE SEEN Normal FEW,OCC,NONE SEEN The [facility] Comment on above: Order Comment: Crite brittaney for reflexing a culture was not met. Please call the lab at [phone] within 24 hours of collection time if culture is needed Performed By: #### 3 0965 #### [facility] [address] [place] [address], [place] Glucose Ql (U) Negative Normal NEGATIVE The [facility] Comment on above: Order Comment: Crite brittaney for reflexing a culture was not met. Please call the lab at [phone] within 24 hours of collection time if culture is needed Performed By: #### 3 0965 #### [facility] [address] [place] [address], [place] Hemoglobin Ql (U) SMALL Abnormal NEGATIVE The [facility] Comment on above: Order Comment: Crite brittaney for reflexing a culture was not met. Please call the lab at [phone] within 24 hours of collection time if culture is needed Performed By: #### 3 0965 #### [facility] [address] [place] [address], [place] KETONE Negative Normal NEGATIVE The [facility] Comment on above: Order Comment: Crite brittaney for reflexing a culture was not met. Please call the lab at [phone] within 24 hours of collection time if culture is needed Performed By: #### 3 0965 #### [facility] [address] [place] [address], [place] LEUK BEV Negative Normal NEGATIVE The [facility] Comment on above: Order Comment: Crite brittaney for reflexing a culture was not met. Please call the lab at [phone] within 24 hours of collection time if culture is needed Performed By: #### 3 0965 #### [facility] [address] [place] [address], [place] Nitrite Ql (U) Negative Normal NEGATIVE The [facility] Comment on above: Order Comment: Crite brittaney for reflexing a culture was not met. Please call the lab at [phone] within 24 hours of collection time if culture is needed Performed By: #### 3 0965 #### [facility] [address] pH (U) 6.0 [pH] Normal 5.0-8.0 The [facility] Comment on above: Order Comment: Crite brittaney for reflexing a culture was not met. Please call the lab at [phone] within 24 hours of collection time if culture is needed Performed By: #### 3 0965 #### [facility] [address] Protein Ql (U) Negative Normal NEGATIVE The [facility] Comment on above: Order Comment: Crite brittaney for reflexing a culture was not met. Please call the lab at [phone] within 24 hours of collection time if culture is needed Performed By: #### 3 0965 #### [facility] [address] RBC 3-5 Abnormal NONE SEEN The [facility] Comment on above: Order Comment: Crite brittaney for reflexing a culture was not met. Please call the lab at [phone] within 24 hours of collection time if culture is needed Performed By: #### 3 0965 #### [facility] [address] SPEC GRAV 1.011 Low 1.015-1.020 The [facility] Comment on above: Order Comment: Crite brittaney for reflexing a culture was not met. Please call the lab at [phone] within 24 hours of collection time if culture is needed Performed By: #### 3 0965 #### [facility] [address] [place] [address], [facility] WBC UA 0-2 Abnormal NONE SEEN The [facility] Comment on above: Order Comment: Crite brittaney for reflexing a culture was not met. Please call the lab at [phone] within 24 hours of collection time if culture is needed Performed By: #### 3 0965 #### [facility] [address] [place] [address], [facility] URINE MICROSCOPIC ONLYon BACTERIA NONE SEEN Normal NONE SEEN The [facility] Comment on above: Performed By: #### U MICRO, ERUR ####[facility] [address] [place] [address]Dr. Arnoldo Taylor Bacteria identified Cx Nom (U) NOT INDICATED Normal The [facility] Comment on above: Performed By: #### U MICRO, ERUR ####[facility] [address] [place] [address]Dr. Arnoldo Taylor CAST NONE SEEN Normal NONE SEEN The [facility] Comment on above: Performed By: #### U MICRO, ERUR ####[facility] [address] [place] [address]Dr. Arnoldo Taylor Crystals LM Nom (Urine sed) NONE SEEN Normal NONE SEEN The [facility] Comment on above: Performed By: #### U MICRO, ERUR ####[facility] [address] [place] [address]Dr. Arnoldo Taylor Epithelial cells LM Ql (Urine sed) RARE Normal NONE SEEN /RARE The [facility] Comment on above: Performed By: #### U MICRO, ERUR ####[facility] [address]cl[address] [place] [address]Dr. Lynettelan Brandon MUCOUS NONE SEEN Normal NONE SEEN The [facility] Comment on above: Performed By: #### U MICRO, ERUR ####[facility] [address] [place] [address]Dr. Arnoldo Taylor RBC 0-2 Normal 0-2 [facility] Comment on above: Performed By: #### U MICRO, ERUR ####[facility] [address] [place] [address]Dr. Arnoldo Taylor WBC NONE SEEN Normal NONE SEEN [facility] Comment on above: Performed By: #### U MICRO, ERUR ####[facility] [address] [place] [address]Dr. Arnoldo Taylor XR CHEST 1 Von 11-21-2021 XR CHEST 1 V Normal [facility] XR FEMUR LTon 11-21-2021 XR FEMUR LT Normal [facility] XR TIB_FIB LT 2Von 2 XR TIB_FIB LT 2V Normal The [facility] HIP LEFT 1 OR 2 VWS WITH PEL VISon 11-19-2021 HIP LEFT 1 OR 2 VWS WITH PELVIS [facility] Department of Radiology [address] [place] [address] ======== Patient Name: MYRANDA YANES : 1940 Sex: F Age: Race: White Pt. Location: Patient Status: D Ordered Date: 11/19/2021 9:35:00 AM Completed Date: 11/19/2021 09:39 AM Requesting Provider: MASON RUIZ Attending Provider: MASON RUIZ Report Copy To: Signs & Symptoms: Z48.89 Encounter for other specified surgical aftercare I10 History: [place] Comments: Evaluate Exam: HIP LEFT 1 OR [...] displaced. Electronically signed: Liane Wright. Transcribed by: [email or web address], User Resident: Electronically Signed by: LIANE WRIGHT @ 11/22/2021 02:59 PM Normal The [facility] Comment on above: Order Comment: Crite brittaney for reflexing a culture was not met. Please call the lab at [phone] within 24 hours of collection time if culture is needed POC SARS COV2 ANTIGEN NEGATI VEon 11-12-2021 POC SARS COV2 ANTIGEN NEG Negative Normal NEGATIVE The [facility] Comment on above: Result Comment: Nega tive [...] antigen from SARS-CoV-2 in direct nasopharyngeal swab ([employer]) specimens from individuals who are suspected of [...] Accreditation. Performed By: #### 3 2044 #### [place] [address] [address] POC GLUCOSE LABon 11-11-2021 Glucose [Mass/Vol] 130 mg/dL High 70-100 The [facility] Comment on above: Performed By: #### 3 1595 #### [facility] [address] [place] [address], [facility] Glucose [Mass/Vol] 125 mg/dL High 70-100 The [facility] Comment on above: Performed By: #### 8 5499 #### [facility] [address] [place] [address], [facility] CBC W/DIFFon 11-10-2021 ABS IMM GRANS 0.0 10*3/uL Normal 0.0-0.2 The [facility] Comment on above: Order Comment: No: D o not add to previous draw Performed By: #### 5 0608 #### [facility] [address] [facility] [place] [address], [facility] ABS NEUTROPHILS 4.0 10*3/uL Normal 1.6-7.6 The [facility] Comment on above: Order Comment: No: D o not add to previous draw Performed By: #### 5 0608 #### [facility] [address] [facility] [place] [address], [facility] Basophils (Bld) [#/Vol] 0.0 10*3/uL Normal 0.0-0.2 The [facility] Comment on above: Order Comment: No: D o not add to previous draw Performed By: #### 5 0608 #### [facility] [address] [facility] [place] [address], [facility] Basophils/100 WBC (Bld) 0.1 % Normal 0.0-1.0 The [facility] Comment on above: Order Comment: No: D o not add to previous draw Performed By: #### 5 0608 #### [facility] [address] [facility] [place] [address], [facility] Eosinophils (Bld) [#/Vol] 0.2 10*3/uL Normal 0.0-0.5 The [facility] Comment on above: Order Comment: No: D o not add to previous draw Performed By: #### 5 0608 #### [facility] [address] [place] [address], [facility] Eosinophils/100 WBC (Bld) 2.7 % Normal 0.0-6.0 The [facility] Comment on above: Order Comment: No: D o not add to previous draw Performed By: #### 5 0608 #### [facility] [address] [place] [address], [facility] Erythrocyte distribution width (RBC) [Ratio] 12.6 % Normal 11.5-15.0 The [facility] Comment on above: Order Comment: No: D o not add to previous draw Performed By: #### 5 0608 #### [facility] [address] [facility] [place] [address], [facility] Hematocrit (Bld) [Volume fraction] 23.7 % Low 36.0-45.0 The [facility] Comment on above: Order Comment: No: D o not add to previous draw Performed By: #### 5 0608 #### [facility] [address] [facility] [place] [address], [facility] Hemoglobin (Bld) [Mass/Vol] 8.1 g/dL Low 12.0-15.0 [facility] Comment on above: Order Comment: No: D o not add to previous draw Performed By: #### 5 0608 #### [facility] [address] [place] [address], [facility] IMMATURE GRANS 0.4 % Normal 0.0-1.0 The [facility] Comment on above: Order Comment: No: D o not add to previous draw Performed By: #### 5 0608 #### [facility] [address] [place] [id number], [facility] Lymphocytes (Bld) [#/Vol] 2.4 10*3/uL Normal 1.2-4.0 The [facility] Comment on above: Order Comment: No: D o not add to previous draw Performed By: #### 5 0608 #### [facility] [address] [facility] [place] [address], [facility] Lymphocytes/100 WBC (Bld) 31.4 % Normal 20.0-45.0 The [facility] Comment on above: Order Comment: No: D o not add to previous draw Performed By: #### 5 0608 #### [facility] [address] [place] [address], [facility] MCH (RBC) [Entitic mass] 31.4 pg Normal 27.0-33.0 The [facility] Comment on above: Order Comment: No: D o not add to previous draw Performed By: #### 5 0608 #### [facility] [address] MCHC (RBC) [Mass/Vol] 34.2 g/dL Normal 32.0-35.0 The [facility] Comment on above: Order Comment: No: D o not add to previous draw Performed By: #### 5 0608 #### [facility] [address] [facility] [place] [address], [facility] MCV (RBC) [Entitic vol] 91.9 fL Normal 82.0-98.0 The [facility] Comment on above: Order Comment: No: D o not add to previous draw Performed By: #### 5 0608 #### [facility] [address] [place] [address], [facility] Monocytes (Bld) [#/Vol] 1.1 10*3/uL High 0.1-1.0 The [facility] Comment on above: Order Comment: No: D o not add to previous draw Performed By: #### 5 0608 #### [facility] [address] [place] [address], [facility] MONOS 13.5 % High 5.0-12.0 [facility] Comment on above: Order Comment: No: D o not add to previous draw Performed By: #### 5 0608 #### [facility] [address] [place] [id number], [facility] Neutrophils/100 WBC (Bld) 51.9 % Normal 40.0-72.0 The [facility] Comment on above: Order Comment: No: D o not add to previous draw Performed By: #### 5 0608 #### [facility] [address] [place] [id number], [facility] Nucleated RBC/100 WBC (Bld) [Ratio] 0 % Normal 0-0 The [facility] Comment on above: Order Comment: No: D o not add to previous draw Performed By: #### 5 0608 #### [facility] [address] [place] [id number], [facility] PLAT CNT 131 10*3/uL Low 150-400 The [facility] Comment on above: Order Comment: No: D o not add to previous draw Performed By: #### 5 0608 #### [facility] [address] [facility] [place] [address], [facility] RBC (Bld) [#/Vol] 2.58 10*6/uL Low 3.80-5.[address] [facility] Comment on above: Order Comment: No: D o not add to previous draw Performed By: #### 5 0608 #### [facility] [address] [facility]. [place] [id number], [place] WBC (Bld) [#/Vol] 7.78 10*3/uL Normal 4.00-10.[address] [facility] Comment on above: Order Comment: No: D o not add to previous draw Performed By: #### 5 0608 #### [facility] [address] [place] [id number], [facility] POC GLUCOSE LABon 11-10-2021 Glucose [Mass/Vol] 128 mg/dL High 70-100 [facility] Comment on above: Performed By: #### 3 4 #### [facility] [address] [place] [address], [place] Glucose [Mass/Vol] 107 mg/dL High 70-100 [facility] Comment on above: Performed By: #### 3 2043 #### [facility] [address] [place] [address], [place] Glucose [Mass/Vol] 185 mg/dL High 70-100 [facility] Comment on above: Performed By: #### 8 5499 #### [facility] [address] [place] [address], [place] Glucose [Mass/Vol] 111 mg/dL High 70-100 The [facility] Comment on above: Performed By: #### 8 5499 #### [facility] [address] [place] [address], [place] POC GLUCOSE LABon 11-09-2021 Glucose [Mass/Vol] 100 mg/dL Normal 70-100 The [facility] Comment on above: Performed By: #### 3 1595 #### [facility] [address] [place] [address], [place] Glucose [Mass/Vol] 148 mg/dL High 70-100 The [facility] Comment on above: Performed By: #### 3 1595 #### [facility] [address] [place] [address], [place] Glucose [Mass/Vol] 112 mg/dL High 70-100 The [facility] Comment on above: Performed By: #### 3 1595 #### [facility] [address] [place] [address], [place] BASIC METABOLIC PANELon 07- Calcium [Mass/Vol] 7.7 mg/dL Low 8.6-10.3 The [facility] Comment on above: Order Comment: No: D o not add to previous draw Performed By: #### 5 0608 #### [facility] [address] [place] [address], [place] Chloride [Moles/Vol] 105 mmol/L Normal 98-107 The [facility] Comment on above: Order Comment: No: D o not add to previous draw Performed By: #### 5 0608 #### [facility] [address] [place] [address], [place] CO2 [Moles/Vol] 24 mmol/L Normal 21-31 The [facility] Comment on above: Order Comment: No: D o not add to previous draw Performed By: #### 5 0608 #### [facility] [address] [place] [address], [place] Creatinine [Mass/Vol] 0.90 mg/dL Normal 0.60-1.20 The [facility] Comment on above: Order Comment: No: D o not add to previous draw Performed By: #### 5 0608 #### [facility] [address] [place] [address], [place] GFR/1.73 sq M.predicted among blacks MDRD (S/P/Bld) [Vol rate/Area] mL/min/{1.73_m2} Normal >60 The [facility] Comment on above: Order Comment: No: D o not add to previous draw Result Comment: Calc ulation may not be valid for patients over 70 years Performed By: #### 5 0608 #### [facility] [address] [place] [address], [place] GFR/1.73 sq M.predicted among non-blacks MDRD (S/P/Bld) [Vol rate/Area] mL/min/{1.73_m2} Normal >60 The [facility] Comment on above: Order Comment: No: D o not add to previous draw Result Comment: Calc ulation may not be valid for patients over 70 years Performed By: #### 5 0608 #### [facility] [address] [place] [address], [facility] Glucose [Mass/Vol] 104 mg/dL High 70-100 The [facility] Comment on above: Order Comment: No: D o not add to previous draw Performed By: #### 5 0608 #### [facility] [address] [place] [address], [facility] Potassium [Moles/Vol] 3.7 mmol/L Normal 3.5-5.1 The [facility] Comment on above: Order Comment: No: D o not add to previous draw Performed By: #### 5 0608 #### [facility] [address] [place] [address], [facility] Sodium [Moles/Vol] 137 mmol/L Normal 136-145 The [facility] Comment on above: Order Comment: No: D o not add to previous draw Performed By: #### 5 0608 #### [facility] [address] [place] [address], [facility] Urea nitrogen [Mass/Vol] 26 mg/dL High 7-25 The [facility] Comment on above: Order Comment: No: D o not add to previous draw Performed By: #### 5 0608 #### [facility] [address] [facility] [place] [address], [facility] CBC W/DIFFon 11-08-2021 ABS IMM GRANS 0.0 10*3/uL Normal 0.0-0.2 The [facility] Comment on above: Order Comment: No: D o not add to previous draw Performed By: #### 5 0103 #### [facility] [address] [place] [address], [facility] ABS NEUTROPHILS 5.0 10*3/uL Normal 1.6-7.6 The [facility] Comment on above: Order Comment: No: D o not add to previous draw Performed By: #### 5 0103 #### [facility] [address] [place] [address], [facility] Basophils (Bld) [#/Vol] 0.0 10*3/uL Normal 0.0-0.2 The [facility] Comment on above: Order Comment: No: D o not add to previous draw Performed By: #### 5 0103 #### [facility] [address] [place] [address], [facility] Basophils/100 WBC (Bld) 0.1 % Normal 0.0-1.0 The [facility] Comment on above: Order Comment: No: D o not add to previous draw Performed By: #### 5 0103 #### [facility] [address] [place] [address], [facility] Eosinophils (Bld) [#/Vol] 0.2 10*3/uL Normal 0.0-0.5 The [facility] Comment on above: Order Comment: No: D o not add to previous draw Performed By: #### 5 0103 #### [facility] [address] [place] [address], [facility] Eosinophils/100 WBC (Bld) 1.7 % Normal 0.0-6.0 The [facility] Comment on above: Order Comment: No: D o not add to previous draw Performed By: #### 5 0103 #### [facility] [address] [place] [address], [facility] Erythrocyte distribution width (RBC) [Ratio] 13.5 % Normal 11.5-15.0 The [facility] Comment on above: Order Comment: No: D o not add to previous draw Performed By: #### 5 0103 #### [facility] [address] [place] [id number], [facility] Hematocrit (Bld) [Volume fraction] 27.0 % Low 36.0-45.0 The [facility] Comment on above: Order Comment: No: D o not add to previous draw Performed By: #### 5 0103 #### [facility] [address] [place] [address], [facility] Hemoglobin (Bld) [Mass/Vol] 8.8 g/dL Low 12.0-15.0 The [facility] Comment on above: Order Comment: No: D o not add to previous draw Performed By: #### 5 0103 #### [facility] [address] [place] [address], [facility] IMM PLATELET FRAC 1.1 % Normal 0.8-6.[address] [facility] Comment on above: Order Comment: No: D o not add to previous draw Performed By: #### 5 0103 #### [facility] [address] [facility] [place] [address], [facility] IMMATURE GRANS 0.3 % Normal 0.0-1.0 The [facility] Comment on above: Order Comment: No: D o not add to previous draw Performed By: #### 5 0103 #### [facility] [address] [facility] [place] [address], [facility] Lymphocytes (Bld) [#/Vol] 2.3 10*3/uL Normal 1.2-4.0 The [facility] Comment on above: Order Comment: No: D o not add to previous draw Performed By: #### 5 0103 #### [facility] [address] [facility] [place] [address], [facility] Lymphocytes/100 WBC (Bld) 26.4 % Normal 20.0-45.0 The [facility] Comment on above: Order Comment: No: D o not add to previous draw Performed By: #### 5 0103 #### [facility] [address] [place] [address], [facility] MCH (RBC) [Entitic mass] 31.3 pg Normal 27.0-33.0 The [facility] Comment on above: Order Comment: No: D o not add to previous draw Performed By: #### 5 0103 #### [facility] [address] [facility] MCHC (RBC) [Mass/Vol] 32.6 g/dL Normal 32.0-35.0 The [facility] Comment on above: Order Comment: No: D o not add to previous draw Performed By: #### 5 0103 #### [facility] [address] [place] [id number], [facility] MCV (RBC) [Entitic vol] 96.1 fL Normal 82.0-98.0 The [facility] Comment on above: Order Comment: No: D o not add to previous draw Performed By: #### 5 0103 #### [facility] [address] [facility] [place] [address], [facility] Monocytes (Bld) [#/Vol] 1.2 10*3/uL High 0.1-1.0 The [facility] Comment on above: Order Comment: No: D o not add to previous draw Performed By: #### 5 0103 #### [facility] [address] [facility] [place] [address], [facility] MONOS 13.9 % High 5.0-12.0 The [facility] Comment on above: Order Comment: No: D o not add to previous draw Performed By: #### 5 0103 #### [facility] [address] [facility] [place] [address], [facility] Neutrophils/100 WBC (Bld) 57.6 % Normal 40.0-72.0 The [facility] Comment on above: Order Comment: No: D o not add to previous draw Performed By: #### 5 0103 #### [facility] [address] [facility] [place] [address], [facility] Nucleated RBC/100 WBC (Bld) [Ratio] 0 % Normal 0-0 The [facility] Comment on above: Order Comment: No: D o not add to previous draw Performed By: #### 5 0103 #### [facility] [address] [place] [address], [place] PLAT CNT 101 10*3/uL Low 150-400 The [facility] Comment on above: Order Comment: No: D o not add to previous draw Performed By: #### 5 0103 #### [facility] [address] [place] [address], [place] RBC (Bld) [#/Vol] 2.81 10*6/uL Low 3.80-5.[address] [facility] Comment on above: Order Comment: No: D o not add to previous draw Performed By: #### 5 3 #### [facility] [address] [place] [address], [place] WBC (Bld) [#/Vol] 8.71 10*3/uL Normal 4.00-10.[address] [facility] Comment on above: Order Comment: No: D o not add to previous draw Performed By: #### 5 3 #### [facility] [address] [place] [address], [facility] POC GLUCOSE LABon 11-08-2021 Glucose [Mass/Vol] 92 mg/dL Normal 70-100 The [facility] Comment on above: Performed By: #### 8 5499 #### [facility] [address] [place] [address], [place] Glucose [Mass/Vol] 102 mg/dL High 70-100 The [facility] Comment on above: Performed By: #### 3 2044 #### [facility] [address] [place] [address], [place] Glucose [Mass/Vol] 108 mg/dL High 70-100 The [facility] Comment on above: Performed By: #### 8 5499 #### [facility] [address] [place] [address], [place] Glucose [Mass/Vol] 125 mg/dL High 70-100 The [facility] Comment on above: Performed By: #### 8 5499 #### [facility] [address] [place] [address], [facility] BASIC METABOLIC PANELon 07-0 -2021 Calcium [Mass/Vol] 7.6 mg/dL Low 8.6-10.3 [facility] Comment on above: Order Comment: Evalu ate Performed By: #### 4 1000, 37782, 47275 ####[facility] [id number], [place] Chloride [Moles/Vol] 107 mmol/L Normal 98-107 The [facility] Comment on above: Order Comment: Evalu ate Performed By: #### 4 1000, 31308, 59785 ####[facility] [place] [address], [place] CO2 [Moles/Vol] 27 mmol/L Normal 21-31 [facility] Comment on above: Order Comment: Evalu ate Performed By: #### 4 1000, 35210, 81413 ####[facility] [place] [address], [place] Creatinine [Mass/Vol] 0.83 mg/dL Normal 0.60-1.20 The [facility] Comment on above: Order Comment: Evalu ate Performed By: #### 4 1000, 93085, 44002 ####[facility] [place] [address], [place] GFR/1.73 sq M.predicted among blacks MDRD (S/P/Bld) [Vol rate/Area] mL/min/{1.73_m2} Normal >60 The [facility] Comment on above: Order Comment: Evalu ate Result Comment: Calc ulation may not be valid for patients over 70 years Performed By: #### 4 1000, 91537, 08168 ####[facility] [place] [address], [place] GFR/1.73 sq M.predicted among non-blacks MDRD (S/P/Bld) [Vol rate/Area] mL/min/{1.73_m2} Normal >60 The [facility] Comment on above: Order Comment: Evalu ate Result Comment: Calc ulation may not be valid for patients over 70 years Performed By: #### 4 1000, 02923, 62794 ####[facility] [place] [address], [place] Glucose [Mass/Vol] 113 mg/dL High 70-100 The [facility] Comment on above: Order Comment: Evalu ate Performed By: #### 4 1000, 61342, 58626 ####[facility] [place] [address], [place] Potassium [Moles/Vol] 3.8 mmol/L Normal 3.5-5.1 The [facility] Comment on above: Order Comment: Evalu ate Performed By: #### 4 1000, 23920, 82925 ####[facility] [place] [address], [place] Sodium [Moles/Vol] 140 mmol/L Normal 136-145 The [facility] Comment on above: Order Comment: Evalu ate Performed By: #### 4 1000, 90229, 02989 ####[facility] [place] [address], [place] Urea nitrogen [Mass/Vol] 24 mg/dL Normal 7-25 The [facility] Comment on above: Order Comment: Evalu ate Performed By: #### 4 1000, 62914, 52349 ####[facility] [place] [address], [place] CBC COMPLETE BLOOD COUNTon 0 - Erythrocyte distribution width (RBC) [Ratio] 13.0 % Normal 11.5-15.0 The [facility] Comment on above: Order Comment: No: D o not add to previous draw Performed By: #### 5 0608 #### [facility] [address] [place] [address], [place] Hematocrit (Bld) [Volume fraction] 24.0 % Low 36.0-45.0 The [facility] Comment on above: Order Comment: No: D o not add to previous draw Performed By: #### 5 0608 #### [facility] [address] [place] [address], [facility] Hemoglobin (Bld) [Mass/Vol] 7.9 g/dL Low 12.0-15.0 The [facility] Comment on above: Order Comment: No: D o not add to previous draw Performed By: #### 5 0608 #### [facility] [address] [place] [id number], [facility] MCH (RBC) [Entitic mass] 30.5 pg Normal 27.0-33.0 The [facility] Comment on above: Order Comment: No: D o not add to previous draw Performed By: #### 5 0608 #### [facility] [address] [place] [address], [facility] MCHC (RBC) [Mass/Vol] 32.9 g/dL Normal 32.0-35.0 The [facility] Comment on above: Order Comment: No: D o not add to previous draw Performed By: #### 5 0608 #### [facility] [address] [place] [address], [facility] MCV (RBC) [Entitic vol] 92.7 fL Normal 82.0-98.0 The [facility] Comment on above: Order Comment: No: D o not add to previous draw Performed By: #### 5 0608 #### [facility] [address] [place] [address], [facility] Nucleated RBC/100 WBC (Bld) [Ratio] 0 % Normal 0-0 The [facility] Comment on above: Order Comment: No: D o not add to previous draw Performed By: #### 5 0608 #### [facility] [address] [place] [id number], [facility] PLAT CNT 114 10*3/uL Low 150-400 The [facility] Comment on above: Order Comment: No: D o not add to previous draw Performed By: #### 5 0608 #### [facility] [address] [place] [address], [facility] RBC (Bld) [#/Vol] 2.59 10*6/uL Low 3.80-5.00 [facility] Comment on above: Order Comment: No: D o not add to previous draw Performed By: #### 5 0608 #### [facility] [address] [place] [id number], [facility] WBC (Bld) [#/Vol] 10.96 10*3/uL High 4.00-10.60 [facility] Comment on above: Order Comment: No: D o not add to previous draw Performed By: #### 5 0608 #### [facility] [address] [place] [id number], [facility] HEMOGLOBINon 11-07-2021 Hemoglobin (Bld) [Mass/Vol] 8.6 g/dL Low 12.0-15.0 [facility] Comment on above: Order Comment: No: D o not add to previous draw Performed By: #### 5 0608 #### [facility] [address] [place] [address], [facility] Hemoglobin (Bld) [Mass/Vol] 7.6 g/dL Low 12.0-15.0 The [facility] Comment on above: Order Comment: No: D o not add to previous draw Performed By: #### 5 0608 #### [facility] [address] [place] [id number], [facility] MAGNESIUM BLOODon 11-07-2021 Magnesium [Mass/Vol] 1.6 mg/dL Low 1.9-2.7 The [facility] Comment on above: Order Comment: Evalu ate Performed By: #### 4 1000, [id number], [id number] ####[facility] Operative Reporton Operative Report MR#: [id number] I [facility] Pt. Name: Myranda Yanes Room #: [id number] Discharge Date: Birthdate: 1940 OPERATIVE REPORT DATE OF SURGERY: 11/06/2021 SURGEON: Jaskaran Beal M.D. ASSISTANTS: 1. Ankit Tobias M.D. 2. Jus Yancey M.D. 3. Manjinder Davis M.D. PREOPERATIVE DIAGNOSIS: Left intertrochanteric fracture. POSTOPERATIVE DIAGNOSIS: Left intertrochanteric fracture. PROCEDURE: Left cephalomedullary nail. ANESTHESIA: General. BLOOD LOSS: 100 mL. FLUIDS: Per anesthesia records. SPECIMENS: None. COMPLICATIONS: None. IMPLANTS: [place] Gamma3 short cephalomedullary nail 125 degree, 11 [...] suite where she was moved to the Andrews table. The patient was put to sleep with general anesthesia. The patient was properly placed and secured onto the Andrews table. The patient was prepped and draped in appropriate sterile fashion. Preoperative antibiotics were given per protocol. Reduction was performed by pulling the patient's leg out to length using Andrews table, appropriate reduction was achieved and agreed [...] Tobias MD Date Trans: 11/07/2021 03:00 A/lalo [id number] cc: Whitney Goodman M.D. [address] [place] [id number] Normal The [facility] PHOSPHORUS BLOODon 2 Phosphate [Mass/Vol] 2.6 mg/dL Normal 2.5-5.0 The [facility] Comment on above: Order Comment: Evalu ate Performed By: #### 4 1000, 01301, 90895 ####[facility] [place] [address], [facility] POC GLUCOSE LABon 11-07-2021 Glucose [Mass/Vol] 120 mg/dL High 70-100 The [facility] Comment on above: Performed By: #### 3 2044 #### [facility] [address] [facility] [place] [address], [place] Glucose [Mass/Vol] 113 mg/dL High 70-100 The [facility] Comment on above: Performed By: #### 8 5499 #### [facility] [address] [facility] [place] [address], [place] Glucose [Mass/Vol] 134 mg/dL High 70-100 The [facility] Comment on above: Performed By: #### 3 4 #### [facility] [address] [facility] [place] [address], [place] Glucose [Mass/Vol] 107 mg/dL High 70-100 The [facility] Comment on above: Performed By: #### 3 1595 #### [facility] [address] [place] [address], [place] RBC'S 1 UNITon 11-07-2021 CROSSMATCH INTERP 1 COMP Normal [facility] Comment on above: Order Comment: Evalu ate Performed By: #### 8 6001 ####[facility] [facility] [place] [address], [place] PRODUCT CODE 1 E0336 Normal The [facility] Comment on above: Order Comment: Evalu ate Performed By: #### 8 6001 ####[facility] [facility].[address] PRODUCT STATUS 1 PT Normal The [facility] Comment on above: Order Comment: Evalu ate Result Comment: Resu lt changed by IF on 11/07/2021 12:29. The previous value was XM. Result changed by IF on 11/08/2021 00:30. The previous value was IS. Performed By: #### 8 6001 ####[facility] [facility].[address] UNIT ABO 1 A Normal The [facility] Comment on above: Order Comment: Evalu ate Performed By: #### 8 6001 ####[facility] [facility].[address] UNIT ID 1 [id number] Normal The [facility] Comment on above: Order Comment: Evalu ate Performed By: #### 8 6001 ####[facility] [facility].[address] UNIT RH 1 Positive Normal The [facility] Comment on above: Order Comment: Evalu ate Performed By: #### 8 6001 ####[place] [address] [address] lactate w/reflex #2on 2021 Lactate [Moles/Vol] 2.1 mmol/L Normal .5-2.[address] [facility] Comment on above: Order Comment: Refle xed from accession #[id number] Time:2249RESULT >=2.0; ADDITIONAL LACTATE ORDERED IN 4 HRS PER SEPSIS PROTOCOL Performed By: #### 3 1415 ####[address] lactate w/reflex #3on 2021 Lactate [Moles/Vol] 1.0 mmol/L Normal .5-2.[address] [facility] Comment on above: Order Comment: Hemog lobin < 9 gm/dl with known cardiac or cerebrovascular disease Performed By: #### 8 6002 #### [facility] [address] *BLOOD CULTUREon 11-06-2021 *BLOOD CULTURE Clinical Report: (D) Specimen: BLOOD CULTURE Collected: 11/06/2021 18:49 Status: Final Last Updated: 11/12/2021 07:40 (1) Rtwrist 1848 CULT RES (Final) No Growth Day 5 Normal [facility] Comment on above: Order Comment: Rtwri st 1848 Performed By: #### 3 1595 #### [facility] [address] *BLOOD CULTURE Clinical Report: (D) Specimen: BLOOD CULTURE Collected: 11/06/2021 18:49 Status: Final Last Updated: 11/12/2021 07:40 (1) Lwrist 1845 CULT RES (Final) No Growth Day 5 Normal [facility] Comment on above: Order Comment: Lwris t 1845 Performed By: #### 3 1595 #### [facility] [address] *MRSA/MSSA DNA NASALon 11-06 *MRSA/MSSA DNA NASAL Clinical Report: (D) Specimen: NASAL SWAB Collected: 11/06/2021 11:50 Status: Final Last Updated: 11/07/2021 11:10 MSSA DNA (Final) Negative MRSA DNA (Final) Negative Normal [facility] Comment on above: Performed By: #### 3 1595 #### [facility] [address] *URINE CULTUREon 11-06-2021 *URINE CULTURE Clinical Report: (D) Specimen/Source: URINE/CLEAN VOID URINE Collected: 11/06/2021 05:02 Status: Final Last Updated: 11/08/2021 07:31 ISO (Final) Escherichia coli >100,000 Cfu/Ml ISOLATE: Escherichia coli -- GIBSON (mcg/ml) AMP./SULBAC (AMS) 4/2 Susceptible AMPICILLIN (AM) <=4 Susceptible AZTREONAM (AZM) <=2 Susceptible CEFAZOLIN (CZ) <=1 Susceptible CEFTRIAXONE (MAT[employer]) <=1 Susceptible CIPROFLOXACIN (CIP) <=0.25 Susceptible ESBL (-/+) (ESBL) Negative GENTAMICIN (GM) <=2 Susceptible NITROFURANTOIN (FT) <=16 Susceptible PIP/TAZO (TZP) <=2/4 Susceptible TOBRAMYCIN (TOB) <=2 Susceptible TRIMETH/SULFA (SXT) <=0.5/9.5 Susceptible Normal The [facility] Comment on above: Performed By: #### 5 0608 #### [address] APTTon 11-06-2021 aPTT Coag (Bld) [Time] 28.7 s Normal 25.0-35.0 The [facility] Comment on above: Result Comment: ALL RESULTS [...] PURPOSE. Performed By: #### 5 0608 #### [address] CBC W/DIFFon 11-06-2021 ABS IMM GRANS 0.0 10*3/uL Normal 0.0-0.2 The [facility] Comment on above: Performed By: #### 5 0608 #### [facility] [address] ABS NEUTROPHILS 7.6 10*3/uL Normal 1.6-7.6 The [facility] Comment on above: Performed By: #### 5 0608 #### [facility] [address] [place] [id number], [facility] Basophils (Bld) [#/Vol] 0.0 10*3/uL Normal 0.0-0.2 The [facility] Comment on above: Performed By: #### 5 0608 #### [facility] [address] [place] [address], [facility] Basophils/100 WBC (Bld) 0.1 % Normal 0.0-1.0 The [facility] Comment on above: Performed By: #### 5 0608 #### [facility] [address] [facility] [place] [address], [facility] Eosinophils (Bld) [#/Vol] 0.0 10*3/uL Normal 0.0-0.5 The [facility] Comment on above: Performed By: #### 5 0608 #### [facility] [address] [facility] [place] [address], [facility] Eosinophils/100 WBC (Bld) 0.0 % Normal 0.0-6.0 The [facility] Comment on above: Performed By: #### 5 0608 #### [facility] [address] [facility]. [address] Erythrocyte distribution width (RBC) [Ratio] 12.7 % Normal 11.5-15.0 The [facility] Comment on above: Performed By: #### 5 0608 #### [facility] [address] [facility] [place] [address], [facility] Hematocrit (Bld) [Volume fraction] 38.2 % Normal 36.0-45.0 The [facility] Comment on above: Performed By: #### 5 0608 #### [facility] [address] [facility] [place] [address], [facility] Hemoglobin (Bld) [Mass/Vol] 12.4 g/dL Normal 12.0-15.0 The [facility] Comment on above: Performed By: #### 5 0608 #### [facility] [address] IMMATURE GRANS 0.4 % Normal 0.0-1.0 The [facility] Comment on above: Performed By: #### 5 0608 #### [facility] [address] [place] [address], [facility] Lymphocytes (Bld) [#/Vol] 1.1 10*3/uL Low 1.2-4.0 The [facility] Comment on above: Performed By: #### 5 0608 #### [facility] [address] [place] [address], [facility] Lymphocytes/100 WBC (Bld) 11.2 % Low 20.0-45.0 The [facility] Comment on above: Performed By: #### 5 0608 #### [facility] [address] [place] [address], [facility] MCH (RBC) [Entitic mass] 30.0 pg Normal 27.0-33.0 The [facility] Comment on above: Performed By: #### 5 0608 #### [facility] [address] [place] [address], [facility] MCHC (RBC) [Mass/Vol] 32.5 g/dL Normal 32.0-35.0 The [facility] Comment on above: Performed By: #### 5 0608 #### [facility] [address] [place] [address], [facility] MCV (RBC) [Entitic vol] 92.5 fL Normal 82.0-98.0 The [facility] Comment on above: Performed By: #### 5 0608 #### [facility] [address] [place] [address], [facility] Monocytes (Bld) [#/Vol] 1.0 10*3/uL Normal 0.1-1.0 The [facility] Comment on above: Performed By: #### 5 0608 #### [facility] [address] [place] [id number], [facility] MONOS 9.8 % Normal 5.0-12.0 The [facility] Comment on above: Performed By: #### 5 0608 #### [facility] [address] [facility] [place] [place] [address], [facility] Neutrophils/100 WBC (Bld) 78.5 % High 40.0-72.0 The [facility] Comment on above: Performed By: #### 5 0608 #### [facility] [address] [place] [address], [facility] Nucleated RBC/100 WBC (Bld) [Ratio] 0 % Normal 0-0 The [facility] Comment on above: Performed By: #### 5 0608 #### [facility] [address] [place] [address], [facility] PLAT CNT 149 10*3/uL Low 150-400 The [facility] Comment on above: Performed By: #### 5 0608 #### [facility] [address] [place] [address], [facility] RBC (Bld) [#/Vol] 4.13 10*6/uL Normal 3.80-5.[address] [facility] Comment on above: Performed By: #### 5 0608 #### [facility] [address] [place] [address], [facility] WBC (Bld) [#/Vol] 9.65 10*3/uL Normal 4.00-10.[address] [facility] Comment on above: Performed By: #### 5 0608 #### [place] [address], [facility] CHEST 1 [facility] 11-06-2021 CHEST 1 [facility] Department of Radiology [address] [place] [id number] ======== Patient Name: MYRANDA YANES : 1940 Sex: F Age: Race: White Pt. Location: [facility] Patient Status: E Ordered Date: 11/06/2021 4:50:00 [...] report. Electronically signed: Mandeep Alvarado. Transcribed by: [email or web address], User Resident: CHENTE MONSALVE Electronically Signed by: MANDEEP ALVARADO @ 11/06/2021 06:38 AM I personally read this/these film(s) with this resident Normal The [facility] Comment on above: Order Comment: Crite brittaney for reflexing a culture was not met. Please call the lab at [phone] within 24 hours of collection time if culture is needed COMP METABOLIC PANELon 11-06 Albumin [Mass/Vol] 3.9 g/dL Normal 3.5-5.7 The [facility] Comment on above: Performed By: #### 8 6002 #### [facility] [address] [place] [address], [place] ALKALINE PHOSPH 66 IU/L Normal 34-104 The [facility] Comment on above: Performed By: #### 8 6002 #### [facility] [address] [place] [address], [place] ALT [Catalytic activity/Vol] 9 U/L Normal 7-52 The [facility] Comment on above: Performed By: #### 8 6002 #### [facility] [address] [place] [address], [place] AST [Catalytic activity/Vol] 18 U/L Normal 13-39 The [facility] Comment on above: Performed By: #### 8 6002 #### [facility] [address] [place] [address], [place] Bilirubin [Mass/Vol] 0.8 mg/dL Normal 0.3-1.0 [facility] Comment on above: Performed By: #### 8 6002 #### [facility] [address] [place] [address], [place] Calcium [Mass/Vol] 9.0 mg/dL Normal 8.6-10.3 [facility] Comment on above: Performed By: #### 8 6002 #### [facility] [address] [place] [address], [place] Chloride [Moles/Vol] 102 mmol/L Normal 98-107 The [facility] Comment on above: Performed By: #### 8 6002 #### [facility] [address] [place] [address], [place] CO2 [Moles/Vol] 26 mmol/L Normal 21-31 The [facility] Comment on above: Performed By: #### 8 6002 #### [facility] [address] [place] [address], [place] Creatinine [Mass/Vol] 0.91 mg/dL Normal 0.60-1.20 The [facility] Comment on above: Performed By: #### 8 6002 #### [facility] [address] [place] [address], [facility] eGFR- non- 59 ml/min/1.73sq m Abnormal >60 The [facility] Comment on above: Result Comment: Calc ulation may not be valid for patients over 70 years Performed By: #### 8 6002 #### [facility] [address] [place] [address], [place] GFR/1.73 sq M.predicted among blacks MDRD (S/P/Bld) [Vol rate/Area] mL/min/{1.73_m2} Normal >60 The [facility] Comment on above: Result Comment: Calc ulation may not be valid for patients over 70 years Performed By: #### 8 6002 #### [facility] [address] [place] [address], [place] Glucose [Mass/Vol] 128 mg/dL High 70-[address] [facility] Comment on above: Performed By: #### 8 6002 #### [facility] [address] [place] [address], [place] Potassium [Moles/Vol] 3.8 mmol/L Normal 3.5-5.1 The [facility] Comment on above: Performed By: #### 8 6002 #### [facility] [address] [place] [address], [place] Protein [Mass/Vol] 7.3 g/dL Normal 6.0-8.3 The [facility] Comment on above: Performed By: #### 8 6002 #### [facility] [address] [place] [address], [place] Sodium [Moles/Vol] 139 mmol/L Normal 136-[address] [facility] Comment on above: Performed By: #### 8 6002 #### [address] [place] [address], [facility] Urea nitrogen [Mass/Vol] 20 mg/dL Normal 7-25 The [facility] Comment on above: Performed By: #### 8 6002 #### [address] BRAIN WO CONTRASTon 11-06 CT BRAIN WO CONTRAST [facility] Department of Radiology [address] [place] [phone] ======== Patient Name: MYRANDA YANES : 1940 Sex: F Age: Race: White Pt. Location: [facility] Patient Status: E Ordered Date: 11/06/2021 4:45:00 [...] report. Electronically signed: Mandeep Alvarado. Transcribed by: [email or web address], User Resident: CHENTE MONSALVE Electronically Signed by: MANDEEP ALVARADO @ 11/06/2021 06:14 AM I personally read this/these film(s) with this resident Normal The [facility] Comment on above: Order Comment: Crite brittaney for reflexing a culture was not met. Please call the lab at [phone] within 24 hours of collection time if culture is needed FEMUR LEFT 2 VWSon 2 FEMUR LEFT 2 VWS [facility] Department of Radiology [address] [place] [phone] ======== Patient Name: MYRANDA YANES : 1940 Sex: F Age: Race: White Pt. Location: [facility] Patient Status: E Ordered Date: 11/06/2021 4:55:00 [...] report. Electronically signed: Mandeep Alvarado. Transcribed by: [email or web address], User Resident: CHENTE MONSALVE Electronically Signed by: MANDEEP ALVARADO @ 11/06/2021 06:38 AM I personally read this/these film(s) with this resident Normal The [facility] Comment on above: Order Comment: FX HIP LEFT 1 OR 2 VWS WITH PEL VISon 11-06-2021 HIP LEFT 1 OR 2 VWS WITH PELVIS [facility] Department of Radiology [address] [place] [phone] ======== Patient Name: MYRANDA YANES : 1940 Sex: F Age: Race: White Pt. Location: [facility] Patient Status: I Ordered Date: 11/06/2021 6:50:00 [...] report. Electronically signed: Duarte Pollard. Transcribed by: [email or web address], User Resident: Electronically Signed by: DUARTE POLLARD @ 11/06/2021 03:16 PM Normal The [facility] Comment on above: Order Comment: Crite brittaney for reflexing a culture was not met. Please call the lab at [phone] within 24 hours of collection time if culture is needed LACTATE BLOODon 11-06-2021 Lactate [Moles/Vol] 3.3 mmol/L High .5-2.[address] [facility] Comment on above: Result Comment: M-CR ITICAL RESULT(S) REVIEWED, CALLED TO AND READ BACK BY HANK KAPOOR RN AT 0711 ON 11.06.21. Performed By: #### 1 0054 ####[place] [address] [place] [address], [facility] LACTATE WITH REFLEXon 2021 Lactate [Moles/Vol] 2.6 mmol/L High .5-2.[address] [facility] Comment on above: Order Comment: No: D o not add to previous draw Result Comment: M-KY EVIOUS CRITICAL RESULT 3.3 Performed By: #### 5 0608 #### [address] [place], [place] [id number] [place] [address] LIPASE BLOODon 11-06-2021 LIPASE 15 Units/L Normal The [facility] Comment on above: Performed By: #### 8 6002 #### [address] [place], [place] [id number] [place] [address] PELVIS 1 OR 2 VWSon 11-07-19 22 PELVIS 1 OR 2 VWS [facility] Department of Radiology [address] [place] [address] [phone] ======== Patient Name: MYRANDA YANES : 1940 Sex: F Age: Race: White Pt. Location: [facility] Patient Status: E Ordered Date: 11/06/2021 4:55:00 [...] report. Electronically signed: Mandeep Alvarado. Transcribed by: [email or web address], User Resident: CHENTE MONSALVE Electronically Signed by: MANDEEP ALVARADO @ 11/06/2021 06:38 AM I personally read this/these film(s) with this resident Normal The [facility] Comment on above: Order Comment: Crite brittaney for reflexing a culture was not met. Please call the lab at [phone] within 24 hours of collection time if culture is needed POC GLUCOSE EDon 11-06-2021 Glucose [Mass/Vol] 107 mg/dL High 70-[address] [facility] Comment on above: Performed By: #### 8 5499 #### [facility] [address] [place] [address], [facility] POC GLUCOSE LABon 11-06-2021 Glucose [Mass/Vol] 165 mg/dL High 70-100 The [facility] Comment on above: Performed By: #### 8 5499 #### [facility] [address] [place] [address], [facility] Glucose [Mass/Vol] 153 mg/dL High 70-[address] [facility] Comment on above: Performed By: #### 8 5499 #### [facility] [address] [place] [address], [facility] POC SARS COV2 IDon 2 SARS-CoV-2 (COVID-19) RNA JAMMIE+probe Ql (Unsp spec) Negative Normal NEGATIVE The [facility] Comment on above: Result Comment: ID N [...] Accreditation. Performed By: #### 3 1595 #### [facility] [address] PROTHROMBIN TIMEon 2 INR Coag (PPP) [Relative time] 1.01 {INR} Normal 0.91-1.16 The [facility] Comment on above: Result Comment: ACCC P [...] 1995;108:[id number]. Performed By: #### 5 0608 #### [facility] [address] [place] [address], [facility] PT Coag (PPP) [Time] 13.3 s Normal 12.3-14.8 The [facility] Comment on above: Result Comment: ALL RESULTS MUST BE INTERPRETED WITH RESPECT TO BLOOD DRAWING ARTIFACT OR DILUTION ERROR OF ANTICOAGULANT AT THE TIME OF SAMPLING. Performed By: #### 5 0608 #### [facility] [address] [facility] [address] TROPONIN-Ion 11-06-2021 Troponin I.cardiac [Mass/Vol] 0.00 ng/mL Normal 0.00-0.04 [facility] Comment on above: Result Comment: REFE RENCE RANGES: 0.00 - 0.04 ng/ml NORMAL 0.05 - 0.50 ng/ml INDETERMINATE > 0.50 ng/ml CONSISTENT WITH AN M.I. Performed By: #### 8 6002 #### [facility] [address] [facility] [place] [address], [facility] TYPE AND SCREENon 11-06-2021 ABO INTERPRETATION A Normal The [facility] Comment on above: Performed By: #### 6 2586 ####[facility] [facility].[address] RH INTERPRETATION Positive Normal The [facility] Comment on above: Performed By: #### 6 2586 ####[facility] URINALYSIS REFLEXon 11-07-19 22 Appearance (U) CLOUDY Abnormal CLEAR The [facility] Comment on above: Order Comment: Crite brittaney for reflexing a culture was met. Urine Culture and sensitivitywill be performed. Performed By: #### 3 4 #### [facility] [address] [facility] [place] [address], [facility] Bilirubin Ql (U) Negative Normal NEGATIVE The [facility] Comment on above: Order Comment: Crite brittaney for reflexing a culture was met. Urine Culture and sensitivitywill be performed. Performed By: #### 3 2044 #### [facility] [address] [facility] [place] [address], [facility] Color (U) YELLOW Normal YELLOW The [facility] Comment on above: Order Comment: Crite brittaney for reflexing a culture was met. Urine Culture and sensitivitywill be performed. Performed By: #### 3 2044 #### [facility] [address] [place] [address], [place] EPIS FEW Normal FEW,OCC,NONE SEEN The [facility] Comment on above: Order Comment: Crite brittaney for reflexing a culture was met. Urine Culture and sensitivitywill be performed. Performed By: #### 3 2043 #### [facility] [address] [place] [address], [place] Glucose Ql (U) Negative Normal NEGATIVE The [facility] Comment on above: Order Comment: Crite brittaney for reflexing a culture was met. Urine Culture and sensitivitywill be performed. Performed By: #### 3 2043 #### [facility] [address] [place] [address], [place] Hemoglobin Ql (U) MODERATE Abnormal NEGATIVE The [facility] Comment on above: Order Comment: Crite brittaney for reflexing a culture was met. Urine Culture and sensitivitywill be performed. Performed By: #### 3 2043 #### [facility] [address] [place] [address], [place] KETONE Negative Normal NEGATIVE The [facility] Comment on above: Order Comment: Crite brittaney for reflexing a culture was met. Urine Culture and sensitivitywill be performed. Performed By: #### 3 2043 #### [facility] [address] [place] [address], [place] LEUK BEV MODERATE Abnormal NEGATIVE The [facility] Comment on above: Order Comment: Crite brittaney for reflexing a culture was met. Urine Culture and sensitivitywill be performed. Performed By: #### 3 2043 #### [facility] [address] [place] [address], [place] MUCUS THREADS MOD Abnormal NONE SEEN The [facility] Comment on above: Order Comment: Crite brittaney for reflexing a culture was met. Urine Culture and sensitivitywill be performed. Performed By: #### 3 2043 #### [facility] [address] Nitrite Ql (U) Positive Abnormal NEGATIVE The [facility] Comment on above: Order Comment: Crite brittaney for reflexing a culture was met. Urine Culture and sensitivitywill be performed. Performed By: #### 3 2043 #### [facility] [address] [place] [address], [facility] pH (U) 5.0 [pH] Normal 5.0-8.0 The [facility] Comment on above: Order Comment: Crite brittaney for reflexing a culture was met. Urine Culture and sensitivitywill be performed. Performed By: #### 3 2043 #### [facility] [address] [facility]. [address] Protein Ql (U) 30 mg/dL Abnormal NEGATIVE The [facility] Comment on above: Order Comment: Crite brittaney for reflexing a culture was met. Urine Culture and sensitivitywill be performed. Performed By: #### 3 2043 #### [facility] [address] [facility]. [address] RBC 6-10 Abnormal NONE SEEN [facility] Comment on above: Order Comment: Crite brittaney for reflexing a culture was met. Urine Culture and sensitivitywill be performed. Performed By: #### 3 2043 #### [facility] [address] [facility]. [address] SPEC GRAV 1.014 Low 1.015-1.020 The [facility] Comment on above: Order Comment: Crite brittaney for reflexing a culture was met. Urine Culture and sensitivitywill be performed. Performed By: #### 3 2043 #### [facility] [address] [facility] [place] [address], [facility] WBC UA 51-100 Abnormal NONE SEEN [facility] Comment on above: Order Comment: Crite brittaney for reflexing a culture was met. Urine Culture and sensitivitywill be performed. Performed By: #### 3 2043 #### [facility] 3000 [place] [address], [facility] VITAMIN D 25-HYDROXYon 11-06 VITAMIN D 25-OH 23.6 ng/mL Low 30.0-80.0 The [facility] Comment on above: Result Comment: >80. 0 Toxicity possible Performed By: #### 8 6002 #### [facility] [address] [facility] [place] [address], [facility] AMMONIAon 11-05-2021 Ammonia (P) [Moles/Vol] 24 umol/L Normal 11-32 The [facility] Comment on above: Performed By: #### A MM ####[facility] [address] [place] [address]Dr. Lynettesujata Taylor BNPon 11-05-2021 Natriuretic peptide B (Bld) [Mass/Vol] 350.0 pg/mL Normal <=1,800.0 The [facility] Comment on above: Performed By: #### H STROPN, CMP, BNP ####[facility] [address] [place] [address]Dr. Arnoldo Taylor CBC AUTO DIFFon 11-05-2021 BASO # 0.0 103/ul Normal 0.0-0.1 The [facility] Comment on above: Performed By: #### C BC ####[facility] [address] [place] [address]Dr. Arnoldo Taylor Basophils/100 WBC (Bld) 0.2 % Normal 0.2-2.0 The [facility] Comment on above: Performed By: #### C BC ####[facility] [address] [place] [address]Dr. Arnoldo Taylor EO # 0.2 103/ul Normal 0.0-0.7 The [facility] Comment on above: Performed By: #### C BC ####[facility] [address] [place] [address]Dr. Arnoldo Taylor Eosinophils/100 WBC (Bld) 2.3 % Normal 0.9-7.0 The [facility] Comment on above: Performed By: #### C BC ####[facility] [address] [place], [place] [address]Dr. Arnoldo Taylor Erythrocyte distribution width (RBC) [Ratio] 12.7 % Normal 11.0-15.0 The [facility] Comment on above: Performed By: #### C BC ####[facility] [address]ce[address] [place], [place] [address]Dr. Arnoldo Taylor Hematocrit (Bld) [Volume fraction] 38.1 % Normal 36.0-48.0 The [facility] Comment on above: Performed By: #### C BC ####[facility] [address] [place], [place] [address]Dr. Arnoldo Taylor Hemoglobin (Bld) [Mass/Vol] 12.4 g/dL Normal 12.0-16.0 The [facility] Comment on above: Performed By: #### C BC ####[facility] Acrfuf[address] [place], [place] [address]Dr. Anroldo Taylor IG # 0.02 10e3/ul Normal 0.00-0.03 The [facility] Comment on above: Performed By: #### C BC ####[facility] [address] [place], [place] [address]Dr. Arnoldo Brandon IG % 0.2 % Normal 0.0-0.5 The [facility] Comment on above: Performed By: #### C BC ####[facility] [address]uf[address] [place], [place] [address]Dr. Arnoldo Brandon LYMPH # 3.5 103/ul Normal 1.2-3.8 The [facility] Comment on above: Performed By: #### C BC ####[facility] [address] [place], [place] [address]Dr. Lynettesujata Taylor Lymphocytes/100 WBC (Bld) 37.9 % Normal 20.5-60.0 The [facility] Comment on above: Performed By: #### C BC ####[facility] [address] [place], [place] [address]Dr. Lynettesujata Taylor MANUAL DIFF REQ NO Normal [facility] Comment on above: Performed By: #### C BC ####[facility] [address] [place], [place] [address]Dr. Arnoldo Taylor MCH (RBC) [Entitic mass] 30.1 pg Normal 26.7-34.0 The [facility] Comment on above: Performed By: #### C BC ####[facility] [address] [place] [address]Dr. Arnoldo Taylor MCHC (RBC) [Mass/Vol] 32.5 g/dL Normal 29.9-35.2 The [facility] Comment on above: Performed By: #### C BC ####[facility] Jjdllmayxw[address] [place] [address]Dr. Arnoldo Taylor MCV (RBC) [Entitic vol] 92.5 fL Normal 81.0-99.0 The [facility] Comment on above: Performed By: #### C BC ####[facility] [address]jntf[address] [place] [address]Dr. Arnoldo Taylor MONO # 1.0 103/ul Critically high 0.3-0.8 The [facility] Comment on above: Performed By: #### C BC ####[facility] [address]ze[address] [place], [place] [address]Dr. Arnoldo Brandon Monocytes/100 WBC (Bld) 10.2 % Normal 1.7-12.0 The [facility] Comment on above: Performed By: #### C BC ####[facility] [address]nslxipn[address] [place], [place] [address]Dr. Arnoldo Taylor NEUT # 4.6 103/ul Normal 1.4-6.5 The [facility] Comment on above: Performed By: #### C BC ####[facility] Nrxeritzmh[address] [place], [place] [address]Dr. Arnoldo Brandon Neutrophils/100 WBC (Bld) 49.2 % Normal 43.0-75.0 The [facility] Comment on above: Performed By: #### C BC ####[facility] Ehirsicvvh[address] [place], [place] [address]Dr. Arnoldo Taylor Platelet mean volume (Bld) [Entitic vol] 10.8 fL Normal 9.5-13.5 The [facility] Comment on above: Performed By: #### C BC ####[facility] G[address]ccv[address] [place], [place] [address]Sa. Arnoldo Taylor PLT 159 103/ul Normal 150-450 The [facility] Comment on above: Performed By: #### C BC ####[facility] [address]rwvirfjuy7[address] [place], [place] [address]Dx. Arnoldo Taylor RBC 4.12 106/ul Critically low 4.20-5.40 [facility] Comment on above: Performed By: #### C BC ####[facility] V[address]xqzworc[address] [place], [place] [address]Qt. Arnoldo Taylor WBC 9.3 103/ul Normal 4.0-11.0 The [facility] Comment on above: Performed By: #### C BC ####[facility] Psxjitjask[address]4 [place], [place] [address]Ku. Arnoldo Taylor CT HIP LT WO CONon CT HIP LT WO CON Normal [facility] Covid-19 PCR ([facility])on SARS-CoV-2 (COVID-19) RNA JAMMIE+probe Ql (Unsp spec) Not detected Normal NOT DETECTED The [facility] Comment on above: Result Comment: When [...] for this test is supported by the Senior Benefits Specialist of Health and Human Service's declaration that [...] be used). Performed By: #### C VDTBH ####[facility] [address]ctvivrj[address] [place], [place] [address]Ti. Arnoldo Taylor PROF 14(COMP METB)on 022 Albumin [Mass/Vol] 3.6 g/dL Normal 3.4-5.0 [facility] Comment on above: Performed By: #### H STROPN, CMP, BNP ####[facility] [address] [place] [address]Dr. Arnoldo Taylor Albumin/Globulin [Mass ratio] 0.8 {ratio} Normal [facility] Comment on above: Performed By: #### H STROPN, CMP, BNP ####[facility] [address]vjtql[address] [place] [address]Dr. Arnoldo Taylor ALP [Catalytic activity/Vol] 79 U/L Normal 46-116 [facility] Comment on above: Performed By: #### H STROPN, CMP, BNP ####[facility] [address]knrhqash[address] [place], [place] [address]Dr. Arnoldo Taylor ALT [Catalytic activity/Vol] 19 U/L Normal 14-59 [facility] Comment on above: Performed By: #### H STROPN, CMP, BNP ####[facility] N[address]sbmbp[address] [place] [address]Dr. Arnoldo Taylor Anion gap [Moles/Vol] 10.8 mmol/L Normal [facility] Comment on above: Performed By: #### H STROPN, CMP, BNP ####[facility] [address]qtrhb[address] [place], [place] [address]Dr. Arnoldo Taylor AST [Catalytic activity/Vol] 20 U/L Normal 15-37 [facility] Comment on above: Performed By: #### H STROPN, CMP, BNP ####[facility] [address]ciwl[address] [place] [address]Dr. Arnoldo Taylor Bilirubin [Mass/Vol] 0.5 mg/dL Normal 0.2-1.0 [facility] Comment on above: Performed By: #### H STROPN, CMP, BNP ####[facility] [address]gfkycoy[address] [place], [place] [address]Dr. Arnoldo Taylor Calcium [Mass/Vol] 9.4 mg/dL Normal 8.5-10.1 The [facility] Comment on above: Performed By: #### H STROPN, CMP, BNP ####[facility] Ozrrwzxdwt[address] [place] [address]Dr. Arnoldo Taylor Chloride [Moles/Vol] 104 mmol/L Normal 98-107 [facility] Comment on above: Performed By: #### H STROPN, CMP, BNP ####[facility] Cbgoipylqo5[address] [place] [address]Dr. Arnoldo Taylor CO2 [Moles/Vol] 28.0 mmol/L Normal 21.0-32.0 [facility] Comment on above: Performed By: #### H STROPN, CMP, BNP ####[facility] Fmweagpxyy[address] [place] [address]Dr. Arnoldo Taylor Creatinine [Mass/Vol] 1.00 mg/dL Normal 0.55-1.02 [facility] Comment on above: Performed By: #### H STROPN, CMP, BNP ####[facility] [address]yrjva[address] [place], [place] [address]Dr. Arnoldo Taylor EGFR-AF LIBYAN >60 Normal >=60 [facility] Comment on above: Performed By: #### H STROPN, CMP, BNP ####[facility] [address]vi[address]wf[address] [place], [place] [address]Dr. Arnoldo Taylor EGFR-NON AF LIBYAN 53 mL/min/1.73m2 Critically low >=60 [facility] Comment on above: Performed By: #### H STROPN, CMP, BNP ####[facility] Mhkvzocbdo[address] [place] [address]Dr. Arnoldo Taylor Globulin (S) [Mass/Vol] 4.4 g/dL Normal [facility] Comment on above: Performed By: #### H STROPN, CMP, BNP ####[facility] Bzshnkkiso[address] [place] [address]Dr. Arnoldo Taylor Glucose [Mass/Vol] 104 mg/dL Normal 74-106 The [facility] Comment on above: Performed By: #### H STROPN, CMP, BNP ####[facility] Frhqsamtlq7[address] [place] [address]Dr. Arnoldo Taylor Potassium [Moles/Vol] 3.8 mmol/L Normal 3.5-5.1 [facility] Comment on above: Performed By: #### H STROPN, CMP, BNP ####[facility] Qnzpfyensl[address] [place] [address]Dr. Arnoldo Taylor Protein [Mass/Vol] 8.0 g/dL Normal 6.4-8.2 [facility] Comment on above: Performed By: #### H STROPN, CMP, BNP ####[facility] Ytkzjkwrft4[address] [place] [address]Dr. Arnoldo Taylor Sodium [Moles/Vol] 139 mmol/L Normal 136-145 [facility] Comment on above: Performed By: #### H STROPN, CMP, BNP ####[facility] [address]pjqupgets[address] [place] [address]Dr. Lynettesujata Taylor Urea nitrogen [Mass/Vol] 19.0 mg/dL Critically high 7.0-18.0 [facility] Comment on above: Performed By: #### H STROPN, CMP, BNP ####[facility] Qjpqanozil[address] [place] [address]Dr. Lynettesujata Taylor Urea nitrogen/Creatinine [Mass ratio] 19.0 mg/mg Normal [facility] Comment on above: Performed By: #### H STROPN, CMP, BNP ####[facility] [address]ld[address]jibh[address] [place] [address]Dr. Arnoldo Taylor TROPONIN, HIGH SENSITIVITYon 11-05-2021 HSTROP 6.0 pg/mL Normal 4.0-51.3 [facility] Comment on above: Result Comment: CUT- OFF POINTS HAVE BEEN ESTABLISHED BASED ON THE FOURTH UNIVERSAL DEFINITIONS OF MYOCARDIALINFARCTION. THE UPPER REFERENCE LIMIT (URL) OF TROPONIN, DEFINED THE 99TH PERCENTILE OFcTnI DISTRIBUTION IN A REFERENCE POPULATION, HAS BEEN CONFIRMED THE DECISION THRESHOLDFOR GA DIAGNOSIS. Performed By: #### H STROPN, CMP, BNP ####[facility] [address]qpb[address] [place] [address]Dr. Arnoldo Taylor XR FEMUR LTon 11-05-2021 XR FEMUR LT Normal [facility] XR HIP LT 2 3V W PELVISon XR HIP LT 2 3V W PELVIS Normal [facility] Outside Labson 06-29-2021 Outside Labs [id number]#1.0 0CD:127 Normal [facility] Outside Labs [id number]#1. 00CD:127 Normal [facility] Coding Summary.on 06-16-2021 Coding Summary. CD:[id number] Gh 0bWw+PGhlYWQ+QG7KCEQwJ 18evROwsV4IF0tXTI1KVBP GKYCABU6XIZ3csEH4DXosM 2VybiAv GnxqbKByTA54ZTt3WYZ1pR cnOFztzO7qoEUqC4t9SlFi VC58cK35NLrpPVPiAbK1Xy ZpbjsgbWFy V1yyMcCskZWsPaj+PHRhYm xlIHdpZHRoPScxMDAlJyBz pXuzRC3wDf1xUKZwAOBztO xhcHNlOiBj d2rrRRTuRCyaAO1hoRkdY8 OjlLV8RBPpr0b2Nv58qLK+ OZFkLJV4bZmzDUkuj093Wc Ckv1iaUOT7 mRLeBOwsYRN8K42iw5U2OK JwFUKvAER8pQW4tF6leXtd qsmfR1XonFYiMhQ9FOO7dA ErwR3cxXbz joukqN4cAgb+M84FLI2CGK VIHV9BZwf4I9HzXuvjiWH+ FN18WXVlSB26dAQbnEZtf0 mbwIr7LqMc HTQfVUN9xGwoRNxil7HwVN ZfJ93dgKOoz7G3OOFmuZuw gYVpWwFelOA3bA7eUIooze irc1wuygii Krcdh6jwqb43dM85F19sPF meTSCbSOS1NGHqJWCgmJlr up8zgS6xVw6+ZIjpr7cyh5 phhFo1FePo FHRipuXbhJryBIY8u3XyYb 30J6PgiLklf4GiKjs1sk10 pNLll9C1kRO3KZcaAELyyR 3mPGcqYtY4 SMLbGhLczE63hKGcQQiaYe 9kvAfbeKtlBW5rKEQtjnjh VYOkfE9uECYcwXVcrHrwOB 4wNTBpbjtm j502DdGpKXS2CVDduENoZ3 SlwZ9gGeGlZXShIUOkJ0Fi pMQtNKdgU157ABuzJmQ9RW YssqAxK0Fk ZILnnXqnLhL1p8E4De8Tc1 OvmgspISW0QPnwIKVaJcB8 FsXgDkG7J1BdGto7NQUnvO ofYL2rO1Mo WLGxecbxqoewsDD8EHCtPW BzuV80dRHcSUeiHt7ba8R6 z161XIDuHPWbfY72Hr1nvG ogMTBwdCBU mG5ddjaks9mnzmjaMyXmPW ZvAVn4KVe9SGAjxUfxCvAg OYK4ScU7YZP0hADbqW1mgC tgaciesP0s Oyc+B71exE9nBKO8DSG2iv ruEWRwkrDoRI30WE99E6Nk PjwvdGFibGU+PGRpdiBzdH vhCU4nIeXs l2mfy9MrEBlrB4ZyVBMbBC nlIur7GKHiBLE3fQX8tW3o JPNxKEopc4A8eGH8Q1Wboi Xzyy5jv2ow EMWiMSjeV16ykLBcx4Q1PS KddWD2YKHkeXufCiEetO64 Oyc+IRSpaTueg9ItVlneq2 zsa6ebmAw5 FcDrSNLxmxVrpQroINL0d4 QgVx27T47vCHpzSTYfJJEa ALPmMXPdfZdvny4rtH5fAi 8+PGNvbCB3 mOP4cP0kRTLxXiH8CBpuB7 65PgKavYNfRbkah7eej4hh wJx2YoLeCZZsmjLugHjaZK P2b2OzAg82 B65jYQycKBWvMUXvKXFmBZ BdmDsmud4rzI1cYx5+PC9j o4jglz63bQ75oNK+PHRkIH A9sDpwRWkb LBNuiA1gVMnuAdQ6XIIkMw HvkK90bGAlKTwgYe3eeTaz mAmxUN9cXCRjnwlki277My Zta7hcCYPt cBNbSInmVVE6Z40sd4X1HG BtVBHfOXU8hOX1uA3bhPlv bjogbGVmdDsgdmVydGljYW xrUOejB785 IHRvcDsnPlBhdGllbnQgTm DrFLu6I2QfWmg5WYWxpUxp HN8rfJSwPTrwWl8pzJskcN efUH9wOKDt iuajv315QcZdu9crKGDplR VfHUzzCQH0N64td3W3FCIs ICBuOUQ2sXP1pA4lqOquro ogbGVmdDsg llNgtVgiJPacQLptC721WF RvcDsnPkJpcnRoIERhdGU6 WW18FK22bOZqg2R5hDW3U3 BhZGRpbmct vivsmSE7QROdRBDqiM70Of 6hoPyfGm8oLJLuKIJ8ZWFd iBVwE5CqnC2xLtJzHCFoCP GgS5ByoHWr WThkP970QSxjGtR0EDRqkq CqA5KjKZWauWpjEdM4j8E6 Vb3BG5G2NB93MM44pOVdk7 K4qWQ8A5Xn GSMvsubhrgdxaNO9GTLlCJ EnyR94Gm3hnEmrGo8pWIGt EGJ1WONjoDOtZ1XaaT4gEi AjMDAwMDAw W9RqwLQgFLazH860EEqjMd L8CSQpkaKlL4LgSBVrjQyj DbM6o0U3Jr4JVTn0CS34WY 20jVPxs8S3 aQD3O3LuFOZzfaohembyoD L6TBEmLQDsxL65Yy2vpBac Fl3oPHFePYH4WRYqhTPeK5 CifH8wOdRf MVAoHNAoU1MyjZPlCJprS2 77SBjoQnB3HYZckwUeL3Lw GJFnrRxeLiE2j9O2Uz0RJX OyVD28DTO2 dWV3XG91DY51J7QlFynwaM FibGU+PHRhYmxlIHdpZHRo KEcuNNJgNwEuvVrsVO4nPu 9yZGVyLWNv eBiaiIAhPzYjk1imOZVlJO vrAQ2sgBrnL3EzhSX6WBTr q4s9Hj08U31mG6XsdGW+PG DnlQL0qEC6 oB7nIvQoDcG6YKjyI709Yw LgrLLoTizmp1wrv3menMp9 AsY1FSAaznInwSmrFBV6l9 NeJa22S41k IHdpZHRoPSIxNSUiIHZhbG bjbf3yxB9tDm9+PGNvbCB3 ePG3cV2mOdFmQaW0EZlcL2 49InRvcCIv Ogfww5scn3dfoIa9RzKxWP JznfPfzNraBPN6b6IsLa40 Z4FohTumj0KfVuk0jn66tV Naz1G4rTH5 M3XfHXIjhiaowLEaaWcwEK 3sFFXwuvhuPXZocM4qHWSn A4v1EhCbCgS5TYkwF7Mybo M7PVWmmWMv GRjaURM1X68dn1A6BYDiOS KmNMK7iNU7gG8tiKxeqoez bGVmdDsgdmVydGljYWwtYW xwG345CXTf pEmjJAHwdE8gYZTftKLosP pjGR9oOHRmpfpaUrRAT3jb IFNISVJMRVkgQTwvdGQ+PH LvHYO7rCzq UKjaGCOvpV0qLCKcG8b8Ah TcHaU6PTniZ7BtNIYbnzjr Zw68gU3hOcQuXyA2IFqpP6 XkyiJ6LZQk dQAfAXqaBGL9O20dl2T6HJ FnNGRlACO0xBW1uK0reLqc bjogbGVmdDsgdmVydGljYW vgWRtlH405 RKXjqMseBaFeVlS7OoM3CL M0M5RvQuf7VOMyzNkeJO9m zHNiPVhwFd9wiWflwDlbHF 4wNTBpbjtw DHQtiT9aYHJubYZxvFipQY 0rZLJsqrlyq451OrYwTWK1 XOSalUGwV9IidI4yZyMdQH VwBMYwB7Dq uYQoKEkqC846BOegEsG6HA KvmkKzR0DkNEBqzSmsGeH4 i3S9Xq30RQNNDVZadivocD Q+PHRkIHN0 rKhcKOezXPUhdO9yZGHyC3 e2FfNnNeT8EBpfA8MxSTSo bdnbCo25sZ7bBcGtPaQ8YH amF2RxtsQ4 HJKpgKCsXRvuBMF8C88qa7 S4DVTcFYGhKDD6rGP5lD1l bGlnbjogbGVmdDsgdmVydG ljYWwtYWxp H331PGBydFvoTuNueNGvAZ wvdGQ+KEHfUQX2ePutNOzl MDCftK4lRKJeK4b6KjQyAl Y9AWwmD5Jf QGJhtezcBg88hF3mYoRvGd B2MPzmJ4HaqoW3UOAuqCKv XDwvDWM5Z32ol0A2TRAcRR TbBVC4uOY0 vA7fnKdvoxrouASbyWfuay CikDryWHpfEDamU171FLWk iIboUe76tDOybGorypY2S2 RkPjwvdHI+ EV55OBXzKE62rSCtcLYad7 kyoAd8BeEjYIGbEUF4vJfi JRvil1KvLEDpY09shTWzx5 P9OKDnxWko aLPzNeHfdWA8qQ9sJEayhm kci4wumbxyPdyld4lzub89 oC74N99tAFwvKITnVSBlGD UiIHZhbGln qp8ujX0oJs8+PSCaaAN6vD F5zH6pQuKhXiR3FTjfZ131 ZpKlmJYeXhcmn9aub5yowZ o8SfNnUTCu pqXobYakIHQ0h2UqKz29G8 9sIHdpZHRoPSIyMCUiIHZh uEyujt1osC4aTk2+PC9jb2 ottn70sV94 dHI+DDOtGNT8qEiqURwvDX XefA8dVGkjDbD5SSRjIoLu oR95jBEkNPjmMh2znVhfcY vpRK2xKYDf tlrcv561RvFxi4dyTQNxzM LjRXriLTJ9T26kz7G4EHIs TOOsJGJ0yPX4bA3fuXnuah ogbGVmdDsg ujBrsAigHHppMFewG809WG VayKwzYjDriRRkF2ihrjSY MZ0dOjxyjDS+XOZgHQE5qC xlPSdwYWRk xI5hDSYzA1s9MtNmDtK0YH sjT2DbwvA1FJFwcZLfWQVg kXFTmZ8xwwjwa8ccpdfyJg AwMDAwMDt0 ATm6JXZwxAjrCxPqWFX9Ug D6XEB3kLOcnV6egOzehhci dI3sJcw+RklOOjwvdGQ+PH IbDLK4eRxa XWcvFTRvjL2xHMKaV9x0Tf DgImF3LFsxX5SgltS6TVTc pTDlDVVpjLDCwQ7xhtlzm7 xvcjogIzAw XHYbJMq7OQg4UQOivPacQe AsFXF4TyR5KEE4eSSnlN5o dMbjiuozyV5jOlo+TVJOOj wvdGQ+PHRk SWM2fIxuJSosIGYjiP6yKQ TpN1a6UnUuYtK0ARhoZ9Pj psV8RLFigDNlSCWxoTTTuP 3tjlmeg4ws sbknFxAvIHClHAj3WBy0TT ItbEnfRlXtTYE8TzZ4UTW5 rSJxxR1dsTllujyauL9yKy c+NVA2XXR7 KD23ZC57O6RzCpdtuJCknZ U+PHRhYmxlIHdpZHRoPScx FNIqXtLxmTxgJK4aYv6qBJ VyLWNvbGxh cHNl (more content not included)... Normal [facility] CT Chest w/o Contraston 06-02 CT Chest [...] Milad Marquez M.D. Transcribed by: BACILIO Technologist: [facility] Consent for Treatmenton 06-02 Consent for Treatment [id number] 0CD:127 [facility] Coding Summary.on 06-08-2021 Coding Summary. CD:[id number] Gh 0bWw+PGhlYWQ+ZZ4OPEXsG 62riKIztU3LA3tDKR4XROL LXQWWOQ6YNY9qvHQ9SGeqD 2VybiAv GcufxAGuXB36VKc5FUH0dI dtXXjeeN7frOTdR2c8MzKk NJ74rP96COlyPMMyAlJ1Yb ZpbjsgbWFy P8wwVzKtbDXtQyr+PHRhYm xlIHdpZHRoPScxMDAlJyBz fLhxQX1wHi4lZRJlIKPmwF xhcHNlOiBj q1tiCYAxTNaxSH4fzHgpC6 QtbRD9FBPra1l1Hl71hFJ+ ZSSyTFY0yLhaFXcyc619Zf Qir7rvKIJ7 nOVfMQjvETP4C42nr2X0QL NnPMTyOZY3iVQ2wB2qbPdz yvkzP1NwdVAfVzR1NVS1gX AdsL1vnCki usfctE1jXox+U33PPC5NGQ JCOG1YTyz9L4ZeFqutnHS+ VY45MHAhSS81zORfwSIqm1 yizMh8YoAj BNQbRXV6nSvcEJqqh3MtSZ TsT44zeVJds0T5TLMdzLcv nOCcPgBfqQL0zC0bJDczky yaq9rarknk Ldxcv2lhwo13iB90K56gXE avAATlKNQ4DHNiYUJqsQbb hh0rkR1hIs1+MNnsl8xqp8 utxKq1KiPc SFUeeuPawExcXRH4q6CpUm 92U3MghPexl1KbYdh0zx43 eAHnx0Z7zOS8XWujXXQeuH 5dOEwbIuI2 VOYyVoDdrQ06gRJhBBjqNw 6elNpamNzuRJ9iPPVbttih BEXybQ3zXZKmnLCtzCsvJZ 4wNTBpbjtm y185YwFeNWN7RZTqbFWuB9 LloX7aAqMoJYGuEWAxA5Jd mWLeELbjO935TIqpOiS8RR XrdzYiO7Ig PQLvwPtqGxW7u7V9Pz1Sp8 TcndemZYA2BLpvOXShBcD2 HnMdEwJ8Z0RnFcm9TRAgyG bhDM3nA0Gt TEKunuijwpxxeBQ4SCCmHP CuxM54hLSwIRglNg1mb5B9 s923FCJxASOovB01Ja5szR ogMTBwdCBU uP8vsfgap1jirlecXgLlDD IlODh9AYd9WLIwnFhzMwPb KLT6OyW0VNK6rQHvbK2rfC xyolojbX5g Oyc+L91oqQ1hONJ2DEI7ie dfZZAieiSdYW83CV01E5Op PjwvdGFibGU+PGRpdiBzdH laHF2dUbQg q5tsf2GpTIqcQ9YuTYFoZB kmIxf5QBAdYWF3hFG3oE6u PKLiZLulj8B5fQM0K0Lqla Vync2at4sj IAOnRLxaX05bbZTao9M4PA IejOY0PMVzcXrcYyNwkV27 Oyc+HIMafZjun4MlMydkj2 vhw0ggxXm4 RtPvLQWouhXfzUypPTF1r8 TxCu04K44jIJlmYBKqHQAi MJGkPXNrtEsfng0coX1nZu 8+PGNvbCB3 fFJ5oC0lRKMfTeJ1SPzkU2 89QnBpaBTsDopdm9tvv7nl lYn3UlXsZQRaxiHxiWzaJA K1h1YqXi35 G35zJZkeLJCaEJViBYFiXZ HimTgqyq7dxL4wUy6+PC9j w2hflh39tP05kJU+PHRkIH U2dQsrSRnr GFTfcM6eOPmzPpX4CPDqAk MvlF21oNHzYJavGb0ffCyi rCzjVA6cIILmqobpv067Px Scy2qsIBEj lRPbOSleNBP3I38hw4G2VH JhSUUdUWY2wZA5rQ3weNzl bjogbGVmdDsgdmVydGljYW xwRQnvF217 IHRvcDsnPlBhdGllbnQgTm TvEJb1V9NyVfw7RHIgjYrr ZB7gaOYfSHjvBi2fbAobnD wsAN7jRNXh ppomt761PvCnh5epTVOiwG ZrKJzgYXF7W70yl2P6LYSs VGYcCTP6jSD0vG7ypRspim ogbGVmdDsg jcZvkDzcHKycSVrwI549BE RvcDsnPkJpcnRoIERhdGU6 EK14CJ80kSPst4L1oLT0Z6 BhZGRpbmct bftehUG1BDOzXMWyqZ30Fu 8rbAqiJs6aUPIbPIQ5JOQn dPUtB5XyyY7jClSsXECkQK LhC4JzsVYx EHzrQ394OLurQiU7MRNayq YcJ8RoJKMxcHkmReV5o7F6 Ze7PU7L4UE27WY36lYXym1 S3iSW9Q3Lz CTVdxsjbftronIF7IIViXX DddU34Lg3ccKqnXv6lEGLc UZW3UMQbmCPiK4KnoN7nOj AjMDAwMDAw R3IjfDRiLQriL571UWgrZy P0JVCygpTyH5YuJNShqHow SlP3p8O9Xc7VOZw3TF95PR 45mWVus6D4 gKP7G9FqOUHmfsnxlescdG P3CYGuKOWryG85Fa2uwMet Cv1rFTYoFBM6JSYajLOvX7 UemV0rBjDs RWTnVTNvH9FseJCeBKdlD6 99NPtyEcO7EJHprjDoC6Up YTWanPfiJkM4y2B5Rw4ITO LxTP58WEZ5 aXE1UG25DL87I1GjWdlluM FibGU+PHRhYmxlIHdpZHRo BIlyTSKbHbGotAriUV0rFr 9yZGVyLWNv eMxfzCHhOwBfh4epBDXnXY dbAZ3qoMyrI6NioMZ9DPPc b1q4Sx14D90tR6OqlUO+PG EifHI3bIL9 nT1mUxHrRgC3KHtuA299Rs CvfIVhEslst8kwf4ujlFi3 HhR1PODruuSewIksLZO6p6 TkQj58U67e IHdpZHRoPSIxNSUiIHZhbG kfhd8xnU1cWb4+PGNvbCB3 wIB7wJ1rLhNkFfJ7UIkaX7 49InRvcCIv Jqjmd7noh3dvmTx3CcAgLL WxmdUafZskTCJ0y0NyVq89 Z3JhxNbdr0WoWnn7kc60oP Eju1B0jYA7 R3FoJAZgnchljHJqaPyzJU 9vTBJzgielDXRbjJ4jRYYf P5n7NaHeQmM8NUlkU6Kvfg G1HGUxtDQb ZQgaRKF0W58pb1T2FHNzDX WkDLQ8pXJ9jU6urUweteqe bGVmdDsgdmVydGljYWwtYW yqH554UGCp uAwzVSRmxX0qQSAxgXXoeX xkRX4yHBQlayqnGxFTH8jz IFNISVJMRVkgQTwvdGQ+PH LaWCV3gZxa HRkaGKEgnL5pMVHqV2r0Mp XmUlX4IZnaV5BoITZvcqpz Sz17vH9zWoZvPsO7SKhoG5 KpypK7TTCb oVZuOPpgGEH4D75zz3Q3CW UdLRYfEPZ7dDZ9eA9pdOny bjogbGVmdDsgdmVydGljYW mkLXytQ878 TZQodMiyRfMjMcT3UrS9VZ J9O1EfDga4FFVegLoiEF9k rNSpMJwfTi9bpEbzwZetBM 4wNTBpbjtw SAQbjZ9qSXSzvMDacRgyXH 7aNZXvdhwvp688LgGbVZK5 BQXwoETjG3VvfN1hUuFmIF SaXACaI2Sm wJVnNFamH835VBeoXsV6OE PfnxViF4AyAMRllVxrVlM6 e8C4Lf26BNPQWBPejgfmtF Q+PHRkIHN0 tDmoREzeRSLbsR7iQEHfX7 a1TvIiNhL1QDbxO7DiGJYr bbquGe56jC7hFoYgTkM1VI ptB8AolrJ1 ZZLeiNNaRSstNWA5N10iu7 O9MDGgSYXcGXC5kAR5fZ9h bGlnbjogbGVmdDsgdmVydG ljYWwtYWxp W678JIFbpJjjPwCtvIVhAV wvdGQ+RLGqSVO0dBzrINah LTWftC2sZAMiG3w7HpAvMr A8YKzzA6Aq JBCwnvipUv52wN0zJlSmRv I2GPuqN2FrhaM6CDSecNMy LAohZTX8A10eg8P3WQXwSM DzEMJ7zPG6 zC5mdSgccijviBSucRgoxm HcgNogBAswUSnrE939QSId iJrwSp46fRRtmHgyzvF5R6 RkPjwvdHI+ FV09PFSzZZ14xEFaiZEuu4 kukHx6XvXnWNRlYUM5oPjj YYynm3LtJLKeD37lbYHtr1 X1DIKelWpc cROzPzDxlFI8dW3wRCrlfh vgz6ljggmrQfxmc2qgmx78 sY11R72kNOapXRBuCZZeEW UiIHZhbGln hn5ibA8tMg0+NBTebJP0pP O8zR8kQrLzReI9JQnbL922 KwPcxUTbRqmco6ids1yygE e0HkTeVNRc wuHulXkgDGG7y0RrYp60L1 9sIHdpZHRoPSIyMCUiIHZh vVaxgf6wsK0vLf3+PC9jb2 ndad85nP69 dHI+HGEmRQH0sAevHStoCU GahM3nTHrxOtA9AQSqUhYf cQ36vDVjFHbrQh0alChtcR sbKV6qAYOn bmmzu776XbArj1bjQVRecB TmQClyKLG3B46rl5J5EWFr KIBtWLU9nSG3gX3njOynna ogbGVmdDsg afXdjJwtTOpmJFviW121OQ UmiFepXgVlkDYxT9gzeaLQ GX3yCohfpCU+UDVdNGQ0jA xlPSdwYWRk cS5eEITsZ3t0FpRiMcT8SI qkE9HtzoA2CXLllZRcFNLp eJTFhO9ktvcul4ondokgKm AwMDAwMDt0 CJn9RYNpzLmpSaStPJU4As E0WVJ7rXRanD6wdTvbejjd wM9jAby+RklOOjwvdGQ+PH CaXKY7wMdx MWbeXCEfzI4bTGKuR7f1Dc NzDgC7LNonN9RkcvY2RJMr gLAfJXPblXMYkO3zpmwxy1 xvcjogIzAw YPQlKFw0KNo3CJFffLyfPz VxPYE0HzD5ISC1jFSuqU5h lVgaxrcjtQ0gMnq+TVJOOj wvdGQ+PHRk PTG5pPcwLBvoGQYmwE6bVC CvF6q7XcCbYjG2CGaeT2Ei zpK8ZDNldJTxLGCduNRBjH 8xzxtfw7ce snswDmFvYCTdSSo7BJn5EV RmqEvnKnJpRNZ7ZkW2RIN3 rJBviJ6hkOjvvtewuH5mQz c+ZOE0HZK8 NC65YN50G7DlZcaoxTFkcV U+PHRhYmxlIHdpZHRoPScx MAQpCiKdxVvwRO9hOj8sIM VyLWNvbGxh cHNl (more content not included)... Normal [facility] Pre-Certification Formon Pre-Certification Form [id number]#1.0 0CD:127 [facility] Consent for Treatmenton 05-04 Consent for Treatment [id number]#1.0 0CD:127 [facility] Heart and Vascular Office/Cl inic Noteon 06-01-2021 [...] ciprofloxacin (Muscle weakness) sulfa drugs (Hives) Normal [facility] Comment on above: Result Comment: Elec tronically Signed By: Kalpana ALDANA, Winston X\.br\Date and Time Signed: 06/01/21 17:29 EST Prescriptions/Work Noteson 0 06-01-2021 Prescriptions/Work Notes [id number]#1. 00CD:127 Normal [facility] Progress Note-Physicianon Progress Note-Physician [id number]#1. 00CD:127 Normal [facility] Pulmonary Function Studieson 04-20-2021 Pulmonary Function Studies [...] recommended. READ BY: Sheeba Barksdale Dictated: 04/18/2021 [id number] Transcribed: 04/19/2021 cc:Whitney Goodman M.D. [facility] Comment on above: Result Comment: Elec tronically Signed By: Kalpana ALDANA, Winston X\.br\Date and Time Signed: 04/20/21 12:13 EST Coding Summary.on 04-19-2021 Coding Summary. CD:[id number] Gh 0bWw+PGhlYWQ+HE3VVYUxJ 39ejVDhqZ8UL8kBFT9FVLJ IXLGNLE8YRI2pwVS1OVezE 2VybiAv SyavkROnFS35TLh0LHI8zY uhIEuqlB2qrAJhQ5j0PsTy DI53yP40TGcdJXKnPvG4Ri ZpbjsgbWFy E1axJzPihYWbAla+PHRhYm xlIHdpZHRoPScxMDAlJyBz jMmjRY0qNf2aLTZbSXLhiQ xhcHNlOiBj x1bnXIBePUfwFV2okHbdJ8 PlfOS5EYYjq5r6Bl53oJJ+ CPLxQNK3zOcsZCuon366Vq Gch1plQQH3 nVXrOYpmUDZ0Q82xw3N9NS WiLCGsBSC4dWK1uE2hhYos oobzF1HklFEcKsI4EGU4zS MuzO1bqWsy dqhlvR0zEve+D57RXF5ZOZ PDGN6OWvk5Q3AvBgnyeHI+ JU22PCVpCH82tDGpnZLwe5 pasHc7VbSv XXUqBLU7iPdtHMusk2NfHT PuG99rqZPsr3W4CXXvoYmn cUWzFiLbgXH4eP5oALddtf rkg5jtvprb Nasuw8mfrl03gM08J76pNX bvWCNwAKQ2JXGgHHRnnFjj ka6wbJ5aFu5+TDhbj7hdx2 fxyUu0GyJp TCDtljYrvMucWRA7n9BtQc 68K0NxuLawy2NjZvu8pp41 sHVtj5X6dZP4YJbcTZOssI 4tVRckCeL4 ARDuBtGylH75bLOaSLbeRl 3rjEeifJuhJA8aMIEczjux SQMzsV3zSIIigWOzkBsdHC 4wNTBpbjtm a455AbHcYDR9PYKmbWAuF6 VuaV1lVjZfKFGzDIAiL7Cp zSDuTAesG042BDpcTuL4ZQ PpxmTpM7Jt YDNrtApxBhP6e0X3Pt9Kt8 ZmnmrhBKQ2EAxlGSYmKaX0 TvYuSiE2J3PfFcq8BUQrmM bhFG8jA3Op DZWztkrquypgfXN2ZVAtIU MnnK62pKCgKPgzKa1wu9U7 d046YKIhFPEljL92Cb9zuW ogMTBwdCBU lJ2ikhcpw9gkdxpnOhDdYP HrIKw2APm9WJSjlYfqPlOl UZX5YeC7FEZ5mIPljS7koH vzazoseO2k Oyc+K68noD3iBHS7MFD6ej qjDROoiaMzAT17SC89C8Rp PjwvdGFibGU+PGRpdiBzdH xdQJ0fXaPb e9fuw3GyIPefE8UvAMZfYG wpGbe1EJYzAQB9uOK6fS7f GRNbSHtus2G0kQV8X1Mgtn Vouv9gy7sj HIDlBIkvO71noKIqr5K3MW WdfVU0SOXxhDdsTzGfhK52 Oyc+DCAgkObbe9PkPienc6 uqn1gipVq7 CjDzWMBhghCrkUrlPXU3g0 XbXu09P47iOTxfKKKxYLXq UKVeUJMohWuubl1esG8zIm 8+PGNvbCB3 hFN0nE4aXOUlTlM3UJhbU8 78AeLceRYfPlnef4isp0ia pAg6CnUrLBNnekIccXycXN W2q5PtFr60 U91sHJsqDKFuZBQjNQVcNB QhiPpxwr2djW1vZq6+PC9j k9qiby00cH25wOF+PHRkIH U3zWbqHVuw TTLbnH4gYQsoGoS4ZSCcKw UfaX46uFRtVBcqSp0apEic eDzsZO9tPENdfqgks587Qd Eoc1jxFEDa iJUhPGcfJYH4W70sw4F6TM CgHKYcTVS5aQV5oP3niYze bjogbGVmdDsgdmVydGljYW cfFYnhZ403 IHRvcDsnPlBhdGllbnQgTm EfLQb2G9NeZym5DTAelUuz LU0umGKfCIjfTn9dbIhkiF mjPS0rXFGt hqytx410OeMtw9twOLExiK RkFPanYMF8Q09cu8D5PVFv HLEyWWB5pQB8qD2bdRwsyh ogbGVmdDsg fbIhfNeeERqwEAlhZ468MH RvcDsnPkJpcnRoIERhdGU6 LE33BY59jGObv4K0gUP4Z5 BhZGRpbmct dbvygNY3DCWgGMHjcA00Mj 0qtJfcCn8eNLRePSU1ERDt mFHcT3OpjJ1fFiUdNXRsOP YvA9JwjGUu IMxwE281YPlrWnJ2DYBrsj MvD0WoWWZhfXbnKgQ9s6Q8 Nq5XF1M4JA72QZ39kIXqo0 Z8dUS1C1Oe JCIrrcydrunwoZQ8MGTuIG MjtG05Ge2orOayVw6wBBPy CIS5SYVvoUTrL9YwqX6nUm AjMDAwMDAw C5GxdVJcWPgtU355BTzjTk L2SDUinkOcO0ShACKnfVex DkJ1h9L4Mt1UDGx0OY71ZS 31jIHhj2U8 jJH8Y6KyNKXcvmcpkrnftS F8BGTwMJSviK52Fw6jdCsr Fa5oBQGbRYO8OCTpmFDlK4 IjvF9jZmUn KFDaMZUrV5CruLBgDOhiZ6 47APfsYgS2BCHsfuRzC1Hi HDWrhDedQxP3x0M9Ub2OCN WpCI46ADS8 hVW6SG88PS44Q2ZjGitnhN FibGU+PHRhYmxlIHdpZHRo GXqgFQXtHdKtyGqiHO3fMo 9yZGVyLWNv xRsyqBUhIeQtm6vgQKEyTS iaOS8uuDfuV3UwtLG3NSYl r4k4Rg45Z66kS7AgyRK+PG DumAU4zWU1 fX8mBeAeJkU4FIorD707Bz BttTZaPurlg0asq0mipTo6 RsJ9RCXiqqYeuFjcLYZ9w1 HkIv19E22y IHdpZHRoPSIxNSUiIHZhbG xbdv9giM4gCe5+PGNvbCB3 tON1xG2zJnMiFwD0NMeeR9 49InRvcCIv Boicz4wln6fdlHt0ArKyUF JyoiIdbNcpANY0t2QbNt90 M1IdlWisn7TgIwp5pe70fP Typ8X7uVV2 H1LmIKYpkpddrAOttMwvTC 9mIHRlqoelTXQxaH3mDPYe V1q7GeIzDgJ0DKzhR8Wytf L2DUSfaACh IIjvAND1G67xr2X4PUXvDG KyAZX8mGY1lT4adIngbfos bGVmdDsgdmVydGljYWwtYW ndE975OAYq sCviHYDjuB7uZEOyaUSndN ivWO8wLDSrgaiiVlVFW4me IFNISVJMRVkgQTwvdGQ+PH KhQIX2uDqe BYqoJBWmkJ0vKNZjK6k0Ps YlJgF3QLqrB7ZaUPOrpykl Pl46cV6lNdRzBgL0PZsuL3 KshjZ1ZJMb mDOwWKjuUYU5T23dt0Q8VW XcNXYgSSX4xXU7sC3jyBrr bjogbGVmdDsgdmVydGljYW pbEWoxK277 FYVwwDvgYhHfEgG2ZmK5QJ Z0F6XnMiw3IJDahJqyBV2t bHGpQAgjFr6obNnkwPxjTH 4wNTBpbjtw YGHinN4aXFHevSYylGadCW 8lRFRvijrsz890YfHmZEQ6 SOPxnBNaP8YnsF9iAlIpUL FjEXPsP5If kJQsCQbaC043APhxAdO6WL OkijSvP1DpOSZxoNssWwP7 n7Z6Ea33HOYNJHNxnmgjzL Q+PHRkIHN0 qPylHWoxEKVrgX2tPASmV3 u2DtFwQgU4LWonB3XzEZZg mduwWp97hX4yJmYsYhP7PH zlY2YblxP4 SXRimUVnEXnoXKZ5E29ub9 L2SDCjZSVuFBW7qKF0hD3v bGlnbjogbGVmdDsgdmVydG ljYWwtYWxp Y142VJWkkHdkUjKwuULkFH wvdGQ+EJKrIPV5yOenTJai BZVqiW6sCEAtM9v5XtYlIr D6KLtzN5Jw BPSagjonUj12cA9rPeBoLc V7VZkvT4TwutZ8CQYweLQz LLgaMCU3Z38rx0Z5GEMtHX DmSHJ3bOT4 yD0hzLunnvkxqJTdqXcisn SjtGkcPWmbXItsT998QMYc qDqyLh57lRIxqOsfuyN9I6 RkPjwvdHI+ DL26DMBxZM60pRIcuQEwz9 mbwJs9PiYaSWBbDVT4uRzw RQpfc7IhNZLxS79auCNvt0 X8XVOurFpt sBNzVcXjzME5xG9kWDxgig kgj8rwrmpvYfuti5aruq07 nG49C63dORxwLNCjQDAqYF UiIHZhbGln yw0mgX2qFj2+CAIcnHQ6gO A1yV8gPxXtBiM8QXzyG448 DfWldBKrNxeet8jgy3ieuI r7VgPzQPFx waZpwEdwTWV5b5TtWc95H0 9sIHdpZHRoPSIyMCUiIHZh xSfseh5gzL7kPg2+PC9jb2 vnge00fM79 dHI+BRTnPUS3xYueCEazTZ JomR4nPMdzGdV5AXWvJjRm hL51cOUjEEguZw9roXmdkI icQS4cNNKd yviml062WgOxs3mfGFCeeQ VwKTlpFKW2B27ft6E5MTUd UTCaJGR3hVJ0eR3oaCmoca ogbGVmdDsg lrSeiFsuPYbgPDpuW475GF MikPodBpYwcIAhI1baccVD CQ8oXbomzWQ+NMPaGSO9dL xlPSdwYWRk bR8jLGFaF7l4NkLrUxO4TQ diS0MockD0JHQhxVQbNZSg wVGPsE3cvflil5cgswduHz AwMDAwMDt0 QOx3JOFiwRwgToKbRKP6Wm E7BLQ7oCWxvQ1exWukmdse pI9zIvi+RklOOjwvdGQ+PH XzHSA3kSwp AJvoDBSuzK6sUJRmI5f1Mq ZuAqV8GBssQ3ZekeX6LHKc xMDpIUFlgFUQvZ8hrbiud0 xvcjogIzAw AIGwLUb6SGx0HVOwtZzqIo EcQHH3CgI8HBE3cFMzeV7h eNwunryvnR8eAqk+TVJOOj wvdGQ+PHRk HEQ6fLccZRvhEIPmcB7rNJ SyC2w8GzIqDrU7LEhkH5Nz wxM3EIAvfGBfXNOtmBRWyI 5xtcntm1vj wxouVgNaRIJiJNi8TFh7NS DmcUipTcEtBMX2AfF3EDT1 uHDucJ7wpCvexituxA0vXm c+DVI2QPT4 LP94UX52A2HqEggqyFYuqS U+PHRhYmxlIHdpZHRoPScx TLQzPzIdqRvkRY9tTt3eJT VyLWNvbGxh cHNl (more content not included)... Normal [facility] Coding Summary.on 04-15-2021 Coding Summary. CD:[id number] Gh 0bWw+PGhlYWQ+RE5DKFIbV 63viJWdtU6WW6iWHO8RKCS HKWBBKM3CKT1yqZK7NDwpV 2VybiAv ZgbofJToJN69UIx0RHZ4yQ tsXOmcmN6ovKKmJ3v3AoHj EH21wD89ZIdfQQXsCmL0Tn ZpbjsgbWFy T2luAuCnsFNtUkd+PHRhYm xlIHdpZHRoPScxMDAlJyBz iQkvIP2oSk0qWVAlJCXcwM xhcHNlOiBj h9boQBJsDZxoWL4dpUxmC3 AkzQN7QCKvw3f0Dn06nPC+ XEFbBIO5jEimZYljp178Ma Int7mfIGG0 jPTaFTcnDPV4L41vx9L1OV LxNOGdKLR7fKY3fL8viChf jtvjK1DrwUVyRcY8HXQ8aC TypE9whKij ypkpqZ4bFxv+P56RXR3DHX RWJB7ZWig3I1DbUmgmuYD+ JY49LHCoHZ61kTQcxFKqy6 esqMj4ZaAd NBLzMHG7lTulSYqvq7LlGE OoU43mxRZgx1Z5BJQbjOca eHVlJqKryGO9hW2yRRxxcr ttk6koprgc Wuqvi4yqyj50fT15E12hSD knWVImILZ0QQZdZVMjgCyz gm1obP0oZt5+QYvlf2amz4 larDb2FkMc LKRftjZoyNjeDJB6z2HcBm 95Z3CubMckq7FeUum5ln36 oOKbm9T3sWZ9PTkzXEGcxR 6fXQuaPhC5 TYEsXlKbmW87dGBnKMvfNi 2qpZtnjOnmLC5zJODatjeg WAOdqH4xLCJeyTHryIzuDD 4wNTBpbjtm w573HkWdJHZ9WCDloQStC3 YqnW3nQkOhOFFsZVWxU1Ti mGApEYleB127CKsoBjE7KE YqkuYkA1Ei RUAjxObdSaZ9v1Q8Fx4Ai0 ZwvmzkOES8KZdsDIHfZzD5 TqUlDyD5H1RuIuf9DRAddN hjEM8cX2Iz PZLjtfgvxrdufJN0SJEoBP MfdF42lAExVZhnTo0aa9I3 b147WDFiRWLvaD92Wx6mnX ogMTBwdCBU bD1vvmreb7ikdvvlOvMpCR FpYVw4SWs8TIYqjGuiRvPj FPD8OmB7SRG6lDWseT9vwY jbjqesvM0q Oyc+E36ojP7kGJC7QOK5it ecSZAzreKkHY09PM25T3Ly PjwvdGFibGU+PGRpdiBzdH mjSG2lJyZm k3qem8DsBSbeD4IaYSPrKA ryJsz9FKVlITE1lFG2nO5y ZLQuIIxwo4Z4xVS3X4Hazq Djlw5ve1ux QZNzHOavM54hlVRhs9V1GY EbnFF5OEKcxWxxIuDrjA80 Oyc+NALfvMrgb7UnEfucs2 hex7kzlLs9 YeOdHYIzohNmcDteFCI4v6 EuYo97N39gPYhtMJHyMNDm PEBlIRMiuYahhd3ufP5rXs 8+PGNvbCB3 bBI4zF9pRPJqLfG4SEqvK8 89SmNdzNHyAplto6qpi6el lKc7UvOfJCBnpgQouHaqCY S7s0CbYk65 O69uOXnjWFLtXXWlMLLhIX FraFluzn4ixQ3cNh0+PC9j s6bhad74fL73lJY+PHRkIH O2vUsxOLii SLJpxI2bGZztTbS9FVLpBv AdqV38nMSvLCxeIh7siYev gXkoFS0pHNRtxtuty401Sy Mhl1tmGAKl kSVkSPcyJSH8K89vd4L7IZ PcWSTaBNN7vRO4qK7drZyv bjogbGVmdDsgdmVydGljYW bsPHzhI147 IHRvcDsnPlBhdGllbnQgTm GxRBf0P7IkRbb4BCVzhYoc IG1xwTLkWMaqTn7tfRlyxN usUI7jMOYb aphpf898ZrKra6mqLLYxpZ RhMBxxSLS3E99wn6X7HYMd MANeGZO6xRT7bO3viRpzru ogbGVmdDsg rsFiyNmnKPvlQJymI828PT RvcDsnPkJpcnRoIERhdGU6 YU11YJ51iPJzb5J3tSI1U9 BhZGRpbmct tjbcyEJ3FMYrASGkqM80Yr 5nvIfrGx6iGRYxZVW8ZCNu wMEiG2CyzQ7kXzQsDVHpUP WkJ0ZhnAEj NWcbN443MXqeHaD2HEQzhr EsY3PlKIHduSdjZtE3q3O6 Ji6KG2X6RZ02CH31xEYro9 A7qEK1E4Ds YTJjlkenkrruuFR7WVNxLL CzfY48Xg1ccVjpGe5yUCNy NKZ6ABNsfCFpO3AhjY6iYl AjMDAwMDAw Q4LswFVmVKcyT658TBgzPx B2JDEmgwWwT9KeCVSnpCzl XlT1d8P5Xk4CQZl2BV67JC 16vWUko5C7 qBX7F0LkPEJbiwwkhkxvsC B6UEAmEYThwD38Tp7icSir Un0jVYSrUFW1DDMroFGdU7 AwxR1mLpHt UUYyEFNeH6NepUFuWCphD9 38VQpeUrD4OZCmikMeC7Vz GEJikVgoQsN9z1J6Hy9KVF IqXE49BTH1 pSH3IM47JK63P7CcYjhsmW FibGU+PHRhYmxlIHdpZHRo IIcaESPvLnMkoAgjFK9kJc 9yZGVyLWNv gUskiWBoCqZye2ktAEDgBU xwZI9pgBldM0RlkEU1ANKg a8o0Mk36S84mM4WyaOI+PG IvnKZ5uAD7 yO7yKiKdOhI3NVyvF998Uq GzdGSqEmptt9vmi9ctoOk2 WhO1UPMweaGcuPgwUTC9v4 MuEj53Q33v IHdpZHRoPSIxNSUiIHZhbG fcqh5uqB4nXw2+PGNvbCB3 qAG3eY7hTpTuRfP2NVawZ1 49InRvcCIv Elieb5bmv2aakBm1MoEsNO FcekOgsNtvWQA6p2LqUz11 Q3RckOuqd0IaQvh0gd94uL Qjr6O5cHD2 F0ChDMKwttattHNbcWqgNC 8lBWDcpnaoLONosV4qNCHv U4z6OiAaFoL8XXikP0Pfmo H5DUKbpAWe DEuuWGT7M21ej6P8LQUnNK ErKED4bGQ0kM8wpFfealws bGVmdDsgdmVydGljYWwtYW dwX975FQPn lGicOGAqhA0uIJXyvOWxeC yjYV2eVRBqxfghBhGEX7fr IFNISVJMRVkgQTwvdGQ+PH EeKDO6eHnq RWbyVWPthY2hYOFyN0d1Ct OmUoB4VUpnG9YeJZMngfgo Wv14oS7aBcXfUhC6OFyiB3 XncpB6XXKp xJVgLJvrCEP6G67pp2U7ES IiXVQdJHN0fDV6lA9ghYea bjogbGVmdDsgdmVydGljYW ukDYnhJ035 NIVbkVutTlHuBfY5QzU8DE C9W5SmUcg6ROVrvFerOD9g oUCiFCfxWd2ynAlraRfbXC 4wNTBpbjtw GMIikS7uQVUtmLKhdMkeEI 8uTKUrrixwi865EsIcDEZ9 RKBtlDSqB0BujA2hRxFtAI RgMBZlT5De sEHsSEvmF642TSipLsT9ZC KtryFrI0UnKEVyxSzlOiR8 w6X7Bp69ISCZSPDxqvqatQ Q+PHRkIHN0 oArmKAiqELRzrK9tEPDeI4 y2BnCcKoQ9NHiuO0FyAXWn cxloIg76xZ5sSoQbSrQ5RE svV8WfphB4 CWBhaFVjKRnjTOL5C02mg9 Z0WYVyFINtNKE2jYG2gQ6a bGlnbjogbGVmdDsgdmVydG ljYWwtYWxp Q594ZSIrnMzkFmYywHBlAH wvdGQ+ECVhVPO8nKdcYVcu IQNynH7aTLXiI7d2UcThMt T1HUvjY5Rl PTIltijjOc37nF4jDaYwXm C8NOxqJ1SvexP5DIOeqLCh GUcoEXU8C86fj8A2CCZsPY DfHFU6yLV3 dS1crUeocbnhaDYrmZdoes KapGdbLEuyFSutR911JOEy vMmvXa19rTFktRyijzZ5E3 RkPjwvdHI+ FH09HVVfVT10oWLqeGNiv6 omtRw7YdOyPBJrUBO3sCca WPcdl9TcLDToA98elUJfg5 U3UWUmxQyg nBUePbDkfCU4sZ5jHXzwio xjo0aysqoiKcqls1tsyy57 hK73F94nPUgtQRZkMGKhIN UiIHZhbGln re9dzX5gHi3+YIHlsUB3wR T8eH7mVuUyAwO8SHhtP247 ZyAhgMLoTzgri0zym6nedJ l5XdVgTRFz sxPqiFonZQT8s4LqPi83F8 9sIHdpZHRoPSIyMCUiIHZh iGzwjx6hnG6zGz0+PC9jb2 srdl61lK95 dHI+DBJaDIT5yUltCUicZG QpnU7kPWnqPyX0LDVoEfYd sG26mQGjHZdbSo9akLyhxQ gePQ5uFHXh yczsn590HuBfx9gxXXTvkW AdHYdiAML4B40my1K8UENa HPNlDPO7eIJ1tB7pjJifsp ogbGVmdDsg iyTavFiiEZngAVduL431XA LkrNinLrAahCIjC4dhnmPX MJ4zQjzipTN+GBKhNZE9yO xlPSdwYWRk xK6dIROaO9r3DcImDkV0YU uhH4TzjeQ3MESklAKiKOFo wKJKlC0ehsnwu2fconpqLk AwMDAwMDt0 GVs7YTNnwGxnGvAbEUD5Cr I2XAN8gOAwmS8syBjhivfh qE0jEuz+RklOOjwvdGQ+PH IcOWF1nFeq XXllDQSrvF9sQZKgQ2f3Gi YmWpT4TKgjM0XubqO9JPAh oUOxFCFtaYSNfM4ichtbr4 xvcjogIzAw OHAmELe4BNe6LVCxjFuxAd UyXJX3UeZ9ZME7lGHyyS3c rXbyyuiayF8kLvh+TVJOOj wvdGQ+PHRk ACZ0jHsoGSbdVIKypW8tXP DcP9b3AlWjZxF4WBlvR5Sf qoI3OZLxcIUfCOWarSEVcR 1rbevyl3tb fucaGxKwOLVuKUy5RHl9VC WcuFtgHwFnPHC0KkW7VOV3 gUEjgW5hiBchpmvutU4cKe c+YZV4ANZ6 ES32LR56N7SbOszowOWzqH U+PHRhYmxlIHdpZHRoPScx SDAvJzGipTtiSO3pWi9lIW VyLWNvbGxh cHNl (more content not included)... Normal [facility] XR Chest 2 Viewson XR Chest 2 [...] M.D. Transcribed by: BACILIO Technologist: GAYE Normal [facility] Consent for Treatmenton 04-01 Consent for Treatment [id number]#1.0 0CD:127 Normal [facility] Pulmonary Function Testson 06-15-2020 Pulmonary Function Tests [id number]#1. 00CD:127 Normal [facility] Consent for Treatmenton Consent for Treatment [id number]#1.0 0CD:127 Normal [facility] Progress Note-Physicianon Progress Note-Physician [id number]#1. 00CD:127 Normal [facility] MRI BRAIN WO CONTRASTon 09-30 MRI BRAIN [...] In Basket (authorizing provider) Final result Normal [facility] MRI BRAIN WO CONTRASTOrdered By: Rigoberto Molina on 10-17-2020 No acute ischemia or acute intracranial process. Generalized parenchymal volume loss and nonspecific white matter findings most compatible with chronic small vessel ischemic changes in a patient of this age. Nonspecific supratentorial signal abnormality most likely due to sequela of prior remote microhemorrhages. [employer]: EXAM: MRI of the bra in [...] and bilateral mastoid air cells are clear. [employer]: [place], [place] Incoming Radiant Results From [employer] - 10/17/2020 5:53 PM EDT EXAM: MRI [...] due to sequela of prior remote microhemorrhages. [facility] Hemoglobin A1con 10-10-2020 HbA1c (Bld) [Mass fraction] 5.1 % Normal 4.8-5.9 [facility] Comment on above: Performed By: #### A 1C #### [facility] [address] [place] [address] CBC With Platelet and Differ entialon 10-09-2020 Basophils (Bld) [#/Vol] 0.0 10*3/uL Normal 0.0-0.2 [facility] Comment on above: Performed By: #### C BCWD #### [facility] [address] [place] [address] Basophils/100 WBC (Bld) 0.1 % Normal [facility] Comment on above: Performed By: #### C BCWD #### [facility] [address] [place] [address] Eosinophils (Bld) [#/Vol] 0.1 10*3/uL Normal 0.0-0.7 [facility] Comment on above: Performed By: #### C BCWD #### [facility] [address] [place] [address] Eosinophils/100 WBC (Bld) 0.7 % Normal [facility] Comment on above: Performed By: #### C BCWD #### [facility] [address] [place] [address] Erythrocyte distribution width (RBC) [Ratio] 13.0 % Normal 11.5-14.5 [facility] Comment on above: Performed By: #### C BCWD #### [facility] [address] [place] [address] Hematocrit (Bld) [Volume fraction] 34.8 % Low 37.0-47.0 [facility] Comment on above: Performed By: #### C BCWD #### [facility] [address] [place] [address] Hemoglobin (Bld) [Mass/Vol] 11.6 g/dL Low 12.0-16.0 [facility] Comment on above: Performed By: #### C BCWD #### [facility] [address] [place] [address] Lymphocytes (Bld) [#/Vol] 1.2 10*3/uL Normal 1.0-4.8 [facility] Comment on above: Performed By: #### C BCWD #### [facility] [address] [place] [address] Lymphocytes/100 WBC (Bld) 13.0 % Normal [facility] Comment on above: Performed By: #### C BCWD #### [facility] [address] [place] [address] MCH (RBC) [Entitic mass] 30.8 pg Normal 27.0-31.3 [facility] Comment on above: Performed By: #### C BCWD #### [facility] [address] [place] [address] MCHC 33.3 % Normal 33.0-37.0 [facility] Comment on above: Performed By: #### C BCWD #### [facility] [address] [place] [address] MCV (RBC) [Entitic vol] 92.5 fL Normal 82.0-100.0 [facility] Comment on above: Performed By: #### C BCWD #### [facility] [address] [place] [address] Monocytes (Bld) [#/Vol] 0.7 10*3/uL Normal 0.2-0.8 [facility] Comment on above: Performed By: #### C BCWD #### [facility] [address] [place] [address] Monocytes/100 WBC (Bld) 7.7 % Normal [facility] Comment on above: Performed By: #### C BCWD #### [facility] [address] [place] [address] Neutrophils (Bld) [#/Vol] 7.1 10*3/uL Critically high 1.4-6.5 [facility] Comment on above: Performed By: #### C BCWD #### [facility] [address] [place] [address] Neutrophils/100 WBC (Bld) 78.5 % Normal [facility] Comment on above: Performed By: #### C BCWD #### [facility] [address] [place] [address] Platelets (Bld) [#/Vol] 275 10*3/uL Normal 130-400 [facility] Comment on above: Performed By: #### C BCWD #### [facility] [address] [place] [address] RBC (Bld) [#/Vol] 3.76 10*6/uL Low 4.20-5.40 [facility] Comment on above: Performed By: #### C BCWD #### [facility] [address] [place] [address] WBC (Bld) [#/Vol] 9.1 10*3/uL Normal 4.8-10.8 [facility] Comment on above: Performed By: #### C BCWD #### [facility] [address] [place] [address] Comprehensive Metabolic Pane ke 10-09-2020 Albumin [Mass/Vol] 4.1 g/dL Normal 3.5-4.6 [facility] Comment on above: Performed By: #### C MP #### [facility] [address] [place] [address] ALP [Catalytic activity/Vol] 65 U/L Normal 40-130 [facility] Comment on above: Performed By: #### C MP #### [facility] [address] [place] [address] ALT [Catalytic activity/Vol] U/L Normal 0-33 [facility] Comment on above: Performed By: #### C MP #### [facility] [address] [place] [address] Anion gap [Moles/Vol] 14 mmol/L Normal 9-15 [facility] Comment on above: Performed By: #### C MP #### [facility] [address] [place] [address] AST [Catalytic activity/Vol] 17 U/L Normal 0-35 [facility] Comment on above: Performed By: #### C MP #### [facility] [address] [place] [address] Bilirubin [Mass/Vol] 0.4 mg/dL Normal 0.2-0.7 [facility] Comment on above: Performed By: #### C MP #### [facility] [address] [place] [address] Calcium [Mass/Vol] 9.7 mg/dL Normal 8.5-9.9 [facility] Comment on above: Performed By: #### C MP #### [facility] [address] [place] [address] Chloride [Moles/Vol] 100 mmol/L Normal 95-107 [facility] Comment on above: Performed By: #### C MP #### [facility] [address] [place] [address] CO2 [Moles/Vol] 25 mmol/L Normal 20-31 [facility] Comment on above: Performed By: #### C MP #### [facility] [address] [place] [address] Creatinine [Mass/Vol] 0.81 mg/dL Normal 0.50-0.90 [facility] Comment on above: Performed By: #### C MP #### [facility] [address] [place] [address] GFR >60.0 Normal >60 [facility] Comment on above: Result Comment: >60 mL/min/1.73m2 EGFR, calc. for ages 18 and older using the MDRD formula (not corrected for weight), is valid for stable renal function. Performed By: #### C MP #### [facility] [address] [place] [address] GFR/1.73 sq M.predicted among blacks MDRD (S/P/Bld) [Vol rate/Area] mL/min/{1.73_m2} Normal >60 [facility] Comment on above: Result Comment: >60 mL/min/1.73m2 EGFR, calc. for ages 18 and older using the MDRD formula (not corrected for weight), is valid for stable renal function. Performed By: #### C MP #### [facility] [address] [place] [address] Globulin (S) [Mass/Vol] 3.3 g/dL Normal 2.3-3.5 [facility] Comment on above: Performed By: #### C MP #### [facility] [address] [place] [address] Glucose [Mass/Vol] 125 mg/dL Critically high 70-99 M [facility] Comment on above: Performed By: #### C MP #### [facility] [address] [place] [address] Potassium [Moles/Vol] 3.9 mmol/L Normal 3.4-4.9 [facility] Comment on above: Performed By: #### C MP #### [facility] [address] [place] [address] Protein [Mass/Vol] 7.4 g/dL Normal 6.3-8.0 [facility] Comment on above: Performed By: #### C MP #### [facility] [address] [place] [address] Sodium [Moles/Vol] 139 mmol/L Normal 135-144 [facility] Comment on above: Performed By: #### C MP #### [facility] [address] [place] [address] Urea nitrogen [Mass/Vol] 17 mg/dL Normal 8-23 [facility] Comment on above: Performed By: #### C MP #### [facility] [address] [place] [address] Lipid Panelon 10-09-2020 Cholesterol [Mass/Vol] 251 mg/dL Critically high 0-199 [facility] Comment on above: Result Comment: ATP III Cholesterol Classification is High. Performed By: #### L IPID #### [facility] [address] [place] [address] Cholesterol in HDL [Mass/Vol] 69 mg/dL Critically high 40-59 [facility] Comment on above: Result Comment: ATP III [...] CHD Performed By: #### L IPID #### [facility] [address] [place] [address] Cholesterol in LDL [Mass/Vol] 160 mg/dL Critically high 0-129 [facility] Comment on above: Result Comment: ATP III LDL Classification is High. Performed By: #### L IPID #### [facility] [address] [place] [address] Triglyceride [Mass/Vol] 108 mg/dL Normal 0-150 [facility] Comment on above: Result Comment: ATP III Triglycerides Classification is Normal. Performed By: #### L IPID #### [facility] [address] [place] [address] TSH w/Reflexon 10-09-2020 TSH w/Reflex 1.420 uIU/mL Normal 0.440-3.86 [facility] Comment on above: Performed By: #### T SHR #### [facility] [address] [place] [address] Vitamin B12 and Folateon Cobalamin (Vitamin B12) [Mass/Vol] 415 pg/mL Normal 232-1245 [facility] Comment on above: Performed By: #### B 12FO #### [facility] [address] [place] [address] Folate 11.7 ng/mL Normal 7.3-26.1 [facility] Comment on above: Result Comment: As o f 15, the methodology has changed. Results from this methodology should not be compared with results from previous methodology. Performed By: #### B 12FO #### [facility] [address] [place] [address] Vitamin Don 10-09-2020 Vitamin D 46.4 ng/mL Normal 30.0-100.0 [facility] Comment on above: Result Comment: (30- 100 ng/mL) Optimum Level This assay accurately quantifies the sum of vitamin D3, 25-Hydroxy and vitamin D2, 25-Hyroxy. Performed By: #### V ITD #### [facility] [address] [address] SURGICAL PATH REPORTon 10-02 SURGICAL PATH REPORT [facility] Department of Pathology [address] [place] [id number] Name: MYRADNA YANES : 1940 Financial [id number] Number: Gender: Female Location: [facility] Admit 80 years Attending SARKIS VALERO Age: Provider: Ordering SARKIS VALERO Provider: Consulting: Surgical Pathology Report ACCESSION: COLLECTED DATE/TIME: RECEIVED DATE/TIME: PATHOLOGIST: [id number] 09/25/2020 16:30 EDT 09/26/2020 12:22 EDT JARETH ALDNAA, [facility] Final Diagnosis Report for THE [place], [place] ILEOCOLIC RESECTION: - LOW GRADE APPENDICEAL [...] Date10/02/2020 13:59 EDT Number: Time: [facility] Department of Pathology [address] [place] [id number] Name: MYRANDA YANES : 1940 Financial [id number] Number: Gender: Female Location: [facility] Admit 80 years Attending SARKIS VALERO Age: Provider: Ordering SARKIS VALERO Provider: Consulting: Surgical Pathology Report ACCESSION: COLLECTED DATE/TIME: RECEIVED DATE/TIME: PATHOLOGIST: [id number] 09/25/2020 16:30 EDT 09/26/2020 12:22 EDT JARETH ALDANA, [facility] Final Diagnosis Mesenteric Margin Uninvolved [...] 10/02/2020 13:59 EDT Number: Time: [facility] Department of Pathology [address] [place] [id number] Name: MYRANDA YANES : 1940 [facility] [id number] Number: Gender: Female Location: [facility] Admit 80 years Attending SARKIS VALERO Age: Provider: Ordering SARKIS VALERO Provider: Consulting: Surgical Pathology Report ACCESSION: COLLECTED DATE/TIME: RECEIVED DATE/TIME: PATHOLOGIST: [id number] 09/25/2020 16:30 EDT 09/26/2020 12:22 EDT JARETH ALDANA, [facility] Clinical Data PRE-OP DIAGNOSIS: Not [...] measuring 4.2 x 2.5 x 1.5 cm. Dynamo Repairer sections are submitted under the following designations: 1 - Proximal line of resection 2 - Distal line of resection 3-4 - Dynamo Repairer sections of specimen from proximal to distal [...] node recovery (more content not included)... Normal [facility] Comment on above: Performed By: #### [id number] #### [facility] Laboratory Services [address] [place] [id number] Logistics Assistant: Figueroa Coto MD Encounters Encounter Date Encounter Type Care Provider Facility Start: 11-19-2022 End: 11-20-2022 ambulatory [facility] Start: 08-18-2022 End: 08-18-[address] WHITNEY GOODMAN . Facility:[facility] Start: 07-02-2022 End: 07-03-2022 ambulatory [facility] Start: 06-18-2022 End: 06-18-[address] WHITNEY GOODMAN . Facility:[facility] Start: 06-04-2022 End: 06-04-[address] WHITNEY GOODMAN . Facility:[facility] Start: 05-28-2022 End: 05-29-2022 ambulatory [facility] Start: 05-17-2022 End: 05-17-[address] WHITNEY GOODMAN . Facility:[facility] Start: 05-11-2022 Evaluation and manag ement of inpatient [facility] Start: 05-11-2022 Evaluation and manag ement of inpatient [facility] Start: 05-11-2022 Evaluation and manag ement of inpatient [facility] Start: 05-11-2022 Evaluation and manag ement of inpatient [facility] Start: 05-10-2022 Emergency department patient visit REMY RAMSAY [facility] Start: 05-10-2022 End: 05-12-2022 Evaluation and management of inpatient ANH ASHLEY [facility] Start: 05-10-2022 End: 05-10-[address] WHITNEY GOODMAN . Facility:[facility] Start: 04-06-2022 End: 04-07-[address] WHITNEY GOODMAN . Facility:[facility] Start: 03-30-2022 End: 03-31-[address] [facility] Start: 02-23-2022 End: 02-24-[address] [facility] Start: 01-28-2022 End: 02-01-2022 Evaluation and management of inpatient DR WHITNEY GOODMAN . Facility:[facility] Start: 01-25-2022 End: 01-26-2022 ambulatory JASKARAN BEAL [facility] Start: 01-10-2022 End: 01-14-[address] WHITNEY GOODMAN . Facility:[facility] Start: 01-06-2022 End: 01-08-[address] WHITNEY GOODMAN . Facility: Start: 11-21-2021 End: 12-01-2021 Evaluation and management of inpatient WHITNEY GOODMAN Facility:[facility] Start: 11-21-2021 End: 11-21-[address] WHITNEY GOODMAN . Facility: Start: 11-06-2021 End: 11-12-2021 Evaluation and management of inpatient WHITNEY GOODMAN Facility:[facility] Start: 11-05-2021 End: 11-06-[address] WHITNEY GOODMAN . Facility: Start: 11-11-2020 End: 11-14-2020 ambulatory WHITNEY GOODMAN [facility] Start: 11-11-2020 End: 11-13-2020 Subsequent hospital visit by physician [facility] Schedule [facility] Comment on above: Arrived Start: 10-17-2020 End: 10-20-2020 ambulatory DOLORES CHAPA [facility] Start: 10-17-2020 End: 10-19-2020 Subsequent hospital visit by physician [place] [facility] 2 [facility] MRI Comment on above: Cerebrovascular acci dent (CVA), unspecified mechanism (HCC); Memory problem; Parkinson's disease (HCC) Procedures Date Procedure Procedure Detail Performing Clinician Start: 11-21-2021 Antibody screen WHITNEY GOODMAN Comment on above: Performed By: #### 5 [id number] #### [facility] [address] Start: 11-06-2021 Antibody screen WHITNEY GOODMAN Comment on above: Performed By: #### 6 [id number] ####[facility] [address] Start: 10-17-2020 Mri brain brain stem w/o contrast material Dolores Chapa PA-C Work Phone: Start: 10-15-2020 H/O: surgery Laparoscopic s urgical procedure converted to open procedure [facility] Schedule Plan of Treatment Date Care Activity Detail Author Start: 10-09-2021 [facility]inine [facility] Start: 10-09-2021 Potassium monitoring Potassium monitoring [facility] [employer] Phone: Start: 12-31-2020 Influenza vaccination [facility] [employer] Phone: Start: 11-14-2020 End: 11-14-2020 Patient encounter procedure 11/14/2020 Office Visit Neurology Dolores Chapa PA-C [address] [id number] [facility] [place] [facility] Start: 2007 Pneumococcal 65+ years Vaccine (1 of 1 - PPSV23) Pneumococcal 65+ years Vaccine (1 of 1 - PPSV23) [employer] Phone: Start: 1997 Screening for osteoporosis DEXA (modify frequency per FRAX score) [employer] Phone: Start: 1992 Shingles Vaccine (1 of 2) Shingles Vaccine (1 of 2) [employer] Phone: Start: 1961 DTaP/Tdap/Td vaccine (1 - Tdap) DTaP/Tdap/Td vaccine (1 - Tdap) [employer] Phone: Start: 1954 COVID-19 Vaccine (1) COVID-19 Vaccine (1) [employer] Phone: Start: 1940 Hepatitis C screening Hepatitis C screen [employer] Phone: Payers Date Payer Category Payer Medicare [id number] 1959 Private Health Insurance [id number] 1940 Unknown [id number] 2.16.8 [id number] 1940 Unknown [id number] 2.16.8 [id number] 1940 Unknown [id number] 2.16.8 [id number] 1940 Unknown [id number] 2.16.8 40.1.378601.3.579.2.647 1940 Unknown [id number] 2.16.84 0.1.638851.3.579.2.593 1940 Unknown [id number] 2.16.84 0.1.057088.3.579.2.593 1940 Unknown [id number] 2.16.84 0.1.523270.3.579.2.593 1940 Unknown [id number] 2.16.84 0.1.191453.3.579.2.593 1940 Unknown [id number] 2.16.84 0.1.919679.3.579.2.593 1940 Unknown [id number] 2.16.84 0.1.427288.3.579.2.593 1940 Unknown [id number] 2.16.84 0.1.587589.3.579.2.593 1940 Unknown [id number] 2.16.84 0.1.824233.3.579.2.593 1940 Unknown [id number] 2.16.84 0.1.593171.3.579.2.593 1940 Unknown [id number] 2.16.84 0.1.056570.3.579.2.593 1940 Unknown [id number] 2.16.84 0.1.205225.3.579.2.593 Social History Date Type Detail Facility Start: 10-09-2020 Tobacco smoking stat [facility] Unknown if ever smoked [employer] Phone: Start: 1940 Sex Assigned At Not on file M [employer] Phone: Exposure to SARS-CoV -2 (event) Not sure [facility] Clinical Notes 06-12-2020 to 11-19-2022 Note Date [...] Date Anxiety COPD (chronic obstructive pulmonary disease) ([facility]) Dementia ([facility]) Dysphagia mechanical soft diet with nectar thick liquids and instruction to drink after each bite of food Femoral neck fracture ([facility]) 05/10/2022 right side GERD (gastroesophageal reflux disease) Hyperlipidemia Hypertension Parkinson's disease ([facility]) Objective General: There is no height or [...] questions/concerns. Renea Ortiz MD Orthopaedic Surgery PGY-2 [facility] 11/19/22 10:31 AM [facility] 07-02-2022 Note Subjective Chief complaint: Chief Complaint [...] Date Anxiety COPD (chronic obstructive pulmonary disease) ([facility]) Dementia ([facility]) Dysphagia mechanical soft diet with nectar thick liquids and instruction to drink after each bite of food Femoral neck fracture ([facility]) 05/10/2022 right side GERD (gastroesophageal reflux disease) Hyperlipidemia Hypertension Parkinson's disease ([facility]) Objective General: There is no height or [...] questions/concerns. Мария Pillai MD Orthopedic Surgery, PGY-2 [facility] By using the attestations below, the signing [...] be an additional personal documentation from me. [facility] 05-28-2022 Note Subjective Chief complaint: Chief Complaint [...] Date Anxiety COPD (chronic obstructive pulmonary disease) ([facility]) Dementia ([facility]) Dysphagia mechanical soft diet with nectar thick liquids and instruction to drink after each bite of food Femoral neck fracture ([facility]) 05/10/2022 right side GERD (gastroesophageal reflux disease) Hyperlipidemia Hypertension Parkinson's disease ([facility]) Objective General: Body mass index is 22.15 [...] questions/concerns. Мария Pillai MD Orthopedic Surgery, PGY-2 [facility] By using the attestations below, the signing [...] be an additional personal documentation from me. [facility] 05-12-2022 Note Spoke with pt's son this morning to inform of DC today. Son does not want pt to return to [facility]. [facility]. PT/OT recommends SNF, phoned and sent referral to [facility]. They will accept pt under [employer] Waiver and start precert. [facility] will transport pt at 6:30pm. Transfer packet done and AVS/DC orders sent. Skye NESBITT will call with report. Son will meet pt at [facility] this evening. [facility] 05-12-2022 Note PHYSICAL THERAPY NONI ANDERSONATION 05/12/22 1527 Time Calculation Start Time 1032 Stop Time 1049 Time Calculation (min) 17 min PT Evaluation Time Entry PT Evaluation (Moderate) Time Entry 17 History of Present Illness 81 y/o female presenting as transfer from [facility] for fall and R hip fracture. Per report, she fell at her snf and had right hip pain, she was [...] Access Level entry Prior Function Level of [place] (independent prior to L hip fx in [...] training;Equipment eval/education;Bed mobility (more content not included)... [facility] 05-12-2022 Note Hospital Medicine Discharge Summary Final Discharge Diagnosis: #Traumatic fall: #Right femoral neck fracture s/p R hemiarthroplasty 05/11/21 #Hypertension: #Gastroesophageal reflux disease #Advanced dementia #History of severe anxiety Admission Diagnosis: Closed fracture of neck of right femur, initial encounter ([facility]) [S72.001A] Fall, initial encounter [W19.XXXA] Fall at home, sequela [W19.XXXS, Y92.009] Hospital course: 81 years old female lady with a medical history of hypertension, advanced vascular dementia, deafness type II, Parkinson disease, peripheral neuropathy, gastroesophageal reflux disease, hypothyroidism, ideation hours anxiety disorder, obstructive sleep apnea, thrombocytopenia unspecified, iron deficiency anemia. She came into [facility] ED as a transfer from outside hospital /[facility] for fall and hip fracture and was [...] PCP after discharge. Dear Dr. Maxine MD, [place] is advised to follow up with you [...] adhesive tape-silicones, ciprofloxacin, oxycodone-acetaminophen, and sulfamethoxazole-trimethoprim. Disposition: Long-Term Facility Discharge Condition: Stable Code Status: Full [...] and care-team, med-rec (more content not included)... [facility] 05-12-2022 Note Occupational Therapy Occupational Therapy Evaluation [...] unspecified, iron deficiency anemia. She came into [facility] ED as a transfer from outside hospital /[facility] for fall and hip fracture. R hip [...] COPD (chronic obstructive pulmonary disease) (CMS/HCC) Dementia ([facility]/HCC) Dysphagia mechanical soft diet with nectar thick liquids and instruction to drink after each bite of food Femoral neck fracture (CMS/HCC) 05/10/2022 right side GERD (gastroesophageal reflux disease) Hyperlipidemia Hypertension Parkinson's disease ([facility]/HCC) Past Surgical History: Procedure Laterality Date HIP [...] Level of Function Prior Function Level of [place]: Independent with ADLs and functional transfers, Independent [...] with multiple promp (more content not included)... [facility] 05-12-2022 Note I reviewed the patie nt's [...] female who sustained a fall at the snf that resulted in right femoral neck fracture, [...] kg (151 lb 14.4 oz) (05/11 1299) Welch Coma Scale Score: 14 Intake/Output Summary (Last [...] female who presents after a fall at snf resulting in a right femoral neck fracture. Assessment/Plan Principal Problem: Fall at home, sequela Active Problems: Closed fracture of neck of right femur ([facility]) Plan: -Te (more content not included)... [facility] 05-12-2022 Note ------ Attestation signed by Carlie [...] -- -- -- (more content not included)... [facility] 05-12-2022 Note Patient: Myranda Connolly ick Vitals [...] complications: Patient has no apparent anesthesia complications [facility] 05-12-2022 Note Problem: Fall Risk Goal: LTG-No falls Outcome: Progressing The patient is Moderately Stable - Low risk of patient condition declining or worsening The patient's goals for the shift include comfort The clinical goals for the shift include VSS [facility] 05-11-2022 Note Patient: Myranda toussaint Procedure Summary Date: 05/11/22 Room / Location: [facility] OPERATING ROOM 02 / [facility] Operating Room Anesthesia Start: 1611 Anesthesia Stop: 1926 Procedure: Right femur hemiarthroplasty (Right: Thigh - Leg Upper) Diagnosis: Closed fracture of neck of right femur, initial encounter ([facility]) (Closed fracture of neck of right femur, initial encounter ([facility]) [S72.001A]) Surgeons: Carlie Shine MD Responsible Provider: [...] Hydration status: acceptable No notable events documented. [facility] 05-11-2022 Note Airway Date/Time: 05/11/2022 4:24 PM Urgency: elective General Information and Staff Patient location during procedure: OR Anesthesiologist: Fito Garcia MD Resident/BIOLOGICAL SCIENCES PROFESSOR/CAA: Jose Martin Myers DO Performed: resident/BIOLOGICAL SCIENCES PROFESSOR/CAA Indications and Patient Condition Indications for airway [...] 1 Number of other approaches attempted: 0 [facility] 05-11-2022 Note Patient: Myranda toussaint Procedure Information Date/Time: 05/11/22 1615 Procedure: Right femur hemiarthroplasty (Right: Thigh - Leg Upper) Location: [facility] OPERATING ROOM 02 / [facility] Operating Room Surgeons: Carlie Shine MD Relevant [...] Plan discussed with attending. Additional Equipment Requests [facility] 05-11-2022 Note Attempted screen and unable to see due to pt being off unit. [facility] 05-11-2022 Note Hospital Medicine Daily Progress Note - 05/11/2022 9:48 AM; Room: [address] [place] [address] Admission: 05/10/2022 7:28 PM; Length of stay: 1 days THE HOSPITALIST TEAM PREFERS TO USE [employer] CHAT FOR COMMUNICATION 7AM-7PM. IF I DO NOT RESPOND WITHIN 15 MINUTES, PLEASE PAGE ME/CALL THROUGH THE HEARING THERAPY TEACHER. FROM 7PM-7AM, PLEASE PAGE [phone](COVR) Code Status: Full Code Discharge Destination: snf Expected Discharge: 3-5 days Overview Patient is [...] Closed fracture of neck of right femur ([facility]) Assessment and Plan #Traumatic fall: #Right femoral [...] LDL 148 05/10/2022 No results found for: [id number], IRON, TIBC, C3, C4, AISHWARYA, CANCA, ASO, [...] pulmonary nodule. Additional (more content not included)... [facility] 05-11-2022 Note PHYSICAL THERAPY NONI CARNEY History of Present Illness 81 y/o female presenting as transfer from [facility] for fall and R hip fracture. Per report, she fell at her snf and had right hip pain, she was found on x-ray and CT at outside facility to have a right femoral neck fracture with no other injuries. Past Medical History Advanced vascular dementia, HTN, anxiety, COPD, GERD, L hip ORIF, L tibia IM nikhil, deafness, Parkinson's dz, peripheral neuropathy, hypothyroidism, LAURITA, thrombocytopenia. Current Diagnoses R femoral neck fracture Resident at [facility] Pt to have surgery for R femoral neck fracture. Will Attempt eval 05/12 as pt's medical status permits. Catalina Lemus PT, MPT [facility] Acute Rehabilitation [facility] 05-11-2022 Note Occupational Therapy Cancel Note Reason: Surgery pending: scheduled for R femur hemiarthroplasty this date Testing: Refused: Medically Unstable: Bed Rest: Dialysis: Awaiting clarification of precautions: Intubated/Sedated: Other: OT will re-attempt as able. [facility] 05-11-2022 Note Problem: Fall Risk Goal: LTG-No falls Outcome: Progressing The patient is Moderately Stable - Low risk of patient condition declining or worsening The patient's goals for the shift include comfort The clinical goals for the shift include Stable vital signs, comfort, and safety [facility] 05-11-2022 Note Pharmacy completed a medication reconciliation for Myranda Yanes. Patient is a 81 y.o. year old female. Patient has allergies to: Sulfa (sulfonamide antibiotics), Adhesive, Adhesive tape-silicones, Ciprofloxacin, Oxycodone-acetaminophen, and Sulfamethoxazole-trimethoprim Medication list was obtained from patient's nursing facility records ([facility]). Home medication list has been updated. Please call pharmacy with any questions. Thank you! Thanks, Elisha Painter, PharmD, 05/10/22 [facility] 03-30-2022 Note *[facility] Post-Op F/U Reported by patient. Location: left Associated Symptoms: no warmth; no ecchymosis; no drainage; no swelling; no fever; no chills [id number] IM LT TIBIA [id number] LT HIP NAIL DATE OF SURGERY: 11/06/2021 SURGEON: Jaskaran Beal M.D. ASSISTANTS: 1. Ankit Tobias M.D. 2. Jus Yancey M.D. 3. Manjindre Davis M.D. PREOPERATIVE DIAGNOSIS: Left intertrochanteric fracture. [...] left tibia, initial encounter for closed fracture [facility] 02-23-2022 Note *[facility] [facility] Post-Op F/U Reported by patient. Location: left Associated Symptoms: no warmth; no ecchymosis; no drainage; no swelling; no fever; no chills [id number] IM LT TIBIA [id number] LT HIP NAIL DATE OF SURGERY: 11/06/2021 SURGEON: Jaskaran Bael M.D. ASSISTANTS: 1. Ankit Tobias M.D. 2. [...] left tibia, initial encounter for closed fracture [facility] 02-23-2022 Note Ft hip [facility] 01-25-2022 Note *[facility] Post-Op F/U Reported by patient. Location: left Associated Symptoms: no warmth; no ecchymosis; no drainage; no swelling; no fever; no chills [id number] IM LT TIBIA [id number] LT HIP NAIL DATE OF SURGERY: 11/06/2021 [...] left tibia, initial encounter for closed fracture [facility] 12-13-2021 Note MR#: [id number] I [facility] Pt. Name: Myranda Yanes Admitted: 11/21/2021 Discharged: 12/01/2021 Date of : 1940 Physician: Jaskaran Beal M.D. DISCHARGE SUMMARY PRIMARY DIAGNOSIS: Left tibial shaft fracture. HOSPITAL COURSE: Myranda is a 81-year-old female known well to the [facility] after recently undergoing a left hip cephalomedullary nail. The patient subsequently was at a [place] [facility] and fell and fractured her left [...] The patient was subsequently discharged back to [facility] with appropriate DVT prophylaxis as well [...] Davis MD Date Trans: 12/13/2021 11:15 Lisset/lalo DN_JN:[id number] cc: Whitney Goodman M.D. [address] [address] [facility] 11-13-2021 Note MR#: [id number] I [facility] Pt. Name: Myranda Yanes Admitted: 11/06/2021 Discharged: [...] Young MD Date Trans: 11/13/2021 04:04 P/mmo DN_JN:[id number] cc: Whitney Goodman M.D. [address], [facility] [place] [address] [facility] 11-09-2021 Note MR#: [id number] I [facility] Pt. Name: Myranda Yanes Admitted: 11/06/2021 Discharged: [...] Arvizu MD Date Trans: 11/09/2021 10:53 A/lalo DN_JN:[id number] cc: Whitney Goodman M.D. [address] [facility] [address] [facility] 04-06-2021 Note Chief Complaint New [...] (Rash) ciprofloxacin (Muscle weakness) sulfa drugs (Hives) [facility] Comment on above: Result Comment: Elec tronically Signed By: Kalpana ALDANA, Winston X\.br\Date and Time Signed: 04/06/21 17:14 EST 06-12-2020 Note Patient Outreach ([place] [facility]) ------ MYRANDA YANES ([id number]) 1940 F Date Time Provider Department 06/12/20 MILA LEMUS During your visit today, we recorded the following information about you: Allergies As of Date: 06/12/2020 Noted Allergy Reaction SULFA (SULFONAMIDE ANTIBIOTICS) 06/23/2015 18 - Unknown Comments: She cannot reaction Date Reviewed: 01/08/2019 Reviewed by: Nataliia Adams Ma - Fully Assessed Order(s):SARS-COVID VACCINE 1ST DOSE APPT [[id number]] Order #: [id number] FUTURE Prescriptions as of 06/12/2020 Sig: PANTOPRAZOLE [...] 01/08/2019 Eczema [L30.9] 01/08/2019 Encounter Status:Closed by [employer], PRODUSER on 06/16/20 [facility] Evaluation note Diagnosis Cerebrovascular accident (CVA), unspecified mechanism (HCC) Memory problem Memory loss Parkinson's disease (HCC) Paralysis agitans documented in this encounter [facility] [employer] Phone: Summary Purpose Family History No Family [...] section and content) DATE CREATED AUTHOR 10/03/2020 [facility] DATE CREATED AUTHOR AUTHOR'S ORGANIZ ATION 10/11/2020 [facility] DATE CREATED AUTHOR AUTHOR'S ORGANIZ ATION 11/14/2020 [facility] DATE CREATED AUTHOR AUTHOR'S ORGANIZ ATION 05/26/2021 [facility] DATE CREATED AUTHOR AUTHOR'S ORGANIZ ATION 07/19/2021 [facility] DATE CREATED AUTHOR AUTHOR'S ORGANIZ ATION 12/29/2021 [facility] DATE CREATED AUTHOR AUTHOR'S ORGANIZ ATION 08/22/2022 [facility] DATE CREATED AUTHOR AUTHOR'S ORGANIZ ATION 11/20/2022 [facility] Reason for Visit (unrecogniz ed section and content) Status Reason Specialty Diagnoses / Procedures Referre d By Contact Referred To Contact Closed Radiology Diagnoses Cerebrovascular accident (CVA), unspecified mechanism (HCC) Memory problem Parkinson's disease (HCC) Procedures MRI BRAIN WO CONTRAST MRI BRAIN W WO CONTRAST Dolores Chapa PA-C [address] [facility] [address] [place] [id number] Status Reason Specialty Diagnoses / Procedures Re ferred By Contact Referred To Contact Closed Sleep Center Diagnoses Fatigue, unspecified type Procedures Baseline Diagnostic Sleep Study Dolores Chapa PA-C [address] [facility] [address] [place] [address] FOR RECORDS PERTAINING TO PATIENTS WHO ARE [...] BE BASED ON THE PRIMARY CLINICAL RECORDS. [employer] provides no warranty or guarantee of the accuracy or completeness of information in this document.
[2024-11-09 10:48] LABS: Alanine Aminotransferase 19 U/L (14-59); Albumin Globulin Ratio 0.9; Albumin Level 3.2 g/dL (3.4-5.0); Alkaline Phosphatase 88 U/L (46-116); Anion Gap 14.0; Aspartate Amino Transferase 18 U/L (15-37); Blood Urea Nitrogen 21.0 mg/dL (7.0-18.0); Calcium 9.3 mg/dL (8.5-10.1); Carbon Dioxide 28.3 mmol/L (21.0-32.0); Chloride 107 mmol/L (98-107); Cholesterol 254 mg/dL (<=200); Estimated GFR (African America >60 (>=60 mL/min/1.73m^2); Estimated GFR (Non-African Ame >60 (>=60 mL/min/1.73m^2); Free T3 2.06 pg/mL (2.18-3.98); Globulin 3.6 g/dL; Glucose 86 mg/dL (74-106); HDL Cholesterol 71 mg/dL (40-60); Potassium 4.3 mmol/L (3.5-5.1); Sodium 145 mmol/L (136-145); Thyroid Stimulating Hormone 0.951 uIU/mL (0.358-3.740); Total Protein 6.8 g/dL (6.4-8.2); Triglycerides 109 mg/dL (<=150); VLDL CHOLESTEROL 21.8 mg/dL
[2024-11-09 13:50] LABS: Hematocrit 42.8 % (36.0-48.0); Hemoglobin 13.7 g/dL (12.0-16.0); Immature Granulocytes Abs Auto 0.03 10^3/uL (0.00-0.03); Immature Granulocytes Pct Auto 0.3 % (0.0-0.5); Lymphocytes Absolute Auto 2.2 10^3/uL (1.2-3.8); Mean Corpuscular HGB Conc 32.0 g/dL (29.9-35.2); Mean Corpuscular Hemoglobin 30.1 pg (26.7-34.0); Mean Corpuscular Volume 94.1 fL (81.0-99.0); Platelet Count 179 10^3/uL (150-450); Red Blood Count 4.55 10^6/uL (4.20-5.40); White Blood Count 9.3 10^3/uL (4.0-11.0)
[2024-11-09 14:23] LABS: Iron 129.0 ug/dL (50.0-170.0)
== END 2024-11-09 07:43 | disposition home or self-care (01) ==
LOC: LAB 07:42
PROVIDERS: PCP Family Medicine; Visit Provider Family Medicine
DX: E03.9 Hypothyroidism, unspecified (principal); I10 Essential (primary) hypertension; G20.C Parkinsonism, unspecified; F03.90 Unspecified dementia, unspecified severity, without behavioral disturbance, psychotic disturbance, mood disturbance, and anxiety; E78.5 Hyperlipidemia, unspecified; R73.09 Other abnormal glucose; D64.9 Anemia, unspecified; E55.9 Vitamin D deficiency, unspecified; R53.83 Other fatigue
CPT/HCPCS: 36415; 80053; 80061; 82306; 83036; 83540; 84436; 84443; 84481; 85025